=== PATIENT | female | born 1950 | race Caucasian/White ===

== ENCOUNTER 2023-01-18 12:01 | Outpatient (OUT) | payer MEDICARE, SELFPAY ==
[2023-01-18 12:23] LABS: Basophils Percent Auto 0.4 % (0.2-2.0); Eosinophils Absolute Auto 0.1 10^3/uL (0.0-0.7); Eosinophils Percent Auto 1.1 % (0.9-7.0); Hematocrit 40.8 % (36.0-48.0); Hemoglobin 13.7 g/dL (12.0-16.0); Immature Granulocytes Abs Auto 0.06 10^3/uL (0.00-0.03); Immature Granulocytes Pct Auto 0.8 % (0.0-0.5); Lymphocytes Percent Auto 13.5 % (20.5-60.0); Mean Corpuscular HGB Conc 33.6 g/dL (29.9-35.2); Mean Corpuscular Volume 92.3 fL (81.0-99.0); Monocytes Absolute Auto 0.4 10^3/uL (0.3-0.8); Monocytes Percent Auto 5.4 % (1.7-12.0); Neutrophils Absolute Auto 5.6 10^3/uL (1.4-6.5); Neutrophils Percent Auto 78.8 % (43.0-75.0); Platelet Count 226 10^3/uL (150-450); Red Blood Count 4.42 10^6/uL (4.20-5.40); Red Cell Distribution Width 14.5 % (11.0-15.0); White Blood Count 7.1 10^3/uL (4.0-11.0)
[2023-01-18 12:35] LABS: INR 0.97; Prothrombin Time 10.3 sec (9.0-11.6)
[2023-01-18 13:39] LABS: Anion Gap 13.1; BUN Creatinine Ratio 23.8; Calcium 9.9 mg/dL (8.5-10.1); Carbon Dioxide 25.1 mmol/L (21.0-32.0); Chloride 106 mmol/L (98-107); Estimated GFR (African America >60 (>=60); Estimated GFR (Non-African Ame 51 (>=60); Glucose 109 mg/dL (74-106); Potassium 4.2 mmol/L (3.5-5.1); Sodium 140 mmol/L (136-145); Thyroid Stimulating Hormone 2.475 uIU/mL (0.358-3.740)
== END 2023-01-18 12:02 | disposition home or self-care (01) ==
PROVIDERS: PCP Family Medicine; Visit Provider Family Medicine
DX: R23.3 Spontaneous ecchymoses (principal); I10 Essential (primary) hypertension
CPT/HCPCS: 36415; 80048; 84443; 85025; 85610

== ENCOUNTER 2023-05-31 13:39 | Outpatient (OUT) | payer MEDICARE, SELFPAY ==
--- NOTE | 2023-05-31 14:00 | XR_ITS ---
The [address] [address] Patient Name: LINDA BARBOSA MRN: [id number] date: 1950 Sex: F Assigned Patient Location: [facility] Current Patient Location: Accession/Order Number: [id number] Exam Date: 05/31/2023 14:10 Report Date: 06/01/2023 00:45 At the request of: KATELYNN CLARK Procedure: XR lumbar spine 2-3V EXAMINATION: XR lumbar spine 2-3V HISTORY: Low Back Pain M54.50 , chronic; left foot numbness COMPARISON: No relevant comparison available. FINDINGS: BONES: Prominent scoliotic curvature of lumbar spine. Grade 1 retrolisthesis of L2 on 3, L3 on 4, and grade 1 anterior listhesis of L4 on 5, and grade 2 anterior listhesis of L5 on S1. Degenerative endplate changes L1, L2, L3 versus mild compression fractures. Multilevel moderate degenerative facet arthropathy. DISC SPACES: Marked narrowing L1-L2, L2-L3, L3-L4, L5-S1. PARASPINOUS: Negative. No paraspinous abnormality is seen. OTHER: Bilateral hip replacements. XR/XR lumbar spine 2-3V IMPRESSION: 1. Multilevel marked degenerative changes of lumbar spine. Electronically authenticated by: TIM TORREZ Date: 06/01/2023 00:45
== END 2023-05-31 13:40 | disposition home or self-care (01) ==
LOC: LAB 13:43 → RAD 13:51
PROVIDERS: PCP Family Medicine; Visit Provider Family Medicine
DX: G62.9 Polyneuropathy, unspecified (principal); M54.50 Low back pain, unspecified; M51.36 Other intervertebral disc degeneration, lumbar region
CPT/HCPCS: 72100

== ENCOUNTER 2023-06-13 11:12 | Outpatient (OUT) | payer MEDICARE, SELFPAY | END 2023-06-13 11:13 | disposition home or self-care (01) | LOC: LAB 11:13 | PROVIDERS: PCP Family Medicine; Visit Provider Family Medicine | DX: G62.9 Polyneuropathy, unspecified (principal) | CPT/HCPCS: 36415; 82607; 82746 ==

== ENCOUNTER 2023-06-29 13:34 | Outpatient (OUT) | payer MEDICARE, SELFPAY ==
--- NOTE | 2023-06-29 13:38 | MR_ITS ---
[address] [address] Patient Name: LINDA BARBOSA MRN: [id number] date: 1950 Sex: F Assigned Patient Location: MRI Current Patient Location: Accession/Order Number: [id number] Exam Date: 06/29/2023 13:45 Report Date: 07/01/2023 16:44 At the request of: KATELYNN CLARK Procedure: MR lumbar spine wo con EXAM: MR lumbar spine wo con HISTORY: Degenerative Disc Disease M51.36 COMPARISON: None. TECHNIQUE: MRI images obtained with multiple sequences. Noncontrast MRI of the lumbar spine. MRI sequences obtained by standard department protocol. FINDINGS: The conus ends at L1-L2. No abnormal signal to terminal spinal cord. T10-11: No spinal canal stenosis. No neural foraminal stenosis. T11-T12: No spinal canal stenosis or neural foraminal stenosis. T12-L1: Mild disc degeneration. Mild spinal canal narrowing. Bilateral mild neural foraminal narrowing. Mild facet joint arthropathy. L1-L2: Intervertebral disc degeneration. Retrolisthesis of L1 on L2 measuring 0.7 cm. Moderate spinal canal stenosis. Bilateral mild neural foraminal narrowing. Mild facet joint arthropathy. L2-L3: Intervertebral disc degeneration. Mild retrolisthesis of L2 on L3 measuring 0.6 cm. Moderate spinal canal stenosis. Moderate right and mild left neural foraminal narrowing. Mild facet joint arthropathy. L3-L4: Intervertebral disc height is preserved. No spinal canal stenosis. No neural foraminal stenosis. Mild facet joint arthropathy. L4-L5: Intervertebral disc degeneration. Anterolisthesis of L4 on L5 measuring 0.6 cm. Bilateral moderate neural foraminal narrowing. Bilateral advanced facet joint arthropathy. Mild spinal canal narrowing. L5-S1: Osseous fusion of the L5-S1 level. Anterolisthesis of L5 on S1 measuring 0.8 cm. Moderate to severe spinal canal stenosis. Bilateral advanced facet joint arthropathy. Bilateral moderate neural foraminal narrowing. MR/MR lumbar spine wo con IMPRESSION: 1. Moderate to severe spinal canal stenosis at L5-S1. 2. Moderate spinal canal stenosis at L2-L3. 3. Moderate neural foraminal narrowing at bilateral L4-L5 and L5-S1. 4. Advanced facet joint arthropathy at L4-5 and L5-S1. 5. Other degenerative findings as described. Electronically authenticated by: RYLIE CASTILLO Date: 07/01/2023 16:44
== END 2023-06-29 13:35 | disposition home or self-care (01) ==
LOC: MRI 13:34
PROVIDERS: PCP Family Medicine; Visit Provider Family Medicine
DX: M51.36 Other intervertebral disc degeneration, lumbar region (principal); M48.061 Spinal stenosis, lumbar region without neurogenic claudication
CPT/HCPCS: 72148

== ENCOUNTER 2023-08-16 12:48 | Outpatient (OUT) | payer MEDICARE, SELFPAY ==
--- NOTE | 2023-08-16 12:55 | US_ITS ---
The [address] [address] Patient Name: LINDA BARBOSA MRN: [id number] date: 1950 Sex: F Assigned Patient Location: US Current Patient Location: [place] Accession/Order Number: [id number] Exam Date: 08/16/2023 13:00 Report Date: 08/16/2023 15:12 At the request of: KATELYNN CLARK Procedure: US venous doppler LE RT EXAM: US venous doppler LE RT HISTORY: Localized Edema COMPARISON: None. FINDINGS: There is thrombus within the common femoral vein, the profunda femoral vein, the femoral vein extending to the popliteal vein. There are segments within the femoral vein which are occlusive, though the thrombosis is otherwise partially occlusive. Subcutaneous edema is noted in the foreleg. Superficial venous thrombosis is also noted at the junction of the greater saphenous vein with the common femoral vein. US/US venous doppler LE RT IMPRESSION: 1. Deep venous thrombosis extending from the right common femoral vein into the superficial femoral vein to the level of the popliteal vein. There is also thrombosis of the deep profunda femoral vein. 2. Superficial venous thrombosis of the great saphenous vein at its junction with the common femoral vein. Electronically authenticated by: PILAR ADAMS Date: 08/16/2023 15:12
--- OUTSIDE RECORDS SUMMARY | 2023-08-16 13:03 | XMS_ITS | CCD ---
Author Name Unknown Address [address] [place] [address] Organization [facility] Care Team Providers Care Vegetable Grader Name Role Phone Wayne Mccallum Unavailable Jose Najera II Unavailable [phone] MD Vashti Clark Primary Care Provider [phone] MD Jose Najera II Attending Provider Jose Najera II Admitting Unavailabl e Yoakum II, Jose Mandel Attending Unavailabl e Vashti Clark Primary Care Unavailable Yoakum II, Jose Mandel Admitting Unavailabl e Reinaldo II, Jose Mandel Attending Unavailabl e ClarkVashti Primary Care Unavailable Yoakum II, Jose Mandel Admitting Unavailabl e Yoakum II, Jose Mandel Attending Unavailabl e ClarkVashti Primary Care Unavailable Yoakum KRISTY, Jose Mandel Admitting Unavailabl e Reinaldo II, Jose Mandel Attending Unavailabl e Vashti Clark Primary Care Unavailable Reinaldo II, Jose Mandel Admitting Unavailabl e Yoakum II, Jose Mandel Attending Unavailabl e ClarkVashti Primary Care Unavailable AMBER, DR VASHTI Porter Attending Unavailable AMBER, DR VASHTI Porter Primary Care Unavailable AMBER, DR VASHTI Porter Admitting Unavailable SHAN, DR TIM Veronica Consulting Unavailable CLARK, DR VASHTI Porter Consulting Unavailable Vashti Clark Unavailable ANABELLA STEWART Attending Unavailable ANABELLA STEWART Attending Unavailable Allergies Allergy Classification Reported Allergen(s) Allergy Type Date of Onset Reaction(s) Facility (6 sources) patient allergy list reviewed by nurse or physicia Propensity to adverse reactions 5 Comment:Done [facility] Other (6 sources) Allergies Reconciled Propensity to adverse reactions Unknown [facility] Other Medications Current Medications Medication Drug Class(es) Dates Sig (Normalized) Sig (Original) acetaminophen 500 mg oral tablet (5 sources) Start: 10-31-2021 take 500 mg by mouth four times daily Acetaminophen Active 500 MG PO Four times daily 120 October 30, 2021 11:00pm Start: 10-25-2021 End: 10-31-2021 take 1000 mg by mouth every eight hours Acetaminophen Discontinued 1000 MG PO Q8H October 24, 2021 11:00pm October 31, 2021 1:03pm Start: 10-06-2021 take 2 tablets by mo uth every eight hours for pain Acetaminophen 500 MG 2 tablets for pain Orally every 8 hrs for 30 days MED TO BED UPON DISCHARGE DOS:10/24/2021 Sep, Active amoxicillin 500 mg oral capsule (7 sources) Penicillin-class Antibacterial take 1 capsule by mouth every eight hours Amoxicillin 500 MG 1 capsule Orally Three times a day Active amoxicillin 875 mg / clavulanate 125 mg oral tablet (5 sources) Penicillin-class Antibacterial take 1 tablet by mouth every twelve hours Amoxicillin-Pot Clavulanate 875-125 MG 1 tablet Orally every 12 hrs for 7 days Active ascorbic acid 500 mg oral tablet (2 sources) Vitamin C Start: 10-26-19 End: 11-01-19 take 1 tablet by mouth twice daily at mealtime Ascorbic Acid (Vitamin C) (Vitamin C) 500 mg Tablet Active 500 MG PO Twice daily with meals 60 October 30, 2021 11:00pm aspirin 81 mg delayed release oral tablet (5 sources) Platelet Aggregation Inhibitor, Nonsteroidal Anti-inflammatory Drug Start: 10-26-19 End: 11-01-19 take 81 mg by mouth twice daily Aspirin Active 81 MG PO Twice daily 40 October 30, 2021 11:00pm Start: 10-06-2021 take 1 tablet by therese twice daily Aspirin 81 MG 1 tablet Orally BID for 35 days MED TO BED UPON DISCHARGE DOS:10/24/2021 Sep, Active Calcium Carbonate-Vitamin D3 (Oyster Shell Calcium-Vit D3) 500 mg-5 mcg (200 unit) Tablet (2 sources) Start: 10-31-2021 take 1 tablet by mouth twice daily Calcium Carbonate-Vitamin D3 (Oyster Shell Calcium-Vit D3) 500 mg-5 mcg (200 unit) Tablet Active 1 TAB PO Twice daily 60 October 30, 2021 11:00pm Start: 10-25-2021 End: 10-31-2021 take 1 tablet by mouth twice daily Calcium Carbonate-Vitamin D3 (Oyster Shell Calcium-Vit D3) 500 mg-5 mcg (200 unit) Tablet Discontinued 1 TAB PO Twice daily October 24, 2021 11:00pm October 31, 2021 1:03pm Diclofenac (20 sources) Nonsteroidal Anti-inflammatory Drug Start: 02-08-2023 Voltaren 1 % appl y 1-2 grams to affected area Externally 4x's a day for 30 days Jan, Active Start: 02-08-2023 Voltaren 1 % a pply 1-2 grams to affected area Externally 4x's a day for 30 days Jan, Active Start: 11-27-2017 End: 10-25-2021 take 75 mg by mouth twice daily Diclofenac Sodium Discontinued 75 MG PO Twice daily October 09, 2021 11:00pm October 25, 2021 1:10pm docusate sodium 50 mg / sennosides, mcc 8.6 mg oral tablet (3 sources) Start: 10-06-2021 take 2 tablets by mouth every twenty-four hours Senokot S 8.6-50 MG 2 tablets Orally Once a day for 30 day(s) MED TO BED UPON DISCHARGE DOS:10/24/2021 Sep, Active famotidine 20 mg oral tablet (2 sources) Histamine-2 Receptor Antagonist Start: 10-10-2021 End: 10-31-2021 take 20 mg by mouth once daily Famotidine Active 20 MG PO Daily 30 October 30, 2021 11:00pm hyoscyamine sulfate 0.125 mg disintegrating oral tablet (2 sources) Start: 10-31-2021 take 1 tablet by mouth four times daily Hyoscyamine Sulfate (Anaspaz) 0.125 mg Tablet,Disintegrat ing Active 0.125 MG PO Four times daily 120 October 30, 2021 11:00pm Start: 10-10-2021 End: 10-31-2021 take 0.125 mg by mouth four times daily Hyoscyamine Sulfate Discontinued 0.125 MG PO Four times daily October 09, 2021 11:00pm October 31, 2021 1:03pm melatonin 5 mg oral tablet (1 source) Start: 10-31-2021 take 5 mg by mouth once daily at bedtime Melatonin Active 5 MG PO Daily at bedtime October 30, 2021 11:00pm metoprolol tartrate 100 mg oral tablet (20 sources) beta-Adrenergic Alex Start: 02-26-2023 take 1 tablet by mouth every twelve hours Metoprolol Tartrate 100 MG 1 tablet with food Orally Twice a day for 30 days Feb, Active Start: 10-31-2021 take 100 mg by mouth twice daily Metoprolol Tartrate Active 100 MG PO Twice daily 60 October 30, 2021 11:00pm Start: 10-10-2021 End: 10-31-2021 take 100 mg by mouth once daily in the morning Metoprolol Tartrate Discontinued 100 MG PO Every morning October 09, 2021 11:00pm October 31, 2021 1:03pm take 1 tablet by therese th every twenty-four hours Metoprolol Succinate ER 100 MG 1 tablet Orally Once a day for 90 days Active ondansetron 8 mg oral tablet (3 sources) Serotonin-3 Receptor Antagonist Start: 10-06-2021 take 1 tablet by mouth three times daily as needed for nausea Ondansetron HCl 8 MG 1 tablet as needed for nausea Orally TID for 10 days MED TO BED UPON DISCHARGE DOS:10/24/2021 Sep, Active oxyCODONE hydrochloride 5 mg oral tablet (4 sources) Opioid Agonist Start: 10-31-2021 take 5 mg by mouth four times daily Oxycodone Active 5 MG PO Four times daily 20 October 31, 2021 Start: 10-25-2021 End: 10-31-2021 take 5 mg by mouth every four hours Oxycodone Discontinued 5 MG PO Every 4 hours October 25, 2021 October 31, 2021 1:03pm Start: 10-06-2021 take 1 tablet by therese th every four hours as needed for pain oxyCODONE HCl 5 MG 1 tablet as needed for pain Orally every 4 hrs for 10 days MED TO BED UPON DISCHARGE DOS:10/24/2021 Sep, Active raNITIdine 150 mg oral tablet (20 sources) Histamine-2 Receptor Antagonist take 1 tablet by mouth once daily at bedtime Zantac 150 MG 1 tablet at bedtime Orally Once a day prn Active verapamil hydrochloride 180 mg extended release oral tablet (20 sources) Calcium Channel Alex Start: End: take 180 mg by mouth once daily in the morning Verapamil Active 180 MG PO Every morning 30 October 30, 2021 11:00pm Completed/Discontinued Medications Medication Drug Class(es) Dates Sig (Normalized) Sig (Original) cefadroxil 500 mg oral capsule (4 sources) Cephalosporin Antibacterial Start: 10-25-2021 End: 10-31-2021 take 500 mg by mouth twice daily Cefadroxil Discontinued 500 MG PO Twice daily October 24, 2021 11:00pm October 31, 2021 1:03pm Start: 10-06-2021 take 1 capsule by mo ut every twelve hours Cefadroxil 500 MG 1 tablet Orally every 12 hrs for 7 days MED TO BED UPON DISCHARGE DOS:10/24/2021 Sep, Active celecoxib 200 mg oral capsule (5 sources) Nonsteroidal Anti-inflammatory Drug Start: 10-06-2021 End: 10-31-2021 take 200 mg by mouth twice daily Celecoxib Discontinued 200 MG PO Twice daily October 24, 2021 11:00pm October 31, 2021 1:03pm hyaluronate (20 sources) Start: 03-19-2018 Supartz Mar, Start: 03-05-2018 Supartz Feb Start: 02-26-2018 Supartz Feb Start: 02-19-2018 Supartz Feb polyethylene glycol 3350 57367 mg powder for oral solution (4 sources) Osmotic Laxative Start: 10-06-2021 End: 10-31-2021 Polyethylene Glycol 3350 (Miralax) 17 gram Powder In Packet Discontinued 17 GM PO Daily October 24, 2021 11:00pm October 31, 2021 1:03pm Theraputic Injection (20 sources) Start: 03-12-2018 Theraputic Injection Feb, traMADol hydrochloride 50 mg oral tablet (18 sources) Opioid Agonist Start: 10-25-2021 End: 10-31-2021 take 50 mg by mouth every four hours Tramadol Discontinued 50 MG PO Q4H October 24, 2021 11:00pm October 31, 2021 1:03pm Start: 10-06-2021 take 1 tablet by therese th every six hours as needed for pain traMADol HCl 50 MG 1 tablet as needed for pain Orally every 6 hrs for 10 days MED TO BED UPON DISCHARGE DOS:10/24/2021 Sep, Active Start: 07-28-2021 End: 10-24-2021 take 50 mg by mouth twice daily Tramadol Discontinued 50 MG PO Twice daily October 09, 2021 11:00pm October 24, 2021 8:50am triamcinolone acetonide 40 mg/ml injectable suspension (20 sources) Corticosteroid Start: 06-23-2022 Kenalog-40 Feb, 120 mg Start: 03-06-2022 Kenalog-40 Feb, 40 mg Start: 05-24-2020 Kenalog -40 mg May, 40 mg Start: 08-11-2019 Kenalog -40 mg Jul, 40 mg Start: 11-04-2018 Kenalog -40 mg Oct, 40 mg Start: 11-27-2017 Kenalog -40 mg November, 40 mg Problems Active Problems Problem Classification Problem Date Documented Da te Episodic/Chronic Abdominal pain (6 sources) Generalized abdominal pain; Translations: [Generalized abdominal pain] Episodic Administrative/social admission (1 source) Other reduced mobility; Translations: [Impaired mobility and activities of daily living] 10-26-2021 Episodic Coagulation and hemorrhagic disorders (2 sources) Spontaneous ecchymoses Episodic Essential hypertension (20 sources) Hypertensive disorder; Translations: [Essential (primary) hypertension] Onset: 11-11-2014 10-24-2021 Chronic Immunizations and screening for infectious disease (6 sources) Vaccination given; Translations: [Encounter for immunization] Episodic Osteoarthritis (20 sources) Primary gonarthrosis, bilateral; Translations: [Bilateral primary osteoarthritis of knee] Onset: 05-12-2021 Resolved: 03-06-2022 Chronic Other aftercare (20 sources) Patient encounter status; Translations: [Aftercare following joint replacement surgery] Chronic Other aftercare (3 sources) Aftercare following joint replacement surgery Onset: 11-16-2021 Resolved: 01-18-2022 Chronic Other circulatory disease (6 sources) Elevated blood-pressure reading without diagnosis of hypertension; Translations: [Elevated blood-pressure reading, without diagnosis of hypertension] Episodic Other connective tissue disease (20 sources) History of total knee arthroplasty; Translations: [Presence of right artificial knee joint] 10-24-2021 Chronic Other connective tissue disease (6 sources) Presence of right artificial knee joint Onset: 11-16-2021 Resolved: 01-18-2022 Chronic Other connective tissue disease (5 sources) Pain in left foot; Translations: [PAIN IN LEFT FOOT] Onset: 12-12-2022 Episodic Other connective tissue disease (19 sources) Adhesive capsulitis of shoulder; Translations: [Adhesive capsulitis of unspecified shoulder] Episodic Other connective tissue disease (1 source) Adhesive capsulitis of unspecified shoulder; Translations: [Frozen shoulder] Episodic Other gastrointestinal disorders (1 source) Irritable bowel syndrome; Translations: [Irritable bowel syndrome without diarrhea] 10-26-2021 Chronic Other injuries and conditions due to external causes (6 sources) History of fall; Translations: [History of falling] Episodic Other nervous system disorders (20 sources) Chronic pain; Translations: [Other chronic pain] Chronic Other nervous system disorders (4 sources) Other chronic pain; Translations: [Other chronic pain G89.29] Onset: 05-12-2021 Resolved: 03-06-2022 Chronic Other nervous system disorders (5 sources) Polyneuropathy; Translations: [Polyneuropathy, unspecified] Chronic Other nervous system disorders (1 source) Polyneuropathy, unspecified Chronic Other nervous system disorders (1 source) Postoperative pain ; Translations: [Other acute postprocedural pain] 10-26-2021 Episodic Other nutritional; endocrine; and metabolic disorders (12 sources) Obese class I; Translations: [Body mass index (BMI) 31.0-31.9, adult] Chronic Other nutritional; endocrine; and metabolic disorders (6 sources) Body mass index 30+ - obesity; Translations: [Body mass index 36.0-36.9, adult] Onset: 08-31-2017 Chronic Other nutritional; endocrine; and metabolic disorders (6 sources) Obese class II; Translations: [Body mass index 37.0-37.9, adult] Onset: 08-31-2017 Chronic Residual codes; unclassified (1 source) Patient encounter status; Translations: [Encounter for prophylactic measures, unspecified] 10-26-2021 Episodic Skin and subcutaneous tissue infections (1 source) Cellulitis of left toe Episodic Spondylosis; intervertebral disc disorders; other back problems (10 sources) Lumbar spondylosis with myelopathy; Translations: [Other spondylosis with myelopathy, lumbar region] Onset: 11-11-2014 Chronic Spondylosis; intervertebral disc disorders; other back problems (19 sources) Low back pain; Translations: [Lumbar pain] Episodic Unclassified (1 source) Presence of right artificial knee joint; Translations: [Presence of right artificial knee joint] Onset: 11-02-2022 Unclassified (1 source) Pain in left knee; Translations: [Pain in left knee] Onset: 06-23-2022 Unclassified (1 source) Z47.1 - Aftercare following joint replacement surgery; Translations: [Z47.1 - Aftercare following joint replacement surgery] Onset: 01-18-2022 Unclassified (1 source) M17.11 - Unilateral primary osteoarthritis, right knee; Translations: [M17.11 - Unilateral primary osteoarthritis, right knee] Onset: 12-07-2021 Unclassified (1 source) Z96.651 - Presence of right artificial knee joint; Translations: [Z96.651 - Presence of right artificial knee joint] Onset: 12-07-2021 Past or Other Problems Problem Classification Problem Date Documented Da te Episodic/Chronic Other ear and sense organ disorders (6 sources) Impacted cerumen; Translations: [Impacted cerumen] Onset: 01-25-2016 Episodic Other gastrointestinal disorders (6 sources) Diarrhea; Translations: [Diarrhea] Onset: 12-03-2017 Episodic Other non-traumatic joint disorders (4 sources) Pain in right knee; Translations: [Right knee pain M25.561] Onset: 05-12-2021 Resolved: 03-06-2022 Episodic Other non-traumatic joint disorders (4 sources) Pain in left knee; Translations: [Left knee pain M25.562] Onset: 05-12-2021 Resolved: 03-06-2022 Episodic Other non-traumatic joint disorders (6 sources) Arthralgia of the lower leg; Translations: [Pain in right knee] Onset: 11-12-2017 Episodic Other upper respiratory infections (6 sources) Acute maxillary sinusitis; Translations: [Acute recurrent maxillary sinusitis] Onset: 08-31-2017 Episodic Unclassified (1 source) Lumbar pain; Translations: [Lumbar pain] Unclassified (2 sources) Lumbar pain M54.50 Results Test Name Value Interpretation Reference Range Facil ity XR knee RT 2Von 11-02-2022 XR knee RT 2V [facility] [address] [place] [address] XRay Report Signed Patient: Linda Fink MR#: [id number] [birth year] : 1950 Acct:[id number] Age/Sex: 72 / F ADM Date: 11/02/22 [place] [facility] Attending Dr: Jose Najera II, MD Copies to: Jose Najera MD Ordering Provider: Jose Najera MD Date of Service: 11/02/22 XR/XR knee RT 2V: History of total right knee replacement RIGHT KNEE - 2 views CLINICAL HISTORY: Follow-up right TKA COMPARISON: Right knee 01/18/2022 FINDINGS: No evidence of hardware complication or acute bony process. XR/XR knee RT 2V IMPRESSION: NO EVIDENCE OF HARDWARE COMPLICATION. Impression dictated by: Audie Mondragon Jr., D.OEdgard11/02/2022 3:18 PM Dictation Location: [facility] Transcribed By: [facility] 11/02/22 1518 Dictated By: Audie Mondragon Jr, DO 11/02/22 1517 Signed By: 11/02/22 1518 [facility] XR knee RT 2V [facility] [employer] Other XR knee RT 2V [facility] [employer] Other XR knee RT 2V [address] [facility] [employer] Other [place]R knee [place] [address] [address] [facility] [employer] Other XR knee RT 2V XRay Report [facility] [employer] Other XR knee RT 2V Signed [facility] [employer] Other XR knee RT 2V Patient: Krystle Fink MR#: [id number] [facility] [employer] Other XR knee RT 2V [address] [place] [employer] Other XR knee RT 2V : 1950 Acct:[id number] [facility] Other XR knee RT 2V Age/Sex: 72 / F ADM Date: 11/02/22 [facility] Other XR knee RT 2V Loc: [facility] Room: Type : REG CLI [facility] Other XR knee RT 2V Attending Dr: Jose Najera II, MD [facility] Other XR knee RT 2V Copies to: Jose Najera MD [facility] Other XR knee RT 2V Ordering Provider: Jose Najera MD [facility] Other XR knee RT 2V Date of Service: 11/02/22 [facility] Other XR knee RT 2V XR/XR knee RT 2V: History of total right knee replacement [facility] Other XR knee RT 2V RIGHT KNEE - 2 views [employer] Other XR knee RT 2V CLINICAL HISTORY: Follow-up right TKA [facility] Other XR knee RT 2V COMPARISON: Right kn ee 01/18/2022 [facility] Other XR knee RT 2V FINDINGS: [facility] Other XR knee RT 2V No evidence of hardware complication or acute bony process. [facility] Other XR knee RT 2V XR/XR knee RT 2V [facility] Other XR knee RT 2V IMPRESSION: [employer] Other XR knee RT 2V NO EVIDENCE OF HARDWARE COMPLICATION. [facility] Other XR knee RT 2V Impression dictated by: Audie Mondragon Jr.Reilly11/02/2022 3:18 PM [facility] Other XR knee RT 2V Dictation Location: [facility] [employer] Other XR knee RT 2V Transcribed By: PWS 11/02/22 [facility] Other XR knee RT 2V Dictated By: Audie Mondragon Jr, DO 11/02/22 [facility] Other XR knee RT 2V Signed By: [facility] Other XR knee RT 2V 11/02/22 [facility] [employer] [facility] [employer] Other XR knee LT 4V*on 06-23-2022 XR knee LT 4V* [facility] [place] [address] XRay Report Signed Patient: Linda Fink MR#: [id number] [birth year] : 1950 Acct:[id number] Age/Sex: 72 / F ADM Date: 06/23/22 [place] [facility] [place]: Type: [facility] Attending Dr: Jose Najera II, MD Copies to: Jose Najera MD Ordering Provider: Jose Najera MD Date of Service: 06/23/22 XR/XR knee LT 4V*: PAIN 4 views LEFT knee plain film COMPARISON:01/24/21 HISTORY:LEFT knee pain for 3 months. Extensive vbdu-lf-sdby contact of the lateral compartment. Advanced patellofemoral degeneration with joint space narrowing, mild subluxation and marginal spurring. Unremarkable medial compartm ent. Degenerative subluxation and angulation present.Small joint effusion. XR/XR knee LT 4V* IMPRESSION:Extensive degenerative change. Impression dictated by: Yon Finn M.D.06/23/2022 12:08 PM Dictation Location: [facility] Transcribed By: [facility] 06/23/22 1208 Dictated By: Yon Finn DO 06/23/22 1206 Signed By: 06/23/22 1208 [facility] XR femur RT 2V*on 01-18-2022 XR femur RT 2V* [facility] Main [address] [address] XRay Report Signed Patient: Linda Fink MR#: [id number] [birth year] : 1950 Acct:[id number] Age/Sex: 71 / F ADM Date: 01/18/22 Loc: [facility] Room: Type: REG CLI Attending Dr: Jose Najera II, MD Copies to: Jose Najera MD Ordering Provider: Jose Najera MD Date of Service: 01/18/22 XR/XR tibia fibula RT 2V*: Aftercare following joint replacement surgery ([id number]) XR/XR femur RT 2V*: Aftercare following joint replacement surgery 2 views RIGHTtibia and fibula HISTORY: Status post RIGHT total knee arthroplasty COMPARISON: None RIGHT hip arthroplasty present. A knee arthroplasty identified. Bony structures intact. No worrisome bony lesion. No acute bony findings. Adequate bony alignment. No soft tissue abnormality. The extremity length from the central portion of the femoral head arthroplasty to the midportion of the ankle is 99 cm. XR/XR tibia fibula RT 2V* IMPRESSION: Postoperative changes. Plain film RIGHT femur Postsurgical changes redemonstrated. No worrisome bony finding identified. Adequate bony alignment. IMPRESSION: Postsurgical change. Impression dictated by: Yon Finn M.D.01/18/2022 2:44 PM Dictation Location: [place] [address] Transcribed By: [facility] 01/18/22 1444 Dictated By: Yon Finn DO 01/18/22 1440 Signed By: 01/18/22 1444 [facility] XR knee RT 2Von 01-18-2022 XR knee RT 2V [facility] Main [address] [address] XRay Report Signed Patient: Linda Fink MR#: [id number] [birth year] : 1950 Acct:[id number] Age/Sex: 71 / F ADM Date: 01/18/22 [place] [facility] [place]: Type: REG CLI Attending Dr: Jose Najera II, MD Copies to: Jose Najera MD Ordering Provider: Jose Najera MD Date of Service: 01/18/22 XR/XR knee RT 2V: Aftercare following joint replacement surgery RIGHT KNEE - 2 views CLINICAL HISTORY: Follow-up total knee arthroplasty. COMPARISON: Right knee 12/07/2021 FINDINGS: No hardware complication. No acute bony process. XR/XR knee RT 2V IMPRESSION: NO HARDWARE COMPLICATION. Impression dictated by: Audie Mondragon Jr., D.O.01/18/2022 2:38 PM Dictation Location: [facility] Transcribed By: DALILA 01/18/22 1438 Dictated By: Audie Mondragon Jr, DO 01/18/22 1437 Signed By: 01/18/22 1438 [facility] XR knee RT 3V - NOT FOR ER U Edgardo 12-07-2021 XR knee RT 3V - NOT FOR ER USE [facility] [place] [address] XRay Report Signed Patient: Linda Fink MR#: [id number] [birth year] : 1950 Acct:[id number] Age/Sex: 71 / F ADM Date: 12/07/21 Loc[place] [facility] Room: Type: [facility] Attending Dr: Jose Najear II, MD Ordering Provider: Jose Najera MD Date of Service: 12/07/21 XR/XR knee RT 3V - NOT FOR ER USE: History of total right knee replacement Copies to: Jose Najera MD RIGHT KNEE - 3 views CLINICAL HISTORY: Follow-up right TKA COMPARISON: Right knee 10/24/2021 FINDINGS: Right knee prosthesis is in place without radiographic complication. No acute bony process. XR/XR knee RT 3V - NOT FOR ER USE IMPRESSION: NO EVIDENCE OF HARDWARE COMPLICATION. Impression dictated by: Audie Mondragon Jr., D.O.12/07/2021 2:09 PM Dictation Location: [facility] Transcribed By: DALILA 12/07/21 1409 Dictated By: Audie Mondragon Jr, DO 12/07/21 1409 Signed By: 12/07/21 1409 [facility] Vital Signs Date Time Vital Sign Value Performing Clinician Facility 05-29-2023 11:30-0500 Body height 161.29 cm Vashti Clark Other [facility] Other 05-29-2023 11:30-0500 Body mass index (BMI) [Ratio] 37.41 kg/m2 Vashti Clark Other [facility] Other 05-29-2023 11:30-0500 Body weight 97.34 kg Vashti Clark Other [facility] Other 05-29-2023 11:30-0500 Diastolic blood pressure 85 mm[Hg] Vashti Clark Other [facility] Other 05-29-2023 11:30-0500 Respiratory rate 16 /min Vashti Clark Other [facility] Other 05-29-2023 11:30-0500 Systolic blood pressure 174 mm[Hg] Vashti Clark Other [facility] Other 03-15-2023 08:45-0400 Body height 161.29 cm Jose Yoakum II Other [facility] Other 03-15-2023 08:45-0400 Body mass index (BMI) [Ratio] 38.01 kg/m2 Jose Yoakum II Other [facility] Other 03-15-2023 08:45-0400 Body weight 98.88 kg Jose Yoakum II Other [facility] Other 01-18-2023 11:15-0400 Body height 161.29 cm Vashti Clark Other [facility] Other 01-18-2023 11:15-0400 Body mass index (BMI) [Ratio] 38.01 kg/m2 Vashti Clark Other [facility] Other 01-18-2023 11:15-0400 Body weight 98.88 kg Vashti Clark Other [facility] Other 01-18-2023 11:15-0400 Diastolic blood pressure 81 mm[Hg] Vashti Clark Other [facility] Other 01-18-2023 11:15-0400 Systolic blood pressure 167 mm[Hg] Vashti Clark Other [facility] Other 12-12-2022 13:45-0400 Body height 161.29 cm Vashti Clark Other [facility] Other 12-12-2022 13:45-0400 Body mass index (BMI) [Ratio] 37.48 kg/m2 Vashti Clark Other [facility] Other 12-12-2022 13:45-0400 Body weight 97.52 kg Vashti Clark Other [facility] Other 12-12-2022 13:45-0400 Diastolic blood pressure 59 mm[Hg] Vashti Clark Other [facility] Other 12-12-2022 13:45-0400 Systolic blood pressure 147 mm[Hg] Vashti Clark Other [facility] Other 11-02-2022 15:45-0400 Body height 167.64 cm Jose Najera II Other [facility] Other 12-07-2021 11:45-0400 Body height 167.64 cm Jose Reinaldo II Other [facility] Other 12-07-2021 11:45-0400 Body mass index (BMI) [Ratio] 34.7 kg/m2 Jose Yoakum II Other [facility] Other 12-07-2021 11:45-0400 Body weight 97.52 kg Jose Yoakum II Other [facility] Other 11-16-2021 11:45-0400 Body height 167.64 cm Jose Reinaldo II Other [facility] Other 11-16-2021 11:45-0400 Body mass index (BMI) [Ratio] 34.7 kg/m2 Jose Yoakum II Other [facility] Other 11-16-2021 11:45-0400 Body weight 97.52 kg Jose Yoakum II Other [facility] Other 10-06-2021 16:00-0400 Body height 167.64 cm Jose Yoakum II Other [facility] Other 10-06-2021 16:00-0400 Body mass index (BMI) [Ratio] 34.7 kg/m2 Jose Reinaldo II Other [facility] Other 10-06-2021 16:00-0400 Body weight 97.52 kg Jose Reinaldo II Other [facility] Other 09-13-2021 16:15-0500 Body height 167.64 cm Wayne Mccallum Other [facility] Other 09-13-2021 16:15-0500 Body mass index (BMI) [Ratio] 34.7 kg/m2 Wayne Mccallum Other [facility] Other 09-13-2021 16:15-0500 Body weight 97.52 kg Wayne Mccallum Other [facility] Other Encounters Encounter Date Encounter Type Care Provider Facility Start: 08-13-2023 End: 08-13-2023 ambulatory Jose Najera II Other [facility] Other Start: 08-13-2023 Telephone encounter Jose Najera II [facility] Start: 07-03-2023 End: 07-03-2023 ambulatory Vashti Clark Other [facility] Other Start: 07-03-2023 Telephone encounter Vashti Clark [facility] Start: 06-18-2023 End: 06-18-2023 ambulatory ANABELLA D DOLCE Not Available Start: 06-11-2023 End: 06-11-2023 ambulatory Vashti Clark Other [facility] Other Start: 06-11-2023 Telephone encounter Vashti Clark [facility] Start: 06-01-2023 End: 06-01-2023 ambulatory ANABELLA D DOLCE Not Available Start: 05-29-2023 End: 05-29-2023 ambulatory Vashti Clark Other [facility] Other Start: 05-29-2023 Office outpatient vi sit 15 minutes Vashti Clark [facility] Start: 05-29-2023 Telephone encounter Vashti Clark [facility] Start: 05-14-2023 End: 05-14-2023 ambulatory Jose Najera II Other [facility] Other Start: 05-14-2023 Telephone encounter Jose Najera II [facility] Start: 04-02-2023 End: 04-02-2023 ambulatory Vashti Clark Other [facility] Other Start: 04-02-2023 Telephone encounter Vashti Clark [facility] Start: 03-15-2023 End: 03-15-2023 ambulatory Jose Yoakum II Other [facility] Other Start: 03-15-2023 Office outpatient vi sit 25 minutes Jose Reinaldo II [facility] Start: 02-26-2023 End: 02-26-2023 ambulatory Vashti Clark Other [facility] Other Start: 02-26-2023 Telephone encounter Vashti Clark [facility] Start: 02-08-2023 End: 02-08-2023 ambulatory Jose Yoakum II Other [facility] Other Start: 02-08-2023 Office outpatient vi sit 25 minutes Jose Reinaldo II [facility] Start: 01-19-2023 End: 01-19-2023 ambulatory Vashti Clark Other [facility] Other Start: 01-19-2023 Telephone encounter Vashti Clark [facility] Start: 01-18-2023 End: 01-18-2023 ambulatory Vashti Clark Other [facility] Other Start: 01-18-2023 Office outpatient vi sit 15 minutes Vashti Clark [facility] Start: 01-17-2023 End: 01-17-2023 ambulatory Jose Reinaldo II Other [facility] Other Start: 01-17-2023 Telephone encounter Jose Yoakum II [facility] Start: 12-13-2022 End: 12-13-2022 ambulatory Vashti Clark Other [facility] Other Start: 12-13-2022 Telephone encounter Jose Yoakum II [facility] Start: 12-12-2022 End: 12-13-[address] VASHTI CLARK Facility: Start: 12-12-2022 Office outpatient vi sit 15 minutes Vashti Clark [facility] Start: 11-02-2022 End: 11-02-2022 ambulatory Jose Peñale II [facility] Other Start: 11-02-2022 Office outpatient vi sit 25 minutes Jose De Andaisle II [facility] Start: 10-10-2022 End: 10-10-2022 ambulatory Jose Yoakum II Other [facility] Other Start: 10-10-2022 Telephone encounter Jose Yoakum II [facility] Start: 06-23-2022 End: 06-23-2022 ambulatory Jose Peñale II Facility:[facility] Start: 06-23-2022 End: 06-23-2022 ambulatory MD Vashti Clark Work Phone: [facility] Work Phone: Start: 06-23-2022 End: 06-23-2022 Patient encounter procedure MD Vashti Clark Work Phone: [facility] Start: 04-13-2022 End: 04-13-2022 ambulatory Jose Peñale II Other [facility] Other Start: 04-13-2022 Telephone encounter Jose Reinaldo II [facility] Start: 03-06-2022 End: 03-06-2022 ambulatory Wayne Mccallum Other [facility] Other Start: 03-06-2022 Office outpatient vi sit 15 minutes Wayne Mccallum [facility] Start: 01-18-2022 (Post-Op) Post-Op Jose Yoakum II [facility] Start: 01-18-2022 End: 01-18-2022 ambulatory Jose Tequila Peñale II [facility] [employer] [facility] Other Start: 12-07-2021 (Post-Op) Post-Op Jose Peñale II [facility] Start: 12-07-2021 End: 12-07-2021 ambulatory Jose Najera II [facility] Other Start: 11-21-2021 Pre-procedure evaluation check oJse Pñeale II Other [facility] Other Start: 11-16-2021 End: 11-16-2021 ambulatory Jose Peñale II Other [facility] Other Start: 11-16-2021 Office outpatient vi sit 15 minutes Jose Peñale II [facility] Start: 10-14-2021 (Prolonged) Prolonge d Services Jose Peñale II [facility] Start: 10-14-2021 End: 10-14-2021 ambulatory Jose Peñale II Other [facility] Other Start: 10-06-2021 End: 10-06-2021 ambulatory Jose Peñale II Other [facility] Other Start: 10-06-2021 Office outpatient vi sit 25 minutes Jose Peñale II [facility] Start: 09-13-2021 End: 09-13-2021 ambulatory Jose Peñale II Other [facility] Other Start: 09-13-2021 Office outpatient vi sit 25 minutes Wayne Mccallum [facility] Start: 09-13-2021 Telephone encounter Jose Peñale II [facility] Start: 08-09-2021 End: 08-09-2021 ambulatory Wayne Mccallum Other [facility] Other Start: 08-09-2021 Telephone encounter Wayne Mccallum [facility] Start: 07-28-2021 End: 07-28-2021 ambulatory Wayne Mccallum Other [facility] Other Start: 07-28-2021 Office outpatient vi sit 15 minutes Wayne Mccallum [facility] Start: 06-27-2021 Adult health examination Jose Najera II Other [facility] Other Start: 05-12-2021 Office outpatient vi sit 15 minutes Wayne Mccallum [facility] Procedures Date Procedure Procedure Detail Performing Clinician Start: 06-23-2022 Radiologic examinati on of knee MD Vashti Clark Work Phone: Start: 12-27-2017 Screening for malign ant neoplasm of colon Jose Najera II Other Start: 11-25-2015 General examination of patient Jose Najera II Other Start: 11-25-2015 Screening mammography R anthony Reinaldo [facility] Other Screening for malign ant neoplasm of breast Jose Najera II Other Immunizations Immunization Date Immunization Notes Care Provider Fa [facility] 05-29-2023 influenza, high dose seasonal, preservative-free Vashti Clark Other [facility] Other 04-11-2021 COVID-19 mRNA Comirnaty (Pfizer) MD Vashti Clark Work Phone: [facility] 09-07-2020 COVID-19 mRNA Comirnatwinter (Pfizer) MD Vashti Clark Work Phone: [facility] 08-17-2020 COVID-19 mRNA Comirnatwinter (Pfizer) MD Vashti Clark Work Phone: [facility] 05-24-2020 Kenalog -40 mg Wayne Mccallum Other [facility] Other 03-31-2020 influenza virus vaccine, split virus (incl. purified surface antigen) Jose Najera II Other [facility] Other 08-11-2019 Kenalog -40 mg Wayne Payneer Other [facility] Other 11-04-2018 Kenalog -40 mg Wayne Felter Other [facility] Other 03-19-2018 Supartz Wayne Mccallum Other [facility] Other 03-12-2018 Theraputic Injection Wayne Mccallum Other [facility] Other 03-05-2018 Supartz Wayne Mccallum Other [facility] Other 02-26-2018 Daya Mccallum Other [facility] Other 02-19-2018 Daya Mccallum Other [facility] Other 11-27-2017 Kenalog -40 mg Wayne Mccallum Other [facility] Other 05-31-2016 influenza virus vaccine, split virus (incl. purified surface antigen) Jose Najera II Other [facility] Other 05-31-2016 pneumococcal polysaccharide vaccine, 23 valent Jose Najera II Other [facility] Other Payers Date Payer Category Payer Self-pay [id number] 1961 Medicare [id number] 2.1 [id number] 1961 Unknown [id number] 2.1 [id number] 1950 Unknown [id number] 2.16.84 [id number] 1950 Unknown [id number] 1950 Unknown [id number] Unknown Karen BC/JM [id number] Unknown [id number] 2.16.8 [id number] Unknown [id number] 2.16.8 [id number] Unknown [id number] 2.16.8 [id number] Unknown [id number] 2.16.8 [id number] Unknown [id number] 2.16.8 [id number] Social History Date Type Detail Facility Unknown if ever smoked [facility] Other Sex Assigned At Sex Assigned At Bir th [facility] Other Start: 10-26-2021 Tobacco smoking status NHIS Never smoked tobacco (finding) [facility] Start: 1950 Sex Assigned At Female F [facility] Medical Equipment Procedure Code Equipment Code Equipment Origin al Text Equipment Identifier Dates Arthroplasty, knee, total, minimally invasive Orthopaedic cement, non-medicated [id number] FDA Start: 10-24-2021 Arthroplasty, knee, total, minimally invasive Uncoated knee femur prosthesis, metallic [id number] FDA Start: 10-24-2021 Arthroplasty, knee, total, minimally invasive Tibial insert ()[id number] FDA Start: 10-24-2021 Arthroplasty, knee, total, minimally invasive Polyethylene patella prosthesis ()[id number] FDA Start: 10-24-2021 Arthroplasty, knee, total, minimally invasive Knee stem ()[id number] FDA Start: 10-24-2021 Arthroplasty, knee, total, minimally invasive Uncoated knee tibia prosthesis, metallic [id number] [facility] Start: 10-24-2021 Clinical Notes 05-12-2021 to 07-03-2023 Note Date & Type Note Facility 07-03-2023 Evaluation note Encounter Date Diagnosis Assessment Notes Jun, Lumbar pain (ICD-10 - M54.50) [facility] Other 11-27-2023 Evaluation note* Encounter Date Diagnosis Assessment Notes Treatment Notes Treatment Clinical Notes May, DDD (degenerative disc disease), lumbar (ICD-10 - M51.36) [facility] Other 11-14-2023 Evaluation note* Encounter Date Diagnosis Assessment Notes Treatment Notes Treatment Clinical Notes May, Peripheral polyneuropathy (ICD-10 - G62.9) Requests labs to r/o metabolic causes. 14 May, 2023 Lumbar pain (ICD-10 - M54.50) Chronic lumbar pain. Agrees to start w xray. May, Paronychia, toe, lef t (ICD-10 - L03.032) Pt requests antibiotic at end of visit. Keep foot clean and dry. [facility] Other 08-31-2023 Evaluation note* Encounter Date Diagnosis Assessment Notes Treatment Notes Treatment Clinical Notes Feb, History of total right knee replacement (ICD-10 - Z96.651) Feb, Primary osteoarthritis of left knee (ICD-10 - M17.12) Feb, Other 1. We had a marisa g discussion with the patient today concerning their left knee osteoarthritis. The radiographs do show osteoarthritis of the knee. At this time the patient would like to avoid surgical intervention. We did discuss the risk and benefits of surgical versus nonoperative management. The patient would like to proceed with nonoperative management. We discussed that our options include injections, physical therapy, and the consistent use of anti-inflammatories. All 3 of these options, including their risks and benefits, were discussed at length with the patient. 2. Tylenol: Discussed taking Tylenol (acetaminophen). Recommended adjusting their dosing to 1000mg by mouth up to 3 times a day. 3. NSAIDs: Recommended continuing with her diclofenac and Voltaren gel 4. Physical therapy: Discussed formal physical therapy and home regimen. Patient preferred no PT at this time. 5. Injections: Discussed injections as a treatment option. After consent was obtained, the left knee was injected with 3cc Kenalog and 7cc bupivicaine using sterile technique. Patient tolerated the injection well. 6. Follow up 3 months. Patient would like to get a left knee replacement and sometime in September. However if the pain worsens she may want to try to get it done sooner because she has a big wedding planned the end of August 2023. [facility] Other 07-27-2023 Evaluation note* Encounter Date Diagnosis Assessment Notes Treatment Notes Treatment Clinical Notes Jan, History of total right knee replacement (ICD-10 - Z96.651) Jan, Primary osteoarthritis of both knees (ICD-10 - M17.0) Jan, Other We did discuss treatment options for her left knee and her generalized pain. At this point time if she is not going to take any systemic anti-inflammatory medications then I would recommend more topical anti-inflammatori es like Voltaren gel. I prescribed her this today and recommended her to give this a try. If she still having significant pain or the knee pain flares up again she can call back and we can consider other options as well. She did inquire about medical marijuana and I recommended that she talk with her primary care doctor to determine if there is someone who does prescribe it. At this point time it is not something that I prescribed. [facility] Other 07-06-2023 Evaluation note* Encounter Date Diagnosis Assessment Notes Treatment Notes Treatment Clinical Notes Jan, Easy bruisability (ICD-10 - R23.3) Pt will get labs today. Discussed possible link w the frequent NSAIDs Jan, Essential (primary) hypertension (ICD-10 - I10) Due for labs. Possible elevated glucose - nonfasting, had steroid pills and injections due to foot issues. She is seeing podiatry for plantar fasciitis. [facility] Other 07-06-2023 Evaluation note* Encounter Date Diagnosis Assessment Notes Treatment Notes Treatment Clinical Notes Jan, Easy bruisability (ICD-10 - R23.3) Pt will get labs today. Discussed possible link w the frequent NSAIDs Jan, Essential (primary) hypertension (ICD-10 - I10) Blood pressure remains well controlled at this time. Denies cardiac symptoms. Shows no signs or symptoms or poor control. Patient to continue with above medication and we will continue to monitor. Advised to pay attention to body and symptoms. Any developing patterns. Stay well hydrated. [facility] Other 05-31-2023 NotePROCEDURE: XR FOOT LT MIN 3 VIEWS HISTORY: Pain in left foot ; acute left foot numbness COMPARISON: None. FINDINGS: BONES:Moderate degenerative changes of the first tarsal-metatarsal joint. Mild degenerative enthesopathic spurring of the calcaneus. No fracture, dislocation, bone lesion. SOFT TISSUES:No visible soft tissue swelling. EFFUSION:None visible. OTHER: Negative. IMPRESSION: 1. No appreciable acute bone abnormality. 2. Mild/moderate degenerative changes. Electronically authenticated by: TIM TORREZ Date: 2022-12-13 08:39[facility]05-30-2023 Evaluation note* Encounter Date Diagnosis Assessment Notes Treatment Notes Treatment Clinical Notes November, Left foot pain (ICD-10 - M79.672) Discussed primary concern of stress fracture. Pt agrees to xray. Reviewed ortho notes. She is to followup there prn. [facility] Other 2023 Evaluation note* Encounter Date Diagnosis Assessment Notes Treatment Notes Treatment Clinical Notes Oct, History of total right knee replacement (ICD-10 - Z96.651) Oct, Primary osteoarthritis of both knees (ICD-10 - M17.0) Oct, Other [facility]KA at [facility] on 10/24/2021 Happy with surgical result Follow up yearly with standing AP and lateral xrays of the right knee In regards to the left knee, patient's had a great result with steroid injection previously and I would recommend doing another one today. Patient agreed. After consent was obtained, the left knee was injected with 3cc Kenalog and 7cc bupivicaine using sterile technique. Patient tolerated the injection well. She can call in the future on a as needed basis for the left knee. [facility] Other 09-29-2022 Evaluation note* Encounter Date Diagnosis Assessment Notes Treatment Notes Treatment Clinical Notes Mar, Primary osteoarthritis of both knees (ICD-10 - M17.0) [facility] Other 08-22-2022 Evaluation note* Encounter Date Diagnosis Assessment Notes Treatment Notes Treatment Clinical Notes Feb, Primary osteoarthritis of both knees (ICD-10 - M17.0) We discussed treatment options for the patient's persistent left knee pain. She shows notable pain consistent with the knee joint. She has failed multiple previous conservative treatment options. Given location of pain and exam findings, patient is a candidate for a repeat left knee injection which we will proceed with today in office. Risks and benefits of procedure explained to patient; patient verbalizes understanding. Patient tolerated well. Feb, Right knee pain (ICD-10 - M25.561) Feb, Left knee pain (ICD-10 - M25.562) Feb, Other chronic pain (ICD-10 - G89.29) Feb, Other Above note writ ten by Richar Kruger LPN, Sleeping Car Service Attendant. Edited and approved by Dr. Wayne Mccallum MD. [facility] Other 07-06-2022 Evaluation note* Encounter Date Diagnosis Assessment Notes Treatment Notes Treatment Clinical Notes Jan, Primary osteoarthritis of both knees (ICD-10 - M17.0) Jan, Aftercare following joint replacement surgery (ICD-10 - Z47.1) Jan, History of total right knee replacement (ICD-10 - Z96.651) Jan, Other [facility]KA at [facility] on 10/24/2021 Doing well Discussed post-op dental prophylaxis. Shared decision made to continue prophylactic antibiotics indefinitely. Follow-up at 1 year post-op for repeat examination and 2 view x-rays of the right knee. Patient instructed to call with any questions or concerns. [facility] Other 05-25-2022 Evaluation note* Encounter Date Diagnosis Assessment Notes Treatment Notes Treatment Clinical Notes November, Primary osteoarthritis of both knees (ICD-10 - M17.0) November, Aftercare following joint replacement surgery (ICD-10 - Z47.1) November, History of total right knee replacement (ICD-10 - Z96.651) November, Other [facility] at [facility] on 10/24/2021 Doing well Patient may continue activities as tolerated. Continue PT as recommended. Continue taking omeb-zoi-ofbeuzs anti-inflammatori es as needed for assistance with swelling and pain associated with the operative extremity. Follow-up in 6 weeks for repeat examination and long standing x-rays. [facility] Other 05-04-2022 Evaluation note* Encounter Date Diagnosis Assessment Notes Treatment Notes Treatment Clinical Notes November, Primary osteoarthritis of both knees (ICD-10 - M17.0) November, Aftercare following joint replacement surgery (ICD-10 - Z47.1) November, History of total right knee replacement (ICD-10 - Z96.651) November, Other Overall patient is continue to progress quite well. At this point recommended continuing weightbearing as tolerated increasing her activities as tolerated. She will continue to work with outpatient therapy. She will continue her aspirin for DVT prophylaxis. She is already off of her narcotic pain medications. She is using a cane occasionally. Overall I think her wound looks good and we will continue to heal. I will plan to see her back in 3 weeks for 3 views of the right knee. [facility] Other 04-01-2022 Evaluation note* Encounter Date Diagnosis Assessment Notes Treatment Notes Treatment Clinical Notes Oct, Other Prolonged Services 1. H and P date: 10/06/2021 2. Diagnosis: Right knee primary osteoarthritis 3. Counseling: Counseling education was provided her history and physical 4. Coordination of care: The patient was discussed at today's total joints meeting with anesthesia, OR staff, and implant reps in an effort to coordinate the patient's care during the perioperative period. The anesthesiologist was involved in discussions regarding the patient's pain management such as regional blocks, anesthesia plans the day of surgery such as general versus spinal, as well as a final review of lab work to ensure the patient could proceed with surgery safely. The sugar plantation manager was vital for surgery timing and scheduling purposes. The implant rep was also available for necessary discussions regarding preoperative templates that were created on preoperative x-rays to ensure the appropriate implants and sizes of implants would be available the day of surgery. The patient's discharge plan was also discussed and the final decision was confirmed. 5. Medication Changes: Due to her slightly elevated creatinine at her PST visit, we will hold Celebrex and Toradol until a repeat creatinine in the morning of surgery can be reviewed. 6. Lab Tests: The patient's screening tests including albumin levels, vitamin D levels, hemoglobin, hemoglobin A1c, cotinine serum level, and MRSA nasal cultures were all reviewed to ensure appropriate perioperative care can be performed. This included selection of perioperative antibiotics, surgical dressing, and any contact precautions that may need to be enacted. The patient's presurgical testing lab work was also reviewed. This included a CBC, BMP, UA, fructosamine, and a blood type and screen. This lab work was discussed with anesthesia during today's total joints meeting to ensure the patient could proceed with surgery safely. 7. Review of reports/records: Patient's surgical records were reviewed in regards to her right and left total hips. These demonstrated multiple blood transfusions after each surgery. 2 units of packed red blood cell have been placed on hold. The surgical clearance information provided by the patient's PCP, Dr Clark, on 09/08 and if deemed necessary, other specialists, was reviewed. Any recommendations made by these care providers were taken into consideration for the patient's perioperative and postoperative treatment plans. Prolonged services time spent: 37 minutes [facility] Other 04-01-2022 History general Narrative - Reported* Type Description Date Medical History hypertension Surgical History bilateral SANDRO Surgical History abdominal surgery Surgical History RT TKR 10/2021 Hospitalization History see above [facility] Other 04-01-2022 History general Narrative - Reported* Type Description Date Medical History hypertension Surgical History bilateral SANDRO Surgical History abdominal surgery Surgical History RT TKR 10/2021 Surgical History COLONOSCOPY Hospitalization History see above [facility] Other 04-01-2022 History general Narrative - Reported* Type Description Date Medical History hypertension Medical History Frozen shoulder Medical History Lumbar pain Surgical History bilateral SANDRO Surgical History abdominal surgery Surgical History RT TKR 10/2021 Surgical History COLONOSCOPY Hospitalization History see above [facility] Other 03-24-2022 Evaluation note* Encounter Date Diagnosis Assessment Notes Treatment Notes Treatment Clinical Notes Sep, Primary osteoarthritis of both knees (ICD-10 - M17.0) Sep, Other 1. Right TKA Home Medications - DVT prophylaxis: Aspirin - NSAID: Celebrex - Disposition: Inpatient with possible inpatient rehab stay-patient's been unable to get anyone to stay with her on a consistent basis postoperatively however, she does have several family and friends that will come check on her during the postoperative period throughout the day. From a social situation standpoint, I think that she will ultimately do best with inpatient rehab stay. Joints Meeting Checklist - Pharmacy: [facility] med to bed - Approach/Technique: ZULLY - Implants: Persona primary with stem and PS femur. PRK and RHK systems available. - Anesthesia: General - Blocks: Adductor, iPACK - Preop Antibiotics: Ancef - TXA: yes-systemic - Positioning/OR Bed: supine on regular bed - Intraop X-ray: no - Boogie: no - Tourniquet: yes - Antibiotic powder: yes-2 grams of vanc - Antibiotic cement: No - Dressing: Zipline The patient has tried and failed all conservative treatment options to include: activity modification, physical therapy, oral anti-inflammatories, and intra-articular steroid injections. We will move forward with the definitive treatment option and schedule the patient for the above mentioned procedure. The risks involved with surgery and postoperative complications were discussed in relation to the patient's modifiable risk factors including but not limited to the following: BMI 34.7 All questions were answered after discussing these increased risks. The patient voiced understanding of these increased risks and still wishes to proceed with surgery. The risks involved with surgery and postoperative complications were discussed in relation to the patient's non-modifiable risk factors including but not limited to the following: Hypertension All questions were answered after discussing these increased risks. The patient voiced understanding of these increased risks and still wishes to proceed with surgery. The risks and benefits of the surgery were reviewed in depth with the patient, and all questions were answered. Informed consent was obtained. The risks and potential complications of the surgery include, but are not limited to: avascular necrosis, nonunion, nerve injury, blood vessel injury, excessive bleeding, blood transfusion, infection, persistent pain, loss of fixation, failure of the implant, deep vein thrombosis, pulmonary embolus, loss of limb, fracture, leg length discrepancy, and . Patient voiced understanding of these risks and has elected to proceed with the above surgery. [facility] Other 03-01-2022 Evaluation note* Encounter Date Diagnosis Assessment Notes Treatment Notes Treatment Clinical Notes Sep, Primary osteoarthritis of both knees (ICD-10 - M17.0) Patient complains of bilateral knee pain, right greater than left. Given her increasing pain symptoms as well failed previous conservative measures, she is encouraged to continue to follow up with Orthopedics in regard to her surgery. She continues to benefit from Tramadol 50 mg twice daily, refill provided today. Risks and side effects of this medication was discussed in detail with the patient who voiced understanding. Oaars was processed and reviewed with no discrepancies. Overall, patient is in agreement with our treatment plan. Sep, Right knee pain (ICD-10 - M25.561) Sep, Left knee pain (ICD-10 - M25.562) Sep, Other chronic pain (ICD-10 - G89.29) Sep, Other Above note writ ten by Richar Kruger LPN, Sleeping Car Service Attendant. Edited and approved by Dr. Wayne Mccallum MD. [facility] Other 03-01-2022 Evaluation note* Encounter Date Diagnosis Assessment Notes Treatment Notes Treatment Clinical Notes Sep, Primary osteoarthritis of both knees (ICD-10 - M17.0) [facility] Other 01-25-2022 Evaluation note* Encounter Date Diagnosis Assessment Notes Treatment Notes Treatment Clinical Notes Jul, Primary osteoarthritis of both knees (ICD-10 - M17.0) [facility] Other 01-13-2022 Evaluation note* Encounter Date Diagnosis Assessment Notes Treatment Notes Treatment Clinical Notes Jul, Primary osteoarthritis of both knees (ICD-10 - M17.0) Patient complains of bilateral knee pain, right greater than left. Given her increasing pain symptoms as well failed previous conservative measures, I would like her to be formally evaluated by Orthopedics for possible surgical evaluation. She shows notable pain consistent with the left knee upon exam which is supported by previous imaging. Based on these results, as well as location of pain and exam findings, patient is a candidate for a left knee steroid injection which we will proceed with today in office. Risks and benefits of procedure explained to patient; patient verbalizes understanding. Patient tolerated well. Jul, Right knee pain (ICD-10 - M25.561) Jul, Left knee pain (ICD-10 - M25.562) Jul, Other chronic pain (ICD-10 - G89.29) Given her severity of pain and plan to wait at least some time for possible surgery, we will plan on trialing Tramadol 50mg up two times daily as needed. Risks and side effects of this medication was discussed in detail with the patient who voiced understanding. Oaars was processed and reviewed with no discrepancies. Patient signed an opioid contract with us today and provided a saliva sample for toxasure screening, will await confirmatory results. Jul, Other Above note writ ten by Richar Kruger LPN, Sleeping Car Service Attendant. Edited and approved by Dr. Wayne Mccallum MD. [facility] Other 10-28-2021 Evaluation note* Encounter Date Diagnosis Assessment Notes Treatment Notes Treatment Clinical Notes Apr, Primary osteoarthritis of both knees (ICD-10 - M17.0) Patient complains of right knee pain. Patient has failed several conservative treatment options. Based on previous positive results and returning pain symptoms, patient is a candidate for a repeat right knee cortisone injections which we will proceed with in the office today. Risks and benefits of procedure explained to patient; patient verbalizes understanding. Apr, Right knee pain (ICD-10 - M25.561) Apr, Left knee pain (ICD-10 - M25.562) Apr, Other chronic pain (ICD-10 - G89.29) Apr, Other Above note writ ten by Nissa Murillo CMA, Sleeping Car Service Attendant. Edited and approved by Dr. Wayne Mccallum MD. [facility] Other Evaluation noteNo assessment information available [facility] Work Phone: Evaluation noteNo InformationNortSub[facility] [employer] Other History general Narrative - Reported* Type Description Date Medical History hypertension Surgical History bilateral SANDRO Surgical History abdominal surgery [facility] [employer] Other Family History Relationship Condition Age at Onset Recorded Date/T lucas father Heart problem Unknown Congestive heart failure Unknown Not Specified Myocardial infarction Unknown sister Non-Hodgkin's lymphoma Unknown Advance Directives Advance Directive Response Recorded Date/ Time Advance Directives No November 29, 8 12:37pm Summary Purpose Reason for Referral Reason *Waiting for appt chronic lumbar - recent MRI Diagnosis 1 Lumbar pain (M54.50) Referral Organization [facility] Referring Provider First Name Vashti Referring Provider Last Name Amber Referring Provider Specialty Family [facility] Referred Organization [facility] Referred Provider Jose Clark Referred Address [address] [place] [phone] Referred Provider Specialty Neurological Surgery Referral Priority Routine General Notes Shira Gan 12:19:28 PM >received today, referral faxed P2P Additional Source Comments REASON FOR VISIT (unrecogniz ed section and content) RECHECKRECHECKRXMEDICATION R EFILLNo InformationNo InformationH & P RIGHT TOTAL KNEE [id number] WK WOUND CHECKRecheck Right Knee6 WK RECHECKLT KNEE PAINrx requestmed refill1 YEAR, LT KNEE PAINLeft FootNo Informationfoot xrayNo Informationeasily bruisinglabsOP SP DISCUSS MEDSeasily bruisingREFILLOP SP LT KNEE PAIN WANTS INJECTIONRefillNo Informationrefilltingling/numbness in footxraylumbar MRIMed Refill Care Teams (unrecognized sec tion and content) Team Status: Inactive Member Role Status Dates Vashti Clark MD Primary Care Provider Active Jose Najera II, MD Attending Provider Active Team Status: Active Member Role Status Dates Vashti Clark MD Primary Care Provider Active Goals (unrecognized section and content) Goals may be documented in a n alternate section INFORMATION SOURCE (unrecogn ized section and content) DATE CREATED AUTHOR 11/05/2022 [facility] DATE CREATED AUTHOR AUTHOR'S ORGANIZ ATION 12/22/2022 [facility] DATE CREATED AUTHOR AUTHOR'S ORGANIZ ATION 06/20/2023 [facility] FOR RECORDS PERTAINING TO PATIENTS WHO ARE OR HAVE BEEN ENROLLED IN A CHEMICAL DEPENDENCY/SUBSTANCEABUSE PROGRAM, SOME INFORMATION MAY BE OMITTED. This clinical summary was aggregated from multiple sources. Caution should be exercised in using it in the provision of clinical care. This summary normalizes information from multiple sources, and as a consequence, information in this document may materially change the coding, format and clinical context of patient data. In addition, data may be omitted in some cases. CLINICAL DECISIONS SHOULD BE BASED ON THE PRIMARY CLINICAL RECORDS. [facility] [employer] [facility]. provides no warranty or guarantee of the accuracy or completeness of information in this document.
== END 2023-08-16 12:49 | disposition home or self-care (01) ==
LOC: US 12:49
PROVIDERS: PCP Family Medicine; Visit Provider Family Medicine
DX: R60.0 Localized edema (principal); I82.411 Acute embolism and thrombosis of right femoral vein; I82.811 Embolism and thrombosis of superficial veins of right lower extremity
CPT/HCPCS: 93971

== ENCOUNTER 2023-09-24 14:10 | Outpatient (OUT) | payer MEDICARE, SELFPAY ==
--- NOTE | 2023-09-24 15:11 | P.CN_ITS ---
Consult Note: HPI Data of Consult Patient: new to practice Consult date: 09/24/23 Requesting Physician: Marc Nowak MD Primary Care Provider: Vashti Engle MD Consult Narrative Reason for consult: low back pain Narrative: 73yof who presents for evaluation. longstanding low back pain that is worsened with standing and ambulation. imaging shows severe facet arthropathy from l4-s1. also severe stenosis at l5-s1, more moderate at other lumbar levels. has engaged in >6 weeks of provider directed home exercise program, without benefit. uses diclofenac 75mg bid prn. denies adverse med side effects. cc:: CC: Marc Nowak MD Review of Systems ROS Status of ROS 10 or more systems reviewed and unremark able except as noted in history and below Exam Narrative Exam Narrative: Psych-alert and oriented x 3. Attentive and appropriate, constitutionally no rmal, displays normal mood and affect per situation.? There are no obvious deficits in memory, reasoning, or intellect.? Skin-no obvious rashes, bruising, erythema noted to the patient's area of pain. Extremities- extremities are warm with minimal edema and palpable pulses. Lumbar-no significant tenderness to palpation noted in the lumbar spine and paraspinal musculature.? Pain is elicited with extension, and lateral rotation of the lumbar spine. Range of motion is slightly diminished with these motions due to pain. Facet loading maneuvers are positive bilaterally and do appear to be concordant with the patient's normal complaints of pain.? Coordination remains intact.? Gait remains non-antalgic. Assessment and Plan Assessment and Plan (1) Lumbar spondylosis: Plan 73yof who presents for evaluation. failed conservative measures, as noted. imaging reviewed, as noted. given symptoms and imaging, prudent to attempt bilateral l4-5, l5-s1 medial branch block under fluoroscopic guidance with intention of proceeding to radiofrequency ablation. she is in agreement. medications reviewed. will have her trial gabapentin 300mg tid. follow up after procedure.
== END 2023-09-24 14:11 | disposition home or self-care (01) ==
PROVIDERS: PCP Family Medicine; Visit Provider Anesthesiology
DX: M47.816 Spondylosis without myelopathy or radiculopathy, lumbar region (principal)
CPT/HCPCS: G0463

== ENCOUNTER 2023-10-01 10:04 | Day surgery (SDC) | payer MEDICARE, SELFPAY ==
--- OUTSIDE RECORDS SUMMARY | 2023-10-01 10:15 | XMS_ITS | CCD ---
Author Name Unknown Address [address] [place] [address] Organization [facility] Care Team Providers Care Valet Attendant Name Role Phone Wayne Mccallum Unavailable Jose Najera II Unavailable MD Vashti Clark Primary Care Provider [phone] MD Jose Najera II Attending Provider AMBER, DR VASHTI Porter Attending Unavailable AMBER, DR VASHTI Porter Primary Care Unavailable AMBER, DR VASHTI Porter Admitting Unavailable SHAN, DR TIM Veronica Consulting Unavailable AMBER, DR VASHTI Porter Consulting Unavailable Vashti Clark Unavailable ANABELLA STEWART Attending Unavailable ANABELLA STEWART Attending Unavailable Ny Jin Unavailable Willy Yancey Admitting UnavailWilly Etienne Attending UnavailVashti Ricks Primary Care Unavailable Jose Najera II Admitting UnavailJose Avendano II Attending UnavailVashti Ricks Primary Care Unavailable She MUJICA, Marc Tavares Attending Unavailable Allergies Allergy Classification Reported Allergen(s) Allergy Type Date of Onset Reaction(s) Facility (6 sources) patient allergy list reviewed by nurse or physicia Propensity to adverse reactions 5 Comment:Done [facility] Other (6 sources) Allergies Reconciled Propensity to adverse reactions Unknown [facility] Other Medications Current Medications Medication Drug Class(es) Dates Sig (Normalized) Sig (Original) acetaminophen 500 mg oral tablet (7 sources) Start: 10-31-2021 take 500 mg by [...] mg / clavulanate 125 mg oral tablet (10 sources) Penicillin-class Antibacterial take 1 tablet by mouth every twelve hours Amoxicillin-Pot Clavulanate 875-125 MG 1 tablet Orally every 12 hrs for 7 days Active apixaban 5 mg oral tablet (5 sources) Factor Xa Inhibitor Start: 08-30-19 take 1 tablet by mouth twice daily Apixaban (Eliquis) 5 mg tablet Active 5 MG PO Twice daily 60 August 30, 2023 11:14am Start: 08-30-2023 End: 08-30-2023 take 1 tablet by mouth twice daily Apixaban (Eliquis) 5 mg tablet Discontinued 5 MG PO Twice daily August 30, 2023 12:00am August 30, 2023 11:15am take 1 tablet by therese th every twelve hours Eliquis 5 MG 1 tablet Orally Twice a day Active ascorbic acid 500 mg oral tablet (4 sources) Vitamin C Start: 10-25-2021 End: 10-31-2021 take 1 tablet by mouth twice daily at mealtime Ascorbic Acid (Vitamin C) (Vitamin C) 500 mg Tablet Active 500 MG PO Twice daily with meals 60 October 30, 2021 11:00pm aspirin 81 mg delayed release oral tablet (7 sources) Platelet Aggregation Inhibitor, Nonsteroidal Anti-inflammatory Drug Start: 10-25-2021 End: 10-31-2021 take 81 mg by mouth twice daily Aspirin Active 81 MG PO Twice daily 40 October 30, 2021 11:00pm Start: 10-06-2021 take 1 tablet by therese th twice daily Aspirin 81 MG 1 tablet Orally BID for 35 days MED TO BED UPON DISCHARGE DOS:10/24/2021 Sep, Active Calcium Carbonate-Vitamin D3 (Oyster Shell Calcium-Vit D3) 500 mg-5 mcg (200 unit) Tablet (4 sources) Start: 10-31-2021 take 1 tablet by mouth twice daily Calcium Carbonate-Vitamin D3 (Oyster Shell Calcium-Vit D3) 500 mg-5 mcg (200 unit) Tablet Active 1 TAB PO Twice daily 30 October 30, 2021 11:00pm Start: 10-25-2021 End: 10-31-2021 take 1 tablet by mouth twice daily Calcium Carbonate-Vitamin D3 (Oyster Shell Calcium-Vit D3) 500 mg-5 mcg (200 unit) Tablet Discontinued 1 TAB PO Twice daily October 24, 2021 11:00pm October 31, 2021 1:03pm diclofenac sodium 75 mg delayed release oral tablet (20 sources) Nonsteroidal Anti-inflammatory Drug Start: 08-29-2023 take 1 tablet by mouth twice daily as needed Diclofenac Sodium Active 75 MG PO Twice daily August 29, 2023 12:00am FreeTextSi tablet as needed Orally Twice a day; Note: Source Status: Taking; Refills: 2; Qty: 180 Tablet; Provider: Amber Porter Start: 02-08-2023 Voltaren 1 % a pply [...] 1:10pm docusate sodium 50 mg / sennosides, chcf 8.6 mg oral tablet (3 sources) Start: 10-06-2021 take 2 tablets by mouth every twenty-four hours Senokot S 8.6-50 MG 2 tablets Orally Once a day for 30 day(s) MED TO BED UPON DISCHARGE DOS:10/24/2021 Sep, Active famotidine 20 mg oral tablet (4 sources) Histamine-2 Receptor Antagonist Start: 10-10-2021 End: 10-31-2021 take 20 mg by mouth once daily Famotidine Active 20 MG PO Daily October 30, 2021 11:00pm hyoscyamine sulfate 0.125 mg disintegrating oral tablet (4 sources) Start: 10-31-2021 take 1 tablet by mouth four times daily Hyoscyamine Sulfate (Anaspaz) 0.125 mg Tablet,Disintegrat ing Active 0.125 MG PO Four times daily October 30, 2021 11:00pm Start: 10-10-2021 End: 10-31-2021 take 0.125 mg by mouth four times daily Hyoscyamine Sulfate Discontinued 0.125 MG PO Four times daily October 09, 2021 11:00pm October 31, 2021 1:03pm melatonin 5 mg oral tablet (2 sources) Start: 10-31-2021 take 5 mg by mouth once daily at bedtime Melatonin Active 5 MG PO Daily at bedtime October 30, 2021 11:00pm 24 hr metoprolol succinate 100 mg extended release oral tablet (20 sources) beta-Adrenergic Alex Start: 08-29-2023 take 1 tablet by mouth once daily Metoprolol Succinate Active 100 MG PO Daily August 29, 2023 12:00am FreeTextSi tablet Orally Once a day; Note: Source Status: Taking; Refills: 3; Qty: 90 Tablet; Provider: Amber Porter Start: 10-31-2021 take 1 tablet by therese th every twelve hours Metoprolol Tartrate 100 MG 1 tablet with food Orally Twice a day for 30 days Feb, Active Start: 10-10-2021 End: 10-31-2021 take 100 mg [...] Active oxyCODONE hydrochloride 5 mg oral tablet (6 sources) Opioid Agonist Start: 10-31-2021 take 5 mg by mouth four times daily Oxycodone Active 5 MG PO Four times daily 20 5 October 31, 2021 Start: 10-25-2021 End: 10-31-2021 [...] oral tablet (20 sources) Histamine-2 Receptor Antagonist Start: 08-29-2023 take 150 mg by mouth once daily at bedtime Ranitidine Hcl Active 150 MG PO Daily at bedtime August 29, 2023 12:00am take 1 tablet by therese th once daily at bedtime Zantac 150 MG 1 tablet at bedtime Orally Once a day prn Active verapamil hydrochloride 180 mg extended release oral tablet (20 sources) Calcium Channel Alex Start: 08-29-2023 take 1 tablet by mouth once daily Verapamil Active 180 MG PO Daily August 29, 2023 12:00am FreeTextSig: Take 1 tablet by mouth once daily; Note: Source Status: Taking; Refills: 1; Qty: 90 Tablet; Provider: Amber Porter Start: 10-10-2021 End: 10-31-2021 take 180 mg by mouth once daily in the morning Verapamil Active 180 MG PO Every morning October 30, 2021 11:00pm Completed/Discontinued Medications Medication Drug Class(es) Dates Sig (Normalized) Sig (Original) cefadroxil 500 mg oral capsule (5 sources) Cephalosporin Antibacterial Start: 10-25-2021 End: 10-31-2021 take 500 mg by mouth twice daily Cefadroxil Discontinued 500 MG PO Twice daily October 24, 2021 11:00pm October 31, 2021 1:03pm Start: 10-06-2021 take 1 capsule by mo [facility] every twelve hours Cefadroxil 500 MG 1 tablet Orally every 12 hrs for 7 days MED TO BED UPON DISCHARGE DOS:10/24/2021 Sep, Active celecoxib 200 mg oral capsule (7 sources) Nonsteroidal Anti-inflammatory Drug Start: 10-06-2021 End: 10-31-2021 take 200 mg by mouth twice daily Celecoxib Discontinued 200 MG PO Twice daily October 24, 2021 11:00pm October 31, 2021 1:03pm hyaluronate (20 sources) Start: 03-19-2018 Supartz Mar, Start: 03-05-2018 Supartz Feb Start: 02-26-2018 Supartz Feb Start: 02-19-2018 Supartz Feb polyethylene glycol 3350 73065 mg powder for oral solution (5 sources) Osmotic Laxative Start: 10-06-2021 End: 10-31-2021 Polyethylene Glycol 3350 (Miralax) 17 gram Powder In Packet Discontinued 17 GM PO Daily October 24, 2021 11:00pm October 31, 2021 1:03pm Theraputic Injection (20 sources) Start: 03-12-2018 Theraputic Injection Feb, traMADol hydrochloride 50 mg oral tablet (20 sources) Opioid Agonist Start: 10-25-2021 End: 10-31-2021 [...] Translations: [Generalized abdominal pain] Episodic Administrative/social admission (2 sources) Other reduced mobility; Translations: [Impaired mobility and [...] knee] Onset: 05-12-2021 Resolved: 03-06-2022 Chronic Other acquired deformities (3 sources) Lumbar spondylolisthesis; Translations: [Spondylolisthesis, lumbar region] Episodic Other acquired deformities (1 source) Spondylolisthesis, lumbar region Episodic Other aftercare (20 sources) Patient encounter status; [...] Onset: 12-12-2022 Episodic Other connective tissue disease (20 sources) Adhesive capsulitis of shoulder; Translations: [Adhesive capsulitis of unspecified shoulder] Episodic Other connective tissue disease (1 source) Adhesive capsulitis of unspecified shoulder; Translations: [Frozen shoulder] Episodic Other diseases of veins and lymphatics (3 sources) Lymphedema of bilateral lower limbs; Translations: [Lymphedema, not elsewhere classified] Chronic Other gastrointestinal disorders (2 sources) Irritable bowel syndrome; Translations: [Irritable bowel syndrome [...] Resolved: 03-06-2022 Chronic Other nervous system disorders (10 sources) Polyneuropathy; Translations: [Polyneuropathy, unspecified] Chronic Other nervous system disorders (2 sources) Polyneuropathy, unspecified Chronic Other nervous system disorders (2 sources) Postoperative pain ; Translations: [Other acute postprocedural [...] mass index 37.0-37.9, adult] Onset: 08-31-2017 Chronic Peripheral and visceral atherosclerosis (5 sources) Peripheral vascular disease; Translations: [Peripheral vascular disease, unspecified] Onset: 09-13-2023 Chronic Phlebitis; thrombophlebitis and thromboembolism (2 sources) Deep venous thrombosis of lower extremity; Translations: [Acute embolism and thrombosis of right femoral vein] 08-30-2023 Episodic Residual codes; unclassified (2 sources) Patient encounter status; Translations: [Encounter for prophylactic measures, unspecified] 10-26-2021 Episodic Residual codes; unclassified (3 sources) Edema of lower extremity; Translations: [Localized edema] Episodic Residual codes; unclassified (2 sources) Localized edema Episodic Skin and subcutaneous tissue infections (1 source) Cellulitis of left toe Episodic Spondylosis; intervertebral disc disorders; other back problems (15 sources) Lumbar spondylosis with myelopathy; Translations: [Other spondylosis with myelopathy, lumbar region] Onset: 11-11-2014 Chronic Spondylosis; intervertebral disc disorders; other back problems (20 sources) Low back pain; Translations: [Lumbar pain] Episodic Unclassified (1 source) Presence of right artificial knee joint; Translations: [Presence of right artificial knee joint] Onset: 11-02-2022 Past or Other Problems Problem Classification Problem [...] Name Value Interpretation Reference Range Facil ity US ankle/arm indiceson US ankle/arm indices [facility] [place] [address] Ultrasound Report Signed Patient: Kami Fink MR#: [id number] [birth year] : 1950 Acct:[id number] Age/Sex: 73 / F ADM Date: 09/13/23 Loc: [facility] Room: Type: [facility] Attending Dr: Willy Yancey MD Ordering Provider: Willy Yancey MD Date of Service: 09/13/23 US/US ankle/arm indices: I73.9 - Peripheral vascular disease, unspecified Copies to: Willy Yancey MD LOWER EXTREMITY SEGMENTAL ARTERIAL DOPSCAN (PVR) INDICATION: Swelling and numbness to the left foot. PROCEDURE: Right arm blood pressure is 151 , left is 180 . Pressures of the right leg are CNO at the ankle using the posterior tibial artery and CNO at the ankle using the dorsalis pedis artery with ankle-brachial index of -NC- -NC- . Pressures of the left leg are CNO at the ankle using the posterior tibial artery and CNO at the ankle using the dorsalis pedis artery with ankle-brachial index of -NC- -NC- . Wave forms by plethysmography are biphasic, bilaterally. US/US ankle/arm indices IMPRESSION: MODERATE PERIPHERAL ARTERIAL DISEASE OF THE bilateral LOWER EXTREMITY AT REST. This patient has evidence of extensive calcified disease, bilaterally. Therefore the ELVIN is not reliable. Impression dictated by: Willy Yancey MD09/13/2023 2:37 PM Dictation Location: [place] [address] Tech: Marquita Carlos Transcribed By: DALILA 09/13/23 1437 Dictated By: Willy Yancey MD 09/13/23 1435 Signed By: 09/13/23 1437 Normal [facility] XR knee RT 2Von 11-02-2022 XR knee RT 2V [facility] [place] [address] [place] [address] XRay Report Signed Patient: Kami Fink MR#: [id number] [birth year] : 1950 Acct:[id number] Age/Sex: 72 / F ADM Date: 11/02/22 Loc: [facility] Room: Type: [facility] Attending Dr: Jose Najera II, MD Copies [...] Mondragon Jr., D.OEdgard11/02/2022 3:18 PM Dictation Location: [id number] Transcribed By: PWS 11/02/22 1518 Dictated By: Audie Mondragon Jr, DO 11/02/22 151 Signed By: 11/02/22 151 Normal [facility] XR knee RT 2V [facility] [employer] Other XR knee RT 2V [facility] [place] [facility] [employer] Other XR knee RT 2V [address] [place] [address] [employer] Other [place]R [place] [address] [facility] [employer] Other XR knee RT 2V XRay Report [facility] PivotDesk Other XR knee RT 2V Signed stylemarks Other XR knee RT 2V Patient: Krystle Fink MR#: [id number] [facility] [employer] Other XR knee RT 2V 31 [facility]marks Other XR knee RT 2V : 1950 Acct:[id number] stylemarks Other XR knee RT 2V Age/Sex: 72 / F ADM Date: 11/02/22 [facility] Other XR knee RT 2V Loc: [facility] Room: Type : [facility] stylemarks Other XR knee RT 2V Attending Dr: Jose Najera II, MD [facility] Other XR knee RT 2V Copies to: Jose Najera MD [facility] Other XR knee RT 2V Ordering Provider: Jose Najera MD [facility] Other XR knee RT 2V Date of Service: 11/02/22 [facility] Other XR knee RT 2V XR/XR knee RT 2V: History of total right knee replacement [facility] Other XR knee RT 2V RIGHT KNEE - 2 views N [place] Other XR knee RT 2V CLINICAL HISTORY: Follow-up right TKA [facility]marks Other XR knee RT 2V COMPARISON: Right knee 01/18/2022 [facility]marks Other XR knee RT 2V FINDINGS: stylemarks Other XR knee RT 2V No evidence of hardware complication or acute bony process. [facility]marks Other XR knee RT 2V XR/XR knee RT 2V [facility]marks Other XR knee RT 2V IMPRESSION: [place] Other XR knee RT 2V NO EVIDENCE OF HARDWARE COMPLICATION. stylemarks Other XR knee RT 2V Impression dictated by: Audie Mondragon Jr., D.O.11/02/2022 3:18 PM [facility] Other XR knee RT 2V Dictation Location: [place] [address] stylemarks Other XR knee RT 2V Transcribed By: PWS 11/02/22 [facility] stylemarks Other XR knee RT 2V Dictated By: Audie Mondragon Jr DO 11/02/22 [facility] stylemarks Other XR knee RT 2V Signed By: stylemarks Other XR knee RT 2V 11/02/22 [facility] [employer] Other Vital Signs Date Time Vital Sign Value Performing Clinician Facility 08-30-2023 10:41-0500 Body height 161.29 cm [facility] 08-30-2023 10:41-0500 Body mass index (BMI) [Ratio] 37.8 kg/m2 [facility] 08-30-2023 10:41-0500 Body weight 98.42 kg [facility] 08-30-2023 10:41-0500 Diastolic blood pressure 81 mm[Hg] [facility] 08-30-2023 10:41-0500 Heart rate 87 /min [facility] 08-30-2023 10:41-0500 Systolic blood pressure 155 mm[Hg] [facility] 08-23-2023 09:20-0500 Body height 161.29 cm [facility] Other [facility] Other 08-23-2023 09:20-0500 Body mass index (BMI) [Ratio] 37.48 kg/m2 [facility] Other [facility] Other 08-23-2023 09:20-0500 Body weight 97.52 kg [facility] Other [facility] Other 08-16-2023 10:00-0500 Body height 161.29 cm Vashti Clark Other [facility] 08-16-2023 10:00-0500 Body mass index (BMI) [Ratio] 37.83 kg/m2 Vashti Clark Other [facility] Other 08-16-2023 10:00-0500 Body weight 98.43 kg Vashti Clark Other [facility] Other 08-16-2023 10:00-0500 Body weight 98.42 kg [facility] 08-16-2023 10:00-0500 Diastolic blood pressure 81 mm[Hg] Vashti Clark Other [facility] 08-16-2023 10:00-0500 Systolic blood pressure 147 mm[Hg] Vashti Clark Other [facility] 05-29-2023 11:30-0500 Body height 161.29 cm Vashti Clark Other [facility] Other 05-29-2023 11:30-0500 Body mass index (BMI) [Ratio] 37.41 kg/m2 Vashti Clark Other [facility] Other 05-29-2023 11:30-0500 Body weight 97.34 kg Vashti Clark Other [facility] Other 05-29-2023 11:30-0500 Diastolic blood pressure 85 mm[Hg] Vashti Clark Other [facility] Other 05-29-2023 11:30-0500 Respiratory rate 16 /min Vashti Clark Other [facility] Other 05-29-2023 11:30-0500 Systolic blood pressure 174 mm[Hg] Vashti Clark Other [facility] Other 03-15-2023 08:45-0400 Body height 161.29 cm Jose Dillon II Other [facility] Other 03-15-2023 08:45-0400 Body mass index (BMI) [Ratio] 38.01 kg/m2 Jose Dillon II Other [facility] Other 03-15-2023 08:45-0400 Body weight 98.88 kg Jose Reinaldo II Other [facility] Other 01-18-2023 11:15-0400 Body height 161.29 cm Vashti Clark Other [facility] Other 01-18-2023 11:15-0400 Body mass index (BMI) [Ratio] 38.01 kg/m2 Vashti Clark Other [facility] Other 01-18-2023 11:15-0400 Body weight 98.88 kg Vashti Clark Other [facility] Other 01-18-2023 11:15-0400 Diastolic blood pressure 81 mm[Hg] Vashti Clark Other [facility] Other 01-18-2023 11:15-0400 Systolic blood pressure 167 mm[Hg] Vashti Clark Other [facility] Other 12-12-2022 13:45-0400 Body height 161.29 cm Vashti Clark Other [facility] Other 12-12-2022 13:45-0400 Body mass index (BMI) [Ratio] 37.48 kg/m2 Vashti Clark Other [facility] Other 12-12-2022 13:45-0400 Body weight 97.52 kg Vashti Clark Other [facility] Other 12-12-2022 13:45-0400 Diastolic blood pressure 59 mm[Hg] Vashti Clark Other [facility] Other 12-12-2022 13:45-0400 Systolic blood pressure 147 mm[Hg] Vashti Clark Other [facility] Other 11-02-2022 15:45-0400 Body height 167.64 cm Jose Dillon II Other [facility] Other 12-07-2021 11:45-0400 Body height 167.64 cm Jose Reinaldo II Other [facility] Other 12-07-2021 11:45-0400 Body mass index (BMI) [Ratio] 34.7 kg/m2 Jose Dillon II Other [facility] Other 12-07-2021 11:45-0400 Body weight 97.52 kg Jose Dillon II Other [facility] Other 11-16-2021 11:45-0400 Body height 167.64 cm Jose Reinaldo II Other [facility] Other 11-16-2021 11:45-0400 Body mass index (BMI) [Ratio] 34.7 kg/m2 Jose Reinaldo II Other [facility] Other 11-16-2021 11:45-0400 Body weight 97.52 kg Jose Reinaldo II Other [facility] Other 10-06-2021 16:00-0400 Body height 167.64 cm Jose Dillon II Other [facility] Other 10-06-2021 16:00-0400 Body mass index (BMI) [Ratio] 34.7 kg/m2 Jose Reinaldo II Other [facility] Other 10-06-2021 16:00-0400 Body weight 97.52 kg Jose Reinaldo II Other [facility] Other 09-13-2021 16:15-0500 Body height 167.64 cm Wayne Mccallum Other [facility] Other 09-13-2021 16:15-0500 Body mass index (BMI) [Ratio] 34.7 kg/m2 Wayne Felter Other [facility] Other 09-13-2021 16:15-0500 Body weight 97.52 kg Wayne Felter Other [facility] Other Encounters Encounter Date Encounter Type Care Provider Facility Start: 09-24-2023 End: 09-25-2023 ambulatory Marc Nowak MD Facility:[facility] Start: 09-13-2023 End: 09-13-2023 ambulatory Willysiva Yancey Facility:[facility] Start: 08-30-2023 End: 08-30-2023 ambulatory [facility] Work Phone: Start: 08-30-2023 End: 08-30-2023 Patient encounter procedure [facility] Work Phone: Start: 08-27-2023 End: 08-27-2023 ambulatory Ny Jin Other [facility] Other Start: 08-27-2023 Telephone encounter Ny Jin [facility] Start: 08-23-2023 End: 08-23-2023 ambulatory Ny Jin Other [facility] Other Start: 08-23-2023 Office outpatient ne w 45 minutes Ny Jin [facility] Start: 08-16-2023 End: 08-16-2023 ambulatory Vashti Clark Other [facility] Other Start: 08-16-2023 Office outpatient vi sit 15 minutes Vashti Clark [facility] Start: 08-16-2023 Telephone encounter Vashti Clark [facility] Start: 08-16-2023 End: 08-16-2023 Patient encounter procedure [facility]- Start: 08-13-2023 End: 08-13-2023 ambulatory Jose Najera II Other [facility] Other Start: 08-13-2023 Telephone encounter oJse Najera II [facility] Start: 07-03-2023 End: 07-03-2023 ambulatory Vashti Clark Other [facility] Other Start: 07-03-2023 Telephone encounter Vashti Amber [facility] Start: 06-27-2023 Patient encounter procedure [facility]- Start: 06-18-2023 End: 06-18-2023 ambulatory ANABELLA Khan DOLCE Not Available Start: 06-11-2023 End: 06-11-2023 ambulatory Vashti Clark Other [facility] Other Start: 06-11-2023 Telephone encounter Vashti Clark [facility] Start: 06-01-2023 End: 06-01-2023 ambulatory ANABELLA Khan DOLCE Not Available Start: 05-29-2023 End: 05-29-2023 ambulatory Vashti Amber Other [facility] Other Start: 05-29-2023 Office outpatient vi sit 15 minutes Vashti Amber [facility] Start: 05-29-2023 Telephone encounter Vashti Amber [facility] Start: 05-14-2023 End: 05-14-2023 ambulatory Jose Najera II Other [facility] Other Start: 05-14-2023 Telephone encounter Jose Najera II [facility] Start: 04-02-2023 End: 04-02-2023 ambulatory Vashti Clark Other [facility] Other Start: 04-02-2023 Telephone encounter Vashti Clark [facility] Start: 03-15-2023 End: 03-15-2023 ambulatory Jose Najera II Other [facility] Other Start: 03-15-2023 Office outpatient vi sit 25 minutes Jose Dillon II [facility] Start: 02-26-2023 End: 02-26-2023 ambulatory Vashti Clark Other [facility] Other Start: 02-26-2023 Telephone encounter Vashti Amber [facility] Start: 02-08-2023 End: 02-08-2023 ambulatory Jose Reinaldo II Other [facility] Other Start: 02-08-2023 Office outpatient vi sit 25 minutes Jose Dillon II [facility] Start: 01-19-2023 End: 01-19-2023 ambulatory Vashti Clark Other [facility] Other Start: 01-19-2023 Telephone encounter Vashti Clark [facility] Start: 01-18-2023 End: 01-18-2023 ambulatory Vashti Clark Other [facility] Other Start: 01-18-2023 Office outpatient vi sit 15 minutes Vashti Clark [facility] Start: 01-17-2023 End: 01-17-2023 ambulatory Jose Najera II Other [facility] Other Start: 01-17-2023 Telephone encounter Jose Dillon II [facility] Start: 12-13-2022 End: 12-13-2022 ambulatory Vashti Clark Other [facility] Other Start: 12-13-2022 Telephone encounter Jose Dillon II [facility] Start: 12-12-2022 End: 12-13-[address] VASHTI CLARK Facility: Start: 12-12-2022 Office outpatient vi sit 15 minutes Vashti Clark [facility] Start: 11-02-2022 End: 11-02-2022 ambulatory Jose M Dillon II [facility] Other Start: 11-02-2022 Office outpatient vi sit 25 minutes Jose Reinaldo II [facility] Start: 10-10-2022 End: 10-10-2022 ambulatory Jose Reinaldo II Other [facility] Other Start: 10-10-2022 Telephone encounter Jose Reinaldo II [facility] Start: 06-23-2022 End: 06-23-2022 ambulatory MD Vashti Clark Work Phone: [facility] Work Phone: Start: 06-23-2022 End: 06-23-2022 Patient encounter procedure MD Vashti Clark Work Phone: [facility] Start: 04-13-2022 End: 04-13-2022 ambulatory Jose Dillon II Other [facility] Other Start: 04-13-2022 Telephone encounter Jose Dillon II [facility] Start: 03-06-2022 End: 03-06-2022 ambulatory Wayne Mccallum Other [facility] Other Start: 03-06-2022 Office outpatient vi sit 15 minutes Wayne Mccallum [facility] [place] [facility] Start: 01-18-2022 (Post-Op) Post-Op Jose Reinaldo II [facility] Start: 01-18-2022 End: 01-18-2022 ambulatory Jose Dillon II Other [facility] Other Start: 12-07-2021 (Post-Op) Post-Op Jose Reinaldo II [facility] Start: 12-07-2021 End: 12-07-2021 ambulatory Jose Reinaldo II Other [facility] Other Start: 11-21-2021 Pre-procedure evaluation check Jose Dillon II Other [facility] Other Start: 11-16-2021 End: 11-16-2021 ambulatory Jose Dillon II Other stylemarks Other Start: 11-16-2021 Office outpatient vi sit 15 minutes Jose Dillon II [facility] Start: 10-14-2021 (Prolonged) Prolonge d Services Jose Dillon II [facility] Start: 10-14-2021 End: 10-14-2021 ambulatory Jose Najera II Other [facility] Other Start: 10-06-2021 End: 10-06-2021 ambulatory Jose Najera II Other [facility] Other Start: 10-06-2021 Office outpatient vi sit 25 minutes Jose Najera II [facility] Start: 09-13-2021 End: 09-13-2021 ambulatory Jose Najera II Other [facility] Other Start: 09-13-2021 Office outpatient vi sit 25 minutes Wayne Mccallum [facility] Start: 09-13-2021 Telephone encounter Jose Najera II [facility] Start: 08-09-2021 End: 08-09-2021 ambulatory Wayne Mccallum Other [facility] Other Start: 08-09-2021 Telephone encounter Wayne Mccallum [facility] Start: 07-28-2021 End: 07-28-2021 ambulatory Wayne Mccallum Other [facility] Other Start: 07-28-2021 Office outpatient vi sit 15 minutes Wayne Felter [facility] Start: 06-27-2021 Adult health examination Jose Najera II Other [facility] Other Start: 05-12-2021 Office outpatient vi sit 15 minutes Wayne Payneer [facility] Procedures Date Procedure Procedure Detail Performing Clinician Start: 06-23-2022 Radiologic examinati on of knee MD Vashti Clark Work Phone: Start: 12-27-2017 Screening for malign ant neoplasm of colon Jose Najera II Other Start: 11-25-2015 General examination of patient Jose Najera II Other Start: 11-25-2015 Screening mammography R anthonykim De Andaismarlon WAGNER Other Screening for malign ant neoplasm of breast Jose De Andaclaire WAGNER Other Immunizations Immunization Date Immunization Notes Care Provider Vincenzo sandoval 05-29-2023 influenza virus vaccine, unspecified formulation [facility] 05-29-2023 influenza, high dose seasonal, preservative-free Vashti Clark Other [facility] Other 04-11-2021 COVID-19 mRNA, Comirnaty (Pfizer) MD Vashti Clark Work Phone: [facility] 09-07-2020 COVID-19 mRNA, Comirnatwinter (Pfizer) MD Vashti Clark Work Phone: [facility] 08-17-2020 COVID-19 mRNA, Comirnaty (Pfizer) MD Vashti Clark Work Phone: [facility] 05-24-2020 Kenalog -40 mg Wayne Mccallum Other [facility] Other 03-31-2020 influenza virus vaccine, split virus (incl. purified surface antigen) Jose Peñamarlon WAGNER Other [facility] Other 03-31-2020 influenza virus vaccine, unspecified formulation [facility] 08-11-2019 Kenalog -40 mg Wayne Mccallum Other [facility] Other 11-04-2018 Kenalog -40 mg Wayne Mccallum Other [facility] Other 03-19-2018 Daya Mccallum Other [facility] Other 03-12-2018 Theraputic Injection Wayne Mccallum Other [facility] Other 03-05-2018 Daya Mccallum Other [facility] Other 02-26-2018 Daya Mccallum Other [facility] Other 02-19-2018 Daya Mccallum Other [facility] Other 11-27-2017 Kenalog -40 mg Wayne Mccallum Other [facility] Other 05-31-2016 influenza virus vaccine, split virus (incl. purified surface antigen) Jose Dillon II Other [facility] Other 05-31-2016 influenza virus vaccine, unspecified formulation [facility] 05-31-2016 pneumococcal polysaccharide vaccine, 23 valent Jose Dillon II Other [facility] Payers Date Payer Category Payer Medicare 2023 Unknown 2022 Self-pay [id number] 1961 Medicare [id number] 2.1 [id number] 1961 Unknown [id number] 2.1 [id number] 1948 Unknown [id number] 2.16.84 [id number] 1950 Unknown [id number] 1948 Unknown [id number] 1948 Unknown [id number] 2.16. [id number] Unknown Karen YOO/BS [id number] Unknown [id number] 2.16.8 [id number] Unknown [id number] 2.16.8 [id number] Social History Date Type Detail Facility Unknown if ever smoked [facility] Other Sex Assigned At Sex Assigned At Bir th [facility] Other Start: 10-26-2021 Tobacco smoking status NHIS Never smoked tobacco (finding) [facility] Start: 1950 Sex Assigned At Female F [facility] Medical Equipment Procedure Code Equipment Code Equipment Origin al Text Equipment Identifier Dates Arthroplasty, knee, total, minimally invasive Orthopaedic cement, non-medicated [id number] FDA Start: 10-24-2021 Arthroplasty, knee, total, minimally invasive Uncoated knee femur prosthesis, metallic ()[id number] FDA Start: 10-24-2021 Arthroplasty, knee, total, minimally invasive Tibial insert ()[id number] FDA Start: 10-24-2021 Arthroplasty, knee, total, minimally invasive Polyethylene patella prosthesis [id number] FDA Start: 10-24-2021 Arthroplasty, knee, total, minimally invasive Knee stem ()[id number] FDA Start: 10-24-2021 Arthroplasty, knee, total, minimally invasive Uncoated knee tibia prosthesis, metallic [id number] FDA Start: 10-24-2021 Clinical Notes 05-12-2021 to 08-23-2023 Note Date & Type Note Facility 08-23-2023 Evaluation note Encounter Date Diagnosis Assessment Notes Aug, Spondylolisthesi s, 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 Patient complains of no claudicatory or radicular symptoms. She does have low back pain and sacroiliac pain when standing more than 5 minutes. She has a recent DVT in her right calf that is being treated with Eliquis. Her major concern today is the numbness in her left foot, reviewing her EMG showing severe polyneuropathy. There are no surgical indications for this patient at this time. I do recommend the patient see vascular for further workup, I will send a referral. Patient also could benefit from pain management for her back pain and sacroiliac, I will send referral to Dr. Mccallum. She should continue follow-up with her primary care. I will see her in 6 months for follow-up. Aug, Peripheral vascular insufficiency (ICD-10 - I73.9) Aug, Peripheral polyneuropathy (ICD-10 - G62.9) Aug, Lumbar stenosis without neurogenic claudication (ICD-10 - M48.061) Aug, Lower extremity edema (ICD-10 - R60.0) [facility] Other 02-01-2024 Evaluation note* Encounter Date Diagnosis Assessment Notes Treatment Notes Treatment Clinical Notes Aug, Leg edema, right (ICD-10 - R60.0) Check US today, discussed other possibilities but r/o DVT first. [facility] Other 12-19-2023 Evaluation note* Encounter Date Diagnosis Assessment Notes Treatment Notes Treatment Clinical Notes Jun, Lumbar pain (ICD-10 - M54.50) [facility] Other 11-27-2023 Evaluation note* Encounter Date Diagnosis Assessment Notes Treatment Notes Treatment Clinical Notes May, DDD (degenerative disc disease), lumbar (ICD-10 - M51.36) [facility] Other 11-14-2023 Evaluation note* Encounter Date Diagnosis Assessment Notes Treatment Notes Treatment Clinical Notes May, Peripheral polyneuropathy (ICD-10 - G62.9) Requests labs to r/o metabolic causes. May, Lumbar pain (ICD-10 - M54.50) Chronic lumbar pain. Agrees to start w xray. May, Paronychia, toe, lef t (ICD-10 - L03.032) Pt requests antibiotic at end of visit. Keep foot clean and dry. [facility] Other 08-31-2023 Evaluation note* Encounter Date Diagnosis [...] wedding planned the end of August 2023. [facility] Other 07-27-2023 Evaluation note* Encounter Date Diagnosis [...] it is not something that I prescribed. [facility] Other 07-06-2023 Evaluation note* Encounter Date Diagnosis Assessment Notes Treatment Notes Treatment Clinical Notes Jan, Easy bruisability (ICD-10 - R23.3) Pt will get labs today. Discussed possible link w the frequent NSAIDs Jan, Essential (primary) hypertension (ICD-10 - I10) Due for labs. Possible elevated glucose - nonfasting, had steroid pills and injections due to foot issues. She is seeing podiatry for plantar fasciitis. [facility] Other 07-06-2023 Evaluation note* Encounter Date Diagnosis [...] symptoms. Any developing patterns. Stay well hydrated. [facility] Other 05-31-2023 NotePROCEDURE: XR FOOT LT MIN [...] Electronically authenticated by: TIM TORREZ Date: 2022-12-13 08:39[facility]05-30-2023 Evaluation note* Encounter Date Diagnosis Assessment Notes Treatment Notes Treatment Clinical Notes November, Left foot pain (ICD-10 - M79.672) Discussed primary concern of stress fracture. Pt agrees to xray. Reviewed ortho notes. She is to followup there prn. [facility] Other 2023 Evaluation note* Encounter Date Diagnosis Assessment Notes Treatment Notes Treatment Clinical Notes Oct, History of total right knee replacement (ICD-10 - Z96.651) Oct, Primary osteoarthritis of both knees (ICD-10 - M17.0) Oct, Other [facility] TKA at [facility] on 10/24/2021 Happy with surgical result Follow [...] as needed basis for the left knee. [facility] Other 09-29-2022 Evaluation note* Encounter Date Diagnosis Assessment Notes Treatment Notes Treatment Clinical Notes Mar, Primary osteoarthritis of both knees (ICD-10 - M17.0) [facility] Other 08-22-2022 Evaluation note* Encounter Date Diagnosis [...] note writ ten by Richar Kruger LPN, Cardiovascular Sonographer. Edited and approved by Dr. Wayne Mccallum MD. [facility] Other 07-06-2022 Evaluation note* Encounter Date Diagnosis Assessment Notes Treatment Notes Treatment Clinical Notes Jan, Primary osteoarthritis of both knees (ICD-10 - M17.0) Jan, Aftercare following joint replacement surgery (ICD-10 - Z47.1) Jan, History of total right knee replacement (ICD-10 - Z96.651) Jan, Other [facility] TKA at [facility] on 10/24/2021 Doing well Discussed post-op dental prophylaxis. Shared decision made to continue prophylactic antibiotics indefinitely. Follow-up at 1 year post-op for repeat examination and 2 view x-rays of the right knee. Patient instructed to call with any questions or concerns. [facility] Other 05-25-2022 Evaluation note* Encounter Date Diagnosis Assessment Notes Treatment Notes Treatment Clinical Notes November, Primary osteoarthritis of both knees (ICD-10 - M17.0) November, Aftercare following joint replacement surgery (ICD-10 - Z47.1) November, History of total right knee replacement (ICD-10 - Z96.651) November, Other [facility] TKA at [facility] on 10/24/2021 Doing well Patient may continue activities as tolerated. Continue PT as recommended. Continue taking nopg-tes-ksaroca anti-inflammatori es as needed for assistance with swelling and pain associated with the operative extremity. Follow-up in 6 weeks for repeat examination and long standing x-rays. [facility] Other 05-04-2022 Evaluation note* Encounter Date Diagnosis [...] for 3 views of the right knee. [facility] Other 04-01-2022 Evaluation note* Encounter Date Diagnosis [...] patient could proceed with surgery safely. The sous chef kitchen manager was vital for surgery timing and [...] plans. Prolonged services time spent: 37 minutes [facility] Other 04-01-2022 History general Narrative - Reported* Type Description Date Medical History hypertension Surgical History bilateral SANDRO Surgical History abdominal surgery Surgical History RT TKR 10/2021 Hospitalization History see above [facility] Other 04-01-2022 History general Narrative - Reported* Type Description Date Medical History hypertension Surgical History bilateral SANDRO Surgical History abdominal surgery Surgical History RT TKR 10/2021 Surgical History COLONOSCOPY Hospitalization History see above [facility] Other 04-01-2022 History general Narrative - Reported* Type Description Date Medical History hypertension Medical History Frozen shoulder Medical History Lumbar pain Surgical History bilateral SANDRO Surgical History abdominal surgery Surgical History RT TKR 10/2021 Surgical History COLONOSCOPY Hospitalization History see above [facility] Other 03-24-2022 Evaluation note* Encounter Date Diagnosis [...] rehab stay. Joints Meeting Checklist - [facility] - Approach/Technique: ZULLY - [...] elected to proceed with the above surgery. [facility] Other 03-01-2022 Evaluation note* Encounter Date Diagnosis [...] note writ ten by Richar Kruger LPN, Cardiovascular Sonographer. Edited and approved by Dr. Wayne Mccallum MD. [facility] Other 03-01-2022 Evaluation note* Encounter Date Diagnosis Assessment Notes Treatment Notes Treatment Clinical Notes Sep, Primary osteoarthritis of both knees (ICD-10 - M17.0) [facility] Other 01-25-2022 Evaluation note* Encounter Date Diagnosis Assessment Notes Treatment Notes Treatment Clinical Notes Jul, Primary osteoarthritis of both knees (ICD-10 - M17.0) [facility] Other 01-13-2022 Evaluation note* Encounter Date Diagnosis [...] note writ ten by Richar Kruger LPN, Cardiovascular Sonographer. Edited and approved by Dr. Wayne Mccallum MD. [facility] Other 10-28-2021 Evaluation note* Encounter Date Diagnosis [...] note writ ten by Nissa Murillo CMA, Cardiovascular Sonographer. Edited and approved by Dr. Wayne Mccallum MD. [facility] [employer] Other Evaluation noteNo assessment information available [facility] Work Phone: Evaluation noteNo InformationNort Standard[employer]ine Other Evaluation note* Diagnosis Onset Date Resolution Status Right femoral vein DVT acute [facility] Work Phone: History general Narrative - Reported* Type Description Date Medical History hypertension Surgical History bilateral SANDRO Surgical History abdominal surgery stylemarks Other Family History No Family History Records Found Relationship Condition Age at Onset Recorded Date/T lucas father Heart problem Unknown Congestive heart failure Unknown Not Specified Myocardial infarction Unknown sister Non-Hodgkin's lymphoma Unknown Relationship Condition Age at Onset Recorded Date/T lucas father Heart problem Unknown Congestive heart failure Unknown Not Specified Myocardial infarction Unknown sister Non-Hodgkin's lymphoma Unknown father Unknown Hypertension Unknown family member Unknown Not Specified Unknown natural son Heart disease Unknown Advance Directives No Advanced Directives Records Found Advance Directive Response Recorded Date/ Time Advance Directives No November 29 8 12:37pm Summary Purpose Reason for Referral Reason evaluate and t reat Diagnosis 1 Lumbar pain (M54.50) Referral Organization [facility] Ne urosurgery Referring Provider First Name Ny Referring Provider Last Name Annabel Referring Provider Specialty Nurse Pract itioner Referred Organization [facility] Referred Provider Wayne Mccallum Referred Address [address] [place],[address] Referred Provider Specialty Pain Medicin e Referral Priority Routine General Notes Eryn Reynoso 02:02:11 PM >received today, patient previously seen by Dr Mccallum (last visit Feb 2022) and is still considered established. sending p2p at this time for scheduling. Reason evaluate and t reat for peripheral vascular disease Diagnosis 1 Peripheral vascular disease (I73.9) Referral Organization [facility]gery Referring Provider First Name Ny Referring Provider Last Name Annabel Referring Provider Specialty Nurse Pract itioner Referred Organization [facility] Vascular Surge ry Referred Provider Willy Yancey Referred Address [address],[facility] [address],[place],[address] Referred Provider Specialty Vascular Samantha piotr Referral Priority Routine General Notes Eryn Reynoso 02:08:33 PM >received today, p2p sent for scheduling Reason *Waiting for appt chronic lumbar - recent MRI Diagnosis 1 Lumbar pain (M54.50) Referral Organization [facility] Referring Provider First Name Vashti Referring Provider Last Name Amber Referring Provider Specialty Family Medi cine Referred Organization [facility] Referred Provider Jose Clark Referred Address [address],[facility] [address] ,[place], [place],[address] Referred Provider Specialty Neurological Surgery Referral Priority Routine General Notes Shira Gan 12:19:28 PM >received today, referral faxed P2P Chief Complaint and Reason for Visit Chief Complaint Legs Swelling 2 WEEK CHECK UP Reason for Visit Right femoral vein D VT Additional Source Comments REASON FOR VISIT (unrecogniz ed section and content) RECHECKRECHECKRXMEDICATION R EFILLNo InformationNo InformationH & P RIGHT TOTAL KNEE [id number] WK WOUND CHECKRecheck Right Knee6 WK RECHECKLT KNEE PAINrx requestmed refill1 YEAR, LT KNEE PAINLeft FootNo Informationfoot xrayNo Informationeasily bruisinglabsOP SP DISCUSS MEDSeasily bruisingREFILLOP SP LT KNEE PAIN WANTS INJECTIONRefillNo Informationrefilltingling/numbness in footxraylumbar MRIlabsVenous US Resultslegs swellingMed Refillchronic lumbarNeurosurgery office note Care Teams (unrecognized sec tion and content) Team Status: Inactive Member Role Status Dates Vashti Clark MD Primary Care Provider Active Jose Najera II, MD Attending Provider Active Team Status: Active Member Role Status Dates Vashti Clark MD Primary Care Provider Active Team Status: Active Member Role Status Dates Provider Conversion Attending Provider Active St art: June 27, 2023 Team Status: Inactive Member Role Status Dates Vashti Clark MD Attending Provider Active St art: August 16, 2023 End: August 16, 2023 Team Status: Inactive Member Role Status Dates Vashti Clark MD Primary Care Provide r, Attending Provider Active Start: August 30, 2023 End: August 30, 2023 Goals (unrecognized section and content) Goals may be documented in a n alternate section INFORMATION SOURCE (unrecogn ized section and content) DATE CREATED AUTHOR 12/22/2022 [facility] DATE CREATED AUTHOR AUTHOR'S ORGANIZ ATION 06/20/2023 [facility] DATE CREATED AUTHOR AUTHOR'S ORGANIZ ATION 09/16/2023 [facility] DATE CREATED AUTHOR AUTHOR'S ORGANIZ ATION 09/26/[address] [facility] FOR RECORDS PERTAINING TO PATIENTS WHO ARE [...] BE BASED ON THE PRIMARY CLINICAL RECORDS. [employer] provides no warranty or guarantee of the accuracy or completeness of information in this document.
[2023-10-01 10:49] VITALS: BP 140/74; PULSE 90; RESP 16; TEMP 36.3; O2SAT 98
[2023-10-01 11:07] VITALS: BP 162/72; PULSE 82; RESP 18; O2SAT 93
[2023-10-01 11:10] VITALS: BP 154/67; PULSE 80; RESP 18; O2SAT 95
[2023-10-01] MEDS: BUPIVACAINE HCL 0.25% PF 25 MG/10 ML VIAL 8 ML INJ (11:11)
[2023-10-01] MEDS: LIDOCAINE HCL 2% PF 100 MG/5 ML VIAL 1.5 ML INJ (11:12)
--- NOTE | 2023-10-01 11:19 | W.PM.PROCNOT ---
Date of procedure: 10/01/23 Pre-op diagnosis: Lumbar spondylosis Post-op diagnosis: same as pre-op Procedure: Procedure: Bilateral L4-5, L5-S1 medial branch block Medications: Bupivacaine 0.25% 6cc The patient was seen and examined in the preoperative holding area.? An informed consent was obtained and placed on the chart.? The patient was brought to the medical procedure unit and placed in the prone position.? A timeout was completed verifying correct patient, procedure site, positioning, plan, and special equipment.? Using aseptic technique, the needle was placed at left L4. Under direct fluoroscopic visualization a Quincke-tipped spinal needle was advanced to the junction of the superior articulating process with the transverse process at the designated medial branch segment.? Preceded by negative aspiration, the above-mentioned injectate was placed in 1 mL aliquots.? The procedure was repeated at left L5, S1.? The needle was removed and insertion site was covered. The same procedure, at the same levels, was completed on the right side. The patient was taken to the postprocedural recovery area and monitored for an appropriate length of time before found suitable for discharge in the company of a responsible adult. Anesthesia: Local Surgeon: Marc Nowak Pathology: none sent Condition: stable Disposition: no change
== END 2023-10-01 11:17 | disposition home or self-care (01) ==
LOC: SURGOUT 10:06
PROVIDERS: PCP Family Medicine; Visit Provider Anesthesiology
DX: M47.816 Spondylosis without myelopathy or radiculopathy, lumbar region (principal)
CPT/HCPCS: 64493; 64494

== ENCOUNTER 2023-10-10 14:15 | Outpatient (OUT) | payer MEDICARE, SELFPAY ==
--- NOTE | 2023-10-10 14:37 | P.CN_ITS ---
Consult Note: HPI Data of Consult Patient: known to practice within the last 3 years Consult date: 09/24/23 Requesting Physician: Amena Gutiérrez NP Primary Care Provider: Vashti Engle MD Consult Narrative Reason for consult: low back pain Narrative: 73yof who presents for evaluation. longstanding low back pain that is worsened with standing and ambulation. imaging shows severe facet arthropathy from l4-s1. also severe stenosis at l5-s1, more moderate at other lumbar levels. has engaged in >6 weeks of provider directed home exercise program, without benefit. uses diclofenac 75mg bid prn. denies adverse med side effects. Pain 4/10 increasing to 8/10 with walking lifting bending activity, pain improved with lying sitting and sleeping. Pt stopped gabapentin as it caused her to be clumsy and foggy. recently underwent bilateral L4-5 L5-S1 facet medial branch block #1 with >90% improvement in low back pain and functional ability for 2 hours. cc:: CC: Amena Gutiérrez NP Review of Systems ROS Status of ROS 10 or more systems reviewed and unremark able except as noted in history and below Musculoskeletal Reports: back pain PFSH PFSH Medical History (Updated 10/01/23 @ 10:47 by Jeri Macias) Low back pain ?M54.50 - Low back pain, unspecified (ICD-10) Osteoarthritis ?M19.90 - Unspecified osteoarthritis, unspecified site (ICD-10) PAD (peripheral artery disease) ?I73.9 - Peripheral vascular disease, unspecified (ICD-10) Hiatal hernia ?K44.9 - Diaphragmatic hernia without obstruction or gangrene (ICD-10) Heartburn ?R12 - Heartburn (ICD-10) Hypertension ?I10 - Essential (primary) hypertension (ICD-10) Surgical History H/O exploratory laparotomy ?Z98.890 - Other specified postprocedural states (ICD-10) History of knee replacement ?Z96.659 - Presence of unspecified artificial knee joint (ICD-10) History of hip replacement ?Z96.649 - Presence of unspecified artificial hip joint (ICD-10) Meds Home Medications and Allergies Home Medications ?Medication ?Instructions ?Recorded ?Confirmed ?Type apixaban 5 mg tablet (Eliquis) mg 09/24/23 History atorvastatin 40 mg tablet mg 09/24/23 History diclofenac sodium 75 mg mg PO 09/24/23 History tablet,delayed release gabapentin 300 mg capsule 300 mg PO TID 09/24/23 10/01/23 History metoprolol succinate 100 mg mg PO 09/24/23 History tablet,extended release 24 hr verapamil 180 mg tablet,extended mg PO 09/24/23 History release Allergies Allergy/AdvReac Type Severity Reaction Status Date / Time No Known Drug Allergies Allergy Verified 10/01/23 10:44 Exam Narrative Exam Narrative: Psych-alert and oriented x 3. Attentive and appropriate, constitutionally normal, displays normal mood and affect per situation.? There are no obvious deficits in memory, reasoning, or intellect.? Skin-no obvious rashes, bruising, erythema noted to the patient's area of pain. Extremities- extremities are warm with minimal edema and palpable pulses. Lumbar-no significant tenderness to palpation noted in the lumbar spine and paraspinal musculature.? Pain is elicited with extension, and lateral rotation of the lumbar spine. Range of motion is slightly diminished with these motions due to pain. Facet loading maneuvers are positive bilaterally and do appear to be concordant with the patient's normal complaints of pain.? Coordination remains intact.? Gait remains non-antalgic. Constitutional Documenting provider has reviewed patient's vital signs: yes Common normals: no apparent distress, oriented x3, healthy appearing, alert and well nourished General appearance: cooperative [facility] Common normals: normocephalic, hearing grossly normal bilaterally and moist oral mucous membranes Head and scalp: normocephalic Eye Common normals: PERRL Pupil: PERRL Neck & C-Spine Common normals: full ROM General: normal visual inspection Chest Common normals: inspection of chest normal Respiratory Common normals: normal respiratory effort, no retractions and no use of accessory muscles Neuro Common normals: oriented x3, CN's II-XII intact bilaterally, moves all extremiti es, no focal motor deficits, no sensory deficits noted and deep tendon reflexes 2+ bilaterally Sensorium/orientation: alert Motor exam: strength 5/5 throughout and no movement abnormalities noted Psych Common normals: mental status grossly normal, thought process normal, cooperative, affect normal, speech normal and activity/motor behavior normal Speech: normal speech Thought process: normal thought process Results Additional Findings Additional findings: If on a controlled substance or opioids, I have checked an [place] report on this patient and there are no aberrancies noted in the prescribing history.??If on a controlled substance or opioid a drug screen was completed and reviewed within the last year, and if there has not been a drug screen completed we ordered one today to monitor higher risk, state monitored pain medication use. As part of providing excellent, safe, comprehensive care, the following was completed at our patient's visit: 1. A medication reconciliation and review to ensure accurate knowledge of current/active medications, including asking our patients to inform us about any [id number] medications or herbal remedies/nutritional supplements/alternative remedies. 2. A review to specifically ensure our patients have had annual screening for screening for depression, screening for tobacco use, and screening for unhealthy alcohol use. For concerning screenings had a discussion with the patient, provided patient education, and recommended follow-up with primary care provider when appropriate. If patient noted with a risk of falling, they received education on strength, gait, and balance training to prevent future risk of falling. Assessment and Plan Assessment and Plan (1) Lumbar spondylosis: Assessment and Plan: The patient has had over 3 months of moderate to severe low back pain with functional impairment and inadequate response to conservative care including NSAIDS (unless there are contraindication such as concurrent blood thinners), multiple oral or topical pain medications, and home exercise program/physical therapy.? Patient has completed >6 weeks of guided home exercise program and/or formal physical therapy program without relief of their symptoms.? I have reviewed the imaging of the lumbar spine and no red flags were identified.? The imaging reveals radiographic findings consistent with lumbar spondylosis? The Oswestry Disability Index was completed, and the patient scored a 33%.? The patient noted the following:?? pain prevents patient from standing more than 30 minutes, walking distances, impairs sleep, personal life social life, causes moderate to severe pain We discussed the risks and benefits of the procedure with the patient, and we are NOT planning on using sedation as outlined in the guidelines from Medicare unless there is a documented reason that sedation would be strongly recommended.?? The procedure will be completed with fluoroscopic guidance.? (2) Low back pain: Plan bilateral L4-5 L5-S1 facet medial branch block #2 working towards RFA patient not interested in trialing gabapentin at a lower dose f/u after injection
== END 2023-10-10 14:16 | disposition home or self-care (01) ==
LOC: PM 14:15
PROVIDERS: PCP Family Medicine; Visit Provider Nurse Practitioner
DX: M47.816 Spondylosis without myelopathy or radiculopathy, lumbar region (principal); M54.50 Low back pain, unspecified
CPT/HCPCS: G0463

== ENCOUNTER 2023-10-29 10:14 | Day surgery (SDC) | payer MEDICARE, SELFPAY ==
--- OUTSIDE RECORDS SUMMARY | 2023-10-29 10:34 | XMS_ITS | CCD ---
Author Organization [facility] Care Team Providers Care Manager [place] Name Role Phone Wayne Mccallum Unavailable Jose Najera II Unavailable MD Vashti Clark Primary Care Provider MD Jose Najera II Attending Provider AMBER, [...] II Attending UnavailVashti Ricks Primary Care Unavailable MD Vashti Clark Primary Care Provider MD Willy Yancey Attending Provider She MUJICA, Marc Tavares Attending Unavailable Marc Nowak MD Attending Unavailable Allergies Allergy Classification Reported Allergen(s) Allergy Type Date of Onset Reaction(s) Facility (6 sources) patient allergy list reviewed by nurse or physicia Propensity to adverse reactions 5 Comment:Done H2020 Other (6 sources) Allergies Reconciled Propensity to adverse reactions Unknown H2020 Other Medications Current Medications Medication Drug Class(es) Dates Sig (Normalized) Sig (Original) acetaminophen 500 mg oral tablet (11 sources) Start: 10-31-2021 take 500 mg by mouth four times daily Acetaminophen Active 500 MG PO Four times daily 120 October 31, 2021 12:00am Start: 10-25-2021 End: 10-31-2021 take 1000 mg by mouth every eight hours Acetaminophen Discontinued 1000 MG PO Q8H October 25, 2021 12:00am October 31, 2021 2:03pm Start: 10-06-2021 take 2 tablets by mo uth every eight hours for pain Acetaminophen 500 MG 2 tablets for pain Orally every 8 hrs for 30 days MED TO BED UPON DISCHARGE DOS:10/24/2021 24 Sep, 2021 Active amoxicillin 500 mg oral capsule (7 [...] days Active apixaban 5 mg oral tablet (9 sources) Factor Xa Inhibitor Start: 08-30-19 End: 08-30-19 take 1 tablet by mouth twice daily Apixaban (Eliquis) 5 mg tablet Active 5 MG PO Twice daily 60 August 30, 2023 12:14pm take 1 tablet by mouth every twe lve hours Eliquis 5 MG 1 tablet Orally Twice a day Active atorvastatin 40 mg oral tablet (2 sources) HMG-CoA Reductase Inhibitor Start: 09-16-2023 take 40 mg by mouth once daily Atorvastatin Active 40 MG PO Daily September 16, 2023 1:00am cephalexin 500 mg oral capsule (1 source) Cephalosporin Antibacterial Start: 10-15-2023 take 500 mg by mouth three times daily Cephalexin Active 500 MG PO Three times daily 02 02October 15, 2023 12:00am diclofenac sodium 75 mg delayed release oral tablet (20 sources) Nonsteroidal Anti-inflammatory Drug Start: 08-29-2023 take 1 tablet by mouth twice daily as needed Diclofenac Sodium Active 75 MG PO Twice daily August 29, 2023 1:00am [employer] tablet as needed Orally Twice a [...] Discontinued 75 MG PO Twice daily October 10, 2021 12:00am October 25, 2021 2:10pm docusate sodium 50 mg / sennosides, fci 8.6 mg oral tablet (3 sources) Start: 10-06-2021 take 2 tablets by mouth every twenty-four hours Senokot S 8.6-50 MG 2 tablets Orally Once a day for 30 day(s) MED TO BED UPON DISCHARGE DOS:10/24/2021 24 Sep, 2021 Active famotidine 20 mg oral tablet (8 sources) Histamine-2 Receptor Antagonist Start: 10-10-2021 End: 10-31-2021 take 20 mg by mouth once daily Famotidine Active 20 MG PO Daily 30 October 31, 2021 12:00am hyoscyamine sulfate 0.125 mg disintegrating oral tablet (8 sources) Start: 10-31-2021 take 1 tablet by mouth four times daily Hyoscyamine Sulfate (Anaspaz) 0.125 mg Tablet,Disintegrat ing Active 0.125 MG PO Four times daily October 31, 2021 12:00am Start: 10-10-2021 End: 10-31-2021 take 0.125 mg by mouth four times daily Hyoscyamine Sulfate Discontinued 0.125 MG PO Four times daily October 10, 2021 12:00am October 31, 2021 2:03pm 24 hr metoprolol succinate 100 mg extended release oral tablet (20 sources) beta-Adrenergic Alex Start: 08-29-2023 take 1 tablet by mouth once daily Metoprolol Succinate Active 100 MG PO Daily August 29, 2023 1:00am [employer] tablet Orally Once a day; Note: Source Status: Taking; Refills: 3; Qty: 90 Tablet; Provider: Amber Porter Start: 10-31-2021 End: 10-15-2023 take 1 tablet by mouth twice daily at mealtime Metoprolol Tartrate Discontinued 100 MG PO Twice daily August 29, 2023 1:00am October 15, 2023 11:29am [employer] tablet with food Orally Twice a day; Note: Source Status: Taking; Refills: 2; Provider: Amber Porter Start: 10-10-2021 End: 10-31-2021 take 100 mg by mouth once daily in the morning Metoprolol Tartrate Discontinued 100 MG PO Every morning October 10, 2021 12:00am October 31, 2021 2:03pm take 1 tablet by therese th every [...] days MED TO BED UPON DISCHARGE DOS:10/24/2021 24 Sep, 2021 Active verapamil hydrochloride 180 mg extended release oral tablet (20 sources) Calcium Channel Alex Start: 09-27-2023 take 1 tablet by mouth once daily Verapamil Active 0 .ROUTE .COMPLEX 90 September 27, 2023 12:02pm Take 1 tablet by mouth once daily for 90 days Start: 10-10-2021 End: 10-15-2023 take 1 tablet by mouth once daily Verapamil Discontinued 180 MG PO Daily August 29, 2023 1:00am October 15, 2023 11:30am FreeTextSig: Take 1 tablet by mouth once daily; Note: Source Status: Taking; Refills: 1; Qty: 90 Tablet; Provider: Amber Porter Completed/Discontinued Medications Medication Drug Class(es) Dates Sig (Normalized) Sig (Original) ascorbic acid 500 mg oral tablet (8 sources) Vitamin C Start: 10-25-2021 End: 10-15-2023 take 1 tablet by mouth twice daily at mealtime Ascorbic Acid (Vitamin C) (Vitamin C) 500 mg Tablet Discontinued 500 MG PO Twice daily with meals 60 30 October 31, 2021 12:00am October 15, 2023 11:28am aspirin 81 mg delayed release oral tablet (11 sources) Platelet Aggregation Inhibitor, Nonsteroidal Anti-inflammatory Drug Start: 10-25-2021 End: 10-15-2023 take 81 mg by mouth twice daily Aspirin Discontinued 81 MG PO Twice daily 40 October 31, 2021 12:00am October 15, 2023 11:28am Start: 10-06-2021 take 1 tablet by therese th twice daily Aspirin 81 MG 1 tablet Orally BID for 35 days MED TO BED UPON DISCHARGE DOS:10/24/2021 24 Sep, 2021 Active Calcium Carbonate-Vitamin D3 (Oyster Shell Calcium-Vit D3) 500 mg-5 mcg (200 unit) Tablet (8 sources) Start: 10-31-2021 End: 10-15-2023 take 1 tablet by mouth twice daily Calcium Carbonate-Vitamin D3 (Oyster Shell Calcium-Vit D3) 500 mg-5 mcg (200 unit) Tablet Discontinued 1 TAB PO Twice daily 60 October 31, 2021 12:00am October 15, 2023 11:28am Start: 10-31-2021 take 1 tablet by therese th twice daily Calcium Carbonate-Vitamin D3 (Oyster Shell Calcium-Vit D3) 500 mg-5 mcg (200 unit) Tablet Active 1 TAB PO Twice daily 60 October 31, 2021 12:00am Start: 10-31-2021 take 1 tablet by therese th twice daily Calcium Carbonate-Vitamin D3 (Oyster Shell Calcium-Vit D3) 500 mg-5 mcg (200 unit) Tablet Active 1 TAB PO Twice daily 60 October 30, 2021 11:00pm Start: 10-25-2021 End: 10-31-2021 take 1 tablet by mouth twice daily Calcium Carbonate-Vitamin D3 (Oyster Shell Calcium-Vit D3) 500 mg-5 mcg (200 unit) Tablet Discontinued 1 TAB PO Twice daily October 25, 2021 12:00am October 31, 2021 2:03pm Start: 10-25-2021 End: 10-31-2021 take 1 tablet by mouth twice daily Calcium Carbonate-Vitamin D3 (Oyster Shell Calcium-Vit D3) 500 mg-5 mcg (200 unit) Tablet Discontinued 1 TAB PO Twice daily October 24, 2021 11:00pm October 31, 2021 1:03pm cefadroxil 500 mg oral capsule (7 sources) Cephalosporin Antibacterial Start: 10-25-2021 End: 10-31-2021 take 500 mg by mouth twice daily Cefadroxil Discontinued 500 MG PO Twice daily October 25, 2021 12:00am October 31, 2021 2:03pm Start: 10-06-2021 take 1 capsule by mo [facility] every twelve hours Cefadroxil 500 MG 1 tablet Orally every 12 hrs for 7 days MED TO BED UPON DISCHARGE DOS:10/24/2021 Sep, Active celecoxib 200 mg oral capsule (11 sources) Nonsteroidal Anti-inflammatory Drug Start: 10-06-2021 End: 10-31-2021 take 200 mg by mouth twice daily Celecoxib Discontinued 200 MG PO Twice daily October 25, 2021 12:00am October 31, 2021 2:03pm hyaluronate (20 sources) Start: 03-19-2018 Supartz Mar, Start: 03-05-2018 Supartz Feb Start: 02-26-2018 Supartz Feb Start: 02-19-2018 Supartz Feb melatonin 5 mg oral tablet (4 sources) Start: 10-31-2021 End: 10-15-2023 take 5 mg by mouth once daily at bedtime Melatonin Discontinued 5 MG PO Daily at bedtime 30 October 31, 2021 12:00am October 15, 2023 11:29am oxyCODONE hydrochloride 5 mg oral tablet (10 sources) Opioid Agonist Start: 10-31-2021 End: 10-15-2023 take 5 mg by mouth four times daily Oxycodone Discontinued 5 MG PO Four times daily 20 5 October 31, 2021 October 15, 2023 11:29am Start: 10-25-2021 End: 10-31-2021 take 5 mg by mouth every four hours Oxycodone Discontinued 5 MG PO Every 4 hours October 25, 2021 October 31, 2021 2:03pm Start: 10-06-2021 take 1 tablet by [facility] every four hours as needed for pain oxyCODONE HCl 5 MG 1 tablet as needed for pain Orally every 4 hrs for 10 days MED TO BED UPON DISCHARGE DOS:10/24/2021 Sep, Active polyethylene glycol 3350 11576 mg powder for oral solution (7 sources) Osmotic Laxative Start: 10-06-2021 End: 10-31-2021 Polyethylene Glycol 3350 (Miralax) 17 gram Powder In Packet Discontinued 17 GM PO Daily October 25, 2021 12:00am October 31, 2021 2:03pm raNITIdine 150 mg oral tablet (20 sources) Histamine-2 Receptor Antagonist Start: 08-29-2023 End: 10-15-2023 take 150 mg by mouth once daily at bedtime Ranitidine Hcl Discontinued 150 MG PO Daily at bedtime August 29, 2023 1:00am October 15, 2023 11:30am take 1 tablet by therese th once daily at bedtime Zantac 150 MG 1 tablet at bedtime Orally Once a day prn Active Theraputic Injection (20 sources) Start: 03-12-2018 Theraputic Injection Feb, traMADol hydrochloride 50 mg oral tablet (20 sources) Opioid Agonist Start: 10-25-2021 End: 10-31-2021 take 50 mg by mouth every four hours Tramadol Discontinued 50 MG PO Q4H October 25, 2021 12:00am October 31, 2021 2:03pm Start: 10-06-2021 take 1 tablet by therese th every six hours as needed for pain traMADol HCl 50 MG 1 tablet as needed for pain Orally every 6 hrs for 10 days MED TO BED UPON DISCHARGE DOS:10/24/2021 Sep, Active Start: 07-28-2021 End: 10-24-2021 take 50 mg by mouth twice daily Tramadol Discontinued 50 MG PO Twice daily October 10, 2021 12:00am October 24, 2021 9:50am triamcinolone acetonide 40 mg/ml injectable suspension (20 [...] Translations: [Generalized abdominal pain] Episodic Administrative/social admission (4 sources) Other reduced mobility; Translations: [Impaired mobility [...] not elsewhere classified] Chronic Other gastrointestinal disorders (4 sources) Irritable bowel syndrome; Translations: [Irritable bowel [...] Polyneuropathy, unspecified Chronic Other nervous system disorders (4 sources) Postoperative pain ; Translations: [Other acute [...] Onset: 08-31-2017 Chronic Peripheral and visceral atherosclerosis (10 sources) Peripheral vascular disease; Translations: [Peripheral vascular disease, unspecified] Onset: 09-13-2023 Chronic Phlebitis; thrombophlebitis and thromboembolism (6 sources) Deep venous thrombosis of lower extremity; Translations: [Acute embolism and thrombosis of right femoral vein] 08-30-2023 Episodic Residual codes; unclassified (4 sources) Patient encounter status; Translations: [Encounter for [...] of right artificial knee joint] Onset: 11-02-2022 Varicose veins of lower extremity (2 sources) 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; Translations: [Venous stasis ulcer of left lower extremity] 10-15-2023 Episodic Past or Other Problems Problem Classification Problem [...] ity US ankle/arm indiceson US ankle/arm indices [facility] [place] [address] Ultrasound Report Signed Patient: Kami Fink MR#: [id number] [birth year] : 1950 Acct:[id number] Age/Sex: 73 / F ADM Date: 09/13/23 Loc: [facility] Room: Type: [facility] Attending Dr: Willy Yancey MD Ordering Provider: [...] Willy Yancey MD09/13/2023 2:37 PM Dictation Location: [place] [address] Tech: Marquita Carlos Transcribed By: DALILA 09/13/23 1437 Dictated By: Willy Yancey MD 09/13/23 1435 Signed By: 09/13/23 1437 Normal [facility] XR knee RT 2Von 11-02-2022 XR knee RT 2V [facility] Main [place] [address] [place] [address] XRay Report Signed Patient: Kami Fink MR#: [id number] [birth year] : 1950 Acct:[id number] Age/Sex: 72 / F ADM Date: 11/02/22 Loc: [facility] Room: Type: [facility] Attending Dr: Jose Najera II, MD Copies [...] Mondragon Jr., D.OEdgard11/02/2022 3:18 PM Dictation Location: [place] [address] Transcribed By: DALILA 11/02/22 1518 Dictated By: Audie Mondragon Jr, DO 11/02/22 1517 Signed By: 11/02/22 1518 Normal [facility] XR knee RT 2V [facility] Other XR knee RT 2V [facility] Main [facility] Other XR knee RT 2V [address] [facility] Other XR knee [place] 2[place] [address] [facility] Other XR knee RT 2V XRay Report [facility] [employer] Other XR knee RT 2V Signed H2020 Other XR knee RT 2V Patient: Krystle Fink MR#: [id number] [place] [facility] Other XR knee RT 2V 31 H2020 Other XR knee RT 2V : 1950 Acct:[id number] H2020 Other XR knee RT 2V Age/Sex: 72 / F ADM Date: 11/02/22 H2020 Other XR knee RT 2V Loc: [facility] Room: Type : [facility] H2020 Other XR knee RT 2V Attending Dr: Jose Najera II, MD H2020 Other XR knee RT 2V Copies to: Jose Najera MD H2020 Other XR knee RT 2V Ordering Provider: Jose Najera MD H2020 Other XR knee RT 2V Date of Service: 11/02/22 H2020 Other XR knee RT 2V XR/XR knee RT 2V: History of total right knee replacement H2020 Other XR knee RT 2V RIGHT KNEE - 2 views N [facility] Other XR knee RT 2V CLINICAL HISTORY: Follow-up right TKA H2020 Other XR knee RT 2V COMPARISON: Right knee 01/18/2022 H2020 Other XR knee RT 2V FINDINGS: H2020 Other XR knee RT 2V No evidence of hardware complication or acute bony process. H2020 Other XR knee RT 2V XR/XR knee RT 2V H2020 Other XR knee RT 2V IMPRESSION: [employer] Other XR knee RT 2V NO EVIDENCE OF HARDWARE COMPLICATION. H2020 Other XR knee RT 2V Impression dictated by: Audie Mondragon Jr., D.OEdgard11/02/2022 3:18 PM H2020 Other XR knee RT 2V Dictation Location: [place] [address] H2020 Other XR knee RT 2V Transcribed By: PWS 11/02/22 [facility] H2020 Other XR knee RT 2V Dictated By: Audie Mondragon Jr DO 11/02/22 [facility] H2020 Other XR knee RT 2V Signed By: H2020 Other XR knee RT 2V 11/02/22 [facility] [employer] Other Vital Signs Date Time Vital Sign Value Performing Clinician Facility 10-15-2023 11:18-0400 Body height 161.29 cm MD Vashti Clark Work Phone: [facility] 10-15-2023 11:18-0400 Body mass index (BMI) [Ratio] 36.6 kg/m2 MD Vashti Clark Work Phone: [facility] 10-15-2023 11:18-0400 Body weight 95.36 kg MD Vashti Clark Work Phone: [facility] 10-15-2023 11:18-0400 Diastolic blood pressure 81 mm[Hg] MD Vashti Clark Work Phone: [facility] 10-15-2023 11:18-0400 Heart rate 77 /min MD Vashti Clark Work Phone: [facility] 10-15-2023 11:18-0400 Systolic blood pressure 142 mm[Hg] MD Vashti Clark Work Phone: [facility] 09-13-2023 11:54-0500 Body height 161.29 cm MD Vashti Clark Work Phone: [facility] 09-13-2023 11:54-0500 Body mass index (BMI) [Ratio] 37.8 kg/m2 MD Vashti Clark Work Phone: [facility] 09-13-2023 11:54-0500 Body temperature 97.6 [degF] MD Vashti Clark Work Phone: [facility] 09-13-2023 11:54-0500 Body weight 98.42 kg MD Vashti Clark Work Phone: [facility] 09-13-2023 11:54-0500 Diastolic blood pressure 82 mm[Hg] MD Vashti Clark Work Phone: [facility] 09-13-2023 11:54-0500 Heart rate 89 /min MD Vashti Clark Work Phone: [facility] 09-13-2023 11:54-0500 Respiratory rate 16 /min MD Vashti Clark Work Phone: [facility] 09-13-2023 11:54-0500 SaO2% (BldA) [Mass fraction] 99 % MD Vashti Clark Work Phone: [facility] 09-13-2023 11:54-0500 Systolic blood pressure 124 mm[Hg] MD Vashti Clark Work Phone: [facility] 08-30-2023 10:41-0500 Body height 161.29 cm [facility] 08-30-2023 10:41-0500 Body mass index (BMI) [Ratio] 37.8 kg/m2 [facility] 08-30-2023 10:41-0500 Body weight 98.42 kg [facility] 08-30-2023 10:41-0500 Diastolic blood pressure 81 mm[Hg] [facility] 08-30-2023 10:41-0500 Heart rate 87 /min [facility] 08-30-2023 10:41-0500 Systolic blood pressure 155 mm[Hg] [facility] 08-23-2023 09:20-0500 Body height 161.29 cm [employer] Other [employer] [facility] Other 08-23-2023 09:20-0500 Body mass index (BMI) [Ratio] 37.48 kg/m2 [employer] Other [employer] [facility] Other 08-23-2023 09:20-0500 Body weight 97.52 kg [employer] Other H2020 Other 08-16-2023 10:00-0500 Body height 161.29 cm Vashti Clark Other [facility] 08-16-2023 10:00-0500 Body mass index (BMI) [Ratio] 37.83 kg/m2 Vashti Clark Other H2020 Other 08-16-2023 10:00-0500 Body weight 98.43 kg Vashti Clark Other H2020 Other 08-16-2023 10:00-0500 Body weight 98.42 kg [facility] 08-16-2023 10:00-0500 Diastolic blood pressure 81 mm[Hg] Vashti Clark Other [facility] 08-16-2023 10:00-0500 Systolic blood pressure 147 mm[Hg] Vashti Clark Other [facility] 05-29-2023 11:30-0500 Body height 161.29 cm Vashti Clark Other H2020 Other 05-29-2023 11:30-0500 Body mass index (BMI) [Ratio] 37.41 kg/m2 Vashti Clark Other H2020 Other 05-29-2023 11:30-0500 Body weight 97.34 kg Vashti Clark Other H2020 Other 05-29-2023 11:30-0500 Diastolic blood pressure 85 mm[Hg] Vashti Clark Other H2020 Other 05-29-2023 11:30-0500 Respiratory rate 16 /min Vashti Clark Other H2020 Other 05-29-2023 11:30-0500 Systolic blood pressure 174 mm[Hg] Vashti Clark Other H2020 Other 03-15-2023 08:45-0400 Body height 161.29 cm Jose Crisp II Other H2020 Other 03-15-2023 08:45-0400 Body mass index (BMI) [Ratio] 38.01 kg/m2 Jose Crisp II Other H2020 Other 03-15-2023 08:45-0400 Body weight 98.88 kg Jose Crisp II Other H2020 Other 01-18-2023 11:15-0400 Body height 161.29 cm Vashti Clark Other H2020 Other 01-18-2023 11:15-0400 Body mass index (BMI) [Ratio] 38.01 kg/m2 Vashti Clark Other H2020 Other 01-18-2023 11:15-0400 Body weight 98.88 kg Vashti Clark Other H2020 Other 01-18-2023 11:15-0400 Diastolic blood pressure 81 mm[Hg] Vashti Clark Other H2020 Other 01-18-2023 11:15-0400 Systolic blood pressure 167 mm[Hg] Vashti Clark Other H2020 Other 12-12-2022 13:45-0400 Body height 161.29 cm Vashti Clark Other H2020 Other 12-12-2022 13:45-0400 Body mass index (BMI) [Ratio] 37.48 kg/m2 Vashti Clark Other H2020 Other 12-12-2022 13:45-0400 Body weight 97.52 kg Vashti Clark Other H2020 Other 12-12-2022 13:45-0400 Diastolic blood pressure 59 mm[Hg] Vashti Clark Other H2020 Other 12-12-2022 13:45-0400 Systolic blood pressure 147 mm[Hg] Vashti Clark Other H2020 Other 11-02-2022 15:45-0400 Body height 167.64 cm Jose Peñale II Other H2020 Other 12-07-2021 11:45-0400 Body height 167.64 cm Jose Reinaldo II Other H2020 Other 12-07-2021 11:45-0400 Body mass index (BMI) [Ratio] 34.7 kg/m2 Jose Crisp II Other H2020 Other 12-07-2021 11:45-0400 Body weight 97.52 kg Jose Crisp II Other H2020 Other 11-16-2021 11:45-0400 Body height 167.64 cm Jose Crisp II Other H2020 Other 11-16-2021 11:45-0400 Body mass index (BMI) [Ratio] 34.7 kg/m2 Jose Reinaldo II Other H2020 Other 11-16-2021 11:45-0400 Body weight 97.52 kg Jose Crisp II Other H2020 Other 10-06-2021 16:00-0400 Body height 167.64 cm Jose Crisp II Other H2020 Other 10-06-2021 16:00-0400 Body mass index (BMI) [Ratio] 34.7 kg/m2 Jose Crisp II Other H2020 Other 10-06-2021 16:00-0400 Body weight 97.52 kg Jose Crisp II Other H2020 Other 09-13-2021 16:15-0500 Body height 167.64 cm Wayne Mccallum Other H2020 Other 09-13-2021 16:15-0500 Body mass index (BMI) [Ratio] 34.7 kg/m2 Wayne Mccallum Other [facility] Other 09-13-2021 16:15-0500 Body weight 97.52 kg Wayne Mccallum Other [facility] Other Encounters Encounter Date Encounter Type Care Provider Facility Start: 10-15-2023 End: 10-15-2023 ambulatory MD Vashti Clark Work Phone: [facility] Work Phone: Start: 10-15-2023 End: 10-15-2023 Patient encounter procedure MD Vashti Clark Work Phone: [facility] Work Phone: Start: 10-04-2023 End: 10-04-2023 ambulatory MD Vashti Clark Work Phone: [facility] Work Phone: Start: 10-04-2023 End: 10-04-2023 Patient encounter procedure MD Vashti Clark Work Phone: [facility] Work Phone: Start: 10-01-2023 End: 10-02-2023 ambulatory Marc Nowak MD Facility: [facility] Start: 09-24-2023 End: 09-25-2023 ambulatory Marc Nowak MD Facility: [facility] Start: 09-13-2023 End: 09-13-2023 ambulatory Willy Yancey Facility:[facility] Start: 09-13-2023 End: 09-13-2023 Patient encounter procedure MD Vashti Clark Work Phone: [facility] Start: 09-13-2023 End: 09-13-2023 Patient encounter procedure MD Vashti Clark Work Phone: [facility] Vascular Surgery Work Phone: Start: 08-30-2023 End: 08-30-2023 ambulatory [facility] Work Phone: Start: 08-30-2023 End: 08-30-2023 Patient encounter procedure [facility] Work Phone: Start: 08-27-2023 End: 08-27-2023 ambulatory Ny Jin Other H2020 Other Start: 08-27-2023 Telephone encounter Ny Jin [facility] [employer] Start: 08-23-2023 End: 08-23-2023 ambulatory Ny Jin Other H2020 Other Start: 08-23-2023 Office outpatient ne w 45 minutes Ny Jin [facility] Start: 08-16-2023 End: 08-16-2023 ambulatory Vashti Clark Other H2020 Other Start: 08-16-2023 Office outpatient vi sit 15 minutes Vashti Clark [facility] Start: 08-16-2023 Telephone encounter Vashti Clark [facility] Start: 08-16-2023 End: 08-16-2023 Patient encounter procedure [facility]- Start: 08-13-2023 End: 08-13-2023 ambulatory Jose Najera II Other H2020 Other Start: 08-13-2023 Telephone encounter Jose Najera II [facility] Start: 07-03-2023 End: 07-03-2023 ambulatory Vashti Clark Other H2020 Other Start: 07-03-2023 Telephone encounter Vashti Clark [facility] Start: 06-27-2023 Patient encounter procedure [facility]- Start: 06-18-2023 End: 06-18-2023 ambulatory ANABELLA STEWART Not Available Start: 06-11-2023 End: 06-11-2023 ambulatory Vashti Clark Other H2020 Other Start: 06-11-2023 Telephone encounter Vashti Clark [facility] Start: 06-01-2023 End: 06-01-2023 ambulatory ANABELLA STEWART Not Available Start: 05-29-2023 End: 05-29-2023 ambulatory Vashti Clark Other H2020 Other Start: 05-29-2023 Office outpatient vi sit 15 minutes Vashti Clark [facility] Start: 05-29-2023 Telephone encounter Vashti Clark [facility] Start: 05-14-2023 End: 05-14-2023 ambulatory Jose Crisp II Other H2020 Other Start: 05-14-2023 Telephone encounter Jose Crisp II [facility] Start: 04-02-2023 End: 04-02-2023 ambulatory Vashti Clark Other H2020 Other Start: 04-02-2023 Telephone encounter [facility] [facility] Start: 03-15-2023 End: 03-15-2023 ambulatory Jose Crisp II Other H2020 Other Start: 03-15-2023 Office outpatient vi sit 25 minutes Jose Crisp II [facility] Start: 02-26-2023 End: 02-26-2023 ambulatory Vashti Clark Other H2020 Other Start: 02-26-2023 Telephone encounter Vashti Clark [facility] Start: 02-08-2023 End: 02-08-2023 ambulatory Jose Reinaldo II Other H2020 Other Start: 02-08-2023 Office outpatient vi sit 25 minutes Jose Crisp II [facility] Start: 01-19-2023 End: 01-19-2023 ambulatory Vashti Clark Other H2020 Other Start: 01-19-2023 Telephone encounter Vashti Clark [facility] Start: 01-18-2023 End: 01-18-2023 ambulatory Vashti Clark Other H2020 Other Start: 01-18-2023 Office outpatient vi sit 15 minutes Vashti Clark [facility] Start: 01-17-2023 End: 01-17-2023 ambulatory Joes Reinaldo II Other H2020 Other Start: 01-17-2023 Telephone encounter Jose Reinaldo II [facility] Start: 12-13-2022 End: 12-13-2022 ambulatory Vashti Clark Other H2020 Other Start: 12-13-2022 Telephone encounter Jose Crisp II [facility] Start: 12-12-2022 End: 12-13-[address] VASHTI CLARK Facility: Start: 12-12-2022 Office outpatient vi sit 15 minutes Vashti Clark [facility] Start: 11-02-2022 End: 11-02-2022 ambulatory Jose M Crisp II H2020 Other Start: 11-02-2022 Office outpatient vi sit 25 minutes Jose Crisp II [facility] Start: 10-10-2022 End: 10-10-2022 ambulatory Jose Crisp II Other H2020 Other Start: 10-10-2022 Telephone encounter Jose Crisp II [facility] Start: 06-23-2022 End: 06-23-2022 ambulatory MD Vashti Clark Work Phone: [facility] Work Phone: Start: 06-23-2022 End: 06-23-2022 Patient encounter procedure MD Vashti Clark Work Phone: [facility] Start: 04-13-2022 End: 04-13-2022 ambulatory Jsoe Crisp II Other H2020 Other Start: 04-13-2022 Telephone encounter Jose Reinaldo II [facility] Start: 03-06-2022 End: 03-06-2022 ambulatory Wayne Paynemateo Other H2020 Other Start: 03-06-2022 Office outpatient vi sit 15 minutes Wayne Kerrymateo [facility] [place] Start: 01-18-2022 (Post-Op) Post-Op Jose Crisp II [facility] Start: 01-18-2022 End: 01-18-2022 ambulatory Jose Reinaldo II Other H2020 Other Start: 12-07-2021 (Post-Op) Post-Op Jose Crisp II [facility] Start: 12-07-2021 End: 12-07-2021 ambulatory Jose Crisp II Other H2020 Other Start: 11-21-2021 Pre-procedure evaluation check Jose Crisp II Other H2020 Other Start: 11-16-2021 End: 11-16-2021 ambulatory Jose Reinaldo II Other H2020 Other Start: 11-16-2021 Office outpatient vi sit 15 minutes Jose Crisp II [facility] Start: 10-14-2021 (Prolonged) Prolonge d Services Jose Crisp II [facility] Start: 10-14-2021 End: 10-14-2021 ambulatory Jose Crisp II Other H2020 Other Start: 10-06-2021 End: 10-06-2021 ambulatory Jose Crisp II Other H2020 Other Start: 10-06-2021 Office outpatient vi sit 25 minutes Jose Najera II [facility] Start: 09-13-2021 End: 09-13-2021 ambulatory Jose Najera II Other H2020 Other Start: 09-13-2021 Office outpatient vi sit 25 minutes Wayne Mccallum [facility] [place] Start: 09-13-2021 Telephone encounter Jose Najera II [facility] Start: 08-09-2021 End: 08-09-2021 ambulatory Wayne Paynemateo Other H2020 Other Start: 08-09-2021 Telephone encounter Wayne Mccallum [facility] Start: 07-28-2021 End: 07-28-2021 ambulatory Wayne Mccallum Other H2020 Other Start: 07-28-2021 Office outpatient vi sit 15 minutes Wayne Mccallum [facility] [place] Start: 06-27-2021 Adult health examination Jose Najera II Other H2020 Other Start: 05-12-2021 Office outpatient vi sit 15 minutes Wayne Mccallum [facility] [place] Procedures Date Procedure Procedure Detail Performing Clinician Start: 09-13-2023 Ankle brachial press ure index MD Vashti Clark Work Phone: Start: 06-23-2022 Radiologic examinati on of knee MD Vashti Clark Work Phone: Start: 12-27-2017 Screening for malign ant neoplasm of colon Jose Najera II Other Start: 11-25-2015 General examination of patient Jose Najera II Other Start: 11-25-2015 Screening mammography R anthonykim Najera II Other Screening for malign ant neoplasm of breast Jose Najera II Other Plan of Treatment Date Care Activity Detail Author Start: 10-15-2023 Patient referral [facility] Work Phone: Patient referral [facility] Work Phone: Immunizations Immunization Date Immunization Notes Care Provider Vincenzo sandoval 05-29-2023 influenza virus vaccine, unspecified formulation [facility] 05-29-2023 influenza, high dose seasonal, preservative-free Vashti Clark Other [facility] Other 04-11-2021 COVID-19 mRNA, Comirnaty (Pfizer) MD Vashti Clark Work Phone: [facility] 09-07-2020 COVID-19 mRNA, Comirnaty (Pfizer) MD Vashti Clark Work Phone: [facility] 08-17-2020 COVID-19 mRNA Comirnaty (Pfizer) MD Vashti Clark Work Phone: [facility] 05-24-2020 Kenalog -40 mg Wayne Mccallum Other [facility] Other 03-31-2020 influenza virus vaccine, split virus (incl. purified surface antigen) Jose Najera II Other H2020 Other 03-31-2020 influenza virus vaccine, unspecified formulation [facility] 08-11-2019 Kenalog -40 mg Wayne Mccallum Other H2020 Other 11-04-2018 Kenalog -40 mg Wayne Mccallum Other H2020 Other 03-19-2018 Supartz Wayne Mccallum Other H2020 Other 03-12-2018 Theraputic Injection Wayne Mccallum Other H2020 Other 03-05-2018 Supartz Wayne Mccallum Other H2020 Other 02-26-2018 Daya Mccallum Other H2020 Other 02-19-2018 Daya Mccallum Other H2020 Other 11-27-2017 Kenalog -40 mg Wayne Mccallum Other H2020 Other 05-31-2016 influenza virus vaccine, split virus (incl. purified surface antigen) Jose Reinaldo II Other H2020 Other 05-31-2016 influenza virus vaccine, unspecified formulation [facility] 05-31-2016 pneumococcal polysaccharide vaccine, 23 valent Jose Crisp II Other [facility] Payers Date Payer Category Payer Medicare 2023 Unknown 2022 Self-pay [id number] 1961 Medicare [id number] 2.1 [id number] 1961 Unknown [id number] 2.1 [id number] 1948 Unknown [id number] 2.16.84 [id number] 1948 Unknown [id number] 1948 Unknown [id number] 1948 Unknown [id number] 2.16. [id number] 1950 Unknown [id number] 2.16. [id number] Unknown Karen BC/BS [id number] Unknown [id number] 2.16.8 [id number] Unknown [id number] 2.16.8 [id number] Social History Date Type Detail Facility Unknown if ever smoked H2020 Other Sex Assigned At Sex Assigned At Bir th H2020 Other Start: 10-26-2021 End: 10-26-2021 Tobacco smoking status NCIS Never smoked tobacco (finding) [facility] Start: 1950 Sex Assigned At Female F [facility] Procedure Code Equipment Code Equipment Origin al Text Equipment Identifier Dates Arthroplasty, knee, total, minimally invasive Orthopaedic cement, non-medicated [id number] FDA Start: 10-24-2021 Arthroplasty, knee, total, minimally invasive Uncoated knee femur prosthesis, metallic [id number] FDA Start: 10-24-2021 Arthroplasty, knee, total, minimally invasive Tibial insert [id number] FDA Start: 10-24-2021 Arthroplasty, knee, total, minimally invasive Polyethylene patella prosthesis ()[id number] FDA Start: 10-24-2021 Arthroplasty, knee, total, minimally invasive Knee stem ()[id number] FDA Start: 10-24-2021 Arthroplasty, knee, total, minimally invasive Uncoated knee tibia prosthesis, metallic ()[id number] FDA Start: 10-24-2021 Clinical Notes 05-12-2021 to [...] Aug, Lower extremity edema (ICD-10 - R60.0) H2020 Other 02-01-2024 Evaluation note* Encounter Date Diagnosis Assessment Notes Treatment Notes Treatment Clinical Notes Aug, Leg edema, right (ICD-10 - R60.0) Check US today, discussed other possibilities but r/o DVT first. H2020 Other 12-19-2023 Evaluation note* Encounter Date Diagnosis Assessment Notes Treatment Notes Treatment Clinical Notes Jun, Lumbar pain (ICD-10 - M54.50) H2020 Other 11-27-2023 Evaluation note* Encounter Date Diagnosis Assessment Notes Treatment Notes Treatment Clinical Notes May, DDD (degenerative disc disease), lumbar (ICD-10 - M51.36) H2020 Other 11-14-2023 Evaluation note* Encounter Date Diagnosis Assessment Notes Treatment Notes Treatment Clinical Notes May, Peripheral polyneuropathy (ICD-10 - G62.9) Requests labs to r/o metabolic causes. May, Lumbar pain (ICD-10 - M54.50) Chronic lumbar pain. Agrees to start w xray. May, Paronychia, toe, lef t (ICD-10 - L03.032) Pt requests antibiotic at end of visit. Keep foot clean and dry. H2020 Other 08-31-2023 Evaluation note* Encounter Date Diagnosis [...] wedding planned the end of August 2023. H2020 Other 07-27-2023 Evaluation note* Encounter Date Diagnosis [...] it is not something that I prescribed. H2020 Other 07-06-2023 Evaluation note* Encounter Date Diagnosis Assessment Notes Treatment Notes Treatment Clinical Notes Jan, Easy bruisability (ICD-10 - R23.3) Pt will get labs today. Discussed possible link w the frequent NSAIDs Jan, Essential (primary) hypertension (ICD-10 - I10) Due for labs. Possible elevated glucose - nonfasting, had steroid pills and injections due to foot issues. She is seeing podiatry for plantar fasciitis. H2020 Other 07-06-2023 Evaluation note* Encounter Date Diagnosis [...] symptoms. Any developing patterns. Stay well hydrated. H2020 Other 05-31-2023 NotePROCEDURE: XR FOOT LT MIN [...] Electronically authenticated by: TIM TORREZ Date: 2022-12-13 08:39[facility]05-30-2023 Evaluation note* Encounter Date Diagnosis Assessment Notes Treatment Notes Treatment Clinical Notes November, Left foot pain (ICD-10 - M79.672) Discussed primary concern of stress fracture. Pt agrees to xray. Reviewed ortho notes. She is to followup there prn. H2020 Other 2023 Evaluation note* Encounter Date Diagnosis Assessment Notes Treatment Notes Treatment Clinical Notes Oct, History of total right knee replacement (ICD-10 - Z96.651) Oct, Primary osteoarthritis of both knees (ICD-10 - M17.0) Oct, Other [facility] at [facility] on 10/24/2021 Happy with surgical result [...] as needed basis for the left knee. H2020 Other 09-29-2022 Evaluation note* Encounter Date Diagnosis Assessment Notes Treatment Notes Treatment Clinical Notes Mar, Primary osteoarthritis of both knees (ICD-10 - M17.0) H2020 Other 08-22-2022 Evaluation note* Encounter Date Diagnosis [...] note writ ten by Richar Kruger LPN, [employer]. Edited and approved by Dr. Wayne Mccallum MD. H2020 Other 07-06-2022 Evaluation note* Encounter Date Diagnosis Assessment Notes Treatment Notes Treatment Clinical Notes Jan, Primary osteoarthritis of both knees (ICD-10 - M17.0) Jan, Aftercare following joint replacement surgery (ICD-10 - Z47.1) Jan, History of total right knee replacement (ICD-10 - Z96.651) Jan, Other [facility] at [facility] on 10/24/2021 Doing well Discussed post-op dental prophylaxis. Shared decision made to continue prophylactic antibiotics indefinitely. Follow-up at 1 year post-op for repeat examination and 2 view x-rays of the right knee. Patient instructed to call with any questions or concerns. H2020 Other 05-25-2022 Evaluation note* Encounter Date Diagnosis Assessment Notes Treatment Notes Treatment Clinical Notes November, Primary osteoarthritis of both knees (ICD-10 - M17.0) November, Aftercare following joint replacement surgery (ICD-10 - Z47.1) November, History of total right knee replacement (ICD-10 - Z96.651) November, Other [facility] at [facility] on 10/24/2021 Doing well Patient may continue activities as tolerated. Continue PT as recommended. Continue taking [id number] anti-inflammatori es as needed for assistance with swelling and pain associated with the operative extremity. Follow-up in 6 weeks for repeat examination and long standing x-rays. H2020 Other 05-04-2022 Evaluation note* Encounter Date Diagnosis [...] for 3 views of the right knee. H2020 Other 04-01-2022 Evaluation note* Encounter Date Diagnosis [...] patient could proceed with surgery safely. The loss control manager was vital for surgery timing and [...] plans. Prolonged services time spent: 37 minutes H2020 Other 04-01-2022 History general Narrative - Reported* Type Description Date Medical History hypertension Surgical History bilateral SANDRO Surgical History abdominal surgery Surgical History RT TKR 10/2021 Hospitalization History see above H2020 Other 04-01-2022 History general Narrative - Reported* Type Description Date Medical History hypertension Surgical History bilateral SANDRO Surgical History abdominal surgery Surgical History RT TKR 10/2021 Surgical History COLONOSCOPY Hospitalization History see above H2020 Other 04-01-2022 History general Narrative - Reported* Type Description Date Medical History hypertension Medical History Frozen shoulder Medical History Lumbar pain Surgical History bilateral SANDRO Surgical History abdominal surgery Surgical History RT TKR 10/2021 Surgical History COLONOSCOPY Hospitalization History see above H2020 Other 03-24-2022 Evaluation note* Encounter Date Diagnosis [...] rehab stay. Joints Meeting Checklist - Pharmacy: [facility] to bed - Approach/Technique: ZULLY - Implants: [...] elected to proceed with the above surgery. H2020 Other 03-01-2022 Evaluation note* Encounter Date Diagnosis [...] note writ ten by Richar Kruger LPN, [employer]. Edited and approved by Dr. Wayne Mccallum MD. [facility] Other 03-01-2022 Evaluation note* Encounter Date Diagnosis Assessment Notes Treatment Notes Treatment Clinical Notes Sep, Primary osteoarthritis of both knees (ICD-10 - M17.0) H2020 Other 01-25-2022 Evaluation note* Encounter Date Diagnosis Assessment Notes Treatment Notes Treatment Clinical Notes Jul, Primary osteoarthritis of both knees (ICD-10 - M17.0) H2020 Other 01-13-2022 Evaluation note* Encounter Date Diagnosis [...] note writ ten by Richar Kruger LPN, Fruit Tr[employer]. Edited and approved by Dr. Wayne Mccallum MD. [place] [facility] Other 10-28-2021 Evaluation note* Encounter Date Diagnosis [...] note writ ten by Nissa Murillo CMA, Fruit [employer]. Edited and approved by Dr. Wayne Mccallum MD. [facility] Other Evaluation noteNo assessment information available [facility] Work Phone: Evaluation noteNo [facility]Nort[facility] Other Evaluation note* Diagnosis Onset Date Resolution Status Right femoral vein DVT acute [facility] Work Phone: Evaluation note* Diagnosis Onset Date Resolution Status Essential (primary) hypertension acute Knee arthropathy acute Right femoral vein DVT acute PAD (peripheral artery disease) acute Primary osteoarthritis of left knee acute [facility] Work Phone: Evaluation note* Diagnosis Onset Date Resolution Status Essential (primary) hypertension acute Knee arthropathy acute Right femoral vein DVT acute PAD (peripheral artery disease) acute Primary osteoarthritis of left knee acute PAD (peripheral artery disease) acute Venous ulcer of left leg acu te [facility] Work Phone: History general Narrative - Reported* Type Description Date Medical History hypertension Surgical History bilateral SANDRO Surgical History abdominal surgery [facility] Other Hospital Discharge instructionsAmbulatory Orders* Referral to Wound Care Time Frame: 10/15/23, Location: None Selected [facility] Work Phone: Family History Relationship Condition Age at Onset [...] natural son Heart disease Unknown Advance Directives Advance Directive Response Recorded Date/ Time Advance Directives No November 29 12:37pm Advance Directive Response Recorded Date/ Time Advance Directives No November 29 1:37pm Summary Purpose Reason for Referral Reason evaluate and t reat Diagnosis 1 Lumbar pain (M54.50) [facility] Referring Provider First Name Ny Referring Provider Last Name Annabel Referring Provider Specialty Nurse Pract itioner Referred Organization [facility] Pain Managemen t [facility] [place] Referred Provider Wayne Mccallum Referred Address [address] [facility] Referred Provider Specialty Pain Medicin e Referral Priority Routine General Notes Eryn Reynoso 02:02:11 PM >received today, patient previously seen by Dr Mccallum (last visit Feb 2022) and is still considered established. sending p2p at this time for scheduling. Reason evaluate and t reat for peripheral vascular disease Diagnosis 1 Peripheral vascular disease (I73.9) Referral Organization [facility] Referring Provider First Name Ny Referring Provider Last Name Annabel Referring Provider Specialty Nurse Ana Lilia italinr Referred Organization [facility] Vascular Surge ry Referred Provider Willy Yancey Referred Address [address],[facility] [address],[place], [place],[address] Referred Provider Specialty Vascular Samantha piotr Referral Priority Routine General Notes Eryn Reynoso 02:08:33 PM >received today, p2p sent for scheduling Reason *Waiting for appt chronic lumbar - recent MRI Diagnosis 1 Lumbar pain (M54.50) Referral Organization [facility] Referring Provider First Name Vashti Referring Provider Last Name Amber Referring Provider Specialty Family Medi cine Referred Organization [facility] Spine Center Referred Provider Jose Clark Referred Address [address] ,[place], [place],[address] Referred Provider Specialty Neurological Surgery Referral Priority Routine General Notes Shira Gan 12:19:28 PM >received today, referral faxed P2P Chief Complaint and Reason for Visit Chief Complaint Legs Swelling 2 WEEK CHECK UP Reason for Visit Right femoral vein D VT Chief Complaint Legs Swelling 2 WEEK CHECK UP Referred by Ny Jin for PVD i73.9 OP SP LT KNEE PAIN REQUESTING INJECTION Reason for Visit Essential (primary) hypertension Knee arthropathy Right femoral vein DVT PAD (peripheral artery disease) Primary osteoarthritis of left knee Chief Complaint Legs Swelling 2 WEEK CHECK UP Referred by Ny Jin for PVD i73.9 OP SP LT KNEE PAIN REQUESTING INJECTION Wound on leg Reason for Visit Essential (primary) hypertension Knee arthropathy Right femoral vein DVT PAD (peripheral artery disease) Primary osteoarthritis of left knee PAD (peripheral artery disease) Venous ulcer of left leg Additional Source Comments REASON FOR VISIT (unrecogniz ed section and content) RECHECKRECHECKRXMEDICATION R EFILLNo InformationNo InformationH & P RIGHT TOTAL KNEE [id number] WK WOUND CHECKRecheck Right Knee6 WK RECHECKLT KNEE PAINrx requestmed refill1 YEAR, LT KNEE PAINLeft FootNo Informationfoot xrayNo Informationeasily bruisinglabsOP SP DISCUSS MEDSeasily bruisingREFILLOP SP LT KNEE PAIN WANTS INJECTIONRefillNo Informationrefilltingling/numbness in footxraylumbar MRIlabsVenous US Resultslegs swellingMed Refillchronic lumbarNeurosurgery office note Care Teams (unrecognized sec tion and content) Team Status: Active Member Role Status Dates Vashti Clark MD Primary Care Provider Active Team Status: Inactive Member Role Status Dates Vashti Clark MD Attending Provider Active St art: August 16, 2023 End: August 16, 2023 Team Status: Inactive Member Role Status Dates Vashti Clark MD Primary Care Provide r, Attending Provider Active Start: August 30, 2023 End: August 30, 2023 Team Status: Inactive Member Role Status Dates Vashti Clark MD Primary Care Provider Active Start: September 13, 2023 End: September 13, 2023 Willy Yancey MD Attending Provider Active Start: September 13, 2023 End: September 13, 2023 Ny Jin , IP/MOSAIC TECHNICIAN-C Referring Provider Active Start: September 13, 2023 End: September 13, 2023 Team Status: Inactive Member Role Status Dates Vashti Clark MD Primary Care Provider Active Start: September 13, 2023 End: September 13, 2023 Willy Yancey MD Attending Provider Active Start: September 13, 2023 End: September 13, 2023 Team Status: Inactive Member Role Status Dates Vashti Clark MD Primary Care Provider Active Start: October 04, 2023 End: October 04, 2023 Jose Najera II, MD Active Sta rt: October 04, 2023 End: October 04, 2023 GIOVANY CastroC Attending Provider Active Start: October 04, 2023 End: October 04, 2023 Team Status: Inactive Member Role Status Dates Vashti Clark MD Primary Care Provider Active Jose Najera II, MD Attending Provider Active Team Status: Active Member Role Status Dates Provider Conversion Attending Provider Active St art: June 27, 2023 Team Status: Inactive Member Role Status Dates Vashti Clark MD Primary Care Provide r, Attending Provider Active Start: October 15, 2023 End: October 15, 2023 Goals (unrecognized section and content) Goals may be documented in a n alternate section INFORMATION SOURCE (unrecogn ized section and content) DATE CREATED AUTHOR [facility]/22/2022 [facility] DATE CREATED AUTHOR AUTHOR'S ORGANIZ ATION 06/20/2023 [facility] EPIC DATE CREATED AUTHOR AUTHOR'S ORGANIZ ATION 09/16/2023 [facility] DATE CREATED AUTHOR AUTHOR'S ORGANIZ ATION 10/06/2023 [facility] FOR RECORDS PERTAINING TO PATIENTS WHO [...] BE BASED ON THE PRIMARY CLINICAL RECORDS. [facility] [employer] provides no warranty or guarantee of the accuracy or completeness of information in this document.
[2023-10-29 11:14] VITALS: BP 161/84; PULSE 77; TEMP 37.4; O2SAT 98
[2023-10-29] MEDS: BUPIVACAINE HCL 0.25% PF 25 MG/10 ML VIAL INJ (11:41)
[2023-10-29] MEDS: LIDOCAINE HCL 2% PF 100 MG/5 ML VIAL INJ (11:41)
--- NOTE | 2023-10-29 11:41 | P.ON_ITS ---
Date of procedure: 10/29/23 Pre-op diagnosis: Lumbar spondylosis without myelopathy Post-op diagnosis: same as pre-op Procedure: Procedure: Bilateral L4-5, L5-S1 medial branch block Medications: Bupivacaine 0.25% 6cc The patient was seen and examined in the preoperative holding area.? An informed consent was obtained and placed on the chart.? The patient was brought to the medical procedure unit and placed in the prone position.? A timeout was completed verifying correct patient, procedure site, positioning, plan, and special equipment.? Using aseptic technique, the needle was placed at left L4. Under direct fluoroscopic visualization a Quincke-tipped spinal needle was ad vanced to the junction of the superior articulating process with the transverse process at the designated medial branch segment.? Preceded by negative aspiration, the above-mentioned injectate was placed in 1 mL aliquots.? The procedure was repeated at left L5, S1.? The needle was removed and insertion site was covered. The same procedure, at the same levels, was completed on the right side. The patient was taken to the postprocedural recovery area and monitored for an appropriate length of time before found suitable for discharge in the company of a responsible adult. Anesthesia: Local Surgeon: Marc Nowak Pathology: none sent Condition: stable Disposition: no change
[2023-10-29 11:42] VITALS: PULSE 68; PULSE 69; O2SAT 95; O2SAT 96
== END 2023-10-29 11:48 | disposition home or self-care (01) ==
PROVIDERS: PCP Family Medicine; Visit Provider Anesthesiology
DX: M47.816 Spondylosis without myelopathy or radiculopathy, lumbar region (principal); I87.312 Chronic venous hypertension (idiopathic) with ulcer of left lower extremity; L97.822 Non-pressure chronic ulcer of other part of left lower leg with fat layer exposed
CPT/HCPCS: 11043; 64493; 64494; A6213; G0463

== ENCOUNTER 2023-10-29 15:26 | Outpatient (OUT) | payer MEDICARE, SELFPAY | END 2023-10-29 15:27 | disposition home or self-care (01) | LOC: WC 15:26 | PROVIDERS: PCP Family Medicine; Visit Provider Physician Assistant | DX: I87.312 Chronic venous hypertension (idiopathic) with ulcer of left lower extremity (principal); L97.822 Non-pressure chronic ulcer of other part of left lower leg with fat layer exposed | CPT/HCPCS: 11043; A6213; G0463 ==

== ENCOUNTER 2023-11-08 12:39 | Outpatient (OUT) | payer MEDICARE, SELFPAY ==
--- NOTE | 2023-11-08 12:46 | PM.CN ---
Consult Note: HPI Data of Consult Patient: known to practice within the last 3 years Consult date: 09/24/23 Requesting Physician: Amena Gutiérrez NP Primary Care Provider: Vashti Engle MD Consult Narrative Reason for consult: low back pain Narrative: 73yof who presents for evaluation. longstanding low back pain that is worsened with standing and ambulation. imaging shows severe facet arthropathy from l4-s1. also severe stenosis at l5-s1, more moderate at other lumbar levels. has engaged in >6 weeks of provider directed home exercise program, without benefit. uses diclofenac 75mg bid prn. denies adverse med side effects. Pain 4/10 increasing to 8/10 with walking lifting bending activity, pain improved with lying sitting and sleeping. Pt stopped gabapentin as it caused her to be clumsy and foggy. recently underwent bilateral L4-5 L5-S1 facet medial branch block #2 with >90% improvement in low back pain and functional ability for 2 hours. cc:: CC: Amena Gutiérrez NP Review of Systems ROS Status of ROS 10 or more systems reviewed and unremarkable except as noted in history and below Musculoskeletal Reports: back pain PFSH PFSH Medical History (Updated 10/01/23 @ 10:47 by Jeri Macias) Low back pain ?M54.50 - Low back pain, unspecified (ICD-10) Osteoarthritis ?M19.90 - Unspecified osteoarthritis, unspecified site (ICD-10) PAD (peripheral artery disease) ?I73.9 - Peripheral vascular disease, unspecified (ICD-10) Hiatal hernia ?K44.9 - Diaphragmatic hernia without obstruction or gangrene (ICD-10) Heartburn ?R12 - Heartburn (ICD-10) Hypertension ?I10 - Essential (primary) hypertension (ICD-10) Surgical History H/O exploratory laparotomy ?Z98.890 - Other specified postprocedural states (ICD-10) History of knee replacement ?Z96.659 - Presence of unspecified artificial knee joint (ICD-10) History of hip replacement ?Z96.649 - Presence of unspecified artificial hip joint (ICD-10) Meds Home Medications and Allergies Home Medications ?Medication ?Instructions ?Recorded ?Confirmed ?Type apixaban 5 mg tablet (Eliquis) mg 09/24/23 History atorvastatin 40 mg tablet mg 09/24/23 History diclofenac sodium 75 mg mg PO 09/24/23 History tablet,delayed release metoprolol succinate 100 mg mg PO 09/24/23 History tablet,extended release 24 hr verapamil 180 mg tablet,extended mg PO 09/24/23 History release Allergies Allergy/AdvReac Type Severity Reaction Status Date / Time No Known Drug Allergies Allergy Verified 10/29/23 11:13 Exam Narrative Exam Narrative: Psych-alert and oriented x 3. Attentive and appropriate, constitutionally normal, displays normal mood and affect per situation.? There are no obvious deficits in memory, reasoning, or intellect.? Skin-no obvious rashes, bruising, erythema noted to the patient's area of pain. Extremities- extremities are warm with minimal edema and palpable pulses. Lumbar-no significant tenderness to palpation noted in the lumbar spine and paraspinal musculature.? Pain is elicited with extension, and lateral rotation of the lumbar spine. Range of motion is slightly diminished with these motions due to pain. Facet loading maneuvers are positive bilaterally and do appear to be concordant with the patient's normal complaints of pain.? Coordination remains intact.? Gait remains non-antalgic. Constitutional Documenting provider has reviewed patient's vital signs: yes Common normals: no apparent distress, oriented x3, healthy appearing, alert and well nourished General appearance: cooperative [facility] Common normals: normocephalic, hearing grossly normal bilaterally and moist oral mucous membranes Head and scalp: normocephalic Eye Common normals: PERRL Pupil: PERRL Neck & C-Spine Common normals: full ROM General: normal visual inspection Chest Common normals: inspection of chest normal Respiratory Common normals: normal respiratory effort, no retractions and no use of accessory muscles Neuro Common normals: oriented x3, CN's II-XII intact bilaterally, moves all extremities, no focal motor deficits, no sensory deficits noted and deep tendon reflexes 2+ bilaterally Sensorium/orientation: alert Motor exam: strength 5/5 throughout and no movement abnormalities noted Psych Common normals: mental status grossly normal, thought process normal, cooperative, affect normal, speech normal and activity/motor behavior normal Speech: normal speech Thought process: normal thought process Results Additional Findings Additional findings: If on a controlled substance or opioids, I have checked an [place] report on this patient and there are no aberrancies noted in the prescribing history.??If on a controlled substance or opioid a drug screen was completed and reviewed within the last year, and if there has not been a drug screen completed we ordered one today to monitor higher risk, state monitored pain medication use. As part of providing excellent, safe, comprehensive care, the following was completed at our patient's visit: 1. A medication reconciliation and review to ensure accurate knowledge of current/active medications, including asking our patients to inform us about any [id number] medications or herbal remedies/nutritional supplements/alternative remedies. 2. A review to specifically ensure our patients have had annual screening for screening for depression, screening for tobacco use, and screening for unhealthy alcohol use. For concerning screenings had a discussion with the patient, provided patient education, and recommended follow-up with primary care provider when appropriate. If patient noted with a risk of falling, they received education on strength, gait, and balance training to prevent future risk of falling. Assessment and Plan Assessment and Plan (1) Lumbar spondylosis: Assessment and Plan: The patient has had over 3 months of moderate to severe low back pain with functional impairment and inadequate response to conservative care including NSAIDS (unless there are contraindication such as concurrent blood thinners), multiple oral or topical pain medications, and home exercise program/physical therapy.? Patient has completed >6 weeks of guided home exercise program and/or formal physical therapy program without relief of their symptoms.? I have reviewed the imaging of the lumbar spine and no red flags were identified.? The imaging reveals radiographic findings consistent with lumbar spondylosis? The Oswestry Disability Index was completed, and the patient scored a 38%.? The patient noted the following:?? pain prevents patient from standing more than 30 minutes, walking distances, impairs sleep, personal life social life, causes moderate to severe pain We discussed the risks and benefits of the procedure with the patient, and we are NOT planning on using sedation as outlined in the guidelines from Medicare unless there is a documented reason that sedation would be strongly recommended.?? The procedure will be completed with fluoroscopic guidance.? (2) Low back pain: Plan bilateral L4-5 L5-S1 facet medial branch RFA with 10mg PO valium prior to procedure f/u 1 month after RFA
== END 2023-11-08 12:40 | disposition home or self-care (01) ==
LOC: PM 12:39
PROVIDERS: PCP Family Medicine; Visit Provider Nurse Practitioner
DX: M47.816 Spondylosis without myelopathy or radiculopathy, lumbar region (principal); M54.50 Low back pain, unspecified
CPT/HCPCS: G0463

== ENCOUNTER 2023-11-19 08:32 | Day surgery (SDC) | payer MEDICARE, SELFPAY ==
[2023-11-19 08:48] VITALS: BP 160/85; PULSE 84; TEMP 36.8; O2SAT 100
--- OUTSIDE RECORDS SUMMARY | 2023-11-19 08:55 | XMS_ITS | CCD ---
Author Organization [facility] Care Team Providers Care Binding Folder Machine Name Role Phone Wayne Mccallum Unavailable Jose Najera II Unavailable MD Vashti Clark Primary Care Provider MD Jose Najera II Attending Provider [phone] DR VASHTI CLARK Attending Unavailable AMBER, DR VASHTI Porter Primary [...] Provider She MUJICA, Marc Tavares Attending Unavailable She MUJICA, Marc Tavares Attending Unavailable She MUJICA, Marc Tavares Attending Unavailable Allergies Allergy Classification Reported Allergen(s) Allergy Type Date of Onset Reaction(s) Facility (6 sources) patient allergy list reviewed by nurse or physicia Propensity to adverse reactions 5 Comment:Done [facility] Other (6 sources) Allergies Reconciled Propensity to adverse reactions Unknown [facility] Other Medications Current Medications Medication Drug Class(es) [...] 2:10pm docusate sodium 50 mg / sennosides, senior care 8.6 mg oral tablet (3 sources) Start: 10-06-2021 take 2 tablets by mouth every twenty-four hours Senokot S 8.6-50 MG 2 tablets Orally Once a day for 30 day(s) MED TO BED UPON DISCHARGE DOS:10/24/2021 Sep, Active famotidine 20 mg oral tablet (8 [...] PO Twice daily with meals 60 October 31, 2021 12:00am October 15, [...] Start: 10-06-2021 take 1 capsule by mo [facility] every twelve hours Cefadroxil 500 MG 1 [...] 5 MG PO Daily at bedtime 30 30 October 31, 2021 12:00am October 15, [...] 2:03pm Start: 10-06-2021 take 1 tablet by [facility] every four hours as needed for pain oxyCODONE HCl 5 MG 1 tablet as needed for pain Orally every 4 hrs for 10 days MED TO BED UPON DISCHARGE DOS:10/24/2021 Sep, Active polyethylene glycol 3350 89610 mg powder for oral solution (7 sources) [...] Start: 10-06-2021 take 1 tablet by therese every six hours as needed for pain [...] ity US ankle/arm indiceson US ankle/arm indices [facility] [place] [address] Ultrasound Report Signed Patient: Kami Fink MR#: [id number] [birth year] : 1950 Acct:[id number] Age/Sex: 73 / F ADM Date: 09/13/23 Loc: [facility] Room: Type: [facility] Attending Dr: Willy Yancey MD Ordering Provider: [...] Willy Yancey MD09/13/2023 2:37 PM Dictation Location: [place] [address] Tech: Marquita Carlos Transcribed By: DALILA 09/13/23 1437 Dictated By: Willy Yancey MD 09/13/23 1435 Signed By: 09/13/[address] [facility] XR knee RT 2Von 11-02-2022 XR knee RT 2V [facility] Main [place] [address] [place] [address] XRay Report Signed Patient: Kami Fink MR#: [id number] [birth year] : 1950 Acct:[id number] Age/Sex: 72 / F ADM Date: 11/02/22 Loc: [facility] Room: Type: [facility] Attending Dr: Jose Najera II, MD Copies to: Jose Najera MD Ordering Provider: oJse Najera MD Date of Service: 11/02/22 XR/XR knee RT 2V: History of total right knee replacement RIGHT KNEE - 2 views CLINICAL HISTORY: Follow-up right TKA COMPARISON: Right knee 01/18/2022 FINDINGS: No evidence of hardware complication or acute bony process. XR/XR knee RT 2V IMPRESSION: NO EVIDENCE OF HARDWARE COMPLICATION. Impression dictated by: Audie Mondragon Jr., DDragan11/02/2022 3:18 PM Dictation Location: [place] [address] Transcribed By: DALILA 11/02/22 1518 Dictated By: Audie Mondragon Jr, DO 11/02/22 1517 Signed By: 11/02/[address] [facility] XR knee RT 2V [facility] [employer] Other XR knee RT 2V [facility] Main [facility] [employer] Other XR knee RT 2V [address] [facility] [employer] Other XR knee [place] 2[place] [address] [facility] [employer] Other XR knee RT 2V [facility] knee RT 2V Signed [facility] Other XR knee RT 2V Patient: Krystle Fink MR#: [id number] [employer] Other XR knee RT 2V 31 [facility] Other XR knee RT 2V : 1950 Acct:[id number] [facility] Other XR knee RT 2V Age/Sex: 72 / F ADM Date: 11/02/22 [facility] Other XR knee RT 2V Loc: [facility] Room: Type : [facility] Other XR knee RT 2V Attending Dr: Jose Najera II, MD [facility] Other XR knee RT 2V Copies to: Jose Najera MD [facility] Other XR knee RT 2V Ordering Provider: Jose Najera MD [facility] Other XR knee RT 2V Date of Service: 11/02/22 [facility] Other XR knee RT 2V XR/XR knee RT 2V: History of total right knee replacement [facility] Other XR knee RT 2V RIGHT KNEE - 2 views N [employer] Other XR knee RT 2V CLINICAL HISTORY: Follow-up right TKA [employer] Other XR knee RT 2V COMPARISON: Right knee 01/18/2022 [facility] Other XR knee RT 2V FINDINGS: [facility] Other XR knee RT 2V No evidence of hardware complication or acute bony process. [facility] Other XR knee RT 2V XR/XR knee RT 2V [facility] Other XR knee RT 2V IMPRESSION: [employer] Other XR knee RT 2V NO EVIDENCE OF HARDWARE COMPLICATION. [facility] Other XR knee RT 2V Impression dictated by: Audie Mondragon Jr., D.OEdgard11/02/2022 3:18 PM [facility] Other XR knee RT 2V Dictation Location: [facility] Other XR knee RT 2V Transcribed By: PWS 11/02/22 [facility] [employer] Other XR knee RT 2V Dictated By: Audie Mondragon Jr DO 11/02/22 [facility] [employer] Other XR knee RT 2V Signed By: [facility] Other XR knee RT 2V 11/02/22 [facility] [employer] Other Vital Signs Date Time Vital Sign Value Performing Clinician Facility 10-15-2023 11:18-0400 Body height 161.29 cm MD Vashti Clark Work Phone: [facility] 10-15-2023 11:18-0400 Body mass index (BMI) [Ratio] 36.6 kg/m2 MD Vashti Clark Work Phone: [facility] 10-15-2023 11:18-0400 Body weight 95.36 kg MD Vashti Clark Work Phone: [facility] 10-15-2023 11:18-0400 Diastolic blood pressure 81 mm[Hg] MD Vashti Clark Work Phone: [facility] 10-15-2023 11:18-0400 Heart rate 77 /min MD Vashti Clark Work Phone: [facility] 10-15-2023 11:18-0400 Systolic blood pressure 142 mm[Hg] MD Vashti Clark Work Phone: [facility] 09-13-2023 11:54-0500 Body height 161.29 cm MD Vashti Clark Work Phone: [facility] 09-13-2023 11:54-0500 Body mass index (BMI) [Ratio] 37.8 kg/m2 MD Vashti Clark Work Phone: [facility] 09-13-2023 11:54-0500 Body temperature 97.6 [degF] MD Vashti Clark Work Phone: [facility] 09-13-2023 11:54-0500 Body weight 98.42 kg MD Vashti Clark Work Phone: [facility] 09-13-2023 11:54-0500 Diastolic blood pressure 82 mm[Hg] MD Vashti Clark Work Phone: [facility] 09-13-2023 11:54-0500 Heart rate 89 /min MD Vashti Clark Work Phone: [facility] 09-13-2023 11:54-0500 Respiratory rate 16 /min MD Vashti Clark Work Phone: [facility] 09-13-2023 11:54-0500 SaO2% (BldA) [Mass fraction] 99 % MD Vashti Clark Work Phone: [facility] 09-13-2023 11:54-0500 Systolic blood pressure 124 mm[Hg] MD Vashti Clark Work Phone: [facility] 08-30-2023 10:41-0500 Body height 161.29 cm [facility] 08-30-2023 10:41-0500 Body mass index (BMI) [Ratio] 37.8 kg/m2 [facility] 08-30-2023 10:41-0500 Body weight 98.42 kg [facility] 08-30-2023 10:41-0500 Diastolic blood pressure 81 mm[Hg] [facility] 08-30-2023 10:41-0500 Heart rate 87 /min [facility] 08-30-2023 10:41-0500 Systolic blood pressure 155 mm[Hg] [facility] 08-23-2023 09:20-0500 Body height 161.29 cm Ny Jin Other [employer] [facility] [employer] Other 08-23-2023 09:20-0500 Body mass index (BMI) [Ratio] 37.48 kg/m2 Ny Jin Other [facility] Other 08-23-2023 09:20-0500 Body weight 97.52 kg Ny Annabel Other [facility] Other 08-16-2023 10:00-0500 Body height 161.29 cm Vashti Clark Other [facility] 08-16-2023 10:00-0500 Body mass index (BMI) [Ratio] 37.83 kg/m2 Vashti Clark Other [facility] Other 08-16-2023 10:00-0500 Body weight 98.43 kg Vashti Clark Other [facility] Other 08-16-2023 10:00-0500 Body weight 98.42 kg [facility] 08-16-2023 10:00-0500 Diastolic blood pressure 81 mm[Hg] Vashti Clark Other [facility] 08-16-2023 10:00-0500 Systolic blood pressure 147 mm[Hg] Vashti Clark Other [facility] 05-29-2023 11:30-0500 Body height 161.29 cm Vashti Clark Other [facility] Other 05-29-2023 11:30-0500 Body mass index (BMI) [Ratio] 37.41 kg/m2 Vashti Clark Other [facility] Other 05-29-2023 11:30-0500 Body weight 97.34 kg Vashti Clark Other [facility] Other 05-29-2023 11:30-0500 Diastolic blood pressure 85 mm[Hg] Vashti Clark Other [facility] Other 05-29-2023 11:30-0500 Respiratory rate 16 /min Vashti Clark Other [facility] Other 05-29-2023 11:30-0500 Systolic blood pressure 174 mm[Hg] Vashti Clark Other [facility] Other 03-15-2023 08:45-0400 Body height 161.29 cm Jose Alexander II Other [employer] Other 03-15-2023 08:45-0400 Body mass index (BMI) [Ratio] 38.01 kg/m2 Jose Alexander II Other [facility] Other 03-15-2023 08:45-0400 Body weight 98.88 kg Jose Alexander II Other [facility] Other 01-18-2023 11:15-0400 Body height 161.29 cm Vashti Clark Other [facility] Other 01-18-2023 11:15-0400 Body mass index (BMI) [Ratio] 38.01 kg/m2 Vashti Clark Other [facility] Other 01-18-2023 11:15-0400 Body weight 98.88 kg Vashti Clark Other [facility] Other 01-18-2023 11:15-0400 Diastolic blood pressure 81 mm[Hg] Vashti Clark Other [facility] Other 01-18-2023 11:15-0400 Systolic blood pressure 167 mm[Hg] Vashti Clark Other [facility] Other 12-12-2022 13:45-0400 Body height 161.29 cm Vashti Clark Other [facility] Other 12-12-2022 13:45-0400 Body mass index (BMI) [Ratio] 37.48 kg/m2 Vashti Clark Other [facility] Other 12-12-2022 13:45-0400 Body weight 97.52 kg Vashti Clark Other [facility] Other 12-12-2022 13:45-0400 Diastolic blood pressure 59 mm[Hg] Vashti Clark Other [facility] Other 12-12-2022 13:45-0400 Systolic blood pressure 147 mm[Hg] Vashti Clark Other [facility] Other 11-02-2022 15:45-0400 Body height 167.64 cm Jose Najera II Other [facility] Other 12-07-2021 11:45-0400 Body height 167.64 cm Jose Alexander II Other [facility] Other 12-07-2021 11:45-0400 Body mass index (BMI) [Ratio] 34.7 kg/m2 Jose Alexander II Other [facility] Other 12-07-2021 11:45-0400 Body weight 97.52 kg Jose Alexander II Other [facility] Other 11-16-2021 11:45-0400 Body height 167.64 cm Jose Alexander II Other [facility] Other 11-16-2021 11:45-0400 Body mass index (BMI) [Ratio] 34.7 kg/m2 Jose Alexander II Other [facility] Other 11-16-2021 11:45-0400 Body weight 97.52 kg Jose Alexander II Other [employer] Other 10-06-2021 16:00-0400 Body height 167.64 cm Jose Alexander II Other [facility] Other 10-06-2021 16:00-0400 Body mass index (BMI) [Ratio] 34.7 kg/m2 Jose Alexander II Other [facility] Other 10-06-2021 16:00-0400 Body weight 97.52 kg Jose Reinaldo II Other [facility] Other 09-13-2021 16:15-0500 Body height 167.64 cm Wayne Mccallum Other [facility] Other 09-13-2021 16:15-0500 Body mass index (BMI) [Ratio] 34.7 kg/m2 Wayne Mccallum Other [facility] [employer] Other 09-13-2021 16:15-0500 Body weight 97.52 kg Wayne Mccallum Other [facility] [employer] Other Encounters Encounter Date Encounter Type Care Provider Facility Start: 10-29-2023 End: 10-30-2023 ambulatory Marc Nowak MD Facility: [place] Start: 10-15-2023 End: 10-15-2023 ambulatory MD Vashti Clark Work Phone: [facility] Work Phone: Start: 10-15-2023 End: 10-15-2023 Patient encounter procedure MD Vashti Clark Work Phone: [facility] Work Phone: Start: 10-04-2023 End: 10-04-2023 ambulatory MD Vashti Clark Work Phone: [facility] Work Phone: Start: 10-04-2023 End: 10-04-2023 Patient encounter procedure MD Vashti Clark Work Phone: [facility] Work Phone: Start: 10-01-2023 End: 10-02-2023 ambulatory Marc Nowak MD Facility:[facility] Start: 09-24-2023 End: 09-25-2023 ambulatory Marc Nowak MD Facility:[facility] Start: 09-13-2023 End: 09-13-2023 ambulatory Willy Yancey Facility:[facility] Start: 09-13-2023 End: 09-13-2023 Patient encounter procedure MD Vashti Clark Work Phone: [facility] Start: 09-13-2023 End: 09-13-2023 Patient encounter procedure MD Vashti Clark Work Phone: [facility] V[facility] Surgery Work Phone: Start: 08-30-2023 End: 08-30-2023 ambulatory [facility] Work Phone: Start: 08-30-2023 End: 08-30-2023 Patient encounter procedure [facility] Work Phone: Start: 08-27-2023 End: 08-27-2023 ambulatory Ny Jin Other [facility] Other Start: 08-27-2023 Telephone encounter Ny Jin [facility] [employer] Start: 08-23-2023 End: 08-23-2023 ambulatory Ny Jin Other [facility] Other Start: 08-23-2023 Office outpatient ne w 45 minutes Ny Jin [facility] [place] [facility] Start: 08-16-2023 End: 08-16-2023 ambulatory Vashti Clark Other [facility] Other Start: 08-16-2023 Office outpatient vi sit 15 minutes Vashti Clark [facility] Start: 08-16-2023 Telephone encounter Vashti Clark [facility] Start: 08-16-2023 End: 08-16-2023 Patient encounter procedure [facility]- Start: 08-13-2023 End: 08-13-2023 ambulatory Jose Reinaldo II Other [facility] Other Start: 08-13-2023 Telephone encounter Jose Najera II [facility] Start: 07-03-2023 End: 07-03-2023 ambulatory Vashti Clark Other [facility] Other Start: 07-03-2023 Telephone encounter Vashti Clark [facility] Start: 06-27-2023 Patient encounter procedure [facility]- Start: 06-18-2023 End: 06-18-2023 ambulatory ANABELLA FRANKCE Not Available Start: 06-11-2023 End: 06-11-2023 ambulatory Vashti Clark Other [facility] Other Start: 06-11-2023 Telephone encounter Vashti Clark [facility] Start: 06-01-2023 End: 06-01-2023 ambulatory ANABELLA STEWART Not Available Start: 05-29-2023 End: 05-29-2023 ambulatory Vashti Clark Other [facility] Other Start: 05-29-2023 Office outpatient vi sit 15 minutes Vashti Clark [facility] Start: 05-29-2023 Telephone encounter Vashti Clark [facility] Start: 05-14-2023 End: 05-14-2023 ambulatory Jose Reinaldo II Other [facility] Other Start: 05-14-2023 Telephone encounter Jose Alexander II [facility] Start: 04-02-2023 End: 04-02-2023 ambulatory Vashti Clark Other [facility] Other Start: 04-02-2023 Telephone encounter Vashti Clark [facility] Start: 03-15-2023 End: 03-15-2023 ambulatory Jose Alexander II Other [facility] Other Start: 03-15-2023 Office outpatient vi sit 25 minutes Jose Reinaldo II [facility] Start: 02-26-2023 End: 02-26-2023 ambulatory Vashti Clark Other [facility] Other Start: 02-26-2023 Telephone encounter Vashti Clark [facility] Start: 02-08-2023 End: 02-08-2023 ambulatory Jose Alexander II Other [facility] Other Start: 02-08-2023 Office outpatient vi sit 25 minutes Jose Alexander II [facility] Start: 01-19-2023 End: 01-19-2023 ambulatory Vashti Clark Other [facility] Other Start: 01-19-2023 Telephone encounter Vashti Clark [facility] Start: 01-18-2023 End: 01-18-2023 ambulatory Vashti Clark Other [facility] Other Start: 01-18-2023 Office outpatient vi sit 15 minutes Vashti Clark [facility] Start: 01-17-2023 End: 01-17-2023 ambulatory Jose Najera II Other [facility] Other Start: 01-17-2023 Telephone encounter Jose Reinaldo II [facility] Start: 12-13-2022 End: 12-13-2022 ambulatory Vashti Clark Other [facility] Other Start: 12-13-2022 Telephone encounter Jose Peñale II [facility] Start: 12-12-2022 End: 12-13-[address] VASHTI CLARK Facility: Start: 12-12-2022 Office outpatient vi sit 15 minutes Vashti Clark [facility] Start: 11-02-2022 End: 11-02-2022 ambulatory Jose Peñale II [facility] Other Start: 11-02-2022 Office outpatient vi sit 25 minutes Jose Alexander II [facility] Start: 10-10-2022 End: 10-10-2022 ambulatory Jose De Andaisle II Other [facility] Other Start: 10-10-2022 Telephone encounter Jose Alexander II [facility] Start: 06-23-2022 End: 06-23-2022 ambulatory MD Vashti Clark Work Phone: [facility] Work Phone: Start: 06-23-2022 End: 06-23-2022 Patient encounter procedure MD Vashti Clark Work Phone: [facility] Start: 04-13-2022 End: 04-13-2022 ambulatory Jose Alexander II Other [facility] Other Start: 04-13-2022 Telephone encounter Jose Reinaldo II [facility] Start: 03-06-2022 End: 03-06-2022 ambulatory Wayne Mccallum Other [facility] Other Start: 03-06-2022 Office outpatient vi sit 15 minutes Wayne Mccallum [facility] Start: 01-18-2022 (Post-Op) Post-Op Jose Reinaldo II [facility] Start: 01-18-2022 End: 01-18-2022 ambulatory Jose Alexander II Other [facility] Other Start: 12-07-2021 (Post-Op) Post-Op Jose Reinaldo II [facility] Start: 12-07-2021 End: 12-07-2021 ambulatory Jose Alexander II Other [facility] Other Start: 11-21-2021 Pre-procedure evaluation check Jose Alexander II Other [facility] Other Start: 11-16-2021 End: 11-16-2021 ambulatory Jose Alexander II Other [facility] Other Start: 11-16-2021 Office outpatient vi sit 15 minutes Jose Alexander II [facility] Start: 10-14-2021 (Prolonged) Prolonge d Services Jose Alexander II [facility] Start: 10-14-2021 End: 10-14-2021 ambulatory Jose Alexander II Other [facility] Other Start: 10-06-2021 End: 10-06-2021 ambulatory Jose Najera II Other [facility] Other Start: 10-06-2021 Office outpatient vi sit 25 minutes Jose Najera II [facility] Start: 09-13-2021 End: 09-13-2021 ambulatory Jose Najera II Other [facility] Other Start: 09-13-2021 Office outpatient vi sit 25 minutes Wayne Mccallum [facility] Start: 09-13-2021 Telephone encounter Jose Najera II [facility] Start: 08-09-2021 End: 08-09-2021 ambulatory Wayne Mccallum Other [facility] Other Start: 08-09-2021 Telephone encounter Wayne Mccallum [facility] Start: 07-28-2021 End: 07-28-2021 ambulatory Wayne Mccallum Other [facility] Other Start: 07-28-2021 Office outpatient vi sit 15 minutes Wayne Mccallum [facility] Start: 06-27-2021 Adult health examination Jose Najera II Other [facility] Other Start: 05-12-2021 Office outpatient vi sit 15 minutes Wayne Mccallum [facility] Procedures Date Procedure Procedure Detail Performing Clinician [...] for malign ant neoplasm of breast Jose Reinaldo WAGNER Other Plan of Treatment Date Care Activity Detail Author Start: 10-15-2023 Patient referral [facility] Work Phone: Patient referral [facility] Work Phone: Immunizations Immunization Date Immunization Notes Care Provider Vincenzo sandoval 05-29-2023 influenza virus vaccine, unspecified formulation [facility] 05-29-2023 influenza, high dose seasonal, preservative-free Vashti Clark Other [facility] [employer] Other 04-11-2021 COVID-19 mRNA Comirnatwinter (Pfizer) MD Vashti Clark Work Phone: [facility] 09-07-2020 COVID-19 mRNA Comirnatwinter (Pfizer) MD Vashti Clark Work Phone: [facility] 08-17-2020 COVID-19 mRNA, Comirnaty (Pfizer) MD Vashti Clark Work Phone: [facility] 05-24-2020 Kenalog -40 mg Wayne Mccallum Other [facility] [employer] Other 03-31-2020 influenza virus vaccine, split virus (incl. purified surface antigen) Jose Najera II Other [facility] [employer] Other 03-31-2020 influenza virus vaccine, unspecified formulation [facility] 08-11-2019 Kenalog -40 mg Wayne Mccallum Other [employer] Other 11-04-2018 Kenalog -40 mg Wayne Mccallum Other [facility] Other 03-19-2018 Supartz Wayne Mccallum Other [employer] Other 03-12-2018 Theraputic Injection Wayne Mccallum Other [facility] Other 03-05-2018 Daya Mccallum Other [facility] Other 02-26-2018 Daya Mccallum Other [employer] Other 02-19-2018 Daya Mccallum Other [facility] Other 11-27-2017 Kenalog -40 mg Wayne Mccallum Other [facility] Other 05-31-2016 influenza virus vaccine, split virus (incl. purified surface antigen) Jose Reinaldo II Other [employer] Other 05-31-2016 influenza virus vaccine, unspecified formulation [facility] 05-31-2016 pneumococcal polysaccharide vaccine, 23 valent Jose Alexander II Other [facility] Payers Date Payer Category Payer Medicare 2023 Unknown 2022 Self-pay [id number] 1961 Medicare [id number] 2.1 [id number] 1961 Unknown [id number] 2.1 [id number] 1950 Unknown [id number] 2.16.84 [id number] 1950 Unknown [id number] 2.16.840 .[id number] 1950 Unknown [id number] 2.16.840 .[id number] 1950 Unknown [id number] 2.16. [id number] 1950 Unknown [id number] 2.16. [id number] 1950 Unknown [id number] 2.16. [id number] Unknown Karen BC/JM [id number] Unknown [id number] 2.16.8 [id number] Unknown [id number] 2.16.8 [id number] Social History Date Type Detail Facility Unknown if ever smoked [employer] Other Sex Assigned At Sex Assigned At Bir th [facility] Other Start: 10-26-2021 End: 10-26-2021 Tobacco smoking status NHIS Never smoked tobacco (finding) [facility] Start: 1950 Sex Assigned At Female F [facility] Medical Equipment Procedure Code Equipment Code Equipment Origin al Text Equipment Identifier Dates Arthroplasty, knee, total, minimally invasive Orthopaedic cement, non-medicated [id number] FDA Start: 10-24-2021 Arthroplasty, knee, total, minimally invasive Uncoated knee femur prosthesis, metallic [id number] FDA Start: 10-24-2021 Arthroplasty, knee, total, minimally invasive Tibial insert ()[id number] FDA Start: 10-24-2021 Arthroplasty, knee, total, minimally invasive Polyethylene patella prosthesis ()[id number] FDA Start: 10-24-2021 Arthroplasty, knee, total, minimally invasive Knee stem ()[id number] FDA Start: 10-24-2021 Arthroplasty, knee, total, minimally invasive Uncoated knee tibia prosthesis, metallic ()[id number] FDA Start: 10-24-2021 Clinical Notes 05-12-2021 to [...] Aug, Lower extremity edema (ICD-10 - R60.0) [facility] Other 02-01-2024 Evaluation note* Encounter Date Diagnosis Assessment Notes Treatment Notes Treatment Clinical Notes Aug, Leg edema, right (ICD-10 - R60.0) Check US today, discussed other possibilities but r/o DVT first. [facility] Other 12-19-2023 Evaluation note* Encounter Date Diagnosis Assessment Notes Treatment Notes Treatment Clinical Notes Jun, Lumbar pain (ICD-10 - M54.50) [facility] Other 11-27-2023 Evaluation note* Encounter Date Diagnosis Assessment Notes Treatment Notes Treatment Clinical Notes May, DDD (degenerative disc disease), lumbar (ICD-10 - M51.36) [facility] Other 11-14-2023 Evaluation note* Encounter Date Diagnosis Assessment Notes Treatment Notes Treatment Clinical Notes May, Peripheral polyneuropathy (ICD-10 - G62.9) Requests labs to r/o metabolic causes. May, Lumbar pain (ICD-10 - M54.50) Chronic lumbar pain. Agrees to start w xray. May, Paronychia, toe, lef t (ICD-10 - L03.032) Pt requests antibiotic at end of visit. Keep foot clean and dry. [facility] Other 08-31-2023 Evaluation note* Encounter Date Diagnosis [...] wedding planned the end of August 2023. [facility] Other 07-27-2023 Evaluation note* Encounter Date Diagnosis [...] it is not something that I prescribed. [facility] Other 07-06-2023 Evaluation note* Encounter Date Diagnosis Assessment Notes Treatment Notes Treatment Clinical Notes Jan, Easy bruisability (ICD-10 - R23.3) Pt will get labs today. Discussed possible link w the frequent NSAIDs Jan, Essential (primary) hypertension (ICD-10 - I10) Due for labs. Possible elevated glucose - nonfasting, had steroid pills and injections due to foot issues. She is seeing podiatry for plantar fasciitis. [facility] Other 07-06-2023 Evaluation note* Encounter Date Diagnosis [...] symptoms. Any developing patterns. Stay well hydrated. [facility] Other 05-31-2023 NotePROCEDURE: XR FOOT LT MIN [...] Electronically authenticated by: TIM TORREZ Date: 2022-12-13 08:39[facility]05-30-2023 Evaluation note* Encounter Date Diagnosis Assessment Notes Treatment Notes Treatment Clinical Notes November, Left foot pain (ICD-10 - M79.672) Discussed primary concern of stress fracture. Pt agrees to xray. Reviewed ortho notes. She is to followup there prn. [facility] Other 2023 Evaluation note* Encounter Date Diagnosis Assessment Notes Treatment Notes Treatment Clinical Notes Oct, History of total right knee replacement (ICD-10 - Z96.651) Oct, Primary osteoarthritis of both knees (ICD-10 - M17.0) Oct, Other [facility] at [facility] on 10/24/2021 Happy with surgical result [...] as needed basis for the left knee. [facility] Other 09-29-2022 Evaluation note* Encounter Date Diagnosis Assessment Notes Treatment Notes Treatment Clinical Notes Mar, Primary osteoarthritis of both knees (ICD-10 - M17.0) [facility] Other 08-22-2022 Evaluation note* Encounter Date Diagnosis [...] note writ ten by Richar Kruger LPN, Salvage Machine Operator. Edited and approved by Dr. Wayne Mccallum MD. [facility] Other 07-06-2022 Evaluation note* Encounter Date Diagnosis Assessment Notes Treatment Notes Treatment Clinical Notes Jan, Primary osteoarthritis of both knees (ICD-10 - M17.0) Jan, Aftercare following joint replacement surgery (ICD-10 - Z47.1) Jan, History of total right knee replacement (ICD-10 - Z96.651) Jan, Other [facility] at [facility] on 10/24/2021 Doing well Discussed post-op dental prophylaxis. Shared decision made to continue prophylactic antibiotics indefinitely. Follow-up at 1 year post-op for repeat examination and 2 view x-rays of the right knee. Patient instructed to call with any questions or concerns. [facility] Other 05-25-2022 Evaluation note* Encounter Date Diagnosis Assessment Notes Treatment Notes Treatment Clinical Notes November, Primary osteoarthritis of both knees (ICD-10 - M17.0) November, Aftercare following joint replacement surgery (ICD-10 - Z47.1) November, History of total right knee replacement (ICD-10 - Z96.651) November, Other [facility] at [facility] on 10/24/2021 Doing well Patient may continue activities as tolerated. Continue PT as recommended. Continue taking kttz-bbn-hgmwgse anti-inflammatori es as needed for assistance with swelling and pain associated with the operative extremity. Follow-up in 6 weeks for repeat examination and long standing x-rays. [facility] Other 05-04-2022 Evaluation note* Encounter Date Diagnosis [...] for 3 views of the right knee. [facility] Other 04-01-2022 Evaluation note* Encounter Date Diagnosis [...] patient could proceed with surgery safely. The fire investigation manager was vital for surgery timing and [...] plans. Prolonged services time spent: 37 minutes [facility] Other 04-01-2022 History general Narrative - Reported* Type Description Date Medical History hypertension Surgical History bilateral SANDRO Surgical History abdominal surgery Surgical History RT TKR 10/2021 Hospitalization History see above [facility] Other 04-01-2022 History general Narrative - Reported* Type Description Date Medical History hypertension Surgical History bilateral SANDRO Surgical History abdominal surgery Surgical History RT TKR 10/2021 Surgical History COLONOSCOPY Hospitalization History see above [facility] Other 04-01-2022 History general Narrative - Reported* Type Description Date Medical History hypertension Medical History Frozen shoulder Medical History Lumbar pain Surgical History bilateral SANDRO Surgical History abdominal surgery Surgical History RT TKR 10/2021 Surgical History COLONOSCOPY Hospitalization History see above [facility] Other 03-24-2022 Evaluation note* Encounter Date Diagnosis [...] rehab stay. Joints Meeting Checklist - Pharmacy: [facility] med to bed - Approach/Technique: ZULLY - [...] elected to proceed with the above surgery. [facility] Other 03-01-2022 Evaluation note* Encounter Date Diagnosis [...] note writ ten by Richar Kruger LPN, Salvage Machine Operator. Edited and approved by Dr. Wayne Mccallum MD. [facility] Other 03-01-2022 Evaluation note* Encounter Date Diagnosis Assessment Notes Treatment Notes Treatment Clinical Notes Sep, Primary osteoarthritis of both knees (ICD-10 - M17.0) [facility] Other 01-25-2022 Evaluation note* Encounter Date Diagnosis Assessment Notes Treatment Notes Treatment Clinical Notes Jul, Primary osteoarthritis of both knees (ICD-10 - M17.0) [facility] Other 01-13-2022 Evaluation note* Encounter Date Diagnosis [...] note writ ten by Richar Kruger LPN, Salvage Machine Operator. Edited and approved by Dr. Wayne Mccallum MD. [facility] [employer] Other 10-28-2021 Evaluation note* Encounter Date Diagnosis [...] note writ ten by Nissa Murillo CMA, Salvage Machine Operator. Edited and approved by Dr. Wayne Mccallum MD. [facility] [employer] Other Evaluation noteNo assessment information available [facility] Work Phone: Evaluation noteNo InformationNortShrin[facility] [employer] Other Evaluation note* Diagnosis Onset Date Resolution Status Right femoral vein DVT acute [facility] Work Phone: Evaluation note* Diagnosis Onset Date Resolution Status Essential (primary) hypertension acute Knee arthropathy acute Right femoral vein DVT acute PAD (peripheral artery disease) acute Primary osteoarthritis of left knee acute [facility] Work Phone: Evaluation note* Diagnosis Onset Date Resolution Status Essential (primary) hypertension acute Knee arthropathy acute Right femoral vein DVT acute PAD (peripheral artery disease) acute Primary osteoarthritis of left knee acute PAD (peripheral artery disease) acute Venous ulcer of left leg acu te [facility] Work Phone: History general Narrative - Reported* Type Description Date Medical History hypertension Surgical History bilateral SANDRO Surgical History abdominal surgery [facility] [employer] Other Hospital Discharge instructionsAmbulatory Orders* Referral to Wound Care Time Frame: 10/15/23, Location: None Selected [facility] Work Phone: Family History No Family History Records Found [...] Diagnosis 1 Lumbar pain (M54.50) Referral Organization [facility] Referring Provider First Name Ny Referring Provider Last Name Annabel Referring Provider Specialty Nurse Ana Lilia stevens Referred Organization [facility] Pain Managemen t Bone Eyak Referred Provider Wayne Mccallum Referred Address [address] [place] [employer] [place],[address] Referred Provider Specialty Pain Medicin e Referral Priority Routine General Notes Eryn Reynoso 02:02:11 PM >received today, patient previously seen by Dr Mccallum (last visit Feb 2022) and is still considered established. sending p2p at this time for scheduling. Reason evaluate and t reat for peripheral vascular disease Diagnosis 1 Peripheral vascular disease (I73.9) Referral Organization [facility] Referring Provider First Name Ny Referring Provider Last Name Annabel Referring Provider Specialty Nurse Practesha stevens Referred Organization [facility] Vascular Surge ry Referred Provider Willy Yancey Referred Address [address] [place] [address],[place],[phone] Referred Provider Specialty Vascular Samantha piotr Referral Priority Routine General Notes Eryn Reynoso 02:08:33 PM >received today, p2p sent for scheduling Reason *Waiting for appt chronic lumbar - recent MRI Diagnosis 1 Lumbar pain (M54.50) Referral Organization [facility] Referring Provider First Name Vashti Referring Provider Last Name Amber Referring Provider Specialty Family Medi cine Referred Organization [facility] Spine Center Referred Provider Jose Clark Referred Address [address],[address] Referred Provider Specialty Neurological Surgery Referral Priority [...] InformationNo InformationH & P RIGHT TOTAL KNEE [id number] WK WOUND CHECKRecheck Right Knee6 WK RECHECKLT [...] 2023 End: September 13, 2023 Ny Jin NP-C Referring Provider Active Start: September 13, 2023 [...] October 04, 2023 End: October 04, 2023 NORA Castro Attending Provider Active Start: October 04, 2023 [...] and content) DATE CREATED AUTHOR 12/22/2022 [facility] DATE CREATED AUTHOR AUTHOR'S ORGANIZ ATION 06/20/2023 [facility] DATE CREATED AUTHOR AUTHOR'S ORGANIZ ATION 09/16/2023 [facility] DATE CREATED AUTHOR AUTHOR'S ORGANIZ ATION 11/07/2023 [facility] FOR RECORDS PERTAINING TO PATIENTS WHO ARE [...] BE BASED ON THE PRIMARY CLINICAL RECORDS. [facility]. provides no warranty or guarantee of the accuracy or completeness of information in this document.
[2023-11-19 09:16] VITALS: BP 136/73; PULSE 74; O2SAT 95
[2023-11-19 09:23] VITALS: BP 164/71; PULSE 66; O2SAT 92
[2023-11-19] MEDS: LIDOCAINE HCL 2% 400 MG/20 ML MDV 12 ML INJ (09:27)
[2023-11-19] MEDS: BUPIVACAINE HCL 0.25% PF 25 MG/10 ML VIAL 4 ML INJ (09:27)
[2023-11-19] MEDS: TRIAMCINOLONE ACETONIDE 40 MG/ML VIAL 80 MG INJ (09:28)
--- NOTE | 2023-11-19 09:37 | P.ON_ITS ---
Date of procedure: 11/19/23 Pre-op diagnosis: Lumbar spondylosis Post-op diagnosis: same as pre-op Procedure: Procedure: Bilateral L4-5, L5-S1 radiofrequency ablation Medications: Bupivacaine 0.25% 6cc, lidocaine 2% 5cc, kenalog 80mg The patient was seen and examined in the preoperative holding area.? The site was marked.? Written informed consent was obtained and placed on the chart.? The patient was brought to the medical procedure unit and placed in the prone position.? A timeout was completed verifying correct patient, procedure, positioning, and special requirements.? The skin overlying the target points, the designated medial branch, were prepped and draped in the usual sterile fashion.? The target point was achieved with a 20-gauge 15 cm with a 10 mm curved active tip radiofrequency cannula under direct fluoroscopic visualization.? The needle was inserted at level L4 on the right side. Needle tip position was confirmed with lateral fluoroscopic position.? Motor stimulation was carried out at 2 Hz up to 5 volts with the absence of extremity activity.? This was repeated at level L5, S1 on right side.?? Sensory stimulation was carried out.? Concordant pain was realized at the above- mentioned sites.? Then radiofrequency lesioning was carried out times 90 seconds at 80 degrees times 2 lesions at each level.? The radiofrequency probe was removed prior to cannula removal.? The above-mentioned injectate was placed in 1 mL increments.? The needle was removed. The same procedure, with the same steps, was then completed on the left side at the same levels. Insertion sites were covered.? The patient was taken to the postoperative recovery area and monitored for an appropriate length of time before being found suitable for discharge in the company of a responsible adult. Anesthesia: Local Surgeon: Marc Nowak Pathology: none sent Condition: stable Disposition: no change
== END 2023-11-19 09:37 | disposition home or self-care (01) ==
PROVIDERS: PCP Family Medicine; Visit Provider Anesthesiology
DX: M47.816 Spondylosis without myelopathy or radiculopathy, lumbar region (principal)
CPT/HCPCS: 64635; 64636

== ENCOUNTER 2023-11-27 15:57 | Outpatient (OUT) | payer MEDICARE, SELFPAY | END 2023-11-27 15:58 | disposition home or self-care (01) | LOC: WC 15:58 | PROVIDERS: PCP Family Medicine; Visit Provider Podiatrist Foot & Ankle Surgery | DX: I87.312 Chronic venous hypertension (idiopathic) with ulcer of left lower extremity (principal); L97.822 Non-pressure chronic ulcer of other part of left lower leg with fat layer exposed | CPT/HCPCS: 11042 ==

== ENCOUNTER 2023-12-26 10:50 | Outpatient (OUT) | payer MEDICARE, SELFPAY ==
--- NOTE | 2023-12-26 11:12 | P.CN_ITS ---
Consult Note: HPI Data of Consult Patient: known to practice within the last 3 years Consult date: 09/24/23 Requesting Physician: Amena Gutiérrez NP Primary Care Provider: Vashti Engle MD Consult Narrative Reason for consult: low back pain Narrative: 73yof who presents for evaluation. longstanding low back pain that is worsened with standing and ambulation. imaging shows severe facet arthropathy from l4-s1. also severe stenosis at l5-s1, more moderate at other lumbar levels. has engaged in >6 weeks of provider directed home exercise program, without benefit. has failed to benefit from acetaminophen. uses diclofenac 75mg bid prn. denies adverse med side effects. Pain 1/10 increasing to 3/10 with walking lifting bending activity, pain improved with lying sitting and sleeping. Pt stopped gabapentin as it caused her to be clumsy and foggy. recently underwent bilateral L4-5 L5-S1 thermal RFA with 80% improvement in pain ongoing. Patient would like to discuss left knee pain as she has OA requiring surgical intervention but is not a surgical candidate at this time. Dr Najera recommended genicular nerve blocks working towards thermal RFA for chronic left knee pain. Patient has recently had a fall with injury to left knee. Left knee pain 8/10 currently, increasing to 10/10 with weight bearing. Recent fall to left knee. patient now utilizing WC, continues to utilize walker. cc:: CC: Amena Gutiérrez NP Review of Systems ROS Status of ROS 10 or more systems reviewed and unremark able except as noted in history and below Musculoskeletal Reports: joint pain PFSH PFSH Medical History (Updated 12/26/23 @ 11:23 by Amena Gutiérrez NP) Low back pain ?M54.50 - Low back pain, unspecified (ICD-10) Osteoarthritis ?M19.90 - Unspecified osteoarthritis, unspecified site (ICD-10) PAD (peripheral artery disease) ?I73.9 - Peripheral vascular disease, unspecified (ICD-10) Hiatal hernia ?K44.9 - Diaphragmatic hernia without obstruction or gangrene (ICD-10) Heartburn ?R12 - Heartburn (ICD-10) Hypertension ?I10 - Essential (primary) hypertension (ICD-10) Surgical History H/O exploratory laparotomy ?Z98.890 - Other specified postprocedural states (ICD-10) History of knee replacement ?Z96.659 - Presence of unspecified artificial knee joint (ICD-10) History of hip replacement ?Z96.649 - Presence of unspecified artificial hip joint (ICD-10) Meds Home Medications and Allergies Home Medications ?Medication ?Instructions ?Recorded ?Confirmed ?Type apixaban 5 mg tablet (Eliquis) mg 09/24/23 History atorvastatin 40 mg tablet mg 09/24/23 History diclofenac sodium 75 mg mg PO 09/24/23 History tablet,delayed release metoprolol succinate 100 mg mg PO 09/24/23 History tablet,extended release 24 hr verapamil 180 mg tablet,extended mg PO 09/24/23 History release Allergies Allergy/AdvReac Type Severity Reaction Status Date / Time No Known Drug Allergies Allergy Verified 11/19/23 08:54 Exam Constitutional Documenting provider has reviewed patient's vital signs: yes Common normals: no apparent distress, oriented x3, healthy appearing, alert and well nourished General appearance: cooperative HENMT Common normals: normocephalic, hearing grossly normal bilaterally and moist oral mucous membranes Head and scalp: normocephalic Eye Common normals: PERRL Pupil: PERRL Neck & C-Spine Common normals: full ROM General: normal visual inspection Chest Common normals: inspection of chest normal Respiratory Common normals: normal respiratory effort, no retractions and no use of accessory muscles Back & Pelvis Lumbar spine/lower back: normal to inspection, lumbar ROM normal and straight leg raise negative bilaterally Extremity Left lower extremity: knee joint Other: left knee enlarged diameter, crepitus on exam, moderate edema, bruising noted to left lateral knee from fall. pain with medial and lateral stress testing, no instability noted. Neuro Common normals: oriented x3, CN's II-XII intact bilaterally, moves all extremities, no focal motor deficits, no sensory deficits noted and deep tendon reflexes 2+ bilaterally Sensorium/orientation: alert Gait (neuro): assistive device used other (wc) Motor exam: strength 5/5 throughout and no movement abnormalities noted Psych Common normals: mental status grossly normal, thought process normal, cooperative, affect normal, speech normal and activity/motor behavior normal Speech: normal speech Thought process: normal thought process Results Additional Findings Additional findings: If on a controlled substance or opioids, I have checked an [place]AR[place] report on this patient and there are no aberrancies noted in the prescribing history.??If on a controlled substance or opioid a drug screen was completed and reviewed within the last year, and if there has not been a drug screen completed we ordered one today to monitor higher risk, state monitored pain medication use. As part of providing excellent, safe, comprehensive care, the following was completed at our patient's visit: 1. A medication reconciliation and review to ensure accurate knowledge of current/active medications, including asking our patients to inform us about any wndw-wxy-nurmhau medications or herbal remedies/nutritional supplements/alternative remedies. 2. A review to specifically ensure our patients have had annual screening for screening for depression, screening for tobacco use, and screening for unhealthy alcohol use. For concerning screenings had a discussion with the patient, provided patient education, and recommended follow-up with primary care provider when appropriate. If patient noted with a risk of falling, they received education on strength, gait, and balance training to prevent future risk of falling. Assessment and Plan Assessment and Plan (1) Osteoarthritis of left knee: (2) Lumbar spondylosis: Plan update left knee xray for chronic left knee pain left knee genicular nerve block under fluoroscopy working towards RFA would not advise NSAIDs as patient is on eliquis, she is prescribed diclofenac 75mg BID. Start tramadol 50mg daily as needed, 7 day supply, for moderate to severe pain to improve functional ability. hx of marijuana use, not utilizing, discussed patient not to consume alcohol or utilize marijuana while on tramadol or opioid medications. Tramadol to be utilized sparingly working towards non- opioid interventions, however with recent fall and moderate to severe constant pain I have reviewed the risks vs benefits with patient f/u after genicular nerve block
== END 2023-12-26 10:51 | disposition home or self-care (01) ==
PROVIDERS: PCP Family Medicine; Visit Provider Nurse Practitioner
DX: M47.816 Spondylosis without myelopathy or radiculopathy, lumbar region (principal); M17.12 Unilateral primary osteoarthritis, left knee
CPT/HCPCS: G0463

== ENCOUNTER 2023-12-26 11:46 | Outpatient (OUT) | payer MEDICARE, SELFPAY ==
--- NOTE | 2023-12-26 11:52 | XR_ITS ---
The [place] [id number] Patient Name: LINDA BARBOSA MRN: [id number] date: 1950 Sex: F Assigned Patient Location: [facility] Current Patient Location: [facility] Accession/Order Number: [id number] Exam Date: 12/26/2023 12:05 Report Date: 12/26/2023 12:18 At the request of: ELHAM ESCUDERO Procedure: XR knee LT 4V PROCEDURE: XR knee LT 4V COMPARISON: None. HISTORY: Osteoarthritis Left Knee FINDINGS: BONES:Acute complex intra-articular fracture of the lateral tibial plateau extending into the proximal diaphysis.r distraction of the fracture fragments up to 4 mm an oblique image #5. Underlying osteoarthritis with slgw-vy-irtv articulation and marginal osteophyte formation of the anterior compartment SOFT TISSUES:Negative. No visible soft tissue swelling. EFFUSION:None visible. OTHER: Negative. XR/XR knee LT 4V IMPRESSION: Complex intra-articular fracture involving the lateral proximal tibia Electronically authenticated by: NIKHIL ANTHONY Date: 12/26/2023 12:18
== END 2023-12-26 11:47 | disposition home or self-care (01) ==
LOC: RAD 11:48
PROVIDERS: PCP Family Medicine; Visit Provider Nurse Practitioner
DX: M17.12 Unilateral primary osteoarthritis, left knee (principal); S82.192A Other fracture of upper end of left tibia, initial encounter for closed fracture
CPT/HCPCS: 73564

== ENCOUNTER 2023-12-26 12:45 | Inpatient (IN) | payer MEDICARE, SELFPAY ==
[2023-12-26 12:58] VITALS: BP 160/98; PULSE 86; TEMP 36.9; O2SAT 100; BMI 34.5
--- NOTE | 2023-12-26 14:01 | CT_ITS ---
The [address] [address] Patient Name: LINDA BARBOSA MRN: [id number] date: 1950 Sex: F Assigned Patient Location: ER Current Patient Location: Accession/Order Number: [id number] Exam Date: 12/26/2023 14:23 Report Date: 12/26/2023 14:48 At the request of: XANDER ROTHMAN Procedure: CT knee LT wo con CT knee LT wo con: 12/26/2023 2:23 PM EDT HISTORY: Left knee pain after a fall 2 days ago. Intraarticular fracture of the lateral tibial plateau on radiographs. Please evaluate. COMPARISON: Radiographs left knee 12/26/2023. TECHNIQUE: Multiple contiguous axial CT images of the left knee were obtained without contrast. Sagittal and coronal reformatted images were made. Dose reduction techniques were achieved by using automated exposure control and/or adjustment of mA and/or kV according to patient size and/or use of iterative reconstruction technique. FINDINGS: There are atherosclerotic vascular calcifications. The bones are osteoporotic. There are severe degenerative changes of the lateral and patellofemoral compartments with a jspm-hi-djag appearance. There is a valgus deformity of the knee again seen. There are at least moderate degenerative changes involving the lateral aspect of the medial femorotibial compartment. As seen on the recent radiographs there is a severely comminuted intra-articular fracture of the lateral tibial plateau extending into the lateral aspect of the proximal tibial metadiaphysis. The major fracture fragment of the lateral tibial plateau is displaced laterally 5 mm. There is depression of the articular surface of the posterocentral aspect of the lateral tibial plateau of 7 mm. This fracture extends into the proximal tibiofibular joint. No other fracture or dislocation is seen. There is no significant joint effusion. There is no significant Huang's cyst. There is a large complex fluid collection extending from the posterolateral aspect of the femorotibial joint region along the posterior aspect of the proximal tibial metadiaphysis. This measures 3.9 x 4.9 x 9.4 cm in AP, transverse and craniocaudal dimension respectively. This contains multiple loose bodies and debris. This is compatible with a large synovial cyst tracking along the popliteus muscle and tendon from the adjacent joint. There is soft tissue along the anterolateral aspect of the knee. There is severe fatty atrophy of the proximal medial head of the gastrocnemius muscle. CT/CT knee LT wo con IMPRESSION: 1. There is a similar appearance of a severely comminuted intra-articular fracture of the lateral tibial plateau with depression of the articular surface of 7 mm. 2. Tricompartmental osteoarthritis which appears severe in the lateral and patellofemoral compartments. 3. Atherosclerotic vascular disease. Electronically authenticated by: CHRIS GRIMES Date: 12/26/2023 14:48
--- NOTE | 2023-12-26 14:04 | ED_ITS ---
HPI HPI - General Adult General Chief complaint: Extremity Injury, Lower Stated complaint: LOWER LEFT EXTREMITY PAIN/INJURY Time Seen by Provider: 12/26/23 12:54 Source: patient Mode of arrival: Wheelchair Limitations: no limitations History of Present Illness HPI narrative: Patient is a 73-year-old female with a history of hypertension, high cholesterol, DVT who presents to the emergency department for left knee pain and abnormal x-rays that were ordered as an outpatient. Patient states that she has been having significant knee pain for several days and did have a fall 2 days ago at home. She states she called her orthopedist at [facility] and was very disappointed when he told her that she should just take Tylenol and her pain is likely due to the fact that she needs a knee replacement. She is anticoagulated with Eliquis for the history of DVT. No medications taken prior to arrival. She is unable to ambulate and has been sitting at home for the last 2 days until she could get a pain management appointment. Pain management ordered outpatient x-rays. X-rays show complex intra-articular lateral proximal tibial fracture. Patient reports most of her pain in the proximal tibia anteriorly. She has no calf pain, no distal lower extremity swelling, no numbness or tingling. Related Data Home Medications ?Medication ?Instructions ?Recorded ?Confirmed apixaban 5 mg tablet (Eliquis) mg 09/24/23 atorvastatin 40 mg tablet mg 09/24/23 diclofenac sodium 75 mg mg PO 09/24/23 tablet,delayed release metoprolol succinate 100 mg mg PO 09/24/23 tablet,extended release 24 hr verapamil 180 mg tablet,extended mg PO 09/24/23 release Previous Rx's ?Medication ?Instructions ?Recorded tramadol 50 mg tablet 50 mg PO DAILY PRN pain #30 tabs 12/26/23 tramadol 50 mg tablet 50 mg PO DAILY PRN pain #7 tabs 12/26/23 Allergies Allergy/AdvReac Type Severity Reaction Status Date / Time No Known Drug Allergies Allergy Verified 11/19/23 08:54 Opioid HPI Opioid Management Most Recent Opioid Data: Last Pain Scale 7 12/26/23 14:33 Last MAR Pain Assessment 12/26/23 14:33 Review of Systems ROS Constitutional Denies: fever or chills Ears, nose, mouth, and throat Denies: throat pain Cardiovascular Denies: chest pain Respiratory Denies: shortness of breath Gastrointestinal Denies: nausea or vomiting Musculoskeletal Denies: back pain Integumentary/Breast Denies: rash Neurological Denies: headache Hematologic/Lymphatic Reports: easy bruising and easy bleeding PFSH PFS Medical History (Updated 12/26/23 @ 17:51 by DAKOTAH Bush) Low back pain ?M54.50 - Low back pain, unspecified (ICD-10) Osteoarthritis ?M19.90 - Unspecified osteoarthritis, unspecified site (ICD-10) PAD (peripheral artery disease) ?I73.9 - Peripheral vascular disease, unspecified (ICD-10) Hiatal hernia ?K44.9 - Diaphragmatic hernia without obstruction or gangrene (ICD-10) Heartburn ?R12 - Heartburn (ICD-10) Hypertension ?I10 - Essential (primary) hypertension (ICD-10) Surgical History H/O exploratory laparotomy ?Z98.890 - Other specified postprocedural states (ICD-10) History of knee replacement ?Z96.659 - Presence of unspecified artificial knee joint (ICD-10) History of hip replacement ?Z96.649 - Presence of unspecified artificial hip joint (ICD-10) Exam Narrative Exam Narrative: Gen.: Awake, alert, in no distress Head: Normocephalic, atraumatic ENT: Moist mucous membranes Respiratory: No respiratory distress Gastrointestinal: Abdomen is soft, nondistended and nontender to palpation Extremities: Moves extremities equally, Left knee is diffusely tender anteriorly, left calf is soft and nontender. Ecchymosis noted to the anterior lateral aspect of the knee. Limited flexion and extension due to pain. 2+ DP pulse bilaterally Psych: Normal mood and affect Neuro: No focal neuro deficit Skin: Warm, dry, intact Constitutional Vital Signs, click to edit/add: Last Vital Signs Temp 98.5 F 12/26/23 12:58 Pulse 86 12/26/23 12:58 Resp 20 12/26/23 12:58 BP 160/98 H 12/26/23 12:58 Pulse Ox 100 12/26/23 12:58 O2 Del Method Room Air 12/26/23 12:58 Course Vital Signs Vital signs: Vital Signs Temperature 98.5 F 12/26/23 12:58 Pulse Rate 86 12/26/23 12:58 Respiratory Rate 20 12/26/23 12:58 Blood Pressure 160/98 H 12/26/23 12:58 Pulse Oximetry 100 12/26/23 12:58 Oxygen Delivery Method Room Air 12/26/23 12:58 Temperature 98.5 F 12/26/23 12:58 Pulse Rate 86 12/26/23 12:58 Respiratory Rate 20 12/26/23 12:58 Blood Pressure 160/98 H 12/26/23 12:58 Pulse Oximetry 100 12/26/23 12:58 Oxygen Delivery Method Room Air 12/26/23 12:58 Medical Decision Making MDM Narrative Medical decision making narrative: Patient is treated with fentanyl, Zofran, IV fluids with basic lab studies orde red. I discussed the case with Dr. Stinson, he recommended a CT of the knee to determine if the case may be surgical. CT was obtained and Dr. Stinson reviewed the images. He states this fracture is nonsurgical and the patient can be admitted for pain control/PT and OT evaluation. He will see her tomorrow as a consult. Patient is stable at time of admission. Admitted to the hospitalist for pain control and PT/OT eval. She was placed in a long knee immobilizer and is neurovascularly intact at time of admission Medical Records Medical records reviewed: Yes I reviewed the patient's medical records Lab Data Lab results reviewed: Yes I reviewed the patient's lab results Labs: Lab Results 12/26/23 Range/Units 14:07 WBC 11.3 H (4.0-11.0) 10^3/uL RBC 4.31 (4.20-5.40) 10^6/uL Hgb 13.1 (12.0-16.0) g/dL Hct 40.3 (36.0-48.0) % MCV 93.5 (81.0-99.0) fL MCH 30.4 (26.7-34.0) pg MCHC 32.5 (29.9-35.2) g/dL RDW 15.9 H (11.0-15.0) % Plt Count 237 (150-450) 10^3/uL MPV 10.3 (9.5-13.5) fL Neut % (Auto) 85.2 H (43.0-75.0) % Lymph % (Auto) 9.1 L (20.5-60.0) % [place] % (Auto) 4.1 (1.7-12.0) % Eos % (Auto) 0.2 L (0.9-7.0) % Baso % (Auto) 0.3 (0.2-2.0) % Neut # (Auto) 9.6 H (1.4-6.5) 10^3/uL Lymph # (Auto) 1.0 L (1.2-3.8) 10^3/uL [place] # (Auto) 0.5 (0.3-0.8) 10^3/uL Eos # (Auto) 0.0 (0.0-0.7) 10^3/uL Baso # (Auto) 0.0 (0.0-0.1) 10^3/uL Abs Immat Gran (auto) 0.12 H (0.00-0.03) 10^3/uL Imm/Tot Granulo (auto) 1.1 H (0.0-0.5) % PT 11.3 (9.0-11.6) sec INR 1.07 Sodium 140 (136-145) mmol/L Potassium 4.0 (3.5-5.1) mmol/L Chloride 105 (98-107) mmol/L Carbon Dioxide 24.4 (21.0-32.0) mmol/L Anion Gap 14.6 BUN 42.0 H (7.0-18.0) mg/dL Creatinine 1.79 H (0.55-1.02) mg/dL Est GFR ( Amer) 33 L (>=60) Est GFR (Non-Af Amer) 28 L (>=60) BUN/Creatinine Ratio 23.5 Glucose 123 H (74-106) mg/dL Calcium 9.2 (8.5-10.1) mg/dL Total Bilirubin 0.8 (0.2-1.0) mg/dL AST 21 (15-37) U/L ALT 26 (14-59) U/L Alkaline Phosphatase 107 (46-116) U/L Total Protein 6.2 L (6.4-8.2) g/dL Albumin 3.0 L (3.4-5.0) g/dL Globulin 3.2 g/dL Albumin/Globulin Ratio 0.[address] knee: Attestation: I have reviewed the pertinent imaging results. Radiologist's impression: ITS Impressions Knee CT 12/26/23 14:01 IMPRESSION: 1. There is a similar appearance of a severely comminuted intra-articular fracture of the lateral tibial plateau with depression of the articular surface of 7 mm. 2. Tricompartmental osteoarthritis which appears severe in the lateral and patellofemoral compartments. 3. Atherosclerotic vascular disease. Electronically authenticated by: CHRIS GRIMES Date: 12/26/2023 14:48 Discharge Plan Discharge Chief Complaint: Extremity Injury, Lower Clinical Impression: Closed fracture of left tibial plateau Time of Disposition Decision: 17:50
--- NOTE | 2023-12-26 14:16 | PC.NURSE ---
patient reports left knee pain ongoing for a while, I've needed a knee replacment, but left leg gave out and patient fell and has had increased pain. patient reports difficult ambulation since.
[2023-12-26 14:20] LABS: Basophils Percent Auto 0.3 % (0.2-2.0); Eosinophils Percent Auto 0.2 % (0.9-7.0); Hematocrit 40.3 % (36.0-48.0); Hemoglobin 13.1 g/dL (12.0-16.0); Immature Granulocytes Abs Auto 0.12 10^3/uL (0.00-0.03); Immature Granulocytes Pct Auto 1.1 % (0.0-0.5); Lymphocytes Percent Auto 9.1 % (20.5-60.0); Mean Corpuscular HGB Conc 32.5 g/dL (29.9-35.2); Mean Corpuscular Hemoglobin 30.4 pg (26.7-34.0); Mean Corpuscular Volume 93.5 fL (81.0-99.0); Mean Platelet Volume 10.3 fL (9.5-13.5); Monocytes Absolute Auto 0.5 10^3/uL (0.3-0.8); Monocytes Percent Auto 4.1 % (1.7-12.0); Neutrophils Absolute Auto 9.6 10^3/uL (1.4-6.5); Neutrophils Percent Auto 85.2 % (43.0-75.0); Platelet Count 237 10^3/uL (150-450); Red Blood Count 4.31 10^6/uL (4.20-5.40); Red Cell Distribution Width 15.9 % (11.0-15.0); White Blood Count 11.3 10^3/uL (4.0-11.0)
[2023-12-26] MEDS: ONDANSETRON PF 4 MG/2 ML VIAL IV (14:33)
[2023-12-26] MEDS: FENTANYL CITRATE/PF 100 MCG/2 ML VIAL 50 MCG IV (14:33)
[2023-12-26 14:36] LABS: INR 1.07; Prothrombin Time 11.3 sec (9.0-11.6)
[2023-12-26 14:41] LABS: Alanine Aminotransferase 26 U/L (14-59); Albumin Globulin Ratio 0.9; Alkaline Phosphatase 107 U/L (46-116); Anion Gap 14.6; Aspartate Amino Transferase 21 U/L (15-37); BUN Creatinine Ratio 23.5; Bilirubin Total 0.8 mg/dL (0.2-1.0); Calcium 9.2 mg/dL (8.5-10.1); Carbon Dioxide 24.4 mmol/L (21.0-32.0); Chloride 105 mmol/L (98-107); Estimated GFR (African America 33 (>=60); Estimated GFR (Non-African Ame 28 (>=60); Globulin 3.2 g/dL; Glucose 123 mg/dL (74-106); Sodium 140 mmol/L (136-145); Total Protein 6.2 g/dL (6.4-8.2)
[2023-12-26 19:12] VITALS: BP 115/78; PULSE 108; O2SAT 99
[2023-12-26 19:59] VITALS: BP 134/61; PULSE 103; TEMP 37.1; O2SAT 94; BMI 34.6
--- OUTSIDE RECORDS SUMMARY | 2023-12-26 20:01 | XMS_ITS | CCD ---
Author Organization [facility] Care Team Providers Care Casket Liner Name Role Phone Wayne Mccallum Unavailable Jose Najera II Unavailable [phone] MD Vashti Clark Primary Care Provider MD Jose Najera II Attending Provider [phone] AMBER, DR VASHTI Porter Attending Unavailable AMBER, [...] Unavailable MD Vashti Clark Primary Care Provider [phone] MD Willy Yancey Attending Provider [phone] She MUJICA, Marc Tavares Attending Unavailable She MUJICA, Kamilahrius Vernst Attending Unavailable She MUJICA, Andrius Vernst Attending Unavailable She MUJICA, Marc Tavares Attending Unavailable Allergies Allergy Classification Reported Allergen(s) Allergy Type Date of Onset Reaction(s) Facility (6 sources) patient allergy list reviewed by nurse or physicia Propensity to adverse reactions 5 Comment:Done [employer] Other (6 sources) Allergies Reconciled Propensity to adverse reactions Unknown [employer] Other Medications Current Medications Medication Drug Class(es) Dates Sig (Normalized) Sig (Original) acetaminophen 500 mg oral tablet (13 sources) Start: 10-31-2021 take 500 mg by mouth four times daily Acetaminophen Active 500 MG PO Four times daily 120 30 October 31, 2021 12:00am Start: 10-25-2021 End: [...] days Active apixaban 5 mg oral tablet (11 sources) Factor Xa Inhibitor Start: 08-30-19 End: 08-30-19 take 1 tablet by mouth twice daily Apixaban (Eliquis) 5 mg tablet Active 5 MG PO Twice daily 60 August 30, 2023 12:14pm take 1 tablet by mouth every twe lve hours Eliquis 5 MG 1 tablet Orally Twice a day Active atorvastatin 40 mg oral tablet (3 sources) HMG-CoA Reductase Inhibitor Start: 09-16-2023 take 40 mg by mouth once daily Atorvastatin Active 40 MG PO Daily September 16, 2023 1:00am cephalexin 500 mg oral capsule (2 sources) Cephalosporin Antibacterial Start: 10-15-2023 take 500 mg by mouth three times daily Cephalexin Active 500 MG PO Three times daily 02 02October 15, 2023 12:00am docusate sodium 50 mg / sennosides, half-way 8.6 mg oral tablet (3 sources) Start: 10-06-2021 take 2 tablets by mouth every twenty-four hours Senokot S 8.6-50 MG 2 tablets Orally Once a day for 30 day(s) MED TO BED UPON DISCHARGE DOS:10/24/2021 Sep, Active famotidine 20 mg oral tablet (10 sources) Histamine-2 Receptor Antagonist Start: 10-10-2021 End: 10-31-2021 take 20 mg by mouth once daily Famotidine Active 20 MG PO Daily 30 October 31, 2021 12:00am hyoscyamine sulfate 0.125 mg disintegrating oral tablet (10 sources) Start: 10-31-2021 take 1 tablet by mouth four times daily Hyoscyamine Sulfate (Anaspaz) 0.125 mg Tablet,Disintegra ting Active 0.125 MG PO Four times daily [...] TO BED UPON DISCHARGE DOS:10/24/2021 Sep, Active verapamil hydrochloride 180 mg extended release [...] (Original) ascorbic acid 500 mg oral tablet (10 sources) Vitamin C Start: 10-25-2021 End: 10-15-2023 take 1 tablet by mouth twice daily at mealtime Ascorbic Acid (Vitamin C) (Vitamin C) 500 mg Tablet Discontinued 500 MG PO Twice daily with meals 60 October 31, 2021 12:00am October 15, 2023 11:28am aspirin 81 mg delayed release oral tablet (13 sources) Platelet Aggregation Inhibitor, Nonsteroidal Anti-inflammatory Drug [...] D3) 500 mg-5 mcg (200 unit) Tablet (10 sources) Start: 10-31-2021 End: 10-15-2023 take 1 tablet by mouth twice daily Calcium Carbonate-Vitamin D3 (Oyster Shell Calcium-Vit D3) 500 mg-5 mcg (200 unit) Tablet Discontinued 1 TAB PO Twice daily 60 October 31, 2021 12:00am October 15, 2023 11:28am Start: 10-31-2021 take 1 tablet by therese twice daily Calcium Carbonate-Vitamin D3 (Oyster Shell Calcium-Vit D3) 500 mg-5 mcg (200 unit) Tablet Active 1 TAB PO Twice daily 60 October 31, 2021 12:00am Start: 10-31-2021 take 1 tablet by therese twice daily Calcium Carbonate-Vitamin D3 (Oyster Shell [...] 2021 1:03pm cefadroxil 500 mg oral capsule (8 sources) Cephalosporin Antibacterial Start: 10-25-2021 End: 10-31-2021 take 500 mg by mouth twice daily Cefadroxil Discontinued 500 MG PO Twice daily October 25, 2021 12:00am October 31, 2021 2:03pm Start: 10-06-2021 take 1 capsule by mo [facility] every twelve hours Cefadroxil 500 MG 1 tablet Orally every 12 hrs for 7 days MED TO BED UPON DISCHARGE DOS:10/24/2021 24 Sep, 2021 Active celecoxib 200 mg oral capsule (13 sources) Nonsteroidal Anti-inflammatory Drug Start: 10-06-2021 End: 12-13-2023 take 200 mg by mouth twice daily Celecoxib Discontinued 200 MG PO Twice daily October 25, 2021 12:00am October 31, 2021 2:03pm diclofenac sodium 75 mg delayed release oral tablet (20 sources) Nonsteroidal Anti-inflammatory Drug Start: 08-29-2023 End: 12-13-2023 take 75 mg by mouth twice daily Diclofenac Sodium Discontinued 75 MG PO Twice daily December 13, 2023 12:00am December 13, 2023 2:58pm Start: 02-08-2023 Voltaren 1 % a pply [...] 10, 2021 12:00am October 25, 2021 2:10pm hyaluronate (20 sources) Start: 03-19-2018 Supartz Mar Start: 03-05-2018 Supartz Feb Start: 02-26-2018 Supartz Feb Start: 02-19-2018 Supartz Feb melatonin 5 mg oral tablet (5 sources) Start: 10-31-2021 End: 10-15-2023 take 5 mg by mouth once daily at bedtime Melatonin Discontinued 5 MG PO Daily at bedtime October 31, 2021 12:00am October 15, 2023 11:29am oxyCODONE hydrochloride 5 mg oral tablet (12 sources) Opioid Agonist Start: 10-31-2021 End: 10-15-2023 take 5 mg by mouth four times daily Oxycodone Discontinued 5 MG PO Four times daily 02 12October 31, 2021 October 15, 2023 11:29am Start: [...] DISCHARGE DOS:10/24/2021 Sep, Active polyethylene glycol 3350 40323 mg powder for oral solution (8 sources) Osmotic Laxative Start: 10-06-2021 End: 04-18-2022 Polyethylene Glycol 3350 (Miralax) 17 gram Powder [...] Translations: [Generalized abdominal pain] Episodic Administrative/social admission (5 sources) Other reduced mobility; Translations: [Impaired mobility [...] not elsewhere classified] Chronic Other gastrointestinal disorders (5 sources) Irritable bowel syndrome; Translations: [Irritable bowel [...] Polyneuropathy, unspecified Chronic Other nervous system disorders (5 sources) Postoperative pain ; Translations: [Other acute [...] Onset: 08-31-2017 Chronic Peripheral and visceral atherosclerosis (12 sources) Peripheral vascular disease; Translations: [Peripheral vascular disease, unspecified] Onset: 09-13-2023 Chronic Phlebitis; thrombophlebitis and thromboembolism (7 sources) Deep venous thrombosis of lower extremity; Translations: [Acute embolism and thrombosis of right femoral vein] 08-30-2023 Episodic Residual codes; unclassified (5 sources) Patient encounter status; Translations: [Encounter for [...] Onset: 11-02-2022 Varicose veins of lower extremity (4 sources) Varicose veins of left lower extremity [...] ity US ankle/arm indiceson US ankle/arm indices [facility] [place] [address] Ultrasound Report Signed Patient: Kami Fink MR#: [id number] [birth year] : 1950 Acct:[id number] Age/Sex: 73 / F ADM Date: 09/13/23 Loc: [facility] Room: Type: [facility] Attending Dr: Willy Yancey MD Ordering Provider: [...] Willy Yancey MD09/13/2023 2:37 PM Dictation Location: [place] [address] Tech: Marquita Mooreley Transcribed By: DALILA 09/13/23 1437 Dictated By: Willy Yancey MD 09/13/23 1435 Signed By: 09/13/23 1437 Normal [facility] XR knee RT 2Von 11-02-2022 XR knee RT 2V [facility] [place] [address] [place] [address] XRay Report Signed Patient: Kami Fink MR#: [id number] [birth year] : 1950 Acct:[id number] Age/Sex: 72 / F ADM Date: 11/02/22 Loc: [facility] Room: Type: [facility] Attending Dr: Jose Najera II, MD Copies [...] Mondragon Jr., D.OEdgard11/02/2022 3:18 PM Dictation Location: [place] [address] Transcribed By: DALILA 11/02/22 1518 Dictated By: Audie Mondragon Jr DO 11/02/22 1517 Signed By: 11/02/22 1518 Normal [facility] XR knee RT 2V [facility] [employer] Other XR knee RT 2V [facility] Main [facility] [employer] Other XR knee RT 2V 1[address] [facility] [employer] Other [place]R [place] 2[place] [address] [facility] [employer] Other XR knee RT 2V [facility] Other [facility] knee RT 2V Signed [employer] Other XR knee RT 2V Patient: Krystle Fink MR#: [id number] [place] [employer] Other XR knee RT 2V 31 [employer] Other XR knee RT 2V : 1950 Acct:[id number] [employer] Other XR knee RT 2V Age/Sex: 72 / F ADM Date: 11/02/22 [employer] Other XR knee RT 2V Loc: [facility] Room: Type : [facility] [employer] Other XR knee RT 2V Attending Dr: Jose Najera II, MD [employer] Other XR knee RT 2V Copies to: Jose Najera MD [employer] Other XR knee RT 2V Ordering Provider: Jose Najera MD [employer] Other XR knee RT 2V Date of Service: 11/02/22 [employer] Other XR knee RT 2V XR/XR knee RT 2V: History of total right knee replacement [employer] Other XR knee RT 2V RIGHT KNEE - 2 views N [employer] Other XR knee RT 2V CLINICAL HISTORY: Follow-up right TKA [employer] Other XR knee RT 2V COMPARISON: Right knee 01/18/2022 [employer] Other XR knee RT 2V FINDINGS: [employer] Other XR knee RT 2V No evidence of hardware complication or acute bony process. [employer] Other XR knee RT 2V XR/XR knee RT 2V [employer] Other XR knee RT 2V IMPRESSION: [email or web address] Other XR knee RT 2V NO EVIDENCE OF HARDWARE COMPLICATION. [employer] Other XR knee RT 2V Impression dictated by: Audie Mondragon Jr., D.OEdgard11/02/2022 3:18 PM [employer] Other XR knee RT 2V Dictation Location: [facility] [employer] Other XR knee RT 2V Transcribed By: PWS 11/02/22 [facility] [employer] Other XR knee RT 2V Dictated By: Audie Mondragon Jr DO 11/02/22 [facility] [employer] Other XR knee RT 2V Signed By: [employer] Other XR knee RT 2V 11/02/22 [facility] [employer] Other Vital Signs Date Time Vital Sign Value Performing Clinician Facility 12-13-2023 14:51-0400 Body height 161.29 cm [facility] 12-13-2023 14:51-0400 Body mass index (BMI) [Ratio] 35.4 kg/m2 [facility] 12-13-2023 14:51-0400 Body weight 92.07 kg [facility] 10-15-2023 11:18-0400 Body height 161.29 cm MD Vashti Clark Work Phone: [facility] 10-15-2023 11:18-0400 Body mass index (BMI) [Ratio] 36.6 kg/m2 MD Vashti Clark Work Phone: [facility] 10-15-2023 11:18-0400 Body weight 95.36 kg MD Vashti Clark Work Phone: [facility] 10-15-2023 11:18-0400 Diastolic blood pressure 81 mm[Hg] MD Vashti Clark Work Phone: [facility] 10-15-2023 11:18-0400 Heart rate 77 /min MD Vashti Clark Work Phone: [facility] 10-15-2023 11:18-0400 Systolic blood pressure 142 mm[Hg] MD Vashti Clark Work Phone: [facility] 09-13-2023 11:54-0500 Body height 161.29 cm MD Vashti Clark Work Phone: [facility] 09-13-2023 11:54-0500 Body mass index (BMI) [Ratio] 37.8 kg/m2 MD Vashti Clark Work Phone: [facility] 09-13-2023 11:54-0500 Body temperature 97.6 [degF] MD Vashti Clark Work Phone: [facility] 09-13-2023 11:54-0500 Body weight 98.42 kg MD Vashti Clark Work Phone: [facility] 09-13-2023 11:54-0500 Diastolic blood pressure 82 mm[Hg] MD Vashti Clark Work Phone: [facility] 09-13-2023 11:54-0500 Heart rate 89 /min MD Vashti Clark Work Phone: [facility] 09-13-2023 11:54-0500 Respiratory rate 16 /min MD Vashti Clark Work Phone: [facility] 09-13-2023 11:54-0500 SaO2% (BldA) [Mass fraction] 99 % MD Vashti Clark Work Phone: [facility] 09-13-2023 11:54-0500 Systolic blood pressure 124 mm[Hg] MD Vashti Clark Work Phone: [facility] 08-30-2023 10:41-0500 Body height 161.29 cm [facility] 08-30-2023 10:41-0500 Body mass index (BMI) [Ratio] 37.8 kg/m2 [facility] 08-30-2023 10:41-0500 Body weight 98.42 kg [facility] 08-30-2023 10:41-0500 Diastolic blood pressure 81 mm[Hg] [facility] 08-30-2023 10:41-0500 Heart rate 87 /min [facility] 08-30-2023 10:41-0500 Systolic blood pressure 155 mm[Hg] [facility] 08-23-2023 09:20-0500 Body height 161.29 cm Ny Jin Other [facility] [employer] Other 08-23-2023 09:20-0500 Body mass index (BMI) [Ratio] 37.48 kg/m2 Ny Jin Other [facility] [employer] Other 08-23-2023 09:20-0500 Body weight 97.52 kg Ny Jin Other [facility] [employer] Other 08-16-2023 10:00-0500 Body height 161.29 cm Vashti Clark Other [facility] 08-16-2023 10:00-0500 Body mass index (BMI) [Ratio] 37.83 kg/m2 Vashti Clark Other [employer] Other 08-16-2023 10:00-0500 Body weight 98.43 kg Vashti Clark Other [employer] Other 08-16-2023 10:00-0500 Body weight 98.42 kg [facility] 08-16-2023 10:00-0500 Diastolic blood pressure 81 mm[Hg] Vashti Clark Other [facility] 08-16-2023 10:00-0500 Systolic blood pressure 147 mm[Hg] Vashti Clark Other [facility] 05-29-2023 11:30-0500 Body height 161.29 cm Vashti Clark Other [facility] [employer] Other 05-29-2023 11:30-0500 Body mass index (BMI) [Ratio] 37.41 kg/m2 Vashti Clark Other [facility] [employer] Other 05-29-2023 11:30-0500 Body weight 97.34 kg Vashti Clark Other [employer] Other 05-29-2023 11:30-0500 Diastolic blood pressure 85 mm[Hg] Vashti Clark Other [employer] Other 05-29-2023 11:30-0500 Respiratory rate 16 /min Vashti Clark Other [employer] Other 05-29-2023 11:30-0500 Systolic blood pressure 174 mm[Hg] Vashti Clark Other [employer] Other 03-15-2023 08:45-0400 Body height 161.29 cm Jose Najera II Other [employer] Other 03-15-2023 08:45-0400 Body mass index (BMI) [Ratio] 38.01 kg/m2 Jose Najera II Other [employer] Other 03-15-2023 08:45-0400 Body weight 98.88 kg Jose Najera II Other [employer] Other 01-18-2023 11:15-0400 Body height 161.29 cm Vashti Clark Other [employer] Other 01-18-2023 11:15-0400 Body mass index (BMI) [Ratio] 38.01 kg/m2 Vashti Clark Other [employer] Other 01-18-2023 11:15-0400 Body weight 98.88 kg Vashti Clark Other [employer] Other 01-18-2023 11:15-0400 Diastolic blood pressure 81 mm[Hg] Vashti Clark Other [employer] Other 01-18-2023 11:15-0400 Systolic blood pressure 167 mm[Hg] Vashti Clark Other [employer] Other 12-12-2022 13:45-0400 Body height 161.29 cm Vashti Clark Other [employer] Other 12-12-2022 13:45-0400 Body mass index (BMI) [Ratio] 37.48 kg/m2 Vashti Clark Other [employer] Other 12-12-2022 13:45-0400 Body weight 97.52 kg Vashti Clark Other [employer] Other 12-12-2022 13:45-0400 Diastolic blood pressure 59 mm[Hg] Vashti Clark Other [employer] Other 12-12-2022 13:45-0400 Systolic blood pressure 147 mm[Hg] Vashti Clark Other [employer] Other 11-02-2022 15:45-0400 Body height 167.64 cm Jose Smock II Other [employer] Other 12-07-2021 11:45-0400 Body height 167.64 cm Jose Smock II Other [employer] Other 12-07-2021 11:45-0400 Body mass index (BMI) [Ratio] 34.7 kg/m2 Jose Smock II Other [employer] Other 12-07-2021 11:45-0400 Body weight 97.52 kg Jose Smock II Other [employer] Other 11-16-2021 11:45-0400 Body height 167.64 cm Jose Smock II Other [employer] Other 11-16-2021 11:45-0400 Body mass index (BMI) [Ratio] 34.7 kg/m2 Jose Smock II Other [employer] Other 11-16-2021 11:45-0400 Body weight 97.52 kg Jose Reinaldo II Other [employer] Other 10-06-2021 16:00-0400 Body height 167.64 cm Jose Reinaldo II Other [employer] Other 10-06-2021 16:00-0400 Body mass index (BMI) [Ratio] 34.7 kg/m2 Jose Smock II Other [employer] Other 10-06-2021 16:00-0400 Body weight 97.52 kg Jose Smock II Other [employer] Other 09-13-2021 16:15-0500 Body height 167.64 cm Wayne Mccallum Other [employer] Other 09-13-2021 16:15-0500 Body mass index (BMI) [Ratio] 34.7 kg/m2 Wayne Mccallum Other [employer] Other 09-13-2021 16:15-0500 Body weight 97.52 kg Wayne Mccallum Other [employer] Other Encounters Encounter Date Encounter Type Care Provider Facility Start: 12-13-2023 End: 12-13-2023 ambulatory [facility] Work Phone: Start: 12-13-2023 End: 12-13-2023 Patient encounter procedure [facility] Work Phone: Start: 11-19-2023 End: 11-20-2023 ambulatory Marc Nowak MD Facility[facility] Start: 10-29-2023 End: 10-30-2023 ambulatory Marc Nowak MD [facility]: [facility] Start: 10-15-2023 End: 10-15-2023 ambulatory MD Vashti Clark Work Phone: [facility] Work Phone: Start: 10-15-2023 End: 10-15-2023 Patient encounter procedure MD Vashti Clark Work Phone: [facility] Work Phone: Start: 10-04-2023 End: 10-04-2023 ambulatory MD Vashti Clark Work Phone: [facility] Work Phone: Start: 10-04-2023 End: 10-04-2023 Patient encounter procedure MD Vashti Clark Work Phone: [facility] Work Phone: Start: 10-01-2023 End: 10-02-2023 ambulatory Marc Nowak MD Facility:[facility] [place] Start: 09-24-2023 End: 09-25-2023 ambulatory Marc Nowak MD Facility:[facility] Start: 09-13-2023 End: 09-13-2023 ambulatory Willy Yancey Facility:[facility] Start: 09-13-2023 End: 09-13-2023 Patient encounter procedure MD Vashti Clark Work Phone: [facility] Start: 09-13-2023 End: 09-13-2023 Patient encounter procedure MD Vashit Clark Work Phone: [facility] Work Phone: Start: 08-30-2023 End: 08-30-2023 ambulatory [facility] Work Phone: Start: 08-30-2023 End: 08-30-2023 Patient encounter procedure [facility] Work Phone: Start: 08-27-2023 End: 08-27-2023 ambulatory Ny Jin Other [employer] Other Start: 08-27-2023 Telephone encounter Ny GOMES [facility] Start: 08-23-2023 End: 08-23-2023 ambulatory Ny Jin Other [employer] Other Start: 08-23-2023 Office outpatient ne w 45 minutes Ny GOMES [facility] Start: 08-16-2023 End: 08-16-2023 ambulatory Vashti Clark Other [employer] Other Start: 08-16-2023 Office outpatient vi sit 15 minutes Vashti GOMES [facility] Start: 08-16-2023 Telephone encounter Vashti Clark [facility] Start: 08-16-2023 End: 08-16-2023 Patient encounter procedure [facility]- Start: 08-13-2023 End: 08-13-2023 ambulatory Jose Smock II Other [employer] Other Start: 08-13-2023 Telephone encounter Jose Reinaldo II [facility] Start: 07-03-2023 End: 07-03-2023 ambulatory Vashti Clark Other [employer] Other Start: 07-03-2023 Telephone encounter Vashti Clark [facility] Start: 06-27-2023 Patient encounter procedure [facility]- Start: 06-18-2023 End: 06-18-2023 ambulatory ANABELLA D DOLCE Not Available Start: 06-11-2023 End: 06-11-2023 ambulatory Vashti Amber Other [employer] Other Start: 06-11-2023 Telephone encounter Vashti Amber [facility] Start: 06-01-2023 End: 06-01-2023 ambulatory ANABELLA D DOLCE Not Available Start: 05-29-2023 End: 05-29-2023 ambulatory Vashti Clark Other [employer] Other Start: 05-29-2023 Office outpatient vi sit 15 minutes Vashti Amber [facility] Start: 05-29-2023 Telephone encounter Vashti Clark [facility] Start: 05-14-2023 End: 05-14-2023 ambulatory Jose De Andaisle II Other [employer] Other Start: 05-14-2023 Telephone encounter Jose Reinaldo II [facility] Start: 04-02-2023 End: 04-02-2023 ambulatory Vashti Clark Other [employer] Other Start: 04-02-2023 Telephone encounter Vashti Clark [facility] Start: 03-15-2023 End: 03-15-2023 ambulatory Jose Reinaldo II Other [employer] Other Start: 03-15-2023 Office outpatient vi sit 25 minutes Jose Smock II [facility] Start: 02-26-2023 End: 02-26-2023 ambulatory Vashti Clark Other [employer] Other Start: 02-26-2023 Telephone encounter Vashti Clark [facility] Start: 02-08-2023 End: 02-08-2023 ambulatory Jose De Andaisle II Other [employer] Other Start: 02-08-2023 Office outpatient vi sit 25 minutes Jose Smock II [facility] Start: 01-19-2023 End: 01-19-2023 ambulatory Vashti Clark Other [employer] Other Start: 01-19-2023 Telephone encounter Vashti Clark [facility] Start: 01-18-2023 End: 01-18-2023 ambulatory Vashti Clark Other [employer] Other Start: 01-18-2023 Office outpatient vi sit 15 minutes Vashti Clark [facility] Start: 01-17-2023 End: 01-17-2023 ambulatory Jose Reinaldo II Other [employer] Other Start: 01-17-2023 Telephone encounter Jose De Andaisle II [facility] Start: 12-13-2022 End: 12-13-2022 ambulatory Vashti Clark Other [employer] Other Start: 12-13-2022 Telephone encounter Jose Smock II [facility] Start: 12-12-2022 End: 12-13-[address] VASHTI CLARK Facility: Start: 12-12-2022 Office outpatient vi sit 15 minutes Vashti Clark [facility] Start: 11-02-2022 End: 11-02-2022 ambulatory Jose M Smock II [employer] Other Start: 11-02-2022 Office outpatient vi sit 25 minutes Jose Reinaldo II [facility] Start: 10-10-2022 End: 10-10-2022 ambulatory Jose Smock II Other [employer] Other Start: 10-10-2022 Telephone encounter Jose Smock II [facility] Start: 06-23-2022 End: 06-23-2022 ambulatory MD Vashti Clark Work Phone: [facility] Work Phone: Start: 06-23-2022 End: 06-23-2022 Patient encounter procedure MD Vashti Clark Work Phone: [facility] Start: 04-13-2022 End: 04-13-2022 ambulatory Jose Smock II Other [employer] Other Start: 04-13-2022 Telephone encounter Jose Smock II [facility] Start: 03-06-2022 End: 03-06-2022 ambulatory Wayne Mccallum Other [employer] Other Start: 03-06-2022 Office outpatient vi sit 15 minutes Wayne Mccallum [facility] [place] Start: 01-18-2022 (Post-Op) Post-Op Jose Reinaldo II [facility] Start: 01-18-2022 End: 01-18-2022 ambulatory Jose Smock II Other [employer] Other Start: 12-07-2021 (Post-Op) Post-Op Jose Smock II [facility] Start: 12-07-2021 End: 12-07-2021 ambulatory Jose Smock II Other [employer] Other Start: 11-21-2021 Pre-procedure evaluation check Jose Smock II Other [employer] Other Start: 11-16-2021 End: 11-16-2021 ambulatory Jose Smock II Other [employer] Other Start: 11-16-2021 Office outpatient vi sit 15 minutes Jose Reinaldo II [facility] Start: 10-14-2021 (Prolonged) Prolonge d Services Jose Reinaldo II [facility] Start: 10-14-2021 End: 10-14-2021 ambulatory Jose Reinaldo II Other [employer] Other Start: 10-06-2021 End: 10-06-2021 ambulatory Jose Smock II Other [employer] Other Start: 10-06-2021 Office outpatient vi sit 25 minutes Jose Reinaldo II [facility] Start: 09-13-2021 End: 09-13-2021 ambulatory Jose Reinaldo II Other [employer] Other Start: 09-13-2021 Office outpatient vi sit 25 minutes Wayne Mccallum [facility] Start: 09-13-2021 Telephone encounter Jose De Andaisle II [facility] Start: 08-09-2021 End: 08-09-2021 ambulatory Wayne Mccallum Other [employer] Other Start: 08-09-2021 Telephone encounter Wayne Mccallum [facility] Start: 07-28-2021 End: 07-28-2021 ambulatory Wayne Mccallum Other [employer] Other Start: 07-28-2021 Office outpatient vi sit 15 minutes Wayne Mccallum [facility] Start: 06-27-2021 Adult health examination Jose Reinaldo II Other [facility] [employer] Other Start: 05-12-2021 Office outpatient vi sit 15 minutes Wayne Mccallum [facility] [place] Procedures Date Procedure Procedure Detail Performing Clinician [...] Activity Detail Author Start: 10-15-2023 Patient referral [facility] Work Phone: Patient referral [facility] Work Phone: Immunizations Immunization Date Immunization Notes Care Provider Vincenzo zamora 05-29-2023 influenza virus vaccine, unspecified formulation [facility] 05-29-2023 influenza, high dose seasonal, preservative-free Vashti Clark Other [facility] [employer] [employer] Other 04-11-2021 COVID-19 mRNA Comirnaty (Pfizer) MD Vashti Clark Work Phone: [facility] 09-07-2020 COVID-19 mRNA Comirnaty (Pfizer) MD Vashti Clark Work Phone: [facility] 08-17-2020 COVID-19 mRNA Comirnatwinter (Pfizer) MD Vashti Clark Work Phone: [facility] 05-24-2020 Kenalog -40 mg Wayne Mccallum Other [facility] [employer] Other 03-31-2020 influenza virus vaccine, split virus (incl. purified surface antigen) Jose Najera II Other [employer] Other 03-31-2020 influenza virus vaccine, unspecified formulation [facility] 08-11-2019 Kenalog -40 mg Wayne Felter Other [employer] Other 11-04-2018 Kenalog -40 mg Wayne Felter Other [employer] Other 03-19-2018 Supartz Wayne Felter Other [employer] Other 03-12-2018 Theraputic Injection Wayne Felter Other [employer] Other 03-05-2018 Supartz Wayne Felter Other [employer] Other 02-26-2018 Supartz Wayne Felter Other [employer] Other 02-19-2018 Supartz Wayne Felter Other [employer] Other 11-27-2017 Kenalog -40 mg Wayne Felter Other [employer] Other 05-31-2016 influenza virus vaccine, split virus (incl. purified surface antigen) Jose Najera II Other [employer] Other 05-31-2016 influenza virus vaccine, unspecified formulation [facility] 05-31-2016 pneumococcal polysaccharide vaccine, 23 valent Jose Najera II Other [facility] Payers Date Payer Category Payer Medicare 2023 Unknown 2022 Self-pay [id number] 1961 Medicare [id number] 2.1 [id number] 1961 Unknown [id number] 2.1 [id number] 1948 Unknown [id number] 2.16.84 [id number] 1948 Unknown [id number] 2.16.840 .[id number] 1948 Unknown [id number] 2.16.840 .[id number] 1948 Unknown [id number] 2.16. [id number] 1948 Unknown [id number] 2.16. [id number] 1948 Unknown [id number] 2.16. [id number] 1948 Unknown [id number] 2.16. [id number] Unknown Karen BC/JM [id number] Unknown [id number] 2.16.8 [id number] Unknown [id number] 2.16.8 [id number] Social History Date Type Detail Facility Unknown if ever smoked [employer] Other Sex Assigned At Sex Assigned At Bir th [employer] Other Start: 10-26-2021 End: 10-26-2021 Tobacco smoking status UTIS Never smoked tobacco (finding) [facility] Start: 1950 Sex Assigned At Female F [facility] Medical Equipment Procedure Code Equipment Code Equipment Origin al Text Equipment Identifier Dates Arthroplasty, knee, total, minimally invasive Orthopaedic cement, non-medicated [id number] FDA Start: 10-24-2021 Arthroplasty, knee, total, minimally invasive Uncoated knee femur prosthesis, metallic [id number] FDA Start: 10-24-2021 Arthroplasty, knee, total, minimally invasive Tibial insert ()[id number] FDA Start: 10-24-2021 Arthroplasty, knee, total, minimally invasive Polyethylene patella prosthesis ()[id number] FDA Start: 10-24-2021 Arthroplasty, knee, total, minimally invasive Knee stem ()[id number] FDA Start: 10-24-2021 Arthroplasty, knee, total, minimally invasive Uncoated knee tibia prosthesis, metallic ()[id number] FDA Start: 10-24-2021 Clinical Notes 05-12-2021 to [...] Aug, Lower extremity edema (ICD-10 - R60.0) [employer] Other 02-01-2024 Evaluation note* Encounter Date Diagnosis Assessment Notes Treatment Notes Treatment Clinical Notes Aug, Leg edema, right (ICD-10 - R60.0) Check US today, discussed other possibilities but r/o DVT first. [employer] Other 12-19-2023 Evaluation note* Encounter Date Diagnosis Assessment Notes Treatment Notes Treatment Clinical Notes Jun, Lumbar pain (ICD-10 - M54.50) [employer] Other 11-27-2023 Evaluation note* Encounter Date Diagnosis Assessment Notes Treatment Notes Treatment Clinical Notes May, DDD (degenerative disc disease), lumbar (ICD-10 - M51.36) [employer] Other 11-14-2023 Evaluation note* Encounter Date Diagnosis Assessment Notes Treatment Notes Treatment Clinical Notes May, Peripheral polyneuropathy (ICD-10 - G62.9) Requests labs to r/o metabolic causes. May, Lumbar pain (ICD-10 - M54.50) Chronic lumbar pain. Agrees to start w xray. May, Paronychia, toe, lef t (ICD-10 - L03.032) Pt requests antibiotic at end of visit. Keep foot clean and dry. [employer] Other 08-31-2023 Evaluation note* Encounter Date Diagnosis [...] wedding planned the end of August 2023. [employer] Other 07-27-2023 Evaluation note* Encounter Date Diagnosis [...] it is not something that I prescribed. [employer] Other 07-06-2023 Evaluation note* Encounter Date Diagnosis Assessment Notes Treatment Notes Treatment Clinical Notes Jan, Easy bruisability (ICD-10 - R23.3) Pt will get labs today. Discussed possible link w the frequent NSAIDs Jan, Essential (primary) hypertension (ICD-10 - I10) Due for labs. Possible elevated glucose - nonfasting, had steroid pills and injections due to foot issues. She is seeing podiatry for plantar fasciitis. [employer] Other 07-06-2023 Evaluation note* Encounter Date Diagnosis [...] symptoms. Any developing patterns. Stay well hydrated. [employer] Other 05-31-2023 NotePROCEDURE: XR FOOT LT MIN [...] Electronically authenticated by: TIM TORREZ Date: 2022-12-13 08:39[facility]05-30-2023 Evaluation note* Encounter Date Diagnosis Assessment Notes Treatment Notes Treatment Clinical Notes November, Left foot pain (ICD-10 - M79.672) Discussed primary concern of stress fracture. Pt agrees to xray. Reviewed ortho notes. She is to followup there prn. [employer] Other 2023 Evaluation note* Encounter Date Diagnosis Assessment Notes Treatment Notes Treatment Clinical Notes Oct, History of total right knee replacement (ICD-10 - Z96.651) Oct, Primary osteoarthritis of both knees (ICD-10 - M17.0) Oct, Other [facility] at [facility] on 10/24/2021 Happy with surgical result [...] as needed basis for the left knee. [employer] Other 09-29-2022 Evaluation note* Encounter Date Diagnosis Assessment Notes Treatment Notes Treatment Clinical Notes Mar, Primary osteoarthritis of both knees (ICD-10 - M17.0) [employer] Other 08-22-2022 Evaluation note* Encounter Date Diagnosis [...] note writ ten by Richar Kruger LPN, Director Auto. Edited and approved by Dr. Wayne Mccallum MD. [employer] Other 07-06-2022 Evaluation note* Encounter Date Diagnosis Assessment Notes Treatment Notes Treatment Clinical Notes Jan, Primary osteoarthritis of both knees (ICD-10 - M17.0) Jan, Aftercare following joint replacement surgery (ICD-10 - Z47.1) Jan, History of total right knee replacement (ICD-10 - Z96.651) Jan, Other [facility]KA at [facility] on 10/24/2021 Doing well Discussed post-op dental prophylaxis. Shared decision made to continue prophylactic antibiotics indefinitely. Follow-up at 1 year post-op for repeat examination and 2 view x-rays of the right knee. Patient instructed to call with any questions or concerns. [employer] Other 05-25-2022 Evaluation note* Encounter Date Diagnosis Assessment Notes Treatment Notes Treatment Clinical Notes November, Primary osteoarthritis of both knees (ICD-10 - M17.0) November, Aftercare following joint replacement surgery (ICD-10 - Z47.1) November, History of total right knee replacement (ICD-10 - Z96.651) November, Other [facility]KA at [facility] on 10/24/2021 Doing well Patient may continue activities as tolerated. Continue PT as recommended. Continue taking [id number] anti-inflammatori es as needed for assistance with swelling and pain associated with the operative extremity. Follow-up in 6 weeks for repeat examination and long standing x-rays. [employer] Other 05-04-2022 Evaluation note* Encounter Date Diagnosis [...] for 3 views of the right knee. [employer] Other 04-01-2022 Evaluation note* Encounter Date Diagnosis [...] patient could proceed with surgery safely. The internet cafe manager was vital for surgery timing and [...] plans. Prolonged services time spent: 37 minutes [employer] Other 04-01-2022 History general Narrative - Reported* Type Description Date Medical History hypertension Surgical History bilateral SANDRO Surgical History abdominal surgery Surgical History RT TKR 10/2021 Hospitalization History see above [employer] Other 04-01-2022 History general Narrative - Reported* Type Description Date Medical History hypertension Surgical History bilateral SANDRO Surgical History abdominal surgery Surgical History RT TKR 10/2021 Surgical History COLONOSCOPY Hospitalization History see above [employer] Other 04-01-2022 History general Narrative - Reported* Type Description Date Medical History hypertension Medical History Frozen shoulder Medical History Lumbar pain Surgical History bilateral SANDRO Surgical History abdominal surgery Surgical History RT TKR 10/2021 Surgical History COLONOSCOPY Hospitalization History see above [employer] Other 03-24-2022 Evaluation note* Encounter Date Diagnosis [...] rehab stay. Joints Meeting Checklist - Pharmacy: [facility] med to bed - Approach/Technique: ZULLY - [...] elected to proceed with the above surgery. [employer] Other 03-01-2022 Evaluation note* Encounter Date Diagnosis [...] note writ ten by Richar Kruger LPN, Director Auto. Edited and approved by Dr. Wayne Mccallum MD. [employer] Other 03-01-2022 Evaluation note* Encounter Date Diagnosis Assessment Notes Treatment Notes Treatment Clinical Notes Sep, Primary osteoarthritis of both knees (ICD-10 - M17.0) [employer] Other 01-25-2022 Evaluation note* Encounter Date Diagnosis Assessment Notes Treatment Notes Treatment Clinical Notes Jul, Primary osteoarthritis of both knees (ICD-10 - M17.0) [employer] Other 01-13-2022 Evaluation note* Encounter Date Diagnosis [...] note writ ten by Richar Kruger LPN, Director Auto. Edited and approved by Dr. Wayne Mccallum MD. [employer] Other 10-28-2021 Evaluation note* Encounter Date Diagnosis [...] note writ ten by Nissa Murillo CMA, Director Auto. Edited and approved by Dr. Wayne Mccallum MD. [employer]Setter [facility] [employer] Other Evaluation noteNo assessment information available [facility] Work Phone: Evaluation noteNo InformationNortCura[facility] [employer] Other Evaluation note* Diagnosis Onset Date Resolution Status Right femoral vein DVT acute [facility] Work Phone: Evaluation note* Diagnosis Onset Date Resolution Status Essential (primary) hypertension acute Knee arthropathy acute Right femoral vein DVT acute PAD (peripheral artery disease) acute Primary osteoarthritis of left knee acute [facility] Work Phone: Evaluation note* Diagnosis Onset Date Resolution Status Essential (primary) hypertension acute Knee arthropathy acute Right femoral vein DVT acute PAD (peripheral artery disease) acute Primary osteoarthritis of left knee acute PAD (peripheral artery disease) acute Venous ulcer of left leg acu te [facility] Work Phone: Evaluation note* Diagnosis Onset Date Resolution Status Primary osteoarthritis of left knee acute PAD (peripheral artery disease) acute Venous ulcer of left leg acu te Primary osteoarthritis of left knee acute [facility] Work Phone: History general Narrative - Reported* Type Description Date Medical History hypertension Surgical History bilateral SANDRO Surgical History abdominal surgery [facility] [employer] Other Hospital Discharge instructionsAmbulatory Orders* Referral to Wound Care Time Frame: 10/15/23, Location: None Selected [facility] Work Phone: Family History Relationship Condition Age [...] Diagnosis 1 Lumbar pain (M54.50) Referral Organization [facility] Referring Provider First Name Ny Referring Provider Last Name Annabel Referring Provider Specialty Nurse Pract itioner Referred Organization [facility] Pain Managemen t [facility] [place] Referred Provider Wayne Mccallum Referred Address [address] [place],[address] Referred Provider Specialty Pain Medicin e Referral Priority Routine General Notes Eryn Reynoso 02:02:11 PM >received today, patient previously seen by Dr Mccallum (last visit Feb 2022) and is still considered established. sending p2p at this time for scheduling. Reason evaluate and t reat for peripheral vascular disease Diagnosis 1 Peripheral vascular disease (I73.9) Referral Organization [facility] Referring Provider First Name Ny Referring Provider Last Name Annabel Referring Provider Specialty Nurse Practesha itneil Referred Organization [facility] Vascular Surge ry Referred Provider Willy Yancey Referred Address [address],[place],[address] Referred Provider Specialty Vascular Samantha piotr Referral Priority Routine General Notes Eryn Reynoso 02:08:33 PM >received today, p2p sent for scheduling Reason *Waiting for appt chronic lumbar - recent MRI Diagnosis 1 Lumbar pain (M54.50) Referral Organization [facility] linsharmaine Referring Provider First Name Vashti Referring Provider Last Name Amber Referring Provider Specialty Family Medi cine Referred Organization [facility] Spine Center Referred Provider Jose Clark Referred Address [address] ,[place],[address] Referred Provider Specialty Neurological Surgery Referral Priority [...] artery disease) Venous ulcer of left leg Chief Complaint OP SP LT KNEE PAIN R EQUESTING INJECTION Wound on leg OP SP LT KNEE PAIN Reason for Visit Primary osteoarthrit is of left knee PAD (peripheral artery disease) Venous ulcer of left leg Primary osteoarthritis of left knee Additional Source Comments REASON FOR VISIT (unrecogniz ed section and content) RECHECKRECHECKRXMEDICATION R EFILLNo InformationNo InformationH & P RIGHT TOTAL KNEE [id number] WK WOUND CHECKRecheck Right Knee6 WK RECHECKLT KNEE PAINrx requestmed refill1 YEAR, LT KNEE PAINLeft FootNo Informationfoot xrayNo Informationeasily bruisinglabsOP SP DISCUSS MEDSeasily bruisingREFILLOP SP LT KNEE PAIN WANTS INJECTIONRefillNo Informationrefilltingling/numbness in footxraylumbar MRIlabsVenous US Resultslegs swellingMed Refillchronic lumbarNeurosurgery office note Care Teams (unrecognized sec tion and content) Team Status: Active Member Role Status Tawanna Clark MD Primary Care Provider Active Team Status: Inactive Member Role Status Dates Vashti Clark MD Attending Provider Active St art: August 16, 2023 End: August 16, 2023 Team Status: Inactive Member Role Status Tawanna Clark MD Primary Care Provide r, Attending Provider Active Start: August 30, 2023 End: August 30, 2023 Team Status: Inactive Member Role Status Tawanna Clark MD Primary Care Provider Active Start: September 13, 2023 End: September 13, 2023 Willy Yancey MD Attending Provider Active Start: September 13, 2023 End: September 13, 2023 NORA Izaguirre Referring Provider Active Start: September 13, 2023 End: September 13, 2023 Team Status: Inactive Member Role Status Tawanna Clark MD Primary Care Provider Active Start: September 13, 2023 End: September 13, 2023 Willy Yancey MD Attending Provider Active Start: September 13, 2023 End: September 13, 2023 Team Status: Inactive Member Role Status Tawanna Clark MD Primary Care Provider Active Start: [...] October 15, 2023 End: October 15, 2023 Team Status: Inactive Member Role Status Dates Vashti Clark MD Primary Care Provider Active Start: December 13, 2023 End: December 13, 2023 Jose Najera II, MD Attending Provider Active Start: December 13, 2023 End: December 13, 2023 Goals (unrecognized section and content) Goals may be documented in a n alternate section INFORMATION SOURCE (unrecogn ized section and content) DATE CREATED AUTHOR 12/22/2022 [facility] DATE CREATED AUTHOR AUTHOR'S ORGANIZ ATION 06/20/2023 [facility] DATE CREATED AUTHOR AUTHOR'S ORGANIZ ATION 09/16/2023 [facility] DATE CREATED AUTHOR AUTHOR'S ORGANIZ ATION 11/25/2023 [facility] FOR RECORDS PERTAINING TO PATIENTS WHO ARE [...] BE BASED ON THE PRIMARY CLINICAL RECORDS. [email or web address] provides no warranty or guarantee of the accuracy or completeness of information in this document.
[2023-12-26] MEDS: TRAMADOL HCL 50 MG TABLET PO (20:28)
[2023-12-26] MEDS: ATORVASTATIN CALCIUM 40 MG TABLET PO (22:33)
[2023-12-26] MEDS: APIXABAN 5 MG TABLET PO (22:33)
[2023-12-27] VITALS (7 sets, daily range): BP systolic 105–144; BP diastolic 60–85; PULSE 68–96; TEMP 36.3–36.7; O2SAT 93–94
[2023-12-27] MEDS: TRAMADOL HCL 50 MG TABLET PO ×2 (03:22→14:40)
[2023-12-27 05:27] LABS: Hematocrit 34.7 % (36.0-48.0); Hemoglobin 11.3 g/dL (12.0-16.0); Mean Corpuscular HGB Conc 32.6 g/dL (29.9-35.2); Mean Corpuscular Hemoglobin 30.5 pg (26.7-34.0); Mean Corpuscular Volume 93.5 fL (81.0-99.0); Mean Platelet Volume 10.9 fL (9.5-13.5); Platelet Count 183 10^3/uL (150-450); Red Blood Count 3.71 10^6/uL (4.20-5.40); Red Cell Distribution Width 15.9 % (11.0-15.0); White Blood Count 7.6 10^3/uL (4.0-11.0)
[2023-12-27 05:35] LABS: BUN Creatinine Ratio 32.1; Calcium 8.7 mg/dL (8.5-10.1); Carbon Dioxide 22.5 mmol/L (21.0-32.0); Chloride 109 mmol/L (98-107); Estimated GFR (African America 57 (>=60); Estimated GFR (Non-African Ame 47 (>=60); Glucose 94 mg/dL (74-106); Potassium 3.5 mmol/L (3.5-5.1); Sodium 139 mmol/L (136-145)
--- NOTE | 2023-12-27 08:04 | P.ORCN_ITS ---
History of Present Illness HPI Consult date: 12/27/23 Chief complaint: LOWER LEFT EXTREMITY PAIN/INJURY IT Tibial Plateau Narrative: 73-year-old female presented to the [place] ED yesterday with a main complaint of left knee pain after a fall on 12/24/2023. She [facility] and was told her pain was likely from her severe OA. Yesterday she presented to her pain management office as she has not been able to put weight on her left leg since the fall. An x-ray was ordered outpatient which showed a tibial plateau fracture and she was referred to the ED for further evaluation and management. She does live alone and has 3 steps to get into her house. Orthopedics was consulted for her left tibial plateau fracture and she was admitted for pain control and disposition. The patient states that she has been wanting to get a total knee done on her left side but has had blood flow issues that have prevented her from getting this. She states that she is seeing a Vascular physician soon to address some of these issues. She is on Eliquis for history of DVT. The patient complains of severe left knee pain and swelling. [facility] Medical History (Updated 12/27/23 @ 08:05 by Torie Soto NP) Lumbar spondylosis ?M47.816 - Spondylosis without myelopathy or radiculopathy, lumbar region (I CD-10) Osteoarthritis of left knee ?M17.12 - Unilateral primary osteoarthritis, left knee (ICD-10) DVT (deep venous thrombosis) ?I82.409 - Acute embolism and thrombosis of unspecified deep veins of unspecified lower extremity (ICD-10) Low back pain ?M54.50 - Low back pain, unspecified (ICD-10) Osteoarthritis ?M19.90 - Unspecified osteoarthritis, unspecified site (ICD-10) PAD (peripheral artery disease) ?I73.9 - Peripheral vascular disease, unspecified (ICD-10) Hiatal hernia ?K44.9 - Diaphragmatic hernia without obstruction or gangrene (ICD-10) Heartburn ?R12 - Heartburn (ICD-10) Hypertension ?I10 - Essential (primary) hypertension (ICD-10) Surgical History H/O exploratory laparotomy ?Z98.890 - Other specified postprocedural states (ICD-10) History of knee replacement ?Z96.659 - Presence of unspecified artificial knee joint (ICD-10) History of hip replacement ?Z96.649 - Presence of unspecified artificial hip joint (ICD-10) Family History (Updated 12/26/23 @ 20:21 by Ashwini Goldsmith RN) Father Family history of CHF (congestive heart failure) Mother Family history of myocardial infarction Sister Family history of cancer Family history of hypertension Family history of stroke Social History (Updated 12/26/23 @ 20:24 by Ashwini Goldsmith RN) Within the past year, how often did you have a drink containing alcohol: monthly or less Within the past year, how many standard drinks containing alcohol did you have on a typical day: 1 or 2 Within the past year, how often did you have six or more drinks on one occasion: never Total score: 0 Score interpretation: A score less than 3 is consistent with normal alcohol consumption. 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 Highest level of school completed/degree received: Associate degree: occupational, technical, vocational program Are you now , , , , never or living with a partner: In a typical week, how many times do you talk on the telephone with family, friends, or neighbors: 3 or more times per week How often do you get together with friends or relatives: once per week How often do you attend baptist or christianity services: never Little interest or pleasure in doing things: not at all Feeling down, depressed, or hopeless: not at all Feel stressed/tense/nervous/anxious/difficulty sleeping: not at all Do you think of yourself as: straight/heterosexual Gender Identity: female Meds Home Medications and Allergies Home Medications ?Medication ?Instructions ?Recorded ?Confirmed ?Type apixaban 5 mg tablet (Eliquis) 5 mg PO BID 09/24/23 12/26/23 History atorvastatin 40 mg tablet 40 mg PO DAILY 09/24/23 12/26/23 History diclofenac sodium 75 mg 75 mg PO Q12H PRN pain 09/24/23 12/26/23 History tablet,delayed release metoprolol succinate 100 mg 100 mg PO DAILY 09/24/23 12/26/23 History tablet,extended release 24 hr verapamil 180 mg tablet,extended 180 mg PO DAILY 09/24/23 12/26/23 History release tramadol 50 mg tablet 50 mg PO DAILY PRN pain #7 tabs 12/26/23 12/26/23 Rx Allergies Allergy/AdvReac Type Severity Reaction Status Date / Time No Known Drug Allergies Allergy Verified 11/19/23 08:54 Exam Constitutional Vital Signs, click to edit/add: Last Vital Signs Temp 97.4 F L 12/27/23 07:53 Pulse 96 H 12/27/23 07:53 Resp 18 12/27/23 07:53 BP 132/79 12/27/23 07:53 Pulse Ox 94 L 12/27/23 07:53 O2 Del Method Room Air 12/27/23 07:53 Extremity Other: On exam patient is lying in the bed and in no distress, age-appropriate, alert and oriented x 3. On inspection her left knee has a joint effusion with swelling extending down to her left foot. There is ecchymosis to the lateral joint line and a mild amount to the medial joint line. Left knee is laying in full extension, limited flexion secondary to pain. She is distally neurovascularly intact with 5/5 DF/PF. She has baseline peripheral neuropathy to the bottom of her foot but is sensory intact to light touch on the dorsal aspect of the left foot. 2+ DP pulse palpated. Results Labs Labs: Abnormal lab results 12/26/23 12/27/23 Range/Units 14:07 04:12 WBC 11.3 H (4.0-11.0) 10^3/uL RBC 3.71 L (4.20-5.40) 10^6/uL Hgb 11.3 L (12.0-16.0) g/dL Hct 34.7 L (36.0-48.0) % RDW 15.9 H 15.9 H (11.0-15.0) % Neut % (Auto) 85.2 H (43.0-75.0) % Lymph % (Auto) 9.1 L (20.5-60.0) % Eos % (Auto) 0.2 L (0.9-7.0) % Neut # (Auto) 9.6 H (1.4-6.5) 10^3/uL Lymph # (Auto) 1.0 L (1.2-3.8) 10^3/uL Abs Immat Gran (auto) 0.12 H (0.00-0.03) 10^3/uL Imm/Tot Granulo (auto) 1.1 H (0.0-0.5) % Chloride 109 H (98-107) mmol/L BUN 42.0 H 36.0 H (7.0-18.0) mg/dL Creatinine 1.79 H 1.12 H (0.55-1.02) mg/dL Est GFR ( Amer) 33 L 57 L (>=60) Est GFR (Non-Af Amer) 28 L 47 L (>=60) Glucose 123 H (74-106) mg/dL Total Protein 6.2 L (6.4-8.2) g/dL Albumin 3.0 L (3.4-5.0) g/dL H & H 12/26/23 12/27/23 Range/Units 14:07 04:12 Hgb 13.1 11.3 L (12.0-16.0) g/dL Hct 40.3 34.7 L (36.0-48.0) % Coagulation 12/26/23 Range/Units 14:07 INR 1.07 All other labs normal. Assessment and Plan Assessment and Plan (1) Closed fracture of left tibial plateau: Plan Left leg lateral tibial plateau fracture - X-ray reviewed taken in ED: Complex intra-articular fracture involving the lateral proximal tibia. - CT left knee without contrast reviewed and again demonstrates the severely comminuted intra-articular fracture of the lateral tibial plateau with depression of the articular surface of 7 mm. - Recommend nonoperative treatment of her fracture - Knee immobilizer - Nonweightbearing LLE - PT/OT evaluations, may need SNF as patient lives alone and will need to be non weightbearing for at least 8 weeks. - She can follow-up with Dr. Stinson in our [facility] office on 01/06, patient will need to call to set up an appointment time. Case and plan discussed with my attending Dr. Stinson.
[2023-12-27] MEDS: METOPROLOL SUCCINATE 100 MG TAB.ER.24H PO (08:38)
[2023-12-27] MEDS: APIXABAN 5 MG TABLET PO ×2 (08:38→21:22)
[2023-12-27] MEDS: ACETAMINOPHEN 325 MG TABLET 650 MG PO ×2 (08:38→14:40)
[2023-12-27] MEDS: POLYETHYLENE GLYCOL 3350 17 GM POWDER PACKET PO (08:38)
[2023-12-27] MEDS: VERAPAMIL HCL 180 MG ER TABLET PO (08:38)
--- NOTE | 2023-12-27 10:45 | US_ITS ---
The [address] [address] Patient Name: LINDA BARBOSA MRN: [id number] date: 1950 Sex: F Assigned Patient Location: [place] Current Patient Location: [place] Accession/Order Number: [id number] Exam Date: 12/27/2023 11:14 Report Date: 12/27/2023 11:48 At the request of: MICAELA HURTADO Procedure: US extremity nonvascular LT EXAMINATION: US extremity nonvascular LT HISTORY: ??Hematoma vs cyst COMPARISON: CT exam 12/26/2023 FINDINGS: Identified in the left popliteal space is a 9.8 x 8.9 x 4.0 cm heterogeneous fluid collection. No internal color flow is demonstrated. US/US extremity nonvascular LT IMPRESSION: Complex fluid collection medial popliteal fossa. I favor a popliteal cyst over a hematoma Electronically authenticated by: NIKHIL ANTHONY Date: 12/27/2023 11:48
--- NOTE | 2023-12-27 11:39 | CM.NOTE ---
Rounds made with Dr. Georges. Dr. Georges reviews plan of care with Aleks. Awaiting Ortho consult. No discharge today.
--- NOTE | 2023-12-27 12:05 | SWNOTE1 ---
SW spoke to case management and pt would like to go to rehab and she would like the [facility]. SW did also speak to AUTO BUMPER STRAIGHTENER and pt will be made IP today, but unsure if she will meet criteria for 3 day IP stay. Ortho will come see pt. SW to speak with pt about medicare guidelines for SNF.
--- NOTE | 2023-12-27 12:37 | SWNOTE1 ---
Referral sent to [facility]. Referral included face sheet, ED note, H&P, provider notes, case management report, wound consult, nursing notes, diagnostic imaging, med list, and PT/OT notes. Pt did not want to review list from medicare.gov, she already knew she wanted the [facility].
--- NOTE | 2023-12-27 13:07 | P.HP_ITS ---
<Statement entered by Samuel Georges MD - 12/27/23 21:32> Patient seen and examined, agree with assessment and plan below. Presented tibial plateau fracture after fall. Seen by ortho and recommend NWB. Start PT/OT. Use ultram PRN for pain. Resume home medication. Likely will need SNF upon discharge. Diagnosis: 1. Left tibeal plateau fracture 2. JENIFER 3. Dehydration 4. DVT 5. HTN HPI H&P: HPI History of Present Illness Chief complaint: LOWER LEFT EXTREMITY PAIN/INJURY IT Tibial Plateau Narrative: 12/27/23 1015 This is a 73-year-old female patient with a past medical history as outlined below including lumbar spondylosis, osteoarthritis of the left knee, DVT, PAD, GERD, and hypertension; who presented to the ED yesterday afternoon complaining of persistent left knee pain after a fall on Sunday. The patient reports a mechanical trip and fall, and denies any prodromal symptoms contributing to her fall including no dizziness, shortness of breath, chest pain or any other acute complaint. She did not strike her head and did not experience loss of consciousness. She had to have assistance by family members to stand up again and found that her pain in the left knee was so severe she was unable to ambulate. She essentially sat in a chair for 2 days but did ambulate back and forth to the bathroom with extreme difficulty. An outpatient x-ray was ordered by her pain management provider and she was sent directly to the ED from the radiology department as a comminuted fracture of the tibial plateau was noted. Workup in the ED showed mild leukocytosis (11.3 likely reactive), JENIFER (BUN 42, CR 1.79, GFR 28?baseline CKD 2), and other labs were unremarkable. Dr. Stinson, orthopedic surgeon, was contacted by the ED provider and he requested a CT of the knee be performed. This was done in the ED and confirmed a severely comminuted intra-articular fracture of the lateral tibial plateau with depression of the articular surface of 7 mm. Chronic, severe osteoarthritis was also noted. In addition, a large complex fluid collection extending from the posterior lateral aspect of the femoral-tibial joint region along the posterior aspect of the proximal tibial metadiaphysis was also noted and suspected to be a cyst. Dr. Stinson indicated this was a nonsurgical fracture but as the patient's pain was severe and she was nonambulatory, he requested that she be admitted to the hospital for pain control and he would see the patient in consult. That she was admitted initially in observation to the hospitalist service yesterday evening. At the time of my exam the patient is resting comfortably in a bedside chair. She was able to transfer from the bed to the chair with the assistance of PT, a walker, and she noted extreme difficulty just with stand pivot. She has already been seen in consult by the orthopedic OPERATOR [employer]IST COMMUNICATIONS who recommends the patient be nonweightbearing to that extremity for 8 weeks and an immobilizer is to remain in place. As the patient also exhibits JENIFER and dehydration, we have changed her admission to an inpatient status as she will require IV fluids and close monitoring of her labs until this resolves and we expect greater than a 2 midnight stay. We will also order a US of her LLE to further evaluate the fluid collection adjacent to her fracture as she is on a blood thinner and we want to rule out a hematoma. She will likely need placement at a local SNF for rehab therapy pending clinical course. Opioid HPI Opioid Management Most Recent Opioid Data: Last Pain Scale 4 12/27/23 10:00 Last Pain Assessment 12/27/23 10:00 Last MAR Pain Assessment 12/27/23 09:38 Last ORT Total Score 1 12/26/23 20:11 Last ORT Risk Category Low Risk 12/26/23 20:11 Review of Systems ROS Status of ROS 10 or more systems reviewed and unremark able except as noted in history and below [facility] Medical History (Updated 12/27/23 @ 13:38 by Torie Soto NP) Hyperlipidemia ?E78.5 - Hyperlipidemia, unspecified (ICD-10) Lumbar spondylosis ?M47.816 - Spondylosis without myelopathy or radiculopathy, lumbar region (ICD-10) Osteoarthritis of left knee ?M17.12 - Unilateral primary osteoarthritis, left knee (ICD-10) DVT (deep venous thrombosis) ?I82.409 - Acute embolism and thrombosis of unspecified deep veins of unspecified lower extremity (ICD-10) Low back pain ?M54.50 - Low back pain, unspecified (ICD-10) Osteoarthritis ?M19.90 - Unspecified osteoarthritis, unspecified site (ICD-10) PAD (peripheral artery disease) ?I73.9 - Peripheral vascular disease, unspecified (ICD-10) Hiatal hernia ?K44.9 - Diaphragmatic hernia without obstruction or gangrene (ICD-10) Heartburn ?R12 - Heartburn (ICD-10) Hypertension ?I10 - Essential (primary) hypertension (ICD-10) Surgical History H/O exploratory laparotomy ?Z98.890 - Other specified postprocedural states (ICD-10) History of knee replacement ?Z96.659 - Presence of unspecified artificial knee joint (ICD-10) History of hip replacement ?Z96.649 - Presence of unspecified artificial hip joint (ICD-10) Family History (Updated 12/26/23 @ 20:21 by Ashwini Goldsmith RN) Father Family history of CHF (congestive heart failure) Mother Family history of myocardial infarction Sister Family history of cancer Family history of hypertension Family history of stroke Social History (Updated 12/26/23 @ 20:24 by Ashwini Goldsmith RN) Within the past year, how often did you have a drink containing alcohol: monthly or less Within the past year, how many standard drinks containing alcohol did you have on a typical day: 1 or 2 Within the past year, how often did you have six or more drinks on one occasion: never Total score: 0 Score interpretation: A score less than 3 is consistent with normal alcohol co nsumption. 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 Known occupational exposures/hazards: Yes Known occupational exposures/hazards details: april Highest level of school completed/degree received: Associate degree: occupati onal, technical, vocational program Are you now , , , , never or living with a partner: In a typical week, how many times do you talk on the telephone with family, friends, or neighbors: 3 or more times per week How often do you get together with friends or relatives: once per week How often do you attend uatsdin or bahai services: never Little interest or pleasure in doing things: not at all Feeling down, depressed, or hopeless: not at all Feel stressed/tense/nervous/anxious/difficulty sleeping: not at all Do you think of yourself as: straight/heterosexual Gender Identity: female Meds Home Medications and Allergies Home Medications ?Medication ?Instructions ?Recorded ?Confirmed ?Type apixaban 5 mg tablet (Eliquis) 5 mg PO BID 09/24/23 12/26/23 History atorvastatin 40 mg tablet 40 mg PO DAILY 09/24/23 12/26/23 History diclofenac sodium 75 mg 75 mg PO Q12H PRN pain 09/24/23 12/26/23 History tablet,delayed release metoprolol succinate 100 mg 100 mg PO DAILY 09/24/23 12/26/23 History tablet,extended release 24 hr verapamil 180 mg tablet,extended 180 mg PO DAILY 09/24/23 12/26/23 History release tramadol 50 mg tablet 50 mg PO DAILY PRN pain #7 tabs 12/26/23 12/26/23 Rx Allergies Allergy/AdvReac Type Severity Reaction Status Date / Time No Known Drug Allergies Allergy Verified 11/19/23 08:54 Exam Constitutional Vital Signs, click to edit/add: Last Vital Signs Temp 97.4 F L 12/27/23 07:53 Pulse 96 H 12/27/23 07:53 Resp 18 12/27/23 07:53 BP 132/79 12/27/23 07:53 Pulse Ox 94 L 12/27/23 07:53 O2 Del Method Room Air 12/27/23 07:53 Common normals: no apparent distress, oriented x3, alert and well nourished General appearance: cooperative Orientation/consciousness: Yes awake HENSD Common normals: normocephalic, head/scalp atraumatic, hearing grossly normal bilaterally, external nose normal and moist oral mucous membranes Eye Common normals: PERRL, EOMs intact bilaterally, conjunctivae normal and no scleral icterus Neck & C-Spine Common normals: full ROM, supple and no JVD Chest Common normals: inspection of chest normal Chest: symmetrical chest wall rise Respiratory Common normals: normal respiratory effort, no retractions, no use of accessory muscles and clear to auscultation bilaterally Effort & inspection: able to speak in complete sentences Cardio Common normals: no JVD, regular rate, regular rhythm, S1 normal heart sound, S2 normal heart sound, no gallops, no clicks, no murmurs, no rub and peripheral pulses 2+ throughout GI Common normals: Normal to inspection, nondistended, normoactive bowel sounds present, soft to palpation, non-tender, no hepatosplenomegaly, no masses and no bruits Bladder/kidney exam: bladder normal to palpation Back & Pelvis Common normals: thoracic and lumbar spine normal to inspection Extremity Common normals: normal capillary refill General: normal exam except as noted and edema (Trace bilat insteps/ankles); no clubbing and no cyanosis Left lower extremity: knee joint (Brace in place, swollen knee & upper calf, no visible bruising around brace) Neuro [place] Coma Scale: GCS not evaluated Common normals: CN's II-XII intact bilaterally, moves all extremities, no focal motor deficits and no sensory deficits noted Speech: speech normal Motor exam: strength 5/5 throughout Psych Common normals: mental status grossly normal, thought process normal, affect normal and activity/motor behavior normal Results Labs Labs: Short CBC 12/26/23 12/27/23 Range/Units 14:07 04:12 WBC 11.3 H 7.6 (4.0-11.0) 10^3/uL Hgb 13.1 11.3 L (12.0-16.0) g/dL Hct 40.3 34.7 L (36.0-48.0) % Plt Count 237 183 (150-450) 10^3/uL BMP 12/26/23 12/27/23 14:07 04:12 Sodium 140 139 Potassium 4.0 3.5 Chloride 105 109 H Carbon Dioxide 24.4 22.5 BUN 42.0 H 36.0 H Creatinine 1.79 H 1.12 H Glucose 123 H 94 Calcium 9.2 8.7 Liver Function 12/26/23 Range/Units 14:07 Total Bilirubin 0.8 (0.2-1.0) mg/dL AST 21 (15-37) U/L ALT 26 (14-59) U/L Alkaline Phosphatase 107 (46-116) U/L Albumin 3.0 L (3.4-5.0) g/dL Pulse Oximetry Attestation: I have reviewed the pertinent pulse oximetry results. Imaging CT LLE: Attestation: I have reviewed the pertinent imaging results. Radiologist's impression: IMPRESSION: 1. There is a similar appearance of a severely comminuted intra-articular fracture of the lateral tibial plateau with depression of the articular surface of 7 mm. 2. Tricompartmental osteoarthritis which appears severe in the lateral and patellofemoral compartments. 3. Atherosclerotic vascular disease. Assessment and Plan Assessment and Plan (1) Closed fracture of left tibial plateau: Assessment and Plan: Acute * Adm inpatient (initially admitted in observation) * We expect greater than a 2 midnight stay for specialty orthopedic care, PT/OT services, IVF, frequent lab monitoring * C/S Orthopedic Surgeon - we appreciate Dr Stinson's assistance with this pt's care * Non-surgical fracture * Maintain knee immobilizer * NWB x 8 weeks * Tramadol for pain * Follow up outpatient after discharge * PT/OT eval and treat - pt unable to ambulate independently at this time (2) Dehydration: Assessment and Plan: Acute * Suspect d/t poor PO fluid intake x 2 days when pt was unable to walk d/t severe pain * Pre-renal azotemia on ED labs * LR IVF @ 125/hr * Push oral fluids * CMP daily (3) JENIFER (acute kidney injury): Assessment and Plan: Acute * Suspect d/t dehydration * Oliguria - Scant urine output overnight * Baseline renal fx: CKD 2 * IVF as above * Hold renal toxic meds (i.e. verapamil, diclofenac) * CMP daily (4) DVT (deep venous thrombosis): Assessment and Plan: Chronic * Continue home Eliquis (5) Hyperlipidemia: Assessment and Plan: Chronic * Continue home statin (6) Osteoarthritis: Assessment and Plan: Chronic * Hold home diclofenic d/t JENIFER * Tramadol for pain (7) Hypertension: Assessment and Plan: Chronic * Continue home Toprol * Hold home verapamil d/t JENIFER * PRN Hydralazine IVP for uncontrolled HTN
[2023-12-27] MEDS: LACTATED RINGER'S SOLUTION 1,000 ML 125 ML IV ×2 (14:39→21:22)
--- NOTE | 2023-12-27 15:21 | CM.NOTE ---
Important Message from Medicare reviewed and discussed with patient. Pt. verbalized understanding and signed the form. Original given to patient and copy placed in patient?s chart.
--- NOTE | 2023-12-27 15:45 | SWNOTE1 ---
[facility] has accepted pt whenever she is ready for discharge.
[2023-12-27] MEDS: ATORVASTATIN CALCIUM 40 MG TABLET PO (21:22)
[2023-12-28] MEDS: ACETAMINOPHEN 325 MG TABLET 650 MG PO ×3 (03:16→23:14)
[2023-12-28] MEDS: TRAMADOL HCL 50 MG TABLET PO ×2 (03:17→23:14)
[2023-12-28 05:54] VITALS: BP 119/71; PULSE 97; TEMP 36.5; O2SAT 95
[2023-12-28 08:25] VITALS: BP 179/73; PULSE 101; TEMP 36.5; O2SAT 96
--- NOTE | 2023-12-28 08:43 | CM.NOTE ---
Rounds made with Dr. Georges. All questions answered by Dr. Georges. Still with complaints of pain with any movement. No discharge today.
[2023-12-28] MEDS: METOPROLOL SUCCINATE 100 MG TAB.ER.24H PO (08:47)
[2023-12-28] MEDS: POLYETHYLENE GLYCOL 3350 17 GM POWDER PACKET PO (08:47)
[2023-12-28] MEDS: APIXABAN 5 MG TABLET PO ×2 (08:47→21:19)
--- NOTE | 2023-12-28 09:50 | PM.PN ---
Progress Note: Subjective Subjective Interval history: Patient feels well today. No pain at rest and increased pain with movement. Had a very difficult time moving and remaining NWB on left leg. very unsteady and required a lot of assistance. Afebrile. Normal appetite and no emesis or diarrhea. No chest pain or palpitations. No SOB or cough. Exam Constitutional Vital Signs, click to edit/add: Last Vital Signs Temp 97.7 F 12/28/23 08:25 Pulse 101 H 12/28/23 08:25 Resp 18 12/28/23 08:25 BP 179/73 H 12/28/23 08:25 Pulse Ox 96 12/28/23 08:25 O2 Del Method Room Air 12/28/23 08:25 Documenting provider has reviewed patient's vital signs: yes Common normals: no apparent distress, oriented x3 and alert HENMT Common normals: normocephalic Eye Common normals: PERRL and EOMs intact bilaterally Respiratory Common normals: normal respiratory effort and clear to auscultation bilaterally Cardio Common normals: regular rate, regular rhythm, no gallops, no murmurs and no rub GI Common normals: Normal to inspection, nondistended, normoactive bowel sounds present and non-tender Extremity Common normals: no pedal edema Progress Note: A&P Assessment and Plan (1) Closed fracture of left tibial plateau: (2) Dehydration: (3) JENIFER (acute kidney injury): (4) DVT (deep venous thrombosis): (5) Hypertension: Plan Patient stable this am. Pain tolerable with medication. Having a very difficult time moving and remaining NWB. Continue PT/OT and likely will need SNF. BP controlled and monitor vitals.
[2023-12-28 10:45] VITALS: BP 149/81; PULSE 95; O2SAT 98
--- NOTE | 2023-12-28 10:51 | PT.DAILY ---
Physical Therapy Daily Note PT Daily Note/Assess Start: 12/28/23 10:39 Freq: Status: Active Protocol: Document 12/28/23 10:39 TYREL (Rec: 12/28/23 10:51 TYREL [id number]) Physical Therapy Daily Note/Assessment Time In/Time Out Time In 09:30 Time Out 09:50 Pain In Pain N/A Pain Out Pain N/A Subjective Subjective Pt sitting in BS chair upon arrival with L LE propped up. Agrees to PT. No pain at rest. Therapeutic Exercise Time Therapeutic Exercise Minutes (minutes) 3 Therapeutic Exercise Units 0 Therapeutic Exercise Treatment Therapeutic Exercise Treatment Seated AP, L LE quad sets, glute sets, R LAQ and marches 10x ea. Therapeutic Activity Time Therapeutic Activity Minutes (minutes) 7 Therapeutic Activity Units 1 Therapeutic Activity Treatment Chair Transfer Ability Minimum Assist Therapeutic Activity Comments Sit>stand Avery. Pivot to BS commode with Avery. Needs assistance to get underwear down. Pt uses commode. Sit> stand Avery and static stands At RW as needs assistance with pericare. Stand pivot back to BS chair with CGA this attempt. Pt remains in BS chair upon completion. Total Physical Therapy Time Total Therapy Minutes 10 Total Physical Therapy Units 1 Summary Daily Note Summary Increased pain with transfer /10 with transfers.
[2023-12-28 14:00] VITALS: BP 155/84; PULSE 95; TEMP 36.6; O2SAT 96
--- NOTE | 2023-12-28 14:00 | SWNOTE1 ---
Updates sent to [facility]. NGUYEN completed. SW took packet to med/surge floor for likely discharge over the weekend.
[2023-12-28 20:00] VITALS: BP 147/93; PULSE 90; TEMP 36.5; O2SAT 98
[2023-12-28] MEDS: ATORVASTATIN CALCIUM 40 MG TABLET PO (21:19)
[2023-12-29] VITALS: BP 146/80; PULSE 108; TEMP 36.6; O2SAT 96
[2023-12-29 04:00] VITALS: PULSE 95
[2023-12-29 04:05] VITALS: BP 133/70; PULSE 95; TEMP 36.4; O2SAT 92
--- NOTE | 2023-12-29 07:45 | PM.PN ---
Progress Note: Subjective Subjective Interval history: Patient is doing well today, pain controlled. She would like her verapamil added back as she takes at home. She would like to go to the [facility] for rehab given NWB status. Overall no other complaints or issues. Knee is in immobilizer Exam Narrative Exam Narrative: General: Patient is alert, and oriented to person, place and time with normal affect, proper hygiene Skin: no visible rashes, or ulcers Head: atraumatic, acephalic Eyes: PERRLA, no nystagmus present, conjunctiva clear, no scleral icterus Ears: normal gross auditory acuity Heart: Normal rate and rhythm, no murmurs/rubs/gallops Lungs: no audible wheezes, crackles and normal breath sounds all lung wise Neuro: CN II-X grossly intact Constitutional Vital Signs, click to edit/add: Last Vital Signs Temp 97.5 F L 12/29/23 04:05 Pulse 95 H 12/29/23 04:05 Resp 18 12/29/23 04:05 BP 133/70 12/29/23 04:05 Pulse Ox 92 L 12/29/23 04:05 O2 Del Method Room Air 12/29/23 04:05 Progress Note: A&P Assessment and Plan (1) Closed fracture of left tibial plateau: Assessment and Plan: Patient is NWB per ORtho for 6 weeks, in immobilizer, patient to rehab facility tomorrow, continue with pain control (2) Dehydration: Assessment and Plan: Cr 0.93, will stop IVF (3) JENIFER (acute kidney injury): Assessment and Plan: resolved (4) DVT (deep venous thrombosis): Assessment and Plan: continue eliquis (5) Hypertension: Assessment and Plan: continue metoprolol, Verapamil. Plan Patient is a full code continue eliquis patient is inpatient status and [facility], continue to work with PT/OT
[2023-12-29 08:01] LABS: Basophils Percent Auto 0.4 % (0.2-2.0); Eosinophils Absolute Auto 0.1 10^3/uL (0.0-0.7); Eosinophils Percent Auto 1.3 % (0.9-7.0); Hematocrit 35.7 % (36.0-48.0); Hemoglobin 11.7 g/dL (12.0-16.0); Immature Granulocytes Pct Auto 1.8 % (0.0-0.5); Lymphocytes Absolute Auto 1.1 10^3/uL (1.2-3.8); Lymphocytes Percent Auto 19.3 % (20.5-60.0); Mean Corpuscular HGB Conc 32.8 g/dL (29.9-35.2); Mean Corpuscular Hemoglobin 30.9 pg (26.7-34.0); Mean Corpuscular Volume 94.2 fL (81.0-99.0); Mean Platelet Volume 10.1 fL (9.5-13.5); Monocytes Absolute Auto 0.3 10^3/uL (0.3-0.8); Monocytes Percent Auto 6.1 % (1.7-12.0); Neutrophils Absolute Auto 3.9 10^3/uL (1.4-6.5); Neutrophils Percent Auto 71.1 % (43.0-75.0); Platelet Count 175 10^3/uL (150-450); Red Blood Count 3.79 10^6/uL (4.20-5.40); Red Cell Distribution Width 16.1 % (11.0-15.0); White Blood Count 5.5 10^3/uL (4.0-11.0)
[2023-12-29 08:13] LABS: Alanine Aminotransferase 24 U/L (14-59); Albumin Globulin Ratio 0.7; Albumin Level 2.2 g/dL (3.4-5.0); Alkaline Phosphatase 101 U/L (46-116); Anion Gap 11.4; Aspartate Amino Transferase 19 U/L (15-37); BUN Creatinine Ratio 22.6; Bilirubin Total 0.5 mg/dL (0.2-1.0); Calcium 8.5 mg/dL (8.5-10.1); Carbon Dioxide 26.9 mmol/L (21.0-32.0); Chloride 108 mmol/L (98-107); Estimated GFR (African America >60 (>=60); Estimated GFR (Non-African Ame 59 (>=60); Glucose 96 mg/dL (74-106); Potassium 4.3 mmol/L (3.5-5.1); Sodium 142 mmol/L (136-145); Total Protein 5.2 g/dL (6.4-8.2)
[2023-12-29 08:28] VITALS: BP 159/93; PULSE 103; TEMP 36.5; O2SAT 94
[2023-12-29] MEDS: APIXABAN 5 MG TABLET PO ×2 (08:29→20:50)
[2023-12-29] MEDS: ACETAMINOPHEN 325 MG TABLET 650 MG PO ×2 (08:29→16:40)
[2023-12-29] MEDS: METOPROLOL SUCCINATE 100 MG TAB.ER.24H PO (08:29)
[2023-12-29] MEDS: TRAMADOL HCL 50 MG TABLET PO ×2 (08:29→16:40)
--- NOTE | 2023-12-29 09:21 | REH.PTDLY ---
Physical Therapy Daily Note PT Daily Note/Assess Start: 12/28/23 10:39 Freq: Status: Active Protocol: [facility]29[facility]23 09:[id number] Physical Therapy Daily Note/Assessment Time In 08:58 Time Out 09:15 Subjective Pt received pain meds about 30 mins ago, pain has improved. Currently a 5/10. Therapeutic Exercise Minutes (minutes) 3 Therapeutic Exercise Units 0 Therapeutic Exercise Treatment Instructed in seated AP, LAQ on R LE and marching with R LE for strength. Therapeutic Activity Minutes (minutes) 8 Therapeutic Activity Units 1 Bed Mobility Ability Minimum Assist Chair Transfer Ability Contact Guard Assist Therapeutic Activity Comments Pt requires Min A with L LE with supine to sit transfers. Pt sat bedside and with bed slightly raised performed sit to stand transfer CGA NWB on L LE. Pt performs stand pivot transfer with RW from bed to chair maintaining NWB on L. Once in chair with L LE elevated adjusted immobilizer as this has slide down some on pt's leg during transfer. Total Therapy Minutes 11 Total Physical Therapy Units 1 Daily Note Summary Pt only able to perform stand pivot transfers at this time as she is not strong enough to hop on 1 leg to maintain NWB. Pt will need to go to SNF for rehab to become stronger prior to returning home.
[2023-12-29 16:36] VITALS: BP 140/91; PULSE 94; TEMP 36.6; O2SAT 96
[2023-12-29 20:41] VITALS: BP 143/63; PULSE 18; TEMP 36.4; O2SAT 95
[2023-12-29] MEDS: ATORVASTATIN CALCIUM 40 MG TABLET PO (21:50)
[2023-12-30] MEDS: TRAMADOL HCL 50 MG TABLET PO ×2 (02:36→10:53)
[2023-12-30 04:34] VITALS: BP 165/73; PULSE 110; TEMP 36.4; O2SAT 94
[2023-12-30 04:58] LABS: Basophils Percent Auto 0.5 % (0.2-2.0); Eosinophils Absolute Auto 0.1 10^3/uL (0.0-0.7); Eosinophils Percent Auto 1.2 % (0.9-7.0); Hematocrit 36.4 % (36.0-48.0); Hemoglobin 11.6 g/dL (12.0-16.0); Immature Granulocytes Abs Auto 0.09 10^3/uL (0.00-0.03); Immature Granulocytes Pct Auto 1.4 % (0.0-0.5); Lymphocytes Absolute Auto 1.3 10^3/uL (1.2-3.8); Lymphocytes Percent Auto 19.7 % (20.5-60.0); Mean Corpuscular HGB Conc 31.9 g/dL (29.9-35.2); Mean Corpuscular Hemoglobin 30.1 pg (26.7-34.0); Mean Corpuscular Volume 94.3 fL (81.0-99.0); Mean Platelet Volume 10.8 fL (9.5-13.5); Monocytes Absolute Auto 0.5 10^3/uL (0.3-0.8); Neutrophils Absolute Auto 4.6 10^3/uL (1.4-6.5); Neutrophils Percent Auto 70.2 % (43.0-75.0); Platelet Count 188 10^3/uL (150-450); Red Blood Count 3.86 10^6/uL (4.20-5.40); Red Cell Distribution Width 16.3 % (11.0-15.0); White Blood Count 6.6 10^3/uL (4.0-11.0)
[2023-12-30 05:20] LABS: Alanine Aminotransferase 22 U/L (14-59); Albumin Globulin Ratio 0.8; Albumin Level 2.3 g/dL (3.4-5.0); Alkaline Phosphatase 110 U/L (46-116); Anion Gap 10.7; Aspartate Amino Transferase 13 U/L (15-37); BUN Creatinine Ratio 24.4; Bilirubin Total 0.5 mg/dL (0.2-1.0); Calcium 8.8 mg/dL (8.5-10.1); Carbon Dioxide 25.4 mmol/L (21.0-32.0); Chloride 108 mmol/L (98-107); Estimated GFR (African America >60 (>=60); Estimated GFR (Non-African Ame >60 (>=60); Globulin 2.9 g/dL; Glucose 97 mg/dL (74-106); Potassium 4.1 mmol/L (3.5-5.1); Sodium 140 mmol/L (136-145); Total Protein 5.2 g/dL (6.4-8.2)
--- NOTE | 2023-12-30 07:32 | PM.DS1 ---
DS: Providers Provider Date of admission: 12/27/23 15:48 Primary care physician: Vashti Engle MD Admitting clinician: Samuel Georges Consults: 12/27/23 07:00 Consult to Orthopedics Routine Consulting Provider: Jesus Stinson Reason for consultation: left tibial plateau fx s/p fall Has provider been notified: Yes 12/27/23 13:00 Occupational Therapy Eval and Treat Routine Reason for consultation: left tibial plateau fx s/p fall Has provider been notified: No Physical Therapy Eval and Treat Routine Reason for consultation: left tibial plateau fx s/p fall Has provider been notified: No Discharging clinician: Ny Lomeli DS: Diagnosis Discharge Diagnosis (1) Closed fracture of left tibial plateau: (2) Dehydration: (3) JENIFER (acute kidney injury): (4) DVT (deep venous thrombosis): (5) Hypertension: DS: Summary Hospital Course Hospital Course: patient admitted on 12/27/23 She is a 73-year-old female patient with a past medical history of lumbar spondylosis, osteoarthritis of the left knee, DVT, PAD, GERD, and hypertension; who presented to the ED complaining of persistent left knee pain after a fall on Sunday. The patient reports a mechanical trip and fall, and denies any prodromal symptoms contributing to her fall including no dizziness, shortness of breath, chest pain or any other acute complaint. She did not strike her head and did not experience loss of consciousness. She had to have assistance by family members to stand up again and found that her pain in the left knee was so severe she was unable to ambulate. She essentially sat in a chair for 2 days but did ambulate back and forth to the bathroom with extreme difficulty. An outpatient x-ray was ordered by her pain management provider and she was sent directly to the ED from the radiology department as a comminuted fracture of the tibial plateau was noted. Workup in the ED showed mild leukocytosis (11.3 likely reactive), JENIFER (BUN 42, CR 1.79, GFR 28?baseline CKD 2), and other labs were unremarkable. Dr. Stinson, orthopedic surgeon, was contacted by the ED provider and he requested a CT of the knee be performed. This was done in the ED and confirmed a severely comminuted intra-articular fracture of the lateral tibial plateau with depression of the articular surface of 7 mm. Chronic, severe osteoarthritis was also noted. In addition, a large complex fluid collection extending from the posterior lateral aspect of the femoral-tibial joint region along the posterior aspect of the proximal tibial metadiaphysis was also noted and suspected to be a cyst. Dr. Stinson indicated this was a nonsurgical fracture but as the patient's pain was severe and she was nonambulatory, he requested that she be admitted to the hospital for pain control and he would see the patient in consult. She was able to transfer from the bed to the chair with the assistance of PT, a walker, and she noted extreme difficulty just with stand pivot. She has already been seen in consult by the orthopedic [employer] who recommends the patient be nonweightbearing to that extremity for 8 weeks and an immobilizer is to remain in place. Patient remained NWB on the left with knee immobilizer per recs, she worked closely with PT. She will benefit from Acute Skilled rehab and will discharged to the [facility] for this today. Vitals and labs have remained stable. She will need close orthopedic follow up with Dr. Stinson in [place] office on 01/06, patient will need to call to set up an appointment time. Status at Discharge Cognitive/behavioral status at discharge: Knee immobilizer - Nonweightbearing LLE - SNF as patient lives alone and will need to be non weightbearing for at least 8 weeks. Functional status at discharge: uses cane/walker Overall status at discharge: patient is progressing back to baseline Time Spent with Patient Time attestation: Total time spent providing and/or coordinating discharge services: Time spent: greater than 30 minutes Exam Narrative Exam Narrative: General: Patient is alert, and oriented to person, place and time with normal affect, proper hygiene Skin: no visible rashes, or ulcers Head: atraumatic, acephalic Eyes: PERRLA, no nystagmus present, conjunctiva clear, no scleral icterus Ears: normal gross auditory acuity Heart: Normal rate and rhythm, no murmurs/rubs/gallops Lungs: no audible wheezes, crackles and normal breath sounds all lung wise Neuro: CN II-X grossly intact MS: left knee immobilizer in place Constitutional Vital Signs, click to edit/add: Last Vital Signs Temp 97.6 F 12/30/23 04:34 Pulse 110 H 12/30/23 04:34 Resp 18 12/30/23 04:34 BP 165/73 H 12/30/23 04:34 Pulse Ox 94 L 12/30/23 04:34 O2 Del Method Room Air 12/30/23 04:34 DS: Data Data Completed and Pending Labs on day of discharge: Labs from last 24 hours 12/30/23 12/29/23 04:02 07:53 WBC 6.6 5.5 RBC 3.86 L 3.79 L Hgb 11.6 L 11.7 L Hct 36.4 35.7 L MCV 94.3 94.2 MCH 30.1 30.9 MCHC 31.9 32.8 RDW 16.3 H 16.1 H Plt Count 188 175 MPV 10.8 10.1 Neut % (Auto) 70.2 71.1 Lymph % (Auto) 19.7 L 19.3 L Anderson % (Auto) 7.0 6.1 Eos % (Auto) 1.2 1.3 Baso % (Auto) 0.5 0.4 Neut # (Auto) 4.6 3.9 Lymph # (Auto) 1.3 1.1 L Anderson # (Auto) 0.5 0.3 Eos # (Auto) 0.1 0.1 Baso # (Auto) 0.0 0.0 Abs Immat Gran (auto) 0.09 H 0.10 H Imm/Tot Granulo (auto) 1.4 H 1.8 H Sodium 140 142 Potassium 4.1 4.3 Chloride 108 H 108 H Carbon Dioxide 25.4 26.9 Anion Gap 10.7 11.4 BUN 21.0 H 21.0 H Creatinine 0.86 0.93 Est GFR ( Amer) >60 >60 Est GFR (Non-Af Amer) >60 59 L BUN/Creatinine Ratio 24.4 22.6 Glucose 97 96 Calcium 8.8 8.5 Total Bilirubin 0.5 0.5 AST 13 L 19 ALT 22 24 Alkaline Phosphatase 110 101 Total Protein 5.2 L 5.2 L Albumin 2.3 L 2.2 L Globulin 2.9 3.0 Albumin/Globulin Ratio 0.8 0.7 Discharge Plan Discharge Disposition: Xfer SNF Condition: Good Discharge Medications: New tramadol 50 mg Tablet 50 mg PO Q6H PRN (Reason: Pain Scale 7-10) 2 Days Qty: 8 0RF Continued atorvastatin 40 mg tablet 40 mg PO DAILY metoprolol succinate 100 mg tablet extended release 24 hr 100 mg PO DAILY verapamil 180 mg tablet extended release 180 mg PO DAILY diclofenac sodium 75 mg tablet,delayed release (DR/EC) 75 mg PO Q12H PRN (Reason: pain) Eliquis 5 mg tablet 5 mg PO BID Print Language: Barbadian Activity Restrictions/Additional Instructions: NWB of the LLE for 8 weeks, wear knee immobilizer Forms: Portal Instructions Follow Up Appointments: Patient to call [facility] for follow up appointment for 01/07/[address] Stinson in the [place] office. Discharge location: [facility]
[2023-12-30] MEDS: APIXABAN 5 MG TABLET PO (09:23)
[2023-12-30] MEDS: ACETAMINOPHEN 325 MG TABLET 650 MG PO (09:23)
[2023-12-30] MEDS: METOPROLOL SUCCINATE 100 MG TAB.ER.24H PO (09:23)
[2023-12-30] MEDS: VERAPAMIL HCL 180 MG ER TABLET PO (09:23)
[2023-12-30 09:27] VITALS: BP 163/125; PULSE 110; TEMP 37.1; O2SAT 95
[2023-12-30 10:55] VITALS: BP 138/91
[2023-12-30 11:56] VITALS: PULSE 84
== END 2023-12-30 12:06 | DRG 563 ==
LOC: ER 18:34 → MS 19:55
PROVIDERS: Physician Assistant; Registered Nurse; Admitting Provider Family Medicine; Emergency Provider Emergency Medicine; PCP Family Medicine; Visit Provider Family Medicine
DX: S82.192A Other fracture of upper end of left tibia, initial encounter for closed fracture (principal); N17.9 Acute kidney failure, unspecified; E86.0 Dehydration; I10 Essential (primary) hypertension; M17.12 Unilateral primary osteoarthritis, left knee; E78.5 Hyperlipidemia, unspecified; K21.9 Gastro-esophageal reflux disease without esophagitis; I73.9 Peripheral vascular disease, unspecified; Z86.718 Personal history of other venous thrombosis and embolism; M47.816 Spondylosis without myelopathy or radiculopathy, lumbar region; Z96.649 Presence of unspecified artificial hip joint; Z96.659 Presence of unspecified artificial knee joint; W19.XXXA Unspecified fall, initial encounter; Z79.01 Long term (current) use of anticoagulants; Z79.899 Other long term (current) drug therapy; W01.0XXA Fall on same level from slipping, tripping and stumbling without subsequent striking against object, initial encounter
CPT/HCPCS: 36415; 73564; 73700; 76882; 80048; 80053; 85025; 85027; 85610; 96361; 96374; 96375; 97110; 97161; 97165; 97530; 97535; 99285; G0378; G0463; J2405; J3010

== ENCOUNTER 2024-01-07 07:57 | Outpatient (OUT) | payer MEDICARE, SELFPAY ==
--- NOTE | 2024-01-07 | XR_ITS ---
The [address] [address] Patient Name: LINDA BARBOSA MRN: [id number] date: 1950 Sex: F Assigned Patient Location: Current Patient Location: Accession/Order Number: [id number] Exam Date: 01/07/2024 10:20 Report Date: 01/07/2024 10:49 At the request of: TIM MAYORGA Procedure: XR knee LT 2V PROCEDURE: XR knee LT 2V COMPARISON: 12/26/2023 HISTORY: LEFT KNEE PAIN FINDINGS: BONES:Stable acute complex intra-articular fracture involving the lateral tibial plateau with distraction and angulation of multiple fracture fragments. Degenerative changes with joint space narrowing most significant in the anterior compartment SOFT TISSUES:Negative. No visible soft tissue swelling. EFFUSION:Small suprapatellar joint effusion OTHER: Negative. XR/XR knee LT 2V IMPRESSION: Stable complex lateral tibial plateau fracture Electronically authenticated by: NIKHIL ANTHONY Date: 01/07/2024 10:49
== END 2024-01-07 07:58 | disposition home or self-care (01) ==
LOC: EC 07:58
PROVIDERS: PCP Family Medicine; Visit Provider Orthopaedic Surgery
DX: M25.562 Pain in left knee (principal)
CPT/HCPCS: 73560

== ENCOUNTER 2024-01-07 09:30 | Outpatient (OUT) | payer MEDICARE, SELFPAY ==
--- OUTSIDE RECORDS SUMMARY | 2024-01-07 15:51 | XMS_ITS | CCD ---
Author Organization [facility] CliniSyms Care Team Providers Care Primer Charging Tool Setter Name Role Phone Wayne Mccallum Unavailable Jose Najera II Unavailable MD Vashti Clark Primary Care Provider [phone] MD Jose Najera II Attending Provider DR VASHTI CLARK Attending Unavailable AMBER, DR VASHTI Porter Primary Care Unavailable AMBER, DR VASHTI Porter Admitting Unavailable ZIEBER, DR TIM Veronica Consulting Unavailable AMBER, DR [...] MUJICA, Marc Tavares Attending Unavailable She MUJICA, Christopherus Anusha Attending Unavailable She MUJICA, Kamilahrius Anusha Attending Unavailable She MUJICA, Marc Tavares Attending Unavailable Allergies Allergy Classification Reported Allergen(s) Allergy Type Date of Onset Reaction(s) Facility (6 sources) patient allergy list reviewed by nurse or physicia Propensity to adverse reactions 5 Comment:Done [facility] Other (6 sources) Allergies Reconciled Propensity to adverse reactions Unknown [facility] Other Medications Current Medications Medication Drug Class(es) [...] tablet Active 5 MG PO Twice daily August 30, 2023 12:14pm take 1 tablet [...] Active 1 TAB PO Twice daily 60 30 October 31, 2021 12:00am Start: 10-31-2021 take [...] Start: 10-06-2021 take 1 capsule by mo [facility] every twelve hours Cefadroxil 500 MG 1 [...] DISCHARGE DOS:10/24/2021 Sep, Active polyethylene glycol 3350 79620 mg powder for oral solution (8 sources) Osmotic Laxative Start: 10-06-2021 End: 10-31-2021 [...] ity US ankle/arm indiceson US ankle/arm indices [facility] [place] [address] Ultrasound Report Signed Patient: Kami Fink MR#: [id number] [birth year] : 1950 Acct:[id number] Age/Sex: 73 / F ADM Date: 09/13/23 Loc: [facility] Room: Type: [facility] Attending Dr: Willy Yancey MD Ordering Provider: [...] Willy Yancey MD09/13/2023 2:37 PM Dictation Location: [place] [address] Tech: Marquita Carlos Transcribed By: DALILA 09/13/23 1437 Dictated By: Willy Yancey MD 09/13/23 1435 Signed By: 09/13/23 1437 Normal [facility] XR knee RT 2Von 11-02-2022 XR knee RT 2V [facility] Main [place] [address] [place] [address] XRay Report Signed Patient: Kami Fink MR#: [id number] [birth year] : 1950 Acct:[id number] Age/Sex: 72 / F ADM Date: 11/02/22 Loc: [facility] Room: Type: [facility] Attending Dr: Jose Najera II, [...] Mondragon Jr., D.OEdgard11/02/2022 3:18 PM Dictation Location: [place] [address] Transcribed By: DALILA 11/02/22 1518 Dictated By: Audie Mondragon Jr, DO 11/02/22 1517 Signed By: 11/02/22 1518 Normal [facility] XR knee RT 2V [facility] Other XR knee RT 2V [facility] [place] [facility] Other XR knee RT 2V 1111 [facility] Other XR knee [place] 2[place] [address] [facility] Other XR knee RT 2V XRay Report [facility] [employer] Other XR knee RT 2V Signed [facility] Other XR knee RT 2V Patient: Krystle Fink MR#: [id number] [facility] Other XR knee RT 2V 31 [facility] Other XR knee RT 2V : 1950 Acct:[id number] [facility] Other XR knee RT 2V Age/Sex: 72 / F ADM Date: 11/02/22 [facility] Other XR knee RT 2V Loc: [place] Room: Type : [facility] Other XR knee RT 2V Attending Dr: Jose Najera II, MD [facility] Other XR knee RT 2V Copies to: Jose Najera MD [facility] Other XR knee RT 2V Ordering Provider: Jose Najera MD [facility] Other XR knee RT 2V Date of Service: 11/02/22 [facility] Other XR knee RT 2V XR/XR knee RT 2V: History of total right knee replacement [facility] Other XR knee RT 2V RIGHT KNEE - 2 views N [facility] Other XR knee RT 2V CLINICAL HISTORY: Follow-up right TKA [facility] Other XR knee RT 2V COMPARISON: Right knee 01/18/2022 [facility] Other XR knee RT 2V FINDINGS: [facility] Other XR knee RT 2V No evidence of hardware complication or acute bony process. [facility] Other XR knee RT 2V XR/XR knee RT 2V [facility] Other XR knee RT 2V IMPRESSION: [employer] Other XR knee RT 2V NO EVIDENCE OF HARDWARE COMPLICATION. [facility] Other XR knee RT 2V Impression dictated by: Audie Mondragon Jr., D.OEdgard11/02/2022 3:18 PM [facility] Other XR knee RT 2V Dictation Location: [place] [address] [facility] Other XR knee RT 2V Transcribed By: PWS 11/02/22 [facility] Other XR knee RT 2V Dictated By: Audie Mondragon Jr, DO 11/02/22 [facility] Other XR knee RT 2V Signed By: [facility] Other XR knee RT 2V 11/02/22 [facility] [employer] Other Vital Signs Date Time Vital Sign Value Performing Clinician Facility 12-13-2023 14:51-0400 Body height 161.[address] [facility] 12-13-2023 14:51-0400 Body mass index (BMI) [Ratio] 35.4 kg/m2 [facility] 12-13-2023 14:51-0400 Body weight 92.[address] [facility] 10-15-2023 11:18-0400 Body height 161.29 cm MD Vashti Clark Work Phone: [facility] 10-15-2023 11:18-0400 Body mass index (BMI) [Ratio] 36.6 kg/m2 MD Vashti Clark Work Phone: [facility] 10-15-2023 11:18-0400 Body weight 95.36 kg MD Vashti Clark Work Phone: [facility] 10-15-2023 11:18-0400 Diastolic blood pressure 81 mm[Hg] MD Vashti Clark Work Phone: [facility] 10-15-2023 11:18-0400 Heart rate 77 /min MD Vashti Clark Work Phone: [facility] 10-15-2023 11:18-0400 Systolic blood pressure 142 mm[Hg] MD Vashti Clark Work Phone: [facility] 09-13-2023 11:54-0500 Body height 161.29 cm MD Vashti Clark Work Phone: [facility] 09-13-2023 11:54-0500 Body mass index (BMI) [Ratio] 37.8 kg/m2 MD Vashti Clark Work Phone: [facility] 09-13-2023 11:54-0500 Body temperature 97.6 [degF] MD Vashti Clark Work Phone: [facility] 09-13-2023 11:54-0500 Body weight 98.42 kg MD Vashti Clark Work Phone: [facility] 09-13-2023 11:54-0500 Diastolic blood pressure 82 mm[Hg] MD Vashti Clark Work Phone: [facility] 09-13-2023 11:54-0500 Heart rate 89 /min MD Vashti Clark Work Phone: [facility] 09-13-2023 11:54-0500 Respiratory rate 16 /min MD Vashti Clark Work Phone: [facility] 09-13-2023 11:54-0500 SaO2% (BldA) [Mass fraction] 99 % MD Vashti Clark Work Phone: [facility] 09-13-2023 11:54-0500 Systolic blood pressure 124 mm[Hg] MD Vashti Clark Work Phone: [facility] 08-30-2023 10:41-0500 Body height 161.[address] [facility] 08-30-2023 10:41-0500 Body mass index (BMI) [Ratio] 37.8 kg/m2 [facility] 08-30-2023 10:41-0500 Body weight 98.[address] [facility] 08-30-2023 10:41-0500 Diastolic blood pressure 81 mm[Hg] [facility] 08-30-2023 10:41-0500 Heart rate 87 /min [facility] 08-30-2023 10:41-0500 Systolic blood pressure 155 mm[Hg] [facility] 08-23-2023 09:20-0500 Body height 161.29 cm Ny Jin Other [facility] Other 08-23-2023 09:20-0500 Body mass index (BMI) [Ratio] 37.48 kg/m2 Ny Jin Other [facility] Other 08-23-2023 09:20-0500 Body weight 97.52 kg Ny Jin Other [facility] Other 08-16-2023 10:00-0500 Body height 161.29 cm Vashti Clark Other [facility] 08-16-2023 10:00-0500 Body mass index (BMI) [Ratio] 37.83 kg/m2 Vashti Clark Other [facility] Other 08-16-2023 10:00-0500 Body weight 98.43 kg Vashti Clark Other [facility] Other 08-16-2023 10:00-05[address] Body weight 98[address] [facility] 08-16-2023 10:00-0500 Diastolic blood pressure 81 mm[Hg] Vashti Clark Other [facility] 08-16-2023 10:00-0500 Systolic blood pressure 147 mm[Hg] Vashti Clark Other [facility] 05-29-2023 11:30-0500 Body height 161.29 cm Vashti Clark Other [facility] Other 05-29-2023 11:30-0500 Body mass index (BMI) [Ratio] 37.41 kg/m2 Vashti Clark Other [facility] Other 05-29-2023 11:30-0500 Body weight 97.34 kg Vashti Clark Other [facility] Other 05-29-2023 11:30-0500 Diastolic blood pressure 85 mm[Hg] Vashti Clark Other [facility] Other 05-29-2023 11:30-0500 Respiratory rate 16 /min Vashti Clark Other [facility] Other 05-29-2023 11:30-0500 Systolic blood pressure 174 mm[Hg] Vashti Clark Other [facility] Other 03-15-2023 08:45-0400 Body height 161.29 cm Ojse Reinaldo II Other [facility] Other 03-15-2023 08:45-0400 Body mass index (BMI) [Ratio] 38.01 kg/m2 Jose Beaver II Other [facility] Other 03-15-2023 08:45-0400 Body weight 98.88 kg Jose Beaver II Other [facility] Other 01-18-2023 11:15-0400 Body height 161.29 cm Vashti Clark Other [facility] Other 01-18-2023 11:15-0400 Body mass index (BMI) [Ratio] 38.01 kg/m2 Vashti Clark Other [facility] Other 01-18-2023 11:15-0400 Body weight 98.88 kg Vashti Clark Other [facility] Other 01-18-2023 11:15-0400 Diastolic blood pressure 81 mm[Hg] Vashti Clark Other [facility] Other 01-18-2023 11:15-0400 Systolic blood pressure 167 mm[Hg] Vashti Clark Other [facility] Other 12-12-2022 13:45-0400 Body height 161.29 cm Vashti Clark Other [facility] Other 12-12-2022 13:45-0400 Body mass index (BMI) [Ratio] 37.48 kg/m2 Vashti Clark Other [facility] Other 12-12-2022 13:45-0400 Body weight 97.52 kg Vashti Clark Other [facility] Other 12-12-2022 13:45-0400 Diastolic blood pressure 59 mm[Hg] Vashti Clark Other [facility] Other 12-12-2022 13:45-0400 Systolic blood pressure 147 mm[Hg] Vashti Clark Other [facility] Other 11-02-2022 15:45-0400 Body height 167.64 cm Jose Reinaldo II Other [facility] Other 12-07-2021 11:45-0400 Body height 167.64 cm Jose Beaver II Other [facility] Other 12-07-2021 11:45-0400 Body mass index (BMI) [Ratio] 34.7 kg/m2 Jose Reinaldo II Other [facility] Other 12-07-2021 11:45-0400 Body weight 97.52 kg Jose Reinaldo II Other [facility] Other 11-16-2021 11:45-0400 Body height 167.64 cm Jose Reinaldo II Other [facility] Other 11-16-2021 11:45-0400 Body mass index (BMI) [Ratio] 34.7 kg/m2 Jose Beaver II Other [facility] Other 11-16-2021 11:45-0400 Body weight 97.52 kg Jose Reinaldo II Other [facility] Other 10-06-2021 16:00-0400 Body height 167.64 cm Jose Beaver II Other [facility] Other 10-06-2021 16:00-0400 Body mass index (BMI) [Ratio] 34.7 kg/m2 Jose Reinaldo II Other [facility] Other 10-06-2021 16:00-0400 Body weight 97.52 kg Jose Beaver II Other [facility] Other 09-13-2021 16:15-0500 Body height 167.64 cm Wayne Mccallum Other [facility] Other 09-13-2021 16:15-0500 Body mass index (BMI) [Ratio] 34.7 kg/m2 Wayne Mccallum Other [facility] Other 09-13-2021 16:15-0500 Body weight 97.52 kg Wayne Mccallum Other [facility] Other Encounters Encounter Date Encounter Type Care Provider Facility Start: 12-13-2023 End: 12-13-2023 ambulatory [facility] Work Phone: Start: 12-13-2023 End: 12-13-2023 Patient encounter procedure [facility] Physician [facility] Work Phone: Start: 11-19-2023 End: 11-20-2023 ambulatory Marc Nowak MD Facility:[facility] Start: 10-29-2023 End: 10-30-2023 ambulatory Marc Nowak MD Facility:[facility] Start: 10-15-2023 End: 10-15-2023 ambulatory MD Vashti Clark Work Phone: [facility] Work Phone: Start: 10-15-2023 End: 10-15-2023 Patient encounter procedure MD Vashti Clark Work Phone: [facility] Physician [facility] Medical [facility] Work Phone: Start: 10-04-2023 End: 10-04-2023 ambulatory MD Vashti Clark Work Phone: [facility] Work Phone: Start: 10-04-2023 End: 10-04-2023 Patient encounter procedure MD Vashti Clark Work Phone: [facility] Physician [facility] Work Phone: Start: 10-01-2023 End: 10-02-2023 ambulatory Marc Nowak MD Facility:[facility] Start: 09-24-2023 End: 09-25-2023 ambulatory Marc Nowak MD Facility:[facility] Start: 09-13-2023 End: 09-13-2023 ambulatory Willy Yancey Facility:[facility] Start: 09-13-2023 End: 09-13-2023 Patient encounter procedure MD Vashti Clark Work Phone: [facility]Ultrasound [facility] Start: 09-13-2023 End: 09-13-2023 Patient encounter procedure MD Vashti Clark Work Phone: [facility] Vascular Surgery Work Phone: Start: 08-30-2023 End: 08-30-2023 ambulatory [facility] Work Phone: Start: 08-30-2023 End: 08-30-2023 Patient encounter procedure [facility] Physician [facility] Work Phone: Start: 08-27-2023 End: 08-27-2023 ambulatory Ny Jin Other [facility] Other Start: 08-27-2023 Telephone encounter Ny Jin [facility] Start: 08-23-2023 End: 08-23-2023 ambulatory Ny Jin Other [facility] Other Start: 08-23-2023 Office outpatient ne w 45 minutes Ny Jin [facility] Start: 08-16-2023 End: 08-16-2023 ambulatory Vashti Clark Other [facility] Other Start: 08-16-2023 Office outpatient vi sit 15 minutes Vashti Clark [facility] Start: 08-16-2023 Telephone encounter Vashti Clark [facility] Start: 08-16-2023 End: 08-16-2023 Patient encounter procedure [facility]- Start: 08-13-2023 End: 08-13-2023 ambulatory Jose Beaver II Other [facility] Other Start: 08-13-2023 Telephone encounter Jose Beaver II [facility] Start: 07-03-2023 End: 07-03-2023 ambulatory Vashti Clark Other [facility] Other Start: 07-03-2023 Telephone encounter Vashti Amber [facility] Start: 06-27-2023 Patient encounter procedure [facility]- Start: 06-18-2023 End: 06-18-2023 ambulatory ANABELLA D DOLCE Not Available Start: 06-11-2023 End: 06-11-2023 ambulatory Vashti Clark Other [facility] Other Start: 06-11-2023 Telephone encounter Vashti Amber [facility] Start: 06-01-2023 End: 06-01-2023 ambulatory ANABELLA D DOLCE Not Available Start: 05-29-2023 End: 05-29-2023 ambulatory Vashti Amber Other [facility] Other Start: 05-29-2023 Office outpatient vi sit 15 minutes Vashti Clark [facility] Start: 05-29-2023 Telephone encounter Vashti Amber [facility] Start: 05-14-2023 End: 05-14-2023 ambulatory Jose Reinaldo II Other [facility] Other Start: 05-14-2023 Telephone encounter Jose Reinaldo II [facility] Start: 04-02-2023 End: 04-02-2023 ambulatory Vashti Amber Other [facility] Other Start: 04-02-2023 Telephone encounter Vashti Amber [facility] Start: 03-15-2023 End: 03-15-2023 ambulatory Jose Beaver II Other [facility] Other Start: 03-15-2023 Office outpatient vi sit 25 minutes Jose Beaver II [facility] Start: 02-26-2023 End: 02-26-2023 ambulatory Vashti Clark Other [facility] Other Start: 02-26-2023 Telephone encounter Vashti Clark [facility] Start: 02-08-2023 End: 02-08-2023 ambulatory Jose De Andaisle II Other [facility] Other Start: 02-08-2023 Office outpatient vi sit 25 minutes Jose Beaver II [facility] Start: 01-19-2023 End: 01-19-2023 ambulatory Vashti Clark Other [facility] Other Start: 01-19-2023 Telephone encounter Vashti Clark [facility] Start: 01-18-2023 End: 01-18-2023 ambulatory Vashti Clark Other [facility] Other Start: 01-18-2023 Office outpatient vi sit 15 minutes Vashti Clark [facility] Start: 01-17-2023 End: 01-17-2023 ambulatory Jose Reinaldo II Other [facility] Other Start: 01-17-2023 Telephone encounter Jose Peñale II [facility] Start: 12-13-2022 End: 12-13-2022 ambulatory Vashti Clark Other [facility] Other Start: 12-13-2022 Telephone encounter Jose De Andaisle II [facility] Start: 12-12-2022 End: 12-13-[address] VASHTI CLARK Facility: Start: 12-12-2022 Office outpatient vi sit 15 minutes Vashti Clark [facility] Start: 11-02-2022 End: 11-02-2022 ambulatory Jose Tequila Peñale II [facility] Other Start: 11-02-2022 Office outpatient vi sit 25 minutes Jose Beaver II [facility] Start: 10-10-2022 End: 10-10-2022 ambulatory Jose Reinaldo II Other [facility] Other Start: 10-10-2022 Telephone encounter Jose Beaver II [facility] Start: 06-23-2022 End: 06-23-2022 ambulatory MD Vashti Clark Work Phone: [facility] Work Phone: Start: 06-23-2022 End: 06-23-2022 Patient encounter procedure MD Vashti Clark Work Phone: [facility] Start: 04-13-2022 End: 04-13-2022 ambulatory Jose Reinaldo II Other [facility] Other Start: 04-13-2022 Telephone encounter Jose Reinaldo II [facility] Start: 03-06-2022 End: 03-06-2022 ambulatory Wayne Mccallum Other [facility] Other Start: 03-06-2022 Office outpatient vi sit 15 minutes Wayne Mccallum [facility] Start: 01-18-2022 (Post-Op) Post-Op Jose Reinaldo II [facility] Start: 01-18-2022 End: 01-18-2022 ambulatory Jose Reinaldo II Other [facility] Other Start: 12-07-2021 (Post-Op) Post-Op Jose Beaver II [facility] Start: 12-07-2021 End: 12-07-2021 ambulatory Jose Reinaldo II Other [facility] Other Start: 11-21-2021 Pre-procedure evaluation check Jose Reinaldo II Other [facility] Other Start: 11-16-2021 End: 11-16-2021 ambulatory Jose Beaver II Other [facility] Other Start: 11-16-2021 Office outpatient vi sit 15 minutes Jose Beaver II [facility] Start: 10-14-2021 (Prolonged) Prolonge d Services Jose Beaver II [facility] Start: 10-14-2021 End: 10-14-2021 ambulatory Jose Reinaldo II Other [facility] Other Start: 10-06-2021 End: 10-06-2021 ambulatory Jose Beaver II Other [facility] Other Start: 10-06-2021 Office outpatient vi sit 25 minutes Jose De Andaisle II [facility] Start: 09-13-2021 End: 09-13-2021 ambulatory Jose Beaver II Other [facility] Other Start: 09-13-2021 Office outpatient vi sit 25 minutes Wayne Mccallum [facility] Start: 09-13-2021 Telephone encounter Jose De Andaisle II [facility] Start: 08-09-2021 End: 08-09-2021 ambulatory Wayne Mccallum Other [facility] Other Start: 08-09-2021 Telephone encounter Wayne Mccallum [facility] Start: 07-28-2021 End: 07-28-2021 ambulatory Wayne Mccallum Other [facility] Other Start: 07-28-2021 Office outpatient vi sit 15 minutes Wayne Mccallum [facility] Start: 06-27-2021 Adult health examination Jose De Andaisle II Other [facility] Other Start: 05-12-2021 Office outpatient vi sit 15 minutes Wayne Mccallum [facility] Procedures Date Procedure Procedure Detail Performing Clinician [...] Activity Detail Author Start: 10-15-2023 Patient referral [facility] Work Phone: Patient referral [facility] Work Phone: Immunizations Immunization Date Immunization Notes Care Provider Fa [facility] 05-29-2023 influenza virus vaccine, unspecified formulation [facility] 05-29-2023 influenza, high dose seasonal, preservative-free Vashti Clark Other [facility] Other 04-11-2021 COVID-19 mRNA Comirnaty (Pfizer) MD Vashti Clark Work Phone: [facility] 09-07-2020 COVID-19 mRNA Comirnaty (Pfizer) MD Vashti Clark Work Phone: [facility] 08-17-2020 COVID-19 mRNA Comirnatwinter (Pfizer) MD Vashti Clark Work Phone: [facility] 05-24-2020 Kenalog -40 mg Wayne Mccallum Other [facility] Other 03-31-2020 influenza virus vaccine, split virus (incl. purified surface antigen) Jose Najera II Other [facility] Other 03-31-2020 influenza virus vaccine, unspecified formulation [facility] 08-11-2019 Kenalog -40 mg Wayne Felter Other [facility] Other 11-04-2018 Kenalog -40 mg Wayne Felter Other [facility] Other 03-19-2018 Supartz Wayne Felter Other [facility] Other 03-12-2018 Theraputic Injection Wayne Payneer Other [facility] Other 03-05-2018 Supartz Wayne Felter Other [facility] Other 02-26-2018 Supartz Wayne Felter Other [facility] Other 02-19-2018 Supartz Wayne Felter Other [facility] Other 11-27-2017 Kenalog -40 mg Wayne Felter Other [facility] Other 05-31-2016 influenza virus vaccine, split virus (incl. purified surface antigen) Jose Peñale II Other [facility] Other 05-31-2016 influenza virus vaccine, unspecified formulation [facility] 05-31-2016 pneumococcal polysaccharide vaccine, 23 valent Jose Beaver II Other [facility] Payers Date Payer Category Payer Medicare 2023 Unknown 2022 Self-pay [id number] 1961 Medicare [id number] 2.1 [id number] 1961 Unknown [id number] 2.1 [id number] 1950 Unknown [id number] 2.16.84 [id number] 1950 Unknown [id number] 2.16.840 .[id number] 1950 Unknown [id number] 2.16.840 .[id number] 1950 Unknown [id number] 2.16. [id number] 1950 Unknown [id number] 2.16. [id number] 1950 Unknown [id number] 2.16. [id number] 1950 Unknown [id number] 2.16. [id number] Unknown Karen BC/BS [id number] Unknown [id number] 2.16.8 [id number] Unknown [id number] 2.16.8 [id number] Social History Date Type Detail Facility Unknown if ever smoked [facility] Other Sex Assigned At Sex Assigned At Bir th [facility] Other Start: 10-26-2021 End: 10-26-2021 Tobacco smoking status NHIS Never smoked tobacco (finding) [facility] Start: 1950 Sex Assigned At Female F [facility] Medical Equipment Procedure Code Equipment Code Equipment Origin al Text Equipment Identifier Dates Arthroplasty, knee, total, minimally invasive Orthopaedic cement, non-medicated ([id number] FDA Start: 10-24-2021 Arthroplasty, knee, total, minimally invasive Uncoated knee femur prosthesis, metallic ()[id number] FDA Start: 10-24-2021 Arthroplasty, knee, total, minimally invasive Tibial insert ()[id number] FDA Start: 10-24-2021 Arthroplasty, knee, total, minimally invasive Polyethylene patella prosthesis ()[id number] FDA Start: 10-24-2021 Arthroplasty, knee, total, minimally invasive Knee stem ()[id number] FDA Start: 10-24-2021 Arthroplasty, knee, total, minimally invasive Uncoated knee tibia prosthesis, metallic ()[id number] FDA Start: 10-24-2021 Clinical Notes 05-12-2021 to [...] Aug, Lower extremity edema (ICD-10 - R60.0) [facility] Other 02-01-2024 Evaluation note* Encounter Date Diagnosis Assessment Notes Treatment Notes Treatment Clinical Notes Aug, Leg edema, right (ICD-10 - R60.0) Check US today, discussed other possibilities but r/o DVT first. [facility] Other 12-19-2023 Evaluation note* Encounter Date Diagnosis Assessment Notes Treatment Notes Treatment Clinical Notes Jun, Lumbar pain (ICD-10 - M54.50) [facility] Other 11-27-2023 Evaluation note* Encounter Date Diagnosis Assessment Notes Treatment Notes Treatment Clinical Notes May, DDD (degenerative disc disease), lumbar (ICD-10 - M51.36) [facility] Other 11-14-2023 Evaluation note* Encounter Date Diagnosis Assessment Notes Treatment Notes Treatment Clinical Notes May, Peripheral polyneuropathy (ICD-10 - G62.9) Requests labs to r/o metabolic causes. May, Lumbar pain (ICD-10 - M54.50) Chronic lumbar pain. Agrees to start w xray. May, Paronychia, toe, lef t (ICD-10 - L03.032) Pt requests antibiotic at end of visit. Keep foot clean and dry. [facility] Other 08-31-2023 Evaluation note* Encounter Date Diagnosis [...] wedding planned the end of August 2023. [facility] Other 07-27-2023 Evaluation note* Encounter Date Diagnosis [...] it is not something that I prescribed. [facility] Other 07-06-2023 Evaluation note* Encounter Date Diagnosis Assessment Notes Treatment Notes Treatment Clinical Notes Jan, Easy bruisability (ICD-10 - R23.3) Pt will get labs today. Discussed possible link w the frequent NSAIDs Jan, Essential (primary) hypertension (ICD-10 - I10) Due for labs. Possible elevated glucose - nonfasting, had steroid pills and injections due to foot issues. She is seeing podiatry for plantar fasciitis. [facility] Other 07-06-2023 Evaluation note* Encounter Date Diagnosis [...] symptoms. Any developing patterns. Stay well hydrated. [facility] Other 05-31-2023 NotePROCEDURE: XR FOOT LT MIN [...] Electronically authenticated by: TIM TORREZ Date: 2022-12-13 08:39[facility] Evaluation note* Encounter Date Diagnosis Assessment Notes Treatment Notes Treatment Clinical Notes November, Left foot pain (ICD-10 - M79.672) Discussed primary concern of stress fracture. Pt agrees to xray. Reviewed ortho notes. She is to followup there prn. [facility] Other 2023 Evaluation note* Encounter Date Diagnosis Assessment Notes Treatment Notes Treatment Clinical Notes Oct, History of total right knee replacement (ICD-10 - Z96.651) Oct, Primary osteoarthritis of both knees (ICD-10 - M17.0) Oct, Other [facility] at [facility] on 10/24/2021 Happy with surgical result [...] as needed basis for the left knee. [facility] Other 09-29-2022 Evaluation note* Encounter Date Diagnosis Assessment Notes Treatment Notes Treatment Clinical Notes Mar, Primary osteoarthritis of both knees (ICD-10 - M17.0) [facility] Other 08-22-2022 Evaluation note* Encounter Date Diagnosis [...] note writ ten by Richar Kruger LPN, [place]. Edited and approved by Dr. Wayne Mccallum MD. [facility] Other 07-06-2022 Evaluation note* Encounter Date Diagnosis Assessment Notes Treatment Notes Treatment Clinical Notes Jan, Primary osteoarthritis of both knees (ICD-10 - M17.0) Jan, Aftercare following joint replacement surgery (ICD-10 - Z47.1) Jan, History of total right knee replacement (ICD-10 - Z96.651) Jan, Other [facility] at [facility] on 10/24/2021 Doing well Discussed post-op dental prophylaxis. Shared decision made to continue prophylactic antibiotics indefinitely. Follow-up at 1 year post-op for repeat examination and 2 view x-rays of the right knee. Patient instructed to call with any questions or concerns. [facility] Other 05-25-2022 Evaluation note* Encounter Date Diagnosis Assessment Notes Treatment Notes Treatment Clinical Notes November, Primary osteoarthritis of both knees (ICD-10 - M17.0) November, Aftercare following joint replacement surgery (ICD-10 - Z47.1) November, History of total right knee replacement (ICD-10 - Z96.651) November, Other [facility] at [facility] on 10/24/2021 Doing well Patient may continue activities as tolerated. Continue PT as recommended. Continue taking oppx-pjx-vibaglb anti-inflammatori es as needed for assistance with swelling and pain associated with the operative extremity. Follow-up in 6 weeks for repeat examination and long standing x-rays. [facility] Other 05-04-2022 Evaluation note* Encounter Date Diagnosis [...] for 3 views of the right knee. [facility] Other 04-01-2022 Evaluation note* Encounter Date Diagnosis [...] patient could proceed with surgery safely. The night warehouse manager was vital for surgery timing and [...] plans. Prolonged services time spent: 37 minutes [facility] Other 04-01-2022 History general Narrative - Reported* Type Description Date Medical History hypertension Surgical History bilateral SANDRO Surgical History abdominal surgery Surgical History RT TKR 10/2021 Hospitalization History see above [facility] Other 04-01-2022 History general Narrative - Reported* Type Description Date Medical History hypertension Surgical History bilateral SANDRO Surgical History abdominal surgery Surgical History RT TKR 10/2021 Surgical History COLONOSCOPY Hospitalization History see above [facility] Other 04-01-2022 History general Narrative - Reported* Type Description Date Medical History hypertension Medical History Frozen shoulder Medical History Lumbar pain Surgical History bilateral SANDRO Surgical History abdominal surgery Surgical History RT TKR 10/2021 Surgical History COLONOSCOPY Hospitalization History see above [facility] Other 03-24-2022 Evaluation note* Encounter Date Diagnosis [...] Joints Meeting Checklist - Pharmacy: [facility] med to bed - Approach/Technique: ZULLY [...] elected to proceed with the above surgery. [facility] Other 03-01-2022 Evaluation note* Encounter Date Diagnosis [...] note writ ten by Richar Kruger LPN, [place]. Edited and approved by Dr. Wayne Mccallum MD. [facility] Other 03-01-2022 Evaluation note* Encounter Date Diagnosis Assessment Notes Treatment Notes Treatment Clinical Notes Sep, Primary osteoarthritis of both knees (ICD-10 - M17.0) [facility] Other 01-25-2022 Evaluation note* Encounter Date Diagnosis Assessment Notes Treatment Notes Treatment Clinical Notes Jul, Primary osteoarthritis of both knees (ICD-10 - M17.0) [facility] Other 01-13-2022 Evaluation note* Encounter Date Diagnosis [...] note writ ten by Richar Kruger LPN, [place]. Edited and approved by Dr. Wayne Mccallum MD. [facility] Other 10-28-2021 Evaluation note* Encounter Date Diagnosis [...] note writ ten by Nissa Murillo CMA, [place]. Edited and approved by Dr. Wayne Mccallum MD. [facility] Other Evaluation noteNo assessment information available [facility] Work Phone: Evaluation noteNo InformationNortJefferson Health [facility] Other Evaluation note* Diagnosis Onset Date Resolution Status Right femoral vein DVT acute [facility] Work Phone: Evaluation note* Diagnosis Onset Date Resolution Status Essential (primary) hypertension acute Knee arthropathy acute Right femoral vein DVT acute PAD (peripheral artery disease) acute Primary osteoarthritis of left knee acute [facility] Work Phone: Evaluation note* Diagnosis Onset Date Resolution Status Essential (primary) hypertension acute Knee arthropathy acute Right femoral vein DVT acute PAD (peripheral artery disease) acute Primary osteoarthritis of left knee acute PAD (peripheral artery disease) acute Venous ulcer of left leg acu te [facility] Work Phone: Evaluation note* Diagnosis Onset Date Resolution Status Primary osteoarthritis of left knee acute PAD (peripheral artery disease) acute Venous ulcer of left leg acu te Primary osteoarthritis of left knee acute [facility] Work Phone: History general Narrative - Reported* Type Description Date Medical History hypertension Surgical History bilateral SANDRO Surgical History abdominal surgery [facility] Other Hospital Discharge instructionsAmbulatory Orders* Referral to Wound Care Time Frame: 10/15/23, Location: None Selected [facility] Work Phone: Family History Relationship [...] Diagnosis 1 Lumbar pain (M54.50) Referral Organization [facility] Referring Provider First Name Ny Referring Provider Last Name Jin Referring Provider Specialty Nurse Pract itioner Referred Organization [facility] Pain Managemen t [facility] [place] Referred Provider Wayne Mccallum Referred Address [address] [place],[address] Referred Provider Specialty Pain Medicin e Referral Priority Routine General Notes Eryn Reynoso 02:02:11 PM >received today, patient previously seen by Dr Mccallum (last visit Feb 2022) and is still considered established. sending p2p at this time for scheduling. Reason evaluate and t reat for peripheral vascular disease Diagnosis 1 Peripheral vascular disease (I73.9) Referral Organization [facility] Referring Provider First Name Ny Referring Provider Last Name Annabel Referring Provider Specialty Nurse Pract itioner Referred Organization [facility] Vascular Surge ry Referred Provider Willy Yancey Referred Address [address],[place], [place],[address] Referred Provider Specialty Vascular Samantha piotr Referral Priority Routine General Notes Eryn Reynoso 02:08:33 PM >received today, p2p sent for scheduling Reason *Waiting for appt chronic lumbar - recent MRI Diagnosis 1 Lumbar pain (M54.50) Referral Organization [facility] Referring Provider First Name Vashti Referring Provider Last Name Amber Referring Provider Specialty Family Medi cine Referred Organization [facility] Spine Center Referred Provider Jose Clark Referred Address [address] ,[place], [place],[address] Referred Provider Specialty Neurological Surgery Referral Priority [...] InformationNo InformationH & P RIGHT TOTAL KNEE [id number] WK WOUND CHECKRecheck Right Knee6 WK RECHECKLT [...] and content) DATE CREATED AUTHOR 12/22/2022 [facility] DATE CREATED AUTHOR AUTHOR'S ORGANIZ ATION 06/20/2023 [facility] DATE CREATED AUTHOR AUTHOR'S ORGANIZ ATION 09/16/2023 [facility] DATE CREATED AUTHOR AUTHOR'S ORGANIZ ATION 11/25/2023 [facility] FOR RECORDS PERTAINING TO PATIENTS WHO [...] BE BASED ON THE PRIMARY CLINICAL RECORDS. [employer] provides no warranty or guarantee of the accuracy or completeness of information in this document.
== END 2024-01-07 09:31 | disposition home or self-care (01) ==
LOC: WC 15:32
PROVIDERS: PCP Family Medicine; Visit Provider Physician Assistant
DX: I87.312 Chronic venous hypertension (idiopathic) with ulcer of left lower extremity (principal); L97.822 Non-pressure chronic ulcer of other part of left lower leg with fat layer exposed; M25.562 Pain in left knee
CPT/HCPCS: 15271; 73560; Q4196

== ENCOUNTER 2024-01-10 07:54 | Outpatient (OUT) | payer MEDICARE, SELFPAY ==
--- OUTSIDE RECORDS SUMMARY | 2024-01-10 08:01 | XMS_ITS ---
Patient Summarization (C-CDA 2.1 CCD) Created on: January 10, 2024 AleksKami : 1950 Sex: Female Author Organization Sample organization Care Team Providers Care Hardware Installation Coordinator Name Role Phone Wayne Mccallum Unavailable Jose Najera II Unavailable [phone] MD Vashti Clark Primary Care Provider [phone] MD Jose Najera II Attending Provider DR VASHTI CLARK Attending Unavailable AMBER, DR VASHTI Porter Primary Care Unavailable AMBER, DR VASHTI Porter Admitting Unavailable ZIEBER, DR TIM Veronica Consulting Unavailable AMBER, DR VASHTI Porter Consulting Unavailable Vashti Clark Unavailable ANABELLA STEAWRT Attending Unavailable ANABELLA STEWART Attending Unavailable Ny Jin Unavailable Willy Yancey Admitting UnavailWilly Etienne Attending UnavailVashti Ricks Primary Care Unavailable Jose Najera II Admitting UnavailJose Avendano II Attending UnavailVashti Ricks Primary Care Unavailable MD Vashti Clark Primary Care Provider MD Willy Yancey Attending Provider She MUJICA, Marc Tavares Attending Unavailable She MUJICA, Andrius Anusha Attending Unavailable She MUJICA, Andrius Vernst Attending Unavailable She MUJICA, Marc Tavares Attending Unavailable Allergies Allergy Classification Reported Allergen(s) Allergy Type Date of Onset Reaction(s) Facility (6 sources) patient allergy list reviewed by nurse or physicia Propensity to adverse reactions 5 Comment:Done [facility] Other (6 sources) Allergies Reconciled Propensity to adverse reactions Unknown [facility] Other Encounters Encounter Date Encounter Type Care Provider Facility Start: 12-13-2023 End: 12-13-2023 ambulatory [facility] Work Phone: Start: 12-13-2023 End: 12-13-2023 Patient encounter procedure [facility] Work Phone: Start: 11-19-2023 End: 11-20-2023 ambulatory Marc Nowak MD Facility:[facility] Start: 10-29-2023 End: 10-30-2023 ambulatory Marc Nowak MD Facility:[facility] [place] Start: 10-15-2023 End: 10-15-2023 ambulatory MD Vashti Clark Work Phone: [facility] Work Phone: Start: 10-15-2023 End: 10-15-2023 Patient encounter procedure MD Vashti Clark Work Phone: [facility] Work Phone: Start: 10-04-2023 End: 10-04-2023 ambulatory MD Vashti Clark Work Phone: [facility] Work Phone: Start: 10-04-2023 End: 10-04-2023 Patient encounter procedure MD Vashti Clark Work Phone: [facility] Work Phone: Start: 10-01-2023 End: 10-02-2023 ambulatory Marc Nowak MD Facility:[facility] [place] Start: 09-24-2023 End: 09-25-2023 ambulatory Marc Nowak MD Facility:[facility] Start: 09-13-2023 End: 09-13-2023 ambulatory Willy Yancey Facility:[facility] Start: 09-13-2023 End: 09-13-2023 Patient encounter procedure MD Vashti Clark Work Phone: [facility] Start: 09-13-2023 End: 09-13-2023 Patient encounter procedure MD Vashti Clark Work Phone: [facility] Vascular Surgery Work Phone: Start: 08-30-2023 End: 08-30-2023 ambulatory [facility] Work Phone: Start: 08-30-2023 End: 08-30-2023 Patient encounter procedure [facility] Work Phone: Start: 08-27-2023 End: 08-27-2023 ambulatory Ny Jin Other [facility] Other Start: 08-27-2023 Telephone encounter Ny Jin [facility] [employer] Start: 08-23-2023 End: 08-23-2023 ambulatory Ny Jin Other [facility] Other Start: 08-23-2023 Office outpatient ne w 45 minutes Ny Jin [facility] Start: 08-16-2023 End: 08-16-2023 ambulatory Vashti Clark Other [facility] Other Start: 08-16-2023 Office outpatient vi sit 15 minutes Vashti Clark [facility] Start: 08-16-2023 Telephone encounter Vashti Clark [facility] Start: 08-16-2023 End: 08-16-2023 Patient encounter procedure [facility]- Start: 08-13-2023 End: 08-13-2023 ambulatory Jose Najera II Other [facility] Other Start: 08-13-2023 Telephone encounter Jose Najera II [facility] Start: 07-03-2023 End: 07-03-2023 ambulatory Vashti Clark Other [facility] Other Start: 07-03-2023 Telephone encounter Vashti Clark [facility] Start: 06-27-2023 Patient encounter procedure [facility]- Start: 06-18-2023 End: 06-18-2023 ambulatory ANABELLA STEWART Not Available Start: 06-11-2023 End: 06-11-2023 ambulatory Vashti Clark Other [facility] Other Start: 06-11-2023 Telephone encounter Vashti Clark [facility] Start: 06-01-2023 End: 06-01-2023 ambulatory ANABELLA STEWART Not Available Start: 05-29-2023 End: 05-29-2023 ambulatory Vashti Clark Other [facility] Other Start: 05-29-2023 Office outpatient vi sit 15 minutes Vashti Clark [facility] Start: 05-29-2023 Telephone encounter Vashti Clark [facility] Start: 05-14-2023 End: 05-14-2023 ambulatory Jose Roaring [place] II Other [facility] Other Start: 05-14-2023 Telephone encounter Jose Reinaldo II [facility] Start: 04-02-2023 End: 04-02-2023 ambulatory Vashti Clark Other [facility] Other Start: 04-02-2023 Telephone encounter Vashti Clark [facility] Start: 03-15-2023 End: 03-15-2023 ambulatory Jose Roaring [place] II Other [facility] Other Start: 03-15-2023 Office outpatient vi sit 25 minutes Jose Roaring [place] II [facility] Start: 02-26-2023 End: 02-26-2023 ambulatory Vashti Clark Other [facility] Other Start: 02-26-2023 Telephone encounter Vashti Clark [facility] Start: 02-08-2023 End: 02-08-2023 ambulatory Jose Roaring [place] II Other [facility] Other Start: 02-08-2023 Office outpatient vi sit 25 minutes Jose Reinaldo II [facility] Start: 01-19-2023 End: 01-19-2023 ambulatory Vashti Clark Other [facility] Other Start: 01-19-2023 Telephone encounter Vashti Clark [facility] Start: 01-18-2023 End: 01-18-2023 ambulatory Vashti Clark Other [facility] Other Start: 01-18-2023 Office outpatient vi sit 15 minutes Vashti Clark [facility] Start: 01-17-2023 End: 01-17-2023 ambulatory Jose Najera II Other [facility] Other Start: 01-17-2023 Telephone encounter Jose Najera II [facility] Start: 12-13-2022 End: 12-13-2022 ambulatory Vashti Clark Other [facility] Other Start: 12-13-2022 Telephone encounter Jose Najera II [facility] Start: 12-12-2022 End: 12-13-[address] VASHTI CLARK Facility: Start: 12-12-2022 Office outpatient vi sit 15 minutes Vashti Clark [facility] Start: 11-02-2022 End: 11-02-2022 ambulatory Jose Najera II [facility] Other Start: 11-02-2022 Office outpatient vi sit 25 minutes Jose Roaring [place] II [facility] Start: 10-10-2022 End: 10-10-2022 ambulatory Jose Peñale KRISTY Other [facility] Other Start: 10-10-2022 Telephone encounter Jose Peañle II [facility] Start: 06-23-2022 End: 06-23-2022 ambulatory MD Vashti Clark Work Phone: [facility] Work Phone: Start: 06-23-2022 End: 06-23-2022 Patient encounter procedure MD Vashti Clark Work Phone: [facility] [place] [facility] Start: 04-13-2022 End: 04-13-2022 ambulatory Jose Roaring [place] II Other [facility] Other Start: 04-13-2022 Telephone encounter Jose Roaring [place] II [facility] Start: 03-06-2022 End: 03-06-2022 ambulatory Wayne Mccallum Other [facility] Other Start: 03-06-2022 Office outpatient vi sit 15 minutes Wayne Mccallum [facility] [place] Start: 01-18-2022 (Post-Op) Post-Op Jose Roaring [place] II [facility] Start: 01-18-2022 End: 01-18-2022 ambulatory Jose Roaring [place] II Other [facility] Other Start: 12-07-2021 (Post-Op) Post-Op Jose Reinaldo II [facility] Start: 12-07-2021 End: 12-07-2021 ambulatory Jose Roaring [place] II Other [facility] Other Start: 11-21-2021 Pre-procedure evaluation check Jose Reinaldo II Other [facility] Other Start: 11-16-2021 End: 11-16-2021 ambulatory Jose Reinaldo II Other [facility] Other Start: 11-16-2021 Office outpatient vi sit 15 minutes Jose [place] II [facility] Start: 10-14-2021 (Prolonged) Prolonge d Services Jose Roaring [place] II [facility] Start: 10-14-2021 End: 10-14-2021 ambulatory Jose Roaring [place] II Other [facility] Other Start: 10-06-2021 End: 10-06-2021 ambulatory Jose Najera II Other [facility] Other Start: 10-06-2021 Office outpatient vi sit 25 minutes Jose Najera II [facility] Start: 09-13-2021 End: 09-13-2021 ambulatory Jose Najera II Other [facility] Other Start: 09-13-2021 Office outpatient vi sit 25 minutes Wayne Payneer [facility] [place] Start: 09-13-2021 Telephone encounter Jose Najera II [facility] Start: 08-09-2021 End: 08-09-2021 ambulatory Wayne Mccallum Other [facility] Other Start: 08-09-2021 Telephone encounter Wayne Mccallum [facility] Start: 07-28-2021 End: 07-28-2021 ambulatory Wayne Mccallum Other [facility] Other Start: 07-28-2021 Office outpatient vi sit 15 minutes Wayne Felter [facility] [place] Start: 06-27-2021 Adult health examination Jose Najera II Other [facility] Other Start: 05-12-2021 Office outpatient vi sit 15 minutes Wayne Felter [facility] [place] Medical Equipment Procedure Code Equipment Code Equipment Origin al Text Equipment Identifier Dates Arthroplasty, knee, total, minimally invasive Orthopaedic cement, non-medicated [id number] [facility] Start: 10-24-2021 Arthroplasty, knee, total, minimally invasive Uncoated knee femur prosthesis, metallic ()[id number] FDA Start: 10-24-2021 Arthroplasty, knee, total, minimally invasive Tibial insert ()[id number] FDA Start: 10-24-2021 Arthroplasty, knee, total, minimally invasive Polyethylene patella prosthesis ()[id number] FDA Start: 10-24-2021 Arthroplasty, knee, total, minimally invasive Knee stem ()[id number] FDA Start: 10-24-2021 Arthroplasty, knee, total, minimally invasive Uncoated knee tibia prosthesis, metallic ()[id number] FDA Start: 10-24-2021 Immunizations Immunization Date Immunization Notes Care Provider Vincenzo zamora 05-29-2023 influenza virus vaccine, unspecified formulation [facility] 05-29-2023 influenza, high dose seasonal, preservative-free Vashti Clark Other [facility] [employer] Other 04-11-2021 COVID-19 mRNA, Comirnaty (Pfizer) MD Vashti Clark Work Phone: [facility] 09-07-2020 COVID-19 mRNA Comirnatwinter (Pfizer) MD Vashti Clark Work Phone: [facility] 08-17-2020 COVID-19 mRNA Comirnaty (Pfizer) MD Vashti Clark Work Phone: [facility] 05-24-2020 Kenalog -40 mg Wayne Felter Other [facility] Other 03-31-2020 influenza virus vaccine, split virus (incl. purified surface antigen) Jose Najera II Other [facility] Other 03-31-2020 influenza virus vaccine, unspecified formulation [facility] 08-11-2019 Kenalog -40 mg Wayne Felter Other [facility] Other 11-04-2018 Kenalog -40 mg Wayne Felter Other [facility] Other 03-19-2018 Daya Mccallum Other [facility] Other 03-12-2018 Theraputic Injection Wayne Kerrymateo Other [facility] Other 03-05-2018 Daya Mccallum Other [facility] Other 02-26-2018 Daya Mccallum Other [facility] Other 02-19-2018 Daya Mccallum Other [facility] Other 11-27-2017 Kenalog -40 mg Wayne Mccallum Other [facility] Other 05-31-2016 influenza virus vaccine, split virus (incl. purified surface antigen) Jose Roaring Spring II Other [place] [employer] Other 05-31-2016 influenza virus vaccine, unspecified formulation [facility] 05-31-2016 pneumococcal polysaccharide vaccine, 23 valent Jose Roaring Spring II Other [facility] Medications Current Medications Medication Drug Class(es) Dates [...] 12:00am docusate sodium 50 mg / sennosides, senior living 8.6 mg oral tablet (3 sources) Start: [...] Famotidine Active 20 MG PO Daily October 31, 2021 12:00am hyoscyamine sulfate 0.125 [...] Taking; Refills: 1; Qty: 90 Tablet; Provider: Ambre Porter Completed/Discontinued Medications Medication Drug Class(es) Dates [...] 2:03pm Start: 10-06-2021 take 1 capsule by [facility] every twelve hours Cefadroxil 500 MG 1 tablet Orally every 12 hrs for 7 days MED TO BED UPON DISCHARGE DOS:10/24/2021 Sep, Active celecoxib 200 mg oral capsule (13 [...] DISCHARGE DOS:10/24/2021 Sep, Active polyethylene glycol 3350 32182 mg powder for oral solution (8 sources) [...] 11-27-2017 Kenalog -40 mg November, 40 mg Payers Date Payer Category Payer Medicare 2023 Unknown 2022 Self-pay [id number] 1961 Medicare [id number] 2.1 [id number] 1961 Unknown [id number] 2.1 [id number] 1950 Unknown [id number] 2.16.84 [id number] 1950 Unknown [id number] 2.16.840 .[id number] 1950 Unknown [id number] 2.16.840 .[id number] 1950 Unknown [id number] 2.16. [id number] 1950 Unknown [id number] 2.16. [id number] 1950 Unknown [id number] 2.16. [id number] 1950 Unknown [id number] 2.16. [id number] Unknown Karen YOO/JM [id number] Unknown [id number] 2.16.8 [id number] Unknown [id number] 2.16.8 [id number] Plan of Treatment Date Care Activity Detail Author Start: 10-15-2023 Patient referral [facility] Work Phone: Patient referral [facility] Work Phone: Problems Active Problems Problem Classification Problem Date [...] pain] Unclassified (2 sources) Lumbar pain M54.50 Procedures Date Procedure Procedure Detail Performing Clinician [...] neoplasm of breast Jose Najera II Other Results Test Name Value Interpretation Reference Range Facil ity US ankle/arm indiceson US ankle/arm indices [facility] Main [place] [address] [place] [address] Ultrasound Report Signed Patient: Kami Fink MR#: [id number] 31 : 1950 Acct:[id number] Age/Sex: 73 / F ADM Date: 09/13/23 Loc: [facility] Room: Type: [facility] Attending Dr: Willy Yancey MD Ordering Provider: [...] Willy Yancey MD09/13/2023 2:37 PM Dictation Location: [place] [address] Tech: Marquita Mooreley Transcribed By: [facility] 09/13/23 143 Dictated By: Willy Yancey MD 09/13/23 143 Signed By: 09/13/23 143 [facility] XR knee RT 2Von 11-02-2022 XR knee RT 2V [facility] [place] [address] XRay Report Signed Patient: Kami Fink MR#: [id number] [birth year] : 1950 Acct:[id number] Age/Sex: 72 / F ADM Date: 11/02/22 Loc[place] [facility] Room: Type: [facility] Attending Dr: Jose Najera II, MD Copies [...] Mondragon Jr., D.OEdgard11/02/2022 3:18 PM Dictation Location: [facility]14 Transcribed By: [facility] 11/02/221517 Dictated By: Audie Mondragon Jr, DO 11/02/221516 Signed By: 11/02/221517 [facility] XR knee RT 2V [facility] [employer] Other XR knee RT 2V [facility] Main [facility] [employer] Other XR knee RT 2V [address] [place] [address] [employer] Other [place] [address] [facility] Other XR knee RT 2V XRay Report [facility] [employer] Other XR knee RT 2V Signed [facility] Other XR knee RT 2V Patient: Krystle Fink MR#: [id number] [place] [employer] Other XR knee RT 2V 31 [facility] Other XR knee RT 2V : 1950 Acct:[id number] [place] [employer] Other XR knee RT 2V Age/Sex: 72 / F ADM Date: 11/02/22 [facility] Other XR knee RT 2V Loc: [facility] Room: Type : [facility] [employer] Other XR knee RT 2V Attending Dr: Jose Najera II, MD [facility] Other XR knee RT 2V Copies to: Jose Najera MD [facility] Other XR knee RT 2V Ordering Provider: Jose aNjera MD [facility] Other XR knee RT 2V Date of Service: 11/02/22 [facility] Other XR knee RT 2V XR/XR knee RT 2V: History of total right knee replacement [facility] Other XR knee RT 2V RIGHT KNEE - 2 views N [employer] Other XR knee RT 2V CLINICAL HISTORY: Follow-up right TKA [facility] Other XR knee RT 2V COMPARISON: Right knee 01/18/2022 [facility] Other XR knee RT 2V FINDINGS: [facility] Other XR knee RT 2V No evidence of hardware complication or acute bony process. [facility] Other XR knee RT 2V XR/XR knee RT 2V [facility] Other XR knee RT 2V IMPRESSION: [employer] Other XR knee RT 2V NO EVIDENCE OF HARDWARE COMPLICATION. [facility] Other XR knee RT 2V Impression dictated by: Audie Mondragon Jr., D.OEdgard11/02/2022 3:18 PM [facility] Other XR knee RT 2V Dictation Location: [place] [address] [employer] Other XR knee RT 2V Transcribed By: PWS 11/02/22 [facility] [employer] Other XR knee RT 2V Dictated By: Audie Mondragon Jr, DO 11/02/22 [facility] [employer] Other XR knee RT 2V Signed By: [facility] Other XR knee RT 2V 11/02/22 [facility] [employer] Other Social History Date Type Detail Facility Start: 10-26-2021 End: 10-26-2021 Tobacco smoking status NHIS Never smoked tobacco (finding) [facility] Start: 1950 Sex Assigned At Female F [facility] Unknown if ever smoked [facility] Other Sex Assigned At Sex Assigned At Bir th [facility] Other Vital Signs Date Time Vital Sign Value Performing Clinician Facility 12-13-2023 14:51-0400 Body height 161.29 cm [facility] 12-13-2023 14:51-0400 Body mass index (BMI) [Ratio] 35.4 kg/m2 [facility] 12-13-2023 14:51-0400 Body weight 92.07 kg [facility] 10-15-2023 11:18-0400 Body height 161.29 cm MD Vashti Clark Work Phone: [facility] 10-15-2023 11:18-0400 Body mass index (BMI) [Ratio] 36.6 kg/m2 MD Vashti Clark Work Phone: [facility] 10-15-2023 11:18-0400 Body weight 95.36 kg MD Vashti Clark Work Phone: [facility] 10-15-2023 11:18-0400 Diastolic blood pressure 81 mm[Hg] MD Vashti Clark Work Phone: [facility] 10-15-2023 11:18-0400 Heart rate 77 /min MD Vashti Clark Work Phone: [facility] 10-15-2023 11:18-0400 Systolic blood pressure 142 mm[Hg] MD Vashti Clark Work Phone: [facility] 09-13-2023 11:54-0500 Body height 161.29 cm MD Vashti Clark Work Phone: [facility] 09-13-2023 11:54-0500 Body mass index (BMI) [Ratio] 37.8 kg/m2 MD Vashti Clark Work Phone: [facility] 09-13-2023 11:54-0500 Body temperature 97.6 [degF] MD Vashti Clark Work Phone: [facility] 09-13-2023 11:54-0500 Body weight 98.42 kg MD Vashti Clark Work Phone: [facility] 09-13-2023 11:54-0500 Diastolic blood pressure 82 mm[Hg] MD Vashti Clark Work Phone: [facility] 09-13-2023 11:54-0500 Heart rate 89 /min MD Vashti Clark Work Phone: [facility] 09-13-2023 11:54-0500 Respiratory rate 16 /min MD Vashti Clark Work Phone: [facility] 09-13-2023 11:54-0500 SaO2% (BldA) [Mass fraction] 99 % MD Vashti Clark Work Phone: [facility] 09-13-2023 11:54-0500 Systolic blood pressure 124 mm[Hg] MD Vashti Clark Work Phone: [facility] 08-30-2023 10:41-0500 Body height 161.29 cm [facility] 08-30-2023 10:41-0500 Body mass index (BMI) [Ratio] 37.8 kg/m2 [facility] 08-30-2023 10:41-0500 Body weight 98.42 kg [facility] 08-30-2023 10:41-0500 Diastolic blood pressure 81 mm[Hg] [facility] 08-30-2023 10:41-0500 Heart rate 87 /min [facility] 08-30-2023 10:41-0500 Systolic blood pressure 155 mm[Hg] [facility] 08-23-2023 09:20-0500 Body height 161.29 cm Ny Jin Other [facility] [employer] Other 08-23-2023 09:20-0500 Body mass index (BMI) [Ratio] 37.48 kg/m2 Ny Jin Other [facility] [employer] Other 08-23-2023 09:20-0500 Body weight 97.52 kg Ny Jin Other [employer] Other 08-16-2023 10:00-0500 Body height 161.29 cm Vashti Clark Other [facility] 08-16-2023 10:00-0500 Body mass index (BMI) [Ratio] 37.83 kg/m2 Vashti Clark Other [facility] [employer] Other 08-16-2023 10:00-0500 Body weight 98.43 kg Vashti Clark Other [facility] [employer] Other 08-16-2023 10:00-0500 Body weight 98.42 kg [facility] 08-16-2023 10:00-0500 Diastolic blood pressure 81 mm[Hg] Vashti Clark Other [facility] 08-16-2023 10:00-0500 Systolic blood pressure 147 mm[Hg] Vashti Clark Other [facility] 05-29-2023 11:30-0500 Body height 161.29 cm Vashti Clark Other [facility] [employer] Other 05-29-2023 11:30-0500 Body mass index (BMI) [Ratio] 37.41 kg/m2 Vashti Clark Other [facility] [employer] Other 05-29-2023 11:30-0500 Body weight 97.34 kg Vashti Clark Other [facility] Other 05-29-2023 11:30-0500 Diastolic blood pressure 85 mm[Hg] Vashti Clark Other [facility] Other 05-29-2023 11:30-0500 Respiratory rate 16 /min Vashti Clark Other [facility] Other 05-29-2023 11:30-0500 Systolic blood pressure 174 mm[Hg] Vashti Clark Other [employer] Other 03-15-2023 08:45-0400 Body height 161.29 cm Jose Najera II Other [employer] Other 03-15-2023 08:45-0400 Body mass index (BMI) [Ratio] 38.01 kg/m2 Jose Peñale II Other [employer] Other 03-15-2023 08:45-0400 Body weight 98.88 kg Jose Peñale II Other [employer] Other 01-18-2023 11:15-0400 Body height 161.29 cm Vashti Clark Other [employer] Other 01-18-2023 11:15-0400 Body mass index (BMI) [Ratio] 38.01 kg/m2 Vashti Clark Other [employer] Other 01-18-2023 11:15-0400 Body weight 98.88 kg Vashti Clark Other [employer] Other 01-18-2023 11:15-0400 Diastolic blood pressure 81 mm[Hg] Vashti Clark Other [employer] Other 01-18-2023 11:15-0400 Systolic blood pressure 167 mm[Hg] Vashti Clark Other [employer] Other 12-12-2022 13:45-0400 Body height 161.29 cm Vashti Clark Other [employer] Other 12-12-2022 13:45-0400 Body mass index (BMI) [Ratio] 37.48 kg/m2 Vashti Clark Other [employer] Other 12-12-2022 13:45-0400 Body weight 97.52 kg Vashti Clark Other [employer] Other 12-12-2022 13:45-0400 Diastolic blood pressure 59 mm[Hg] Vashti Amber Other [employer] Other 12-12-2022 13:45-0400 Systolic blood pressure 147 mm[Hg] Vashti Amber Other [employer] Other 11-02-2022 15:45-0400 Body height 167.64 cm Jose Roaring [place] II Other [employer] Other 12-07-2021 11:45-0400 Body height 167.64 cm Jose [place]aring [place] II Other [employer] Other 12-07-2021 11:45-0400 Body mass index (BMI) [Ratio] 34.7 kg/m2 Jose Roaring [place] II Other [employer] Other 12-07-2021 11:45-0400 Body weight 97.52 kg Jose Reinaldo II Other [employer] Other 11-16-2021 11:45-0400 Body height 167.64 cm Jose Reinaldo II Other [employer] Other 11-16-2021 11:45-0400 Body mass index (BMI) [Ratio] 34.7 kg/m2 Jose Reinaldo II Other [employer] Other 11-16-2021 11:45-0400 Body weight 97.52 kg Jose Roaring [place] II Other [employer] Other 10-06-2021 16:00-0400 Body height 167.64 cm Jose Roaring [place] II Other [employer] Other 10-06-2021 16:00-0400 Body mass index (BMI) [Ratio] 34.7 kg/m2 Jose Roaring [place] II Other [employer] Other 10-06-2021 16:00-0400 Body weight 97.52 kg Jose Najera II Other [employer] Other 09-13-2021 16:15-0500 Body height 167.64 cm Wayne Kerrymateo Other [employer] Other 09-13-2021 16:15-0500 Body mass index (BMI) [Ratio] 34.7 kg/m2 Wayne Kerrymateo Other [employer] Other 09-13-2021 16:15-0500 Body weight 97.52 kg Wayne Mccallum Other [employer] Other Clinical Notes 05-12-2021 to 08-23-2023 Note Date [...] Aug, Lower extremity edema (ICD-10 - R60.0) [employer] Other 02-01-2024 Evaluation note* Encounter Date Diagnosis Assessment Notes Treatment Notes Treatment Clinical Notes Aug, Leg edema, right (ICD-10 - R60.0) Check US today, discussed other possibilities but r/o DVT first. [facility] Other 12-19-2023 Evaluation note* Encounter Date Diagnosis Assessment Notes Treatment Notes Treatment Clinical Notes Jun, Lumbar pain (ICD-10 - M54.50) [facility] Other 11-27-2023 Evaluation note* Encounter Date Diagnosis Assessment Notes Treatment Notes Treatment Clinical Notes May, DDD (degenerative disc disease), lumbar (ICD-10 - M51.36) [facility] Other 11-14-2023 Evaluation note* Encounter Date Diagnosis Assessment Notes Treatment Notes Treatment Clinical Notes May, Peripheral polyneuropathy (ICD-10 - G62.9) Requests labs to r/o metabolic causes. May, Lumbar pain (ICD-10 - M54.50) Chronic lumbar pain. Agrees to start w xray. May, Paronychia, toe, lef t (ICD-10 - L03.032) Pt requests antibiotic at end of visit. Keep foot clean and dry. [facility] Other 08-31-2023 Evaluation note* Encounter Date Diagnosis [...] wedding planned the end of August 2023. [facility] Other 07-27-2023 Evaluation note* Encounter Date Diagnosis [...] it is not something that I prescribed. [facility] Other 07-06-2023 Evaluation note* Encounter Date Diagnosis Assessment Notes Treatment Notes Treatment Clinical Notes Jan, Easy bruisability (ICD-10 - R23.3) Pt will get labs today. Discussed possible link w the frequent NSAIDs Jan, Essential (primary) hypertension (ICD-10 - I10) Due for labs. Possible elevated glucose - nonfasting, had steroid pills and injections due to foot issues. She is seeing podiatry for plantar fasciitis. [facility] Other 07-06-2023 Evaluation note* Encounter Date Diagnosis [...] symptoms. Any developing patterns. Stay well hydrated. [facility] Other 05-31-2023 NotePROCEDURE: XR FOOT LT MIN [...] authenticated by: TIM TORREZ Date: 2022-12-13 08:39[facility]05-30-2023 Evaluation note* Encounter Date Diagnosis Assessment Notes Treatment Notes Treatment Clinical Notes November, Left foot pain (ICD-10 - M79.672) Discussed primary concern of stress fracture. Pt agrees to xray. Reviewed ortho notes. She is to followup there prn. [facility] Other 2023 Evaluation note* Encounter Date Diagnosis Assessment Notes Treatment Notes Treatment Clinical Notes Oct, History of total right knee replacement (ICD-10 - Z96.651) Oct, Primary osteoarthritis of both knees (ICD-10 - M17.0) Oct, Other [facility] at [facility] on 10/24/2021 Happy with surgical result [...] as needed basis for the left knee. [facility] Other 09-29-2022 Evaluation note* Encounter Date Diagnosis Assessment Notes Treatment Notes Treatment Clinical Notes Mar, Primary osteoarthritis of both knees (ICD-10 - M17.0) [facility] Other 08-22-2022 Evaluation note* Encounter Date Diagnosis [...] note writ ten by Richar Kruger LPN, Work Measurement Engineer. Edited and approved by Dr. Wayne Mccallum MD. [facility] Other 07-06-2022 Evaluation note* Encounter Date Diagnosis Assessment Notes Treatment Notes Treatment Clinical Notes Jan, Primary osteoarthritis of both knees (ICD-10 - M17.0) Jan, Aftercare following joint replacement surgery (ICD-10 - Z47.1) Jan, History of total right knee replacement (ICD-10 - Z96.651) Jan, Other [facility] at [facility] on 10/24/2021 Doing well Discussed post-op dental prophylaxis. Shared decision made to continue prophylactic antibiotics indefinitely. Follow-up at 1 year post-op for repeat examination and 2 view x-rays of the right knee. Patient instructed to call with any questions or concerns. [facility] Other 05-25-2022 Evaluation note* Encounter Date Diagnosis Assessment Notes Treatment Notes Treatment Clinical Notes November, Primary osteoarthritis of both knees (ICD-10 - M17.0) November, Aftercare following joint replacement surgery (ICD-10 - Z47.1) November, History of total right knee replacement (ICD-10 - Z96.651) November, Other [facility] at [facility] on 10/24/2021 Doing well Patient may continue activities as tolerated. Continue PT as recommended. Continue taking [id number] anti-inflammatori es as needed for assistance with swelling and pain associated with the operative extremity. Follow-up in 6 weeks for repeat examination and long standing x-rays. [facility] Other 05-04-2022 Evaluation note* Encounter Date Diagnosis [...] for 3 views of the right knee. [facility] Other 04-01-2022 Evaluation note* Encounter Date Diagnosis [...] patient could proceed with surgery safely. The product line manager was vital for surgery timing and [...] plans. Prolonged services time spent: 37 minutes [facility] Other 04-01-2022 History general Narrative - Reported* Type Description Date Medical History hypertension Surgical History bilateral SANDRO Surgical History abdominal surgery Surgical History RT TKR 10/2021 Hospitalization History see above [facility] Other 04-01-2022 History general Narrative - Reported* Type Description Date Medical History hypertension Surgical History bilateral SANDRO Surgical History abdominal surgery Surgical History RT TKR 10/2021 Surgical History COLONOSCOPY Hospitalization History see above [facility] Other 04-01-2022 History general Narrative - Reported* Type Description Date Medical History hypertension Medical History Frozen shoulder Medical History Lumbar pain Surgical History bilateral SANDRO Surgical History abdominal surgery Surgical History RT TKR 10/2021 Surgical History COLONOSCOPY Hospitalization History see above [facility] Other 03-24-2022 Evaluation note* Encounter Date Diagnosis [...] rehab stay. Joints Meeting Checklist - Pharmacy: [facility] to bed - Approach/Technique: ZULLY - Implants: [...] elected to proceed with the above surgery. [facility] Other 03-01-2022 Evaluation note* Encounter Date Diagnosis [...] note writ ten by Richar Kruger LPN, Work Measurement Engineer. Edited and approved by Dr. Wayne Mccallum MD. [facility] Other 03-01-2022 Evaluation note* Encounter Date Diagnosis Assessment Notes Treatment Notes Treatment Clinical Notes Sep, Primary osteoarthritis of both knees (ICD-10 - M17.0) [facility] Other 01-25-2022 Evaluation note* Encounter Date Diagnosis Assessment Notes Treatment Notes Treatment Clinical Notes Jul, Primary osteoarthritis of both knees (ICD-10 - M17.0) [facility] Other 01-13-2022 Evaluation note* Encounter Date Diagnosis [...] note writ ten by Richar Kruger LPN, Work Measurement Engineer. Edited and approved by Dr. Wayne Mccallum MD. [facility] Other 10-28-2021 Evaluation note* Encounter Date Diagnosis [...] note writ ten by Nissa Murillo CMA, Work Measurement Engineer. Edited and approved by Dr. Wayne Mccallum MD. [facility] Other Evaluation noteNo assessment information available [facility] Work Phone: Evaluation noteNo InformationNort SHAPE Other Evaluation note* Diagnosis Onset Date Resolution Status Right femoral vein DVT acute [facility] Work Phone: Evaluation note* Diagnosis Onset Date Resolution Status Essential (primary) hypertension acute Knee arthropathy acute Right femoral vein DVT acute PAD (peripheral artery disease) acute Primary osteoarthritis of left knee acute [facility] Work Phone: Evaluation note* Diagnosis Onset Date Resolution Status Essential (primary) hypertension acute Knee arthropathy acute Right femoral vein DVT acute PAD (peripheral artery disease) acute Primary osteoarthritis of left knee acute PAD (peripheral artery disease) acute Venous ulcer of left leg acu te [facility] Work Phone: Evaluation note* Diagnosis Onset Date Resolution Status Primary osteoarthritis of left knee acute PAD (peripheral artery disease) acute Venous ulcer of left leg acu te Primary osteoarthritis of left knee acute [facility] Work Phone: History general Narrative - Reported* Type Description Date Medical History hypertension Surgical History bilateral SANDRO Surgical History abdominal surgery [facility] Other Hospital Discharge instructionsAmbulatory Orders* Referral to Wound Care Time Frame: 10/15/23, Location: None Selected [facility] Work Phone: Family History Relationship Condition Age [...] Advance Directives No November 29 8 12:37pm Advance Directive Response Recorded Date/ Time Advance Directives No November 29 8 1:37pm Summary Purpose Reason for Referral Reason evaluate and t reat Diagnosis 1 Lumbar pain (M54.50) Referral Organization [facility] urosurgery Referring Provider First Name Ny Referring Provider Last Name Annabel Referring Provider Specialty Nurse Pract itioner Referred Organization [facility] Pain Managemen t Bone [place] Referred Provider Wayne Mccallum Referred Address [address] [place],[address] Referred Provider Specialty Pain Medicin e Referral Priority Routine General Notes Eryn Reynoso 02:02:11 PM >received today, patient previously seen by Dr Mccallum (last visit Feb 2022) and is still considered established. sending p2p at this time for scheduling. Reason evaluate and t reat for peripheral vascular disease Diagnosis 1 Peripheral vascular disease (I73.9) Referral Organization [facility] urosurger Referring Provider First Name Ny Referring Provider Last Name Annabel Referring Provider Specialty Nurse Pract itioner Referred Organization [facility] Vascular Surge ry Referred Provider Willy Yancey Referred Address [address],[place], [place],[address] Referred Provider Specialty Vascular Samantha piotr Referral Priority Routine General Notes Eryn Reynoso 02:08:33 PM >received today, p2p sent for scheduling Reason *Waiting for appt chronic lumbar - recent MRI Diagnosis 1 Lumbar pain (M54.50) Referral Organization [facility] Brando díaz Referring Provider First Name Vashti Referring Provider Last Name Amber Referring Provider Specialty Family Medi cine Referred Organization [facility] Spine Center Referred Provider Jose Clark Referred Address [address] ,[place], [place],[address] Referred Provider Specialty Neurological Surgery Referral Priority [...] InformationNo InformationH & P RIGHT TOTAL KNEE [id number] WK WOUND CHECKRecheck Right Knee6 WK RECHECKLT [...] and content) DATE CREATED AUTHOR 12/22/2022 [facility] DATE CREATED AUTHOR AUTHOR'S ORGANIZ ATION 06/20/2023 [facility] EPIC DATE CREATED AUTHOR AUTHOR'S ORGANIZ ATION 09/16/2023 [facility] DATE CREATED AUTHOR AUTHOR'S ORGANIZ ATION 11/25/2023 [facility] FOR RECORDS PERTAINING TO PATIENTS WHO [...] BE BASED ON THE PRIMARY CLINICAL RECORDS. [employer] provides no warranty or guarantee of the accuracy or completeness of information in this document.
--- NOTE | 2024-01-10 08:04 | VEIN_ITS ---
Patient Name: LINDA BARBOSA MR#: [id number] : 1950 Exam Date: 01/10/2024 Ordering Doctor: Greer Su M.D. RADIOLOGY REPORT PROCEDURE: VC EXT VENOUS REFLUX NAVJOT LMTD COMPARISON: None. INDICATIONS: I83.029 TECHNIQUE: Duplex imaging of the lower extremity to assess the deep and superficial venous system for the presence of deep or superficial venous incompetence and to document the location and severity of disease. The study includes evaluation of the great saphenous vein (GSV), anterior accessory saphenous vein (AASV) and small saphenous vein (SSV). Patient scanned in reverse Trendelenburg and standing. FINDINGS: RIGHT LOWER EXTREMITY: Saphenofemoral Junction Reflux: Yes 9.4mm 2.2 sec GSV: Diam (mm) Reflux/ Time (sec) Proximal Thigh 5.5 Yes 0.8 Mid Thigh 4.1 Yes 0.7 Distal Thigh 4.0 No Prox Calf 3.1 No Mid Calf 2.7 No Saphenopopliteal Junction Reflux: 3.9mm No SSV: Proximal Calf 2.2 Yes 0.6 Mid Calf 2.0 No AASV: Proximal Thigh 4.1 Yes 0.9 Mid Thigh 3.1 Yes 0.7 Distal Thigh Thrombi: No acute or chronic thrombus visualized Compressibility: Normal Flow: Normal Preforator: No perforators visualized, difficult to image calf due to fluid filled edema. Tech Note: Incompetent GSV. Patent varicose vein prox/med calf 3.8mm with 0.5s reflux. Patent varicose vein dist/med thigh off of GSV 3.9mm with 0.8s reflux. LEFT LOWER EXTREMITY: Saphenofemoral Junction Reflux: Yes 7.3 mm 1.0 sec GSV: Diam (mm) Reflux/Time (sec) Proximal Thigh 6.4 Yes 0.4 Mid Thigh 4.6 Yes 0.7 Distal Thigh 4.9 Yes 1.0 Prox Calf 5.1 Yes 0.8 Mid Calf 4.9 Yes 0.9 Saphenopopliteal Junction Relux: 3.0 mm Yes 0.6 SSV: Proximal Calf 2.5 Yes 0.6 Mid Calf 2.6 No AASV: Proximal Thigh 6.1 Yes 1.9 Mid Thigh Distal Thigh Thrombi: No acute or chronic thrombus visualized Compressibility: Normal Flow: Normal Patrol Deputy Sheriff: Dist/med calf in area of wound 6.2mm with 1.4s reflux. Tech Note: Incompetent GSV and sterile supply technician. Patent varicose vein prox/med calf off of GSV 3.9mm with 0.9s reflux. Patent varicose vein mid/med thigh off of GSV 5.3mm with 1.8s reflux. CONCLUSION: 1. Mild bilateral great saphenous vein venous insufficiency with saphenofemoral junction reflux 2. Minimal bilateral small saphenous vein venous insufficiency without dilatation 3. Mild bilateral anterior accessory saphenous vein venous insufficiency 4. Incompetent perforating vein in the left leg in the region of the patient's wound 5. Bilateral incompetent varicose veins measuring up to 5.3 mm Dictated by: Delroy Booth MD on 01/10/2024 at 15:05 Approved by: Delroy Booth MD on 01/10/2024 at 15:08
--- NOTE | 2024-01-10 08:04 | VEIN_ITS ---
The [place] [address] Patient Name: LINDA BARBOSA MRN: [id number] date: 1950 Sex: F Assigned Patient Location: Current Patient Location: Accession/Order Number: [id number] Exam Date: 01/10/2024 08:04 Report Date: 01/10/2024 10:57 At the request of: DANIEL ZARATE Procedure: VC SEGMENTAL PRESSURES EXAM: VC SEGMENTAL PRESSURES HISTORY: I73.9 , left leg ulcer COMPARISON: None. FINDINGS: Segmental pressures presented as follows (right, left) in mmHg. Brachial: 155, 163 Upper thigh: 187, 178 Lower thigh: 203, 167 Calf: 230, 170 DPA: 204, 161 PROOF TECHNICIAN HELPER: 207, 214 1st Toe: 106, 121 ELVIN: 1.27, 1.31 TBI: 0.65, 0.74 The ABIs are borderline elevated suggesting arterial sclerosis The TBI's are mildly low suggesting low risk of ischemia PVR waveforms: Right leg: Thigh: Moderate to severe peripheral arterial disease Above knee: Mild to moderate peripheral arterial disease Below knee: Mild to moderate peripheral arterial disease Right ankle: Moderate to severe peripheral arterial disease Left leg: Thigh: Moderate to severe peripheral arterial disease Above knee: Mild to moderate peripheral arterial disease Below knee: Mild to moderate peripheral arterial disease Right ankle: Moderate to severe peripheral arterial disease VEIN/VC SEGMENTAL PRESSURES IMPRESSION: ABIs suggests arterial sclerosis PVR waveform suggests mild to severe bilateral peripheral arterial disease Electronically authenticated by: NIKHIL ANTHONY Date: 01/10/2024 10:57
== END 2024-01-10 07:55 | disposition home or self-care (01) ==
LOC: VC 07:54
PROVIDERS: PCP Family Medicine; Visit Provider Student in an Organized Health Care Education/Training Program
DX: R94.39 Abnormal result of other cardiovascular function study (principal); I82.409 Acute embolism and thrombosis of unspecified deep veins of unspecified lower extremity; I73.9 Peripheral vascular disease, unspecified; I87.312 Chronic venous hypertension (idiopathic) with ulcer of left lower extremity
CPT/HCPCS: 93923; 93970

== ENCOUNTER 2024-01-21 10:24 | Outpatient (OUT) | payer MEDICARE, SELFPAY ==
--- NOTE | 2024-01-21 | XR_ITS ---
The [address] [address] Patient Name: LINDA BARBOSA MRN: [id number] date: 1950 Sex: F Assigned Patient Location: Current Patient Location: Accession/Order Number: [id number] Exam Date: 01/21/2024 10:25 Report Date: 01/21/2024 15:50 At the request of: TIM MAYORGA Procedure: XR knee LT 2V PROCEDURE: XR knee LT 2V COMPARISON: 01/07/2024 HISTORY: LEFT KNEE PAIN FINDINGS: BONES:Complex intra-articular depressed and displaced fracture of the lateral tibial plateau with genu varus. Moderate degenerative changes most significant in the anterior compartment SOFT TISSUES:Negative. No visible soft tissue swelling. EFFUSION:Small joint effusion OTHER: Negative. XR/XR knee LT 2V IMPRESSION: Complex depressed lateral tibial plateau fracture with minimal sclerotic healing Electronically authenticated by: NIKHIL ANTHONY Date: 01/21/2024 15:50
== END 2024-01-21 10:25 | disposition home or self-care (01) ==
LOC: EC 10:24
PROVIDERS: PCP Family Medicine; Visit Provider Orthopaedic Surgery
DX: S82.142A Displaced bicondylar fracture of left tibia, initial encounter for closed fracture (principal)
CPT/HCPCS: 73560

== ENCOUNTER 2024-01-21 16:03 | Outpatient (OUT) | payer MEDICARE, SELFPAY | END 2024-01-21 16:04 | disposition home or self-care (01) | LOC: WC 16:04 | PROVIDERS: PCP Family Medicine; Visit Provider Podiatrist Foot & Ankle Surgery | DX: S82.142A Displaced bicondylar fracture of left tibia, initial encounter for closed fracture (principal); I87.312 Chronic venous hypertension (idiopathic) with ulcer of left lower extremity; L97.822 Non-pressure chronic ulcer of other part of left lower leg with fat layer exposed | CPT/HCPCS: 15271; 73560; Q4196 ==

== ENCOUNTER 2024-01-31 15:42 | Outpatient (OUT) | payer MEDICARE, SELFPAY | END 2024-01-31 15:43 | disposition home or self-care (01) | LOC: WC 15:43 | PROVIDERS: PCP Family Medicine; Visit Provider Physician Assistant | DX: I87.312 Chronic venous hypertension (idiopathic) with ulcer of left lower extremity (principal); L97.822 Non-pressure chronic ulcer of other part of left lower leg with fat layer exposed | CPT/HCPCS: 15271; Q4196 ==

== ENCOUNTER 2024-02-11 14:40 | Outpatient (OUT) | payer MEDICARE, SELFPAY | END 2024-02-11 14:41 | disposition home or self-care (01) | LOC: WC 14:40 | PROVIDERS: PCP Family Medicine; Visit Provider Physician Assistant | DX: I87.312 Chronic venous hypertension (idiopathic) with ulcer of left lower extremity (principal); L97.822 Non-pressure chronic ulcer of other part of left lower leg with fat layer exposed | CPT/HCPCS: 15271; Q4196 ==

== ENCOUNTER 2024-02-18 09:12 | Outpatient (OUT) | payer MEDICARE, SELFPAY ==
--- NOTE | 2024-02-18 | XR_ITS ---
The [address] [address] Patient Name: LINDA BARBOSA MRN: [id number] date: 1950 Sex: F Assigned Patient Location: Current Patient Location: Accession/Order Number: [id number] Exam Date: 02/18/2024 09:15 Report Date: 02/20/2024 04:43 At the request of: TIM MAYORGA Procedure: XR knee LT 2V PROCEDURE: XR knee LT 2V HISTORY: LEFT KNEE PAIN ; lateral tibial plateau fracture COMPARISON: XR knee left 01/21/2024 FINDINGS: BONES:Prior fracture of lateral tibial plateau with depression of the large lateral fragment 6 mm. Small separate fragment displaced laterally. Intact femoral condyles and fibula. Degenerative osteophytes along the articular margins of patella. SOFT TISSUES:No visible soft tissue swelling. EFFUSION:Moderate joint effusion. OTHER: Negative. XR/XR knee LT 2V IMPRESSION: 1. Stable comminuted fracture of lateral tibial plateau with significant depression of the articular surface. Electronically authenticated by: TIM TORREZ Date: 02/20/2024 04:43
--- OUTSIDE RECORDS SUMMARY | 2024-02-18 09:30 | XMS_ITS | CCD ---
Author Organization [facility] CliniSyga Care Team Providers Care Housesmith Name Role Phone Wayne Mccallum Unavailable Jose Najera II Unavailable MD Vashti Clark Primary Care Provider MD Jose Najera II Attending Provider DR [...] Attending UnavailVashti Ricks Primary Care Unavailable MD aVshti Clark Primary Care Provider MD Willy Yancey Attending Provider She MUJICA, Marc Tavares Attending Unavailable She MUJICA, Christopherus Anusha Attending Unavailable She MUJICA, Kamilahrius Anusha Attending Unavailable She MUJICA, Marc Tavares Attending Unavailable Allergies Allergy Classification Reported Allergen(s) Allergy Type Date of Onset Reaction(s) Facility (6 sources) patient allergy list reviewed by nurse or physicia Propensity to adverse reactions 5 Comment:Done [employer] Other (6 sources) Allergies Reconciled Propensity to adverse reactions Unknown [employer] Other Medications Current Medications Medication Drug Class(es) [...] 12:00am docusate sodium 50 mg / sennosides, fpc 8.6 mg oral tablet (3 sources) Start: [...] Start: 10-06-2021 take 1 capsule by mo [facility] every twelve hours Cefadroxil 500 MG [...] DISCHARGE DOS:10/24/2021 Sep, Active polyethylene glycol 3350 94754 mg powder for oral solution (8 sources) [...] ankle/arm indiceson US ankle/arm indices [facility] [place] [address] Ultrasound Report Signed Patient: Kami Fink MR#: [id number] [birth year] : 1950 Acct:[id number] Age/Sex: 73 / F ADM Date: 09/13/23 Loc: [facility] Room: Type: [facility] Attending Dr: Willy Yancey MD Ordering [...] Willy Yancey MD09/13/2023 2:37 PM Dictation Location: [place] [address] Tech: Marquita Carlos Transcribed By: DALILA 09/13/23 1437 Dictated By: Willy Yancey MD 09/13/23 1435 Signed By: 09/13/23 1437 Normal [facility] XR knee RT 2Von 11-02-2022 XR knee RT 2V [facility] Main [place] [address] [place] [address] XRay Report Signed Patient: Kami Fink MR#: [id number] [birth year] : 1950 Acct:[id number] Age/Sex: 72 / F ADM Date: 11/02/22 [facility] [facility] Room: Type: [facility] Attending Dr: Jose Najera II, MD [...] Mondragon Jr., D.OEdgard11/02/2022 3:18 PM Dictation Location: [place] [address] Transcribed By: DALILA 11/02/22 1518 Dictated By: Audie Mondragon Jr, DO 11/02/22 1517 Signed By: 11/02/22 1518 Normal [facility] XR knee RT 2V [facility] Other XR knee RT 2V [facility] Main [facility] Other XR knee RT 2V 1111 [facility] Other XR [place] 2[place] [address] [facility] Other XR knee RT 2V XRay Report [facility] [employer] Other XR knee RT 2V Signed [employer] Other XR knee RT 2V Patient: Krystle Fink MR#: [id number] [place] [facility] Other XR knee RT 2V 31 [employer] Other XR knee RT 2V : 1950 Acct:[id number] [employer] Other XR knee RT 2V Age/Sex: 72 / F ADM Date: 11/02/22 [employer] Other XR knee RT 2V Loc: [place] Room: Type : [facility] [employer] Other XR knee RT 2V Attending Dr: Jose Najera II, MD [employer] Other XR knee RT 2V Copies to: Jose Najera MD [employer] Other XR knee RT 2V Ordering Provider: Jose Najera MD [employer] Other XR knee RT 2V Date of Service: 11/02/22 [employer] Other XR knee RT 2V XR/XR knee RT 2V: History of total right knee replacement [employer] Other XR knee RT 2V RIGHT KNEE - 2 views N [facility] Other XR knee RT 2V CLINICAL HISTORY: Follow-up right TKA [employer] Other XR knee RT 2V COMPARISON: Right knee 01/18/2022 [employer] Other XR knee RT 2V FINDINGS: [employer] Other XR knee RT 2V No evidence of hardware complication or acute bony process. [employer] Other XR knee RT 2V XR/XR knee RT 2V [employer] Other XR knee RT 2V IMPRESSION: [employer] Other XR knee RT 2V NO EVIDENCE OF HARDWARE COMPLICATION. [employer] Other XR knee RT 2V Impression dictated by: Audie Mondrgaon Jr., D.OEdgard11/02/2022 3:18 PM [employer] Other XR knee RT 2V Dictation Location: [place] [address] [employer] Other XR knee RT 2V Transcribed By: PWS 11/02/22 [facility] [employer] Other XR knee RT 2V Dictated By: Audie Mondragon Jr, DO 11/02/22 [facility] [employer] Other XR knee RT 2V Signed By: [employer] Other XR knee RT 2V 11/02/22 [facility] [employer] Other Vital Signs Date Time Vital Sign Value Performing Clinician Facility 12-13-2023 14:51-0400 Body height 161.29 cm [facility] 12-13-2023 14:51-0400 Body mass index (BMI) [Ratio] 35.4 kg/m2 [facility] 12-13-2023 14:51-0400 Body weight 92.07 kg [facility] 10-15-2023 11:18-0400 Body height 161.29 cm MD Vashti Clark Work Phone: [facility] 10-15-2023 11:18-0400 Body mass index (BMI) [Ratio] 36.6 kg/m2 MD Vashti Clark Work Phone: [facility] 10-15-2023 11:18-0400 Body weight 95.36 kg MD Vashti Clark Work Phone: [facility] 10-15-2023 11:18-0400 Diastolic blood pressure 81 mm[Hg] MD Vashti Clark Work Phone: [facility] 10-15-2023 11:18-0400 Heart rate 77 /min MD Vashti Clark Work Phone: [facility] 10-15-2023 11:18-0400 Systolic blood pressure 142 mm[Hg] MD Vashti Clark Work Phone: [facility] 09-13-2023 11:54-0500 Body height 161.29 cm MD Vashti Clark Work Phone: [facility] 09-13-2023 11:54-0500 Body mass index (BMI) [Ratio] 37.8 kg/m2 MD Vashti Clark Work Phone: [facility] 09-13-2023 11:54-0500 Body temperature 97.6 [degF] MD Vashti Clark Work Phone: [facility] 09-13-2023 11:54-0500 Body weight 98.42 kg MD Vashti Clark Work Phone: [facility] 09-13-2023 11:54-0500 Diastolic blood pressure 82 mm[Hg] MD Vashti Clark Work Phone: [facility] 09-13-2023 11:54-0500 Heart rate 89 /min MD Vashti Clark Work Phone: [facility] 09-13-2023 11:54-0500 Respiratory rate 16 /min MD Vashti Clark Work Phone: [facility] 09-13-2023 11:54-0500 SaO2% (BldA) [Mass fraction] 99 % MD Vashti Clark Work Phone: [facility] 09-13-2023 11:54-0500 Systolic blood pressure 124 mm[Hg] MD Vashti Clark Work Phone: [facility] 08-30-2023 10:41-0500 Body height 161.29 cm [facility] 08-30-2023 10:41-0500 Body mass index (BMI) [Ratio] 37.8 kg/m2 [facility] 08-30-2023 10:41-0500 Body weight 98.42 kg [facility] 08-30-2023 10:41-0500 Diastolic blood pressure 81 mm[Hg] [facility] 08-30-2023 10:41-0500 Heart rate 87 /min [facility] 08-30-2023 10:41-0500 Systolic blood pressure 155 mm[Hg] [facility] 08-23-2023 09:20-0500 Body height 161.29 cm Ny Jin Other [facility] [employer] Other 08-23-2023 09:20-0500 Body mass index (BMI) [Ratio] 37.48 kg/m2 Ny Jin Other [facility] [employer] Other 08-23-2023 09:20-0500 Body weight 97.52 kg Ny Jin Other [employer] [facility] [employer] Other 08-16-2023 10:00-0500 Body height 161.29 cm Vashti Clark Other [facility] 08-16-2023 10:00-0500 Body mass index (BMI) [Ratio] 37.83 kg/m2 Vashti Clark Other [employer] [facility] [employer] Other 08-16-2023 10:00-0500 Body weight 98.43 kg Vashti Clark Other [facility] [employer] Other 08-16-2023 10:00-0500 Body weight 98.42 kg [facility] 08-16-2023 10:00-0500 Diastolic blood pressure 81 mm[Hg] Vashti Clark Other [facility] 08-16-2023 10:00-0500 Systolic blood pressure 147 mm[Hg] Vashti Clark Other [facility] 05-29-2023 11:30-0500 Body height 161.29 cm Vashti Clark Other [facility] [employer] Other 05-29-2023 11:30-0500 Body mass index (BMI) [Ratio] 37.41 kg/m2 Vashti Clark Other [employer] [facility] [employer] Other 05-29-2023 11:30-0500 Body weight 97.34 kg Vashti Clark Other [employer] Other 05-29-2023 11:30-0500 Diastolic blood pressure 85 mm[Hg] Vashti Clark Other [employer] Other 05-29-2023 11:30-0500 Respiratory rate 16 /min Vashti Clark Other [employer] Other 05-29-2023 11:30-0500 Systolic blood pressure 174 mm[Hg] Vashti Clark Other [employer] Other 03-15-2023 08:45-0400 Body height 161.29 cm Jose Rutherford II Other [employer] Other 03-15-2023 08:45-0400 Body mass index (BMI) [Ratio] 38.01 kg/m2 Jose Rutherford II Other [employer] Other 03-15-2023 08:45-0400 Body weight 98.88 kg Jose Rutherford II Other [employer] Other 01-18-2023 11:15-0400 Body height 161.29 cm Vashti Clark Other [employer] Other 01-18-2023 11:15-0400 Body mass index (BMI) [Ratio] 38.01 kg/m2 Vashti Clark Other [employer] Other 01-18-2023 11:15-0400 Body weight 98.88 kg Vashti Clark Other [employer] Other 01-18-2023 11:15-0400 Diastolic blood pressure 81 mm[Hg] Vashti Clark Other [employer] Other 01-18-2023 11:15-0400 Systolic blood pressure 167 mm[Hg] Vashti Clark Other [employer] Other 12-12-2022 13:45-0400 Body height 161.29 cm Vashti Clark Other [employer] Other 12-12-2022 13:45-0400 Body mass index (BMI) [Ratio] 37.48 kg/m2 Vashti Clark Other [employer] Other 12-12-2022 13:45-0400 Body weight 97.52 kg Vashti Clark Other [employer] Other 12-12-2022 13:45-0400 Diastolic blood pressure 59 mm[Hg] Vashti Clark Other [employer] Other 12-12-2022 13:45-0400 Systolic blood pressure 147 mm[Hg] Vashti Clark Other [employer] Other 11-02-2022 15:45-0400 Body height 167.64 cm Jose Reinaldo II Other [employer] Other 12-07-2021 11:45-0400 Body height 167.64 cm Jose Rutherford II Other [employer] Other 12-07-2021 11:45-0400 Body mass index (BMI) [Ratio] 34.7 kg/m2 Jose Rutherford II Other [employer] Other 12-07-2021 11:45-0400 Body weight 97.52 kg Jose Rutherford II Other [employer] Other 11-16-2021 11:45-0400 Body height 167.64 cm Jose Rutherford II Other [employer] Other 11-16-2021 11:45-0400 Body mass index (BMI) [Ratio] 34.7 kg/m2 Jose Rutherford II Other [employer] Other 11-16-2021 11:45-0400 Body weight 97.52 kg Jose Rutherford II Other [employer] Other 10-06-2021 16:00-0400 Body height 167.64 cm Jose Rutherford II Other [employer] Other 10-06-2021 16:00-0400 Body mass index (BMI) [Ratio] 34.7 kg/m2 Jose Rutherford II Other [employer] Other 10-06-2021 16:00-0400 Body weight 97.52 kg Jose Rutherford II Other [employer] Other 09-13-2021 16:15-0500 Body height 167.64 cm Wayne Mccallum Other [employer] Other 09-13-2021 16:15-0500 Body mass index (BMI) [Ratio] 34.7 kg/m2 Wayne Mccallum Other [employer] Other 09-13-2021 16:15-0500 Body weight 97.52 kg Wayne Mccallum Other [employer] Other Encounters Encounter Date Encounter Type Care Provider Facility Start: 12-13-2023 End: 12-13-2023 ambulatory [facility] Work Phone: Start: 12-13-2023 End: 12-13-2023 Patient encounter procedure [facility] Work Phone: Start: 11-19-2023 End: 11-20-2023 ambulatory Marc Nowak MD Facility:[facility] Start: 10-29-2023 End: 10-30-2023 ambulatory Marc Nowak MD Facility:[facility] Start: 10-15-2023 End: 10-15-2023 ambulatory MD Vashti Clark Work Phone: [facility] Work Phone: Start: 10-15-2023 End: 10-15-2023 Patient encounter procedure MD Vashti Clark Work Phone: [facility] Work Phone: Start: 10-04-2023 End: 10-04-2023 ambulatory MD Vashit Clark Work Phone: [facility] Work Phone: Start: 10-04-2023 End: 10-04-2023 Patient encounter procedure MD Vashti Clark Work Phone: [facility] Work Phone: Start: 10-01-2023 End: 10-02-2023 ambulatory Marc Nowak MD Facility:[facility] Start: 09-24-2023 End: 09-25-2023 ambulatory Marc Nowak MD Facility:[facility] Start: 09-13-2023 End: 09-13-2023 ambulatory Willy Yancey Facility:[facility] Start: 09-13-2023 End: 09-13-2023 Patient encounter procedure MD Vashti Clark Work Phone: [facility] Start: 09-13-2023 End: 09-13-2023 Patient encounter procedure MD Vashti Clark Work Phone: [facility] Surgery Work Phone: Start: 08-30-2023 End: 08-30-2023 ambulatory [facility] Work Phone: Start: 08-30-2023 End: 08-30-2023 Patient encounter procedure [facility] Work Phone: Start: 08-27-2023 End: 08-27-2023 ambulatory Ny Jin Other [employer] Other Start: 08-27-2023 Telephone encounter Ny Jin [facility] Start: 08-23-2023 End: 08-23-2023 ambulatory Ny Jin Other [employer] Other Start: 08-23-2023 Office outpatient ne w 45 minutes Ny Jin [facility] Start: 08-16-2023 End: 08-16-2023 ambulatory Vashti Clark Other [employer] Other Start: 08-16-2023 Office outpatient vi sit 15 minutes Vashti Clark [facility] Start: 08-16-2023 Telephone encounter Vashti Clark [facility] Start: 08-16-2023 End: 08-16-2023 Patient encounter procedure [facility]- Start: 08-13-2023 End: 08-13-2023 ambulatory Jsoe Rutherford II Other [employer] Other Start: 08-13-2023 Telephone encounter Jose Rutherford II [facility] Start: 07-03-2023 End: 07-03-2023 ambulatory Vashti Clark Other [employer] Other Start: 07-03-2023 Telephone encounter Vashti Amber [facility] Start: 06-27-2023 Patient encounter procedure [facility]- Start: 06-18-2023 End: 06-18-2023 ambulatory ANABELLA D DOLCE Not Available Start: 06-11-2023 End: 06-11-2023 ambulatory Vashti Clark Other [employer] Other Start: 06-11-2023 Telephone encounter Vashti Amber [facility] Start: 06-01-2023 End: 06-01-2023 ambulatory ANABELLA D DOLCE Not Available Start: 05-29-2023 End: 05-29-2023 ambulatory Vashti Amber Other [employer] Other Start: 05-29-2023 Office outpatient vi sit 15 minutes Vashti Clark [facility] Start: 05-29-2023 Telephone encounter Vashti Amber [facility] Start: 05-14-2023 End: 05-14-2023 ambulatory Jose Rutherford II Other [employer] Other Start: 05-14-2023 Telephone encounter Jose Rutherford II [facility] Start: 04-02-2023 End: 04-02-2023 ambulatory Vahsti Amber Other [employer] Other Start: 04-02-2023 Telephone encounter Vashti Amber [facility] Start: 03-15-2023 End: 03-15-2023 ambulatory Jose Reinaldo II Other [employer] Other Start: 03-15-2023 Office outpatient vi sit 25 minutes Jose Rutherford II [facility] Start: 02-26-2023 End: 02-26-2023 ambulatory Vashti Clark Other [employer] Other Start: 02-26-2023 Telephone encounter Vashti Clark [facility] Start: 02-08-2023 End: 02-08-2023 ambulatory Jose De Andaisle II Other [employer] Other Start: 02-08-2023 Office outpatient vi sit 25 minutes Jose Rutherford II [facility] Start: 01-19-2023 End: 01-19-2023 ambulatory Vashti Clark Other [employer] Other Start: 01-19-2023 Telephone encounter Vashti Clark [facility] Start: 01-18-2023 End: 01-18-2023 ambulatory Vashti Clark Other [employer] Other Start: 01-18-2023 Office outpatient vi sit 15 minutes Vashti Clark [facility] Start: 01-17-2023 End: 01-17-2023 ambulatory Jose Rutherford II Other [employer] Other Start: 01-17-2023 Telephone encounter Jose Peñale II [facility] Start: 12-13-2022 End: 12-13-2022 ambulatory Vashti Clark Other [employer] Other Start: 12-13-2022 Telephone encounter Jose De Andaisle II [facility] Start: 12-12-2022 End: 12-13-[address] VASHTI CLARK Facility: Start: 12-12-2022 Office outpatient vi sit 15 minutes Vashti Clark [facility] Start: 11-02-2022 End: 11-02-2022 ambulatory Jose Tequila Peñale II [employer] Other Start: 11-02-2022 Office outpatient vi sit 25 minutes Jose Rutherford II [facility] Start: 10-10-2022 End: 10-10-2022 ambulatory Jose Rutherford II Other [employer] Other Start: 10-10-2022 Telephone encounter Jose Reinaldo II [facility] Start: 06-23-2022 End: 06-23-2022 ambulatory MD Vashti Clark Work Phone: [facility] Work Phone: Start: 06-23-2022 End: 06-23-2022 Patient encounter procedure MD Vashti Clark Work Phone: [facility] Start: 04-13-2022 End: 04-13-2022 ambulatory Jose Rutherford II Other [employer] Other Start: 04-13-2022 Telephone encounter Jose Reinaldo II [facility] Start: 03-06-2022 End: 03-06-2022 ambulatory Wayne Mccallum Other [employer] Other Start: 03-06-2022 Office outpatient vi sit 15 minutes Wayne Mccallum [facility] [place] Start: 01-18-2022 (Post-Op) Post-Op Jose Rutherford II [facility] Start: 01-18-2022 End: 01-18-2022 ambulatory Jose Rutherford II Other [employer] Other Start: 12-07-2021 (Post-Op) Post-Op Jose Rutherford II [facility] Start: 12-07-2021 End: 12-07-2021 ambulatory Jose Reinaldo II Other [employer] Other Start: 11-21-2021 Pre-procedure evaluation check Jose Rutherford II Other [employer] Other Start: 11-16-2021 End: 11-16-2021 ambulatory Jose Reinaldo II Other [employer] Other Start: 11-16-2021 Office outpatient vi sit 15 minutes Jose Rutherford II [facility] Start: 10-14-2021 (Prolonged) Prolonge d Services Jose Rutherford II [facility] Start: 10-14-2021 End: 10-14-2021 ambulatory Jose Rutherford II Other [employer] Other Start: 10-06-2021 End: 10-06-2021 ambulatory Jose Rutherford II Other [employer] Other Start: 10-06-2021 Office outpatient vi sit 25 minutes Jose De Andaisle II [facility] Start: 09-13-2021 End: 09-13-2021 ambulatory Jose Rutherford II Other [employer] Other Start: 09-13-2021 Office outpatient vi sit 25 minutes Wayne Mccallum [facility] [place] Start: 09-13-2021 Telephone encounter Jose De Andaisle II [facility] Start: 08-09-2021 End: 08-09-2021 ambulatory Wayne Mccallum Other [employer] Other Start: 08-09-2021 Telephone encounter Wayne Mccallum [facility] Start: 07-28-2021 End: 07-28-2021 ambulatory Wayne Mccallum Other [employer] Other Start: 07-28-2021 Office outpatient vi sit 15 minutes Wayne Mccallum [facility] [place] Start: 06-27-2021 Adult health examination Jose De Andaisle II Other [employer] Other Start: 05-12-2021 Office outpatient vi sit 15 minutes Wayne Mccallum [facility] [place] Procedures Date Procedure Procedure Detail Performing Clinician [...] Activity Detail Author Start: 10-15-2023 Patient referral [facility] Work Phone: Patient referral [facility] Work Phone: Immunizations Immunization Date Immunization Notes Care Provider Fa avera [facility] 05-29-2023 influenza virus vaccine, unspecified formulation [facility] 05-29-2023 influenza, high dose seasonal, preservative-free Vashti Clark Other [employer] Other 04-11-2021 COVID-19 mRNA Comirnaty (Pfizer) MD Vashti Clark Work Phone: [facility] 09-07-2020 COVID-19 mRNA Comirnaty (Pfizer) MD Vashti Clark Work Phone: [facility] 08-17-2020 COVID-19 mRNA Comirnatwinter (Pfizer) MD Vashti Clark Work Phone: [facility] 05-24-2020 Kenalog -40 mg Wayne Mccallum Other [employer] Other 03-31-2020 influenza virus vaccine, split virus (incl. purified surface antigen) Jose Najera II Other [place] [facility] Other 03-31-2020 influenza virus vaccine, unspecified formulation [facility] 08-11-2019 Kenalog -40 mg Wayne Felter Other [employer] Other 11-04-2018 Kenalog -40 mg Wayne Felter Other [employer] Other 03-19-2018 Supartz Wayne Felter Other [employer] Other 03-12-2018 Theraputic Injection Wayne Payneer Other [employer] Other 03-05-2018 Supartz Wayne Felter Other [employer] Other 02-26-2018 Supartz Wayne Felter Other [employer] Other 02-19-2018 Supartz Wayne Felter Other [employer] Other 11-27-2017 Kenalog -40 mg Wayne Felter Other [employer] Other 05-31-2016 influenza virus vaccine, split virus (incl. purified surface antigen) Jose Peñale II Other [place] [employer] Other 05-31-2016 influenza virus vaccine, unspecified formulation [facility] 05-31-2016 pneumococcal polysaccharide vaccine, 23 valent Jose Rutherford II Other [facility] Payers Date Payer Category Payer Medicare 2023 Unknown 2022 Self-pay [id number] 1961 Medicare [id number] 2.1 [id number] 1961 Unknown [id number] 2.1 [id number] 1950 Unknown [id number] 2.16.84 [id number] 1950 Unknown [id number] [id number] .[id number] 1950 Unknown [id number] 2.16.840 .[id number] 1950 Unknown [id number] 2.16. [id number] 1950 Unknown [id number] 2.16. [id number] 1950 Unknown [id number] 2.16. [id number] 1950 Unknown [id number] 2.16. [id number] Unknown Karen BC/BS [id number] Unknown [id number] 2.16.8 [id number] Unknown [id number] 2.16.8 [id number] Social History Date Type Detail Facility Unknown if ever smoked [employer] Other Sex Assigned At Sex Assigned At Bir th [employer] Other Start: 10-26-2021 End: 10-26-2021 Tobacco smoking status NHIS Never smoked tobacco (finding) [facility] Start: 1950 Sex Assigned At Female F [facility] Medical Equipment Procedure Code Equipment Code Equipment Origin al Text Equipment Identifier Dates Arthroplasty, knee, total, minimally invasive Orthopaedic cement, non-medicated [id number] FDA Start: 10-24-2021 Arthroplasty, knee, total, minimally invasive Uncoated knee femur prosthesis, metallic [id number] FDA Start: 10-24-2021 Arthroplasty, knee, total, minimally invasive Tibial insert [id number] FDA Start: 10-24-2021 Arthroplasty, knee, total, minimally invasive Polyethylene patella prosthesis ()[id number] FDA Start: 10-24-2021 Arthroplasty, knee, total, minimally invasive Knee stem ()[id number] FDA Start: 10-24-2021 Arthroplasty, knee, total, minimally invasive Uncoated knee tibia prosthesis, metallic ()[id number] FDA Start: 10-24-2021 Clinical Notes 05-12-2021 to [...] Aug, Lower extremity edema (ICD-10 - R60.0) [employer] Other 02-01-2024 Evaluation note* Encounter Date Diagnosis Assessment Notes Treatment Notes Treatment Clinical Notes Aug, Leg edema, right (ICD-10 - R60.0) Check US today, discussed other possibilities but r/o DVT first. [employer] Other 12-19-2023 Evaluation note* Encounter Date Diagnosis Assessment Notes Treatment Notes Treatment Clinical Notes Jun, Lumbar pain (ICD-10 - M54.50) [employer] Other 11-27-2023 Evaluation note* Encounter Date Diagnosis Assessment Notes Treatment Notes Treatment Clinical Notes May, DDD (degenerative disc disease), lumbar (ICD-10 - M51.36) [employer] Other 11-14-2023 Evaluation note* Encounter Date Diagnosis Assessment Notes Treatment Notes Treatment Clinical Notes May, Peripheral polyneuropathy (ICD-10 - G62.9) Requests labs to r/o metabolic causes. May, Lumbar pain (ICD-10 - M54.50) Chronic lumbar pain. Agrees to start w xray. May, Paronychia, toe, lef t (ICD-10 - L03.032) Pt requests antibiotic at end of visit. Keep foot clean and dry. [employer] Other 08-31-2023 Evaluation note* Encounter Date Diagnosis [...] wedding planned the end of August 2023. [employer] Other 07-27-2023 Evaluation note* Encounter Date Diagnosis [...] it is not something that I prescribed. [employer] Other 07-06-2023 Evaluation note* Encounter Date Diagnosis Assessment Notes Treatment Notes Treatment Clinical Notes Jan, Easy bruisability (ICD-10 - R23.3) Pt will get labs today. Discussed possible link w the frequent NSAIDs Jan, Essential (primary) hypertension (ICD-10 - I10) Due for labs. Possible elevated glucose - nonfasting, had steroid pills and injections due to foot issues. She is seeing podiatry for plantar fasciitis. [employer] Other 07-06-2023 Evaluation note* Encounter Date Diagnosis [...] symptoms. Any developing patterns. Stay well hydrated. [employer] Other 05-31-2023 NotePROCEDURE: XR FOOT LT MIN [...] Electronically authenticated by: TIM TORREZ Date: 2022-12-13 08:39[facility]05-30-2023 Evaluation note* Encounter Date Diagnosis Assessment Notes Treatment Notes Treatment Clinical Notes November, Left foot pain (ICD-10 - M79.672) Discussed primary concern of stress fracture. Pt agrees to xray. Reviewed ortho notes. She is to followup there prn. [employer] Other 2023 Evaluation note* Encounter Date Diagnosis Assessment Notes Treatment Notes Treatment Clinical Notes Oct, History of total right knee replacement (ICD-10 - Z96.651) Oct, Primary osteoarthritis of both knees (ICD-10 - M17.0) Oct, Other [facility] at [facility] on 10/24/2021 Happy with surgical result Follow [...] as needed basis for the left knee. [employer] Other 09-29-2022 Evaluation note* Encounter Date Diagnosis Assessment Notes Treatment Notes Treatment Clinical Notes Mar, Primary osteoarthritis of both knees (ICD-10 - M17.0) [employer] Other 08-22-2022 Evaluation note* Encounter Date Diagnosis [...] note writ ten by Richar Kruger LPN, Network Development Coordinator. Edited and approved by Dr. Wayne Mccallum MD. [employer] Other 07-06-2022 Evaluation note* Encounter Date Diagnosis Assessment Notes Treatment Notes Treatment Clinical Notes Jan, Primary osteoarthritis of both knees (ICD-10 - M17.0) Jan, Aftercare following joint replacement surgery (ICD-10 - Z47.1) Jan, History of total right knee replacement (ICD-10 - Z96.651) Jan, Other [facility] at [facility] on 10/24/2021 Doing well Discussed post-op dental prophylaxis. Shared decision made to continue prophylactic antibiotics indefinitely. Follow-up at 1 year post-op for repeat examination and 2 view x-rays of the right knee. Patient instructed to call with any questions or concerns. [employer] Other 05-25-2022 Evaluation note* Encounter Date Diagnosis Assessment Notes Treatment Notes Treatment Clinical Notes November, Primary osteoarthritis of both knees (ICD-10 - M17.0) November, Aftercare following joint replacement surgery (ICD-10 - Z47.1) November, History of total right knee replacement (ICD-10 - Z96.651) November, Other [facility] at [facility] on 10/24/2021 Doing well Patient may continue activities as tolerated. Continue PT as recommended. Continue taking [id number] anti-inflammatori es as needed for assistance with swelling and pain associated with the operative extremity. Follow-up in 6 weeks for repeat examination and long standing x-rays. [employer] Other 05-04-2022 Evaluation note* Encounter Date Diagnosis [...] for 3 views of the right knee. [employer] Other 04-01-2022 Evaluation note* Encounter Date Diagnosis [...] patient could proceed with surgery safely. The brand sales manager was vital for surgery timing and [...] plans. Prolonged services time spent: 37 minutes [employer] Other 04-01-2022 History general Narrative - Reported* Type Description Date Medical History hypertension Surgical History bilateral SANDRO Surgical History abdominal surgery Surgical History RT TKR 10/2021 Hospitalization History see above [employer] Other 04-01-2022 History general Narrative - Reported* Type Description Date Medical History hypertension Surgical History bilateral SANDRO Surgical History abdominal surgery Surgical History RT TKR 10/2021 Surgical History COLONOSCOPY Hospitalization History see above [employer] Other 04-01-2022 History general Narrative - Reported* Type Description Date Medical History hypertension Medical History Frozen shoulder Medical History Lumbar pain Surgical History bilateral SANDRO Surgical History abdominal surgery Surgical History RT TKR 10/2021 Surgical History COLONOSCOPY Hospitalization History see above [employer] Other 03-24-2022 Evaluation note* Encounter Date Diagnosis [...] rehab stay. Joints Meeting Checklist - Pharmacy: [facility] med to bed - Approach/Technique: [...] elected to proceed with the above surgery. [employer] Other 03-01-2022 Evaluation note* Encounter Date Diagnosis [...] note writ ten by Richar Kruger LPN, Network Development Coordinator. Edited and approved by Dr. Wayne Mccallum MD. [employer] Other 03-01-2022 Evaluation note* Encounter Date Diagnosis Assessment Notes Treatment Notes Treatment Clinical Notes Sep, Primary osteoarthritis of both knees (ICD-10 - M17.0) [employer] Other 01-25-2022 Evaluation note* Encounter Date Diagnosis Assessment Notes Treatment Notes Treatment Clinical Notes Jul, Primary osteoarthritis of both knees (ICD-10 - M17.0) [employer] Other 01-13-2022 Evaluation note* Encounter Date Diagnosis [...] note writ ten by Richar Kruger LPN, Network Development Coordinator. Edited and approved by Dr. Wayne Mccallum MD. [employer] Other 10-28-2021 Evaluation note* Encounter Date Diagnosis [...] note writ ten by Nissa Murillo CMA, Network Development Coordinator. Edited and approved by Dr. Wayne Mccallum MD. [employer] Other Evaluation noteNo assessment information available [facility] Work Phone: Evaluation noteNo InformationNortOSS Health [employer] Other Evaluation note* Diagnosis Onset Date Resolution Status Right femoral vein DVT acute [facility] Work Phone: Evaluation note* Diagnosis Onset Date Resolution Status Essential (primary) hypertension acute Knee arthropathy acute Right femoral vein DVT acute PAD (peripheral artery disease) acute Primary osteoarthritis of left knee acute [facility] Work Phone: Evaluation note* Diagnosis Onset Date Resolution Status Essential (primary) hypertension acute Knee arthropathy acute Right femoral vein DVT acute PAD (peripheral artery disease) acute Primary osteoarthritis of left knee acute PAD (peripheral artery disease) acute Venous ulcer of left leg acu te [facility] Work Phone: Evaluation note* Diagnosis Onset Date Resolution Status Primary osteoarthritis of left knee acute PAD (peripheral artery disease) acute Venous ulcer of left leg acu te Primary osteoarthritis of left knee acute [facility] Work Phone: History general Narrative - Reported* Type Description Date Medical History hypertension Surgical History bilateral SANDRO Surgical History abdominal surgery [facility] [employer] Other Hospital Discharge instructionsAmbulatory Orders* Referral to Wound Care Time Frame: 10/15/23, Location: None Selected [facility] Work Phone: Family History Relationship Condition [...] Diagnosis 1 Lumbar pain (M54.50) Referral Organization [facility] Referring Provider First Name Ny Referring Provider Last Name Jin Referring Provider Specialty Nurse Pract itioner Referred Organization [facility] [place] Referred Provider Wayne Mccallum Referred Address [address] [place],[address] Referred Provider Specialty Pain Medicin e Referral Priority Routine General Notes Eryn Reynoso 02:02:11 PM >received today, patient previously seen by Dr Mccallum (last visit Feb 2022) and is still considered established. sending p2p at this time for scheduling. Reason evaluate and t reat for peripheral vascular disease Diagnosis 1 Peripheral vascular disease (I73.9) Referral Organization [facility] Referring Provider First Name Ny Referring Provider Last Name Annabel Referring Provider Specialty Nurse Pract itioner Referred Organization [facility] Vascular Surge ry Referred Provider Willy Yancey Referred Address [address],[place], [place],[address] Referred Provider Specialty Vascular Samantha piotr Referral Priority Routine General Notes Eryn Reynoso 02:08:33 PM >received today, p2p sent for scheduling Reason *Waiting for appt chronic lumbar - recent MRI Diagnosis 1 Lumbar pain (M54.50) Referral Organization [facility] Referring Provider First Name Vashti Referring Provider Last Name Amber Referring Provider Specialty Family Medi cine Referred Organization [facility] Referred Provider Jose Clark Referred Address [address] ,[place], [place],[address] Referred Provider Specialty Neurological Surgery Referral Priority [...] InformationNo InformationH & P RIGHT TOTAL KNEE [id number] WK WOUND CHECKRecheck Right Knee6 WK RECHECKLT [...] 04, 2023 End: October 04, 2023 Jose aNjera II, MD Active Sta rt: October 04, [...] and content) DATE CREATED AUTHOR 12/22/2022 [facility] p[facility] DATE CREATED AUTHOR AUTHOR'S ORGANIZ ATION 06/20/2023 [facility] DATE CREATED AUTHOR AUTHOR'S ORGANIZ ATION 09/16/2023 [facility] DATE CREATED AUTHOR AUTHOR'S ORGANIZ ATION 11/25/2023 [facility] FOR RECORDS PERTAINING TO PATIENTS WHO ARE [...] BE BASED ON THE PRIMARY CLINICAL RECORDS. [employer] provides no warranty or guarantee of the accuracy or completeness of information in this document.
== END 2024-02-18 09:13 | disposition home or self-care (01) ==
LOC: EC 09:12
PROVIDERS: PCP Family Medicine; Visit Provider Orthopaedic Surgery
DX: S82.142D Displaced bicondylar fracture of left tibia, subsequent encounter for closed fracture with routine healing (principal)
CPT/HCPCS: 73560

== ENCOUNTER 2024-03-24 09:48 | Outpatient (OUT) | payer MEDICARE, SELFPAY ==
--- NOTE | 2024-03-24 | XR_ITS ---
[place] [id number] Patient Name: LINDA BARBOSA MRN: [id number] date: 1950 Sex: F Assigned Patient Location: Current Patient Location: Accession/Order Number: [id number] Exam Date: 03/24/2024 09:50 Report Date: 03/25/2024 18:14 At the request of: TIM MAYORGA Procedure: XR knee LT 2V EXAM: XR knee LT 2V HISTORY: LEFT KNEE PAIN COMPARISON: 02/18/2024 FINDINGS/IMPRESSION: 1. Healing comminuted fracture of the lateral tibial plateau. There is unchanged depression of the lateral tibial plateau measuring approximately 6 mm. 2. Moderate degeneration at the patellofemoral compartment. 3. No knee joint effusion. Electronically authenticated by: RYLIE CASTILLO Date: 03/25/2024 18:14
--- OUTSIDE RECORDS SUMMARY | 2024-03-24 09:56 | XMS_ITS | CCD ---
Author Organization [facility] [employer]ini[employer] Care Team Providers Care Fixed Route Bus Operator Name Role Phone Wayne Mccallum Unavailable Jose Najera II Unavailable MD Vashti Clark Primary Care Provider MD Jose Najera II Attending Provider [phone] DR VASHTI CLARK Attending Unavailable AMBER, DR [...] physicia Propensity to adverse reactions 5 Comment:Done [employer] Other (6 sources) Allergies Reconciled Propensity to adverse reactions Unknown [employer] Other Medications Current Medications Medication Drug Class(es) [...] 12:00am docusate sodium 50 mg / sennosides, prison 8.6 mg oral tablet (3 sources) Start: [...] Start: 10-06-2021 take 1 capsule by mo [facility] every twelve hours Cefadroxil 500 MG [...] DISCHARGE DOS:10/24/2021 Sep, Active polyethylene glycol 3350 81929 mg powder for oral solution (8 sources) [...] ity US ankle/arm indiceson US ankle/arm indices [place] [address] Ultrasound Report Signed Patient: Kami Fink MR#: [id number] [birth year] : 1950 Acct:[id number] Age/Sex: 73 / F ADM Date: 09/13/23 Loc: [facility] Room: Type: [facility] Attending Dr: Willy Yancey MD Ordering Provider: [...] Willy Yancey MD09/13/2023 2:37 PM Dictation Location: [place] [address] Tech: Marquita Carlos Transcribed By: DALILA 09/13/23 1437 Dictated By: Willy Yancey MD 09/13/23 1435 Signed By: 09/13/23 1437 Normal [facility] XR knee RT 2Von 11-02-2022 XR knee RT 2V [facility] Main [place] [address] [place] [address] XRay Report Signed Patient: Kami Fink MR#: [id number] [birth year] : 1950 Acct:[id number] Age/Sex: 72 / F ADM Date: 11/02/22 Loc: [facility] Room: Type: [facility] Attending Dr: Jose Najera II, MD Copies [...] Mondragon Jr., D.OEdgard11/02/2022 3:18 PM Dictation Location: [place] [address] Transcribed By: DALILA 11/02/22 1518 Dictated By: Audie Mondragon Jr, DO 11/02/22 1517 Signed By: 11/02/22 1518 Normal [facility] XR knee RT 2V [facility] [employer] Other XR knee RT 2V [facility] [place] [facility] [employer] Other XR knee RT 2V 1111 [facility] [employer] Other XR [place] 2[place] [address] [facility] [employer] Other XR knee RT 2V XRay Report [facility] [employer] Other XR knee RT 2V Signed [employer] Other XR knee RT 2V Patient: Krystle Fink MR#: [id number] [employer] Other XR knee RT 2V 31 [employer] Other XR knee RT 2V : 1950 Acct:[id number] [employer] Other XR knee RT 2V Age/Sex: 72 / F ADM Date: 11/02/22 [employer] Other XR knee RT 2V Loc: [place] Room: Type : [facility] [employer] Other XR knee RT 2V Attending Dr: Jose Najera II, MD [employer] Other XR knee RT 2V Copies to: Jose Najera MD [employer] Other XR knee RT 2V Ordering Provider: Jose Najera MD [employer] Other XR knee RT 2V Date of Service: 11/02/22 [employer] Other XR knee RT 2V XR/XR knee RT 2V: History of total right knee replacement [employer] Other XR knee RT 2V RIGHT KNEE - 2 views N [facility] [employer] Other XR knee RT 2V CLINICAL HISTORY: Follow-up right TKA [employer] Other XR knee RT 2V COMPARISON: Right knee 01/18/2022 [employer] Other XR knee RT 2V FINDINGS: [employer] Other XR knee RT 2V No evidence of hardware complication or acute bony process. [employer] Other XR knee RT 2V XR/XR knee RT 2V [employer] Other XR knee RT 2V IMPRESSION: [employer] Other XR knee RT 2V NO EVIDENCE OF HARDWARE COMPLICATION. [employer] Other XR knee RT 2V Impression dictated by: Audie Mondragon Jr., D.OEdgard11/02/2022 3:18 PM [employer] Other XR knee RT 2V Dictation Location: [place] [address] [employer] Other XR knee RT 2V Transcribed By: PWS 11/02/22 [facility] [employer] Other XR knee RT 2V Dictated By: Audie Mondragon Jr, DO 11/02/22 [facility] [employer] Other XR knee RT 2V Signed By: [employer] Other XR knee RT 2V 11/02/22 [facility] [email or web address] Other Vital Signs Date Time Vital Sign Value Performing Clinician Facility 12-13-2023 14:51-0400 Body height 161.29 cm [facility] 12-13-2023 14:51-0400 Body mass index (BMI) [Ratio] 35.4 kg/m2 [facility] 12-13-2023 14:51-0400 Body weight 92.07 kg [facility] 10-15-2023 11:18-0400 Body height 161.29 cm MD Vashti Clark Work Phone: [facility] 10-15-2023 11:18-0400 Body mass index (BMI) [Ratio] 36.6 kg/m2 MD Vashti Clark Work Phone: [facility] 10-15-2023 11:18-0400 Body weight 95.36 kg MD Vashti Clark Work Phone: [facility] 10-15-2023 11:18-0400 Diastolic blood pressure 81 mm[Hg] MD Vashti Clark Work Phone: [facility] 10-15-2023 11:18-0400 Heart rate 77 /min MD Vashti Clark Work Phone: [facility] 10-15-2023 11:18-0400 Systolic blood pressure 142 mm[Hg] MD Vashti Clark Work Phone: [facility] 09-13-2023 11:54-0500 Body height 161.29 cm MD Vashti Clark Work Phone: [facility] 09-13-2023 11:54-0500 Body mass index (BMI) [Ratio] 37.8 kg/m2 MD Vashti Clark Work Phone: [facility] 09-13-2023 11:54-0500 Body temperature 97.6 [degF] MD Vashti Clark Work Phone: [facility] 09-13-2023 11:54-0500 Body weight 98.42 kg MD Vashti Clark Work Phone: [facility] 09-13-2023 11:54-0500 Diastolic blood pressure 82 mm[Hg] MD Vashti Clark Work Phone: [facility] 09-13-2023 11:54-0500 Heart rate 89 /min MD Vashti Clark Work Phone: [facility] 09-13-2023 11:54-0500 Respiratory rate 16 /min MD Vashti Clark Work Phone: [facility] 09-13-2023 11:54-0500 SaO2% (BldA) [Mass fraction] 99 % MD Vashti Clark Work Phone: [facility] 09-13-2023 11:54-0500 Systolic blood pressure 124 mm[Hg] MD Vashti Clark Work Phone: [facility] 08-30-2023 10:41-0500 Body height 161.29 cm [facility] 08-30-2023 10:41-0500 Body mass index (BMI) [Ratio] 37.8 kg/m2 [facility] 08-30-2023 10:41-0500 Body weight 98.42 kg [facility] 08-30-2023 10:41-0500 Diastolic blood pressure 81 mm[Hg] [facility] 08-30-2023 10:41-0500 Heart rate 87 /min [facility] 08-30-2023 10:41-0500 Systolic blood pressure 155 mm[Hg] [facility] 08-23-2023 09:20-0500 Body height 161.29 cm Ny Jin Other [facility] [employer] Other 08-23-2023 09:20-0500 Body mass index (BMI) [Ratio] 37.48 kg/m2 Ny Jin Other [facility] [employer] Other 08-23-2023 09:20-0500 Body weight 97.52 kg Ny Jin Other [employer] [facility] Other 08-16-2023 10:00-0500 Body height 161.29 cm Vashti Clark Other [facility] 08-16-2023 10:00-0500 Body mass index (BMI) [Ratio] 37.83 kg/m2 Vashti Clark Other [employer] [facility] Other 08-16-2023 10:00-0500 Body weight 98.43 kg Vashti Clark Other [facility] [employer] Other 08-16-2023 10:00-0500 Body weight 98.42 kg [facility] 08-16-2023 10:00-0500 Diastolic blood pressure 81 mm[Hg] Vashti Clark Other [facility] 08-16-2023 10:00-0500 Systolic blood pressure 147 mm[Hg] Vashti Clark Other [facility] 05-29-2023 11:30-0500 Body height 161.29 cm Vashti Clark Other [facility] [employer] Other 05-29-2023 11:30-0500 Body mass index (BMI) [Ratio] 37.41 kg/m2 Vashti Clark Other [employer] [facility] Other 05-29-2023 11:30-0500 Body weight 97.34 kg Vashti Clark Other [employer] Other 05-29-2023 11:30-0500 Diastolic blood pressure 85 mm[Hg] Vashti Clark Other [employer] Other 05-29-2023 11:30-0500 Respiratory rate 16 /min Vashti Clark Other [employer] Other 05-29-2023 11:30-0500 Systolic blood pressure 174 mm[Hg] Vashti Clark Other [employer] Other 03-15-2023 08:45-0400 Body height 161.29 cm Jose Anoka II Other [employer] Other 03-15-2023 08:45-0400 Body mass index (BMI) [Ratio] 38.01 kg/m2 Jose Anoka II Other [employer] Other 03-15-2023 08:45-0400 Body weight 98.88 kg Jose Anoka II Other [employer] Other 01-18-2023 11:15-0400 Body height 161.29 cm Vashti Clark Other [employer] Other 01-18-2023 11:15-0400 Body mass index (BMI) [Ratio] 38.01 kg/m2 Vashti Clark Other [employer] Other 01-18-2023 11:15-0400 Body weight 98.88 kg Vashti Clark Other [employer] Other 01-18-2023 11:15-0400 Diastolic blood pressure 81 mm[Hg] Vashti Clark Other [employer] Other 01-18-2023 11:15-0400 Systolic blood pressure 167 mm[Hg] Vashti Clark Other [employer] Other 12-12-2022 13:45-0400 Body height 161.29 cm Vashti Clark Other [employer] Other 12-12-2022 13:45-0400 Body mass index (BMI) [Ratio] 37.48 kg/m2 Vashti Clark Other [employer] Other 12-12-2022 13:45-0400 Body weight 97.52 kg Vashti Clark Other [employer] Other 12-12-2022 13:45-0400 Diastolic blood pressure 59 mm[Hg] Vashti Clark Other [employer] Other 12-12-2022 13:45-0400 Systolic blood pressure 147 mm[Hg] Vashti Clark Other [employer] Other 11-02-2022 15:45-0400 Body height 167.64 cm Jose Anoka II Other [employer] Other 12-07-2021 11:45-0400 Body height 167.64 cm Jose Reinaldo II Other [employer] Other 12-07-2021 11:45-0400 Body mass index (BMI) [Ratio] 34.7 kg/m2 Jose Anoka II Other [employer] Other 12-07-2021 11:45-0400 Body weight 97.52 kg Jose Anoka II Other [employer] Other 11-16-2021 11:45-0400 Body height 167.64 cm Jose Anoka II Other [employer] Other 11-16-2021 11:45-0400 Body mass index (BMI) [Ratio] 34.7 kg/m2 Jose Anoka II Other [employer] Other 11-16-2021 11:45-0400 Body weight 97.52 kg Jose Reinaldo II Other [employer] Other 10-06-2021 16:00-0400 Body height 167.64 cm Jose Anoka II Other [employer] Other 10-06-2021 16:00-0400 Body mass index (BMI) [Ratio] 34.7 kg/m2 Jose Reinaldo II Other [employer] Other 10-06-2021 16:00-0400 Body weight 97.52 kg Jose Reinaldo II Other [employer] Other 09-13-2021 16:15-0500 Body height 167.64 cm Wayne Mccallum Other [employer] Other 09-13-2021 16:15-0500 Body mass index (BMI) [Ratio] 34.7 kg/m2 Wayne Mccallum Other [employer] Other 09-13-2021 16:15-0500 Body weight 97.52 kg Wayne Mccallum Other [employer] Other Encounters Encounter Date Encounter Type Care Provider Facility Start: 12-13-2023 End: 12-13-2023 ambulatory [facility] Work Phone: Start: 12-13-2023 End: 12-13-2023 Patient encounter procedure [facility] Work Phone: Start: 11-19-2023 End: 11-20-2023 ambulatory Marc Nowak MD Facility:[facility] Start: 10-29-2023 End: 10-30-2023 ambulatory Marc Nowak MD Facility:[facility] Start: 10-15-2023 End: 10-15-2023 ambulatory MD Vashti Clark Work Phone: [facility] Work Phone: Start: 10-15-2023 End: 10-15-2023 Patient encounter procedure MD Vashti Clark Work Phone: [facility] Work Phone: Start: 10-04-2023 End: 10-04-2023 ambulatory MD Vashti Clark Work Phone: [facility] Work Phone: Start: 10-04-2023 End: 10-04-2023 Patient encounter procedure MD Vashti Clark Work Phone: [facility] Work Phone: Start: 10-01-2023 End: 10-02-2023 ambulatory Marc Nowak MD Facility:[facility] Start: 09-24-2023 End: 09-25-2023 ambulatory Marc Nowak MD Facility:[facility] Start: 09-13-2023 End: 09-13-2023 ambulatory Willy Yancey Facility:[facility] Start: 09-13-2023 End: 09-13-2023 Patient encounter procedure MD Vashti Clark Work Phone: [facility] Start: 09-13-2023 End: 09-13-2023 Patient encounter procedure MD Vashti Clark Work Phone: [facility] Vascular Surgery Work Phone: Start: 08-30-2023 End: 08-30-2023 ambulatory [facility] Work Phone: Start: 08-30-2023 End: 08-30-2023 Patient encounter procedure [facility] Work Phone: Start: 08-27-2023 End: 08-27-2023 ambulatory Ny Jin Other [employer] Other Start: 08-27-2023 Telephone encounter Ny Jin [employer] Start: 08-23-2023 End: 08-23-2023 ambulatory Ny Jin Other [employer] Other Start: 08-23-2023 Office outpatient ne w 45 minutes Ny Jin [facility] Start: 08-16-2023 End: 08-16-2023 ambulatory Vashti Clark Other [employer] Other Start: 08-16-2023 Office outpatient vi sit 15 minutes Vashti Clark [facility] Start: 08-16-2023 Telephone encounter Vashti Clark [facility] Start: 08-16-2023 End: 08-16-2023 Patient encounter procedure [facility]- Start: 08-13-2023 End: 08-13-2023 ambulatory Jose Anoka II Other [employer] Other Start: 08-13-2023 Telephone encounter Jose Anoka II [facility] Start: 07-03-2023 End: 07-03-2023 ambulatory Vashti Clark Other [employer] Other Start: 07-03-2023 Telephone encounter Vashti Amber [facility] Start: 06-27-2023 Patient encounter procedure [facility]- Start: 06-18-2023 End: 06-18-2023 ambulatory ANABELLA D DOLCE Not Available Start: 06-11-2023 End: 06-11-2023 ambulatory Vashti Clark Other [employer] Other Start: 06-11-2023 Telephone encounter Vashti Amber [facility] Start: 06-01-2023 End: 06-01-2023 ambulatory ANABELLA D DOLCE Not Available Start: 05-29-2023 End: 05-29-2023 ambulatory Vashti Amber Other [employer] Other Start: 05-29-2023 Office outpatient vi sit 15 minutes Vashti Clark [facility] Start: 05-29-2023 Telephone encounter Vashti Amber [facility] Start: 05-14-2023 End: 05-14-2023 ambulatory Jose Anoka II Other [employer] Other Start: 05-14-2023 Telephone encounter Jose Anoka II [facility] Start: 04-02-2023 End: 04-02-2023 ambulatory Vashti Amber Other [employer] Other Start: 04-02-2023 Telephone encounter Vashti Amber [facility] Start: 03-15-2023 End: 03-15-2023 ambulatory Jose Anoka II Other [employer] Other Start: 03-15-2023 Office outpatient vi sit 25 minutes Jose Anoka II [facility] Start: 02-26-2023 End: 02-26-2023 ambulatory Vashti Clark Other [employer] Other Start: 02-26-2023 Telephone encounter Vashti Clark [facility] Start: 02-08-2023 End: 02-08-2023 ambulatory Jose De Andaisle II Other [employer] Other Start: 02-08-2023 Office outpatient vi sit 25 minutes Jose Reinaldo II [facility] Start: 01-19-2023 End: 01-19-2023 ambulatory Vashti Clark Other [employer] Other Start: 01-19-2023 Telephone encounter Vashti Clark [facility] Start: 01-18-2023 End: 01-18-2023 ambulatory Vashti Clark Other [employer] Other Start: 01-18-2023 Office outpatient vi sit 15 minutes Vashti Clark [facility] Start: 01-17-2023 End: 01-17-2023 ambulatory Jose Anoka II Other [employer] Other Start: 01-17-2023 Telephone encounter Jose Peñale II [facility] Start: 12-13-2022 End: 12-13-2022 ambulatory Vashti Clark Other [employer] Other Start: 12-13-2022 Telephone encounter Jose De Andaisle II [facility] Start: 12-12-2022 End: 12-13-[address] VASHTI CLARK Facility: Start: 12-12-2022 Office outpatient vi sit 15 minutes Vashti Clark [facility] Start: 11-02-2022 End: 11-02-2022 ambulatory Jose Tequila Peñale II [employer] Other Start: 11-02-2022 Office outpatient vi sit 25 minutes Jose Anoka II [facility] Start: 10-10-2022 End: 10-10-2022 ambulatory Jose Anoka II Other [employer] Other Start: 10-10-2022 Telephone encounter Jose Reinaldo II [facility] Start: 06-23-2022 End: 06-23-2022 ambulatory MD Vashti Clark Work Phone: [facility] Work Phone: Start: 06-23-2022 End: 06-23-2022 Patient encounter procedure MD Vashti Clark Work Phone: [facility] Start: 04-13-2022 End: 04-13-2022 ambulatory Jose Anoka II Other [employer] Other Start: 04-13-2022 Telephone encounter Jose Anoka II [facility] Start: 03-06-2022 End: 03-06-2022 ambulatory Wayne Mccallum Other [employer] Other Start: 03-06-2022 Office outpatient vi sit 15 minutes Wayne Mccallum [facility] [place] Start: 01-18-2022 (Post-Op) Post-Op Jose Anoka II [facility] Start: 01-18-2022 End: 01-18-2022 ambulatory Jose Reinaldo II Other [employer] Other Start: 12-07-2021 (Post-Op) Post-Op Jose Anoka II [facility] Start: 12-07-2021 End: 12-07-2021 ambulatory Jose Reinaldo II Other [employer] Other Start: 11-21-2021 Pre-procedure evaluation check Jose Anoka II Other [employer] Other Start: 11-16-2021 End: 11-16-2021 ambulatory Jose Reinaldo II Other [employer] Other Start: 11-16-2021 Office outpatient vi sit 15 minutes Jose Anoka II [facility] Start: 10-14-2021 (Prolonged) Prolonge d Services Jose Reinaldo II [facility] Start: 10-14-2021 End: 10-14-2021 ambulatory Jose Anoka II Other [employer] Other Start: 10-06-2021 End: 10-06-2021 ambulatory Jose Reinaldo II Other [employer] Other Start: 10-06-2021 Office outpatient vi sit 25 minutes Jose De Andaisle II [facility] Start: 09-13-2021 End: 09-13-2021 ambulatory Jose Anoka II Other [employer] Other Start: 09-13-2021 Office outpatient vi sit 25 minutes Wayne Mccallum [facility] [place] Start: 09-13-2021 Telephone encounter Jose De Andaisle II [facility] Start: 08-09-2021 End: 08-09-2021 ambulatory Wayne Mccallum Other [employer] Other Start: 08-09-2021 Telephone encounter Wayne Mccallum [facility] Start: 07-28-2021 End: 07-28-2021 ambulatory Wayne Mccallum Other [employer] Other Start: 07-28-2021 Office outpatient vi sit 15 minutes Wayne Mccallum [facility] Start: 06-27-2021 Adult health examination Jose De Andaisle II Other [employer] Other Start: 05-12-2021 Office outpatient vi sit 15 minutes Wayne Mccallum [facility] Procedures Date Procedure Procedure Detail Performing Clinician [...] Activity Detail Author Start: 10-15-2023 Patient referral [facility] Work Phone: Patient referral [facility] Work Phone: Immunizations Immunization Date Immunization Notes Care Provider [facility] 05-29-2023 influenza virus vaccine, unspecified formulation [facility] 05-29-2023 influenza, high dose seasonal, preservative-free Vashti Clark Other [employer] Other 04-11-2021 COVID-19 mRNA Comirnaty (Pfizer) MD Vashti Clark Work Phone: [facility] 09-07-2020 COVID-19 mRNA Comirnaty (Pfizer) MD Vashti Clark Work Phone: [facility] 08-17-2020 COVID-19 mRNA Comirnatwinter (Pfizer) MD Vashti Clark Work Phone: [facility] 05-24-2020 Kenalog -40 mg Wayne Mccallum Other [employer] Other 03-31-2020 influenza virus vaccine, split virus (incl. purified surface antigen) Jose Najera II Other [employer] Other 03-31-2020 influenza virus vaccine, unspecified formulation [facility] 08-11-2019 Kenalog -40 mg Wayne Felter Other [employer] Other 11-04-2018 Kenalog -40 mg Wayne Felter Other [employer] Other 03-19-2018 Supartz Wayne Felter Other [employer] Other 03-12-2018 Theraputic Injection Wayne Payneer Other [employer] Other 03-05-2018 Supartz Wayne Felter Other [employer] Other 02-26-2018 Supartz Wayne Felter Other [employer] Other 02-19-2018 Supartz Wayne Felter Other [employer] Other 11-27-2017 Kenalog -40 mg Wayne Felter Other [employer] Other 05-31-2016 influenza virus vaccine, split virus (incl. purified surface antigen) Jose Peñale II Other [employer] Other 05-31-2016 influenza virus vaccine, unspecified formulation [facility] 05-31-2016 pneumococcal polysaccharide vaccine, 23 valent Jose Anoka II Other [facility] Payers Date Payer Category Payer Medicare 2023 Unknown 2022 Self-pay [id number] 1961 Medicare [id number] 2.1 [id number] 1961 Unknown [id number] 2.1 [id number] 1950 Unknown [id number] 2.16.84 [id number] 1950 Unknown [id number] 2.16.840 .[id number] 1950 Unknown [id number] 2.16.840 .[id number] 1950 Unknown [id number] 2.16. [id number] 1950 Unknown [id number] 2.16. [id number] 1950 Unknown [id number] 2.16. [id number] 1950 Unknown [id number] 2.16. [id number] Unknown Karen BC/BS [id number] Unknown [id number] 2.16.8 [id number] Unknown [id number] 2.16.8 [id number] Social History Date Type Detail Facility Unknown if ever smoked [employer] Other Sex Assigned At Sex Assigned At Bir th [employer] Other Start: 10-26-2021 End: 10-26-2021 Tobacco smoking status NHIS Never smoked tobacco (finding) [facility] Start: 1950 Sex Assigned At Female F [facility] Medical Equipment Procedure Code Equipment Code Equipment Origin al Text Equipment Identifier Dates Arthroplasty, knee, total, minimally invasive Orthopaedic cement, non-medicated [id number] FDA Start: 10-24-2021 Arthroplasty, knee, total, minimally invasive Uncoated knee femur prosthesis, metallic [id number] FDA Start: 10-24-2021 Arthroplasty, knee, total, minimally invasive Tibial insert [id number] FDA Start: 10-24-2021 Arthroplasty, knee, total, minimally invasive Polyethylene patella prosthesis ()[id number] FDA Start: 10-24-2021 Arthroplasty, knee, total, minimally invasive Knee stem ()[id number] FDA Start: 10-24-2021 Arthroplasty, knee, total, minimally invasive Uncoated knee tibia prosthesis, metallic ()[id number] FDA Start: 10-24-2021 Clinical Notes 05-12-2021 to [...] Aug, Lower extremity edema (ICD-10 - R60.0) [employer] Other 02-01-2024 Evaluation note* Encounter Date Diagnosis Assessment Notes Treatment Notes Treatment Clinical Notes Aug, Leg edema, right (ICD-10 - R60.0) Check US today, discussed other possibilities but r/o DVT first. [employer] Other 12-19-2023 Evaluation note* Encounter Date Diagnosis Assessment Notes Treatment Notes Treatment Clinical Notes Jun, Lumbar pain (ICD-10 - M54.50) [employer] Other 11-27-2023 Evaluation note* Encounter Date Diagnosis Assessment Notes Treatment Notes Treatment Clinical Notes May, DDD (degenerative disc disease), lumbar (ICD-10 - M51.36) [employer] Other 11-14-2023 Evaluation note* Encounter Date Diagnosis Assessment Notes Treatment Notes Treatment Clinical Notes May, Peripheral polyneuropathy (ICD-10 - G62.9) Requests labs to r/o metabolic causes. May, Lumbar pain (ICD-10 - M54.50) Chronic lumbar pain. Agrees to start w xray. May, Paronychia, toe, lef t (ICD-10 - L03.032) Pt requests antibiotic at end of visit. Keep foot clean and dry. [employer] Other 08-31-2023 Evaluation note* Encounter Date Diagnosis [...] wedding planned the end of August 2023. [employer] Other 07-27-2023 Evaluation note* Encounter Date Diagnosis [...] it is not something that I prescribed. [employer] Other 07-06-2023 Evaluation note* Encounter Date Diagnosis Assessment Notes Treatment Notes Treatment Clinical Notes Jan, Easy bruisability (ICD-10 - R23.3) Pt will get labs today. Discussed possible link w the frequent NSAIDs Jan, Essential (primary) hypertension (ICD-10 - I10) Due for labs. Possible elevated glucose - nonfasting, had steroid pills and injections due to foot issues. She is seeing podiatry for plantar fasciitis. [employer] Other 07-06-2023 Evaluation note* Encounter Date Diagnosis [...] symptoms. Any developing patterns. Stay well hydrated. [employer] Other 05-31-2023 NotePROCEDURE: XR FOOT LT MIN [...] Electronically authenticated by: TIM TORREZ Date: 2022-12-13 08:39[facility]05-30-2023 Evaluation note* Encounter Date Diagnosis Assessment Notes Treatment Notes Treatment Clinical Notes November, Left foot pain (ICD-10 - M79.672) Discussed primary concern of stress fracture. Pt agrees to xray. Reviewed ortho notes. She is to followup there prn. [employer] Other 2023 Evaluation note* Encounter Date Diagnosis Assessment Notes Treatment Notes Treatment Clinical Notes Oct, History of total right knee replacement (ICD-10 - Z96.651) Oct, Primary osteoarthritis of both knees (ICD-10 - M17.0) Oct, Other [facility]KA at [facility] on 10/24/2021 Happy with surgical result [...] as needed basis for the left knee. [employer] Other 09-29-2022 Evaluation note* Encounter Date Diagnosis Assessment Notes Treatment Notes Treatment Clinical Notes Mar, Primary osteoarthritis of both knees (ICD-10 - M17.0) [employer] Other 08-22-2022 Evaluation note* Encounter Date Diagnosis [...] note writ ten by Richar Kruger LPN, Waiter/Waitress Bar. Edited and approved by Dr. Wayne Mccallum MD. [employer] Other 07-06-2022 Evaluation note* Encounter Date Diagnosis Assessment Notes Treatment Notes Treatment Clinical Notes Jan, Primary osteoarthritis of both knees (ICD-10 - M17.0) Jan, Aftercare following joint replacement surgery (ICD-10 - Z47.1) Jan, History of total right knee replacement (ICD-10 - Z96.651) Jan, Other [facility] at [facility] on 10/24/2021 Doing well Discussed post-op dental prophylaxis. Shared decision made to continue prophylactic antibiotics indefinitely. Follow-up at 1 year post-op for repeat examination and 2 view x-rays of the right knee. Patient instructed to call with any questions or concerns. [employer] Other 05-25-2022 Evaluation note* Encounter Date Diagnosis Assessment Notes Treatment Notes Treatment Clinical Notes November, Primary osteoarthritis of both knees (ICD-10 - M17.0) November, Aftercare following joint replacement surgery (ICD-10 - Z47.1) November, History of total right knee replacement (ICD-10 - Z96.651) November, Other [facility] at [facility] on 10/24/2021 Doing well Patient may continue activities as tolerated. Continue PT as recommended. Continue taking [id number] anti-inflammatori es as needed for assistance with swelling and pain associated with the operative extremity. Follow-up in 6 weeks for repeat examination and long standing x-rays. [employer] Other 05-04-2022 Evaluation note* Encounter Date Diagnosis [...] for 3 views of the right knee. [employer] Other 04-01-2022 Evaluation note* Encounter Date Diagnosis [...] patient could proceed with surgery safely. The account manager trainee was vital for surgery timing and scheduling [...] plans. Prolonged services time spent: 37 minutes [employer] Other 04-01-2022 History general Narrative - Reported* Type Description Date Medical History hypertension Surgical History bilateral SANDRO Surgical History abdominal surgery Surgical History RT TKR 10/2021 Hospitalization History see above [employer] Other 04-01-2022 History general Narrative - Reported* Type Description Date Medical History hypertension Surgical History bilateral SANDRO Surgical History abdominal surgery Surgical History RT TKR 10/2021 Surgical History COLONOSCOPY Hospitalization History see above [employer] Other 04-01-2022 History general Narrative - Reported* Type Description Date Medical History hypertension Medical History Frozen shoulder Medical History Lumbar pain Surgical History bilateral SANDRO Surgical History abdominal surgery Surgical History RT TKR 10/2021 Surgical History COLONOSCOPY Hospitalization History see above [employer] Other 03-24-2022 Evaluation note* Encounter Date Diagnosis [...] rehab stay. Joints Meeting Checklist - Pharmacy: [facility] med to bed - Approach/Technique: ZULLY - [...] elected to proceed with the above surgery. [employer] Other 03-01-2022 Evaluation note* Encounter Date Diagnosis [...] note writ ten by Richar Kruger LPN, Waiter/Waitress [employer]. Edited and approved by Dr. Wayne Mccallum MD. [employer] Other 03-01-2022 Evaluation note* Encounter Date Diagnosis Assessment Notes Treatment Notes Treatment Clinical Notes Sep, Primary osteoarthritis of both knees (ICD-10 - M17.0) [employer] Other 01-25-2022 Evaluation note* Encounter Date Diagnosis Assessment Notes Treatment Notes Treatment Clinical Notes Jul, Primary osteoarthritis of both knees (ICD-10 - M17.0) [employer] Other 01-13-2022 Evaluation note* Encounter Date Diagnosis [...] note writ ten by Richar Kruger LPN, Waiter/Waitress Bar. Edited and approved by Dr. Wayne Mccallum MD. [employer] Other 10-28-2021 Evaluation note* Encounter Date Diagnosis [...] note writ ten by Nissa Murillo CMA, Waiter/Waitress Bar. Edited and approved by Dr. Wayne Mccallum MD. [employer] Other Evaluation noteNo assessment information available [facility] Work Phone: Evaluation noteNo InformationNortCon[facility] Other Evaluation note* Diagnosis Onset Date Resolution Status Right femoral vein DVT acute [facility] Work Phone: Evaluation note* Diagnosis Onset Date Resolution Status Essential (primary) hypertension acute Knee arthropathy acute Right femoral vein DVT acute PAD (peripheral artery disease) acute Primary osteoarthritis of left knee acute [facility] Work Phone: Evaluation note* Diagnosis Onset Date Resolution Status Essential (primary) hypertension acute Knee arthropathy acute Right femoral vein DVT acute PAD (peripheral artery disease) acute Primary osteoarthritis of left knee acute PAD (peripheral artery disease) acute Venous ulcer of left leg acu te [facility] Work Phone: Evaluation note* Diagnosis Onset Date Resolution Status Primary osteoarthritis of left knee acute PAD (peripheral artery disease) acute Venous ulcer of left leg acu te Primary osteoarthritis of left knee acute [facility] Work Phone: History general Narrative - Reported* Type Description Date Medical History hypertension Surgical History bilateral SANDRO Surgical History abdominal surgery [facility]ELI Other Hospital Discharge instructionsAmbulatory Orders* Referral to Wound Care Time Frame: 10/15/23, Location: None Selected [facility] Work Phone: Family History Relationship Condition [...] Lumbar pain (M54.50) Referral Organization [facility] Referring Provider First Name Ny Referring Provider Last Name Jin Referring Provider Specialty Nurse Pract itioner Referred Organization [facility] Pain Managemen t Bone [place] Referred Provider Wayne Mccallum Referred Address [address] [place],[address] Referred Provider Specialty Pain Medicin e Referral Priority Routine General Notes Eryn Reynoso 02:02:11 PM >received today, patient previously seen by Dr Mccallum (last visit Feb 2022) and is still considered established. sending p2p at this time for scheduling. Reason evaluate and t reat for peripheral vascular disease Diagnosis 1 Peripheral vascular disease (I73.9) Referral Organization [facility] Referring Provider First Name Ny Referring Provider Last Name Annabel Referring Provider Specialty Nurse Pract itioner Referred Organization [facility] Vascular Surge ry Referred Provider Willy Yancey Referred Address [address],[place], [place],[address] Referred Provider Specialty Vascular Samantha piotr Referral Priority Routine General Notes Eryn Reynoso 02:08:33 PM >received today, p2p sent for scheduling Reason *Waiting for appt chronic lumbar - recent MRI Diagnosis 1 Lumbar pain (M54.50) Referral Organization [facility] Referring Provider First Name Vashti Referring Provider Last Name Amber Referring Provider Specialty Family Medi cine Referred Organization [facility] Referred Provider Jose Clark Referred Address [address] ,[place], [place],[address] Referred Provider Specialty Neurological Surgery Referral Priority [...] InformationNo InformationH & P RIGHT TOTAL KNEE [id number] WK WOUND CHECKRecheck Right Knee6 WK RECHECKLT [...] and content) DATE CREATED AUTHOR 12/22/2022 [facility] DATE CREATED AUTHOR AUTHOR'S ORGANIZ ATION 06/20/2023 [facility] DATE CREATED AUTHOR AUTHOR'S ORGANIZ ATION 09/16/2023 [facility] DATE CREATED AUTHOR AUTHOR'S ORGANIZ ATION 11/25/2023 [facility] FOR RECORDS PERTAINING TO PATIENTS [...] BE BASED ON THE PRIMARY CLINICAL RECORDS. [employer] provides no warranty or guarantee of the accuracy or completeness of information in this document.
== END 2024-03-24 09:49 | disposition home or self-care (01) ==
LOC: EC 09:48
PROVIDERS: Visit Provider Orthopaedic Surgery
DX: S82.142D Displaced bicondylar fracture of left tibia, subsequent encounter for closed fracture with routine healing (principal)
CPT/HCPCS: 73560

== ENCOUNTER 2024-04-21 10:03 | Outpatient (OUT) | payer MEDICARE, SELFPAY ==
--- NOTE | 2024-04-21 | XR_ITS ---
[facility] [place] [id number] Patient Name: LINDA BARBOSA MRN: [id number] date: 1950 Sex: F Assigned Patient Location: Current Patient Location: Accession/Order Number: [id number] Exam Date: 04/21/2024 10:07 Report Date: 04/21/2024 15:58 At the request of: TIM MAYORGA Procedure: XR knee LT 2V PROCEDURE: XR knee LT 2V COMPARISON: 03/24/2024 HISTORY: LEFT KNEE PAIN FINDINGS: BONES:Genu varus deformity with stable healing complex intra-articular lateral tibial plateau fracture. There appears to be [id number] articulation of the lateral compartment. SOFT TISSUES:Negative. No visible soft tissue swelling. EFFUSION:Small joint effusion OTHER: Vascular calcifications XR/XR knee LT 2V IMPRESSION: Stable depressed healing intra-articular lateral tibial plateau fracture Electronically authenticated by: NIKHIL ANTHONY Date: 04/21/2024 15:58
--- OUTSIDE RECORDS SUMMARY | 2024-04-21 10:23 | XMS_ITS | CCD ---
Author Organization [facility] Care Team Providers Care Apprentice/Lineman Name Role Phone Wayne Mccallum Unavailable Jose Najera II Unavailable MD Vashti Clark Primary Care Provider [phone] MD Jose Najera II Attending Provider DR [...] physicia Propensity to adverse reactions 5 Comment:Done [facility] Other (6 sources) Allergies Reconciled Propensity to adverse reactions Unknown [facility] Other Medications Current Medications Medication Drug Class(es) [...] 12:00am docusate sodium 50 mg / sennosides, fdc 8.6 mg oral tablet (3 sources) Start: [...] Start: 10-06-2021 take 1 capsule by mo [facility] every twelve hours Cefadroxil 500 MG [...] DISCHARGE DOS:10/24/2021 Sep, Active polyethylene glycol 3350 79221 mg powder for oral solution (8 sources) [...] ity US ankle/arm indiceson US ankle/arm indices [facility] [address] Ultrasound Report Signed Patient: Kami Fink MR#: [id number] [birth year] : 1950 Acct:[id number] Age/Sex: 73 / F ADM Date: 09/13/23 Loc: [facility] Room: Type: [facility] Attending Dr: Willy Yancey MD Ordering [...] Willy Yancey MD09/13/2023 2:37 PM Dictation Location: [place] [address] Tech: Marquita Carlos Transcribed By: DALILA 09/13/23 1437 Dictated By: Willy Yancey MD 09/13/23 1435 Signed By: 09/13/23 1437 Normal [facility] XR knee RT 2Von 11-02-2022 XR knee RT 2V [facility] Main [place] [address] [place] [address] XRay Report Signed Patient: Kami Fink MR#: [id number] [birth year] : 1950 Acct:[id number] Age/Sex: 72 / F ADM Date: 11/02/22 Loc: [facility] Room: Type: [facility] Attending Dr: Jose Najera II, MD [...] Mondragon Jr., D.OEdgard11/02/2022 3:18 PM Dictation Location: [place] [address] Transcribed By: DALILA 11/02/22 1518 Dictated By: Audie Mondragon Jr, DO 11/02/22 1517 Signed By: 11/02/22 1518 Normal [facility] XR knee RT 2V [facility] [place] Other XR knee RT 2V [facility] Main [facility] [place] Other XR knee RT 2V [address] [facility] [place] Other XR knee RT 2[place] [address] [facility] [place] Other XR knee RT 2V XRay Report [facility] Other XR knee RT 2V Signed [facility] Other XR knee RT 2V Patient: Krystle Fink MR#: [id number] [place] Other XR knee RT 2V 31 [facility] Other XR knee RT 2V : 1950 Acct:[id number] [facility] Other XR knee RT 2V Age/Sex: 72 / F ADM Date: 11/02/22 [facility] Other XR knee RT 2V Loc: [facility] Room: Type : [facility] Other XR knee RT 2V Attending Dr: Jose Najera II, MD [facility] Other XR knee RT 2V Copies to: Jose Najera MD [facility] Other XR knee RT 2V Ordering Provider: Jose Najera MD [facility] Other XR knee RT 2V Date of Service: 11/02/22 [facility] Other XR knee RT 2V XR/XR knee RT 2V: History of total right knee replacement [facility] Other XR knee RT 2V RIGHT KNEE - 2 views N [facility] [place] Other XR knee RT 2V CLINICAL HISTORY: Follow-up right TKA [facility] Other XR knee RT 2V COMPARISON: Right knee 01/18/2022 [facility] Other XR knee RT 2V FINDINGS: [facility] Other XR knee RT 2V No evidence of hardware complication or acute bony process. [facility] Other XR knee RT 2V XR/XR knee RT 2V [facility] Other XR knee RT 2V IMPRESSION: [facility] Other XR knee RT 2V NO EVIDENCE OF HARDWARE COMPLICATION. [facility] Other XR knee RT 2V Impression dictated by: Audie Mondragon Jr., D.OEdgard11/02/2022 3:18 PM [facility] Other XR knee RT 2V Dictation Location: [place] [address] [facility] Other XR knee RT 2V Transcribed By: PWS 11/02/22 [facility] Other XR knee RT 2V Dictated By: Audie Mondragon Jr, DO 11/02/22 [facility] Other XR knee RT 2V Signed By: [facility] Other XR knee RT 2V 11/02/22 [facility] [place] Other Vital Signs Date Time Vital Sign Value Performing Clinician Facility 12-13-2023 14:51-0400 Body height 161.29 cm [facility] 12-13-2023 14:51-0400 Body mass index (BMI) [Ratio] 35.4 kg/m2 [facility] 12-13-2023 14:51-0400 Body weight 92.07 kg [facility] 10-15-2023 11:18-0400 Body height 161.29 cm MD Vashti Clark Work Phone: [facility] 10-15-2023 11:18-0400 Body mass index (BMI) [Ratio] 36.6 kg/m2 MD Vashti Clark Work Phone: [facility] 10-15-2023 11:18-0400 Body weight 95.36 kg MD Vashti Clark Work Phone: [facility] 10-15-2023 11:18-0400 Diastolic blood pressure 81 mm[Hg] MD Vashti Clark Work Phone: [facility] 10-15-2023 11:18-0400 Heart rate 77 /min MD Vashti Clark Work Phone: [facility] 10-15-2023 11:18-0400 Systolic blood pressure 142 mm[Hg] MD Vashti Clark Work Phone: [facility] 09-13-2023 11:54-0500 Body height 161.29 cm MD Vashti Clark Work Phone: [facility] 09-13-2023 11:54-0500 Body mass index (BMI) [Ratio] 37.8 kg/m2 MD Vashti Clark Work Phone: [facility] 09-13-2023 11:54-0500 Body temperature 97.6 [degF] MD Vashti Clark Work Phone: [facility] 09-13-2023 11:54-0500 Body weight 98.42 kg MD Vashti Clark Work Phone: [facility] 09-13-2023 11:54-0500 Diastolic blood pressure 82 mm[Hg] MD Vashti Clark Work Phone: [facility] 09-13-2023 11:54-0500 Heart rate 89 /min MD Vashti Clark Work Phone: [facility] 09-13-2023 11:54-0500 Respiratory rate 16 /min MD Vashti Clark Work Phone: [facility] 09-13-2023 11:54-0500 SaO2% (BldA) [Mass fraction] 99 % MD Vashti Clark Work Phone: [facility] 09-13-2023 11:54-0500 Systolic blood pressure 124 mm[Hg] MD Vashti Clark Work Phone: [facility] 08-30-2023 10:41-0500 Body height 161.29 cm [facility] 08-30-2023 10:41-0500 Body mass index (BMI) [Ratio] 37.8 kg/m2 [facility] 08-30-2023 10:41-0500 Body weight 98.42 kg [facility] 08-30-2023 10:41-0500 Diastolic blood pressure 81 mm[Hg] [facility] 08-30-2023 10:41-0500 Heart rate 87 /min [facility] 08-30-2023 10:41-0500 Systolic blood pressure 155 mm[Hg] [facility] 08-23-2023 09:20-0500 Body height 161.29 cm Ny Jin Other [facility] [employer] Other 08-23-2023 09:20-0500 Body mass index (BMI) [Ratio] 37.48 kg/m2 Ny Jin Other [facility] [employer] Other 08-23-2023 09:20-0500 Body weight 97.52 kg Ny Jin Other [facility] [employer] Other 08-16-2023 10:00-0500 Body height 161.29 cm Vashti Clark Other [facility] 08-16-2023 10:00-0500 Body mass index (BMI) [Ratio] 37.83 kg/m2 Vashti Clark Other [facility] [employer] Other 08-16-2023 10:00-0500 Body weight 98.43 kg Vashti Clark Other [facility] [employer] Other 08-16-2023 10:00-0500 Body weight 98.42 kg [facility] 08-16-2023 10:00-0500 Diastolic blood pressure 81 mm[Hg] Vashti Clark Other [facility] 08-16-2023 10:00-0500 Systolic blood pressure 147 mm[Hg] Vashti Clark Other [facility] 05-29-2023 11:30-0500 Body height 161.29 cm Vashti Clark Other [facility] [employer] Other 05-29-2023 11:30-0500 Body mass index (BMI) [Ratio] 37.41 kg/m2 Vashti Clark Other [facility] [employer] Other 05-29-2023 11:30-0500 Body weight 97.34 kg Vashti Clark Other [facility] Other 05-29-2023 11:30-0500 Diastolic blood pressure 85 mm[Hg] Vashti Clark Other [facility] Other 05-29-2023 11:30-0500 Respiratory rate 16 /min Vashti Clark Other [facility] Other 05-29-2023 11:30-0500 Systolic blood pressure 174 mm[Hg] Vashti Clark Other [facility] Other 03-15-2023 08:45-0400 Body height 161.29 cm Jose Coconino II Other [facility] Other 03-15-2023 08:45-0400 Body mass index (BMI) [Ratio] 38.01 kg/m2 Jose Coconino II Other [facility] Other 03-15-2023 08:45-0400 Body weight 98.88 kg Jose Reinaldo II Other [facility] Other 01-18-2023 11:15-0400 Body height 161.29 cm Vashti Clark Other [facility] Other 01-18-2023 11:15-0400 Body mass index (BMI) [Ratio] 38.01 kg/m2 Vashti Clark Other [facility] Other 01-18-2023 11:15-0400 Body weight 98.88 kg Vashti Clark Other [facility] Other 01-18-2023 11:15-0400 Diastolic blood pressure 81 mm[Hg] Vashti Clark Other [facility] Other 01-18-2023 11:15-0400 Systolic blood pressure 167 mm[Hg] Vashti Clark Other [facility] Other 12-12-2022 13:45-0400 Body height 161.29 cm Vashti Clark Other [facility] Other 12-12-2022 13:45-0400 Body mass index (BMI) [Ratio] 37.48 kg/m2 Vashti Clark Other [facility] Other 12-12-2022 13:45-0400 Body weight 97.52 kg Vashti Clark Other [facility] Other 12-12-2022 13:45-0400 Diastolic blood pressure 59 mm[Hg] Vashti Clark Other [facility] Other 12-12-2022 13:45-0400 Systolic blood pressure 147 mm[Hg] Vashti Clark Other [facility] Other 11-02-2022 15:45-0400 Body height 167.64 cm Jose Reinaldo II Other [facility] Other 12-07-2021 11:45-0400 Body height 167.64 cm Jose Coconino II Other [facility] Other 12-07-2021 11:45-0400 Body mass index (BMI) [Ratio] 34.7 kg/m2 Jose Coconino II Other [facility] Other 12-07-2021 11:45-0400 Body weight 97.52 kg Jose Reinaldo II Other [facility] Other 11-16-2021 11:45-0400 Body height 167.64 cm Jose Reinaldo II Other [facility] Other 11-16-2021 11:45-0400 Body mass index (BMI) [Ratio] 34.7 kg/m2 Jose Coconino II Other [facility] Other 11-16-2021 11:45-0400 Body weight 97.52 kg Jose Reinaldo II Other [facility] Other 10-06-2021 16:00-0400 Body height 167.64 cm Jose Coconino II Other [facility] Other 10-06-2021 16:00-0400 Body mass index (BMI) [Ratio] 34.7 kg/m2 Jose Coconino II Other [facility] Other 10-06-2021 16:00-0400 Body weight 97.52 kg Jose Reinaldo II Other [facility] Other 09-13-2021 16:15-0500 Body height 167.64 cm Wayne Mccallum Other [facility] Other 09-13-2021 16:15-0500 Body mass index (BMI) [Ratio] 34.7 kg/m2 Wayne Mccallum Other [facility] Other 09-13-2021 16:15-0500 Body weight 97.52 kg Wayne Mccallum Other [facility] Other Encounters Encounter Date Encounter Type Care Provider Facility Start: 12-13-2023 End: 12-13-2023 ambulatory [facility] Work Phone: Start: 12-13-2023 End: 12-13-2023 Patient encounter procedure [facility] Work Phone: Start: 11-19-2023 End: 11-20-2023 ambulatory Marc Nowak MD Facility:[facility] Start: 10-29-2023 End: 10-30-2023 ambulatory Marc Nowak MD Facility:[facility] Start: 10-15-2023 End: 10-15-2023 ambulatory MD Vashti Clark Work Phone: [facility] Work Phone: Start: 10-15-2023 End: 10-15-2023 Patient encounter procedure MD Vashti Clark Work Phone: [facility] Work Phone: Start: 10-04-2023 End: 10-04-2023 ambulatory MD Vashti Clark Work Phone: [facility] Work Phone: Start: 10-04-2023 End: 10-04-2023 Patient encounter procedure MD Vashti Clark Work Phone: [facility] Work Phone: Start: 10-01-2023 End: 10-02-2023 ambulatory Marc Nowak MD Facility:[facility] Start: 09-24-2023 End: 09-25-2023 ambulatory Marc Nowak MD Facility:[facility] Start: 09-13-2023 End: 09-13-2023 ambulatory Willy Yancey Facility:[facility] Start: 09-13-2023 End: 09-13-2023 Patient encounter procedure MD Vashti Clark Work Phone: [facility] Start: 09-13-2023 End: 09-13-2023 Patient encounter procedure MD Vashti Clark Work Phone: [facility] V[facility] Surgery Work Phone: Start: 08-30-2023 End: 08-30-2023 ambulatory [facility] Work Phone: Start: 08-30-2023 End: 08-30-2023 Patient encounter procedure [facility] Work Phone: Start: 08-27-2023 End: 08-27-2023 ambulatory Ny Jin Other [facility] Other Start: 08-27-2023 Telephone encounter Ny Jin [facility] Start: 08-23-2023 End: 08-23-2023 ambulatory Ny Jin Other [facility] Other Start: 08-23-2023 Office outpatient ne w 45 minutes Ny Jin [facility] Start: 08-16-2023 End: 08-16-2023 ambulatory Vashti Clark Other [facility] Other Start: 08-16-2023 Office outpatient vi sit [address] [facility] Start: 08-16-2023 Telephone encounter Vashti Clark [facility] Start: 08-16-2023 End: 08-16-2023 Patient encounter procedure [facility]- Start: 08-13-2023 End: 08-13-2023 ambulatory Jose Coconino II Other [facility] Other Start: 08-13-2023 Telephone encounter Jose Coconino II [facility] Start: 07-03-2023 End: 07-03-2023 ambulatory Vashti Clark Other [facility] Other Start: 07-03-2023 Telephone encounter Vashti Amber [facility] Start: 06-27-2023 Patient encounter procedure [facility]- Start: 06-18-2023 End: 06-18-2023 ambulatory ANABELLA D DOLCE Not Available Start: 06-11-2023 End: 06-11-2023 ambulatory Vashti Clark Other [facility] Other Start: 06-11-2023 Telephone [address] Vashti Amber [facility] Start: 06-01-2023 End: 06-01-2023 ambulatory ANABELLA D DOLCE Not Available Start: 05-29-2023 End: 05-29-2023 ambulatory Vashti Amber Other [facility] Other Start: 05-29-2023 Office outpatient vi sit [address] [facility] Start: 05-29-2023 Telephone encounter Vashti Amber [facility] Start: 05-14-2023 End: 05-14-2023 ambulatory Jose Reinaldo II Other [facility] Other Start: 05-14-2023 Telephone encounter Jose Coconino II [facility] Start: 04-02-2023 End: 04-02-2023 ambulatory Vashti Amber Other [facility] Other Start: 04-02-[address]23 [address] Vashti Amber [facility] Start: 03-15-2023 End: 03-15-2023 ambulatory Jose Reinaldo II Other [facility] Other Start: 03-15-2023 Office outpatient vi sit 25 minutes Jose Reinaldo II [facility] Start: 02-26-2023 End: 02-26-2023 ambulatory Vashti Clark Other [facility] Other Start: 02-26-2023 Telephone encounter Vashti Clark [facility] Start: 02-08-2023 End: 02-08-2023 ambulatory Jose De Andaisle II Other [facility] Other Start: 02-08-2023 Office outpatient vi sit 25 minutes Jose Coconino II [facility] Start: 01-19-2023 End: 01-19-2023 ambulatory Vashti Clark Other [facility] Other Start: 01-19-2023 Telephone [address] Vashti Clark [facility] Start: 01-18-2023 End: 01-18-2023 ambulatory Vashti Clark Other [facility] Other Start: 01-18-2023 Office outpatient vi sit [address] [facility] Start: 01-17-2023 End: 01-17-2023 ambulatory Jose Coconino II Other [facility] Other Start: 01-17-2023 Telephone encounter Jose Peñale II [facility] Start: 12-13-2022 End: 12-13-2022 ambulatory Vashti Clark Other [facility] Other Start: 12-13-2022 Telephone encounter Jose De Andaisle II [facility] Start: 12-12-2022 End: 12-13-[address] VASHTI CLARK Facility: Start: 12-12-2022 Office outpatient vi sit [address] [facility] Start: 11-02-2022 End: 11-02-2022 ambulatory Jose Tequila Peñale II [facility] Other Start: 11-02-2022 Office outpatient vi sit 25 minutes Jose Coconino II [facility] Start: 10-10-2022 End: 10-10-2022 ambulatory Jose Coconino II Other [facility] Other Start: 10-10-2022 Telephone encounter Jose Coconino II [facility] Start: 06-23-2022 End: 06-23-2022 ambulatory MD Vashti Clark Work Phone: [facility] Work Phone: Start: 06-23-2022 End: 06-23-2022 Patient encounter procedure MD Vashti Clark Work Phone: [facility] Start: 04-13-2022 End: 04-13-2022 ambulatory Jose Reinaldo II Other [facility] Other Start: 04-13-2022 Telephone encounter Jose Reinaldo II [facility] Start: 03-06-2022 End: 03-06-2022 ambulatory Wayne Mccallum Other [facility] Other Start: 03-06-2022 Office outpatient vi sit 15 minutes Wayne Mccallum [facility] [place] Start: 01-18-2022 (Post-Op) Post-Op Jose Reinaldo II [facility] Start: 01-18-2022 End: 01-18-2022 ambulatory Jose Coconino II Other [facility] Other Start: 12-07-2021 (Post-Op) Post-Op Jose Reinaldo II [facility] Start: 12-07-2021 End: 12-07-2021 ambulatory Jose Reinaldo II Other [facility] Other Start: 11-21-2021 Pre-procedure evaluation check Jose Reinaldo II Other [facility] Other Start: 11-16-2021 End: 11-16-2021 ambulatory Jose Reinaldo II Other [facility] Other Start: 11-16-2021 Office outpatient vi sit 15 minutes Jose Coconino II [facility] Start: 10-14-2021 (Prolonged) Prolonge d Services Jose Reinaldo II [facility] Start: 10-14-2021 End: 10-14-2021 ambulatory Jose Coconino II Other [facility] Other Start: 10-06-2021 End: 10-06-2021 ambulatory Jose Coconino II Other [facility] Other Start: 10-06-2021 Office outpatient vi sit 25 minutes Jose De Andaisle II [facility] Start: 09-13-2021 End: 09-13-2021 ambulatory Jose Coconino II Other [facility] Other Start: 09-13-2021 Office outpatient vi sit 25 minutes Wayne Mccallum [facility] [place] Start: 09-13-2021 Telephone encounter Jose De Andaisle II [facility] Start: 08-09-2021 End: 08-09-2021 ambulatory Wayne Mccallum Other [facility] Other Start: 08-09-2021 Telephone encounter Wayne Mccallum [facility] Start: 07-28-2021 End: 07-28-2021 ambulatory Wayne Mccallum Other [facility] Other Start: 07-28-2021 Office outpatient vi sit 15 minutes Wayne Mccallum [facility] [place] Start: 06-27-2021 Adult health examination Jose De Andaisle II Other [facility] Other Start: 05-12-2021 Office outpatient vi sit 15 minutes Wayne Mccallum [facility] [place] Procedures Date Procedure Procedure Detail Performing Clinician [...] [facility] Work Phone: Patient referral [facility] Work Phone: Immunizations Immunization Date Immunization Notes Care Provider [facility] 05-29-2023 influenza virus vaccine, unspecified formulation [facility] 05-29-2023 influenza, high dose seasonal, preservative-free Vashti Clark Other [facility] Other 04-11-2021 COVID-19 mRNA Comirnaty (Pfizer) MD Vashti Clark Work Phone: [facility] 09-07-2020 COVID-19 mRNA Comirnaty (Pfizer) MD Vashti Clark Work Phone: [facility] 08-17-2020 COVID-19 mRNA Comirnatwinter (Pfizer) MD Vashti Clark Work Phone: [facility] 05-24-2020 Kenalog -40 mg Wayne Mccallum Other [facility] Other 03-31-2020 influenza virus vaccine, split virus (incl. purified surface antigen) Jose Najera II Other [place] Other 03-31-2020 influenza virus vaccine, unspecified formulation [facility] 08-11-2019 Kenalog -40 mg Wayne Felter Other [facility] Other 11-04-2018 Kenalog -40 mg Wayne Felter Other [facility] Other 03-19-2018 Supartz Wayne Felter Other [facility] Other 03-12-2018 Theraputic Injection Wayne Payneer Other [facility] Other 03-05-2018 Supartz Wayne Felter Other [facility] Other 02-26-2018 Supartz Wayne Felter Other [facility] Other 02-19-2018 Supartz Wayne Felter Other [facility] Other 11-27-2017 Kenalog -40 mg Wayne Felter Other [facility] Other 05-31-2016 influenza virus vaccine, split virus (incl. purified surface antigen) Jose Peñale II Other [place] Other 05-31-2016 influenza virus vaccine, unspecified formulation [facility] 05-31-2016 pneumococcal polysaccharide vaccine, 23 valent Jose Reinaldo II Other [facility] Payers Date Payer Category Payer Medicare 2023 Unknown 2022 Self-pay [id number] 1961 Medicare [id number] 2.1 [id number] 1961 Unknown [id number] 2.1 [id number] 1950 Unknown [id number] 2.16.84 [id number] 1950 Unknown [id number] 2.16.840 .[id number] 1950 Unknown [id number] 2.16.840 .[id number] 1950 Unknown [id number] 2.16. [id number] 1950 Unknown [id number] 2.16. [id number] 1950 Unknown [id number] 2.16. [id number] 1950 Unknown [id number] 2.16. [id number] Unknown Karen BC/BS [id number] Unknown [id number] 2.16.8 [id number] Unknown [id number] 2.16.8 [id number] Social History Date Type Detail Facility Unknown if ever smoked [facility] Other Sex Assigned At Sex Assigned At Bir th [facility] Other Start: 10-26-2021 End: 10-26-2021 Tobacco smoking status NHIS Never smoked tobacco (finding) [facility] Start: 1950 Sex Assigned At Female F [facility] Medical Equipment Procedure Code Equipment Code Equipment Origin al Text Equipment Identifier Dates Arthroplasty, knee, total, minimally invasive Orthopaedic cement, non-medicated [id number] FDA Start: 10-24-2021 Arthroplasty, knee, total, minimally invasive Uncoated knee femur prosthesis, metallic [id number] FDA Start: 10-24-2021 Arthroplasty, knee, total, minimally invasive Tibial insert [id number] FDA Start: 10-24-2021 Arthroplasty, knee, total, minimally invasive Polyethylene patella prosthesis ()[id number] FDA Start: 10-24-2021 Arthroplasty, knee, total, minimally invasive Knee stem ()[id number] FDA Start: 10-24-2021 Arthroplasty, knee, total, minimally invasive Uncoated knee tibia prosthesis, metallic ()[id number] FDA Start: 10-24-2021 Clinical Notes 05-12-2021 to [...] Aug, Lower extremity edema (ICD-10 - R60.0) [facility] Other 02-01-2024 Evaluation note* Encounter Date Diagnosis Assessment Notes Treatment Notes Treatment Clinical Notes Aug, Leg edema, right (ICD-10 - R60.0) Check US today, discussed other possibilities but r/o DVT first. [facility] Other 12-19-2023 Evaluation note* Encounter Date Diagnosis Assessment Notes Treatment Notes Treatment Clinical Notes Jun, Lumbar pain (ICD-10 - M54.50) [facility] Other 11-27-2023 Evaluation note* Encounter Date Diagnosis Assessment Notes Treatment Notes Treatment Clinical Notes May, DDD (degenerative disc disease), lumbar (ICD-10 - M51.36) [facility] Other 11-14-2023 Evaluation note* Encounter Date Diagnosis Assessment Notes Treatment Notes Treatment Clinical Notes May, Peripheral polyneuropathy (ICD-10 - G62.9) Requests labs to r/o metabolic causes. May, Lumbar pain (ICD-10 - M54.50) Chronic lumbar pain. Agrees to start w xray. May, Paronychia, toe, lef t (ICD-10 - L03.032) Pt requests antibiotic at end of visit. Keep foot clean and dry. [facility] Other 08-31-2023 Evaluation note* Encounter Date Diagnosis [...] wedding planned the end of August 2023. [facility] Other 07-27-2023 Evaluation note* Encounter Date Diagnosis [...] it is not something that I prescribed. [facility] Other 07-06-2023 Evaluation note* Encounter Date Diagnosis Assessment Notes Treatment Notes Treatment Clinical Notes Jan, Easy bruisability (ICD-10 - R23.3) Pt will get labs today. Discussed possible link w the frequent NSAIDs Jan, Essential (primary) hypertension (ICD-10 - I10) Due for labs. Possible elevated glucose - nonfasting, had steroid pills and injections due to foot issues. She is seeing podiatry for plantar fasciitis. [facility] Other 07-06-2023 Evaluation note* Encounter Date Diagnosis [...] symptoms. Any developing patterns. Stay well hydrated. [facility] Other 05-31-2023 NotePROCEDURE: XR FOOT LT MIN [...] Electronically authenticated by: TIM TORREZ Date: 2022-12-13 08:39[facility]05-30-2023 Evaluation note* Encounter Date Diagnosis Assessment Notes Treatment Notes Treatment Clinical Notes November, Left foot pain (ICD-10 - M79.672) Discussed primary concern of stress fracture. Pt agrees to xray. Reviewed ortho notes. She is to followup there prn. [facility] Other 2023 Evaluation note* Encounter Date Diagnosis Assessment Notes Treatment Notes Treatment Clinical Notes Oct, History of total right knee replacement (ICD-10 - Z96.651) Oct, Primary osteoarthritis of both knees (ICD-10 - M17.0) Oct, Other [facility] on 10/24/2021 Happy with surgical result [...] as needed basis for the left knee. [facility] Other 09-29-2022 Evaluation note* Encounter Date Diagnosis Assessment Notes Treatment Notes Treatment Clinical Notes Mar, Primary osteoarthritis of both knees (ICD-10 - M17.0) [facility] Other 08-22-2022 Evaluation note* Encounter Date Diagnosis [...] note writ ten by Richar Kruger LPN, Can Striper. Edited and approved by Dr. Wayne Mccallum MD. [facility] Other 07-06-2022 Evaluation note* Encounter Date Diagnosis Assessment Notes Treatment Notes Treatment Clinical Notes Jan, Primary osteoarthritis of both knees (ICD-10 - M17.0) Jan, Aftercare following joint replacement surgery (ICD-10 - Z47.1) Jan, History of total right knee replacement (ICD-10 - Z96.651) Jan, Other [facility] at [facility] on 10/24/2021 Doing well Discussed post-op dental prophylaxis. Shared decision made to continue prophylactic antibiotics indefinitely. Follow-up at 1 year post-op for repeat examination and 2 view x-rays of the right knee. Patient instructed to call with any questions or concerns. [facility] Other 05-25-2022 Evaluation note* Encounter Date Diagnosis Assessment Notes Treatment Notes Treatment Clinical Notes November, Primary osteoarthritis of both knees (ICD-10 - M17.0) November, Aftercare following joint replacement surgery (ICD-10 - Z47.1) November, History of total right knee replacement (ICD-10 - Z96.651) November, Other [facility] at [facility] on 10/24/2021 Doing well Patient may continue activities as tolerated. Continue PT as recommended. Continue taking fcvd-[id number]-[id number] anti-inflammatori es as needed for assistance with swelling and pain associated with the operative extremity. Follow-up in 6 weeks for repeat examination and long standing x-rays. [facility] Other 05-04-2022 Evaluation note* Encounter Date Diagnosis [...] for 3 views of the right knee. [facility] Other 04-01-2022 Evaluation note* Encounter Date Diagnosis [...] patient could proceed with surgery safely. The inside channel account manager was vital for surgery timing and [...] plans. Prolonged services time spent: 37 minutes [facility] Other 04-01-2022 History general Narrative - Reported* Type Description Date Medical History hypertension Surgical History bilateral SANDRO Surgical History abdominal surgery Surgical History RT TKR 10/2021 Hospitalization History see above [facility] Other 04-01-2022 History general Narrative - Reported* Type Description Date Medical History hypertension Surgical History bilateral SANDRO Surgical History abdominal surgery Surgical History RT TKR 10/2021 Surgical History COLONOSCOPY Hospitalization History see above [facility] Other 04-01-2022 History general Narrative - Reported* Type Description Date Medical History hypertension Medical History Frozen shoulder Medical History Lumbar pain Surgical History bilateral SANDRO Surgical History abdominal surgery Surgical History RT TKR 10/2021 Surgical History COLONOSCOPY Hospitalization History see above [facility] Other 03-24-2022 Evaluation note* Encounter Date Diagnosis [...] Joints Meeting Checklist - Pharmacy: [facility] med to bed - Approach/Technique: ZULLY - [...] elected to proceed with the above surgery. [facility] Other 03-01-2022 Evaluation note* Encounter Date Diagnosis [...] note writ ten by Richar Kruger LPN, Can Striper. Edited and approved by Dr. Wayne Mccallum MD. [facility] Other 03-01-2022 Evaluation note* Encounter Date Diagnosis Assessment Notes Treatment Notes Treatment Clinical Notes Sep, Primary osteoarthritis of both knees (ICD-10 - M17.0) [facility] Other 01-25-2022 Evaluation note* Encounter Date Diagnosis Assessment Notes Treatment Notes Treatment Clinical Notes Jul, Primary osteoarthritis of both knees (ICD-10 - M17.0) [facility] Other 01-13-2022 Evaluation note* Encounter Date Diagnosis [...] note writ ten by Richar Kruger LPN, Can Striper. Edited and approved by Dr. Wayne Mccallum MD. [facility] Other 10-28-2021 Evaluation note* Encounter Date Diagnosis [...] note writ ten by Nissa Murillo CMA, Can Striper. Edited and approved by Dr. Wayne Mccallum MD. [facility] Other Evaluation noteNo assessment information available [facility] Work Phone: Evaluation noteNo InformationNortPaladin Healthcare [employer] Other Evaluation note* Diagnosis Onset Date Resolution Status Right femoral vein DVT acute [facility] Work Phone: Evaluation note* Diagnosis Onset Date Resolution Status Essential (primary) hypertension acute Knee arthropathy acute Right femoral vein DVT acute PAD (peripheral artery disease) acute Primary osteoarthritis of left knee acute [facility] Work Phone: Evaluation note* Diagnosis Onset Date Resolution Status Essential (primary) hypertension acute Knee arthropathy acute Right femoral vein DVT acute PAD (peripheral artery disease) acute Primary osteoarthritis of left knee acute PAD (peripheral artery disease) acute Venous ulcer of left leg acu te [facility] Work Phone: Evaluation note* Diagnosis Onset Date Resolution Status Primary osteoarthritis of left knee acute PAD (peripheral artery disease) acute Venous ulcer of left leg acu te Primary osteoarthritis of left knee acute [facility] Work Phone: History general Narrative - Reported* Type Description Date Medical History hypertension Surgical History bilateral SANDRO Surgical History abdominal surgery [facility] [employer] Other Hospital Discharge instructionsAmbulatory Orders* Referral to Wound Care Time Frame: 10/15/23, Location: None Selected [facility] Work Phone: Family History Relationship Condition Age [...] Lumbar pain (M54.50) Referral Organization [facility] Referring Provider First Name Ny Referring Provider Last Name Jin Referring Provider Specialty Nurse Pract itioner Referred Organization [facility] Pain Managemen t Bone [place] Referred Provider Wayne Mccallum Referred Address [address] [place],[address] Referred Provider Specialty Pain Medicin e Referral Priority Routine General Notes Eryn Reynoso 02:02:11 PM >received today, patient previously seen by Dr Mccallum (last visit Feb 2022) and is still considered established. sending p2p at this time for scheduling. Reason evaluate and t reat for peripheral vascular disease Diagnosis 1 Peripheral vascular disease (I73.9) Referral Organization [facility] Referring Provider First Name Ny Referring Provider Last Name Annabel Referring Provider Specialty Nurse Pract itioner Referred Organization [facility] Vascular Surge ry Referred Provider Willy Yancey Referred Address [address],[place], [place],[address] Referred Provider Specialty Vascular Samantha piotr Referral Priority Routine General Notes Eryn Reynoso 02:08:33 PM >received today, p2p sent for scheduling Reason *Waiting for appt chronic lumbar - recent MRI Diagnosis 1 Lumbar pain (M54.50) Referral Organization [facility] Referring Provider First Name Vashti Referring Provider Last Name Amber Referring Provider Specialty Family Medi cine Referred Organization [facility] Referred Provider Jose Clark Referred Address [address] ,[place], [place],[address] Referred Provider Specialty Neurological Surgery Referral Priority [...] InformationNo InformationH & P RIGHT TOTAL KNEE [id number] WK WOUND CHECKRecheck Right Knee6 WK RECHECKLT [...] and content) DATE CREATED AUTHOR 12/22/2022 [facility] DATE CREATED AUTHOR AUTHOR'S ORGANIZ ATION 06/20/2023 [facility] DATE CREATED AUTHOR AUTHOR'S ORGANIZ ATION 09/16/2023 [facility] DATE CREATED AUTHOR AUTHOR'S ORGANIZ ATION 11/25/[address] [facility] FOR RECORDS PERTAINING TO PATIENTS WHO [...] BE BASED ON THE PRIMARY CLINICAL RECORDS. [employer] provides no warranty or guarantee of the accuracy or completeness of information in this document.
== END 2024-04-21 10:04 | disposition home or self-care (01) ==
LOC: EC 10:03
PROVIDERS: Visit Provider Orthopaedic Surgery
DX: S82.142D Displaced bicondylar fracture of left tibia, subsequent encounter for closed fracture with routine healing (principal)
CPT/HCPCS: 73560

== ENCOUNTER 2024-04-25 12:58 | Outpatient (OUT) | payer MEDICARE, SELFPAY ==
--- NOTE | 2024-04-25 13:04 | CT_ITS ---
The [address] [address] Patient Name: LINDA BARBOSA MRN: [id number] date: 1950 Sex: F Assigned Patient Location: CT Current Patient Location: Accession/Order Number: [id number] Exam Date: 04/25/2024 13:05 Report Date: 04/27/2024 07:40 At the request of: TIM MAYORGA Procedure: CT knee LT wo con EXAMINATION: CT knee LT wo con HISTORY: Closed Fracture Of Left Tibial Plateau COMPARISON: CT knee left 12/26/2023 TECHNIQUE: Multi-planar CT images were created without and/or with IV contrast according to examination type. Dose reduction techniques were achieved by using automated exposure control and/or adjustment of mA and/or kV according to patient size and/or use of iterative reconstruction technique. FINDINGS: BONES: Marked narrowing of the lateral joint space with dfrb-jy-[id number] articulation and subchondral sclerosis. Stable mildly displaced fracture involving the lateral rim/margin of the tibia. Developing callus formation along the margins. SOFT TISSUES: Dense fluid collection containing calcifications posterior to the proximal tibia, 6.7 cm cephalad-caudad by 2.9 x 1.7 cm; suspect old intramuscular hematoma. EFFUSION: Moderate joint effusion. OTHER: Negative. CT/CT knee LT wo con IMPRESSION: 1. Stable alignment of the mildly displaced fracture involving lateral margin of the tibial plateau. Callus formation along the margins compatible with ongoing bone healing. 2. Marked degenerative joint disease involving the lateral compartment. 3. Moderate to large joint effusion; greater than seen on the 12/26/2023 study. 4. Intramuscular hematoma within the gastrocnemius muscle; significantly smaller than previously seen. Electronically authenticated by: TIM TORREZ Date: 04/27/2024 07:40
--- OUTSIDE RECORDS SUMMARY | 2024-04-25 13:12 | XMS_ITS | CCD ---
Author Organization [facility] Care Team Providers Care Salvage Worker Name Role Phone Wayne Mccallum Unavailable Jose [...] Care Provider MD Willy Yancey Attending Provider [phone] She MUJICA, Marc Tavares Attending Unavailable She MUJICA, Christopherus Anusha Attending Unavailable She MUJICA, Kamilahrius Anusha Attending Unavailable She MUJICA, Marc Tavares Attending Unavailable Allergies Allergy Classification Reported Allergen(s) Allergy Type Date of Onset Reaction(s) Facility (6 sources) patient allergy list reviewed by nurse or physicia Propensity to adverse reactions 5 Comment:Done [employer] [facility] Other (6 sources) Allergies Reconciled Propensity to adverse reactions Unknown [facility] Other Medications Current Medications Medication Drug Class(es) [...] 12:00am docusate sodium 50 mg / sennosides, care home 8.6 mg oral tablet (3 sources) Start: [...] 10-06-2021 take 1 capsule by mo [facility] every twelve hours Cefadroxil [...] DISCHARGE DOS:10/24/2021 Sep, Active polyethylene glycol 3350 01281 mg powder for oral solution (8 sources) [...] ity US ankle/arm indiceson US ankle/arm indices [facility] [place] [address] Ultrasound Report Signed Patient: Kami Fink MR#: [id number] [birth year] : 1950 Acct:[id number] Age/Sex: 73 / F ADM Date: 09/13/23 Loc: [facility] Room: Type: [facility] Attending Dr: Willy Yancey MD Ordering Provider: [...] Willy Yancey MD09/13/2023 2:37 PM Dictation Location: [place] [address] Tech: Marquita Carlos Transcribed By: DALILA 09/13/23 1437 Dictated By: Willy Yancey MD 09/13/23 1435 Signed By: 09/13/23 1437 Normal [facility] XR knee RT 2Von 11-02-2022 XR knee RT 2V [facility] Main [place] [address] [place] [address] XRay Report Signed Patient: Kami Fink MR#: [id number] [birth year] : 1950 Acct:[id number] Age/Sex: 72 / F ADM Date: 11/02/22 Loc: [facility] Room: Type: [facility] Attending Dr: Jose Najera II, MD Copies [...] Mondragon Jr., D.OEdgard11/02/2022 3:18 PM Dictation Location: [place] [address] Transcribed By: DALILA 11/02/22 1518 Dictated By: Audie Mondragon Jr, DO 11/02/22 1517 Signed By: 11/02/22 1518 Normal [facility] XR knee RT 2V [facility] Other XR knee RT 2V [facility] Main [facility] Other XR knee RT 2V [address] [facility] Other [place]R [place] 2[place] [address] [facility] Other XR knee RT 2V XRay Report [facility] [employer] Other XR knee RT 2V Signed [employer] Other XR knee RT 2V Patient: Krystle Fink MR#: [id number] [facility] Other XR knee RT 2V 31 [employer] Other XR knee RT 2V : 1950 Acct:[id number] [employer] Other XR knee RT 2V Age/Sex: 72 / F ADM Date: 11/02/22 [employer] [facility] Other XR knee RT 2V Loc: [facility] Room: Type : [facility] [employer] Other XR knee RT 2V Attending Dr: Jose Najera II, MD [employer] [facility] Other XR knee RT 2V Copies to: Jose Najera MD [employer] [facility] Other XR knee RT 2V Ordering Provider: Jose Najera MD [employer] [facility] Other XR knee RT 2V Date of Service: 11/02/22 [employer] [facility] Other XR knee RT 2V XR/XR knee RT 2V: History of total right knee replacement [employer] Other XR knee RT 2V RIGHT KNEE - 2 views N [facility] Other XR knee RT 2V CLINICAL HISTORY: Follow-up right TKA [employer] Other XR knee RT 2V COMPARISON: Right knee 01/18/2022 [employer] Other XR knee RT 2V FINDINGS: [employer] Other XR knee RT 2V No evidence of hardware complication or acute bony process. [employer] Other XR knee RT 2V XR/XR knee RT 2V [employer] Other XR knee RT 2V IMPRESSION: [email or web address] Other XR knee RT 2V NO EVIDENCE OF HARDWARE COMPLICATION. [employer] Other XR knee RT 2V Impression dictated by: Audie Mondragon Jr., D.OEdgard11/02/2022 3:18 PM [employer] [facility] Other XR knee RT 2V Dictation Location: [place] [address] [facility] Other XR knee RT 2V Transcribed By: PWS 11/02/22 [facility] [employer] Other XR knee RT 2V Dictated By: Audie Mondragon Jr, DO 11/02/22 [facility] [employer] Other XR knee RT 2V Signed By: [employer] Other XR knee RT 2V 11/02/22 [facility] [employer] Other Vital Signs Date Time Vital Sign Value Performing Clinician Facility 12-13-2023 14:51-0400 Body height 161.29 cm [facility] 12-13-2023 14:51-0400 Body mass index (BMI) [Ratio] 35.4 kg/m2 [facility] 12-13-2023 14:51-0400 Body weight 92.07 kg [facility] 10-15-2023 11:18-0400 Body height 161.29 cm MD Vashti Clark Work Phone: [facility] 10-15-2023 11:18-0400 Body mass index (BMI) [Ratio] 36.6 kg/m2 MD Vashti Clark Work Phone: [facility] 10-15-2023 11:18-0400 Body weight 95.36 kg MD Vashti Clark Work Phone: [facility] 10-15-2023 11:18-0400 Diastolic blood pressure 81 mm[Hg] MD Vsahti Clark Work Phone: [facility] 10-15-2023 11:18-0400 Heart rate 77 /min MD Vashti Clark Work Phone: [facility] 10-15-2023 11:18-0400 Systolic blood pressure 142 mm[Hg] MD Vashti Clark Work Phone: [facility] 09-13-2023 11:54-0500 Body height 161.29 cm MD Vashti Clark Work Phone: [facility] 09-13-2023 11:54-0500 Body mass index (BMI) [Ratio] 37.8 kg/m2 MD Vashti Clark Work Phone: [facility] 09-13-2023 11:54-0500 Body temperature 97.6 [degF] MD Vashti Clark Work Phone: [facility] 09-13-2023 11:54-0500 Body weight 98.42 kg MD Vashti Clark Work Phone: [facility] 09-13-2023 11:54-0500 Diastolic blood pressure 82 mm[Hg] MD Vashti Clark Work Phone: [facility] 09-13-2023 11:54-0500 Heart rate 89 /min MD Vashti Clark Work Phone: [facility] 09-13-2023 11:54-0500 Respiratory rate 16 /min MD Vashti Clark Work Phone: [facility] 09-13-2023 11:54-0500 SaO2% (BldA) [Mass fraction] 99 % MD Vashti Clark Work Phone: [facility] 09-13-2023 11:54-0500 Systolic blood pressure 124 mm[Hg] MD Vashti Clark Work Phone: [facility] 08-30-2023 10:41-0500 Body height 161.29 cm [facility] 08-30-2023 10:41-0500 Body mass index (BMI) [Ratio] 37.8 kg/m2 [facility] 08-30-2023 10:41-0500 Body weight 98.42 kg [facility] 08-30-2023 10:41-0500 Diastolic blood pressure 81 mm[Hg] [facility] 08-30-2023 10:41-0500 Heart rate 87 /min [facility] 08-30-2023 10:41-0500 Systolic blood pressure 155 mm[Hg] [facility] 08-23-2023 09:20-0500 Body height 161.29 cm Ny Jin Other [facility] [employer] Other 08-23-2023 09:20-0500 Body mass index (BMI) [Ratio] 37.48 kg/m2 Ny Jin Other [facility] [employer] Other 08-23-2023 09:20-0500 Body weight 97.52 kg Ny Jin Other [facility] [employer] Other 08-16-2023 10:00-0500 Body height 161.29 cm Vashti Clark Other [facility] 08-16-2023 10:00-0500 Body mass index (BMI) [Ratio] 37.83 kg/m2 Vashti Clark Other [facility] [employer] Other 08-16-2023 10:00-0500 Body weight 98.43 kg Vashti Clark Other [facility] [employer] Other 08-16-2023 10:00-0500 Body weight 98.42 kg [facility] 08-16-2023 10:00-0500 Diastolic blood pressure 81 mm[Hg] Vashti Clark Other [facility] 08-16-2023 10:00-0500 Systolic blood pressure 147 mm[Hg] Vashti Clark Other [facility] 05-29-2023 11:30-0500 Body height 161.29 cm Vashti Clark Other [facility] [employer] Other 05-29-2023 11:30-0500 Body mass index (BMI) [Ratio] 37.41 kg/m2 Vashti Clark Other [facility] [employer] Other 05-29-2023 11:30-0500 Body weight 97.34 kg Vashti Clark Other [employer] Other 05-29-2023 11:30-0500 Diastolic blood pressure 85 mm[Hg] Vashti Clark Other [employer] Other 05-29-2023 11:30-0500 Respiratory rate 16 /min Vashti Clark Other [employer] Other 05-29-2023 11:30-0500 Systolic blood pressure 174 mm[Hg] Vashti Clark Other [employer] Other 03-15-2023 08:45-0400 Body height 161.29 cm Jose Reinaldo II Other [employer] Other 03-15-2023 08:45-0400 Body mass index (BMI) [Ratio] 38.01 kg/m2 Jose Reinaldo II Other [employer] Other 03-15-2023 08:45-0400 Body weight 98.88 kg Jose Reinaldo II Other [employer] Other 01-18-2023 11:15-0400 Body height 161.29 cm Vashti Clark Other [employer] Other 01-18-2023 11:15-0400 Body mass index (BMI) [Ratio] 38.01 kg/m2 Vashti Clark Other [employer] Other 01-18-2023 11:15-0400 Body weight 98.88 kg Vashti Clark Other [employer] Other 01-18-2023 11:15-0400 Diastolic blood pressure 81 mm[Hg] Vashti Clark Other [employer] Other 01-18-2023 11:15-0400 Systolic blood pressure 167 mm[Hg] Vashti Clark Other [employer] Other 12-12-2022 13:45-0400 Body height 161.29 cm Vashti Clark Other [employer] Other 12-12-2022 13:45-0400 Body mass index (BMI) [Ratio] 37.48 kg/m2 Vashti Clark Other [employer] Other 12-12-2022 13:45-0400 Body weight 97.52 kg Vashti Clark Other [employer] Other 12-12-2022 13:45-0400 Diastolic blood pressure 59 mm[Hg] Vashti Clark Other [employer] Other 12-12-2022 13:45-0400 Systolic blood pressure 147 mm[Hg] Vashti Clark Other [employer] Other 11-02-2022 15:45-0400 Body height 167.64 cm Jose Cherry II Other [employer] Other 12-07-2021 11:45-0400 Body height 167.64 cm Jose Cherry II Other [employer] Other 12-07-2021 11:45-0400 Body mass index (BMI) [Ratio] 34.7 kg/m2 Jose Reinaldo II Other [employer] Other 12-07-2021 11:45-0400 Body weight 97.52 kg Jose Reinaldo II Other [employer] Other 11-16-2021 11:45-0400 Body height 167.64 cm Jose Cherry II Other [employer] Other 11-16-2021 11:45-0400 Body mass index (BMI) [Ratio] 34.7 kg/m2 Jose Cherry II Other [employer] Other 11-16-2021 11:45-0400 Body weight 97.52 kg Jose Reinaldo II Other [employer] Other 10-06-2021 16:00-0400 Body height 167.64 cm Jose Reinaldo II Other [employer] Other 10-06-2021 16:00-0400 Body mass index (BMI) [Ratio] 34.7 kg/m2 Jose Reinaldo II Other [employer] Other 10-06-2021 16:00-0400 Body weight 97.52 kg Jose Reinaldo II Other [employer] Other 09-13-2021 16:15-0500 Body height 167.64 cm Wayne Mccallum Other [employer] Other 09-13-2021 16:15-0500 Body mass index (BMI) [Ratio] 34.7 kg/m2 Wayne Mccallum Other [employer] Other 09-13-2021 16:15-0500 Body weight 97.52 kg Wayne Mccallum Other [employer] Other Encounters Encounter Date Encounter Type Care Provider Facility Start: 12-13-2023 End: 12-13-2023 ambulatory [facility] Work Phone: Start: 12-13-2023 End: 12-13-2023 Patient encounter procedure [facility] Work Phone: Start: 11-19-2023 End: 11-20-2023 ambulatory Marc Nowak MD Facility:[facility] Start: 10-29-2023 End: 10-30-2023 ambulatory Marc Nowak MD Facility:[facility] Start: 10-15-2023 End: 10-15-2023 ambulatory MD Vashti Clark Work Phone: [facility] Work Phone: Start: 10-15-2023 End: 10-15-2023 Patient encounter procedure MD Vashti Clark Work Phone: [facility] Work Phone: Start: 10-04-2023 End: 10-04-2023 ambulatory MD Vashti Clark Work Phone: [facility] Work Phone: Start: 10-04-2023 End: 10-04-2023 Patient encounter procedure MD Vashti Clark Work Phone: [facility] Work Phone: Start: 10-01-2023 End: 10-02-2023 ambulatory Marc Nowak MD Facility:[facility] Start: 09-24-2023 End: 09-25-2023 ambulatory Marc Nowak MD Facility:[facility] Start: 09-13-2023 End: 09-13-2023 ambulatory Willy Yancey Facility:[facility] Start: 09-13-2023 End: 09-13-2023 Patient encounter procedure MD Vashti Clark Work Phone: [facility] Start: 09-13-2023 End: 09-13-2023 Patient encounter procedure MD Vashti Clark Work Phone: [facility] Surgery Work Phone: Start: 08-30-2023 End: 08-30-2023 ambulatory [facility] Work Phone: Start: 08-30-2023 End: 08-30-2023 Patient encounter procedure [facility] Work Phone: Start: 08-27-2023 End: 08-27-2023 ambulatory Ny Jin Other [employer] Other Start: 08-27-2023 Telephone encounter Ny Jin [facility] [employer] [facility] Start: 08-23-2023 End: 08-23-2023 ambulatory Ny Jin Other [employer] Other Start: 08-23-2023 Office outpatient ne w 45 minutes Ny Jin [facility] Start: 08-16-2023 End: 08-16-2023 ambulatory Vashti Clark Other [employer] Other Start: 08-16-2023 Office outpatient vi sit 15 minutes Vashti Clark [facility] Start: 08-16-2023 Telephone encounter Vashti Clark [facility] Start: 08-16-2023 End: 08-16-2023 Patient encounter procedure [facility] Start: 08-13-2023 End: 08-13-2023 ambulatory Jose Cherry II Other [employer] Other Start: 08-13-2023 Telephone encounter Jose Cherry II [facility] Start: 07-03-2023 End: 07-03-2023 ambulatory Vashti Clark Other [employer] Other Start: 07-03-2023 Telephone encounter Vashti Amber [facility] Start: 06-27-2023 Patient encounter procedure [facility]- Start: 06-18-2023 End: 06-18-2023 ambulatory ANABELLA D DOLCE Not Available Start: 06-11-2023 End: 06-11-2023 ambulatory Vashti Clark Other [employer] Other Start: 06-11-2023 Telephone encounter Vashti Amber [facility] Start: 06-01-2023 End: 06-01-2023 ambulatory ANABELLA D DOLCE Not Available Start: 05-29-2023 End: 05-29-2023 ambulatory Vashti Amber Other [employer] Other Start: 05-29-2023 Office outpatient vi sit 15 minutes Vashti Clark [facility] Start: 05-29-2023 Telephone encounter Vashti Amber [facility] Start: 05-14-2023 End: 05-14-2023 ambulatory Jose Reinaldo II Other [employer] Other Start: 05-14-2023 Telephone encounter Jose Renialdo II [facility] Start: 04-02-2023 End: 04-02-2023 ambulatory Vashti Amber Other [employer] Other Start: 04-02-2023 Telephone encounter Vashti Amber [facility] Start: 03-15-2023 End: 03-15-2023 ambulatory Jose Reinaldo II Other [employer] Other Start: 03-15-2023 Office outpatient vi sit 25 minutes Jose Cherry II [facility] Start: 02-26-2023 End: 02-26-2023 ambulatory Vashti Clark Other [employer] Other Start: 02-26-2023 Telephone encounter Vashti Clark [facility] Start: 02-08-2023 End: 02-08-2023 ambulatory Jose De Andaisle II Other [employer] Other Start: 02-08-2023 Office outpatient vi sit 25 minutes Jose Cherry II [facility] Start: 01-19-2023 End: 01-19-2023 ambulatory Vashti Clark Other [employer] Other Start: 01-19-2023 Telephone encounter Vashti Clark [facility] Start: 01-18-2023 End: 01-18-2023 ambulatory Vashti Clark Other [employer] Other Start: 01-18-2023 Office outpatient vi sit 15 minutes Vashti Clark [facility] Start: 01-17-2023 End: 01-17-2023 ambulatory Jose Cherry II Other [employer] Other Start: 01-17-2023 Telephone encounter Jose Peñale II [facility] Start: 12-13-2022 End: 12-13-2022 ambulatory Vashti Clark Other [employer] [facility] Other Start: 12-13-2022 Telephone encounter Jose De Andaisle II [facility] Start: 12-12-2022 End: 12-13-[address] VASHTI CLARK Facility: Start: 12-12-2022 Office outpatient vi sit 15 minutes Vashti Clark [facility] Start: 11-02-2022 End: 11-02-2022 ambulatory Jose Tequila Peñale II [employer] Other Start: 11-02-2022 Office outpatient vi sit 25 minutes Jose Cherry II [facility] Start: 10-10-2022 End: 10-10-2022 ambulatory Jose Cherry II Other [employer] Other Start: 10-10-2022 Telephone encounter Jose Cherry II [facility] Start: 06-23-2022 End: 06-23-2022 ambulatory MD Vashti Clark Work Phone: [facility] Work Phone: Start: 06-23-2022 End: 06-23-2022 Patient encounter procedure MD Vashti Clark Work Phone: [facility] Start: 04-13-2022 End: 04-13-2022 ambulatory Jose Cherry II Other [employer] Other Start: 04-13-2022 Telephone encounter Jose Cherry II [facility] Start: 03-06-2022 End: 03-06-2022 ambulatory Wayne Mccallum Other [employer] [facility] Other Start: 03-06-2022 Office outpatient vi sit 15 minutes Wayne Mccallum [facility] Start: 01-18-2022 (Post-Op) Post-Op Jose Cherry II [facility] Start: 01-18-2022 End: 01-18-2022 ambulatory Jose Cherry II Other [facility] [employer] Other Start: 12-07-2021 (Post-Op) Post-Op Jose Reinaldo II [facility] Start: 12-07-2021 End: 12-07-2021 ambulatory Jose Reinaldo II Other [employer] Other Start: 11-21-2021 Pre-procedure evaluation check Jose Cherry II Other [employer] Other Start: 11-16-2021 End: 11-16-2021 ambulatory Jose Cherry II Other [employer] [facility] Other Start: 11-16-2021 Office outpatient vi sit 15 minutes Jose Cherry II [facility] Start: 10-14-2021 (Prolonged) Prolonge d Services Jose Reinaldo II [facility] Start: 10-14-2021 End: 10-14-2021 ambulatory Jose Cherry II Other [facility] Other Start: 10-06-2021 End: 10-06-2021 ambulatory Jose Reinaldo II Other [employer] [facility] Other Start: 10-06-2021 Office outpatient vi sit 25 minutes Jose De Andaisle II [facility] Start: 09-13-2021 End: 09-13-2021 ambulatory Jose Cherry II Other [employer] [facility] Other Start: 09-13-2021 Office outpatient vi sit 25 minutes Wayne Mccallum [facility] Start: 09-13-2021 Telephone encounter Jose De Andaisle II [facility] Start: 08-09-2021 End: 08-09-2021 ambulatory Wayne Mccallum Other [facility] Other Start: 08-09-2021 Telephone encounter Wayne Mccallum [facility] Start: 07-28-2021 End: 07-28-2021 ambulatory Wayne Mccallum Other [employer] Other Start: 07-28-2021 Office outpatient vi sit 15 minutes Wayne Mccallum [facility] Start: 06-27-2021 Adult health examination Jose De Andaisle II Other [employer] Other Start: 05-12-2021 Office outpatient vi sit 15 minutes Wayne Mccallum [facility] [place] [facility] [place] Procedures Date Procedure Procedure Detail Performing [...] Activity Detail Author Start: 10-15-2023 Patient referral [facility] Work Phone: Patient referral [facility] Work Phone: Immunizations Immunization Date Immunization Notes Care Provider Fa [facility] 05-29-2023 influenza virus vaccine, unspecified formulation [facility] 05-29-2023 influenza, high dose seasonal, preservative-free Vashti Clark Other [employer] Other 04-11-2021 COVID-19 mRNA Comirnaty (Pfizer) MD Vashti Clark Work Phone: [facility] 09-07-2020 COVID-19 mRNA Comirnaty (Pfizer) MD Vashti Clark Work Phone: [facility] 08-17-2020 COVID-19 mRNA Comirnatwinter (Pfizer) MD Vashti Clark Work Phone: [facility] 05-24-2020 Kenalog -40 mg Wayne Mccallum Other [employer] [facility] Other 03-31-2020 influenza virus vaccine, split virus (incl. purified surface antigen) Jose Najera II Other [facility] Other 03-31-2020 influenza virus vaccine, unspecified formulation [facility] 08-11-2019 Kenalog -40 mg Wayne Felter Other [employer] [facility] Other 11-04-2018 Kenalog -40 mg Wayne Felter Other [employer] [facility] Other 03-19-2018 Supartz Wayne Felter Other [employer] [facility] Other 03-12-2018 Theraputic Injection Wayne Payneer Other [employer] [facility] Other 03-05-2018 Supartz Wayne Felter Other [employer] [facility] Other 02-26-2018 Supartz Wayne Felter Other [facility] Other 02-19-2018 Supartz Wayne Felter Other [facility] Other 11-27-2017 Kenalog -40 mg Wayne Felter Other [employer] [facility] Other 05-31-2016 influenza virus vaccine, split virus (incl. purified surface antigen) Jose Peñale II Other [facility] Other 05-31-2016 influenza virus vaccine, unspecified formulation [facility] 05-31-2016 pneumococcal polysaccharide vaccine, 23 valent Jose Cherry II Other [facility] Payers Date Payer Category Payer Medicare 2023 Unknown 2022 Self-pay [id number] 1961 Medicare [id number] 2.1 [id number] 1961 Unknown [id number] 2.1 [id number] 1950 Unknown [id number] 2.16.84 [id number] 1950 Unknown [id number] 2.16.840 .[id number] 1950 Unknown [id number] 2.16.840 .[id number] 1950 Unknown [id number] 2.16. [id number] 1950 Unknown [id number] 2.16. [id number] 1950 Unknown [id number] 2.16. [id number] 1950 Unknown [id number] 2.16. [id number] Unknown Karen BC/BS [id number] Unknown [id number] 2.16.8 [id number] Unknown [id number] 2.16.8 [id number] Social History Date Type Detail Facility Unknown if ever smoked [employer] Other Sex Assigned At Sex Assigned At Bir th [employer] [facility] Other Start: 10-26-2021 End: 10-26-2021 Tobacco smoking status NHIS Never smoked tobacco (finding) [facility] Start: 1950 Sex Assigned At Female F [facility] Medical Equipment Procedure Code Equipment Code Equipment Origin al Text Equipment Identifier Dates Arthroplasty, knee, total, minimally invasive Orthopaedic cement, non-medicated [id number] FDA Start: 10-24-2021 Arthroplasty, knee, total, minimally invasive Uncoated knee femur prosthesis, metallic ()[id number] FDA Start: 10-24-2021 Arthroplasty, knee, total, minimally invasive Tibial insert ()[id number] FDA Start: 10-24-2021 Arthroplasty, knee, total, minimally invasive Polyethylene patella prosthesis ()[id number] FDA Start: 10-24-2021 Arthroplasty, knee, total, minimally invasive Knee stem ()[id number] FDA Start: 10-24-2021 Arthroplasty, knee, total, minimally invasive Uncoated knee tibia prosthesis, metallic ()[id number] FDA Start: 10-24-2021 Clinical Notes 05-12-2021 to [...] Aug, Lower extremity edema (ICD-10 - R60.0) [facility] Other 02-01-2024 Evaluation note* Encounter Date Diagnosis Assessment Notes Treatment Notes Treatment Clinical Notes Aug, Leg edema, right (ICD-10 - R60.0) Check US today, discussed other possibilities but r/o DVT first. [employer] Other 12-19-2023 Evaluation note* Encounter Date Diagnosis Assessment Notes Treatment Notes Treatment Clinical Notes Jun, Lumbar pain (ICD-10 - M54.50) [employer] [facility] Other 11-27-2023 Evaluation note* Encounter Date Diagnosis Assessment Notes Treatment Notes Treatment Clinical Notes May, DDD (degenerative disc disease), lumbar (ICD-10 - M51.36) [employer] [facility] Other 11-14-2023 Evaluation note* Encounter Date Diagnosis Assessment Notes Treatment Notes Treatment Clinical Notes May, Peripheral polyneuropathy (ICD-10 - G62.9) Requests labs to r/o metabolic causes. May, Lumbar pain (ICD-10 - M54.50) Chronic lumbar pain. Agrees to start w xray. May, Paronychia, toe, lef t (ICD-10 - L03.032) Pt requests antibiotic at end of visit. Keep foot clean and dry. [employer] [facility] Other 08-31-2023 Evaluation note* Encounter Date Diagnosis [...] wedding planned the end of August 2023. [employer] [facility] Other 07-27-2023 Evaluation note* Encounter Date Diagnosis [...] it is not something that I prescribed. [employer] [facility] Other 07-06-2023 Evaluation note* Encounter Date Diagnosis Assessment Notes Treatment Notes Treatment Clinical Notes Jan, Easy bruisability (ICD-10 - R23.3) Pt will get labs today. Discussed possible link w the frequent NSAIDs Jan, Essential (primary) hypertension (ICD-10 - I10) Due for labs. Possible elevated glucose - nonfasting, had steroid pills and injections due to foot issues. She is seeing podiatry for plantar fasciitis. [facility] Other 07-06-2023 Evaluation note* Encounter Date Diagnosis [...] symptoms. Any developing patterns. Stay well hydrated. [employer] [facility] Other 05-31-2023 NotePROCEDURE: XR FOOT LT MIN [...] Electronically authenticated by: TIM TORREZ Date: 2022-12-13 08:39[facility]05-30-2023 Evaluation note* Encounter Date Diagnosis Assessment Notes Treatment Notes Treatment Clinical Notes November, Left foot pain (ICD-10 - M79.672) Discussed primary concern of stress fracture. Pt agrees to xray. Reviewed ortho notes. She is to followup there prn. [employer] [facility] Other 2023 Evaluation note* Encounter Date Diagnosis Assessment Notes Treatment Notes Treatment Clinical Notes Oct, History of total right knee replacement (ICD-10 - Z96.651) Oct, Primary osteoarthritis of both knees (ICD-10 - M17.0) Oct, Other [facility] at [facility] on 10/24/2021 Happy with surgical result Follow [...] as needed basis for the left knee. [employer] [facility] Other 09-29-2022 Evaluation note* Encounter Date Diagnosis Assessment Notes Treatment Notes Treatment Clinical Notes Mar, Primary osteoarthritis of both knees (ICD-10 - M17.0) [facility] Other 08-22-2022 Evaluation note* Encounter Date Diagnosis [...] note writ ten by Richar Kruger LPN, [employer]. Edited and approved by Dr. Wayne Mccallum MD. [facility] Other 07-06-2022 Evaluation note* Encounter Date Diagnosis Assessment Notes Treatment Notes Treatment Clinical Notes Jan, Primary osteoarthritis of both knees (ICD-10 - M17.0) Jan, Aftercare following joint replacement surgery (ICD-10 - Z47.1) Jan, History of total right knee replacement (ICD-10 - Z96.651) Jan, Other [facility] TKA at [facility] on 10/24/2021 Doing well Discussed post-op dental prophylaxis. Shared decision made to continue prophylactic antibiotics indefinitely. Follow-up at 1 year post-op for repeat examination and 2 view x-rays of the right knee. Patient instructed to call with any questions or concerns. [facility] Other 05-25-2022 Evaluation note* Encounter Date Diagnosis Assessment Notes Treatment Notes Treatment Clinical Notes November, Primary osteoarthritis of both knees (ICD-10 - M17.0) November, Aftercare following joint replacement surgery (ICD-10 - Z47.1) November, History of total right knee replacement (ICD-10 - Z96.651) November, Other [facility]KA at [facility] on 10/24/2021 Doing well Patient may continue activities as tolerated. Continue PT as recommended. Continue taking [id number] anti-inflammatori es as needed for assistance with swelling and pain associated with the operative extremity. Follow-up in 6 weeks for repeat examination and long standing x-rays. [facility] Other 05-04-2022 Evaluation note* Encounter Date Diagnosis [...] for 3 views of the right knee. [facility] Other 04-01-2022 Evaluation note* Encounter Date Diagnosis [...] patient could proceed with surgery safely. The [employer] was vital for surgery timing and scheduling [...] plans. Prolonged services time spent: 37 minutes [facility] Other 04-01-2022 History general Narrative - Reported* Type Description Date Medical History hypertension Surgical History bilateral SANDRO Surgical History abdominal surgery Surgical History RT TKR 10/2021 Hospitalization History see above [facility] Other 04-01-2022 History general Narrative - Reported* Type Description Date Medical History hypertension Surgical History bilateral SANDRO Surgical History abdominal surgery Surgical History RT TKR 10/2021 Surgical History COLONOSCOPY Hospitalization History see above [facility] Other 04-01-2022 History general Narrative - Reported* Type Description Date Medical History hypertension Medical History Frozen shoulder Medical History Lumbar pain Surgical History bilateral SANDRO Surgical History abdominal surgery Surgical History RT TKR 10/2021 Surgical History COLONOSCOPY Hospitalization History see above [facility] Other 03-24-2022 Evaluation note* Encounter Date Diagnosis [...] rehab stay. Joints Meeting Checklist - Pharmacy: [facility] to bed - Approach/Technique: ZULLY - [...] elected to proceed with the above surgery. [facility] Other 03-01-2022 Evaluation note* Encounter Date Diagnosis [...] note writ ten by Richar Kruger LPN, [employer]. Edited and approved by Dr. Wayne Mccallum MD. [facility] Other 03-01-2022 Evaluation note* Encounter Date Diagnosis Assessment Notes Treatment Notes Treatment Clinical Notes Sep, Primary osteoarthritis of both knees (ICD-10 - M17.0) [facility] Other 01-25-2022 Evaluation note* Encounter Date Diagnosis Assessment Notes Treatment Notes Treatment Clinical Notes Jul, Primary osteoarthritis of both knees (ICD-10 - M17.0) [facility] Other 01-13-2022 Evaluation note* Encounter Date Diagnosis [...] Other Above note writ ten by Richar Krguer LPN, [employer]. Edited and approved by Dr. Wayne Mccallum MD. [facility] Other 10-28-2021 Evaluation note* Encounter Date Diagnosis [...] note writ ten by Nissa Murillo CMA, [employer]. Edited and approved by Dr. Wayne Mccallum MD. [employer] [facility] Other Evaluation noteNo assessment information available [facility] Work Phone: Evaluation noteNo InformationNortDoyl[facility] [employer] Other Evaluation note* Diagnosis Onset Date Resolution Status Right femoral vein DVT acute [facility] Work Phone: Evaluation note* Diagnosis Onset Date Resolution Status Essential (primary) hypertension acute Knee arthropathy acute Right femoral vein DVT acute PAD (peripheral artery disease) acute Primary osteoarthritis of left knee acute [facility] Work Phone: Evaluation note* Diagnosis Onset Date Resolution Status Essential (primary) hypertension acute Knee arthropathy acute Right femoral vein DVT acute PAD (peripheral artery disease) acute Primary osteoarthritis of left knee acute PAD (peripheral artery disease) acute Venous ulcer of left leg acu te [facility] Work Phone: Evaluation note* Diagnosis Onset Date Resolution Status Primary osteoarthritis of left knee acute PAD (peripheral artery disease) acute Venous ulcer of left leg acu te Primary osteoarthritis of left knee acute [facility] Work Phone: History general Narrative - Reported* Type Description Date Medical History hypertension Surgical History bilateral SANDRO Surgical History abdominal surgery [facility] [employer] Other Hospital Discharge instructionsAmbulatory Orders* Referral to Wound Care Time Frame: 10/15/23, Location: None Selected [facility] Work Phone: Family History Relationship Condition [...] Diagnosis 1 Lumbar pain (M54.50) Referral Organization [facility] Referring Provider First Name Ny Referring Provider Last Name Jin Referring Provider Specialty Nurse Pract itioner Referred Organization [facility] t [facility] [place] Referred Provider Wayne Mccallum Referred Address [address] [place],[address] Referred Provider Specialty Pain Medicin e Referral Priority Routine General Notes Eryn Reynoso 02:02:11 PM >received today, patient previously seen by Dr Mccallum (last visit Feb 2022) and is still considered established. sending p2p at this time for scheduling. Reason evaluate and t reat for peripheral vascular disease Diagnosis 1 Peripheral vascular disease (I73.9) Referral Organization [facility] Referring Provider First Name Ny Referring Provider Last Name Annabel Referring Provider Specialty Nurse Pract itioner Referred Organization [facility] Vascular Surge ry Referred Provider Willy Yancey Referred Address [address],[place], [place],[address] Referred Provider Specialty Vascular Samantha piotr Referral Priority Routine General Notes Eryn Reynoso 02:08:33 PM >received today, p2p sent for scheduling Reason *Waiting for appt chronic lumbar - recent MRI Diagnosis 1 Lumbar pain (M54.50) Referral Organization [facility] Referring Provider First Name Vashti Referring Provider Last Name Amber Referring Provider Specialty Family Medi cine Referred Organization [facility] Referred Provider Jose Clark Referred Address [address] ,[place], [place],[address] Referred Provider Specialty Neurological Surgery Referral Priority [...] InformationNo InformationH & P RIGHT TOTAL KNEE [id number] WK WOUND CHECKRecheck Right Knee6 WK RECHECKLT [...] and content) DATE CREATED AUTHOR 12/22/2022 [facility] DATE CREATED AUTHOR AUTHOR'S ORGANIZ ATION 06/20/2023 [facility] DATE CREATED AUTHOR AUTHOR'S ORGANIZ ATION 09/16/2023 [facility] DATE CREATED AUTHOR AUTHOR'S ORGANIZ ATION 11/25/2023 [facility] FOR RECORDS PERTAINING TO PATIENTS WHO [...] BE BASED ON THE PRIMARY CLINICAL RECORDS. [employer] provides no warranty or guarantee of the accuracy or completeness of information in this document.
== END 2024-04-25 12:59 | disposition home or self-care (01) ==
LOC: CT 12:58
PROVIDERS: Visit Provider Orthopaedic Surgery
DX: S82.142D Displaced bicondylar fracture of left tibia, subsequent encounter for closed fracture with routine healing (principal)
CPT/HCPCS: 73700

== ENCOUNTER 2024-11-05 16:16 | Outpatient (OUT) | payer MEDICARE, SELFPAY ==
--- NOTE | 2024-11-05 | XR_ITS ---
The [address] [address] Patient Name: LINDA BARBOSA MRN: [id number] date: 1950 Sex: F Assigned Patient Location: LAB Current Patient Location: LAB Accession/Order Number: [id number] Exam Date: 11/06/2024 13:01 Report Date: 11/06/2024 13:01 At the request of: LUIS ALBERTO MITCHELL Procedure: XR chest 2V Chest 2 views CLINICAL HISTORY: encounter for periprocudusral cardiovascular exam Z01.810 COMPARISON: None FINDINGS: Heart normal size. Lungs are clear. No free air. XR/XR chest 2V IMPRESSION: NO ACUTE CARDIOPULMONARY ABNORMALITY. Impression dictated by: Bianca Jefferson Jr.OEdgard11/06/2024 1:01 PM Dictation Location: [place] [address] Electronically authenticated by: [id number] Y Date: 11/06/2024 13:01
[2024-11-05 16:40] LABS: Basophils Percent Auto 0.4 % (0.2-2.0); Eosinophils Absolute Auto 0.1 10^3/uL (0.0-0.7); Hematocrit 40.2 % (36.0-48.0); Hemoglobin 13.6 g/dL (12.0-16.0); Immature Granulocytes Abs Auto 0.02 10^3/uL (0.00-0.03); Immature Granulocytes Pct Auto 0.3 % (0.0-0.5); Lymphocytes Absolute Auto 1.6 10^3/uL (1.2-3.8); Lymphocytes Percent Auto 23.2 % (20.5-60.0); Mean Corpuscular HGB Conc 33.8 g/dL (29.9-35.2); Mean Corpuscular Hemoglobin 30.8 pg (26.7-34.0); Mean Corpuscular Volume 91.2 fL (81.0-99.0); Mean Platelet Volume 10.9 fL (9.5-13.5); Monocytes Absolute Auto 0.4 10^3/uL (0.3-0.8); Monocytes Percent Auto 5.9 % (1.7-12.0); Neutrophils Absolute Auto 4.9 10^3/uL (1.4-6.5); Neutrophils Percent Auto 69.2 % (43.0-75.0); Platelet Count 188 10^3/uL (150-450); Red Blood Count 4.41 10^6/uL (4.20-5.40); Red Cell Distribution Width 14.6 % (11.0-15.0); White Blood Count 7.1 10^3/uL (4.0-11.0)
[2024-11-05 16:56] LABS: INR 1.08; Partial Thromboplastin Time 29.2 sec (22.3-36.2); Prothrombin Time 11.4 sec (9.0-11.6)
[2024-11-05 17:01] LABS: Alanine Aminotransferase 33 U/L (14-59); Albumin Globulin Ratio 1.2; Albumin Level 3.5 g/dL (3.4-5.0); Alkaline Phosphatase 85 U/L (46-116); Aspartate Amino Transferase 22 U/L (15-37); BUN Creatinine Ratio 24.3; Bilirubin Total 0.6 mg/dL (0.2-1.0); Calcium 9.7 mg/dL (8.5-10.1); Carbon Dioxide 25.1 mmol/L (21.0-32.0); Chloride 106 mmol/L (98-107); Estimated GFR (African America 44 (>=60 mL/min/1.73m^2); Estimated GFR (Non-African Ame 37 (>=60 mL/min/1.73m^2); Globulin 2.9 g/dL; Glucose 106 mg/dL (74-106); Potassium 4.1 mmol/L (3.5-5.1); Sodium 141 mmol/L (136-145); Total Protein 6.4 g/dL (6.4-8.2)
== END 2024-11-05 16:17 | disposition home or self-care (01) ==
LOC: LAB 16:18
PROVIDERS: Visit Provider Orthopaedic Surgery
DX: Z01.810 Encounter for preprocedural cardiovascular examination (principal); Z01.818 Encounter for other preprocedural examination; Z22.322 Carrier or suspected carrier of Methicillin resistant Staphylococcus aureus
CPT/HCPCS: 36415; 71046; 80053; 85025; 85610; 85730; 87081

== ENCOUNTER 2024-11-06 16:32 | Outpatient (REF) | payer MEDICARE, SELFPAY ==
[2024-11-06 17:22] LABS: Bilirubin Urine NEGATIVE (NEGATIVE); Blood Urine TRACE-I (NEGATIVE); Clarity Urine CLEAR (CLEAR); Color Urine LT. YELLOW (YELLOW); Glucose Urine UA NEGATIVE (NEGATIVE); Ketones Urine NEGATIVE (NEGATIVE); Leukocyte Esterase Urine NEGATIVE (NEGATIVE); Nitrite Urine NEGATIVE (NEGATIVE); Protein Urine NEGATIVE (NEG/TRACE); Urobilinogen Urine 0.2 EU/dL (0.2-1.0)
[2024-11-06 17:26] LABS: Urine Microscopic Indicated YES
[2024-11-06 18:10] LABS: Bacteria Urine MODERATE #/HPF (NONE SEEN); Crystals Seen? None Seen #/HPF (None Seen); Mucus Urine NONE SEEN (NONE SEEN); RBC Urine 0-2 #/HPF (0-2); Squamous Epithelial Cell Urine FEW #/LPF (NONE/RARE)
[2024-11-06 18:11] LABS: Cast Seen? NONE SEEN #/LPF (NONE SEEN); Urine Culture Indicated YES-FRMC
== END 2024-11-06 16:33 | disposition home or self-care (01) ==
LOC: LAB 16:32
PROVIDERS: Visit Provider Orthopaedic Surgery
DX: Z01.810 Encounter for preprocedural cardiovascular examination (principal); Z01.812 Encounter for preprocedural laboratory examination; Z01.818 Encounter for other preprocedural examination; R82.998 Other abnormal findings in urine
CPT/HCPCS: 81001; 87086

== ENCOUNTER 2024-12-23 15:48 | Outpatient (RCR) | payer MEDICARE, SELFPAY | END 2025-02-21 07:10 | disposition home or self-care (01) | LOC: PT 15:48 | PROVIDERS: Visit Provider Orthopaedic Surgery | DX: M17.12 Unilateral primary osteoarthritis, left knee (principal); M25.562 Pain in left knee | CPT/HCPCS: 97110; 97112; 97161 ==

== ENCOUNTER 2025-03-18 11:21 | Outpatient (OUT) | payer MEDICARE, SELFPAY ==
--- NOTE | 2025-03-18 11:24 | MM_ITS ---
Patient Name: LINDA BARBOSA MR#: [id number] : 1950 Exam Date: 03/18/2025 Ordering Doctor: DR KATELYNN CLARK M.D. RADIOLOGY REPORT PROCEDURE: MM TOMOSYNTHESIS SCREENING BI COMPARISON: MG MAMM SCREEN NAVJOT W CAD, 04/04/2018. MG MAMM NAVJOT SCRN W CAD DIG, 01/12/2016. MAMMO NAVJOT SCREEN, 06/04/2007. MAMMO NAVJOT SCREEN, 03/26/2006. INDICATIONS: Screening Calculator Name NCI Breast Cancer Risk Assessment Tool 5 Year Breast Cancer Risk 1.40% Lifetime Breast Cancer Risk 2.90% Personal Breast Cancer No Personal Ovarian Cancer No Treatments None Family Cancers Sister with non hodgekins lymphoma cancer at age 30. LOCATION: [facility] BREAST COMPOSITION: The breasts are almost entirely fatty. FINDINGS: DIAGNOSTIC CATEGORY 2--BENIGN FINDING. NO CHANGE FROM COMPARISON. RIGHT BREAST: No significant suspicious finding. No significant suspicious finding. Benign-appearing calcifications present. Lymph nodes are along the chest wall. LEFT BREAST: No significant suspicious finding. Benign-appearing calcifications present. Lymph nodes are along the chest wall. RECOMMENDATIONS: ROUTINE MAMMOGRAM AND CLINICAL EVALUATION IN 12 MONTHS. Dictated by: Noam Frias MD on 03/18/2025 at 15:09 Approved by: Noam Frias MD on 03/18/2025 at 15:11
--- OUTSIDE RECORDS SUMMARY | 2025-03-18 15:28 | XMS_ITS | CCD ---
Author Organization [facility] CliniSyri Care Team Providers Care Passenger Service Representative Name Role Phone Wayne Mccallum Unavailable Jose Najera II Unavailable MD Katelynn Clark Primary Care Provider MD Jose Najera II Attending Provider DR KATELYNN CLARK Attending Unavailable AMBER, DR KATELYNN Porter Primary Care Unavailable DR KATELYNN CLARK Admitting Unavailable SHAN, DR TIM Veronica Consulting Unavailable AMBER, DR KATELYNN Porter Consulting Unavailable Katelynn Clark Unavailable ANABELLA STEWART Attending Unavailable ANABELLA STEWART Attending Unavailable Ny Jin Unavailable MD Katelynn Clark Primary Care Provider MD Willy Yancey Attending Provider Katelynn Clark MD Primary Care Provider NON STAFF Attending Provider Unavailable Unavailable Primary Care Provider UnavailVICKEY Kellogg Referring Unavailable VICKEY MATA Attending Unavailable Tod Zacarias MD Attending Unavailable Roberto Riojas Consulting Unavailable Katelynn Clark MD Primary Care Unava ilable Linnea MELENDEZ, Bella L Admitting Unavailable Karina Leiva Consulting Unavailable Matti Hernandez MD Consulting Unavai rogelio Yarbrough PA-C, Bella L Consulting Unavailable Luis Alberto Perez MD Attending Unavailable Katelynn Clark MD Primary Care Unava ilable NON STAFF Attending Unavailable NON STAFF Admitting Unavailable LUIS ALBERTO PEREZ Referring Unavailable LUIS ALBERTO PEREZ Referring Unavailable VICKEY MATA Attending Unavailable VICKEY MATA Attending Unavailable Katelynn Clark MD Primary Care Provider Katelynn Clark MD Attending Provider Allergies Allergy Classification Reported Allergen(s) Allergy Type Date of Onset Reaction(s) Facility (6 sources) patient allergy list reviewed by nurse or physicia Propensity to adverse reactions 5 Comment:Done HOLLR Other (6 sources) Allergies Reconciled Propensity to adverse reactions Unknown HOLLR Other Medications Current Medications Medication Drug Class(es) Dates Sig (Normalized) Sig (Original) acetaminophen 500 mg oral tablet (20 sources) Start: 10-31-2021 take 1 tablet by mouth four times daily as needed for pain Acetaminophen 500 mg Tablet Active 500 MG PO Four times daily as needed for Pain 120 30 October 31, 2021 12:00am Complies with drug therapy Start: 10-25-2021 End: 10-31-2021 take 1000 mg by mouth every eight hours Acetaminophen Discontinued 1000 MG PO Q8H October 25, 2021 12:00am October 31, 2021 2:03pm Start: 10-06-2021 End: 10-31-2021 take 2 tablets by mouth every eight hours Acetaminophen 500 mg Tablet Discontinued 1000 MG PO Q8H October 25, 2021 12:00am October 31, 2021 2:03pm take 1 capsule by [facility] every six hours as needed acetaminophen 500 mg capsule Take 1 capsule (500 mg total) by mouth every 6 (six) hours as needed. Active amoxicillin 500 mg oral capsule (7 [...] days Active apixaban 5 mg oral tablet (20 sources) Factor Xa Inhibitor Start: 01-20-20 take 1 tablet by mouth twice daily Apixaban (Eliquis) 5 mg tablet Active 0 .ROUTE .COMPLEX 60 January 19, 2025 4:32pm Take 1 tablet by mouth twice daily Complies with drug therapy Start: 08-30-2023 End: 01-19-2025 take 1 tablet by mouth twice daily Apixaban (Eliquis) 5 mg tablet Discontinued 5 MG PO Twice daily 56 November 03, 2024 3:00pm January 19, 2025 4:32pm diclofenac potassium 50 mg oral tablet (20 sources) Nonsteroidal Anti-inflammatory Drug Start: 03-09-2025 take 1 tablet by mouth twice daily Diclofenac Potassium 50 mg tablet Active 50 MG PO Twice daily 180 March 09, 2025 12:00am Complies with drug therapy Start: 10-31-2024 End: 11-03-2024 apply 2 g topically four times daily Diclofenac Sodium 1 % gel Discontinued 2 GM TOPICAL Four times daily October 31, 2024 12:00am November 03, 2024 1:28pm apply to single elbow, wrist or hand; for hand includes palm/fingers/back of hand Start: 10-31-2024 End: 11-03-2024 apply 2 g topically four times daily Diclofenac Sodium 1 % gel Discontinued 2 GM TOPICAL Four times daily October 31, 2024 12:00am November 03, 2024 1:28pm apply to single elbow, wrist or hand; for hand includes palm/fingers/back of hand Start: 08-29-2023 take 1 tablet by therese once daily as needed diclofenac (VOLTAREN) 75 mg EC tablet Take 1 tablet (75 mg total) by mouth daily as needed. 08/29/2023 Active Start: 08-29-2023 End: 06-07-2024 take 1 tablet by mouth twice daily Diclofenac Sodium 75 mg tablet,delayed release (DR/EC) Discontinued 75 MG PO Twice daily December 13, 2023 12:00am December 13, 2023 2:58pm Start: 02-08-2023 Voltaren 1 % a pply 1-2 grams to affected area Externally 4x's a day for 30 days Jan, Active Start: 02-08-2023 Voltaren 1 % a pply 1-2 grams to affected area Externally 4x's a day for 30 days Jan, Active Start: 11-27-2017 End: 10-25-2021 take 1 tablet by mouth twice daily Diclofenac Sodium 75 mg tablet,delayed release (DR/EC) Discontinued 75 MG PO Twice daily October 10, 2021 12:00am October 25, 2021 2:10pm docusate sodium 50 mg / sennosides, [facility] 8.6 mg oral tablet (3 sources) Start: 10-06-2021 take 2 tablets by mouth every twenty-four hours Senokot S 8.6-50 MG 2 tablets Orally Once a day for 30 day(s) MED TO BED UPON DISCHARGE DOS:10/24/2021 Sep, Active loperamide hydrochloride 2 mg oral tablet (2 sources) Opioid Agonist take 1 tablet by mouth four times daily as needed for diarrhea loperamide (IMODIUM A-D) 2 mg tablet Take 1 tablet (2 mg total) by mouth 4 (four) times a day as needed for diarrhea. Active ondansetron 8 mg oral tablet (3 sources) Serotonin-3 Receptor Antagonist Start: 10-06-2021 take 1 tablet by mouth three times daily as needed for nausea Ondansetron HCl 8 MG 1 tablet as needed for nausea Orally TID for 10 days MED TO BED UPON DISCHARGE DOS:10/24/2021 Sep, Active traMADol hydrochloride 50 mg oral tablet (20 sources) Opioid Agonist Start: 12-26-2023 take 1 tablet by mouth every six hours as needed traMADoL (ULTRAM) 50 mg tablet Take 1 tablet (50 mg total) by mouth every 6 (six) hours as needed. 12/26/2023 Active Start: 10-25-2021 End: 10-31-2021 take 1 tablet by mouth every four hours as needed for pain Tramadol 50 mg Tablet Discontinued 50 MG PO Q4H as needed for Pain Scale 1 - 5 October 25, 2021 12:00am October 31, 2021 2:03pm Start: 10-06-2021 take 1 tablet by therese th every six hours as needed for pain traMADol HCl 50 MG 1 tablet as needed for pain Orally every 6 hrs for 10 days MED TO BED UPON DISCHARGE DOS:10/24/2021 Sep, Active Start: 07-28-2021 End: 10-24-2021 take 1 tablet by mouth twice daily as needed for pain Tramadol 50 mg tablet Discontinued 50 MG PO Twice daily as needed for Pain October 10, 2021 12:00am October 24, 2021 9:50am Completed/Discontinued Medications Medication Drug Class(es) Dates Sig (Normalized) Sig (Original) ascorbic acid 500 mg oral tablet (18 sources) Vitamin C Start: 10-25-2021 End: 10-15-2023 take 1 tablet by mouth twice daily at mealtime Ascorbic Acid (Vitamin C) (Vitamin C) 500 mg Tablet Discontinued 500 MG PO Twice daily with meals 60 October 31, 2021 12:00am October 15, 2023 11:28am aspirin 81 mg delayed release oral tablet (20 sources) Platelet Aggregation Inhibitor, Nonsteroidal Anti-inflammatory Drug Start: 10-25-2021 End: 10-15-2023 take 1 tablet by mouth twice daily Aspirin 81 mg Tablet,Delayed Release (Dr/Ec) Discontinued 81 MG PO Twice daily 40 October 31, 2021 12:00am October 15, 2023 11:28am Start: 10-06-2021 take 1 tablet by therese th twice daily Aspirin 81 MG 1 tablet Orally BID for 35 days MED TO BED UPON DISCHARGE DOS:10/24/2021 24 Sep, 2021 Active atorvastatin 40 mg oral tablet (15 sources) HMG-CoA Reductase Inhibitor Start: 09-16-2023 End: 03-09-2025 take 1 tablet by mouth once daily Atorvastatin 40 mg tablet Discontinued 40 MG PO Daily July 13, 2024 1:00am March 09, 2025 1:36pm calcium carbonate 1250 mg / cholecalciferol 200 unt oral tablet (2 sources) Vitamin D Start: 10-25-2021 End: 10-15-2023 take 1 tablet by mouth twice daily Calcium Carbonate-Vitamin D3 (Oyster Shell Calcium-Vit D3) 500 mg-5 mcg (200 unit) Tablet Discontinued 1 TAB PO Twice daily 60 October 31, 2021 12:00am October 15, 2023 11:28am Calcium Carbonate-Vitamin D3 (Oyster Shell Calcium-Vit D3) 500 mg-5 mcg (200 unit) Tablet (16 sources) Start: 10-31-2021 End: 10-15-2023 take 1 tablet by mouth twice daily Calcium Carbonate-Vitamin D3 (Oyster Shell Calcium-Vit D3) 500 mg-5 mcg (200 unit) Tablet Discontinued 1 TAB PO Twice daily 60 October 30, 2021 11:00pm October 15, 2023 10:28am Start: 10-31-2021 End: 10-15-2023 take 1 tablet [...] 2021 1:03pm cefadroxil 500 mg oral capsule (12 sources) Cephalosporin Antibacterial Start: 10-25-2021 End: 10-31-2021 take 1 capsule by mouth twice daily Cefadroxil 500 mg Capsule Discontinued 500 MG PO Twice daily October 25, 2021 12:00am October 31, 2021 2:03pm Start: 10-06-2021 take 1 capsule by mo [facility] every twelve hours Cefadroxil 500 MG 1 tablet Orally every 12 hrs for 7 days MED TO BED UPON DISCHARGE DOS:10/24/2021 24 Sep, 2021 Active celecoxib 200 mg oral capsule (20 sources) Nonsteroidal Anti-inflammatory Drug Start: 10-06-2021 End: 12-13-2023 take 1 capsule by mouth twice daily Celecoxib 200 mg Capsule Discontinued 200 MG PO Twice daily October 25, 2021 12:00am October 31, 2021 2:03pm cephalexin 500 mg oral capsule (6 sources) Cephalosporin Antibacterial Start: 10-15-2023 End: 05-30-2024 take 1 capsule by mouth three times daily Cephalexin 500 mg capsule Discontinued 500 MG PO Three times daily 02 02October 15, 2023 12:00am May 30, 2024 12:01pm ciprofloxacin 3 mg/ml ophthalmic solution (1 source) Quinolone Antimicrobial Start: 12-30-2024 End: 03-09-2025 Ciprofloxacin Hcl 0.3 % drops Discontinued 0 OPHTHALMIC .COMPLEX December 30, 2024 12:00am March 09, 2025 1:36pm put 1-2 drps in affected eye(s) every 2hr up to 8 times/day x2days; then 4 times/day x5days Eye-Both doxycycline hyclate 100 mg oral capsule (1 source) Tetracycline-class Drug Start: 07-13-2024 End: 03-09-2025 take 1 capsule by mouth twice daily Doxycycline Hyclate 100 mg capsule Discontinued 100 MG PO Twice daily 26 01July 13, 2024 1:00am March 09, 2025 1:56pm famotidine 20 mg oral tablet (20 sources) Histamine-2 Receptor Antagonist Start: 10-10-2021 End: 05-30-2024 take 1 tablet by mouth once daily Famotidine 20 mg Tablet Discontinued 20 MG PO Daily October 31, 2021 12:00am April 14, 2024 8:19am furosemide 40 mg oral tablet (20 sources) Loop Diuretic Start: 04-14-2024 End: 03-09-2025 take 1 tablet by mouth once daily Furosemide (Lasix) 40 mg tablet Discontinued 40 MG PO Daily July 01, 2024 1:06pm March 09, 2025 1:39pm take 1 tablet by mouth twice luis alberto ly furosemide (LASIX) 40 mg tablet Take 1 tablet (40 mg total) by mouth 2 (two) times a day. Active hyaluronate (20 sources) Start: 03-19-2018 Hilariaartz Mar Start: 03-05-2018 Hilariaartz Feb Start: 02-26-2018 Hilariaartz Feb Start: 02-19-2018 Supartz Feb hyoscyamine sulfate 0.125 mg disintegrating oral tablet (18 sources) Start: 10-31-2021 End: 11-03-2024 take 1 tablet by mouth four times daily as needed Hyoscyamine Sulfate (Anaspaz) 0.125 mg Tablet,Disintegrating Discontinued 0.125 MG PO Four times daily as needed for IBS 120 October 31, 2021 12:00am November 03, 2024 1:28pm Start: 10-10-2021 End: 10-31-2021 take 1 tablet by mouth four times daily as needed Hyoscyamine Sulfate 0.125 mg Tablet, Sublingual Discontinued 0.125 MG PO Four times daily as needed for IBS October 10, 2021 12:00am October 31, 2021 2:03pm melatonin 5 mg oral tablet (9 sources) Start: 10-31-2021 End: 10-15-2023 take 1 tablet by mouth once daily at bedtime as needed Melatonin 5 mg Tablet Discontinued 5 MG PO Daily at bedtime as needed for Insomnia October 31, 2021 12:00am October 15, 2023 11:29am 24 hr metoprolol succinate 100 mg extended release oral tablet (20 sources) beta-Adrenergic Alex Start: 08-29-2023 take 1 tablet by mouth every twenty-four hours in the morning metoprolol succinate XL (TOPROL XL) 100 mg 24 hr tablet Take 1 tablet (100 mg total) by mouth in the morning. 08/29/2023 Active Start: 08-29-2023 End: 03-09-2025 take 1 tablet by mouth once daily Metoprolol Succinate 100 mg tablet extended release 24 hr Discontinued 100 MG PO Daily July 13, 2024 1:00am March 09, 2025 1:36pm Start: 10-31-2021 End: 10-15-2023 take 1 tablet by mouth twice daily at mealtime Metoprolol Tartrate 100 mg tablet Discontinued 100 MG PO Twice daily August 29, 2023 1:00am October 15, 2023 11:29am FreeTextSi tablet with food Orally Twice a day; Note: Source Status: Taking; Refills: 2; Provider: Amber Porter Start: 10-10-2021 End: 10-31-2021 take 1 tablet by mouth once daily in the morning Metoprolol Tartrate 100 mg tablet Discontinued 100 MG PO Every morning October 10, 2021 12:00am October 31, 2021 2:03pm take 1 tablet by therese th every twenty-four hours Metoprolol Succinate ER 100 MG 1 tablet Orally Once a day for 90 days Active oxyCODONE hydrochloride 5 mg oral capsule (20 sources) Opioid Agonist Start: 12-01-2024 End: 12-30-2024 take 1 capsule by mouth every eight hours as needed for pain Oxycodone 5 mg capsule Discontinued 5 MG PO Every 8 hours as needed for pain 20 7 December 12, 2024 December 30, 2024 2:16pm Start: 10-31-2021 End: 10-15-2023 take 1 tablet by mouth four times daily as needed for pain Oxycodone 5 mg Tablet Discontinued 5 MG PO Four times daily as needed for Pain (Scale Score 7-10) 20 October 31, 2021 October 15, 2023 11:29am Start: 10-25-2021 End: 10-31-2021 take 1 tablet by mouth every four hours as needed for pain Oxycodone 5 mg Tablet Discontinued 5 MG PO Every 4 hours as needed for Pain Scale 6 - 10 October 25, 2021 October 31, 2021 2:03pm Start: 10-06-2021 take 1 tablet by therese th every four hours as needed for pain oxyCODONE HCl 5 MG 1 tablet as needed for pain Orally every 4 hrs for 10 days MED TO BED UPON DISCHARGE DOS:10/24/2021 24 Sep, 2021 Active polyethylene glycol 3350 39511 mg powder for oral solution (12 sources) Osmotic Laxative Start: 10-06-2021 End: 10-31-2021 Polyethylene Glycol 3350 (Miralax) 17 gram Powder In Packet Discontinued 17 GM PO Daily as needed for Constipation October 25, 2021 12:00am October 31, 2021 2:03pm microencapsulated potassium chloride 20 meq extended release oral tablet (19 sources) Start: 04-14-2024 End: 11-03-2024 Potassium Chloride (Klor-Con M20) 20 mEq tablet,ER particles/crystals Discontinued 20 MEQ PO Daily July 01, 2024 4:41pm November 03, 2024 1:08pm potassium chlori de (K-TAB,KLOR-CON) 10 MEQ CR tablet Take 1 tablet (10 mEq total) by mouth in the morning. Active raNITIdine 150 mg oral tablet (20 sources) Histamine-2 Receptor Antagonist Start: 08-29-2023 End: 10-15-2023 take 1 tablet by mouth once daily at bedtime Ranitidine Hcl 150 mg tablet Discontinued 150 MG PO Daily at bedtime August 29, 2023 1:00am October 15, 2023 11:30am take 1 tablet by therese th once daily at bedtime Zantac 150 MG 1 tablet at bedtime Orally Once a day prn Active Theraputic Injection (20 sources) Start: 03-12-2018 Theraputic Inj ection Feb, triamcinolone acetonide 40 mg/ml injectable suspension (20 sources) Corticosteroid Start: 06-23-2022 Kenalog-40 Feb, 120 mg Start: 03-06-2022 Kenalog-40 Feb, 40 mg Start: 05-24-2020 Kenalog -40 mg May, 40 mg Start: 08-11-2019 Kenalog -40 mg Jul, 40 mg Start: 11-04-2018 Kenalog -40 mg Oct, 40 mg Start: 11-27-2017 Kenalog -40 mg November, 40 mg 24 hr verapamil hydrochloride 180 mg extended release oral capsule (20 sources) Calcium Channel Alex Start: 07-13-2024 End: 03-09-2025 take 1 capsule by mouth once daily Verapamil 180 mg capsule,ext rel. pellets 24 hr Discontinued 180 MG PO Daily July 13, 2024 1:00am March 09, 2025 1:36pm Start: 09-27-2023 End: 02-02-2025 take 1 tablet by mouth once daily Verapamil 180 mg tablet extended release Active 0 .ROUTE .COMPLEX 90 February 02, 2025 11:37am Take 1 tablet by mouth once daily for 90 days Complies with drug therapy Start: 10-10-2021 End: 10-15-2023 take 1 tablet by mouth once daily Verapamil 180 mg tablet extended release Discontinued 180 MG PO Daily August 29, 2023 1:00am October 15, 2023 11:30am FreeTextSig: Take 1 tablet by mouth once daily; Note: Source Status: Taking; Refills: 1; Qty: 90 Tablet; Provider: Amber Porter Problems Active Problems Problem Classification Problem Date Documented Da te Episodic/Chronic Abdominal pain (6 sources) Generalized abdominal pain; Translations: [Generalized abdominal pain] Episodic Administrative/social admission (9 sources) Other reduced mobility; Translations: [Impaired mobility and activities of daily living] 10-26-2021 Episodic Comment on above: Problem List clean-u p per request of Phys. EHR Cmte Cardiac dysrhythmias (10 sources) Paroxysmal atrial fibrillation; Translations: [Paroxysmal atrial fibrillation] Onset: 11-14-2024 11-18-2024 Chronic Coagulation and hemorrhagic disorders (2 sources) Spontaneous ecchymoses Episodic Disorders of lipid metabolism (4 sources) Hyperlipidemia; Translations: [Hyperlipidemia, unspecified] Onset: 02-19-2025 Chronic Essential hypertension (20 sources) Hypertensive disorder; Translations: [Essential (primary) hypertension] Onset: 11-11-2014 10-24-2021 Chronic Comment on above: Problem List clean-u p per request of Phys. EHR Cmte Gangrene (5 sources) Critical lower limb ischemia ; Translations: [Atherosclerosis of [place] arteries of extremities with gangrene, left leg] Onset: 01-03-2024 01-03-2024 Chronic Immunizations and screening for infectious disease (6 sources) Vaccination given; Translations: [Encounter for immunization] Episodic Inflammation; infection of eye (except that caused by tuberculosis or sexually transmitteddisease) (2 sources) Conjunctivitis of left eye; Translations: [Unspecified conjunctivitis] 01-01-2025 Episodic Osteoarthritis (20 sources) Primary gonarthrosis, bilateral; Translations: [Bilateral primary osteoarthritis of knee] Onset: 05-12-2021 Resolved: 03-06-2022 Chronic Comment on above: Problem List clean-u p per request of Phys. EHR Cmte Other acquired deformities (3 sources) Lumbar spondylolisthesis; [...] of right artificial knee joint] 10-24-2021 Chronic Comment on above: Problem List clean-u p per request of Phys. EHR Cmte Other connective tissue disease (6 sources) Presence of right artificial knee joint Onset: 11-16-2021 Resolved: 01-18-2022 Chronic Other connective tissue disease (1 source) Presence of left artificial knee joint; Translations: [Presence of left artificial knee joint] Onset: 12-04-2024 Chronic Other connective tissue disease (5 sources) [...] not elsewhere classified] Chronic Other gastrointestinal disorders (9 sources) Irritable bowel syndrome; Translations: [Irritable bowel syndrome without diarrhea] 10-26-2021 Chronic Comment on above: Problem List clean-u p per request of Phys. EHR Cmte Other injuries and conditions due to external causes (6 sources) History of fall; Translations: [History of falling] Episodic Other lower respiratory disease (1 source) Acute lower respiratory tract infection; Translations: [Unspecified acute lower respiratory infection] 01-01-2025 Episodic Other nervous system disorders (20 sources) Chronic pain; Translations: [Other chronic pain] Chronic Other nervous system disorders (4 sources) Other chronic pain; Translations: [Other chronic pain G89.29] Onset: 05-12-2021 Resolved: 03-06-2022 Chronic Other nervous system disorders (10 sources) Polyneuropathy; Translations: [Polyneuropathy, unspecified] Chronic Other nervous system disorders (2 sources) Polyneuropathy, unspecified Chronic Other nervous system disorders (9 sources) Postoperative pain ; Translations: [Other acute postprocedural pain] 10-26-2021 Episodic Comment on above: Problem List clean-u p per request of Phys. EHR Cmte Other nutritional; endocrine; and metabolic disorders (12 sources) Obese class I; Translations: [Body mass index (BMI) 31.0-31.9, adult] Chronic Other nutritional; endocrine; and metabolic disorders (6 sources) Body mass index 30+ - obesity; Translations: [Body mass index 36.0-36.9, adult] Onset: 08-31-2017 Chronic Other nutritional; endocrine; and metabolic disorders (6 sources) Obese class II; Translations: [Body mass index 37.0-37.9, adult] Onset: 08-31-2017 Chronic Other nutritional; endocrine; and metabolic disorders (2 sources) Obesity; Translations: [Class 1 obesity with body mass index (BMI) of 34.0 to 34.9 in adult] 03-09-2025 Chronic Peripheral and visceral atherosclerosis (15 sources) Peripheral vascular disease; Translations: [Peripheral vascular disease, unspecified] Chronic Phlebitis; thrombophlebitis and thromboembolism (12 sources) Deep venous thrombosis of lower extremity; Translations: [Acute embolism and thrombosis of right femoral vein] 08-30-2023 Episodic Residual codes; unclassified (11 sources) Patient encounter status; Translations: [Encounter for prophylactic measures, unspecified] 10-26-2021 Episodic Comment on above: Problem List clean-u p per request of Phys. EHR Cmte Residual codes; unclassified (5 sources) Edema of lower extremity; Translations: [Localized edema] 11-18-2024 Episodic Residual codes; unclassified (1 source) Preoperative state 11-18-2024 Episodic Skin and subcutaneous tissue infections (1 source) Cellulitis of left toe Episodic Spondylosis; intervertebral disc disorders; other back problems (15 sources) Lumbar spondylosis with myelopathy; Translations: [Other spondylosis with myelopathy, lumbar region] Onset: 11-11-2014 Chronic Spondylosis; intervertebral disc disorders; other back problems (20 sources) Low back pain; Translations: [Lumbar pain] Episodic Unclassified (2 sources) 2 month follow up Onset: 02-19-2025 Varicose veins of lower extremity (14 sources) 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; Translations: [Venous stasis ulcer of left lower extremity] Onset: 01-03-2024 10-15-2023 Episodic Past or Other Problems Problem [...] [Acute recurrent maxillary sinusitis] Onset: 08-31-2017 Episodic Residual codes; unclassified (5 sources) Localized edema; Translations: [Localized edema] Onset: 11-14-2024 Episodic Residual codes; unclassified (1 source) Finding of systemic arterial pressure; Translations: [Other general symptoms and signs] 01-03-2024 Episodic Unclassified (1 source) Lumbar pain; Translations: [Lumbar pain] Unclassified (2 sources) Lumbar pain M54.50 Results Test Name Value Interpretation Reference Range Facility Office Visiton 02-19-2025 Follow-up visit [id number] Kami Fink 1950 F Date Provider Department Center 02/19/2025 VICKEY POLLARD [facility] Family History Problem Relation Age of Onset Heart attack Mother Heart failure Father Coronary artery disease Sister Family Status - Relation Status Age at Mother Father Sister Level of Service:01398 [place] OFFICE/OUTPATIENT ESTABLISHED MOD MDM 30 MIN Reason for Visit and Comments: 2 month follow up [Other] Atrial Fibrillation [80] Hypertension [844325] Hyperlipidemia [182] Recent Echo [Other] Holter monitor [Other] MULLIGAN with being out in the heat [Other] [facility] 36on 12-12-2024 36 Vickey Mata MD Physician Signed 11/28/2024 Copy I reviewed with the patient 3 days Holter monitor and it shows A-fib all the time and her ventricular rate is mostly controlled, continue current management. Please inform the patient LVM to inform patient of Dr. Mata's findings and recommendation. [facility] XR KNEE LEFT (3 VIEWS)on XR KNEE LEFT (3 VIEWS) RADRPT EXAMINATION: XR KNEE LEFT (3 VIEWS), 12/04/2024 1:46 PM EDT INDICATION: Left total knee arthroplasty follow-up.. COMPARISON: 11/21/2024. FINDINGS: Left total knee arthroplastic hardware with extended tibial and femoral stems appears intact. No evidence for fracture. Alignment of the knee is anatomic. Resolved post surgical soft tissue findings. Report electronically signed by: Dr. Jada Lopez IMPRESSION: 1. Satisfactory and expected findings left total knee arthroplasty. Status post left knee replacement Interpreted by: Jada Lopez MD Signed by: Jada Lopez MD 12/05/24 Final result Normal [facility] Comment on above: Order Comment: Post op left 3V AP, LAT, [place] 36on 11-28-2024 36 I reviewed with the patient 3 days Holter monitor and it shows A-fib all the time and her ventricular rate is mostly controlled, continue current management. Please inform the patient Normal [facility] .eGFRon 11-26-2024 GFR/1.73 sq M.predicted MDRD (S/P/Bld) [Vol rate/Area] mL/min/{1.73_m2} Normal >=60 [facility] Comment on above: Result Comment: [facility] Laboratories have implemented the eGFR calculation approach that does not have a coefficient for race and that conforms to the NKF-ASN Task Force Recommendations. Stages of Chronic Kidney Disease GFR Stage 1 Normal to mild loss of kidney function ? 90 Stage 2 Mild loss of kidney function 60 - 89 Stage 3a Mild to moderate loss of kidney function 45 - 59 Stage 3b Moderate to severe loss of kidney function 30 - 45 Stage 4 Severe loss of kidney function 15 - 29 Stage 5 Kidney failure < 15 GFR calculated using the CKD-Epi Creatinine Equation (2020): eGFR = 142 X min(SCr/?, 1)? X max(SCr /?, 1)-1.200 X 0.9938Age X 1.012 [if female] Abbreviations/Units: eGFR (estimated glomerular filtration rate) = mL/min/1.73 m2 SCr (standardized serum creatinine) = mg/dL ? = 0.7 (females) or 0.9 (males) ? = -0.241 (females) or -0.302 (males) min = indicates the minimum of SCr/? or 1 max = indicates the maximum of SCr/? or 1 Age = years Performed By: #### E GFR ####[address] [address] Basic Metabolic Profileon Anion gap [Moles/Vol] 6 mmol/L Normal 4-12 [facility] Comment on above: Performed By: #### H GBHCT #### [address] [address] BUN Crea Ratio 16.9 ratio Normal 15.0-25.0 [facility] Comment on above: Performed By: #### H GBHCT #### [address] [address] Calcium [Mass/Vol] 8.5 mg/dL Low 8.6-10.3 [facility] Comment on above: Performed By: #### H GBHCT #### [address] [address] Chloride [Moles/Vol] 104 mmol/L Normal 98-107 [facility] Comment on above: Performed By: #### H GBHCT #### [address] [address] CO2 [Moles/Vol] 27 mmol/L Normal 21-31 [facility] Comment on above: Performed By: #### H GBHCT #### [address] [address] Creatinine [Mass/Vol] 0.89 mg/dL Normal 0.60-1.20 [facility] Comment on above: Performed By: #### H GBHCT #### [address] [address] Glucose [Mass/Vol] 108 mg/dL High 70-99 [facility] Comment on above: Performed By: #### H GBHCT #### [address] [address] Potassium [Moles/Vol] 4.1 mmol/L Normal 3.4-4.8 [facility] Comment on above: Performed By: #### H GBHCT #### [facility] [address] [place] [address] Sodium [Moles/Vol] 137 mmol/L Normal 136-145 [facility] Comment on above: Performed By: #### H GBHCT #### [facility] [address] [place] [address] Urea nitrogen [Mass/Vol] 15 mg/dL Normal 7-25 [facility] Comment on above: Performed By: #### H GBHCT #### [facility] [address] [place] [address] Cardiology Progress Noteon 0 11-26-2024 Cardiology Progress Note Subjective 74F with history of PAD and hypertension admitted 11/21/24 after undergoing left total knee arthroplasty by Dr. Luis Alberto Perez. AF diagnosed incidentally on preop ECG 11/05. Had tachycardia 11/25 am, but rate controlled after daily meds given. Interval History: - No significant events overnight - Remains in AF with controlled heart rates - Denies chest pain, dyspnea, palpitations, or lightheadedness Cardiac Testing Echocardiography 11/18/24: EF 50-55%, mild LVH, indeterminate diastolic function, mild LAE, mild MR, mild [place] ([facility]) Objective Vitals & Measurements T: 36.5 ?C (Oral) HR: 100 (Monitored) RR: 19 BP: 154/67 SpO2: 99% HT: 163 cm WT: 91.0 kg BMI: 35 Lab Results Test Name Test Result Date/Time Hgb 10.2 g/dL (Low) 11/26/2024 04:39 EDT Sodium Lvl 137 mmol/L 11/26/2024 04:39 EDT Potassium Lvl 4.1 mmol/L 11/26/2024 04:39 EDT BUN 15 mg/dL 11/26/2024 04:39 EDT Creatinine Lvl 0.89 mg/dL 11/26/2024 04:39 EDT Physical Exam Constitutional: No acute distress Neck: No JVD Respiratory: Respirations even and non-labored, clear to auscultation bilaterally Cardiovascular: Irregularly irregular rhythm with normal S1 and S2 and no murmurs, no pedal edema Extremities: No cyanosis Medications Inpatient acetaminophen, 650 mg, Oral, QID acetaminophen, 650 mg, Oral, q4hr, PRN atorvastatin, 40 mg, Oral, HS (at bedtime) Benadryl, 25 mg, Oral, q4hr, PRN bisacodyl, 10 mg= 1 supp, Rectal, Daily, PRN Colace, 100 mg, Oral, BID Eliquis, 5 mg, Oral, BID famotidine, 20 mg, Oral, Daily, PRN labetalol, 5 mg= 1 mL, IV Push, q4hr, PRN magnesium hydroxide 8% oral suspension, 30 mL, Oral, Daily, PRN metoprolol succinate 100 mg oral tablet, extended release, 100 mg, Oral, Daily metoprolol tartrate, 5 mg= 5 mL, IV Push, q4hr, PRN MiraLax, 17 g= 1 EA, Oral, Daily Normal Saline Flush 0.9% injectable solution, 10 mL, IV Push, As Indicated, PRN oxyCODONE, 5 mg, Oral, q4hr, PRN oxyCODONE, 10 mg, Oral, q4hr, PRN pregabalin, 75 mg, Oral, q12hr, PRN verapamil 12 hour extended release, 180 mg, Oral, Daily Zofran, 4 mg= 2 mL, IV Push, q6hr, PRN Assessment/Plan 1. 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 Hypertension - Continue verapamil SR 180 mg daily - Continue metoprolol succinate 100 mg daily Discharge at your discretion. Will sign off. Please call with questions. Medical Decision Making Number of Problems Addressed: Moderate (2 stable chronic problems) Data Reviewed/Analyzed: Low (reviewed results of 2 unique lab tests) Risk of Complications, Morbidity, or Mortality: Moderate (prescription drug management) Electronically signed by Roberto Riojas DO 11/26/24 06:44 EDT Normal [facility] Hgb & Hcton 11-26-2024 Hematocrit (Bld) [Volume fraction] 30.6 % Low 36.0-46.0 [facility] Comment on above: Performed By: #### H GBHCT #### [address] [address] Hemoglobin (Bld) [Mass/Vol] 10.2 g/dL Low 12.0-16.0 [facility] Comment on above: Performed By: #### H GBHCT #### [address] [address] Inpatient Clinical Summaryon 11-26-2024 Inpatient Clinical Summary [address] [address] [phone] [address] [phone] Clinical Summary Person Information Name: Kami Fink Age: 74 Years : 1950 Sex: Female PCP: Katelynn Clark MD Marital Status: Phone: PCP: Race: White Ethnicity: Not or Language: Sinhala Visit Id: Visit Reason: Surgery Speciality: Acuity: Enc Type: Inpatient Med Service: Orthopedics Arrival: 11/21/2024 13:18:45 Discharge: Dispo Type: Address: [address] [place] [id number] Preferred Communication Mode: Verbal Preferred Language: Sinhala Discharge Diagnosis: Atrial fibrillation, persistent; Current use of anticoagulant therapy; Hypertension; Status post total left knee replacement Discharged To: Rehabilitation Unit Mode of Discharge Transportation: Home Treatments: Devices/Equipment: Professional Skilled Services: Special Services and Community Resources: Discharge Orders: Tube Feeding and Supplements Home Health Consult and Ambulatory Referrals Treatment and Wound Care Coughing/Deep Breathing 11/21/24 18:04:00 EDT, Stop date 11/21/24 18:04:00 EDT, Nursing to encourage Q1 hour while awake Incentive Spirometry Nursing to Encourage 11/21/24 18:04:00 EDT, Daily Incision Care 11/21/24 18:04:00 EDT, Constant Order Saline Lock Convert From IV 11/21/24 18:04:00 EDT, Stop date 11/21/24 18:04:00 EDT, When PO >500ml in 8 hours Skin Care: Skin Integrity: Intact Skin Abnormalities: Scars Lines/Devices/BM Information: Urinary Catheter Type: Indwelling/Continuou s Urinary Catheter Size: Urinary Catheter Activity Date: Discontinued Pre-insertion Indwelling Catheter Education: Ostomy Type: GI Tube Type: GI Tube Size: GI Tube Activity Date: Date of Last Bowel Movement: 11/25/2024 Functional Status: Sensory Deficits: None, Uncorrected visual impairment Valuables/Belongings : Glasses, Clothes, Electronics History of Falls Within 6 Months: Yes High Fall Risk Interventions: All low and moderate risk fall interventions, Red high fall risk indicated outside patient room, Yellow gown and red nonskid socks, Bed/chair alarm activated, Best/Direct visual access used, Remain with patient during toileting, Patient transported wit... Activities of Daily Living: ADLs: Minimal assistance Bathing ADL: Requires assistance (1) Dressing ADL: Requires assistance (1) Personal Care Provided: Assisted with gown, Bed bath, Brief changed, Chux pad changed, Linens changed, Oral care, Alexandra care Bed Mobility Assistance: Independent Ambulation Assistance: One person assistance Musculoskeletal Abnormality: Gait: Stiff Assistive Devices: Gait belt, Walker Special Orthopedic Devices: Current Level of Assistance for Self Care/Mobility: Cognitive Status: Orientation Assessment: Oriented x 4 Level of Consciousness: Alert Characteristics of Speech: Clear Aspiration Risk: None Affect/Behavior: Appropriate Smoking Status Never (less than 100 in lifetime) Laboratory or Other Results This Visit (last charted value for your 11/21/2024 visit) Hematology 11/26/2024 4:39 AM Hct: 30.6 % -- Normal range between ( 36.0 and 46.0 ) Hgb: 10.2 g/dL -- Normal range between ( 12.0 and 16.0 ) Chemistry 11/26/2024 4:39 AM Creatinine Lvl: 0.89 mg/dL -- Normal range between ( 0.60 and 1.20 ) BUN: 15 mg/dL -- Normal range between ( 7 and 25 ) Glucose Lvl: 108 mg/dL -- Normal range between ( 70 and 99 ) Potassium Lvl: 4.1 mmol/L -- Normal range between ( 3.4 and 4.8 ) Sodium Lvl: 137 mmol/L -- Normal range between ( 136 and 145 ) Calcium Lvl: 8.5 mg/dL -- Normal range between ( 8.6 and 10.3 ) Chloride: 104 mmol/L -- Normal range between ( 98 and 107 ) CO2: 27 mmol/L -- Normal range between ( 21 and 31 ) Anion Gap: 6 mmol/L -- Normal range between ( 4 and 12 ) Estimated GFR: >60 mL/min/1.73m? BUN Crea Ratio: 16.9 ratio -- Normal range between ( 15.0 and 25.0 ) Diagnostic Radiology 11/21/2024 6:29 PM XR Knee 1 or 2 Views Left: XR Knee 1 or 2 Views Left Measurements: Height: 163 cm Dosing Weight: 91.0 kg Measured Weight: 91.0 kg Blood Pressure: 136 mmHg/ 70 mmHg BMI: 35 kg/m2 Respiratory: Respirations: Unlabored, Quiet Respiratory Symptoms: None CPAP/BiPAP: Machine Status: Expiratory Pressure: Inspiratory Pressure: Set Respiratory Rate: Oxygen Flow Rate: 0 L/min Inspiratory Time: Cardiovascular: Heart Rhythm: Irregular Vital Signs: Temp Axillary: Temp Temporal Artery: 36.3 degC Temp Oral: 36.5 degC Temp Rectal: Apical Heart Rate: Peripheral Pulse Rate: 127 bpm Heart Rate: 68 bpm Respiratory Rate: 20 br/min Diet: Diet: regular Feeding Tolerance: Appetite: Good Procedures REMOVE TONSILS AND ADENOIDS HIP REPLACEMENT, BILATERAL LUMBAR RADIO FREQUENCY ABLATI (more content not included)... Normal [facility] Orthopedic Progress Noteon 0 11-26-2024 Orthopedic Progress Note Subjective Patient resting comfortably in bed, pain well controlled. Feels she is noticing improvements in pain control and mobility. Denies chest pain, shortness of breath, nausea, lightheadedness, dizziness, calf pain, or numbness/tingling in her toes and feet. Objective Vitals & Measurements T: 36.5 ?C (Oral) HR: 100 (Monitored) RR: 19 BP: 154/67 SpO2: 99% HT: 163 cm HT: 163 cm WT: 96.8 kg BMI: 35 BMI: 35 Additional Vitals No qualifying data available. Lab Results Microbiology - Current Encounter No qualifying data available. Physical Exam General exam: Patient is a well-appearing female resting comfortably no acute distress. Patient is awake alert and orient x 3. Normal mood and affect. Left lower extremity: Dressing clean dry and intact. No erythema or drainage. Mild edema. Tenderness to palpation. Motor intact quad, hamstring, TA, GSC, EHL, FHL. Sensation intact to light touch SPN, DPN, sural, saphenous, deep nerve distribution. 1+ DP pulse. Toes well-perfused. No calf pain. Negative Homans. Medications Inpatient acetaminophen, 650 mg, Oral, QID acetaminophen, 650 mg, Oral, q4hr, PRN atorvastatin, 40 mg, Oral, HS (at bedtime) Benadryl, 25 mg, Oral, q4hr, PRN bisacodyl, 10 mg= 1 supp, Rectal, Daily, PRN Colace, 100 mg, Oral, BID Eliquis, 5 mg, Oral, BID famotidine, 20 mg, Oral, Daily, PRN labetalol, 5 mg= 1 mL, IV Push, q4hr, PRN magnesium hydroxide 8% oral suspension, 30 mL, Oral, Daily, PRN metoprolol succinate 100 mg oral tablet, extended release, 100 mg, Oral, Daily metoprolol tartrate, 5 mg= 5 mL, IV Push, q4hr, PRN MiraLax, 17 g= 1 EA, Oral, Daily Normal Saline Flush 0.9% injectable solution, 10 mL, IV Push, As Indicated, PRN oxyCODONE, 5 mg, Oral, q4hr, PRN oxyCODONE, 10 mg, Oral, q4hr, PRN pregabalin, 75 mg, Oral, q12hr, PRN verapamil 12 hour extended release, 180 mg, Oral, Daily Zofran, 4 mg= 2 mL, IV Push, q6hr, PRN Assessment/Plan Atrial fibrillation, persistent Current use of anticoagulant therapy Hypertension (Complaint of) Status post total left knee replacement Postop day 4 status post left total knee arthroplasty Continue to elevate lower extremity DVT prophylaxis TIN [place], teds A.m. hemoglobin 10.2. Hemodynamically stable. Continue to monitor. P.o. pain control PT/OT Dressing to remain in place until follow-up in 2 weeks. May shower over dressing. Ortho stable for transfer back to [facility] once cleared by medicine Anticipate DC to ECF when arranged and medically stable Outpatient follow-up in 2 weeks Orders: oxyCODONE, 5 mg, Oral, Tab, q4hr, PRN moderate pain [4-6 on pain scale], First Dose: 11/21/24 18:04:00 EDT, Dispense From Location: Formerly named [facility], 11/21/24 18:04:00 EDT oxyCODONE, 10 mg, Oral, Tab, q4hr, PRN severe pain [7-10 on pain scale], First Dose: 11/21/24 18:04:00 EDT, Dispense From Location: Formerly named [facility], 11/21/24 18:04:00 EDT verapamil, 180 mg, Oral, Tab-ER, Daily, First Dose: 11/22/24 9:00:00 EDT, Dispense From Location: [facility], 11/21/24 18:06:00 EDT Electronically signed by Bella Yarbrough PA-C 11/26/24 07:17 EDT Patient care discussed with Bella Yarbrough PA-C. Agree with assessment and plan. Electronically signed by Luis Alberto Preez MD 11/27/24 13:55 EDT [facility] Progress Note-Nurseon 2024 Progress Note-Nurse Report [facility] at 1445. All questions answered. Electronically signed by Dalila Adams 11/26/24 14:50 EDT [facility] .eGFRon 11-25-2024 GFR/1.73 sq M.predicted MDRD (S/P/Bld) [Vol rate/Area] mL/min/{1.73_m2} Normal >=60 [facility] Comment on above: Result Comment: [facility] Laboratories have implemented the eGFR calculation approach that does not have a coefficient for race and that conforms to the NKF-ASN Task Force Recommendations. Stages of Chronic Kidney Disease GFR Stage 3a Mild to moderate loss of kidney function 59 to 45 Stage 3b Moderate to severe loss of kidney function 44 to 33 Stage 4 Severe loss of kidney function 29 to 15 Stage 5 Kidney failure Less than 15 GFR calculated using the CKD-Epi Creatinine Equation (2020): eGFR = 142 X min(SCr/?, 1)? X max(SCr /?, 1)-1.200 X 0.9938Age X 1.012 [if female] Abbreviations/Units: eGFR (estimated glomerular filtration rate) = mL/min/1.73 m2 SCr (standardized serum creatinine) = mg/dL ? = 0.7 (females) or 0.9 (males) ? = -0.241 (females) or -0.302 (males) min = indicates the minimum of SCr/? or 1 max = indicates the maximum of SCr/? or 1 Age = years Performed By: #### H GBHCT #### [facility] [address] [place] [address] Basic Metabolic Profileon BUN Crea Ratio 15.6 ratio Normal 10.0-20.0 [facility] Comment on above: Performed By: #### H GBHCT #### [address] [address] [place] [address] Creatinine [Mass/Vol] 0.96 mg/dL Normal 0.44-1.03 [facility] Comment on above: Performed By: #### H GBHCT #### [address] [address] [place] [address] Urea nitrogen [Mass/Vol] 15 mg/dL Normal 8-26 [facility] Comment on above: Performed By: #### H GBHCT #### [address] [address] Anion gap [Moles/Vol] 5 mmol/L Normal 4-12 [facility] Comment on above: Performed By: #### H GBHCT #### [address] [address] Calcium [Mass/Vol] 8.8 mg/dL Normal 8.6-10.3 [facility] Comment on above: Performed By: #### H GBHCT #### [address] [address] Chloride [Moles/Vol] 105 mmol/L Normal 98-110 [facility] Comment on above: Performed By: #### H GBHCT #### [address] [address] CO2 [Moles/Vol] 26 mmol/L Normal 22-32 [facility] Comment on above: Performed By: #### H GBHCT #### [address] [address] Glucose [Mass/Vol] 109 mg/dL High 70-99 [facility] Comment on above: Performed By: #### H GBHCT #### [address] [address] Potassium [Moles/Vol] 4.1 mmol/L Normal 3.4-4.8 [facility] Comment on above: Performed By: #### H GBHCT #### [address] [address] Sodium [Moles/Vol] 136 mmol/L Normal 133-142 [facility] Comment on above: Performed By: #### H GBHCT #### [address] [address] Hgb & Hcton 11-25-2024 Hematocrit (Bld) [Volume fraction] 32.8 % Low 36.0-46.0 [facility] Comment on above: Performed By: #### H GBHCT #### [address] [address] Hemoglobin (Bld) [Mass/Vol] 10.9 g/dL Low 12.0-16.0 [facility] Comment on above: Performed By: #### H [facility] #### [facility] [address] [place] [address] Orthopedic Progress Noteon 0 11-25-2024 Orthopedic Progress Note Subjective Patient resting comfortably in bed. Pain well-controlled. Was able to ambulate in room and hallways with therapy. Denies chest pain, shortness of breath, nausea, lightheaded pain, or numbness and tingling in her toes and feet. Objective Vitals & Measurements T: 37.4 ?C (Oral) HR: 127 (Peripheral) RR: 16 BP: 164/70 SpO2: 98% HT: 163 cm HT: 163 cm WT: 96.8 kg BMI: 35 BMI: 35 Additional Vitals No qualifying data available. Lab Results Microbiology - Current Encounter No qualifying data available. Physical Exam General exam: Patient is a well-appearing female resting comfortably no acute distress. Patient is awake alert and orient x 3. Normal mood and affect. Left lower extremity: Dressing clean dry and intact. No erythema or drainage. Mild edema. Tenderness to palpation. Motor intact quad, hamstring, TA, GSC, EHL, FHL. Sensation intact to light touch SPN, DPN, sural, saphenous, deep nerve distribution. 1+ DP pulse. Toes well-perfused. No calf pain. Negative Homans. Medications Inpatient acetaminophen, 650 mg, Oral, QID acetaminophen, 650 mg, Oral, q4hr, PRN atorvastatin, 40 mg, Oral, HS (at bedtime) Benadryl, 25 mg, Oral, q4hr, PRN bisacodyl, 10 mg= 1 supp, Rectal, Daily, PRN Colace, 100 mg, Oral, BID Eliquis, 5 mg, Oral, BID famotidine, 20 mg, Oral, Daily, PRN labetalol, 5 mg= 1 mL, IV Push, q4hr, PRN magnesium hydroxide 8% oral suspension, 30 mL, Oral, Daily, PRN metoprolol succinate 100 mg oral tablet, extended release, 100 mg, Oral, Daily MiraLax, 17 g= 1 EA, Oral, Daily Normal Saline Flush 0.9% injectable solution, 10 mL, IV Push, As Indicated, PRN oxyCODONE, 5 mg, Oral, q4hr, PRN oxyCODONE, 10 mg, Oral, q4hr, PRN pregabalin, 75 mg, Oral, q12hr, PRN Sodium Chloride 0.9% intravenous solution 1,000 mL, 1000 mL, IV verapamil 12 hour extended release, 180 mg, Oral, Daily Zofran, 4 mg= 2 mL, IV Push, q6hr, PRN Assessment/Plan Status post total left knee replacement Postop day 3 status post left total knee arthroplasty Continue to elevate lower extremity DVT prophylaxis Gabriela, SCDs, teds A.m. hemoglobin 10.9. Hemodynamically stable. Continue to monitor. P.o. pain control PT/OT Dressing to remain in place until follow-up in 2 weeks. May shower over dressing. Nurse noticed heart rate fluctuations and got EKG which showed new onset afib in RVR, patient being transferred to ccu Anticipate DC to ECF when arranged and medically stable Outpatient follow-up in 2 weeks Ordered: oxyCODONE, 5 mg, Oral, q6hr, PRN, X 5 days, # 20 tabs, 0 Refill(s), 11/29/24 6:32:00 EDT pregabalin, 75 mg, Oral, q12hr, PRN, # 28 caps, 0 Refill(s) Electronically signed by Bella Yarbrough PA-C 11/25/24 07:14 EDT Patient care discussed with Bella Yarbrough PA-C. Agree with assessment and plan. Electronically signed by Luis Alberto Perez MD 11/25/24 20:16 EDT Normal [facility] Progress Note-Nurseon 2024 Progress Note-Nurse This nurse entered the room at 0610 patient resting heart rate 127, blood pressure 164/70, this nurse auscultated heart irregular rate and rhythm. This nurse messaged hospitalist, ordered EKG. EKG came back with Afib with RVR. Transfer to ICU ordered. This nurse gave report to STANDARDS ENGINEER Cosme Maradiaga. Electronically signed by Dakota Reagan 11/25/24 09:20 EDT Normal [facility] .eGFRon 11-24-2024 GFR/1.73 sq M.predicted MDRD (S/P/Bld) [Vol rate/Area] mL/min/{1.73_m2} Normal >=60 [facility] Comment on above: Result Comment: [facility] Laboratories have implemented the eGFR calculation approach that does not have a coefficient for race and that conforms to the NKF-ASN Task Force Recommendations. Stages of Chronic Kidney Disease GFR Stage 3a Mild to moderate loss of kidney function 59 to 45 Stage 3b Moderate to severe loss of kidney function 44 to 33 Stage 4 Severe loss of kidney function 29 to 15 Stage 5 Kidney failure Less than 15 GFR calculated using the CKD-Epi Creatinine Equation (2020): eGFR = 142 X min(SCr/?, 1)? X max(SCr /?, 1)-1.200 X 0.9938Age X 1.012 [if female] Abbreviations/Units: eGFR (estimated glomerular filtration rate) = mL/min/1.73 m2 SCr (standardized serum creatinine) = mg/dL ? = 0.7 (females) or 0.9 (males) ? = -0.241 (females) or -0.302 (males) min = indicates the minimum of SCr/? or 1 max = indicates the maximum of SCr/? or 1 Age = years Performed By: #### E GFR ####[address] [address] Basic Metabolic Profileon Anion gap [Moles/Vol] 8 mmol/L Normal 10-25 [facility] Comment on above: Performed By: #### C [id number] ####[address] [address] BUN Crea Ratio 19.5 ratio Normal 10.0-20.0 [facility] Comment on above: Performed By: #### C [id number] ####[address] [address] Calcium [Mass/Vol] 8.6 mg/dL Normal 8.6-10.3 [facility] Comment on above: Performed By: #### C [id number] ####[address] [address] Chloride [Moles/Vol] 102 mmol/L Normal 98-110 [facility] Comment on above: Performed By: #### C [id number] ####[address] [address] CO2 [Moles/Vol] 25 mmol/L Normal 22-32 [facility] Comment on above: Performed By: #### C [id number] ####[address] [address] Creatinine [Mass/Vol] 0.87 mg/dL Normal 0.44-1.03 [facility] Comment on above: Performed By: #### C [id number] ####[address] [address] Glucose [Mass/Vol] 101 mg/dL High 70-99 [facility] Comment on above: Performed By: #### C [id number] ####[address] [address] Potassium [Moles/Vol] 4.2 mmol/L Normal 3.4-4.8 [facility] Comment on above: Performed By: #### C [id number] ####[address] [address] Sodium [Moles/Vol] 135 mmol/L Normal 133-142 [facility] Comment on above: Performed By: #### C D:[id number] ####[address] [address] Urea nitrogen [Mass/Vol] 17 mg/dL Normal 8-26 [facility] Comment on above: Performed By: #### C [id number] ####[address] [address] Hgb & Hcton 11-24-2024 Hematocrit (Bld) [Volume fraction] 31.9 % Low 36.0-46.0 [facility] Comment on above: Performed By: #### H GBHCT ####[address] [place] [address] Hemoglobin (Bld) [Mass/Vol] 10.7 g/dL Low 12.0-16.0 [facility] Comment on above: Performed By: #### H GBHCT ####[address] [place] [address] Orthopedic Progress Noteon 0 11-24-2024 Orthopedic Progress Note Subjective Patient resting comfortably in bed. Pain well-controlled at rest. Does increase after PT or ambulating to restroom. Patient encouraged to elevate leg with propped up under heel is much as tolerated. Denies chest pain, shortness of breath, nausea, lightheaded pain, or numbness and tingling in her toes and feet. Objective Vitals & Measurements T: 36.6 ?C (Oral) HR: 96 (Peripheral) RR: 16 BP: 149/77 SpO2: 95% HT: 163 cm HT: 163 cm WT: 96.8 kg BMI: 35 BMI: 35 Additional Vitals No qualifying data available. Lab Results Microbiology - Current Encounter No qualifying data available. Diagnostic Results Diagnostic Radiology XR Knee 1 or 2 Views Left 11/21/24 19:32:04 IMPRESSION: Status post left total knee arthroplasty without evidence of an acute complication. Signed By: Pippa MUJICA, Delroy Stephenson Physical Exam General exam: Patient is a well-appearing female resting comfortably no acute distress. Patient is awake alert and orient x 3. Normal mood and affect. Left lower extremity: Dressing clean dry and intact. No erythema or drainage. Mild edema. Tenderness to palpation. Motor intact quad, hamstring, TA, GSC, EHL, FHL. Sensation intact to light touch SPN, DPN, sural, saphenous, deep nerve distribution. 1+ DP pulse. Toes well-perfused. No calf pain. Negative Homans. Medications Inpatient acetaminophen, 650 mg, Oral, QID acetaminophen, 650 mg, Oral, q4hr, PRN atorvastatin, 40 mg, Oral, HS (at bedtime) Benadryl, 25 mg, Oral, q4hr, PRN bisacodyl, 10 mg= 1 supp, Rectal, Daily, PRN Colace, 100 mg, Oral, BID Eliquis, 5 mg, Oral, BID famotidine, 20 mg, Oral, Daily, PRN labetalol, 5 mg= 1 mL, IV Push, q4hr, PRN magnesium hydroxide 8% oral suspension, 30 mL, Oral, Daily, PRN metoprolol succinate 100 mg oral tablet, extended release, 100 mg, Oral, Daily MiraLax, 17 g= 1 EA, Oral, Daily Normal Saline Flush 0.9% injectable solution, 10 mL, IV Push, As Indicated, PRN oxyCODONE, 5 mg, Oral, q4hr, PRN oxyCODONE, 10 mg, Oral, q4hr, PRN pregabalin, 75 mg, Oral, q12hr, PRN Sodium Chloride 0.9% intravenous solution 1,000 mL, 1000 mL, IV verapamil 12 hour extended release, 180 mg, Oral, Daily Zofran, 4 mg= 2 mL, IV Push, q6hr, PRN Assessment/Plan Status post total left knee replacement Postop day 2 status post left total knee arthroplasty Continue to elevate lower extremity DVT prophylaxis Bienvenido Ochoa teds A.m. hemoglobin 11.5. Hemodynamically stable. Continue to monitor. P.o. pain control PT/OT Dressing to remain in place until follow-up in 2 weeks. May shower over dressing. Anticipate DC to ECF when arranged Outpatient follow-up in 2 weeks Electronically signed by Bella Yarbrough PA-C 11/24/24 07:00 EDT Patient care discussed with Bella Yarbrough PA-C. Agree with assessment and plan. Electronically signed by Luis Alberto Perez MD 11/24/24 07:29 EDT Normal [facility] .eGFRon 11-23-2024 GFR/1.73 sq M.predicted MDRD (S/P/Bld) [Vol rate/Area] mL/min/{1.73_m2} Normal >=60 [facility] Comment on above: Result Comment: [facility] Laboratories have implemented the eGFR calculation approach that does not have a coefficient for race and that conforms to the NKF-ASN Task Force Recommendations. Stages of Chronic Kidney Disease GFR Stage 3a Mild to moderate loss of kidney function 59 to 45 Stage 3b Moderate to severe loss of kidney function 44 to 33 Stage 4 Severe loss of kidney function 29 to 15 Stage 5 Kidney failure Less than 15 GFR calculated using the CKD-Epi Creatinine Equation (2020): eGFR = 142 X min(SCr/?, 1)? X max(SCr /?, 1)-1.200 X 0.9938Age X 1.012 [if female] Abbreviations/Units: eGFR (estimated glomerular filtration rate) = mL/min/1.73 m2 SCr (standardized serum creatinine) = mg/dL ? = 0.7 (females) or 0.9 (males) ? = -0.241 (females) or -0.302 (males) min = indicates the minimum of SCr/? or 1 max = indicates the maximum of SCr/? or 1 Age = years Performed By: #### H GBHCT #### [facility] [address] [place] [address] Basic Metabolic Profileon Anion gap [Moles/Vol] 5 mmol/L Normal 4-12 [facility] Comment on above: Order Comment: taina tomlinson 2 times 11/23/2024 05:40:48 EDT ss Performed By: #### C [id number] ####[facility] [place] [address] BUN Crea Ratio 24.1 ratio High 10.0-20.0 [facility] Comment on above: Order Comment: taina tomlinson 2 times 11/23/2024 05:40:48 EDT ss Performed By: #### C [id number] ####[address] [address] Calcium [Mass/Vol] 8.7 mg/dL Normal 8.6-10.3 [facility] Comment on above: Order Comment: taina tomlinson 2 times 11/23/2024 05:40:48 EDT ss Performed By: #### C [id number] ####[address] [address] Chloride [Moles/Vol] 105 mmol/L Normal 98-110 [facility] Comment on above: Order Comment: taina tomlinson 2 times 11/23/2024 05:40:48 EDT ss Performed By: #### C [id number] ####[address] [address] CO2 [Moles/Vol] 25 mmol/L Normal 22-32 [facility] Comment on above: Order Comment: taina tomlinson 2 times 11/23/2024 05:40:48 EDT ss Performed By: #### C [id number] ####[address] [address] Creatinine [Mass/Vol] 0.83 mg/dL Normal 0.44-1.03 [facility] Comment on above: Order Comment: taina tomlinson 2 times 11/23/2024 05:40:48 EDT ss Performed By: #### C [id number] ####[address] [address] Glucose [Mass/Vol] 100 mg/dL High 70-99 [facility] Comment on above: Order Comment: taina tomlinson 2 times 11/23/2024 05:40:48 EDT ss Performed By: #### C [id number] ####[address] [address] Potassium [Moles/Vol] 4.2 mmol/L Normal 3.4-4.8 [facility] Comment on above: Order Comment: taina tomlinson 2 times 11/23/2024 05:40:48 EDT ss Performed By: #### C [id number] ####[address] [address] Sodium [Moles/Vol] 135 mmol/L Normal 133-142 [facility] Comment on above: Order Comment: taina tomlinson 2 times 11/23/2024 05:40:48 EDT ss Performed By: #### C [id number] ####[address] [address] Urea nitrogen [Mass/Vol] 20 mg/dL Normal 8-26 [facility] Comment on above: Order Comment: taina tomlinson 2 times 11/23/2024 05:40:48 EDT ss Performed By: #### C [id number] ####[address] [address] Hgb & Hcton 11-23-2024 Hematocrit (Bld) [Volume fraction] 35.4 % Low 36.0-46.0 [facility] Comment on above: Performed By: #### H GBHCT ####[address] [address] Hemoglobin (Bld) [Mass/Vol] 11.5 g/dL Low 12.0-16.0 [facility] Comment on above: Performed By: #### H GBHCT ####[address] [address] Orthopedic Progress Noteon 0 11-23-2024 Orthopedic Progress Note Subjective Patient resting comfortably in bed. Pain well-controlled. She states she had some increased pain when she attempted to get up with therapy. She was able to ambulate well with therapy. Denies chest pain or shortness of breath. Denies fevers or chills. Urinating after catheter removal. Objective Vitals & Measurements T: 37.1 ?C (Oral) HR: 88 (Peripheral) RR: 14 BP: 162/85 SpO2: 99% HT: 163 cm HT: 163 cm WT: 96.8 kg BMI: 35 BMI: 35 Additional Vitals No qualifying data available. Lab Results Microbiology - Current Encounter No qualifying data available. Diagnostic Results Diagnostic Radiology XR Knee 1 or 2 Views Left 11/21/24 19:32:04 IMPRESSION: Status post left total knee arthroplasty without evidence of an acute complication. Signed By: Pippa MUJICA, Delroy Stephenson Physical Exam General exam: Patient is a well-appearing female resting comfortably no acute distress. Patient is awake alert and orient x 3. Normal mood and affect. Left lower extremity: Dressing clean dry and intact. No erythema or drainage. Mild edema. Tenderness to palpation. Motor intact quad, hamstring, TA, GSC, EHL, FHL. Sensation intact to light touch SPN, DPN, sural, saphenous, deep nerve distribution. 1+ DP pulse. Toes well-perfused. No calf pain. Negative Homans. Medications Inpatient acetaminophen, 650 mg, Oral, QID acetaminophen, 650 mg, Oral, q4hr, PRN atorvastatin, 40 mg, Oral, HS (at bedtime) Benadryl, 25 mg, Oral, q4hr, PRN bisacodyl, 10 mg= 1 supp, Rectal, Daily, PRN Colace, 100 mg, Oral, BID Eliquis, 5 mg, Oral, BID famotidine, 20 mg, Oral, Daily, PRN labetalol, 5 mg= 1 mL, IV Push, q4hr, PRN magnesium hydroxide 8% oral suspension, 30 mL, Oral, Daily, PRN metoprolol succinate 100 mg oral tablet, extended release, 100 mg, Oral, Daily MiraLax, 17 g= 1 EA, Oral, Daily Normal Saline Flush 0.9% injectable solution, 10 mL, IV Push, As Indicated, PRN oxyCODONE, 5 mg, Oral, q4hr, PRN oxyCODONE, 10 mg, Oral, q4hr, PRN pregabalin, 75 mg, Oral, q12hr, PRN Sodium Chloride 0.9% intravenous solution 1,000 mL, 1000 mL, IV verapamil 12 hour extended release, 180 mg, Oral, Daily Zofran, 4 mg= 2 mL, IV Push, q6hr, PRN Assessment/Plan Status post total left knee replacement Postop day 2 status post left total knee arthroplasty Continue to elevate lower extremity DVT prophylaxis Eliquis, SCDs, deondres A.m. hemoglobin 11.5. Hemodynamically stable. Continue to monitor. P.o. pain control PT/OT DC Boogie catheter Dressing to remain in place until follow-up in 2 weeks. May shower over dressing. Anticipate DC to ECF when medically stable Outpatient follow-up in 2 weeks Electronically signed by Luis Alberto Perez MD 11/23/24 13:46 EDT Normal [facility] .eGFRon 11-22-2024 Estimated GFR 55 mL/min/1.73m? Low >=60 [facility] Comment on above: Result Comment: [facility] Laboratories have implemented the eGFR calculation approach that does not have a coefficient for race and that conforms to the NKF-ASN Task Force Recommendations. Stages of Chronic Kidney Disease GFR Stage 3a Mild to moderate loss of kidney function 59 to 45 Stage 3b Moderate to severe loss of kidney function 44 to 33 Stage 4 Severe loss of kidney function 29 to 15 Stage 5 Kidney failure Less than 15 GFR calculated using the CKD-Epi Creatinine Equation (2020): eGFR = 142 X min(SCr/?, 1)? X max(SCr /?, 1)-1.200 X 0.9938Age X 1.012 [if female] Abbreviations/Units: eGFR (estimated glomerular filtration rate) = mL/min/1.73 m2 SCr (standardized serum creatinine) = mg/dL ? = 0.7 (females) or 0.9 (males) ? = -0.241 (females) or -0.302 (males) min = indicates the minimum of SCr/? or 1 max = indicates the maximum of SCr/? or 1 Age = years Performed By: #### H GBHCT #### [address] [address] Basic Metabolic Profileon Anion gap [Moles/Vol] 7 mmol/L Normal 4-12 [facility] Comment on above: Performed By: #### H GBHCT #### [address] [place] [address] BUN Crea Ratio 20.0 ratio Normal 10.0-20.0 [facility] Comment on above: Performed By: #### H GBHCT #### [address] [address] Calcium [Mass/Vol] 8.8 mg/dL Normal 8.6-10.3 [facility] Comment on above: Performed By: #### H GBHCT #### [address] [address] Chloride [Moles/Vol] 106 mmol/L Normal 98-110 [facility] Comment on above: Performed By: #### H GBHCT #### [address] [address] CO2 [Moles/Vol] 24 mmol/L Normal 22-32 [facility] Comment on above: Performed By: #### H GBHCT #### [address] [address] Creatinine [Mass/Vol] 1.05 mg/dL High 0.44-1.03 [facility] Comment on above: Performed By: #### H GBHCT #### [address] [address] Glucose [Mass/Vol] 160 mg/dL High 70-99 [facility] Comment on above: Performed By: #### H GBHCT #### [address] [address] Potassium [Moles/Vol] 4.3 mmol/L Normal 3.4-4.8 [facility] Comment on above: Performed By: #### H GBHCT #### [address] [address] Sodium [Moles/Vol] 137 mmol/L Normal 133-142 [facility] Comment on above: Performed By: #### H GBHCT #### [address] [address] Urea nitrogen [Mass/Vol] 21 mg/dL Normal 8-26 [facility] Comment on above: Performed By: #### H GBHCT #### [facility] [address] [place] [address] Hgb & Hcton 11-22-2024 Hematocrit (Bld) [Volume fraction] 35.5 % Low 36.0-46.0 [facility] Comment on above: Performed By: #### H GBHCT #### [facility] [address] [place] [address] Hemoglobin (Bld) [Mass/Vol] 12.1 g/dL Normal 12.0-16.0 [facility] Comment on above: Performed By: #### H GBHCT #### [address] [place] [address] Orthopedic Progress Noteon 0 11-22-2024 Orthopedic Progress Note Subjective Patient resting comfortably in bed. Pain well-controlled. Denies chest pain or shortness of breath. Denies fevers or chills. Boogie catheter was placed due to urinary urgency and difficulty getting to the bathroom. Denies numbness or tingling in her toes. She was able to work with physical therapy today. Objective Vitals & Measurements T: 36.5 ?C (Oral) HR: 82 (Peripheral) RR: 16 BP: 148/76 SpO2: 100% HT: 163 cm HT: 163 cm WT: 97.7 kg WT: 97.7 kg BMI: 35 BMI: 35 Additional Vitals No qualifying data available. Lab Results Microbiology - Current Encounter No qualifying data available. Diagnostic Results Diagnostic Radiology XR Knee 1 or 2 Views Left 11/21/24 19:32:04 IMPRESSION: Status post left total knee arthroplasty without evidence of an acute complication. Signed By: Pippa MUJICA, Delroy Stephenson Physical Exam General exam: Patient is a well-appearing female resting comfortably no acute distress. Patient is awake alert and orient x 3. Normal mood and affect. Left lower extremity: Dressing clean dry and intact. No erythema or drainage. Mild edema. Tenderness to palpation. Motor intact quad, hamstring, TA, GSC, EHL, FHL. Sensation intact to light touch SPN, DPN, sural, saphenous, deep nerve distribution. 1+ DP pulse. Toes well-perfused. No calf pain. Negative Homans. Medications Inpatient acetaminophen, 650 mg, Oral, QID acetaminophen, 650 mg, Oral, q4hr, PRN atorvastatin, 40 mg, Oral, HS (at bedtime) Benadryl, 25 mg, Oral, q4hr, PRN bisacodyl, 10 mg= 1 supp, Rectal, Daily, PRN ceFAZolin, 2 g= 50 mL, IV Piggyback, q8hr Colace, 100 mg, Oral, BID Eliquis, 5 mg, Oral, BID famotidine, 20 mg, Oral, Daily, PRN magnesium hydroxide 8% oral suspension, 30 mL, Oral, Daily, PRN metoprolol succinate 100 mg oral tablet, extended release, 100 mg, Oral, Daily MiraLax, 17 g= 1 EA, Oral, Daily Normal Saline Flush 0.9% injectable solution, 10 mL, IV Push, As Indicated, PRN oxyCODONE, 5 mg, Oral, q4hr, PRN oxyCODONE, 10 mg, Oral, q4hr, PRN pregabalin, 75 mg, Oral, q12hr, PRN Sodium Chloride 0.9% intravenous solution 1,000 mL, 1000 mL, IV verapamil 12 hour extended release, 180 mg, Oral, Daily Zofran, 4 mg= 2 mL, IV Push, q6hr, PRN Assessment/Plan Status post total left knee replacement Postop day 1 status post left total knee arthroplasty Continue to elevate lower extremity DVT prophylaxis Eliquis, SCDs, teds P.o. pain control PT/OT Boogie catheter in place. Plan to remove Boogie catheter tomorrow morning. IV Ancef while catheter in place Dressing to remain in place until follow-up in 2 weeks. May shower over dressing. Anticipate DC to ECF when medically stable Outpatient follow-up in 2 weeks Orders: Consult to Hospitalist Electronically signed by Luis Alberto Perez MD 11/22/24 16:05 EDT Normal [facility] Consultation Note - Generico n 11-21-2024 Consultation Note - Generic Chief Complaint Left knee pain Assessment/Plan Brief Hospital Course Summary: This is a 74 Years old Female with pertinent history of _GERD history of blood clots, recent A-fib diagnosis started on Eliquis this week, hypertension, PAD along with multiple medical problems brought in from Home with Left knee pain. Patient is admitted for left knee replacement,_. Assessment: GERD History of blood clots, recent diagnosis of atrial fibrillation recently started on Eliquis Hypertension PAD Plan: _> Continue with patient home medications small frequent meals head of bed up no late-night eating avoid triggering foods > Patient has her Eliquis restarted tomorrow, recently this was started she also has a history of blood clot she should continue on this no other changes > Patient has a history of PAD monitor for circulation issues to the lower extremity surgical site. Currently with brisk cap refill Discussion: I discussed with the patient, family, patient's nurse, and care transition about the patient's plan of care. I reviewed other provider notes. Anticipated Discharge Location: To be discussed Medical necessity for ongoing hospitalization: ongoing workup for active diagnosis Code Status: Full Resuscitation History of Present Illness Patient is seen postop left knee with past medical history of GERD history of blood clots, recent A-fib diagnosis started on Eliquis this week, hypertension, PAD that we are asked to see for medical management. As I see the patient she is alert she is awake she is on 2 L of oxygen that I shut off and she is maintaining sats above 96%. She states her pain is controlled has no new numbness and tingling. This is her third joint replacement. She denies any chest pain or tightness Review of Systems Constitutional: No fevers, chills, sweats, mildly drowsy Eye: No recent visual problems ENMT: No ear pain, nasal congestion, sore throat Respiratory: No shortness of breath, cough Cardiovascular: No Chest pain, palpitations, syncope Gastrointestinal: Denies nausea vomiting diarrhea Genitourinary: No hematuria Leobardo/Lymph: Negative for bruising tendency, swollen lymph glands Endocrine: Negative for excessive thirst, excessive hunger Musculoskeletal: Left knee in cooling wrap wrap remains in place postop getting sensation of lower extremity Integumentary: No rash, pruritus, abrasions Neurologic: Alert & oriented X 3 Psychiatric: No anxiety, depression Objective General: Alert and oriented, well nourished, no acute distress. Eye: PERR, normal conjunctiva, no scleral icterus. HENT: Normocephalic, No active drainage noted to external ears, normal hearing, no active nasal drainage, no erythema or oral lesions noted. Neck: Supple, non-tender. Lungs: Clear to auscultation and percussion, non-labored respiration. Heart: Normal rate, regular rhythm. Abdomen: Soft, non-tender, non-distended, normal bowel sounds. Musculoskeletal: Left knee postop wrap, cooling device in place brisk cap refill extremity warm Skin: Skin is warm, dry and pink, no rashes or lesions to exposed areas. Neurologic: Awake, alert, and oriented X3. Psychiatric: Cooperative, appropriate mood and affect. Vitals & Measurements T: 36.3 ?C (Oral) TMIN: 36.3 ?C (Oral) TMAX: 36.9 ?C (Temporal Artery) HR: 82 (Peripheral) RR: 16 BP: 158/78 SpO2: 100% HT: 163 cm HT: 163 cm WT: 93 kg WT: 93 kg (Dosing) BMI: 35 BMI: 35 Additional Vitals No qualifying data available. Problem List/Past Medical History Ongoing GERD (gastroesophageal reflux disease) History of blood clots Hypertension Knee pain, left Nocturia Osteoarthritis of knee PAD (peripheral artery disease) Urinary urgency Historical No qualifying data Degree of Malnutrition: No qualifying data available. Procedure/Surgical History LUMBAR RADIO FREQUENCY ABLATION Colonoscopy REMOVE TONSILS AND ADENOIDS Appendectomy RIGHT KNEE REPLACEMENT HIP REPLACEMENT, BILATERAL Arthroplasty Knee Total Replacement-MIS (Left) (11/21/2024) Medications Inpatient acetaminophen, 650 mg, Oral, QID acetaminophen, 650 mg, Oral, q4hr, PRN atorvastatin, 40 mg, Oral, HS (at bedtime) Benadryl, 25 mg, Oral, q4hr, PRN bisacodyl, 10 mg= 1 supp, Rectal, Daily, PRN ceFAZolin, 2 g= 50 mL, IV Piggyback, q8hr Colace, 100 mg, Oral, BID Eliquis, 5 mg, Oral, BID famotidine, 20 mg, Oral, Daily, PRN magnesium hydroxide 8% oral suspension, 30 mL, Oral, Daily, PRN metoprolol succinate 100 mg oral tablet, extended release, 100 mg, Oral, Daily MiraLax, 17 g= 1 EA, Oral, Daily Normal Saline Flush 0.9% injectable solution, 10 mL, IV Push, As Indicated, PRN oxyCODONE, 5 mg, Oral, q4hr, PRN oxyCODONE, 10 mg, Oral, q4hr, PRN pregabalin, 75 mg, Oral, q12hr, PRN Sodium Chloride 0.9% intravenous solution 1,000 mL, 1000 mL, IV verapamil 12 hour extended release, 180 mg, Oral, Daily Zofran, 4 mg= 2 mL, IV Push, q6hr, PRN Home acetaminophen, 1000 mg, Oral, q6hr, PRN (more content not included)... Normal [facility] XR Knee 1 or 2 Views Lefton 11-21-2024 XR Knee 1 or 2 Views Left EXAM: XR Knee 1 or 2 Views Left HISTORY: s/p left TKA COMPARISON: April 21, 2024. TECHNIQUE: AP and crosstable lateral views of the left knee were obtained. FINDINGS: There are postoperative changes from an arthroplasty procedure with normal alignment. Associated subcutaneous emphysema. IMPRESSION: Status post left total knee arthroplasty without evidence of an acute complication. Final Dictated by: Delroy Das MD Dictated DT/TM: 11/21/2024 7:29 pm Signed by: Delroy Das MD Signed (Electronic Signature): 11/21/2024 7:32 pm Transcribed DT/TM: 11/21/2024 7:31 (If Report Is Signed, Electronically Signed in Other Vendor System) [facility] 36on 11-19-2024 36 Regarding echo result from 11/18/2024: MD Eusebia Coyle MA Patient's echo is overall unremarkable. She can proceed with the surgery from cardiac point of view. She is considered to be at low risk for perioperative cardiac events. In regarding to Eliquis, it can be stopped 24-hour prior to procedure but if it needs to be discontinued for longer duration I recommend to bridge her with Lovenox. I recommend to restart her on anticoagulation as soon as possible post procedure because the patient is in permanent atrial fibrillation. Note printed and faxed to [facility]. Patient notified she's cleared for surgery from cardiac standpoint. Normal [facility] Cardiac echo study Procedure Ordered By: Vero Delgado on 11-18-2024 Aortic Sinus Valsalva 3.1 cm [employer] Work Phone: Aortic Sinus Valsalva Index 1.59 cm/m2 [employer] Phone: AV Cusp Mmode 2 cm L2 Phone: AV Mean Gradient 2 mmHg [employer] Work Phone: AV Mean Velocity 0.7 m/s [employer] Work Phone: AV Peak Gradient 4 mmHg [employer] Work Phone: AV Peak Velocity 1 m/s [employer] Phone: AV Velocity Ratio 0.6 [employer] Phone: AV VTI 18.5 cm [employer] Work Phone: Body surface area Derived from formula 2.02 m2 [employer] Work Phone: E/E' Lateral 9.75 L2 Phone: EF BP 55 % 55 - 100 % [employer] Work Phone: EF Physician 55 % [employer] Work Phone: Est. RA Pressure 3 mmHg [employer] Phone: Fractional Shortening 2D 20 % 28 - 44 % [employer] Work Phone: Interpretation and review of laboratory results Abnormal L2 Phone: IVSd 1.1 cm Abnormal 0.6 - 0.9 cm L2 Phone: LA Area 2C 24.4 cm2 [employer] Work Phone: LA Area 4C 23.9 cm2 [employer] Work Phone: LA [facility] 6.2 cm L2 Phone: LA [facility] 6.4 cm [employer] Work Phone: LA Volume BP 78 mL Abnormal 22 - 52 mL [employer] Work Phone: LA Volume Index BP 40 ml/m2 Abnormal 16 - 34 ml/m2 [employer] Work Phone: LA Volume Index MOD A2C 40 ml/m2 Abnormal 16 - 34 ml/m2 [employer] Work Phone: LA Volume Index MOD A4C 39 ml/m2 Abnormal 16 - 34 ml/m2 [employer] Work Phone: LA Volume MOD A2C 78 mL Abnormal 22 - 52 mL [employer] Phone: LA Volume MOD A4C 77 mL Abnormal 22 - 52 mL [employer] Phone: LV E' Lateral Velocity 12.1 cm/s [employer] Work Phone: LV EDV A2C 56 mL [employer] Work Phone: LV EDV A4C 55 mL [employer] Work Phone: LV EDV Index A2C 29 mL/m2 [employer] Work Phone: LV EDV Index A4C 28 mL/m2 [employer] Work Phone: LV Ejection Fraction A2C 55 % [employer] Work Phone: LV Ejection Fraction A4C 52 % [employer] Work Phone: LV ESV A2C 25 mL [employer] Work Phone: LV ESV A4C 27 mL [employer] Work Phone: LV ESV Index A2C 13 mL/m2 [employer] Work Phone: LV ESV Index A4C 14 mL/m2 [employer] Work Phone: LV Mass 2D 164 g Abnormal 67 - 162 g [employer] Work Phone: LV Mass 2D Index 84.1 g/m2 43 - 95 g/m2 [employer] Work Phone: LV RWT Ratio 0.44 [employer] Phone: LVIDd 4.5 cm 3.9 - 5.3 cm [employer] Work Phone: LVIDd Index 2.31 cm/m2 [employer] Phone: LVIDs 3.6 cm [employer] Phone: LVIDs Index 1.85 cm/m2 [employer] Phone: LVOT Mean Gradient 1 mmHg [employer] Phone: LVOT Peak Gradient 2 mmHg [employer] Phone: LVOT Peak Velocity 0.6 m/s [employer] Phone: LVOT VTI 13.7 cm [employer] Phone: LVOT:AV VTI Index 0.74 [employer] Phone: LVPWd 1 cm Abnormal 0.6 - 0.9 cm [employer] Phone: MV E Velocity 1.18 m/s [employer] Phone: MV E Wave Deceleration Time 197 ms [employer] Phone: PV Max Velocity 0.8 m/s [employer] Phone: PV Peak Gradient 3 mmHg [employer] Phone: RV Basal Dimension 3 cm [employer] Phone: TAPSE 1.7 cm 1.7 cm [employer] Work Phone: [employer] Work Phone: Cardiac echo study Procedure on 11-18-2024 Left Ventricle: Normal left ventricular systolic function with a visually estimated EF of 50 - 55%. Left ventricle size is normal. Mildly increased wall thickness. Unable to assess wall motion. Diastolic function indeterminate in the setting of atrial fibrillation. Right Ventricle: Right ventricle size is normal. Normal systolic function. Mitral Valve: Mild regurgitation. Pulmonic Valve: The pulmonic valve visualization is suboptimal but appears to be functioning normally. Mild regurgitation. No stenosis noted. Left Atrium: Left atrium is mildly dilated. Left atrial volume index is mildly increased (35-41 mL/m2) mL/m2. Image quality is adequate. Left Ventricle Normal left ventricular systolic function with a visually estimated EF of 50 - 55%. Left ventricle size is normal. Mildly increased wall thickness. Unable to assess wall motion. Diastolic function indeterminate in the setting of atrial fibrillation. Right Ventricle Right ventricle size is normal. Normal systolic function. Left Atrium Left atrium is mildly dilated. Left atrial volume index is mildly increased (35-41 mL/m2) mL/m2. Right Atrium Right atrium size is normal. IVC/SVC IVC diameter is normal or and decreases greater than 50% during inspiration; therefore the estimated right atrial pressure is normal (~3 mmHg). IVC size is normal. Mitral Valve Valve structure is normal. Mild regurgitation. No stenosis noted. Tricuspid Valve Valve structure is normal. No regurgitation. No stenosis noted. Aortic Valve Valve structure is normal. No regurgitation. No stenosis. Pulmonic Valve The pulmonic valve visualization is suboptimal but appears to be functioning normally. Mild regurgitation. No stenosis noted. Ascending Aorta Normal sized aortic root. Pericardium No pericardial effusion. Study Details Image quality: adequate. No contrast was given. [facility] CV CPACS Radiology Study observation (narrative) [facility] Office Visiton 11-14-2024 Follow-up visit [id number] Kami Fink 1950 F Date Provider Department Center 11/14/2024 [id number]-[facility]CI[facility] Family History Problem Relation Age of Onset Heart attack Mother Heart failure Father Coronary artery disease Sister Family Status - Relation Status Age at Mother Father Sister Level of Service:59125 [place] OFFICE/OUTPATIENT NEW MODERATE MDM 45 MINUTES Reason for Visit and Comments: Atrial Fibrillation [80] New Patient [632] pre op clearance [Other] - Normal [facility] Urine Cultureon 11-06-2024 Bacteria identified Cx Nom (U) ORDERING PHYSICIAN LUIS ALBERTO PEREZ Urine Culture Results No Growth 2 Days PERFORMED BY: [place] [address] PATHOLOGIST [employer] GREER MCKENZIE M.D. Normal [facility] Comment on above: Performed By: #### C UU #### [facility] [address] XR knee RT 2Von 11-02-2022 XR knee RT 2V [facility] [employer] Other XR knee RT 2V [facility] [employer] Other XR knee RT 2V 1111 [facility] [employer] Other XR knee RT 2V [address] [employer] Other XR knee RT 2V XRay Report [employer] Other XR knee RT 2V Signed [facility] Other XR knee RT 2V Patient: Kami Fink MR#: [id number] [employer] Other XR knee RT 2V 31 [facility] Other XR knee RT 2V : 1950 Acct:[id number] [facility] Other XR knee RT 2V Age/Sex: 72 / F ADM Date: 11/02/22 [facility] Other XR knee RT 2V Loc: [facility] Room: Type: [facility] Other XR knee RT 2V Attending Dr: Jose Najera II, MD [facility] Other XR knee RT 2V Copies to: Jose Najera MD [facility] Other XR knee RT 2V Ordering Provider: Jsoe Najera MD [facility] Other XR knee RT 2V Date of Service: 11/02/22 [facility] Other XR knee RT 2V XR/XR knee RT 2V: History of total right knee replacement [facility] Other XR knee RT 2V RIGHT KNEE - 2 views N [employer] Other XR knee RT 2V CLINICAL HISTORY: Follow-up right TKA [facility] Other XR knee RT 2V COMPARISON: Right knee 01/18/2022 [facility] Other XR knee RT 2V FINDINGS: [facility] Other XR knee RT 2V No evidence of hardware complication or acute bony process. [facility] Other XR knee RT 2V XR/XR knee RT 2V [employer] Other XR knee RT 2V IMPRESSION: [employer] Other XR knee RT 2V NO EVIDENCE OF HARDWARE COMPLICATION. [facility] Other XR knee RT 2V Impression dictated by: Audie Mondragon Jr., D.OEdgard11/02/2022 3:18 PM [facility] Other XR knee RT 2V Dictation Location: [place] [address] [facility] Other XR knee RT 2V Transcribed By: PWS 11/02/22 [facility] Other XR knee RT 2V Dictated By: Audie Mondragon Jr, DO 11/02/22 [facility] Other XR knee RT 2V Signed By: [facility] Other XR knee RT 2V 11/02/22 [facility] [employer] Other Vital Signs Date Time Vital Sign Value Performing Clinician Facility 03-09-2025 13:35-0400 Body height 161.29 cm Katelynn Clark MD Work Phone: [facility] 03-09-2025 13:35-0400 Body mass index (BMI) [Ratio] 34.5 kg/m2 Katelynn Clark MD Work Phone: [facility] 03-09-2025 13:35-0400 Body weight 89.81 kg Katelynn Clark MD Work Phone: [facility] 03-09-2025 13:35-0400 Diastolic blood pressure 79 mm[Hg] Katelynn Clark MD Work Phone: [facility] 03-09-2025 13:35-0400 Heart rate 78 /min Katelynn Clark MD Work Phone: [facility] 03-09-2025 13:35-0400 Respiratory rate 14 /min Katelynn Clark MD Work Phone: [facility] 03-09-2025 13:35-0400 SaO2% (BldA) [Mass fraction] 97 % Katelynn Clark MD Work Phone: [facility] 03-09-2025 13:35-0400 Systolic blood pressure 124 mm[Hg] Katelynn Clark MD Work Phone: [facility] 12-30-2024 13:49-0400 Body height 161.29 cm Katelynn Clark MD Work Phone: [facility] 12-30-2024 13:49-0400 Body mass index (BMI) [Ratio] 34.9 kg/m2 Katelynn Clark MD Work Phone: [facility] 12-30-2024 13:49-0400 Body weight 90.71 kg Katelynn Clark MD Work Phone: [facility] 12-30-2024 13:49-0400 Diastolic blood pressure 69 mm[Hg] Katelynn Clark MD Work Phone: [facility] 12-30-2024 13:49-0400 Heart rate 76 /min Katelynn Clark MD Work Phone: [facility] 12-30-2024 13:49-0400 Systolic blood pressure 117 mm[Hg] Katelynn Clark MD Work Phone: [facility] 11-18-2024 11:01-0400 Body height 162.5 cm Vickey Mata MD Work Phone: [facility] 11-18-2024 11:01-0400 Body mass index (BMI) [Ratio] 34.18 kg/m2 Vickey Mata MD Work Phone: [facility] 11-18-2024 11:01-0400 Body weight 90.27 kg Vickey Mata MD Work Phone: [facility] 11-03-2024 13:02-0400 Body height 161.29 cm [facility] 11-03-2024 13:02-0400 Body mass index (BMI) [Ratio] 34.7 kg/m2 [facility] 11-03-2024 13:02-0400 Body weight 90.26 kg [facility] 11-03-2024 13:02-0400 Diastolic blood pressure 80 mm[Hg] [facility] 11-03-2024 13:02-0400 Heart rate 88 /min [facility] 11-03-2024 13:02-0400 Systolic blood pressure 147 mm[Hg] [facility] 05-30-2024 10:57-0500 Body height 161.29 cm [facility] 05-30-2024 10:57-0500 Body mass index (BMI) [Ratio] 35 kg/m2 [facility] 05-30-2024 10:57-0500 Body weight 91.17 kg [facility] 05-30-2024 10:57-0500 Diastolic blood pressure 76 mm[Hg] [facility] 05-30-2024 10:57-0500 Heart rate 66 /min [facility] 05-30-2024 10:57-0500 Systolic blood pressure 116 mm[Hg] [facility] 02-28-2024 08:47-0400 Body height 162.6 cm Greer Su MD Work Phone: [facility] 02-28-2024 08:47-0400 Body mass index (BMI) [Ratio] 35.19 kg/m2 Greer Su MD Work Phone: [facility] 02-28-2024 08:47-0400 Body weight 92.99 kg Greer Su MD Work Phone: [facility] 02-28-2024 08:47-0400 Diastolic blood pressure 82 mm[Hg] Greer Su MD Work Phone: [facility] 02-28-2024 08:47-0400 Heart rate 94 /min Greer Su MD Work Phone: [facility] 02-28-2024 08:47-0400 SaO2% (BldA) [Mass fraction] 100 % Greer Su MD Work Phone: [facility] 02-28-2024 08:47-0400 Systolic blood pressure 118 mm[Hg] Greer Su MD Work Phone: [facility] 01-24-2024 08:52-0400 Body height 162.6 cm Greer Su MD Work Phone: [facility] 01-24-2024 08:52-0400 Body mass index (BMI) [Ratio] 34.84 kg/m2 Greer Su MD Work Phone: [facility] 01-24-2024 08:52-0400 Body weight 92.08 kg Greer Su MD Work Phone: [facility] 01-24-2024 08:52-0400 Diastolic blood pressure 91 mm[Hg] Greer Su MD Work Phone: [facility] 01-24-2024 08:52-0400 Heart rate 116 /min Greer Su MD Work Phone: [facility] 01-24-2024 08:52-0400 SaO2% (BldA) [Mass fraction] 99 % Greer Su MD Work Phone: [facility] 01-24-2024 08:52-0400 Systolic blood pressure 157 mm[Hg] Greer Su MD Work Phone: [facility] 01-03-2024 10:35-0400 Diastolic blood pressure 87 mm[Hg] Greer Su MD Work Phone: [facility] 01-03-2024 10:35-0400 SaO2% (BldA) [Mass fraction] 98 % Greer Su MD Work Phone: [facility] 01-03-2024 10:35-0400 Systolic blood pressure 145 mm[Hg] Greer Su MD Work Phone: [facility] 01-03-2024 10:33-0400 Body height 162.6 cm Greer Su MD Work Phone: [facility] 01-03-2024 10:33-0400 Body mass index (BMI) [Ratio] 34.84 kg/m2 Greer Su MD Work Phone: [facility] 01-03-2024 10:33-0400 Body weight 92.08 kg Greer Su MD Work Phone: [facility] 01-03-2024 10:33-0400 Heart rate 116 /min Greer Su MD Work Phone: [facility] 12-13-2023 14:51-0400 Body height 161.29 cm [facility] 12-13-2023 14:51-0400 Body mass index (BMI) [Ratio] 35.4 kg/m2 [facility] 12-13-2023 14:51-0400 Body weight 92.07 kg [facility] 10-15-2023 11:18-0400 Body height 161.29 cm MD Katelynn Clark Work Phone: [facility] 10-15-2023 11:18-0400 Body mass index (BMI) [Ratio] 36.6 kg/m2 MD Katelynn Clark Work Phone: [facility] 10-15-2023 11:18-0400 Body weight 95.36 kg MD Katelynn Clark Work Phone: [facility] 10-15-2023 11:18-0400 Diastolic blood pressure 81 mm[Hg] MD Katelynn Clark Work Phone: [facility] 10-15-2023 11:18-0400 Heart rate 77 /min MD Katelynn Clark Work Phone: [facility] 10-15-2023 11:18-0400 Systolic blood pressure 142 mm[Hg] MD Katelynn Clark Work Phone: [facility] 09-13-2023 11:54-0500 Body height 161.29 cm MD Katelynn Clark Work Phone: [facility] 09-13-2023 11:54-0500 Body mass index (BMI) [Ratio] 37.8 kg/m2 MD Kaetlynn Clark Work Phone: [facility] 09-13-2023 11:54-0500 Body temperature 97.6 [degF] MD Katelynn Clark Work Phone: [facility] 09-13-2023 11:54-0500 Body weight 98.42 kg MD Katelynn Clark Work Phone: [facility] 09-13-2023 11:54-0500 Diastolic blood pressure 82 mm[Hg] MD Katelynn Clark Work Phone: [facility] 09-13-2023 11:54-0500 Heart rate 89 /min MD Katelynn Clark Work Phone: [facility] 09-13-2023 11:54-0500 Respiratory rate 16 /min MD Katelynn Clark Work Phone: [facility] 09-13-2023 11:54-0500 SaO2% (BldA) [Mass fraction] 99 % MD Katelynn Clark Work Phone: [facility] 09-13-2023 11:54-0500 Systolic blood pressure 124 mm[Hg] MD Katelynn Clark Work Phone: [facility] 08-30-2023 10:41-0500 Body height 161.29 cm [facility] 08-30-2023 10:41-0500 Body mass index (BMI) [Ratio] 37.8 kg/m2 [facility] 08-30-2023 10:41-0500 Body weight 98.42 kg [facility] 08-30-2023 10:41-0500 Diastolic blood pressure 81 mm[Hg] [facility] 08-30-2023 10:41-0500 Heart rate 87 /min [facility] 08-30-2023 10:41-0500 Systolic blood pressure 155 mm[Hg] [facility] 08-23-2023 09:20-0500 Body height 161.29 cm Ny Jin Other [facility] [employer] Other 08-23-2023 09:20-0500 Body mass index (BMI) [Ratio] 37.48 kg/m2 Ny Jin Other [employer] [facility] [employer] Other 08-23-2023 09:20-0500 Body weight 97.52 kg Ny Jin Other [facility] Other 08-16-2023 10:00-0500 Body height 161.29 cm Katelynn Clark Other [facility] 08-16-2023 10:00-0500 Body mass index (BMI) [Ratio] 37.83 kg/m2 Katelynn Clark Other [facility] Other 08-16-2023 10:00-0500 Body weight 98.43 kg Katelynn Clark Other [employer] Other 08-16-2023 10:00-0500 Body weight 98.42 kg [facility] 08-16-2023 10:00-0500 Diastolic blood pressure 81 mm[Hg] Katelynn Clark Other [facility] 08-16-2023 10:00-0500 Systolic blood pressure 147 mm[Hg] Katelynn Clark Other [facility] 05-29-2023 11:30-0500 Body height 161.29 cm Katelynn Clark Other [facility] [employer] Other 05-29-2023 11:30-0500 Body mass index (BMI) [Ratio] 37.41 kg/m2 Katelynn Clark Other [facility] Other 05-29-2023 11:30-0500 Body weight 97.34 kg Katelynn Clark Other [facility] Other 05-29-2023 11:30-0500 Diastolic blood pressure 85 mm[Hg] Katelynn Clark Other [facility] Other 05-29-2023 11:30-0500 Respiratory rate 16 /min Katelynn Clark Other [facility] Other 05-29-2023 11:30-0500 Systolic blood pressure 174 mm[Hg] Katelynn Clark Other [facility] Other 03-15-2023 08:45-0400 Body height 161.29 cm Jose Webster II Other [facility] Other 03-15-2023 08:45-0400 Body mass index (BMI) [Ratio] 38.01 kg/m2 Jose Webster II Other [facility] Other 03-15-2023 08:45-0400 Body weight 98.88 kg Jose Webster II Other [facility] Other 01-18-2023 11:15-0400 Body height 161.29 cm Katelynn Clark Other [facility] Other 01-18-2023 11:15-0400 Body mass index (BMI) [Ratio] 38.01 kg/m2 Katelynn Clark Other [facility] Other 01-18-2023 11:15-0400 Body weight 98.88 kg Katelynn Clark Other [facility] Other 01-18-2023 11:15-0400 Diastolic blood pressure 81 mm[Hg] Katelynn Clark Other [facility] Other 01-18-2023 11:15-0400 Systolic blood pressure 167 mm[Hg] Katelynn Clark Other [facility] Other 12-12-2022 13:45-0400 Body height 161.29 cm Katelynn Clark Other [facility] Other 12-12-2022 13:45-0400 Body mass index (BMI) [Ratio] 37.48 kg/m2 Katelynn Clark Other [facility] Other 12-12-2022 13:45-0400 Body weight 97.52 kg Katelynn Clark Other [facility] Other 12-12-2022 13:45-0400 Diastolic blood pressure 59 mm[Hg] Katelynn Clark Other [facility] Other 12-12-2022 13:45-0400 Systolic blood pressure 147 mm[Hg] Katelynn Clark Other [facility] Other 11-02-2022 15:45-0400 Body height 167.64 cm Jose Webster II Other [facility] Other 12-07-2021 11:45-0400 Body height 167.64 cm Jose Webster II Other [facility] Other 12-07-2021 11:45-0400 Body mass index (BMI) [Ratio] 34.7 kg/m2 Jose Reinaldo II Other [facility] Other 12-07-2021 11:45-0400 Body weight 97.52 kg Jose Webster II Other [facility] Other 11-16-2021 11:45-0400 Body height 167.64 cm Jose Webster II Other [facility] Other 11-16-2021 11:45-0400 Body mass index (BMI) [Ratio] 34.7 kg/m2 Jose Webster II Other [facility] Other 11-16-2021 11:45-0400 Body weight 97.52 kg Jose Reinaldo II Other [facility] Other 10-06-2021 16:00-0400 Body height 167.64 cm Jose Reinaldo II Other [facility] Other 10-06-2021 16:00-0400 Body mass index (BMI) [Ratio] 34.7 kg/m2 Jose Reinaldo II Other [facility] Other 10-06-2021 16:00-0400 Body weight 97.52 kg Jose Webster II Other [facility] Other 09-13-2021 16:15-0500 Body height 167.64 cm Wayne Mccallum Other [facility] Other 09-13-2021 16:15-0500 Body mass index (BMI) [Ratio] 34.7 kg/m2 Wayne Mccallum Other [facility] Other 09-13-2021 16:15-0500 Body weight 97.52 kg Wayne Mccallum Other [facility] Other Encounters Encounter Date Encounter Type Care Provider Facility Start: 03-09-2025 End: 03-09-2025 ambulatory Katelynn Clark MD Work Phone: [facility] Work Phone: Start: 03-09-2025 End: 03-09-2025 Patient encounter procedure Katelynn Clark MD -[facility] Work Phone: Start: 02-19-2025 End: 02-19-2025 ambulatory [facility] Start: 12-30-2024 End: 12-30-2024 Patient encounter procedure Katelynn Clark MD -[facility] Work Phone: Start: 12-04-2024 ambulatory LUIS ALBERTO [facility] Start: 11-21-2024 End: 11-26-2024 Evaluation and management of inpatient Tod Zacarias MD Facility:[facility] Start: 11-18-2024 End: 11-20-2024 ambulatory [facility] Start: 11-18-2024 Encounter for other preprocedural examination [facility] Start: 11-18-2024 End: 11-20-2024 Preoperative state Vickey Mata MD Work Phone: [facility] Work Phone: Start: 11-18-2024 End: 11-20-2024 Subsequent hospital visit by physician Vickey Mata MD Work Phone: [facility] Comment on above: Pre-operative cleara nce; Leg edema; Paroxysmal atrial fibrillation (HCC) Start: 11-14-2024 End: 11-14-2024 ambulatory [facility] Start: 11-14-2024 End: 11-14-2024 Encounter for other preprocedural examination [facility] Start: 11-13-2024 End: 11-13-2024 ambulatory Luis Alberto Perez MD Facility:[facility] Start: 11-06-2024 End: 11-06-2024 ambulatory NON STAFF [facility] Work Phone: Start: 11-06-2024 End: 11-06-2024 Departed Referred [facility] Start: 11-03-2024 End: 11-03-2024 ambulatory [facility] Work Phone: Start: 11-03-2024 End: 11-03-2024 Patient encounter procedure [facility] Work Phone: Start: 05-30-2024 End: 05-30-2024 ambulatory [facility] Work Phone: Start: 05-30-2024 End: 05-30-2024 Patient encounter procedure [facility] Work Phone: Start: 05-22-2024 Non-patient / Non-visit [facility] Work Phone: Start: 02-28-2024 End: 02-28-2024 Office outpatient visit 10 minutes Greer Su MD Work Phone: [facility] Comment on above: Venous ulcer of left leg (CMS-HCC) (Primary Dx); Critical limb ischemia of left lower extremity with gangrene (CMS-HCC) Start: 01-24-2024 End: 01-24-2024 Office outpatient visit 25 minutes Greer Su MD Work Phone: [facility] Comment on above: Venous ulcer of left leg ([facility]-HCC) (Primary Dx) Start: 01-03-2024 End: 01-03-2024 Office outpatient new 45 minutes Greer Su MD Work Phone: [facility] Comment on above: 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 ([facility]-HCC) (Primary Dx); Abnormal ankle brachial index (ELVIN); Venous ulcer of left leg ([facility]-HCC) Start: 12-13-2023 End: 12-13-2023 ambulatory [facility] Work Phone: Start: 12-13-2023 End: 12-13-2023 Patient encounter procedure [facility] Work Phone: Start: 10-15-2023 End: 10-15-2023 ambulatory MD Katelynn Clark Work Phone: [facility] Work Phone: Start: 10-15-2023 End: 10-15-2023 Patient encounter procedure MD Katelynn Clark Work Phone: [facility] Work Phone: Start: 10-04-2023 End: 10-04-2023 ambulatory MD Katelynn Clark Work Phone: [facility] Work Phone: Start: 10-04-2023 End: 10-04-2023 Patient encounter procedure MD Katelynn Clark Work Phone: [facility] Work Phone: Start: 09-13-2023 End: 09-13-2023 Patient encounter procedure MD Katelynn Clark Work Phone: [facility] Start: 09-13-2023 End: 09-13-2023 Patient encounter procedure MD Katelynn Clark Work Phone: [facility] Work Phone: Start: 08-30-2023 End: 08-30-2023 ambulatory [facility] Work Phone: Start: 08-30-2023 End: 08-30-2023 Patient encounter procedure [facility] Work Phone: Start: 08-27-2023 End: 08-27-2023 ambulatory Ny Annabel Other [facility] Other Start: 08-27-2023 Telephone encounter Ny Jin [employer] Start: 08-23-2023 End: 08-23-2023 ambulatory Ny Jin Other [facility] Other Start: 08-23-2023 Office outpatient ne w 45 minutes Ny Jin [facility] Start: 08-16-2023 End: 08-16-2023 ambulatory Katelynn Clark Other [facility] Other Start: 08-16-2023 Office outpatient vi sit 15 minutes Katelynn Clark [facility] Start: 08-16-2023 Telephone encounter Katelynn Clark [facility] Start: 08-16-2023 End: 08-16-2023 Patient encounter procedure [facility]- Start: 08-13-2023 End: 08-13-2023 ambulatory Jose Najera II Other [facility] Other Start: 08-13-2023 Telephone encounter Jose Najera II [facility] Start: 07-03-2023 End: 07-03-2023 ambulatory Katelynn Clark Other [facility] Other Start: 07-03-2023 Telephone encounter Katelynn Clark [facility] Start: 06-27-2023 Patient encounter procedure [facility]- Start: 06-18-2023 End: 06-18-2023 ambulatory ANABELLA STEAWRT Not Available Start: 06-11-2023 End: 06-11-2023 ambulatory Katelynn Clark Other [facility] Other Start: 06-11-2023 Telephone encounter Katelynn Clark [facility] Start: 06-01-2023 End: 06-01-2023 ambulatory ANABELLA STEWART Not Available Start: 05-29-2023 End: 05-29-2023 ambulatory Katelynn Clark Other [facility] Other Start: 05-29-2023 Office outpatient vi sit 15 minutes Katelynn Clark [facility] Start: 05-29-2023 Telephone encounter Katelynn Clark [facility] Start: 05-14-2023 End: 05-14-2023 ambulatory Jose Webster II Other [facility] Other Start: 05-14-2023 Telephone encounter Jose Webster II [facility] Start: 04-02-2023 End: 04-02-2023 ambulatory Katelynn Clark Other [facility] Other Start: 04-02-2023 Telephone encounter Katelynn Clark [facility] Start: 03-15-2023 End: 03-15-2023 ambulatory Jose Webster II Other [facility] Other Start: 03-15-2023 Office outpatient vi sit 25 minutes Jose Webster II [facility] Start: 02-26-2023 End: 02-26-2023 ambulatory Katelynn Clark Other [facility] Other Start: 02-26-2023 Telephone encounter Katelynn Clark [facility] Start: 02-08-2023 End: 02-08-2023 ambulatory Jose Reinaldo II Other [facility] Other Start: 02-08-2023 Office outpatient vi sit 25 minutes Jose Webster II [facility] Start: 01-19-2023 End: 01-19-2023 ambulatory Katelynn Clark Other [facility] Other Start: 01-19-2023 Telephone encounter Katelynn Clark [facility] Start: 01-18-2023 End: 01-18-2023 ambulatory Katelynn Clark Other [facility] Other Start: 01-18-2023 Office outpatient vi sit 15 minutes Katelynn Clark [facility] Start: 01-17-2023 End: 01-17-2023 ambulatory Jose Webster II Other [facility] Other Start: 01-17-2023 Telephone encounter Jose Webster II [facility] Start: 12-13-2022 End: 12-13-2022 ambulatory Katelynn Clark Other [facility] Other Start: 12-13-2022 Telephone encounter Jose Webster II [facility] Start: 12-12-2022 End: 12-13-[address] KATELYNN CLARK Facility: Start: 12-12-2022 Office outpatient vi sit 15 minutes Katelynn Clark [facility] Start: 11-02-2022 End: 11-02-2022 ambulatory Jose Reinaldo II Other [facility] Other Start: 11-02-2022 Office outpatient vi sit 25 minutes Jose Reinaldo II [facility] Start: 10-10-2022 End: 10-10-2022 ambulatory Jose Webster II Other [facility] Other Start: 10-10-2022 Telephone encounter Jose Webster II [facility] Start: 06-23-2022 End: 06-23-2022 ambulatory MD Katelynn Clark Work Phone: [facility] Work Phone: Start: 06-23-2022 End: 06-23-2022 Patient encounter procedure MD Katelynn Clark Work Phone: [facility] Start: 04-13-2022 End: 04-13-2022 ambulatory Jose Webster II Other [facility] Other Start: 04-13-2022 Telephone encounter Jose Reinaldo II [facility] Start: 03-06-2022 End: 03-06-2022 ambulatory Wayne Mccallum Other [facility] Other Start: 03-06-2022 Office outpatient vi sit 15 minutes Wayne Mccallum [facility] Start: 01-18-2022 (Post-Op) Post-Op Jose Reinaldo II [facility] Start: 01-18-2022 End: 01-18-2022 ambulatory Jose Webster II Other [facility] Other Start: 12-07-2021 (Post-Op) Post-Op Jose Reinaldo II [facility] Start: 12-07-2021 End: 12-07-2021 ambulatory Jose Webster II Other [facility] Other Start: 11-21-2021 Pre-procedure evalua tion check Jose Reinaldo II Other [facility] Other Start: 11-16-2021 End: 11-16-2021 ambulatory Jose Webster II Other [facility] Other Start: 11-16-2021 Office outpatient vi sit 15 minutes Jose Webster II [facility] Start: 10-14-2021 (Prolonged) Prolonge d Services Jose Webster II [facility] Start: 10-14-2021 End: 10-14-2021 ambulatory Jose Reinaldo II Other [facility] Other Start: 10-06-2021 End: 10-06-2021 ambulatory Jose Webster II Other [facility] Other Start: 10-06-2021 Office outpatient vi sit 25 minutes Jose Najera II [facility] Start: 09-13-2021 End: 09-13-2021 ambulatory Jose Najera II Other [facility] Other Start: 09-13-2021 Office outpatient vi sit 25 minutes Wayne Kerrymateo [facility] Start: 09-13-2021 Telephone encounter Jose Najera II [facility] Start: 08-09-2021 End: 08-09-2021 ambulatory Wanye Paynemateo Other [facility] Other Start: 08-09-2021 Telephone encounter Wayne Mccallum [facility] Start: 07-28-2021 End: 07-28-2021 ambulatory Wayne Mccallum Other [facility] Other Start: 07-28-2021 Office outpatient vi sit 15 minutes Wayne Mccallum [facility] Start: 06-27-2021 Adult health examination Renny Najera II Other [facility] Other Start: 05-12-2021 Office outpatient vi sit 15 minutes Wayne Kerrymateo [facility] Procedures Date Procedure Procedure Detail Performing Clinician Start: 11-18-2024 Echo tthrc r-t 2d w/wom-mode compl spec&colr d Vickey Mata MD Work Phone: Start: 09-13-2023 Ankle brachial press ure index MD Katelynn Clark Work Phone: Start: 06-23-2022 Radiologic examinati on of knee MD Katelynn Clark Work Phone: Start: 12-27-2017 Screening for malign ant neoplasm of colon Jose Najera II Other Start: 11-25-2015 General examination of patient Jose Najera II Other Start: 11-25-2015 Screening mammography Jeremías Najera II Other Screening for malign ant neoplasm of breast Jose Najera II Other Plan of Treatment Date Care Activity Detail Author Start: 01-23-2025 Adult BMI Screening Adult BMI Screen ing [facility] Start: 01-23-2025 Tobacco Screening Tobacco Screening [facility] Start: 01-02-2025 Adult BMI Screening Adult BMI Screen ing [facility] Start: 01-02-2025 Tobacco Screening Tobacco Screening [facility] Start: 11-27-2024 COVID-19 Vaccine () COVID-19 Vaccine () [facility] [employer] [facility] Start: 11-18-2024 Annual Wellness Visi t (Medicare) Annual Wellness Visit (Medicare) [facility] Start: 11-06-2024 Urine culture [facility] Start: 11-06-2024 Bacteria identified in Urine by Culture Urine Culture [facility] Start: 03-16-2024 Influenza vaccination Influenza Vacc ine [facility] Start: 02-28-2024 End: 02-28-2024 Patient encounter procedure 02/28/2024 8:30 AM EDT Office Visit [facility] [address] [place] [address] Greer Su MD [address], [address] [address] [facility] Start: 01-24-2024 End: 01-24-2024 Patient encounter procedure 01/24/2024 9:20 AM EDT Office Visit [facility] [address] [place] [address] Greer Su MD [address], [address] [address] [facility] Start: 01-03-2024 End: 01-02-2025 US.doppler Extremity arteries - bilateral for physiologic artery study Vas art doppler lwr bilat mult lev/PVR Vascular Ultrasound Routine Abnormal ankle brachial index (ELVIN) Critical limb ischemia of left lower extremity with gangrene (CMS-HCC) Venous ulcer of left leg (CMS-HCC) Expected: 01/03/2024, Expires: 01/02/2025 [email or web address] Comment on above: Expected: 01/03/2024 , Expires: 01/02/2025 Start: 01-03-2024 End: 01-02-2025 US.doppler Lower extremity vein - bilateral Vas venous duplex insufficiency lwr bi Vascular Ultrasound Routine Abnormal ankle brachial index (ELVIN) Critical limb ischemia of left lower extremity with gangrene (CMS-HCC) Venous ulcer of left leg (CMS-HCC) Expected: 01/03/2024, Expires: 01/02/2025 [employer] Work Phone: Comment on above: Expected: 01/03/2024 , Expires: 01/02/2025 Start: 12-27-2023 COVID-19 Vaccine ( season) COVID-19 Vaccine ( season) [facility] Start: 10-15-2023 Patient referral [facility] Work Phone: Start: 05-18-2018 Pneumococcal 50+ yea rs Vaccine (2 of 2 - PPSV23) Pneumococcal 50+ years Vaccine (2 of 2 - PPSV23) [facility] Start: 2013 Fall Risk Screening Fall Risk Screen ing [employer] Start: 2003 Screening for osteoporosis DEXA (modify frequency per FRAX score) [facility] Start: 1998 Administration of varicella zoster vaccine Zoster (Shingles) Vaccine (1 of 2) [email or web address] Start: 1998 Shingles vaccine (1 of 2) Shingles vaccine (1 of 2) [facility] Start: 1967 DTaP,Tdap and Td Vaccines (1 - Tdap) DTaP,Tdap and Td Vaccines (1 - Tdap) [facility] Start: 1967 DTaP/Tdap/Td vaccine (1 - Tdap) DTaP/Tdap/Td vaccine (1 - Tdap) [facility] [employer] [employer] [facility] Start: 1966 Adult BMI Follow Up Plan Adult BMI Follow Up Plan [employer] Start: 1966 Hepatitis C screening Hepatitis C sc reen [facility] [employer] [employer] [facility] Start: 1960 Depression Screen Depression Screen [facility] Start: 1960 Depression Screening Depression Scre ening [employer] Start: 1948 Medicare Annual Well ness Visit Medicare Annual Wellness Visit [facility] Comprehensive metabo lic 2000 panel - Serum or Plasma [facility] MG Breast - bilatera l Screening [facility] Patient referral [facility] Work Phone: [facility] Immunizations Immunization Date Immunization Notes Care Provider Fa jaime 05-29-2023 influenza virus vaccine, unspecified formulation [facility] 05-29-2023 influenza, high dose seasonal, preservative-free Katelynn Clark Other [facility] [employer] Other 04-11-2021 COVID-19 mRNA, Comirnaty (Pfizer) MD Katelynn Clark Work Phone: [facility] 09-07-2020 COVID-19 mRNA, Comirnaty (Pfizer) MD Katelynn Clark Work Phone: [facility] 08-17-2020 COVID-19 mRNA, Comirnaty (Pfizer) MD Katelynn Clark Work Phone: [facility] 05-24-2020 Kenalog -40 mg Wayne Mccallum Other [employer] [facility] [employer] Other 03-31-2020 influenza virus vaccine, split virus (incl. purified surface antigen) Jose Najera II Other [facility] Other 03-31-2020 influenza virus vaccine, unspecified formulation [facility] 08-11-2019 Kenalog -40 mg Wayne Mccallum Other [facility] Other 11-04-2018 Kenalog -40 mg Wayne Payneer Other [facility] Other 03-19-2018 Supquincy Mccallum Other [facility] Other 03-12-2018 Theraputic Injection Wanye Mccallum Other [facility] Other 03-05-2018 Supquincy Mccallum Other [facility] Other 02-26-2018 Daya Mccallum Other [facility] Other 02-19-2018 Daya Mccallum Other [facility] Other 11-27-2017 Kenalog -40 mg Wayne Mccallum Other [facility] Other 05-31-2016 influenza virus vaccine, split virus (incl. purified surface antigen) Jose Webster II Other [facility] Other 05-31-2016 influenza virus vaccine, unspecified formulation [facility] 05-31-2016 pneumococcal polysaccharide vaccine, 23 valent Jose Reinaldo II Other [facility] Payers Date Payer Category Payer Self-pay [id number] 2023 Medicare [id number] 2023 Unknown 2019 Medicare [id number] 2013 Medicare [id number] 1959 Medicare [id number] 2.1 [id number] 1959 Unknown [id number] 2.1 [id number] 1948 Unknown [id number] 2.16.84 [id number] 1948 Unknown [id number] 2.16.840 .[id number] 1948 Unknown [id number] 2.16.840 .[id number] 1948 Unknown [id number] 2.16.8 [id number] 1948 Unknown [id number] 2.16. [id number] 1948 Unknown [id number] 2.16. [id number] 1948 Unknown [id number] 2.16.8 [id number] 1948 Unknown [id number] 2.16.8 [id number] Unknown Karen BC/JM [id number] Unknown [id number] 2.16.8 [id number] Social History Date Type Detail Facility Unknown if ever smoked [facility] Other Start: 01-03-2024 End: 02-28-2024 Sex Assigned At [facility] [employer] Other Start: 10-26-2021 End: 07-13-2024 Tobacco smoking status NHIS Never smoked tobacco (finding) [facility] Start: 1950 Sex Assigned At Female F [facility] Start: 05-30-2024 End: 11-14-2024 Sex Female (finding) [facility] Start: 01-03-2024 Tobacco use and exposure Smokeless tobacco [facility]-user [facility] Start: 01-03-2024 End: 08-15-2024 Alcoholic beverage intake Current drinker of alcohol (finding) [employer] Start: 01-03-2024 End: 02-28-2024 Alcoholic beverage intake [employer] Within the past 12 months we worried whether our food would run out before we got money to buy more. Never True [employer] Start: 1950 Sex assigned at Not on file P Musement [facility] Tobacco smoking status [facility] Tobacco smoking consumption unknown [facility] Medical Equipment Procedure Code Equipment Code Equipment Origin al Text Equipment Identifier Dates Arthroplasty, knee, total, minimally invasive Orthopaedic cement, non-medicated [id number] FDA Start: 10-24-2021 Arthroplasty, knee, total, minimally invasive Uncoated knee femur prosthesis, metallic [id number] FDA Start: 10-24-2021 Arthroplasty, knee, total, minimally invasive Tibial insert [id number] FDA Start: 10-24-2021 Arthroplasty, knee, total, minimally invasive Polyethylene patella prosthesis [id number] FDA Start: 10-24-2021 Arthroplasty, knee, total, minimally invasive Knee stem [id number] FDA Start: 10-24-2021 Arthroplasty, knee, total, minimally invasive Uncoated knee tibia prosthesis, metallic [id number] FDA Start: 10-24-2021 Clinical Notes 05-12-2021 to 02-19-2025 Note Date & Type Note Facility 02-19-2025 Note [facility] Note Reason for cardiology visit: Follow-up on paroxysmal atrial fibrillation, PAD, hypertension, and hyperlipidemia HPI: 02/19/2025 Patient is here today for follow-up visit. Patient reports that she has been doing well. She is still in physical therapy and she uses a cane after her knee replacement. She reports shortness of breath with exertion only in the heat. She reports that she had some legs edema after the surgery but it is much better now. She denies any chest pain or orthopnea or paroxysmal nocturnal dyspnea or dizziness or palpitations. She has not been checking her blood pressure at home 11/14/2024 Kami Fink is a 74 y.o. female with history of hypertension, hyperlipidemia, DVT on Eliquis, peripheral arterial disease, and left lower extremity venous ulcer which have healed. No prior history of coronary artery disease.. She reports that over the last 12 months she has been using a walker due to her left knee however prior to that she used to walk and swim and she denies any chest pain or shortness of breath with walking. She denies orthopnea or paroxysmal nocturnal dyspnea. She denies any palpitations. She reports occasional lightheadedness when she stands up. She denies syncope or near syncope. She reports legs edema and prior venous ulcer which has healed. She denies snoring or being sleepy or tired during the daytime She never been a smoker. She drinks alcohol occasionally. She denies any illicit drugs Family history her mother due to MN at age 69. Her father had congestive heart failure and pacemaker. ROS: All systems were reviewed and they were negative except for the positive findings noted above in the history Past Medical History She has a past medical history of Abnormal ECG, Atrial fibrillation (CMS/HCC), Deep vein thrombosis (CMS/HCC), and Hypertension. Surgical History She has a past surgical history that includes Total hip arthroplasty (Bilateral) and Removal prosthesis total knee w/ or w/o insertion spacer (Right). Social History She reports that she has never smoked. She has never used smokeless tobacco. She reports current alcohol use. She reports that she does not use drugs. Family History Family History Problem Relation Name Age of Onset Heart attack Mother Heart failure Father Coronary artery disease Sister Allergies Patient has no known allergies. Medications Current Outpatient Medications: acetaminophen 500 mg capsule, Take 500 mg by mouth every 6 (six) hours if needed., Disp: , Rfl: atorvastatin (Lipitor) 40 mg tablet, Take 40 mg by mouth in the morning., Disp: , Rfl: Eliquis 5 mg tablet, Take 5 mg by mouth in the morning and at bedtime., Disp: , Rfl: famotidine (Pepcid) 20 mg tablet, Take by mouth in the morning., Disp: , Rfl: metoprolol tartrate (Lopressor) 100 mg tablet, Take 100 mg by mouth twice a day., Disp: , Rfl: verapamil SR (Calan-SR) 180 mg ER tablet, Take 180 mg by mouth at bedtime., Disp: , Rfl: Last Recorded Vitals Visit Vitals BP (!) 157/93 (BP Location: Right arm, Patient Position: Sitting) Pulse 83 Ht 1.626 m (5' 4 ) Wt 88 kg (194 lb) SpO2 98% BMI 33.30 kg/m??? Smoking Status Never BSA 1.99 m??? Physical Examination: GENERAL: alert and oriented x3, well developed, in no acute distress. HEAD: atraumatic, normocephalic. EYES: BARBI, EOMI. NECK: trachea midline, no JVD present, no carotid bruits present. CARDIAC: S1, S2 present. Irregular irregularity, no murmur, rubs, or gallops. RESPIRATORY: CTAB, no increased effort of breathing, no rales, rhonchi, or wheezing. ABDOMEN: soft, nontender, nondistended. EXTREMITIES: Trace edema with significant skin discoloration consistent with venous stasis bilaterally NEURO: strength/sensation equal and symmetric in bilateral upper and lower extremities. PSYCH: appropriate mood, affect, and judgement. Labs: 11/05/2024 White blood count 7.1, hemoglobin 13.6, hematocrit 40.2, platelets 188 INR 1.06 Sodium 141, potassium 4.1, BUN 34, creatinine 1.4, GFR 37, glucose 106, calcium 9.7 Total bilirubin 0.6, AST 22, ALT 33, alk phos 85, total protein 6.4, albumin 3.5 06/13/2023 HbA1c 5.2% next Triglyceride 115, cholesterol 200, LDL 109, HDL 68 TSH 3.4 Last Images: EKG 11/05/2024 showed atrial fibrillation, ventricular rate 59 bpm, poor R progression in V1-V3 consider old septal infarct. 3-day event monitor 11/18/2024 - 11/21/2024 Echo 11/19/2024 at [facility] in [place] Lower extremities Doppler study 01/10/2024 PVR waveforms: Right leg: Thigh: Moderate to severe peripheral arterial disease Above knee: Mild to moderate peripheral arterial disease Below knee: Mild to moderate peripheral arterial disease Right ankle: Moderate to severe peripheral arterial disease Left leg: Thigh: Moderate to severe peripheral arterial disease Above knee: Mild to moderate peripheral arterial disease Below knee: Mi (more content not included)... [facility] 12-30-2024 Evaluation note Diagnosis Onset Date Resolution Essential (primary) hypertension acute December 30, 2024 1:47pm Left conjunctivitis acute December 30, 2024 1:47pm Paroxysmal atrial fibrillation acute December 30, 2024 1:47pm Status post left knee replacement acute December 30, 2024 1:47pm Class 1 obesity with body mass index (BMI) of 34.0 to 34.9 in adult acute February 1:27pm Essential (primary) hypertension acute March 09 1:27pm Hyperlipidemia, unspecified acute March 09 1:27pm Medicare annual wellness visit, subsequent acute March 09, 025 1:27pm Paroxysmal atrial fibrillation acute March 09 1:27pm Screening mammogram for breast cancer acute March 09 1:27pm [facility] Work Phone: 1(134) 671-684105-15-2025 NoteAdmission Information Patient is a 74-year-old female who presented for evaluation of low pain. Patient sustained a fall last summer injuring her left knee. She had a displaced proximal tibia fracture which was treated nonsurgically. She went on to have a complex deformity and severe arthritis of the left knee. She had persistent pain despite nonsurgical management. Discussion was had with patient regarding left totalknee arthroplasty to assist with pain relief and allow for ambulation. Discussed procedure, risks, benefits, and alternatives including but not limited to bleeding, infection, neurovascular injury, hardware failure, fracture, stiffness, VTE, continued pain, need for additional surgery, and risks of anesthesia. Patient understood the risks and elected to proceed with surgery. Hospital Course Patient was admitted 11/21/2024 for pain control and IV antibiotics s/p left total knee arthroplasty.Postoperatively patient's pain was well-controlled. The patient remained neurovascularly intact. She was on prophylactic antibiotics for 24 hours postoperatively. Patient worked with physical therapyand was ambulating well with assistance. At time of discharge patient's calf was soft and nontenderwith no active signs of DVT. She was given DVT prophylaxis with home eliquis, SCDs, and teds. She remained medically stable during hospitalization. At time of discharge dressing was clean dry and intact Significant Findings Severe lateral tibial plateau deformity secondary to prior tibial plateau fracture. Medications Home acetaminophen, 1000 mg, Oral, q6hr, PRN atorvastatin 40 mg oral tablet, 40 mg= 1 tabs, Oral, Daily, HS, Still taking, not as prescribed: HS Eliquis 5 mg oral tablet, 5 mg= 1 tabs, Oral, BID famotidine 20 mg oral tablet, 20 mg= 1 tabs, Oral, Daily, PRN, PRN metoprolol succinate 100 mg oral tablet, extended release, 100 mg= 1 tabs, Oral, Daily, AM One A Day Women's Complete, 1 tabs, Oral, Daily, AM verapamil 180 mg/12 hours oral tablet, extended release, 180 mg= 1 tabs, Oral, Daily, AM Prescriptions oxyCODONE 5 mg oral tablet, 5 mg, Oral, q6hr, PRN pregabalin 75 mg oral capsule, 75 mg, Oral, q12hr, PRN Procedures and Treatment Provided left total knee arthroplasty Physical Exam Vitals & Measurements T: 36.5 ?C (Oral) HR: 66 (Monitored) RR: 19 BP: 142/56 SpO2: 99% HT: 163 cm HT: 163 cm WT: 91.0 kg WT: 91.0 kg (Dosing) BMI: 35 BMI: 35 General exam: Patient is a well-appearing female resting comfortably no acute distress. Patient is awake alert and orient x 3. Normal mood and affect. Left lower extremity: Dressing clean dry and intact. No erythema or drainage. Mild edema. Tenderness to palpation. Motor intact quad, hamstring, TA, GSC, EHL, FHL. Sensation intact to light touch SPN, DPN, sural, saphenous, deep nerve distribution. 1+ DP pulse. Toes well-perfused. No calf pain. Negative Homans. Additional Vitals No qualifying data available. Discharge Plan Atrial fibrillation, persistent Current use of anticoagulant therapy Hypertension (Complaint of) Status post total left knee replacement Postop day 4 status post left total knee arthroplasty Continue to elevate lower extremity DVT prophylaxis Bienvenido Ochoa teds A.m. hemoglobin 10.2. Hemodynamically stable. Continue to monitor. P.o. pain control PT/OT Dressing to remain in place until follow-up in 2 weeks. May shower over dressing. Ortho stable for transfer back to medsurg once cleared by medicine Anticipate DC to ECF when arranged and medically stable Outpatient follow-up in 2 weeks Orders: Discharge Patient Patient Discharge Condition stable Discharge Disposition ECF Electronically signed by Bella Yarbrough PA-C 11/27/24 00:55 EDT Patient care discussed with Bella Yarbrough PA-C. Agree with assessment and plan. Electronically signed by Luis Alberto Perez MD 11/27/24 13:[facility] Chief Complaint Left knee pain Reason for Consultation: Medical capacity management specialist Provider: Dr. Perez Date of Consult: 11/21/2024 Assessment/Plan Brief Hospital Course Summary: This is a 74 Years old Female with pertinent history of _GERD history of blood clots, recent A-fib diagnosis started on Eliquis this week, hypertension, PAD along with multiple medical problems brought in from Home with Left knee pain. Patient is admitted for left knee replacement,_. Assessment: GERD, dyslipidemia, constipation, overactive bladder Hypertension PAD Pain and surgical management per orthopedic/surgery Acute kidney insufficiency, on CKD 2, resolved, monitor History of blood clots, w/ recent diagnosis of atrial fibrillation (on Eliquis) A-fib w/ VR in 120s on 11/25 Plan: Patient transferred to ICU for closer monitoring On Eliquis, with home med metoprolol succinate 100 mg ER once daily Verapamil 180 mg ER, once daily EKG (11/25): A-fib with RVR, VR 120 Encouraged p.o. fluid intake On metoprolol tartrate 5 mg IV push q4h PRN for hr>110 with holding parameters for SBP<100 cardiology evaluation and recs to continue current dosing as above w/ close outpatient cardio follow up, upon discharge. > Continue with patient home medications small frequent meals head of bed up no late-night eating avoid triggering foods > Continue with Eliquis twice daily, monitor hemoglobin > Patient has a history of PAD monitor for circulation issues to the lower extremity surgical site. Currently with brisk cap refill Discussion: I discussed with the patient, family, patient's nurse, and care transition about the patient's plan of care. I reviewed other provider notes. Anticipated Discharge Location: [facility] Patient follow-up with PCP, cardiology, orthopedics, vascular surgery upon discharge. Medical necessity for ongoing hospitalization: ongoing symptom management Code Status: Full Resuscitation History of Present Illness Patient is seen postop left knee with past medical history of GERD history of blood clots, recent A-fib on Eliquis, hypertension, PAD with hospitalist consultation for medical management. Patient states to be tolerating p.o. intake, with pain well-controlled, on room air. Denies any chest pain or ti ghtness. Review of Systems All 14 point review of system discussed and pertinent listed on HPI. All other review of system arenegative. Objective General: Alert and oriented, well nourished, no acute distress. Eye: PERR, normal conjunctiva, no scleral icterus. HENT: Normocephalic, No active drainage noted to external ears, normal hearing, no active nasal drainage, no erythema or oral lesions noted. Neck: Supple, non-tender. Lungs: Clear to auscultation and percussion, non-labored respiration. Heart: S1, S2, Normal rate, irregularly, irregular rhythm Abdomen: Soft, non-tender, non-distended, normal bowel sounds. Musculoskeletal: Left knee postop wrap, cooling device in place brisk cap refill extremity warm Skin: Skin is warm, dry and pink, no rashes or lesions to exposed areas. Neurologic: Awake, alert, and oriented X3. Psychiatric: Cooperative, appropriate mood and affect. Vitals & Measurements T: 36.5 ?C (Oral) TMIN: 36.5 ?C (Oral) TMAX: 37.0 ?C (Oral) HR: 66 (Monitored) RR: 19 BP: 142/56 SpO2: 99% WT: 91.0 kg (Dosing) WT: 91.0 kg Additional Vitals No qualifying data available. Problem List/Past Medical History Ongoing GERD (gastroesophageal reflux disease) History of blood clots Hypertension Knee pain, left Nocturia Osteoarthritis of knee PAD (peripheral artery disease) Urinary urgency Historical No qualifying data Degree of Malnutrition: Degree of Malnutrition MQ: Does Not meet criteria Procedure/Surgical History LUMBAR RADIO FREQUENCY ABLATION Colonoscopy REMOVE TONSILS AND ADENOIDS Appendectomy RIGHT KNEE REPLACEMENT HIP REPLACEMENT, BILATERAL Arthroplasty Knee Total Replacement-MIS (Left) (11/21/2024) Medications Inpatient acetaminophen, 650 mg, Oral, QID acetaminophen, 650 mg, Oral, q4hr, PRN atorvastatin, 40 mg, Oral, HS (at bedtime) Benadryl, 25 mg, Oral, q4hr, PRN bisacodyl, 10 mg= 1 supp, Rectal, Daily, PRN Colace, 100 mg, Oral, BID Eliquis, 5 mg, Oral, BID famotidine, 20 mg, Oral, Daily, PRN labetalol, 5 mg= 1 mL, IV Push, q4hr, PRN magnesium hydroxide 8% oral suspension, 30 mL, Oral, Daily, PRN metoprolol succinate 100 mg oral tablet, extended release, 100 mg, Oral, Daily metoprolol tartrate, 5 mg= 5 mL, IV Push, q4hr, PRN MiraLax, 17 g= 1 EA, Oral, Daily Normal Saline Flush 0.9% injectable solution, 10 mL, IV Push, As Indicated, PRN oxyCODONE, 5 mg, Oral, q4hr, PRN oxyCODONE, 10 mg, Oral, q4hr, PRN pregabalin, 75 mg, Oral, q12hr, PRN verapamil 12 hour extended release, 180 mg, Oral, Daily Zofran, 4 mg= 2 mL, IV Push, q6hr, PRN Home acetaminophen, 1000 mg, Oral, q6hr, PRN atorvastatin 40 mg oral tablet, 40 (more content not included)...[facility]05-13-2025 NoteChief Complaint Left knee pain Reason for Consultation AF with RVR History of Present Illness 74F with history of PAD and hypertension admitted 11/21/24 after undergoing left total knee arthroplasty by Dr. Luis Alberto Perez. - Longstanding anticoagulation with Eliquis due to prior DVT and immobility related to knee arthritis - Incidental diagnosis of atrial fibrillation on preoperative ECG 11/05/24 - Saw Dr. Naz Barney, [facility] partition making machine operator, in [place] > He noted she was completed asymptomatic > Ventricular rates were controlled due to preexisting treatment with metoprolol tartrate 100 mgBID and verapamil SR 180 mg daily - TTE completed preoperatively at [facility] on 11/18 --> normal LVEF with mild leftatrial enlargement - Eliquis held preoperatively and started after surgery - Patient did not sleep well last night due to being uncomfortable - Pain in knee this morning --> heart rate was elevated - ECG showed AF at 120 bpm --> transferred to ICU and cardiology consultation requested - After morning medications administered, ventricular rate has remained controlled throughout the day - Patient denies palpitations, chest pain, shortness of breath, or lightheadedness Cardiac Testing Echocardiography 11/18/24: EF 50-55%, mild LVH, indeterminate diastolic function, mild LAE, mild MR, mild [place] ([facility]) Physical Exam Vitals & Measurements T: 37 ?C (Oral) HR: 86 (Monitored) RR: 15 BP: 119/57 SpO2: 100% Constitutional: No acute distress HEENT: No xanthelasmas Neck: No JVD Respiratory: Respirations even and non-labored, clear to auscultation bilaterally Cardiovascular: Chest wall is non-tender, no parasternal heaves, apical impulse not displaced, irregularly irregular rhythm with normal S1 and S2 and no murmurs, carotid upstrokes brisk and equal bilaterally withoutbruits, pedal pulses 2+ bilaterally, no pedal edema Extremities: No cyanosis Skin: No ecchymosis Psych: Normal orientation Assessment/Plan 1. Persistent atrial fibrillation on anticoagulation - AF initially diagnosed last month - Increased ventricular rates exacerbated by increased sympathetic tone due to pain this morning - Goal to keep resting HR <110 bpm - Continue metoprolol succinate 100 mg daily - Continue verapamil SR 180 mg daily - Continue Eliquis 5 mg BID for stroke prophylaxis - If ventricular rates adequately controlled tomorrow morning, patient may transfer back to regularmedical floor vs SNF for subacute rehab - Follow up with Dr. 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 Hypertension - Continue verapamil SR 180 mg daily - Continue metoprolol succinate 100 mg daily Will follow with you. Medical Decision Making Number of Problems Addressed: Moderate (1 chronic problem with exacerbation + 1 stable chronic problem) Data Reviewed/Analyzed: Moderate (reviewed results of 2 unique lab tests and echocardiogram report) Risk of Complications, Morbidity, or Mortality: Moderate (prescription drug management) Problem List/Past Medical History Ongoing GERD (gastroesophageal reflux disease) History of blood clots Hypertension Nocturia Osteoarthritis of knee PAD (peripheral artery disease) Urinary urgency Procedure/Surgical History LUMBAR RADIO FREQUENCY ABLATION Colonoscopy REMOVE TONSILS AND ADENOIDS Appendectomy RIGHT KNEE REPLACEMENT HIP REPLACEMENT, BILATERAL Arthroplasty Knee Total Replacement-MIS (Left) (11/21/2024) Medications Inpatient acetaminophen, 650 mg, Oral, QID acetaminophen, 650 mg, Oral, q4hr, PRN atorvastatin, 40 mg, Oral, HS (at bedtime) Benadryl, 25 mg, Oral, q4hr, PRN bisacodyl, 10 mg= 1 supp, Rectal, Daily, PRN Colace, 100 mg, Oral, BID Eliquis, 5 mg, Oral, BID famotidine, 20 mg, Oral, Daily, PRN labetalol, 5 mg= 1 mL, IV Push, q4hr, PRN magnesium hydroxide 8% oral suspension, 30 mL, Oral, Daily, PRN metoprolol succinate 100 mg oral tablet, extended release, 100 mg, Oral, Daily metoprolol tartrate, 5 mg= 5 mL, IV Push, q4hr, PRN MiraLax, 17 g= 1 EA, Oral, Daily Normal Saline Flush 0.9% injectable solution, 10 mL, IV Push, As Indicated, PRN oxyCODONE, 5 mg, Oral, q4hr, PRN oxyCODONE, 10 mg, Oral, q4hr, PRN pregabalin, 75 mg, Oral, q12hr, PRN verapamil 12 hour extended release, 180 mg, Oral, Daily Zofran, 4 mg= 2 mL, IV Push, q6hr, PRN Home acetaminophen, 1000 mg, Oral, q6hr, PRN atorvastatin 40 mg oral tablet, 40 mg= 1 tabs, Oral, Daily, HS, Still taking, not as prescribed: HS Eliquis 5 mg oral tablet, 5 mg= 1 tabs, Oral, BID famotidine 20 mg oral tablet, 20 mg= 1 tabs, Oral, Daily, PRN, PRN metoprolol succinate 100 mg oral tablet, extended release, 100 mg= 1 tabs, Oral, Daily, AM One A Day Women's Complete, 1 tabs, Oral, Daily, AM oxyCODONE 5 mg oral tablet, 5 mg, Oral, q6hr, PRN pregabalin 75 mg oral capsule, 75 mg, Oral, q12hr, PRN verapamil 180 mg/12 hours oral tablet, extended release, 180 mg= 1 tabs, (more content not included)...[facility]05-13-2025 NoteChief Complaint Left knee pain Reason for Consultation: Medical capacity management specialist Provider: Dr. Perez Date of Consult: 11/21/2024 Assessment/Plan Brief Hospital Course Summary: This is a 74 Years old Female with pertinent history of _GERD history of blood clots, recent A-fib diagnosis started on Eliquis this week, hypertension, PAD along with multiple medical problems brought in from Home with Left knee pain. Patient is admitted for left knee replacement,_. Assessment: GERD, dyslipidemia, constipation, overactive bladder Hypertension PAD Pain and surgical management per orthopedic/surgery Acute kidney insufficiency, on CKD 2, resolved, monitor History of blood clots, w/ recent diagnosis of atrial fibrillation (on Eliquis) A-fib with RVR (VR 127) on 11/25 Plan: Patient transferred to ICU for closer monitoring On Eliquis, with home med metoprolol succinate 100 mg ER once daily Verapamil 180 mg ER, once daily EKG (11/25): A-fib with RVR, VR 120 On maintenance NS 0.9% at 80 cc/h Encouraged p.o. fluid intake Ordered metoprolol tartrate 5 mg IV push q4h PRN for hr>110 with holding parameters for SBP<100 Consulted cardiology for further evaluation and management > Continue with patient home medications small frequent meals head of bed up no late-night eating avoid triggering foods > Continue with Eliquis twice daily, monitor hemoglobin > Continue with metoprolol succinate with verapamil ER daily; with labetalol as needed > Patient has a history of PAD monitor for circulation issues to the lower extremity surgical site. Currently with brisk cap refill Discussion: I discussed with the patient, family, patient's nurse, and care transition about the patient's plan of care. I reviewed other provider notes. Anticipated Discharge Location: To be discussed Patient follow-up with PCP, cardiology, orthopedics, vascular surgery upon discharge. Medical necessity for ongoing hospitalization: ongoing workup for active diagnosis Code Status: Full Resuscitation History of Present Illness Patient is seen postop left knee with past medical history of GERD history of blood clots, recent A-fib on Eliquis, hypertension, PAD with hospitalist consultation for medical management. Patient states to be tolerating p.o. intake, with pain well-controlled, on room air. Denies any chest pain or ti ghtness. New concern for A-fib with RVR (11/25), cardiology consulted, close monitoring in ICU. Objective General: Alert and oriented, well nourished, no acute distress. Eye: PERR, normal conjunctiva, no scleral icterus. HENT: Normocephalic, No active drainage noted to external ears, normal hearing, no active nasal drainage, no erythema or oral lesions noted. Neck: Supple, non-tender. Lungs: Clear to auscultation and percussion, non-labored respiration. Heart: S1, S2, Normal rate, irregularly, irregular rhythm, HR 110s Abdomen: Soft, non-tender, non-distended, normal bowel sounds. Musculoskeletal: Left knee postop wrap, cooling device in place brisk cap refill extremity warm Skin: Skin is warm, dry and pink, no rashes or lesions to exposed areas. Neurologic: Awake, alert, and oriented X3. Psychiatric: Cooperative, appropriate mood and affect. Vitals & Measurements T: 37.4 ?C (Oral) TMIN: 36.6 ?C (Oral) TMAX: 37.4 ?C (Oral) HR: 127 (Peripheral) RR: 18 BP: 164/70 SpO2: 98% Additional Vitals No qualifying data available. Problem List/Past Medical History Ongoing GERD (gastroesophageal reflux disease) History of blood clots Hypertension Knee pain, left Nocturia Osteoarthritis of knee PAD (peripheral artery disease) Urinary urgency Historical No qualifying data Degree of Malnutrition: No qualifying data available. Procedure/Surgical History LUMBAR RADIO FREQUENCY ABLATION Colonoscopy REMOVE TONSILS AND ADENOIDS Appendectomy RIGHT KNEE REPLACEMENT HIP REPLACEMENT, BILATERAL Arthroplasty Knee Total Replacement-MIS (Left) (11/21/2024) Medications Inpatient acetaminophen, 650 mg, Oral, QID acetaminophen, 650 mg, Oral, q4hr, PRN atorvastatin, 40 mg, Oral, HS (at bedtime) Benadryl, 25 mg, Oral, q4hr, PRN bisacodyl, 10 mg= 1 supp, Rectal, Daily, PRN Colace, 100 mg, Oral, BID Eliquis, 5 mg, Oral, BID famotidine, 20 mg, Oral, Daily, PRN labetalol, 5 mg= 1 mL, IV Push, q4hr, PRN magnesium hydroxide 8% oral suspension, 30 mL, Oral, Daily, PRN metoprolol succinate 100 mg oral tablet, extended release, 100 mg, Oral, Daily metoprolol tartrate, 5 mg= 5 mL, IV Push, q4hr, PRN MiraLax, 17 g= 1 EA, Oral, Daily Normal Saline Flush 0.9% injectable solution, 10 mL, IV Push, As Indicated, PRN oxyCODONE, 5 mg, Oral, q4hr, PRN oxyCODONE, 10 mg, Oral, q4hr, PRN pregabalin, 75 mg, Oral, q12hr, PRN Sodium Chloride 0.9% intravenous solution 1,000 mL, 1000 mL, IV verapamil 12 hour extended release, 180 mg, Oral, Daily Zofran, 4 mg= 2 mL, IV Push, q6hr, PRN Home acetaminophen, 1000 mg, O (more content not included)...[facility]05-12-2025 NoteChief Complaint Left knee pain Reason for Consultation: Medical capacity management specialist Provider: Dr. Perez Date of Consult: 11/21/2024 Assessment/Plan Brief Hospital Course Summary: This is a 74 Years old Female with pertinent history of _GERD history of blood clots, recent A-fib diagnosis started on Eliquis this week, hypertension, PAD along with multiple medical problems brought in from Home with Left knee pain. Patient is admitted for left knee replacement,_. Assessment: GERD, dyslipidemia, constipation, overactive bladder History of blood clots, w/ recent diagnosis of atrial fibrillation (on Eliquis) Hypertension PAD Pain and surgical management per orthopedic/surgery Acute kidney insufficiency, on CKD 2, resolved, monitor Plan: _> Continue with patient home medications small frequent meals head of bed up no late-night eating avoid triggering foods > Continue with Eliquis twice daily, monitor hemoglobin > Continue with metoprolol succinate with verapamil ER daily; with labetalol as needed > Patient has a history of PAD monitor for circulation issues to the lower extremity surgical site. Currently with brisk cap refill Discussion: I discussed with the patient, family, patient's nurse, and care transition about the patient's plan of care. I reviewed other provider notes. Anticipated Discharge Location: To be discussed Patient follow-up with PCP, cardiology, orthopedics, vascular surgery upon discharge. Medical necessity for ongoing hospitalization: ongoing workup for active diagnosis Code Status: Full Resuscitation History of Present Illness Patient is seen postop left knee with past medical history of GERD history of blood clots, recent A-fib on Eliquis this week, hypertension, PAD with hospitalist consultation for medical management. Patient states to be tolerating p.o. intake, with pain well-controlled, on room air. Denies any chestpain or tightness. Review of Systems All 14 point review of system discussed and pertinent listed on HPI. All other review of system arenegative. Objective General: Alert and oriented, well nourished, no acute distress. Eye: PERR, normal conjunctiva, no scleral icterus. HENT: Normocephalic, No active drainage noted to external ears, normal hearing, no active nasal drainage, no erythema or oral lesions noted. Neck: Supple, non-tender. Lungs: Clear to auscultation and percussion, non-labored respiration. Heart: S1, S2, Normal rate, irregularly, irregular rhythm. Abdomen: Soft, non-tender, non-distended, normal bowel sounds. Musculoskeletal: Left knee postop wrap, cooling device in place brisk cap refill extremity warm Skin: Skin is warm, dry and pink, no rashes or lesions to exposed areas. Neurologic: Awake, alert, and oriented X3. Psychiatric: Cooperative, appropriate mood and affect. Vitals & Measurements T: 36.5 ?C (Oral) TMIN: 36.5 ?C (Oral) TMAX: 36.8 ?C (Oral) HR: 96 (Peripheral) RR: 18 BP: 123/73 SpO2: 98% Additional Vitals No qualifying data available. Problem List/Past Medical History Ongoing GERD (gastroesophageal reflux disease) History of blood clots Hypertension Knee pain, left Nocturia Osteoarthritis of knee PAD (peripheral artery disease) Urinary urgency Historical No qualifying data Degree of Malnutrition: No qualifying data available. Procedure/Surgical History LUMBAR RADIO FREQUENCY ABLATION Colonoscopy REMOVE TONSILS AND ADENOIDS Appendectomy RIGHT KNEE REPLACEMENT HIP REPLACEMENT, BILATERAL Arthroplasty Knee Total Replacement-MIS (Left) (11/21/2024) Medications Inpatient acetaminophen, 650 mg, Oral, QID acetaminophen, 650 mg, Oral, q4hr, PRN atorvastatin, 40 mg, Oral, HS (at bedtime) Benadryl, 25 mg, Oral, q4hr, PRN bisacodyl, 10 mg= 1 supp, Rectal, Daily, PRN Colace, 100 mg, Oral, BID Eliquis, 5 mg, Oral, BID famotidine, 20 mg, Oral, Daily, PRN labetalol, 5 mg= 1 mL, IV Push, q4hr, PRN magnesium hydroxide 8% oral suspension, 30 mL, Oral, Daily, PRN metoprolol succinate 100 mg oral tablet, extended release, 100 mg, Oral, Daily MiraLax, 17 g= 1 EA, Oral, Daily Normal Saline Flush 0.9% injectable solution, 10 mL, IV Push, As Indicated, PRN oxyCODONE, 5 mg, Oral, q4hr, PRN oxyCODONE, 10 mg, Oral, q4hr, PRN pregabalin, 75 mg, Oral, q12hr, PRN Sodium Chloride 0.9% intravenous solution 1,000 mL, 1000 mL, IV verapamil 12 hour extended release, 180 mg, Oral, Daily Zofran, 4 mg= 2 mL, IV Push, q6hr, PRN Home acetaminophen, 1000 mg, Oral, q6hr, PRN atorvastatin 40 mg oral tablet, 40 mg= 1 tabs, Oral, Daily, HS, Still taking, not as prescribed: HS Eliquis 5 mg oral tablet, 5 mg= 1 tabs, Oral, BID famotidine 20 mg oral tablet, 20 mg= 1 tabs, Oral, Daily, PRN, PRN metoprolol succinate 100 mg oral tablet, extended release, 100 mg= 1 tabs, Oral, Daily, AM One A Day Women's Complete, 1 tabs, Oral, Daily, AM oxyCODONE 5 mg oral tablet, 5 mg, Oral, q6hr, PRN pregabalin 75 mg oral c (more content not included)...[facility]05-11-2025 NoteChief Complaint Left knee pain Reason for Consultation: Medical capacity management specialist Provider: Dr. Perez Date of Consult: 11/21/2024 Assessment/Plan Brief Hospital Course Summary: This is a 74 Years old Female with pertinent history of _GERD history of blood clots, recent A-fib diagnosis started on Eliquis this week, hypertension, PAD along with multiple medical problems brought in from Home with Left knee pain. Patient is admitted for left knee replacement,_. Assessment: GERD, dyslipidemia, constipation, overactive bladder History of blood clots, recent diagnosis of atrial fibrillation (on Eliquis) Hypertension PAD Pain and surgical management per orthopedic/surgery Acute kidney insufficiency, on CKD 2, resolved, monitor Plan: _> Continue with patient home medications small frequent meals head of bed up no late-night eating avoid triggering foods > Continue with Eliquis twice daily, monitor hemoglobin > Continue with metoprolol succinate with verapamil ER daily; with labetalol as needed > Patient has a history of PAD monitor for circulation issues to the lower extremity surgical site. Currently with brisk cap refill Discussion: I discussed with the patient, family, patient's nurse, and care transition about the patient's plan of care. I reviewed other provider notes. Anticipated Discharge Location: To be discussed Patient follow-up with PCP, cardiology, orthopedics, vascular surgery upon discharge. Medical necessity for ongoing hospitalization: ongoing workup for active diagnosis Code Status: Full Resuscitation History of Present Illness Patient is seen postop left knee with past medical history of GERD history of blood clots, recent A-fib on Eliquis this week, hypertension, PAD with hospitalist consultation for medical management. Patient states to be tolerating p.o. intake, with pain well-controlled, on room air. Denies any chestpain or tightness. Review of Systems All 14 point review of system discussed and pertinent listed on HPI. All other review of system arenegative. Objective General: Alert and oriented, well nourished, no acute distress. Eye: PERR, normal conjunctiva, no scleral icterus. HENT: Normocephalic, No active drainage noted to external ears, normal hearing, no active nasal drainage, no erythema or oral lesions noted. Neck: Supple, non-tender. Lungs: Clear to auscultation and percussion, non-labored respiration. Heart: Normal rate, regular rhythm. Abdomen: Soft, non-tender, non-distended, normal bowel sounds. Musculoskeletal: Left knee postop wrap, cooling device in place brisk cap refill extremity warm Skin: Skin is warm, dry and pink, no rashes or lesions to exposed areas. Neurologic: Awake, alert, and oriented X3. Psychiatric: Cooperative, appropriate mood and affect. Vitals & Measurements T: 37.1 ?C (Oral) TMIN: 36.5 ?C (Oral) TMAX: 37.1 ?C (Oral) HR: 88 (Peripheral) RR: 14 BP: 162/85 SpO2: 99% WT: 96.8 kg Additional Vitals No qualifying data available. Problem List/Past Medical History Ongoing GERD (gastroesophageal reflux disease) History of blood clots Hypertension Knee pain, left Nocturia Osteoarthritis of knee PAD (peripheral artery disease) Urinary urgency Historical No qualifying data Degree of Malnutrition: No qualifying data available. Procedure/Surgical History LUMBAR RADIO FREQUENCY ABLATION Colonoscopy REMOVE TONSILS AND ADENOIDS Appendectomy RIGHT KNEE REPLACEMENT HIP REPLACEMENT, BILATERAL Arthroplasty Knee Total Replacement-MIS (Left) (11/21/2024) Medications Inpatient acetaminophen, 650 mg, Oral, QID acetaminophen, 650 mg, Oral, q4hr, PRN atorvastatin, 40 mg, Oral, HS (at bedtime) Benadryl, 25 mg, Oral, q4hr, PRN bisacodyl, 10 mg= 1 supp, Rectal, Daily, PRN Colace, 100 mg, Oral, BID Eliquis, 5 mg, Oral, BID famotidine, 20 mg, Oral, Daily, PRN labetalol, 5 mg= 1 mL, IV Push, q4hr, PRN magnesium hydroxide 8% oral suspension, 30 mL, Oral, Daily, PRN metoprolol succinate 100 mg oral tablet, extended release, 100 mg, Oral, Daily MiraLax, 17 g= 1 EA, Oral, Daily Normal Saline Flush 0.9% injectable solution, 10 mL, IV Push, As Indicated, PRN oxyCODONE, 5 mg, Oral, q4hr, PRN oxyCODONE, 10 mg, Oral, q4hr, PRN pregabalin, 75 mg, Oral, q12hr, PRN Sodium Chloride 0.9% intravenous solution 1,000 mL, 1000 mL, IV verapamil 12 hour extended release, 180 mg, Oral, Daily Zofran, 4 mg= 2 mL, IV Push, q6hr, PRN Home acetaminophen, 1000 mg, Oral, q6hr, PRN atorvastatin 40 mg oral tablet, 40 mg= 1 tabs, Oral, Daily, HS, Still taking, not as prescribed: HS Eliquis 5 mg oral tablet, 5 mg= 1 tabs, Oral, BID famotidine 20 mg oral tablet, 20 mg= 1 tabs, Oral, Daily, PRN, PRN metoprolol succinate 100 mg oral tablet, extended release, 100 mg= 1 tabs, Oral, Daily, AM One A Day Women's Complete, 1 tabs, Oral, Daily, AM verapamil 180 mg/12 hours oral tablet, extended release, 180 mg= 1 tabs, Oral, Daily, AM (more content not included)...[facility]05-10-2025 NoteChief Complaint Left knee pain Reason for Consultation: Medical capacity management specialist Provider: Dr. Perez Date of Consult: 11/21/2024 Assessment/Plan Brief Hospital Course Summary: This is a 74 Years old Female with pertinent history of _GERD history of blood clots, recent A-fib diagnosis started on Eliquis this week, hypertension, PAD along with multiple medical problems brought in from Home with Left knee pain. Patient is admitted for left knee replacement,_. Assessment: GERD, dyslipidemia, constipation, overactive bladder History of blood clots, recent diagnosis of atrial fibrillation (on Eliquis) Hypertension PAD Pain and surgical management per orthopedic/surgery CKD 3A, monitor Plan: _> Continue with patient home medications small frequent meals head of bed up no late-night eating avoid triggering foods > Continue with Eliquis twice daily, monitor hemoglobin > Continue with metoprolol succinate with verapamil ER daily; with labetalol as needed > Patient has a history of PAD monitor for circulation issues to the lower extremity surgical site. Currently with brisk cap refill Discussion: I discussed with the patient, family, patient's nurse, and care transition about the patient's plan of care. I reviewed other provider notes. Anticipated Discharge Location: To be discussed Patient follow-up with PCP, cardiology, orthopedics, vascular surgery upon discharge. Medical necessity for ongoing hospitalization: ongoing workup for active diagnosis Code Status: Full Resuscitation History of Present Illness Patient is seen postop left knee with past medical history of GERD history of blood clots, recent A-fib on Eliquis this week, hypertension, PAD with hospitalist consultation for medical management. Patient states to be tolerating p.o. intake, with pain well-controlled, on room air. Denies any chestpain or tightness. Review of Systems All 14 point review of system discussed and pertinent listed on HPI. All other review of system arenegative. Objective General: Alert and oriented, well nourished, no acute distress. Eye: PERR, normal conjunctiva, no scleral icterus. HENT: Normocephalic, No active drainage noted to external ears, normal hearing, no active nasal drainage, no erythema or oral lesions noted. Neck: Supple, non-tender. Lungs: Clear to auscultation and percussion, non-labored respiration. Heart: Normal rate, regular rhythm. Abdomen: Soft, non-tender, non-distended, normal bowel sounds. Musculoskeletal: Left knee postop wrap, cooling device in place brisk cap refill extremity warm Skin: Skin is warm, dry and pink, no rashes or lesions to exposed areas. Neurologic: Awake, alert, and oriented X3. Psychiatric: Cooperative, appropriate mood and affect. Vitals & Measurements T: 36.5 ?C (Oral) TMIN: 36.3 ?C (Oral) TMAX: 36.7 ?C (Oral) HR: 82 (Peripheral) RR: 16 BP: 148/76 SpO2: 100% HT: 163 cm HT: 163 cm WT: 97.7 kg WT: 97.7 kg BMI: 35 BMI: 35 Additional Vitals No qualifying data available. Problem List/Past Medical History Ongoing GERD (gastroesophageal reflux disease) History of blood clots Hypertension Knee pain, left Nocturia Osteoarthritis of knee PAD (peripheral artery disease) Urinary urgency Historical No qualifying data Degree of Malnutrition: No qualifying data available. Procedure/Surgical History LUMBAR RADIO FREQUENCY ABLATION Colonoscopy REMOVE TONSILS AND ADENOIDS Appendectomy RIGHT KNEE REPLACEMENT HIP REPLACEMENT, BILATERAL Arthroplasty Knee Total Replacement-MIS (Left) (11/21/2024) Medications Inpatient acetaminophen, 650 mg, Oral, QID acetaminophen, 650 mg, Oral, q4hr, PRN atorvastatin, 40 mg, Oral, HS (at bedtime) Benadryl, 25 mg, Oral, q4hr, PRN bisacodyl, 10 mg= 1 supp, Rectal, Daily, PRN ceFAZolin, 2 g= 50 mL, IV Piggyback, q8hr Colace, 100 mg, Oral, BID Eliquis, 5 mg, Oral, BID famotidine, 20 mg, Oral, Daily, PRN labetalol, 5 mg= 1 mL, IV Push, q4hr, PRN magnesium hydroxide 8% oral suspension, 30 mL, Oral, Daily, PRN metoprolol succinate 100 mg oral tablet, extended release, 100 mg, Oral, Daily MiraLax, 17 g= 1 EA, Oral, Daily Normal Saline Flush 0.9% injectable solution, 10 mL, IV Push, As Indicated, PRN oxyCODONE, 5 mg, Oral, q4hr, PRN oxyCODONE, 10 mg, Oral, q4hr, PRN pregabalin, 75 mg, Oral, q12hr, PRN Sodium Chloride 0.9% intravenous solution 1,000 mL, 1000 mL, IV verapamil 12 hour extended release, 180 mg, Oral, Daily Zofran, 4 mg= 2 mL, IV Push, q6hr, PRN Home acetaminophen, 1000 mg, Oral, q6hr, PRN atorvastatin 40 mg oral tablet, 40 mg= 1 tabs, Oral, Daily, HS, Still taking, not as prescribed: HS Eliquis 5 mg oral tablet, 5 mg= 1 tabs, Oral, BID famotidine 20 mg oral tablet, 20 mg= 1 tabs, Oral, Daily, PRN, PRN metoprolol succinate 100 mg oral tablet, extended release, 100 mg= 1 tabs, Oral, Daily, AM One A Day Women's Complete, 1 tabs, Oral, Daily, AM verapamil 180 mg/12 hours oral tab (more content not included)...[facility]05-09-2025 NoteIndication for Surgery Patient is a 74-year-old female who presented for evaluation of low pain. Patient sustained a fall last summer injuring her left knee. She had a displaced proximal tibia fracture which was treated nonsurgically. She went on to have a complex deformity and severe arthritis of the left knee. She had persistent pain despite nonsurgical management. Discussion was had with patient regarding left totalknee arthroplasty to assist with pain relief and allow for ambulation. Discussed procedure, risks, benefits, and alternatives including but not limited to bleeding, infection, neurovascular injury, hardware failure, fracture, stiffness, VTE, continued pain, need for additional surgery, and risks of anesthesia. Patient understood the risks and elected to proceed with surgery. Preoperative Diagnosis 1. Left knee pain 2. Left knee posttraumatic arthritis Postoperative Diagnosis 1. Left knee pain 2. Left knee posttraumatic arthritis Operation 1. Left total knee arthroplasty 2. Modifier 22 for 50% increased work due to additional time spent with utilization of revision implants and additional time spent with soft tissue releases due to complex deformity secondary to prior fracture. Surgeon(s) Chris MUJICA, Luis Alberto Vegas (Surgeon - Primary) Barker Peeler Bella Yarbrough PA-C (Protein Specialist) Anesthesia General Chance MUJICA, Salas De Jesus (Provider) Tressa GOLD-TARGETEER, Moises Herrmann (Provider) Moy GOLD-TARGETEER, Mayi Ferguson (Provider) Estimated Blood Loss 500.0 mL Urine Output 150.0 mL Findings Severe lateral tibial plateau deformity secondary to prior tibial plateau fracture. Specimen(s) Bony cuts disposed of Complications None Technique Implants: Kumar [employer] Persona revision Size 9 revision femur 14 x 75 mm cemented stem on femur Size F revision tibia 14 x 75 mm cemented stem on tibia 32 mm patella Fix central cone 1 tibia Two 4.0 mm cancellous screws CPS 18 mm tibial polyethylene Procedure: Patient was identified and greeted in the preoperative holding area. The correct surgical site was identified and marked. Surgical consent was obtained and placed in the chart. Patient was taken to the operative suite and transported to the operative table. Patient received general anesthetic per anesthesia. Patient received preoperative IV Ancef and IV tranexamic acid. A Boogie catheter was placed. A tourniquet was placed on the left lower extremity. Left lower extremity was sterilely prepped and draped. Surgical timeout was performed confirming correct surgical site, patient, and procedure. Sigurd exsanguination was used and tourniquet was inflated to 250 mmHg. The knee was flexed up and a midline incision was made over the anterior knee. Incision was carried down through skin and subcutaneous tissue. Full-thickness medial and lateral flaps were elevated. Medial parapatellar arthrotomy was performed. The knee was taken into extension and medial approach was performed to the proximaltibia. Infrapatellar fat pad was sharply released off the anterior tibia. The patella was everted and the lateral half of the infrapatellar fat pad was sharply excised. Synovial bands were released from the lateral gutter. Towel clips were placed on the quadriceps and patellar tendon. The articularsurface of the patella was cut parallel to the anterior surface of the patella. The patella was sized to a 32 mm button. The lug holes were drilled and the trial button placed. Overhanging lateral facet was debrided with a rongeur. Topicals were placed on the joint capsule. Synovectomy was performed of the suprapatellar pouch. The knee was flexed up and retractors were placed around the medial lat eral aspect of the knee. The remainder of the lateral meniscus was sharply excised. The ACL was chronically deficient. Osteophytes were removed from the intercondylar notch. The femoral canal was opened approximately 1 cm anterior to the PCL origin. The intramedullary guide was placed and pinned for a 6 degree valgus cut. The intramedullary guide was removed. The distal femur articular surface was cut and removed. There was noted to be significant lateral femoral condyle bone loss and minimal cut was taken from the lateral condyle. The proximal tibia was circumferentially exposed and the kneewas taken into deep flexion. There was a large bony defect of the posterior lateral tibial plateau. The tibial cutting guide was pinned for a 5 mm cut off the intact medial side. The guide was aligned to the mechanical axis. The femoral articular surface was cut and removed. There was still noted to be fairly significant posterior lateral bone loss present. The pins were removed. The knee was taken into deep flexion. Retractors were placed around the medial lateral aspect of the knee. The transepicondylar axis and Whitesides lines were marked. The femoral sizer was placed on the distal femur and externally rotated to match the transepicondylar axis. The femur was sized to a size 9. The fem (more content not included)...[facility]05-06-2025 History of Present illness Narrative* Korina Ham - 11/18/2024 10:30 AM EDT Explained policies and procedure of an echocardiogram/Doppler study. documented in this encounterBon [facility] Reason for cardiology consult: Preop clearance for left knee replacement Chief Complaint: Complaint HPI: Kami Fink is a 74 y.o. female with history of hypertension, hyperlipidemia, DVT on Eliquis, peripheral arterial disease, and left lower extremity venous ulcer which have healed. No prior history of coronary artery disease.. She reports that over the last 12 months she has been using a walker due to her left knee however prior to that she used to walk and swim and she denies any chest pain or shortness of breath with walking. She denies orthopnea or paroxysmal nocturnal dyspnea. She denies any palpitations. She reports occasional lightheadedness when she stands up. She denies syncope or near syncope. She reports legs edema and prior venous ulcer which has healed. She denies snoring or being sleepy or tired during the daytime She never been a smoker. She drinks alcohol occasionally. She denies any illicit drugs Family history her mother due to [place] at age 69. Her father had congestive heart failure and pacemaker. Cardiology ROS: GENERAL: Denies fever, chills, night sweats, weight loss. HEENT: Denies changes in vision, photophobia, changes in hearing, epistaxis, oral bleeding. CARDIOVASCULAR: Denies chest pain, exertional dyspnea, orthopnea/PND, lower extremity edema, palpitations, she reports occasional lightheadedness/dizziness with standing. RESPIRATORY: Denies SOB, coughing, wheezing GI: Denies abdominal pain, nausea/vomiting, heartburn, melena/hematochezia. RENAL: Denies dysuria, hematuria, flank pain. MSK: Denies muscle weakness/pain, arthralgias/joint pain. NEUROLOGIC: Denies LOC, weakness, numbness, headaches. SKIN: Denies abnormal rashes or bleeding. PSYCH: Denies significant anxiety, depression, sleep disturbances. Past Medical History She has a past medical history of Abnormal ECG, Atrial fibrillation (CMS/HCC), Deep vein thrombosis (CMS/HCC), and Hypertension. Surgical History She has a past surgical history that includes Total hip arthroplasty (Bilateral) and Removal prosthesis total knee w/ or w/o insertion spacer (Right). Social History She reports that she has never smoked. She has never used smokeless tobacco. She reports that she does not use drugs. No history on file for alcohol use. Family History Family History Problem Relation Name Age of Onset Heart attack Mother Heart failure Father Coronary artery disease Sister Allergies Patient has no known allergies. Medications Current Outpatient Medications: acetaminophen 500 mg capsule, Take 500 mg by mouth every 6 (six) hours if needed., Disp: , Rfl: atorvastatin (Lipitor) 40 mg tablet, Take 40 mg by mouth in the morning., Disp: , Rfl: Eliquis 5 mg tablet, Take 5 mg by mouth in the morning and at bedtime., Disp: , Rfl: famotidine (Pepcid) 20 mg tablet, Take by mouth in the morning., Disp: , Rfl: metoprolol tartrate (Lopressor) 100 mg tablet, Take 100 mg by mouth twice a day., Disp: , Rfl: verapamil SR (Calan-SR) 180 mg ER tablet, Take 180 mg by mouth at bedtime., Disp: , Rfl: Last Recorded Vitals Visit Vitals BP 150/75 (BP Location: Right arm, Patient Position: Sitting) Pulse 70 Ht 1.626 m (5' 4 ) Wt 90.3 kg (199 lb) SpO2 96% BMI 34.16 kg/m??? Smoking Status Never BSA 2.02 m??? Physical Examination: GENERAL: alert and oriented x3, well developed, in no acute distress. HEAD: atraumatic, normocephalic. EYES: BARBI, EOMI. NECK: trachea midline, no JVD present, no carotid bruits present. CARDIAC: S1, S2 present. RRR. No murmur, rubs, or gallops. RESPIRATORY: CTAB, no increased effort of breathing, no rales, rhonchi, or wheezing. ABDOMEN: soft, nontender, nondistended. EXTREMITIES: Edema with significant skin discoloration consistent with venous stasis bilaterally NEURO: strength/sensation equal and symmetric in bilateral upper and lower extremities. PSYCH: appropriate mood, affect, and judgement. Labs: 11/05/2024 White blood count 7.1, hemoglobin 13.6, hematocrit 40.2, platelets 188 INR 1.06 Sodium 141, potassium 4.1, BUN 34, creatinine 1.4, GFR 37, glucose 106, calcium 9.7 Total bilirubin 0.6, AST 22, ALT 33, alk phos 85, total protein 6.4, albumin 3.5 06/13/2023 HbA1c 5.2% next Triglyceride 115, cholesterol 200, LDL 109, HDL 68 TSH 3.4 Last Images: EKG 11/05/2024 showed atrial fibrillation, ventricular rate 59 bpm, poor R progression in V1-V3 consider old septal infarct. Lower extremities Doppler study 01/10/2024 PVR waveforms: Right leg: Thigh: Moderate to severe peripheral arterial disease Above knee: Mild to moderate peripheral arterial disease Below knee: Mild to moderate peripheral arterial disease Right ankle: Moderate to severe peripheral arterial disease Left leg: Thigh: Moderate to severe peripheral arterial disease Above knee: Mild to moderate peripheral arterial disease Be (more content not included)...[facility]04-21-2025 Evaluation note* Diagnosis Onset Date Resolution Status Admit Date Essential (primary) hypertension acu te November 03, 2024 1:01pm Primary osteoarthritis of le ft knee acute November 03, 2024 1:01pm Right femoral vein DVT acute Ap 2024 1:01pm [facility] Work Phone: [phone] Evaluation + Plan note* Assessment & Plan Note - Greer Su MD - 02/28/2024 9:01 AM EDTAssociated Problem(s): Venous ulcer of left leg (CMS-HCC) Wound pretty much healed. Discussed with her risk factors modification and follow-up as needed. [facility]08-15-2024 Evaluation + Plan note* Assessment & Plan Note - Greer Su MD - 02/28/2024 9:01 AM EDTAssociated Problem(s): Critical limb ischemia of left lower extremity with gangrene (CMS-HCC) Wound pretty much healed. Discussed with her risk factors modification and follow-up as needed. [facility]08-15-2024 Miscellaneous Notes* Assessment & Plan Note - Greer Su MD - 02/28/2024 9:01 AM EDTAssociated Problem(s): Venous ulcer of left leg (CMS-HCC) Wound pretty much healed. Discussed with her risk factors modification and follow-up as needed. * Assessment & Plan Note - Greer Su MD - 02/28/2024 9:01 AM EDT Associated Problem(s): Critical limb ischemia of left lower extremity with gangrene ([facility]-HCC) Wound pretty much healed. Discussed with her risk factors modification and follow-up as needed. documented in this encounterGeorgetown [facility] History of Present illness Narrative* Greer Su MD - 02/28/2024 8:30 AM EDT Images from the original note were not included. To: KATELYNN CLARK MD HPI: Kami Fink is a 73 y.o. female with Left lower extremity nonhealing venous ulcer. She has knownhistory of peripheral arterial disease and occlusive disease. No recent testing. She had a recent fracture of her left knee. She is immobilized there. She is on anticoagulation for DVT as well. She is on Eliquis.. . Ultrasound shows she has normal ELVIN bilaterally and she has GSV reflux that is relatively mild with a ladle repairer in the left lower extremity near her ulcer. We discussed interventions. In the last visit she Stated that the ulcer had been healing well. So we discussed that we Would hold off on any intervention at At that time. WeWould reevaluate in a month. She came today for reevaluation. The wound almost healed completely. There is a small little 1 mm area left. Review of Systems: Review of Systems Constitutional: Negative. HENT: Negative. Respiratory: Negative. Cardiovascular: Negative. Gastrointestinal: Negative. Endocrine: Negative. Genitourinary: Negative. Musculoskeletal: Negative. Skin: Negative. Neurological: Negative. Hematological: Negative. Medications: Current Outpatient Medications on File Prior to Visit Medication Sig Dispense Refill acetaminophen 500 mg capsule Take 1 capsule (500 mg total) by mouth every 6 (six) hours as needed. apixaban (ELIQUIS) 5 mg tablet Take 1 tablet (5 mg total) by mouth in the morning and 1 tablet (5 mg total) before bedtime. atorvastatin (LIPITOR) 40 mg tablet Take 1 tablet (40 mg total) by mouth in the morning. diclofenac (VOLTAREN) 75 mg EC tablet Take 1 tablet (75 mg total) by mouth daily as needed. famotidine (PEPCID) 20 mg tablet Take 1 tablet (20 mg total) by mouth in the morning and 1 tablet (20 mg total) before bedtime. furosemide (LASIX) 40 mg tablet Take 1 tablet (40 mg total) by mouth 2 (two) times a day. loperamide (IMODIUM A-D) 2 mg tablet Take 1 tablet (2 mg total) by mouth 4 (four) times a day as needed for diarrhea. metoprolol succinate XL (TOPROL XL) 100 mg 24 hr tablet Take 1 tablet (100 mg total) by mouth in the morning. potassium chloride (K-TAB,KLOR-CON) 10 MEQ CR tablet Take 1 tablet (10 mEq total) by mouth in the morning. traMADoL (ULTRAM) 50 mg tablet Take 1 tablet (50 mg total) by mouth every 6 (six) hours as needed. verapamil SR (CALAN-SR) 180 mg CR tablet Take 1 tablet (180 mg total) by mouth in the morning. No current facility-administered medications on file prior to visit. Past Medical History: Past Medical History: Diagnosis Date Clotting disorder ([facility]) Deep vein thrombosis ([facility]) History of arterial disease of lower extremity History of transfusion Hypertension Past Surgical History: No past surgical history on file. Social and Family History: Social History Socioeconomic History Marital status: Spouse name: Not on file Number of children: Not on file Years of education: Not on file Highest education level: Not on file Occupational History Not on file Tobacco Use Smoking status: Never Smokeless tobacco: Never Substance and Sexual Activity Alcohol use: Yes Alcohol/week: 2.0 standard drinks of alcohol Types: 2 Glasses of wine per week Drug use: Not on file Sexual activity: Not on file Other Topics Concern Not on file Social History Narrative Not on file Social Determinants of Health Financial Resource Strain: Not on file Food Insecurity: No Food Insecurity (02/28/2024) Hunger Screening Food Insecurity - Worry: Never True Food Insecurity - Inability: Never True Transportation Needs: Not on file Physical Activity: Not on file Stress: Not on file Social Connections: Not on file Interpersonal Safety: Not on file Housing Instability: Not on file History reviewed. No pertinent family history. Recent Labs: Recent and relative labs were reviewed and interpreted and contributed to the assessment and plan below. Vitals: BP 118/82 (BP Site: Left Arm, BP Postition: Sitting, BP CUFF SIZE: M (9-13 inches)) Pulse 94 Ht162.6 cm (5' 4 ) Wt 93 kg (205 lb) SpO2 100% BMI 35.19 kg/m Body mass index is 35.19 kg/m . Physical Exam: Physical Exam Constitutional: Appearance: Normal appearance. HENT: Head: Normocephalic and atraumatic. Mouth/Throat: Mouth: Mucous membranes are moist. Eyes: Extraocular Movements: Extraocular movements intact. Pupils: Pupils are equal, round, and reactive to light. Cardiovascular: Rate and Rhythm: Normal rate and regular rhythm. Pulmonary: Effort: Pulmonary effort is normal. Breath sounds: Normal breath sounds. Abdominal: General: Abdomen is flat. Bowel sounds are normal. Palpations: Abdomen is soft. Musculoskeletal: General: Normal range of motion. Cervical back: Normal range of motion. Skin: General: Skin is warm and dry. Neurological: General: No focal deficit present. Mental Status: She is alert and oriented to person, place, and time. Mental status is at baseline. Psychiatric: Mood and Affect: Mood normal. Behavior: Behavior normal. Thought Content: Thought content normal. Judgment: Judgment normal. Recent testing: ELVIN PVR and venous reflux ultrasound Assessment and Plan: Problem List Venous ulcer of left leg (CMS-HCC) - Primary Current Assessment & Plan Wound pretty much healed. Discussed with her risk factors modification and follow-up as needed. Critical limb ischemia of left lower extremity with gangrene (CMS-HCC) Current Assessment & Plan Wound pretty much healed. Discussed with her risk factors modification and follow-up as needed. Kami was seen today for 1 month follow up with no testing prior venous ulcer of lef. Diagnoses and all orders for this visit: Venous ulcer of left leg (CMS-HCC) Critical limb ischemia of left lower extremity with gangrene (CMS-HCC) Greer Su MD, DEMI, RPVI, FSVS, FACS [facility] This note was created with the assistance of a speech recognition program. While intending to generate a timely document that accurately reflects the content of the visit, no guarantee can be provided that every grammatical or spelling mistake has been or will be identified or corrected. Thank you for your understanding. [facility]Ge[facility] Evaluation + Plan note* Assessment & Plan Note - Greer Su MD - 01/24/2024 9:20 AM EDT Associated Problem(s): Venous ulcer of left leg (CMS-HCC) We will reevaluate in a month. If the ulcer healed or healing well we will hold off on any intervention otherwise we will do ultrasound-guided injection sclerotherapy and ablation of the GSV. [facility]07-11-2024 History of Present illness Narrative* Greer Su MD - 01/24/2024 9:20 AM EDT Images from the original note were not included. To: KATELYNN CLARK MD HPI: Kami Fink is a 73 y.o. female with with Left lower extremity nonhealing venous ulcer. She has known history of peripheral arterial disease and occlusive disease. No recent testing. She had a recent fracture of her left knee. She is immobilized there. She is on anticoagulation for DVT as well. She is on Eliquis.. . Ultrasound shows she has normal ELVIN bilaterally and she has GSV reflux that isrelatively mild with a ladle repairer in the left lower extremity near her ulcer. We discussed interventions. She is stating that the ulcer has been healing well recently and. So we discussed that we will hold off on any intervention at this time. We will reevaluate in a month. If the ulcer healed or healing well we will hold off on any intervention otherwise we will do ultrasound-guided injection sclerotherapy and ablation of the GSV. Review of Systems: Review of Systems Constitutional: Negative. HENT: Negative. Respiratory: Negative. Cardiovascular: Negative. Gastrointestinal: Negative. Endocrine: Negative. Genitourinary: Negative. Musculoskeletal: Negative. Skin: Negative. Neurological: Negative. Hematological: Negative. Medications: Current Outpatient Medications on File Prior to Visit Medication Sig Dispense Refill acetaminophen 500 mg capsule Take 1 capsule (500 mg total) by mouth every 6 (six) hours as needed. apixaban (ELIQUIS) 5 mg tablet Take 1 tablet (5 mg total) by mouth in the morning and 1 tablet (5 mg total) before bedtime. atorvastatin (LIPITOR) 40 mg tablet Take 1 tablet (40 mg total) by mouth in the morning. diclofenac (VOLTAREN) 75 mg EC tablet Take 1 tablet (75 mg total) by mouth daily as needed. famotidine (PEPCID) 20 mg tablet Take 1 tablet (20 mg total) by mouth in the morning and 1 tablet (20 mg total) before bedtime. furosemide (LASIX) 40 mg tablet Take 1 tablet (40 mg total) by mouth 2 (two) times a day. loperamide (IMODIUM A-D) 2 mg tablet Take 1 tablet (2 mg total) by mouth 4 (four) times a day as needed for diarrhea. metoprolol succinate XL (TOPROL XL) 100 mg 24 hr tablet Take 1 tablet (100 mg total) by mouth in the morning. potassium chloride (K-TAB,KLOR-CON) 10 MEQ CR tablet Take 1 tablet (10 mEq total) by mouth in the morning. traMADoL (ULTRAM) 50 mg tablet Take 1 tablet (50 mg total) by mouth every 6 (six) hours as needed. verapamil SR (CALAN-SR) 180 mg CR tablet Take 1 tablet (180 mg total) by mouth in the morning. No current facility-administered medications on file prior to visit. Past Medical History: Past Medical History: Diagnosis Date Clotting disorder ([facility]-HCC) Deep vein thrombosis ([facility]-HCC) History of arterial disease of lower extremity History of transfusion Hypertension Past Surgical History: No past surgical history on file. Social and Family History: Social History Socioeconomic History Marital status: Spouse name: Not on file Number of children: Not on file Years of education: Not on file Highest education level: Not on file Occupational History Not on file Tobacco Use Smoking status: Never Smokeless tobacco: Never Substance and Sexual Activity Alcohol use: Yes Alcohol/week: 2.0 standard drinks of alcohol Types: 2 Glasses of wine per week Drug use: Not on file Sexual activity: Not on file Other Topics Concern Not on file Social History Narrative Not on file Social Determinants of Health Financial Resource Strain: Not on file Food Insecurity: No Food Insecurity (01/03/2024) Hunger Screening Food Insecurity - Worry: Never True Food Insecurity - Inability: Never True Transportation Needs: Not on file Physical Activity: Not on file Stress: Not on file Social Connections: Not on file Interpersonal Safety: Not on file Housing Instability: Not on file History reviewed. No pertinent family history. Recent Labs: Recent and relative labs were reviewed and interpreted and contributed to the assessment and plan below. Vitals: BP (!) 157/91 (BP Site: Right Arm, BP Postition: Sitting) Pulse 116 Ht 162.6 cm (5' 4 ) Wt 92.1 kg (203 lb) SpO2 99% BMI 34.84 kg/m Body mass index is 34.84 kg/m . Physical Exam: Physical Exam Constitutional: Appearance: Normal appearance. HENT: Head: Normocephalic and atraumatic. Mouth/Throat: Mouth: Mucous membranes are moist. Eyes: Extraocular Movements: Extraocular movements intact. Pupils: Pupils are equal, round, and reactive to light. Cardiovascular: Rate and Rhythm: Normal rate and regular rhythm. Pulmonary: Effort: Pulmonary effort is normal. Breath sounds: Normal breath sounds. Abdominal: General: Abdomen is flat. Bowel sounds are normal. Palpations: Abdomen is soft. Musculoskeletal: General: Normal range of motion. Cervical back: Normal range of motion. Skin: General: Skin is warm and dry. Neurological: General: No focal deficit present. Mental Status: She is alert and oriented to person, place, and time. Mental status is at baseline. Psychiatric: Mood and Affect: Mood normal. Behavior: Behavior normal. Thought Content: Thought content normal. Judgment: Judgment normal. Recent testing: PVRAnd venous reflux Assessment and Plan: Problem List Venous ulcer of left leg (CMS-HCC) - Primary [facility] was seen today for critical limb ischemia. Diagnoses and all orders for this visit: Venous ulcer of left leg (CMS-HCC) Greer Su MD, DEMI, RPVI, FSVS, FACS [facility] This note was created with the assistance of a speech recognition program. While intending to generate a timely document that accurately reflects the content of the visit, no guarantee can be provided that every grammatical or spelling mistake has been or will be identified or corrected. Thank you for your understanding. [facility] Miscellaneous Notes* Assessment & Plan Note - Greer Su MD - 01/24/2024 9:20 AM EDT Associated Problem(s): Venous ulcer of left leg (CMS-HCC) We will reevaluate in a month. If the ulcer healed or healing well we will hold off on any intervention otherwise we will do ultrasound-guided injection sclerotherapy and ablation of the GSV. [facility] Evaluation + Plan note* Assessment & Plan Note - Greer Su MD - 01/03/2024 10:48 AM EDT Associated Problem(s): Critical limb ischemia of left lower extremity with gangrene (CMS-HCC) PVR with toe pressure [facility] Miscellaneous Notes* Assessment & Plan Note - Greer Su MD - 01/03/2024 10:48 AM EDTAssociated Problem(s): Critical limb ischemia of left lower extremity with gangrene (CMS-HCC) PVR with toe pressure * Assessment & Plan Note - Greer Su MD - 01/03/2024 10:47 AM EDT Associated Problem(s): Venous ulcer of left leg (CMS-HCC) Venous reflux ultrasound and compression therapy [facility] Evaluation + Plan note* Assessment & Plan Note - Greer Su MD - 01/03/2024 10:47 AM EDT Associated Problem(s): Venous ulcer of left leg (CMS-HCC) Venous reflux ultrasound and compression therapy [facility] History of Present illness Narrative* Greer Su MD - 01/03/2024 10:30 AM EDT Images from the original note were not included. To: KATELYNN CLARK MD HPI: Kami Fink is a 73 y.o. female with Left lower extremity nonhealing venous ulcer. She has knownhistory of peripheral arterial disease and occlusive disease. No recent testing. No venous insufficiency testing or ELVIN with PVR. She had a recent fracture of her left knee. She is immobilized there.She is on anticoagulation for DVT as well. She is on Eliquis.. Review of Systems: Review of Systems Constitutional: Negative. HENT: Negative. Respiratory: Negative. Cardiovascular: Negative. Gastrointestinal: Negative. Endocrine: Negative. Genitourinary: Negative. Musculoskeletal: Negative. Skin: Negative. Neurological: Negative. Hematological: Negative. Medications: Current Outpatient Medications on File Prior to Visit Medication Sig Dispense Refill apixaban (ELIQUIS) 5 mg tablet Take 1 tablet (5 mg total) by mouth in the morning and 1 tablet (5 mg total) before bedtime. atorvastatin (LIPITOR) 40 mg tablet Take 1 tablet (40 mg total) by mouth in the morning. diclofenac (VOLTAREN) 75 mg EC tablet Take 1 tablet (75 mg total) by mouth daily as needed. metoprolol succinate XL (TOPROL XL) 100 mg 24 hr tablet Take 1 tablet (100 mg total) by mouth in the morning. traMADoL (ULTRAM) 50 mg tablet Take 1 tablet (50 mg total) by mouth every 6 (six) hours as needed. verapamil SR (CALAN-SR) 180 mg CR tablet Take 1 tablet (180 mg total) by mouth in the morning. No current facility-administered medications on file prior to visit. Past Medical History: Past Medical History: Diagnosis Date Clotting disorder (CMS-HCC) Deep vein thrombosis (CMS-HCC) History of arterial disease of lower extremity History of transfusion Hypertension Past Surgical History: No past surgical history on file. Social and Family History: Social History Socioeconomic History Marital status: Spouse name: Not on file Number of children: Not on file Years of education: Not on file Highest education level: Not on file Occupational History Not on file Tobacco Use Smoking status: Never Smokeless tobacco: Never Substance and Sexual Activity Alcohol use: Yes Alcohol/week: 2.0 standard drinks of alcohol Types: 2 Glasses of wine per week Drug use: Not on file Sexual activity: Not on file Other Topics Concern Not on file Social History Narrative Not on file Social Determinants of Health Financial Resource Strain: Not on file Food Insecurity: No Food Insecurity (01/03/2024) Hunger Screening Food Insecurity - Worry: Never True Food Insecurity - Inability: Never True Transportation Needs: Not on file Physical Activity: Not on file Stress: Not on file Social Connections: Not on file Interpersonal Safety: Not on file Housing Instability: Not on file No family history on file. Recent Labs: Recent and relative labs were reviewed and interpreted and contributed to the assessment and plan below. Vitals: BP 145/87 (BP Site: Right Arm, BP Postition: Sitting, BP CUFF SIZE: M (9-13 inches)) Pulse 116 Ht 162.6 cm (5' 4 ) Wt 92.1 kg (203 lb) SpO2 98% BMI 34.84 kg/m Body mass index is 34.84 kg/m . Physical Exam: Physical Exam Constitutional: Appearance: Normal appearance. HENT: Head: Normocephalic and atraumatic. Mouth/Throat: Mouth: Mucous membranes are moist. Eyes: Extraocular Movements: Extraocular movements intact. Pupils: Pupils are equal, round, and reactive to light. Cardiovascular: Rate and Rhythm: Normal rate and regular rhythm. Pulmonary: Effort: Pulmonary effort is normal. Breath sounds: Normal breath sounds. Abdominal: General: Abdomen is flat. Bowel sounds are normal. Palpations: Abdomen is soft. Musculoskeletal: General: Normal range of motion. Cervical back: Normal range of motion. Skin: General: Skin is warm and dry. Neurological: General: No focal deficit present. Mental Status: She is alert and oriented to person, place, and time. Mental status is at baseline. Psychiatric: Mood and Affect: Mood normal. Behavior: Behavior normal. Thought Content: Thought content normal. Judgment: Judgment normal. Recent testing: Assessment and Plan: Problem List Venous ulcer of left leg ([facility]-HCC) Current Assessment & Plan Venous reflux ultrasound and compression therapy Relevant Orders Vas venous duplex insufficiency lwr bi Vas art doppler lwr bilat mult lev/PVR Critical limb ischemia of left lower extremity with gangrene ([facility]-HCC) - Primary Current Assessment & Plan PVR with toe pressure Relevant Orders Vas venous duplex insufficiency lwr bi Vas art doppler lwr bilat mult lev/PVR Kami was seen today for post-op peripheral arterial bypass and edema. Diagnoses and all orders for this visit: Critical limb ischemia of left lower extremity with gangrene (CMS-HCC) - Vas venous duplex insufficiency lwr bi; Future - Vas art doppler lwr bilat mult lev/PVR; Future Abnormal ankle brachial index (ELVIN) - [facility] [place], [place] - Vas venous duplex insufficiency lwr bi; Future - Vas art doppler lwr bilat mult lev/PVR; Future Venous ulcer of left leg (CMS-HCC) - Vas venous duplex insufficiency lwr bi; Future - Vas art doppler lwr bilat mult lev/PVR; Future Continue statin therapy and Eliquis for now. Greer Su MD, DEMI, RPVI, FSVS, FACS [facility] This note was created with the assistance of a speech recognition program. While intending to generate a timely document that accurately reflects the content of the visit, no guarantee can be provided that every grammatical or spelling mistake has been or will be identified or corrected. Thank you for your understanding. [facility] Evaluation note* Encounter Date Diagnosis Assessment Notes Treatment Notes Treatment Clinical Notes Aug, Spondylolisthesis, lumbar region (ICD-10 - M43.16) Independently reviewed [...] Aug, Lower extremity edema (ICD-10 - R60.0) [facility] Other 02-01-2024 Evaluation note* Encounter Date Diagnosis Assessment Notes Treatment Notes Treatment Clinical Notes Aug, Leg edema, right (ICD-10 - R60.0) Check US today, discussed other possibilities but r/o DVT first. [facility] Other 12-19-2023 Evaluation note* Encounter Date Diagnosis Assessment Notes Treatment Notes Treatment Clinical Notes Jun, Lumbar pain (ICD-10 - M54.50) [facility] Other 11-27-2023 Evaluation note* Encounter Date Diagnosis Assessment Notes Treatment Notes Treatment Clinical Notes May, DDD (degenerative disc disease), lumbar (ICD-10 - M51.36) [facility] Other 11-14-2023 Evaluation note* Encounter Date Diagnosis Assessment Notes Treatment Notes Treatment Clinical Notes May, Peripheral polyneuropathy (ICD-10 - G62.9) Requests labs to r/o metabolic causes. May, Lumbar pain (ICD-10 - M54.50) Chronic lumbar pain. Agrees to start w xray. May, Paronychia, toe, lef t (ICD-10 - L03.032) Pt requests antibiotic at end of visit. Keep foot clean and dry. [facility] Other 08-31-2023 Evaluation note* Encounter Date Diagnosis [...] wedding planned the end of August 2023. [facility] Other 07-27-2023 Evaluation note* Encounter Date Diagnosis [...] it is not something that I prescribed. [facility] Other 07-06-2023 Evaluation note* Encounter Date Diagnosis Assessment Notes Treatment Notes Treatment Clinical Notes Jan, Easy bruisability (ICD-10 - R23.3) Pt will get labs today. Discussed possible link w the frequent NSAIDs Jan, Essential (primary) hypertension (ICD-10 - I10) Due for labs. Possible elevated glucose - nonfasting, had steroid pills and injections due to foot issues. She is seeing podiatry for plantar fasciitis. [facility] Other 07-06-2023 Evaluation note* Encounter Date Diagnosis [...] symptoms. Any developing patterns. Stay well hydrated. [facility] Other 05-31-2023 NotePROCEDURE: XR FOOT LT MIN [...] by: TIM TORREZ Date: 2022-12-13 08:39[facility]05-30[facility] Evaluation note* Encounter Date Diagnosis Assessment Notes Treatment Notes Treatment Clinical Notes November, Left foot pain (ICD-10 - M79.672) Discussed primary concern of stress fracture. Pt agrees to xray. Reviewed ortho notes. She is to followup there prn. [facility] Other 2023 Evaluation note* Encounter Date Diagnosis Assessment Notes Treatment Notes Treatment Clinical Notes Oct, History of total right knee replacement (ICD-10 - Z96.651) Oct, Primary osteoarthritis of both knees (ICD-10 - M17.0) Oct, Other [facility] at [facility] on 10/24/2021 Happy with surgical result Follow [...] as needed basis for the left knee. [facility] Other 09-29-2022 Evaluation note* Encounter Date Diagnosis Assessment Notes Treatment Notes Treatment Clinical Notes Mar, Primary osteoarthritis of both knees (ICD-10 - M17.0) [facility] Other 08-22-2022 Evaluation note* Encounter Date Diagnosis [...] note writ ten by Richar Kruger LPN, Armed Security Officer. Edited and approved by Dr. Wayne Mccallum MD. [facility] Other 07-06-2022 Evaluation note* Encounter Date Diagnosis Assessment Notes Treatment Notes Treatment Clinical Notes Jan, Primary osteoarthritis of both knees (ICD-10 - M17.0) Jan, Aftercare following joint replacement surgery (ICD-10 - Z47.1) Jan, History of total right knee replacement (ICD-10 - Z96.651) Jan, Other [facility] at [facility] on 10/24/2021 Doing well Discussed post-op dental prophylaxis. Shared decision made to continue prophylactic antibiotics indefinitely. Follow-up at 1 year post-op for repeat examination and 2 view x-rays of the right knee. Patient instructed to call with any questions or concerns. [facility] Other 05-25-2022 Evaluation note* Encounter Date Diagnosis Assessment Notes Treatment Notes Treatment Clinical Notes November, Primary osteoarthritis of both knees (ICD-10 - M17.0) November, Aftercare following joint replacement surgery (ICD-10 - Z47.1) November, History of total right knee replacement (ICD-10 - Z96.651) November, Other [facility] at [facility] on 10/24/2021 Doing well Patient may continue activities as tolerated. Continue PT as recommended. Continue taking [id number] anti-inflammatori es as needed for assistance with swelling and pain associated with the operative extremity. Follow-up in 6 weeks for repeat examination and long standing x-rays. [facility] Other 05-04-2022 Evaluation note* Encounter Date Diagnosis [...] for 3 views of the right knee. [facility] Other 04-01-2022 Evaluation note* Encounter Date Diagnosis [...] could proceed with surgery safely. The manager statistics was vital for surgery timing and scheduling [...] plans. Prolonged services time spent: 37 minutes [facility] Other 04-01-2022 History general Narrative - Reported* Type Description Date Medical History hypertension Surgical History bilateral SANDRO Surgical History abdominal surgery Surgical History RT TKR 10/2021 Hospitalization History see above [facility] Other 04-01-2022 History general Narrative - Reported* Type Description Date Medical History hypertension Surgical History bilateral SANDRO Surgical History abdominal surgery Surgical History RT TKR 10/2021 Surgical History COLONOSCOPY Hospitalization History see above [facility] Other 04-01-2022 History general Narrative - Reported* Type Description Date Medical History hypertension Medical History Frozen shoulder Medical History Lumbar pain Surgical History bilateral SANDRO Surgical History abdominal surgery Surgical History RT TKR 10/2021 Surgical History COLONOSCOPY Hospitalization History see above [facility] Other 03-24-2022 Evaluation note* Encounter Date Diagnosis [...] rehab stay. Joints Meeting Checklist - Pharmacy: [facility] to bed - Approach/Technique: ZULLY [...] elected to proceed with the above surgery. [facility] Other 03-01-2022 Evaluation note* Encounter Date Diagnosis [...] note writ ten by Richar Kruger LPN, Armed Security Officer. Edited and approved by Dr. Wayne Mccallum MD. [facility] Other 03-01-2022 Evaluation note* Encounter Date Diagnosis Assessment Notes Treatment Notes Treatment Clinical Notes Sep, Primary osteoarthritis of both knees (ICD-10 - M17.0) [facility] Other 01-25-2022 Evaluation note* Encounter Date Diagnosis Assessment Notes Treatment Notes Treatment Clinical Notes Jul, Primary osteoarthritis of both knees (ICD-10 - M17.0) [facility] Other 01-13-2022 Evaluation note* Encounter Date Diagnosis [...] note writ ten by Richar Kruger LPN, Armed Security Officer. Edited and approved by Dr. Wayne Mccallum MD. [facility] Other 10-28-2021 Evaluation note* Encounter Date Diagnosis [...] note writ ten by Nissa Murillo CMA, Armed Security Officer. Edited and approved by Dr. Wayne Mccallum MD. [facility] [employer] Other Evaluation noteNo assessment information available [facility] Work Phone: Evaluation noteNo InformationNortGeisinger [facility] Other Evaluation note* Diagnosis Onset Date Resolution Status Right femoral vein DVT acute [facility] Work Phone: Evaluation note* Diagnosis Onset Date Resolution Status Essential (primary) hypertension acute Knee arthropathy acute Right femoral vein DVT acute PAD (peripheral artery disease) acute Primary osteoarthritis of left knee acute [facility] Work Phone: Evaluation note* Diagnosis Onset Date Resolution Status Essential (primary) hypertension acute Knee arthropathy acute Right femoral vein DVT acute PAD (peripheral artery disease) acute Primary osteoarthritis of left knee acute PAD (peripheral artery disease) acute Venous ulcer of left leg acu te [facility] Work Phone: Evaluation note* Diagnosis Onset Date Resolution Status Primary osteoarthritis of left knee acute PAD (peripheral artery disease) acute Venous ulcer of left leg acu te Primary osteoarthritis of left knee acute [facility] Work Phone: Evaluation note* Diagnosis Critical limb ischemia of left lower extremity with gangrene (CMS-HCC)- Primary Abnormal ankle brachial index (ELVIN) Venous ulcer of left leg (CMS-HCC) [facility] Diagnosis Venous ulcer of left leg (CMS-HCC)- Primary [facility]* Diagnosis Venous ulcer of left leg (CMS-HCC)- Primary Critical limb ischemia of left lower extremity with gangrene (CMS-HCC) [facility]* Diagnosis Pre-operative clearance Preoperative examination, unspecified Leg edema Edema Paroxysmal atrial fibrillation (HCC) Atrial fibrillation documented in this encounter [facility] general Narrative - Reported* Type Description Date Medical History hypertension Surgical History bilateral SANDRO Surgical History abdominal surgery [facility] Other Hospital Discharge instructionsAmbulatory Orders* Referral to Wound Care Time Frame: 10/15/23, Location: None Selected [facility] Work Phone: InstructionsNot on filedocumented in this encounter [facility] SystemInstructionsNot on filedocumented in this encounter [facility] System[facility]ructionsNot on filedocumented in this encounter [facility] SystemReason for referral (narrative)No reason for referral information availableA[facility]man [facility] Work Phone: Reason for visit Narrative* Imaging (Routine) - Pending Review Specialty Diagnoses / Procedures Referred By Eugenia t Referred To Contact Cardiology Diagnoses Pre-operative clearance Leg edema Paroxysmal atrial fibrillation (HCC) Procedures Echo (TTE) complete (PRN contrast/bubble/strain/3D) KS ECHO TTHRC R-T 2D W/WOM-MODE COMPL SPEC&COLR D KS TTE W OR WO FOL WCON,DOPPLER Vickey Mata MD [address] [facility] [id number] [place] [address] Phone: tel: fax: Referral ID Status Reason Start Date Expiration Date V isits Requested Visits Authorized [id number] Pending Review 11/16/2024 11/14/2025 1 [facility] Family History Relationship Condition Age at Onset [...] Specified Unknown natural son Heart disease Unknown Relationship Condition Age at Onset Recorded Date/T lucas father Heart problem Unknown Congestive heart failure Unknown mother Myocardial infarction Unknown sister Non-Hodgkin's lymphoma Unknown father Unknown Hypertension Unknown family member Unknown mother Unknown son Heart disease Unknown Relationship Condition Age at Onset Recorded Date/T lucas father Heart problem Unknown Congestive heart failure Unknown mother Myocardial infarction Unknown sister Non-Hodgkin's lymphoma Unknown father Unknown Hypertension Unknown family member Unknown mother Unknown son Heart disease Unknown father Congestive heart failure Unknown Advance Directives Advance Directive Response Recorded Date/ Time Advance Directives No November 29 12:37pm Advance Directive Response Recorded Date/ Time Advance Directives No November 29 1:37pm Advance Directive Response Recorded Date/ Time Advance Directives Yes June 11:09am Summary Purpose Reason for Referral Specialty Diagnoses / Procedures Referred By Contac t Referred To Contact Diagnoses Abnormal ankle brachial index (ELVIN) Critical limb ischemia of left lower extremity with gangrene (CMS-HCC) Venous ulcer of left leg (CMS-HCC) Procedures Vas art doppler lwr bilat mult lev/PVR Greer Su MD [address], [address] [address] Referral ID Status Reason Start Date Expiration Date V isits Requested Visits Authorized [id number] Pending Review 01/03/2024 01/02/2025 1 1 Specialty Diagnoses / Procedures Referred By Contac t Referred To Contact Diagnoses Abnormal ankle brachial index (ELVIN) Critical limb ischemia of left lower extremity with gangrene (CMS-HCC) Venous ulcer of left leg ([facility]-HCC) Procedures Vas venous duplex insufficiency lwr bi Greer Su MD [address], [address] [address] Referral ID Status Reason Start Date Expiration Date V isits Requested Visits Authorized [id number] Pending Review 01/03/2024 01/02/2025 1 1 Reason evaluate and t reat Diagnosis 1 Lumbar pain (M54.50) Referral Organization [facility] Referring Provider First Name Ny Referring Provider Last Name Annabel Referring Provider Specialty Nurse Pract itioner Referred Organization [facility] Referred Provider Wayne Mccallum Referred Address [address] [place],[address] Referred Provider Specialty Pain Medicin e Referral Priority Routine General Notes Eryn Reynoso 02:02:11 PM >received today, patient previously seen by Dr Mccallum (last visit Feb 2022) and is still considered established. sending p2p at this time for scheduling. Reason evaluate and t reat for peripheral vascular disease Diagnosis 1 Peripheral vascular disease (I73.9) Referral Organization [facility] Referring Provider First Name Ny Referring Provider Last Name Annabel Referring Provider Specialty Nurse Ana Lilia stevens Referred Organization [facility] Vascular Surge ry Referred Provider iWlly Yancey Referred Address [address] [facility] [address],[place], [place],[address] Referred Provider Specialty Vascular Samantha piotr Referral Priority Routine General Notes Eryn Reynoso 02:08:33 PM >received today, p2p sent for scheduling Reason *Waiting for appt chronic lumbar - recent MRI Diagnosis 1 Lumbar pain (M54.50) Referral Organization [facility] Referring Provider First Name Katelynn Referring Provider Last Name Amber Referring Provider Specialty Family Medi cine Referred Organization [facility] Referred Provider Jose Clark Referred Address [address] [facility] [address] ,[place], [place],[address] Referred Provider Specialty Neurological Surgery Referral Priority [...] left leg Primary osteoarthritis of left knee Chief Complaint Admit Date CC Adult Risk Stratification May 11:00am medication question May 30, 2024 10:43am Chief Complaint Admit Date Surgical Clearance/Discuss Meds November 032024 1:01pm Chief Complaint Admit Date Surgical Clearance/Discuss Meds November 032024 1:01pm Unknown November 06, 2024 3:0 0pm Reason for Visit Admit Date Essential (primary) hypertension October 152024 1:01pm Primary osteoarthritis of left knee Apri l 2024 1:01pm Right femoral vein DVT November 03, 2024 1:01pm Chief Complaint Admit Date L Red Eye/Post Knee Surgery December 30, 1:47pm wellness March 09, 2025 1: 27pm Reason for Visit Admit Date Essential (primary) hypertension December 302024 1:47pm Left conjunctivitis December 30, 2024 1:47 pm Paroxysmal atrial fibrillation December 1:47pm Status post left knee replacement December 142024 1:47pm Class 1 obesity with body ma ss index (BMI) of 34.0 to 34.9 in adult March 09, 2025 1:27pm Essential (primary) hypertension March 09, 2025 1:27pm Hyperlipidemia, unspecified March 09, 2025 1:27pm Medicare annual wellness visit, subseque nt March 09, 2025 1:27pm Paroxysmal atrial fibrillation March 092024 1:27pm Screening mammogram for breast cancer Au 2024 1:27pm Additional Source Comments REASON FOR VISIT (unrecogniz ed section and content) Reason Comments Post-op Peripheral Arterial Bypass New R pamela from Dr. Clark for Dr. Su for Abnormal ankle brachial index (ELVIN) records requested and Warren called for ELVIN Disk pushedto PACS Edema Wound not healing , Wound clinic would like you to look deeper into the PAD Specialty Diagnoses / Procedures Referred By Eugenia parkinson Referred To Contact Vascular Surgery Diagnoses Abnormal ankle brachial index (ELVIN) Katelynn Clark MD [address] [place] [id number] Greer Su MD [address] [place] [address] Referral ID Status Reason Start Date Expiration Date Visits Requested Visits Authorized [id number] Pending Review Specialty Services Required 11/29/2023 11/28/2024 1 1 Reason Comments Critical Limb Ischemia Reason Comments 1 month follow up with no testing prior Venous ulcer of lef Care Teams (unrecognized sec tion and content) Team Status: Active Member Role Status Dates Katelynn Clark MD Primary Care Provider Active Team Status: Inactive Member Role Status Dates Katelynn Clark MD Primary Care Provide r, Attending Provider Active Start: November 03, 2024 End: November 03, 2024 Team Status: Active Member Role Status Dates Katelynn Clark MD Primary Care Provide r, Attending Provider Active Start: May 22, 2024 Team Status: Inactive Member Role Status Dates Katelynn Clark MD Primary Care Provide r, Attending Provider Active Start: May 30, 2024 End: May 30, 2024 Team Status: Inactive Member Role Status Dates Katelynn Clark MD Attending Provider Active St art: August 16, 2023 End: August 16, 2023 Team Status: Inactive Member Role Status Dates Katelynn Clark MD Primary Care Provide r, Attending Provider Active Start: August 30, 2023 End: August 30, 2023 Team Status: Inactive Member Role Status Dates Katelynn Clark MD Primary Care Provider Active Start: September 13, 2023 End: September 13, 2023 Willy Yancey MD Attending Provider Active Start: September 13, 2023 End: September 13, 2023 NORA Izaguirre Referring Provider Active Start: September 13, 2023 End: September 13, 2023 Team Status: Inactive Member Role Status Dates Katelynn Clark MD Primary Care Provider Active Start: September 13, 2023 End: September 13, 2023 Willy Yancey MD Attending Provider Active Start: September 13, 2023 End: September 13, 2023 Team Status: Inactive Member Role Status Dates Katelynn Clark MD Primary Care Provider Active Start: October 04, 2023 End: October 04, 2023 Jose Najera II, MD Active Sta rt: October 04, 2023 End: October 04, 2023 NORA Castro Attending Provider Active Start: October 04, 2023 End: October 04, 2023 Team Status: Inactive Member Role Status Dates Katelynn Clark MD Primary Care Provider Active Jose Najera II, MD Attending Provider Active Team Status: Active Member Role Status Dates Provider Conversion Attending Provider Active St art: June 27, 2023 Team Status: Inactive Member Role Status Dates Katelynn Clark MD Primary Care Provide r, Attending Provider Active Start: October 15, 2023 End: October 15, 2023 Team Status: Inactive Member Role Status Dates Katelynn Clark MD Primary Care Provider Active Start: December 13, 2023 End: December 13, 2023 Jose Najera II, MD Attending Provider Active Start: December 13, 2023 End: December 13, 2023 Passenger Service Representative Relationship Specialty Start Date End Date Katelynn Clark MD [address] [place], [place] [id number] PCP - General Family Medicine 11/29/23 Passenger Service Representative Relationship Specialty Start Date End Date Katelynn Clark MD [address] [place] [id number] PCP - General Family Medicine 11/29/23 Passenger Service Representative Relationship Specialty Start Date End Date Katelynn Clark MD [address] [place] [id number] PCP - General Family Medicine 11/29/23 Team Status: Inactive Member Role Status Dates NON STAFF Attending Provider Active Start: 2024 End: November 06, 2024 Team Status: Inactive Member Role Status Dates Katelynn Clark MD Primary Care Provider Active Start: December 30, 2024 End: December 30, 2024 Katelynn Clark MD Attending Provider Active St art: December 30, 2024 End: December 30, 2024 Team Status: Inactive Member Role Status Dates Katelynn Clark MD Primary Care Provider Active Start: March 09, 2025 End: March 09, 2025 Katelynn Clark MD Attending Provider Active St art: March 09, 2025 End: March 09, 2025 Goals (unrecognized section and content) Goals may be documented in a n alternate section INFORMATION SOURCE (unrecogn ized section and content) DATE CREATED AUTHOR 12/22/2022 [facility] DATE CREATED AUTHOR AUTHOR'S ORGANIZ ATION 06/20/2023 [facility] DATE CREATED AUTHOR AUTHOR'S ORGANIZ ATION 11/21/2024 Kassi salas DATE CREATED AUTHOR AUTHOR'S ORGANIZ ATION 11/30/2024 [facility] DATE CREATED AUTHOR AUTHOR'S ORGANIZ ATION 12/10/2024 [facility] DATE CREATED AUTHOR AUTHOR'S ORGANIZ ATION 12/11/2024 [facility] DATE CREATED AUTHOR AUTHOR'S ORGANIZ ATION 02/24/2025 [facility] FOR RECORDS PERTAINING TO PATIENTS [...] BE BASED ON THE PRIMARY CLINICAL RECORDS. [facility]. provides no warranty or guarantee of the accuracy or completeness of information in this document.
== END 2025-03-18 11:22 | disposition home or self-care (01) ==
LOC: MAMMO 11:21
PROVIDERS: PCP Family Medicine; Visit Provider Family Medicine
DX: Z12.31 Encounter for screening mammogram for malignant neoplasm of breast (principal); Z80.7 Family history of other malignant neoplasms of lymphoid, hematopoietic and related tissues
CPT/HCPCS: 77063; 77067

== ENCOUNTER 2025-04-03 10:56 | Outpatient (OUT) | payer MEDICARE, SELFPAY ==
--- OUTSIDE RECORDS SUMMARY | 2025-04-03 11:00 | XMS_ITS | Clinical Summary ---
Author Organization [facility] Address [address] [place] [address] Care Team Providers Care Garment Looper Name Role Phone Vashti Engle MD Primary Care Provider [phone] Allergies No known active allergies Medications diclofenac (Voltaren) 75 MG EC tablet Take 75 mg by mouth 2 (two) times a day as needed. 12/10/2022 Active metoprolol tartrate (Lopressor) 100 MG tablet Take 100 mg by mouth in the morning and 100 mg before bedtime. 11/26/2022 Active verapamil SR (Calan SR) 180 MG ER tablet Take 180 mg by mouth in the morning. 10/11/2022 Active Active Problems No known active problems Family History Medical History Relation Name Comments Heart disease Mother Hypertension Mother Relation Name Status Comments Father Mother Social History Tobacco Use Types Packs/Day Years Used Date Smoking Tobacco: Never Smokeless Tobacco: Never Tobacco Cessation:Counseling Given: Yes Alcohol Use Standard Drinks/Week Comments Yes 2 (1 standard drink = 0.6 oz pur e alcohol) Comments Unknown Sex and Gender Information Value Date Recorded Sex Assigned at Not on file Legal Sex Female 7:17 PM EDT Gender Identity Not on file Sexual Orientation Not on file Last Filed Vital Signs Vital Sign Reading Time Taken Comments Blood Pressure 124/81 06/18/2023 1:25 PM EST Pulse 76 06/18/2023 1:25 PM EST Temperature - - Respiratory Rate - - Oxygen Saturation - - Inhaled Oxygen Concentration - - Weight 95.3 kg (210 lb) 06/18/2023 1:25 PM EST Height 162.6 cm (5' 4 ) 06/18/2023 1:25 PM EST Body Mass Index 36.05 06/18/2023 1:25 PM EST Plan of Treatment Health Maintenance Due Date Last Done Comments Pneumococcal Vaccine: 65+ Ye ars (2 of 2 - PPSV23) 05/18/2018 05/18/2017 Influenza Vaccine (#1) 2025 2, 06/02/2021, 04/21/2019, Additional history exists Insurance MEDICARE [facility] Care Teams Garment Looper Relationship Specialty Start Date End Date Vashti Engle MD PCP - General Family Medicine 12/25/22
--- OUTSIDE RECORDS SUMMARY | 2025-04-03 11:00 | XMS_ITS | Encounter Summary ---
Author Organization [facility] Address [address] [facility], [address] [place] [address] Care Team Providers Care Stripper Apprentice Name Role Phone Unavailable Primary Care Provider Unavailabl e Reason for Referral * Imaging (Routine) - Pending Review Specialty Diagnoses / Procedures Referred By Eugenia t Referred To Contact Cardiology Diagnoses Pre-operative clearance Leg edema Paroxysmal atrial fibrillation (HCC) Procedures Echo (TTE) complete (PRN contrast/bubble/strain/3D) VA ECHO TTHRC R-T 2D W/WOM-MODE COMPL SPEC&COLR D VA TTE W OR WO FOL WCON,DOPPLER Kemi Mata MD [address] [facility] [id number] MS:[place] [address] Phone: tel: fax: Referral ID Status Reason Start Date Expiration Date V isits Requested Visits Authorized [id number] Pending Review 11/16/2024 11/14/2025 1 1 Encounter Details Date Type Department Care Team (Late st Contact Info) Description 11/14/2024 Transcribe Orders Alfredo Pre Access [address] [place] [id number] Kemi Mata MD [address] [facility] [address] MS:[place] [address] Pre-operative clearance (Primary Dx); Leg edema; Paroxysmal atrial fibrillation (HCC) Social History Tobacco Use Types Packs/Day Years Used Date Smoking Tobacco: Never Assessed Comments Unknown Sex and Gender Information Value Date Recorded Sex Assigned at Female 11/15/2024 10:04 AM EDT Legal Sex Female 4:06 PM EDT Gender Identity Not on file Sexual Orientation Not on file documented as of this encounter Plan of Treatment Not on file documented as of this encounter Results * (ABNORMAL) ECHO (TTE) COMPLETE (11/18/2024 11:03 AM EDT) LV EDV A2C 56 mL [facility] CV CPACS LV EDV A4C 55 mL [facility] CV CPACS LV ESV A2C 25 mL [facility] CV CPACS LV ESV A4C 27 mL [facility] CV CPACS IVSd 1.1(A) 0.6 - 0.9 cm [facility] CV CPACS LVIDd 4.5 3.9 - 5.3 cm [facility] CV CPACS LVIDs 3.6 cm [facility] LVOT Mean Gradient 1 mmHg [facility] LVOT VTI 13.7 cm [facility] LVOT Peak Velocity 0.6 m/s [facility] LVOT Peak Gradient 2 mmHg [facility] LVPWd 1.0(A) 0.6 - 0.9 cm [facility] LV E' Lateral Velocity 12.10 cm/s [facility] LV Ejection Fraction A2C 55 % [facility] CV [facility]ACS LV Ejection Fraction A4C 52 % [facility]ACS EF BP 55 55 - 100 % [facility] CPACS LA Minor [place] 6.4 cm [facility] CV CPACS LA Major [place] 6.2 cm [facility] CPACS LA Area 2C 24.4 cm2 [facility] CPACS LA Area 4C 23.9 cm2 [facility] CPACS LA Volume MOD A2C 78(A) 22 - 52 mL [facility] CV CPACS LA Volume MOD A4C 77(A) 22 - 52 mL [facility] CPACS LA Volume BP 78(A) 22 - 52 mL [facility] AV Cusp Mmode 2.0 cm [facility] AV Mean Gradient 2 mmHg [facility] AV VTI 18.5 cm [facility] AV Mean Velocity 0.7 m/s [facility] AV Peak Velocity 1.0 m/s [facility] AV Peak Gradient 4 mmHg [facility] CV CPACS Aortic Sinus Valsalva 3.1 cm [facility] CPACS MV E Wave Deceleration Time 197.0 ms [facility] MV E Velocity 1.18 m/s [facility] PV Max Velocity 0.8 m/s [facility] PV Peak Gradient 3 mmHg [facility] RV Basal Dimension 3.0 cm [facility] CV CPACS TAPSE 1.7 >=1.7 cm [facility] CPACS Body Surface Area 2.02 m2 [facility] Fractional Shortening 2D 20 28 - 44 % [facility] LV ESV Index A4C 14 mL/m2 [facility] LV EDV Index A4C 28 mL/m2 [facility] LV ESV Index A2C 13 mL/m2 [facility] LV EDV Index A2C 29 mL/m2 [facility] LVIDd Index 2.31 cm/m2 [facility] LVIDs Index 1.85 cm/m2 [facility] LV RWT Ratio 0.44 [facility] LV Mass 2D 164.0(A) 67 - 162 g [facility] LV Mass 2D Index 84.1 43 - 95 g/m2 [facility] E/E' Lateral 9.75 [facility] LA Volume Index BP 40(A) 16 - 34 ml/m2 [facility] LA Volume Index MOD A2C 40(A) 16 - 34 ml/m2 [facility] LA Volume Index MOD A4C 39(A) 16 - 34 ml/m2 [facility] Aortic Sinus Valsalva Index 1.59 cm/m2 [facility] AV Velocity Ratio 0.60 [facility] LVOT:AV VTI Index 0.74 [facility] Est. RA Pressure 3 mmHg [facility] EF Physician 55 % [facility] Anatomical Region Laterality Modality Echocardiography Narrative 11/18/2024 4:59 PM EDT Left Ventricle: Normal left ventricular systolic function [...] Left atrial volume index is mildly increased (35- 41 mL/m2) mL/m2. Right Atrium Right atrium size [...] Image quality: adequate. No contrast was given. Kemi Mata MD ECHO ORDERABLES Final Result documented in this encounter Visit Diagnoses Diagnosis Pre-operative clearance- Primary Preoperative examination, unspecified Leg edema Edema Paroxysmal atrial fibrillation (HCC) Atrial fibrillation Pre-operative clearance Preoperative examination, unspecified Leg edema Edema Paroxysmal atrial fibrillation (HCC) Atrial fibrillation documented in this encounter
--- OUTSIDE RECORDS SUMMARY | 2025-04-03 11:00 | XMS_ITS | Encounter Summary ---
Author Organization [facility] Address [address] [place] [address] Care Team Providers Care Cut Filer Name Role Phone Vashti Engle MD Primary Care Provider [phone] Encounter Details Date Type Department Care Team (Late st Contact Info) Description 01/10/2024 Clinisync Result Encounter [facility] External Department Unsolicited Greer Su MD [address], [place] [id number] Social History Tobacco Use Types Packs/Day Years Used Date Smoking Tobacco: Never Smokeless Tobacco: Never Alcohol Use Standard Drinks/Week Comments Yes 2 (1 standard drink = 0.6 oz pur e alcohol) Comments Unknown Sex and Gender Information Value Date Recorded Sex Assigned at Not on file Legal Sex Female 7:17 PM EDT Gender Identity Not on file Sexual Orientation Not on file documented as of this encounter Plan of Treatment Not on file documented as of this encounter Procedures Procedure Name Priority Date/Time Associated Diagnosis Comments VC EXT VENOUS REFLUX NAVJOT LMTD 01/10/2024 3:08 PM EDT documented in this encounter Results * VC EXT VENOUS REFLUX NAVJOT LMTD (01/10/2024 3:08 PM EDT) Anatomical Region Laterality Modality Other 01/10/2024 3:08 PM EDT Narrative 01/10/2024 3:09 PM EDT The [address] [address] Vein Report Signed Patient: RICKKAMI CHEEMA MR#: [id number] : 1950 Acct:[id number] Age/Sex: 73 / F ADM Date: 01/10/24 Loc: VC Attending Dr: Greer Su M.D. Ordering Physician: Greer Su M.D. Date of Service: 01/10/24 Procedure(s): VC EXT Venous Reflux NAVJOT LMTD Accession Number(s): [id number] cc: Vashti Engle M.D.; Greer Su M.D. Patient Name: KAMI FINK MR#: [id number] : 1950 Exam Date: 01/10/2024 Ordering Doctor: Greer Su M.D. RADIOLOGY REPORT PROCEDURE: VC EXT VENOUS REFLUX NAVJOT LMTD COMPARISON: None. INDICATIONS: I83.029 TECHNIQUE: Duplex imaging of the lower extremity to assess the deep and superficial venous system for the presence of deep or superficial venous incompetence and to document the location and severity of disease. The study includes evaluation of the great saphenous vein (GSV), anterior accessory saphenous vein (AASV) and small saphenous vein (SSV). Patient scanned in reverse Trendelenburg and standing. FINDINGS: RIGHT LOWER EXTREMITY: Saphenofemoral Junction Reflux: Yes 9.4mm 2.2 sec GSV: Diam (mm) Reflux/ Time (sec) Proximal Thigh 5.5 Yes 0.8 Mid Thigh 4.1 Yes 0.7 Distal Thigh 4.0 No Prox Calf 3.1 No Mid Calf 2.7 No Saphenopopliteal Junction Reflux: 3.9mm No SSV: Proximal Calf 2.2 Yes 0.6 Mid Calf 2.0 No AASV: Proximal Thigh 4.1 Yes 0.9 Mid Thigh 3.1 Yes 0.7 Distal Thigh Thrombi: No acute or chronic thrombus visualized Compressibility: Normal Flow: Normal Preforator: No perforators visualized, difficult to image calf due to fluid filled edema. Tech Note: Incompetent GSV. Patent varicose vein prox/med calf 3.8mm with 0.5s reflux. Patent varicose vein dist/med thigh off of GSV 3.9mm with 0.8s reflux. LEFT LOWER EXTREMITY: Saphenofemoral Junction Reflux: Yes 7.3 mm 1.0 sec GSV: Diam (mm) Reflux/Time (sec) Proximal Thigh 6.4 Yes 0.4 Mid Thigh 4.6 Yes 0.7 Distal Thigh 4.9 Yes 1.0 Prox Calf 5.1 Yes 0.8 Mid Calf 4.9 Yes 0.9 Saphenopopliteal Junction Relux: 3.0 mm Yes 0.6 SSV: Proximal Calf 2.5 Yes 0.6 Mid Calf 2.6 No AASV: Proximal Thigh 6.1 Yes 1.9 Mid Thigh Distal Thigh Thrombi: No acute or chronic thrombus visualized Compressibility: Normal Flow: Normal Business Systems Consultant: Dist/med calf in area of wound 6.2mm with 1.4s reflux. Tech Note: Incompetent GSV and development analyst. Patent varicose vein prox/med calf off of GSV 3.9mm with 0.9s reflux. Patent varicose vein mid/med thigh off of GSV 5.3mm with 1.8s reflux. CONCLUSION: 1. Mild bilateral great saphenous vein venous insufficiency with saphenofemoral junction reflux 2. Minimal bilateral small saphenous vein venous insufficiency without dilatation 3. Mild bilateral anterior accessory saphenous vein venous insufficiency 4. Incompetent perforating vein in the left leg in the region of the patient's wound 5. 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 Signed By: 01/10/24 1509 DD/ 1508 TD/TT: Nylon Machine Operator: Procedure Note Radiology, Radiologist, MD - 01/10/2024 [place] [address] Vein Report Signed Patient: KAMI FINK JMR#: [id number] : 8Acct:[id number] Age/Sex: 73 / FADM Date: 01/10/24 Loc: VC Attending Dr: Greer Su M.D. Ordering Physician: Greer Su M.D. Date of Service: 01/10/24 Procedure(s): VC EXT Venous Reflux NAVJOT LMTD Accession Number(s): [id number] cc: Vashti Engle M.D.; Greer Su M.D. Patient Name: KAIM FINK MR#: [id number] : 1950 Exam Date: 01/10/2024 Ordering Doctor: Greer Su M.D. RADIOLOGY REPORT PROCEDURE: VC EXT VENOUS REFLUX NAVJOT LMTD COMPARISON: None. INDICATIONS: I83.029 TECHNIQUE: Duplex imaging of the lower extremity to assess the deepand superficial venous system for the presence of deep or superficial venous incompetence and to document the location and severity of disease. Thestudy includes evaluation of the great saphenous vein (GSV), anterior accessory saphenous vein (AASV) and small saphenous vein (SSV). Patient scanned in reverse Trendelenburg and standing. FINDINGS: RIGHT LOWER EXTREMITY: Saphenofemoral Junction Reflux: Yes 9.4mm 2.2 sec GSV: Diam (mm) Reflux/ Time (sec) Proximal Thigh 5.5 Yes 0.8 Mid Thigh 4.1 Yes 0.7 Distal Thigh 4.0 No Prox Calf 3.1 No Mid Calf 2.7 No Saphenopopliteal Junction Reflux: 3.9mm No SSV: Proximal Calf 2.2 Yes 0.6 Mid Calf 2.0 No AASV: Proximal Thigh 4.1 Yes 0.9 Mid Thigh 3.1 Yes 0.7 Distal Thigh Thrombi: No acute or chronic thrombus visualized Compressibility: Normal Flow: Normal Preforator: No perforators visualized, difficult to image calf due to fluid fillededema. Tech Note: Incompetent GSV. Patent varicose vein prox/med calf 3.8mm with0.5s reflux. Patent varicose vein dist/med thigh off of GSV 3.9mm with 0.8sreflux. LEFT LOWER EXTREMITY: Saphenofemoral Junction Reflux: Yes 7.3 mm 1.0 sec GSV: Diam (mm) Reflux/Time (sec) Proximal Thigh 6.4 Yes 0.4 Mid Thigh 4.6 Yes 0.7 Distal Thigh 4.9 Yes 1.0 Prox Calf 5.1 Yes 0.8 Mid Calf 4.9 Yes 0.9 Saphenopopliteal Junction Relux: 3.0 mm Yes 0.6 SSV: Proximal Calf 2.5 Yes 0.6 Mid Calf 2.6 No AASV: Proximal Thigh 6.1 Yes 1.9 Mid Thigh Distal Thigh Thrombi: No acute or chronic thrombus visualized Compressibility: Normal Flow: Normal Business Systems Consultant: Dist/med calf in area of wound 6.2mm with 1.4s reflux. Tech Note: Incompetent GSV and development analyst. Patent varicose vein prox/medcalf off of GSV 3.9mm with 0.9s reflux. Patent varicose vein mid/med thigh offof GSV 5.3mm with 1.8s reflux. CONCLUSION: 1. Mild bilateral great saphenous vein venous insufficiency with saphenofemoral junction reflux 2. Minimal bilateral small saphenous vein venous insufficiency without dilatation 3. Mild bilateral anterior accessory saphenous vein venous insufficiency 4. Incompetent perforating vein in the left leg in the region of thepatient's wound 5. 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 Signed By:01/10/24 1509 DD/ 1508 TD/TT: Nylon Machine Operator: Greer Su MD [facility] Final Resu lt documented in this encounter Visit Diagnoses Not on filedocumented in this encounter Care Teams Cut Filer Relationship Specialty Start Date End Date Vashti Egnle MD PCP - General Family Medicine 12/25/22 documented as of this encounter
--- OUTSIDE RECORDS SUMMARY | 2025-04-03 11:00 | XMS_ITS | Encounter Summary ---
Author Organization [facility] Address [address] [place] [address] Care Team Providers Care Seaming Machine Operator Name Role Phone Vashti Engle MD Primary Care Provider [phone] Encounter Details Date Type Department Care Team (Late st Contact Info) Description 12/27/2023 Orders Only [facility] [address] [facility] [place] [address] Samuel Georges MD [address] [place] [address] Social History Tobacco Use Types Packs/Day Years [...] on file documented as of this encounter Visit Diagnoses Not on filedocumented in this encounter Care Teams Seaming Machine Operator Relationship Specialty Start Date End Date Vashti Engle MD PCP - General Family Medicine 12/25/22 documented as of this encounter
--- OUTSIDE RECORDS SUMMARY | 2025-04-03 11:01 | XMS_ITS | Clinical Summary ---
Author Organization [facility] Address [address], [address] [place] [address] Care Team Providers Care Lead Clinical Research Coordinator Name Role Phone Unavailable Primary Care Provider Unavailabl e Social History Tobacco Use Types Packs/Day Years Used Date Smoking Tobacco: Never Assessed Comments Unknown Sex and Gender Information Value Date Recorded Sex Assigned at Female 11/15/2024 10:04 AM EDT Legal Sex Female 4:06 PM EDT Gender Identity Not on file Sexual Orientation Not on file Last Filed Vital Signs Vital Sign Reading Time Taken Comments Blood Pressure - - Pulse - - Temperature - - Respiratory Rate - - Oxygen Saturation - - Inhaled Oxygen Concentration - - Weight 90.3 kg (199 lb) 11/18/2024 11:01 AM EDT Height 162.5 cm (5' 3.98 ) 11/18/2024 11:01 AM E DT Body Mass Index 34.18 11/18/2024 11:01 AM EDT Plan of Treatment Health Maintenance Due Date Last Done Comments Depression Screen 1960 Hepatitis C screen 1966 DTaP/Tdap/Td vaccine (1 - Tdap) 1967 Shingles vaccine (1 of 2) 1998 DEXA (modify frequency per FRAX score) 2003 Pneumococcal 50+ years Vaccine (2 of 2 - PCV20 or PCV21) 05/18/2018 05/18/2017 Annual Wellness Visit (Medicare) 11/18/2024 Flu vaccine (#1) 02/13/2025 05/30/2024, 04/2022, 06/02/2021, Additional history exists COVID-19 Vaccine ( season) 2025 05/30/2024, 08/28/2023, 05/13/2022, Additional history exists Respiratory Syncytial Virus (RSV) or age 60 yrs+ Completed 09/18/2023 Hepatitis A vaccine Aged Out No longe r eligible based on patient's age to complete this topic Hepatitis B vaccine Aged Out No longe r eligible based on patient's age to complete this topic Hib vaccine Aged Out No longer eligi ble based on patient's age to complete this topic Meningococcal (ACWY) vaccine Aged Out No longer eligible based on patient's age to complete this topic Meningococcal B vaccine Aged Out No l onger eligible based on patient's age to complete this topic Polio vaccine Aged Out No longer elig ible based on patient's age to complete this topic Insurance MEDICARE [employer] MEDICARE SUPP MEDICARE [employer] MEDICARE SUPP
--- OUTSIDE RECORDS SUMMARY | 2025-04-03 11:01 | XMS_ITS | Encounter Summary ---
Author Organization [facility] Address [address] [place] [address] Care Team Providers Care Software Design Engineer Name Role Phone Vashti Engle MD Primary Care Provider [phone] Encounter Details Date Type Department Care Team (Late st Contact Info) Description 01/10/2024 Clinisync Result Encounter [facility] External Department Unsolicited Greer Su MD [address], [place] [id number] Social History Tobacco Use Types Packs/Day Years [...] Procedure Name Priority Date/Time Associated Diagnosis Comments SEGMENTAL BLOOD PRESSURE 01/10/2024 10:57 AM EDT documented in this encounter Results * SEGMENTAL BLOOD PRESSURE (01/10/2024 10:57 AM EDT) Anatomical Region Laterality Modality Radiographic Roseann ging 01/10/2024 10:5 7 AM EDT Narrative 01/10/2024 11:00 AM EDT The [address] [address] Vein Report Signed Patient: KAMI FINK MR#: [id number] : 1950 Acct:[id number] Age/Sex: 73 / F ADM Date: 01/10/24 Loc: [facility] Attending Dr: Greer Su M.D. Ordering Physician: Greer Su M.D. Date of Service: 01/10/24 Procedure(s): VC SEGMENTAL PRESSURES Accession Number(s): [id number] cc: Vashti Engle M.D.; Greer Su M.D. [place] [address] Patient Name: KAMI FINK MRN: [id number] date: 1950 Sex: F Assigned Patient Location: Current Patient Location: VC Accession/Order Number: [id number] Exam Date: 01/10/2024 08:04 Report Date: 01/10/2024 10:57 At the request of: GREER SU Procedure: VC SEGMENTAL PRESSURES EXAM: VC SEGMENTAL PRESSURES HISTORY: I73.9 , left leg ulcer COMPARISON: None. FINDINGS: Segmental pressures presented as follows (right, left) in mmHg. Brachial: 155, 163 Upper thigh: 187, 178 Lower thigh: 203, 167 Calf: 230, 170 DPA: 204, 161 CERTIFIED HYPERBARIC TECHNOLOGIST: 207, 214 1st Toe: 106, 121 ELVIN: 1.27, 1.31 TBI: 0.65, 0.74 The ABIs are borderline elevated suggesting arterial sclerosis The TBI's are mildly low suggesting low risk of ischemia PVR waveforms: Right leg: Thigh: Moderate to [...] ankle: Moderate to severe peripheral arterial disease VEIN/VC SEGMENTAL PRESSURES IMPRESSION: ABIs suggests arterial sclerosis PVR waveform suggests mild to severe bilateral peripheral arterial disease Electronically authenticated by: NIKHIL ANTHONY Date: 01/10/2024 10:57 Dictated By: Nikhil Anthony M.D. Signed By: 01/10/24 1100 DD/ 1057 TD/TT: Stuffer: Procedure Note Radiology, Radiologist, MD - 01/10/2024 [place] [address] Vein Report Signed Patient: KAMI FINK JMR#: [id number] : 1950cct:[id number] Age/Sex: 73 / FADM Date: 01/10/24 Loc: VC Attending Dr: Greer Su M.D. Ordering Physician: Greer Su M.D. Date of Service: 01/10/24 Procedure(s): VC SEGMENTAL PRESSURES Accession Number(s): [id number] cc: Vashti Engle M.D.; Greer Su M.D. The [place] [id number] Patient Name: KAMI FINK MRN: [id number] date: 1950 Sex: F Assigned Patient Location: Current Patient Location: VC Accession/Order Number: [id number] Exam Date: 01/10/2024 08:04 Report Date: 01/10/2024 10:57 At the request of: GREER SU Procedure: VC SEGMENTAL PRESSURES EXAM: VC SEGMENTAL PRESSURES HISTORY: I73.9 , left leg ulcer COMPARISON: None. FINDINGS: Segmental pressures presented as follows (right, left) in mmHg. Brachial: 155, 163 Upper thigh: 187, 178 Lower thigh: 203, 167 Calf: 230, 170 DPA: 204, 161 CERTIFIED HYPERBARIC TECHNOLOGIST: 207, 214 1st Toe: 106, 121 ELVIN: 1.27, 1.31 TBI: 0.65, 0.74 The ABIs are borderline elevated suggesting arterial sclerosis The TBI's are mildly low suggesting low risk of ischemia PVR waveforms: Right leg: Thigh: Moderate to [...] ankle: Moderate to severe peripheral arterial disease VEIN/VC SEGMENTAL PRESSURES IMPRESSION: ABIs suggests arterial sclerosis PVR waveform suggests mild to severe bilateral peripheral arterial disease Electronically authenticated by: NIKHIL ANTHONY Date: 01/10/2024 10:57 Dictated By: Nikhil Anthony M.D. Signed By:01/10/24 1100 DD/ 1057 TD/TT: Stuffer: [facility] Georges MUJICA IMG XR PROCEDURES Final Resu lt documented in this encounter Visit Diagnoses Not on filedocumented in this encounter Care Teams Software Design Engineer Relationship Specialty Start Date End Date Vashti Engle MD PCP - General Family Medicine 12/25/22 documented as of this encounter
--- OUTSIDE RECORDS SUMMARY | 2025-04-03 11:01 | XMS_ITS | Encounter Summary ---
Author Organization [facility] Address [id number] [address] [place] [address] Care Team Providers Care Rn On Site Name Role Phone Vashti Engle MD Primary Care Provider [phone] Encounter Details Date Type Department Care Team (Late st Contact Info) Description 01/03/2024 Orders Only [facility] [address] [place] [address] Greer Su MD [address], [facility] [address] [place] [address] Social History Tobacco Use Types Packs/Day Years Used Date Smoking Tobacco: Never Smokeless Tobacco: Never Alcohol Use Standard Drinks/Week Comments Yes 2 (1 standard drink = 0.6 oz pur e alcohol) Hunger Screening Answer Date Recorded Within the past 12 months we worried whether our food would run out before we got money to buy more. Never True 01/03/2024 Within the past 12 months th e food we bought just didn't last and we didn't have money to get more. Never True 01/03/2024 Comments Unknown Sex and Gender Information Value Date Recorded Sex Assigned at Not on file Legal Sex Female 3:23 PM EDT Gender Identity Not on file Sexual Orientation Not on file documented as of this encounter Plan of Treatment Not on file documented as of this encounter Procedures Procedure Name Priority Date/Time Associated Diagnosis Comments VASC ARTERIAL DOPPLER LOWER PVR WITH EXERCISE/PVR Routine 08/13/2023 3:20 PM EST documented in this encounter Results * Vasc art doppler lwr PVR W/exercise (08/13/2023 3:20 PM EST) Anatomical Region Laterality Modality Vascular N/A Ultrasound us Greer Su MD CV VASCULAR ORDERABLES Final Result documented in this encounter Visit Diagnoses Not on filedocumented in this encounter Care Teams Rn On Site Relationship Specialty Start Date End Date Vashti Engle MD [address] [place] [address] PCP - General Family Medicine 11/29/23 documented as of this encounter
--- OUTSIDE RECORDS SUMMARY | 2025-04-03 11:01 | XMS_ITS | Encounter Summary ---
Author Organization [employer] [facility] [employer] Address [id number] [address] [place] [address] Care Team Providers Care Telehealth Director Name Role Phone Vashti Engle MD Primary Care Provider [phone] Encounter Details Date Type Department Care Team (Late st Contact Info) Description 12/03/2023 Orders Only [facility] [place] [address] Transcribe, Orders Support User Pain (Primary Dx) Social History Tobacco Use Types Packs/Day Years Used Date Smoking Tobacco: Never Assessed Comments Unknown Sex and Gender Information Value Date Recorded Sex Assigned at Not on file Legal Sex Female 3:23 PM EDT Gender Identity Not on file Sexual Orientation Not on file documented as of this encounter Plan of Treatment Not on file documented as of this encounter Results * Vas venous duplex lwr single right (08/16/2023 1:05 PM EST) us Scanning Provider External CV VASCULAR ORDERABLE S Final Result MEDSTREAMING documented in this encounter Visit Diagnoses Diagnosis Pain- Primary Generalized pain documented in this encounter Care Teams Telehealth Director Relationship Specialty Start Date End Date Vashti Engle MD [address] [place] [address] PCP - General Family Medicine 11/29/23 documented as of this encounter
--- OUTSIDE RECORDS SUMMARY | 2025-04-03 11:01 | XMS_ITS | Encounter Summary ---
Author Organization [facility] Address [address] [place] [address] Care Team Providers Care Kiln Firer Name Role Phone Vashti Engle MD Primary Care Provider Encounter Details Date Type Department Care Team (Late st Contact Info) Description 05/09/2023 Abstract [facility] [address] [place] [address] Jorge A Joe, DPM FACFAS [address] [facility] [address] Social History Tobacco Use Types Packs/Day Years Used Date Smoking Tobacco: Never Smokeless Tobacco: Never Alcohol Use Standard Drinks/Week Comments Yes 2 (1 standard drink = 0.6 oz pur e alcohol) Comments Unknown Sex and Gender Information Value Date Recorded Sex Assigned at Not on file Legal Sex Female 7:17 PM EDT Gender Identity Not on file Sexual Orientation Not on file COVID-19 Exposure Response Date Recorded In the last 10 days, have yo u been in contact with someone who was confirmed or suspected to have Coronavirus/COVID-19? No / Unsure 05/09/2023 11:15 AM EDT documented as of this encounter Plan of Treatment Not on file documented as of this encounter Visit Diagnoses Not on filedocumented in this encounter Care Teams Kiln Firer Relationship Specialty Start Date End Date Vashti Engle MD PCP - General Family Medicine 12/25/22 documented as of this encounter
--- OUTSIDE RECORDS SUMMARY | 2025-04-03 11:01 | XMS_ITS | Encounter Summary ---
Author Organization [facility] [facility] Address [id number] [address] [place] [address] Care Team Providers Care Payroll And Benefits Specialist Name Role Phone Vashti Engle MD Primary Care Provider [phone] Encounter Details Date Type Department Care Team (Late st Contact Info) Description 01/22/2024 Orders Only [facility] [address] [place] [address] Greer Su MD [address], [facility] [address] [place] [address] Social History Tobacco Use Types Packs/Day Years [...] Name Priority Date/Time Associated Diagnosis Comments VASC VENOUS DUPLEX INSUFFICIENCY LOWER BILATERAL Routine 01/22/2024 1:23 PM EDT documented in this encounter Results * Vas venous duplex insufficiency lwr bi (01/22/2024 1:23 PM EDT) Anatomical Region Laterality Modality Vascular Bilateral Ultrasound us Greer Su MD CV VASCULAR ORDERABLES Final Result documented in this encounter Visit Diagnoses Not on filedocumented in this encounter Care Teams Payroll And Benefits Specialist Relationship Specialty Start Date End Date Vashti Engle MD [address] [place] [address] PCP - General Family Medicine 11/29/23 documented as of this encounter
--- OUTSIDE RECORDS SUMMARY | 2025-04-03 11:01 | XMS_ITS | Clinical Summary ---
Author Organization [employer] Address [id number] [address] [place] [address] Care Team Providers Care Copy Worker Name Role Phone Vashti Engle MD Primary Care Provider [phone] Allergies No known active allergies Medications atorvastatin (LIPITOR) 40 mg tablet Take 1 tablet (40 mg total) by mouth in the morning. Active apixaban (ELIQUIS) 5 mg tablet Take 1 tablet (5 mg total) by mouth in the morning and 1 tablet (5 mg total) before bedtime. Active diclofenac (VOLTAREN) 75 mg EC tablet Take 1 tablet (75 mg total) by mouth daily as needed. 08/29/2023 Active metoprolol succinate XL (TOPROL XL) 100 mg 24 hr tablet Take 1 tablet (100 mg total) by mouth in the morning. 08/29/2023 Active traMADoL (ULTRAM) 50 mg tablet Take 1 tablet (50 mg total) by mouth every 6 (six) hours as needed. 12/26/2023 Active verapamil SR (CALAN-SR) 180 mg CR tablet Take 1 tablet (180 mg total) by mouth in the morning. Active acetaminophen 500 mg capsule Take 1 capsule (500 mg total) by mouth every 6 (six) hours as needed. Active furosemide (LASIX) 40 mg tablet Take 1 tablet (40 mg total) by mouth 2 (two) times a day. Active loperamide (IMODIUM A-D) 2 mg tablet Take 1 tablet (2 mg total) by mouth 4 (four) times a day as needed for diarrhea. Active famotidine (PEPCID) 20 mg tablet Take 1 tablet (20 mg total) by mouth in the morning and 1 tablet (20 mg total) before bedtime. Active potassium chloride (K-TAB,KLOR-CON ) 10 MEQ CR tablet Take 1 tablet (10 mEq total) by mouth in the morning. Active Active Problems Problem Noted Date Diagnosed Date Venous ulcer of left leg 01/03/2024 Assessment & Plan (02/28/2024 9:01 AM EDT): Wound pretty much healed. Discussed with her risk factors modification and follow-up as needed. Assessment & Plan (01/24/2024 9:20 AM EDT): We will reevaluate in a month. If the ulcer healed or healing well we will hold off on any intervention otherwise we will do ultrasound-guided injection sclerotherapy and ablation of the GSV. 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 Discussed with her risk factors modification and follow-up as needed. Assessment & Plan (01/03/2024 10:48 AM EDT): PVR with toe pressure Social History Tobacco Use Types Packs/Day Years Used Date Smoking Tobacco: Never Smokeless Tobacco: Never Tobacco Cessation:Counseling Given: Not Answered Alcohol Use Standard Drinks/Week Comments Yes 2 (1 standard drink = 0.6 oz pur e alcohol) Hunger Screening Answer Date Recorded Within the past 12 months we worried whether our food would run out before we got money to buy more. Never True 02/28/2024 Within the past 12 months th e food we bought just didn't last and we didn't have money to get more. Never True 02/28/2024 Comments Unknown Sex and Gender Information Value Date Recorded Sex Assigned at Not on file Legal Sex Female 3:23 PM EDT Gender Identity Not on file Sexual Orientation Not on file Last Filed Vital Signs Vital Sign Reading Time Taken Comments Blood Pressure 118/82 02/28/2024 8:47 AM EDT Pulse 94 02/28/2024 8:47 AM EDT Temperature - - Respiratory Rate - - Oxygen Saturation 100% 02/28/2024 8:47 AM EDT Inhaled Oxygen Concentration - - Weight 93 kg (205 lb) 02/28/2024 8:47 AM EDT Height 162.6 cm (5' 4 ) 02/28/2024 8:47 AM EDT Body Mass Index 35.19 02/28/2024 8:47 AM EDT Plan of Treatment Health Maintenance Due Date Last Done Comments Depression Screening 1960 DTaP,Tdap and Td Vaccines (1 - Tdap) 1967 Zoster (Shingles) Vaccine (1 of 2) 1998 Fall Risk Screening 2013 Tobacco Screening 02/27/2025 02/28/2024 COVID-19 Vaccine (2024-08 6 season) 2025 08/28/2023, 05/13/2022, 02/03/2022, Additional history exists Influenza Vaccine 03/16/2025 05/29/2023, , 06/02/2021, Additional history exists Medical Devices Not on file Insurance MEDICARE [facility] Care Teams Copy Worker Relationship Specialty Start Date End Date Vashti Engle MD [address] [place] [address] PCP - General Family Medicine 11/29/23
--- OUTSIDE RECORDS SUMMARY | 2025-04-03 11:03 | XMS_ITS | CCD ---
Author Organization [facility] CliniSyal Care Team Providers Care Conveyor Man Name Role Phone Wayne Mccallum Unavailable Jose [...] Unavailable MD Katelynn Clark Primary Care Provider [phone] MD Willy Yancey Attending Provider [phone] Katelynn Clark MD Primary Care Provider NON STAFF Attending Provider Unavailable Unavailable Primary Care Provider UnavailVICKYE Kellogg Referring Unavailable VICKEY MATA Attending Unavailable [...] Unavailable Katelynn Clark MD Primary Care Provider [phone] Katelynn Clark MD Attending Provider Allergies Allergy Classification Reported Allergen(s) Allergy Type Date of Onset Reaction(s) Facility (6 sources) patient allergy list reviewed by nurse or physicia Propensity to adverse reactions 5 Comment:Done [email or web address] Other (6 sources) Allergies Reconciled Propensity to adverse reactions Unknown [email or web address] Other Medications Current Medications Medication Drug Class(es) [...] 31, 2021 2:03pm take 1 capsule by [facility] every six hours as needed acetaminophen 500 [...] Start: 10-06-2021 take 1 capsule by mo [facility] every twelve hours Cefadroxil 500 MG 1 [...] 24 Sep, 2021 Active polyethylene glycol 3350 43775 mg powder for oral solution (12 sources) [...] lower limb ischemia ; Translations: [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, left leg] [...] Range Facility Office Visiton 02-19-2025 Follow-up visit [id number] Kami Fink 1950 F Date Provider Department Center 02/19/2025 VICKEY POLLARD [facility] Family History Problem Relation Age of Onset Heart attack Mother Heart failure Father Coronary artery disease Sister Family Status - Relation Status Age at Mother Father Sister Level of Service:[address]607 [place] OFFICE/OUTPATIENT ESTABLISHED MOD MDM 30 MIN Reason for Visit and Comments: 2 month follow up [Other] Atrial Fibrillation [80] Hypertension [688686] Hyperlipidemia [182] Recent Echo [Other] Holter monitor [Other] MULLIGAN with being out in the heat [Other] [facility] 36on 12-12-2024 36 Vickey Mata MD Physician Signed 11/28/2024 Copy I reviewed with the patient 3 days Holter monitor and it shows A-fib all the time and her ventricular rate is mostly controlled, continue current management. Please inform the patient LVM to inform patient of Dr. Mata's findings and recommendation. [facility] XR KNEE LEFT (3 VIEWS)on XR KNEE [...] Jada Lopez MD 12/05/[address] [facility] Comment on above: Order Comment: Post op left 3V AP, LAT, Patella 36on 11-28-2024 36 I reviewed with the patient 3 days Holter monitor and it shows A-fib all the time and her ventricular rate is mostly controlled, continue current management. Please inform the patient Normal [facility] .eGFRon 11-26-2024 GFR/1.73 sq M.predicted MDRD (S/P/Bld) [Vol rate/Area] mL/min/{1.73_m2} Normal >=[address] [facility] Comment on above: Result Comment: [facility] Laboratories have implemented the eGFR calculation [...] = years Performed By: #### E GFR ####[address] [address] Basic Metabolic Profileon Anion gap [Moles/Vol] 6 mmol/L Normal 4-12 [facility] Comment on above: Performed By: #### H GBHCT #### [address] [address] BUN Crea Ratio 16.9 ratio Normal 15.0-25.0 [facility] Comment on above: Performed By: #### H GBHCT #### [address] [address] Calcium [Mass/Vol] 8.5 mg/dL Low 8.6-10.3 [facility] Comment on above: Performed By: #### H GBHCT #### [address] [address] Chloride [Moles/Vol] 104 mmol/L Normal 98-107 [facility] Comment on above: Performed By: #### H GBHCT #### [address] [address] CO2 [Moles/Vol] 27 mmol/L Normal 21-31 [facility] Comment on above: Performed By: #### H GBHCT #### [address] [address] Creatinine [Mass/Vol] 0.89 mg/dL Normal 0.60-1.20 [facility] Comment on above: Performed By: #### H GBHCT #### [address] [address] Glucose [Mass/Vol] 108 mg/dL High 70-99 [facility] Comment on above: Performed By: #### H GBHCT #### [address] [address] Potassium [Moles/Vol] 4.1 mmol/L Normal 3.4-4.8 [facility] Comment on above: Performed By: #### H GBHCT #### [facility] [address] [place] [address] Sodium [Moles/Vol] 137 mmol/L Normal 136-145 [facility] Comment on above: Performed By: #### H GBHCT #### [facility] [address] [place] [address] Urea nitrogen [Mass/Vol] 15 mg/dL Normal 7-25 [facility] Comment on above: Performed By: #### H GBHCT #### [facility] [address] [place] [address] Cardiology Progress Noteon 0 11-26-2024 Cardiology Progress [...] diastolic function, mild LAE, mild MR, mild [place] ([facility]) Objective Vitals & Measurements T: 36.5 ?C [...] prophylaxis - Follow up with Dr. Barney, [facility] electrical electronics engineer, after discharge 2. Hypertension - Continue verapamil [...] Roberto Riojas DO 11/26/24 06:44 EDT Normal [facility] Hgb & Hcton 11-26-2024 Hematocrit (Bld) [Volume fraction] 30.6 % Low 36.0-46.0 [facility] Comment on above: Performed By: #### H GBHCT #### [address] [address] Hemoglobin (Bld) [Mass/Vol] 10.2 g/dL Low 12.0-16.0 [facility] Comment on above: Performed By: #### H GBHCT #### [address] [address] Inpatient Clinical Summaryon 11-26-2024 Inpatient Clinical Summary [address] [address] [phone] [address] [phone] Clinical Summary Person Information Name: Kami Fink Age: 74 Years : 1950 Sex: Female PCP: Katelynn Clark MD Marital Status: Phone: PCP: Race: White Ethnicity: Not or Language: Greenlandic Visit Id: Visit Reason: Surgery Speciality: Acuity: Enc Type: Inpatient Med Service: Orthopedics Arrival: 11/21/2024 13:18:45 Discharge: Dispo Type: Address: [address] [place] [id number] Preferred Communication Mode: Verbal Preferred Language: Greenlandic Discharge Diagnosis: Atrial fibrillation, persistent; Current use [...] FREQUENCY ABLATI (more content not included)... Normal [facility] Orthopedic Progress Noteon 0 11-26-2024 Orthopedic Progress [...] dressing. Ortho stable for transfer back to [facility] once cleared by medicine Anticipate DC to [facility] when arranged and medically stable Outpatient follow-up in 2 weeks Orders: oxyCODONE, 5 mg, Oral, Tab, q4hr, PRN moderate pain [4-6 on pain scale], First Dose: 11/21/24 18:04:00 EDT, Dispense From Location: [facility], 11/21/24 18:04:00 EDT oxyCODONE, 10 mg, Oral, Tab, q4hr, PRN severe pain [7-10 on pain scale], First Dose: 11/21/24 18:04:00 EDT, Dispense From Location: [facility], 11/21/24 18:04:00 EDT verapamil, 180 mg, Oral, Tab-ER, Daily, First Dose: 11/22/24 9:00:00 EDT, Dispense From Location: [facility], 11/21/24 18:06:00 EDT Electronically signed by Bella Yarbrough PA-C 11/26/24 07:17 EDT Patient care discussed with Bella Yarbrough PA-C. Agree with assessment and plan. Electronically signed by Luis Alberto Perez MD 11/27/24 13:55 EDT [facility] Progress Note-Nurseon 2024 Progress Note-Nurse [facility] All questions answered. Electronically signed by Dalila Adams 11/26/24 14:50 EDT [facility] .eGFRon 11-25-2024 GFR/1.73 sq M.predicted MDRD (S/P/Bld) [Vol rate/Area] mL/min/{1.73_m2} Normal >=[address] [facility] Comment on above: Result Comment: [facility] Laboratories have implemented the eGFR calculation [...] years Performed By: #### H GBHCT #### [facility] [address] [place] [address] Basic Metabolic Profileon BUN Crea Ratio 15.6 ratio Normal 10.0-20.0 [facility] Comment on above: Performed By: #### H GBHCT #### [address] [address] [place] [address] Creatinine [Mass/Vol] 0.96 mg/dL Normal 0.44-1.03 [facility] Comment on above: Performed By: #### H GBHCT #### [address] [address] [place] [address] Urea nitrogen [Mass/Vol] 15 mg/dL Normal 8-26 [facility] Comment on above: Performed By: #### H GBHCT #### [address] [address] Anion gap [Moles/Vol] 5 mmol/L Normal 4-12 [facility] Comment on above: Performed By: #### H GBHCT #### [address] [address] Calcium [Mass/Vol] 8.8 mg/dL Normal 8.6-10.3 [facility] Comment on above: Performed By: #### H GBHCT #### [address] [address] Chloride [Moles/Vol] 105 mmol/L Normal 98-110 [facility] Comment on above: Performed By: #### H GBHCT #### [address] [address] CO2 [Moles/Vol] 26 mmol/L Normal 22-32 [facility] Comment on above: Performed By: #### H GBHCT #### [address] [address] Glucose [Mass/Vol] 109 mg/dL High 70-99 [facility] Comment on above: Performed By: #### H GBHCT #### [address] [address] Potassium [Moles/Vol] 4.1 mmol/L Normal 3.4-4.8 [facility] Comment on above: Performed By: #### H GBHCT #### [address] [address] Sodium [Moles/Vol] 136 mmol/L Normal 133-142 [facility] Comment on above: Performed By: #### H GBHCT #### [address] [address] Hgb & Hcton 11-25-2024 Hematocrit (Bld) [Volume fraction] 32.8 % Low 36.0-46.0 [facility] Comment on above: Performed By: #### H GBHCT #### [address] [address] Hemoglobin (Bld) [Mass/Vol] 10.9 g/dL Low 12.0-16.0 [facility] Comment on above: Performed By: #### H [facility] #### [facility] [address] [place] [address] Orthopedic Progress Noteon 0 11-25-2024 Orthopedic Progress [...] Alberto Perez MD 11/25/24 20:16 EDT Normal [facility] Progress Note-Nurseon 2024 Progress Note-Nurse This nurse entered the room at 0610 patient resting heart rate 127, blood pressure 164/70, this nurse auscultated heart irregular rate and rhythm. This nurse messaged hospitalist, ordered EKG. EKG came back with Afib with RVR. Transfer to ICU ordered. This nurse gave report to PERSONNEL [employer]ERKS SUPERVISOR Cosme Maradiaga. Electronically signed by Dakota Reagan 11/25/24 09:20 EDT Normal [facility] .eGFRon 11-24-2024 GFR/1.73 sq M.predicted MDRD (S/P/Bld) [Vol rate/Area] mL/min/{1.73_m2} Normal >=[address] [facility] Comment on above: Result Comment: [facility] Laboratories have implemented the eGFR calculation [...] = years Performed By: #### E GFR ####[address] [address] Basic Metabolic Profileon Anion gap [Moles/Vol] 8 mmol/L Normal 10-25 [facility] Comment on above: Performed By: #### C [id number] ####[address] [address] BUN Crea Ratio 19.5 ratio Normal 10.0-20.0 [facility] Comment on above: Performed By: #### C [id number] ####[address] [address] Calcium [Mass/Vol] 8.6 mg/dL Normal 8.6-10.3 [facility] Comment on above: Performed By: #### C [id number] ####[address] [address] Chloride [Moles/Vol] 102 mmol/L Normal 98-110 [facility] Comment on above: Performed By: #### C [id number] ####[address] [address] CO2 [Moles/Vol] 25 mmol/L Normal 22-32 [facility] Comment on above: Performed By: #### C D:[id number] ####[address] [address] Creatinine [Mass/Vol] 0.87 mg/dL Normal 0.44-1.03 [facility] Comment on above: Performed By: #### C [id number] ####[address] [address] Glucose [Mass/Vol] 101 mg/dL High 70-99 [facility] Comment on above: Performed By: #### C [id number] ####[address] [address] Potassium [Moles/Vol] 4.2 mmol/L Normal 3.4-4.8 [facility] Comment on above: Performed By: #### C D:[id number] ####[address] [address] Sodium [Moles/Vol] 135 mmol/L Normal 133-142 [facility] Comment on above: Performed By: #### C [id number] ####[address] [address] Urea nitrogen [Mass/Vol] 17 mg/dL Normal 8-26 [facility] Comment on above: Performed By: #### C [id number] ####[address] [address] Hgb & Hcton 11-24-2024 Hematocrit (Bld) [Volume fraction] 31.9 % Low 36.0-46.0 [facility] Comment on above: Performed By: #### H GBHCT ####[address] [place] [address] Hemoglobin (Bld) [Mass/Vol] 10.7 g/dL Low 12.0-16.0 [facility] Comment on above: Performed By: #### H GBHCT ####[address] [place] [address] Orthopedic Progress Noteon 0 11-24-2024 Orthopedic Progress [...] Alberto Perez MD 11/24/24 07:29 EDT Normal [facility] .eGFRon 11-23-2024 GFR/1.73 sq M.predicted MDRD (S/P/Bld) [Vol rate/Area] mL/min/{1.73_m2} Normal >=[address] [facility] Comment on above: Result Comment: [facility] Laboratories have implemented the eGFR calculation [...] years Performed By: #### H GBHCT #### [facility] [address] [place] [address] Basic Metabolic Profileon Anion gap [Moles/Vol] 5 mmol/L Normal 4-12 [facility] Comment on above: Order Comment: taina tomlinson 2 times 11/23/2024 05:40:48 EDT ss Performed By: #### C [id number] ####[facility] [place] [address] BUN Crea Ratio 24.1 ratio High 10.0-20.0 [facility] Comment on above: Order Comment: taina tomlinson 2 times 11/23/2024 05:40:48 EDT ss Performed By: #### C [id number] ####[address] [address] Calcium [Mass/Vol] 8.7 mg/dL Normal 8.6-10.3 [facility] Comment on above: Order Comment: taina tomlinson 2 times 11/23/2024 05:40:48 EDT ss Performed By: #### C D:[id number] ####[address] [address] Chloride [Moles/Vol] 105 mmol/L Normal 98-110 [facility] Comment on above: Order Comment: taina tomlinson 2 times 11/23/2024 05:40:48 EDT ss Performed By: #### C [id number] ####[address] [address] CO2 [Moles/Vol] 25 mmol/L Normal 22-32 [facility] Comment on above: Order Comment: taina tomlinson 2 times 11/23/2024 05:40:48 EDT ss Performed By: #### C [id number] ####[address] [address] Creatinine [Mass/Vol] 0.83 mg/dL Normal 0.44-1.03 [facility] Comment on above: Order Comment: taina tomlinson 2 times 11/23/2024 05:40:48 EDT ss Performed By: #### C D:[id number] ####[address] [address] Glucose [Mass/Vol] 100 mg/dL High 70-99 [facility] Comment on above: Order Comment: taina tomlinson 2 times 11/23/2024 05:40:48 EDT ss Performed By: #### C [id number] ####[address] [address] Potassium [Moles/Vol] 4.2 mmol/L Normal 3.4-4.8 [facility] Comment on above: Order Comment: taina tomlinson 2 times 11/23/2024 05:40:48 EDT ss Performed By: #### C D:[id number] ####[address] [address] Sodium [Moles/Vol] 135 mmol/L Normal 133-142 [facility] Comment on above: Order Comment: taina tomlinson 2 times 11/23/2024 05:40:48 EDT ss Performed By: #### C D:[id number] ####[address] [address] Urea nitrogen [Mass/Vol] 20 mg/dL Normal 8-26 [facility] Comment on above: Order Comment: taina tomlinson 2 times 11/23/2024 05:40:48 EDT ss Performed By: #### C D:[id number] ####[address] [address] Hgb & Hcton 11-23-2024 Hematocrit (Bld) [Volume fraction] 35.4 % Low 36.0-46.0 [facility] Comment on above: Performed By: #### H GBHCT ####[address] [address] Hemoglobin (Bld) [Mass/Vol] 11.5 g/dL Low 12.0-16.0 [facility] Comment on above: Performed By: #### H GBHCT ####[address] [address] Orthopedic Progress Noteon 0 11-23-2024 Orthopedic Progress [...] Alberto Perez MD 11/23/24 13:46 EDT Normal [facility] .eGFRon 11-22-2024 Estimated GFR 55 mL/min/1.73m? Low >=[address] [facility] Comment on above: Result Comment: [facility] Laboratories have implemented the eGFR calculation [...] years Performed By: #### H GBHCT #### [address] [address] Basic Metabolic Profileon Anion gap [Moles/Vol] 7 mmol/L Normal 4-12 [facility] Comment on above: Performed By: #### H GBHCT #### [address] [place] [address] BUN Crea Ratio 20.0 ratio Normal 10.0-20.0 [facility] Comment on above: Performed By: #### H GBHCT #### [address] [address] Calcium [Mass/Vol] 8.8 mg/dL Normal 8.6-10.3 [facility] Comment on above: Performed By: #### H GBHCT #### [address] [address] Chloride [Moles/Vol] 106 mmol/L Normal 98-110 [facility] Comment on above: Performed By: #### H GBHCT #### [address] [address] CO2 [Moles/Vol] 24 mmol/L Normal 22-32 [facility] Comment on above: Performed By: #### H GBHCT #### [address] [address] Creatinine [Mass/Vol] 1.05 mg/dL High 0.44-1.03 [facility] Comment on above: Performed By: #### H GBHCT #### [address] [address] Glucose [Mass/Vol] 160 mg/dL High 70-99 [facility] Comment on above: Performed By: #### H GBHCT #### [address] [address] Potassium [Moles/Vol] 4.3 mmol/L Normal 3.4-4.8 [facility] Comment on above: Performed By: #### H GBHCT #### [address] [address] Sodium [Moles/Vol] 137 mmol/L Normal 133-142 [facility] Comment on above: Performed By: #### H GBHCT #### [address] [address] Urea nitrogen [Mass/Vol] 21 mg/dL Normal 8-26 [facility] Comment on above: Performed By: #### H GBHCT #### [facility] [address] [place] [address] Hgb & Hcton 11-22-2024 Hematocrit (Bld) [Volume fraction] 35.5 % Low 36.0-46.0 [facility] Comment on above: Performed By: #### H GBHCT #### [facility] [address] [place] [address] Hemoglobin (Bld) [Mass/Vol] 12.1 g/dL Normal 12.0-16.0 [facility] Comment on above: Performed By: #### H GBHCT #### [address] [place] [address] Orthopedic Progress Noteon 0 11-22-2024 Orthopedic Progress [...] Alberto Perez MD 11/22/24 16:05 EDT Normal [facility] Consultation Note - Generico n 11-21-2024 Consultation [...] q6hr, PRN (more content not included)... Normal [facility] XR Knee 1 or 2 Views Lefton [...] Signed, Electronically Signed in Other Vendor System) [facility] 36on 11-19-2024 36 Regarding echo result from [...] cleared for surgery from cardiac standpoint. Normal [facility] Cardiac echo study Procedure Ordered By: Vero Delgado on 11-18-2024 Aortic Sinus Valsalva 3.1 cm [employer] Work Phone: Aortic Sinus Valsalva Index 1.59 cm/m2 [employer] Phone: AV Cusp Mmode 2 cm [employer] Phone: AV Mean Gradient 2 mmHg [employer] Work Phone: AV Mean Velocity 0.7 m/s [employer] Work Phone: AV Peak Gradient 4 mmHg [employer] Work Phone: AV Peak Velocity 1 m/s [employer] Phone: AV Velocity Ratio 0.6 [employer] Phone: AV VTI 18.5 cm [employer] Work Phone: Body surface area Derived from formula 2.02 m2 [employer] Work Phone: E/E' Lateral 9.75 [employer] Phone: EF BP 55 % 55 - 100 % [employer] Work Phone: EF Physician 55 % [employer] Work Phone: Est. RA Pressure 3 mmHg [facility] Phone: Fractional Shortening 2D 20 % 28 - 44 % [employer] Work Phone: Interpretation and review of laboratory results Abnormal [employer] Phone: IVSd 1.1 cm Abnormal 0.6 - 0.9 cm [employer] Phone: LA Area 2C 24.4 cm2 [employer] Work Phone: LA Area 4C 23.9 cm2 [employer] Work Phone: LA Major [place] 6.2 cm [employer] Phone: LA Minor [place] 6.4 cm [employer] Work Phone: LA Volume BP 78 mL Abnormal 22 - 52 mL [employer] Work Phone: LA Volume Index BP 40 ml/m2 Abnormal 16 - 34 ml/m2 [employer] Work Phone: LA Volume Index MOD A2C 40 ml/m2 Abnormal 16 - 34 ml/m2 [employer] Work Phone: LA Volume Index MOD A4C 39 ml/m2 Abnormal 16 - 34 ml/m2 [employer] Work Phone: LA Volume MOD A2C 78 mL Abnormal 22 - 52 mL [employer] Phone: LA Volume MOD A4C 77 mL Abnormal 22 - 52 mL [employer] Phone: LV E' Lateral Velocity 12.1 cm/s [employer] Work Phone: LV EDV A2C 56 mL [employer] Work Phone: LV EDV A4C 55 mL [employer] Work Phone: LV EDV Index A2C 29 mL/m2 [employer] Work Phone: LV EDV Index A4C 28 mL/m2 [employer] Work Phone: LV Ejection Fraction A2C 55 % [employer] Work Phone: LV Ejection Fraction A4C 52 % [employer] Work Phone: LV ESV A2C 25 mL [employer] Work Phone: LV ESV A4C 27 mL [employer] Work Phone: LV ESV Index A2C 13 mL/m2 [employer] Work Phone: LV ESV Index A4C 14 mL/m2 [employer] Work Phone: LV Mass 2D 164 g Abnormal 67 - 162 g Bon [employer] Work Phone: LV Mass 2D Index 84.1 g/m2 43 - 95 g/m2 [employer] Work Phone: LV RWT Ratio 0.44 [employer] Phone: LVIDd 4.5 cm 3.9 - 5.3 cm [employer] Work Phone: LVIDd Index 2.31 cm/m2 [employer] Phone: LVIDs 3.6 cm [employer] Phone: LVIDs Index 1.85 cm/m2 [employer] Phone: LVOT Mean Gradient 1 mmHg [employer] Phone: LVOT Peak Gradient 2 mmHg [employer] Phone: LVOT Peak Velocity 0.6 m/s Bon Se [employer] Phone: LVOT VTI 13.7 cm [employer] Phone: LVOT:AV VTI Index 0.74 [employer] Phone: LVPWd 1 cm Abnormal 0.6 - 0.9 cm [employer] Phone: MV E Velocity 1.18 m/s [employer] Phone: MV E Wave Deceleration Time 197 ms [employer] Phone: PV Max Velocity 0.8 m/s [facility] [employer] Phone: PV Peak Gradient 3 mmHg [facility] [facility] [employer] Phone: RV Basal Dimension 3 cm Bon [employer] Phone: TAPSE 1.7 cm 1.7 cm Bon [employer] Work Phone: [facility] Work Phone: Cardiac echo study Procedure on [...] Image quality: adequate. No contrast was given. [facility] CV CPACS Radiology Study observation (narrative) [facility] [employer] Office Visiton 11-14-2024 Follow-up visit [id number] Kami Fink 1950 F Date Provider Department Center 11/14/2024 [id number] Family History Problem Relation Age of Onset Heart attack Mother Heart failure Father Coronary artery disease Sister Family Status - Relation Status Age at Mother Father Sister Level of Service:[address] [place] OFFICE/OUTPATIENT NEW MODERATE MDM 45 MINUTES Reason for Visit and Comments: Atrial Fibrillation [80] New Patient [632] pre op clearance [Other] - Normal [facility] Urine Cultureon 11-06-2024 Bacteria identified Cx Nom (U) ORDERING PHYSICIAN LUIS ALBERTO PEREZ Urine Culture Results No Growth 2 Days PERFORMED BY: [place] [address] PATHOLOGIST PAINT ROLLER WINDER GREER MCKENZIE M.D. Normal [facility] Comment on above: Performed By: #### C UU #### [facility] [address] XR knee RT 2Von 11-02-2022 XR knee RT 2V [facility] [employer] Other XR knee RT 2V [facility] [employer] Other XR knee RT 2V 1111 [facility] [employer] Other XR knee RT 2V [address] [employer] Other XR knee RT 2V XRay Report [employer] Other XR knee RT 2V Signed [email or web address] Other XR knee RT 2V Patient: Kami Fink MR#: [id number] [place] [employer] Other XR knee RT 2V 31 [email or web address] Other XR knee RT 2V : 1950 Acct:[id number] [email or web address] Other XR knee RT 2V Age/Sex: 72 / F ADM Date: 11/02/22 [email or web address] Other XR knee RT 2V Loc: [facility] Room: Type: [facility] [email or web address] Other XR knee RT 2V Attending Dr: Jose Najera II, MD [email or web address] Other XR knee RT 2V Copies to: Jose Najera MD [email or web address] Other XR knee RT 2V Ordering Provider: Jose Najera MD [email or web address] Other XR knee RT 2V Date of Service: 11/02/22 [email or web address] Other XR knee RT 2V XR/XR knee RT 2V: History of total right knee replacement [email or web address] Other XR knee RT 2V RIGHT KNEE - 2 views N [employer] Other XR knee RT 2V CLINICAL HISTORY: Follow-up right TKA [email or web address] Other XR knee RT 2V COMPARISON: Right knee 01/18/2022 [email or web address] Other XR knee RT 2V FINDINGS: [email or web address] Other XR knee RT 2V No evidence of hardware complication or acute bony process. [email or web address] Other XR knee RT 2V XR/XR knee RT 2V [email or web address] Other XR knee RT 2V IMPRESSION: [employer] Other XR knee RT 2V NO EVIDENCE OF HARDWARE COMPLICATION. [email or web address] Other XR knee RT 2V Impression dictated by: Audie Mondragon Jr., D.OEdgard11/02/2022 3:18 PM [email or web address] Other XR knee RT 2V Dictation Location: [place] [address] [email or web address] Other XR knee RT 2V Transcribed By: PWS 11/02/22 [facility] [email or web address] Other XR knee RT 2V Dictated By: Audie Mondragon Jr, DO 11/02/22 [facility] [email or web address] Other XR knee RT 2V Signed By: [email or web address] Other XR knee RT 2V 11/02/22 [facility] [employer] Other Vital Signs Date Time Vital Sign Value Performing Clinician Facility 03-09-2025 13:35-0400 Body height 161.29 cm Katelynn Clark MD Work Phone: [facility] 03-09-2025 13:35-0400 Body mass index (BMI) [Ratio] 34.5 kg/m2 Katelynn Clark MD Work Phone: [facility] 03-09-2025 13:35-0400 Body weight 89.81 kg Katelynn Clark MD Work Phone: [facility] 03-09-2025 13:35-0400 Diastolic blood pressure 79 mm[Hg] Katelynn Clark MD Work Phone: [facility] 03-09-2025 13:35-0400 Heart rate 78 /min Katelynn Clark MD Work Phone: [facility] 03-09-2025 13:35-0400 Respiratory rate 14 /min Katelynn Clark MD Work Phone: [facility] 03-09-2025 13:35-0400 SaO2% (BldA) [Mass fraction] 97 % Katelynn Clark MD Work Phone: [facility] 03-09-2025 13:35-0400 Systolic blood pressure 124 mm[Hg] Katelynn Clark MD Work Phone: [facility] 12-30-2024 13:49-0400 Body height 161.29 cm Katelynn Clark MD Work Phone: [facility] 12-30-2024 13:49-0400 Body mass index (BMI) [Ratio] 34.9 kg/m2 Katelynn Clark MD Work Phone: [facility] 12-30-2024 13:49-0400 Body weight 90.71 kg Katelynn Clark MD Work Phone: [facility] 12-30-2024 13:49-0400 Diastolic blood pressure 69 mm[Hg] Katelynn Clark MD Work Phone: [facility] 12-30-2024 13:49-0400 Heart rate 76 /min Katelynn Clark MD Work Phone: [facility] 12-30-2024 13:49-0400 Systolic blood pressure 117 mm[Hg] Katelynn Clark MD Work Phone: [facility] 11-18-2024 11:01-0400 Body height 162.5 cm Vickey Mata MD Work Phone: [facility] 11-18-2024 11:01-0400 Body mass index (BMI) [Ratio] 34.18 kg/m2 Vickey Mata MD Work Phone: [facility] 11-18-2024 11:01-0400 Body weight 90.27 kg Vickey Mata MD Work Phone: [facility] 11-03-2024 13:02-0400 Body height 161.29 cm [facility] 11-03-2024 13:02-0400 Body mass index (BMI) [Ratio] 34.7 kg/m2 [facility] 11-03-2024 13:02-0400 Body weight 90.26 kg [facility] 11-03-2024 13:02-0400 Diastolic blood pressure 80 mm[Hg] [facility] 11-03-2024 13:02-0400 Heart rate 88 /min [facility] 11-03-2024 13:02-0400 Systolic blood pressure 147 mm[Hg] [facility] 05-30-2024 10:57-0500 Body height 161.29 cm [facility] 05-30-2024 10:57-0500 Body mass index (BMI) [Ratio] 35 kg/m2 [facility] 05-30-2024 10:57-0500 Body weight 91.17 kg [facility] 05-30-2024 10:57-0500 Diastolic blood pressure 76 mm[Hg] [facility] 05-30-2024 10:57-0500 Heart rate 66 /min [facility] 05-30-2024 10:57-0500 Systolic blood pressure 116 mm[Hg] [facility] 02-28-2024 08:47-0400 Body height 162.6 cm Greer Su MD Work Phone: [facility] 02-28-2024 08:47-0400 Body mass index (BMI) [Ratio] 35.19 kg/m2 Greer Su MD Work Phone: [facility] 02-28-2024 08:47-0400 Body weight 92.99 kg Greer Su MD Work Phone: [facility] 02-28-2024 08:47-0400 Diastolic blood pressure 82 mm[Hg] Greer Su MD Work Phone: [facility] 02-28-2024 08:47-0400 Heart rate 94 /min Greer Su MD Work Phone: [facility] 02-28-2024 08:47-0400 SaO2% (BldA) [Mass fraction] 100 % Greer Su MD Work Phone: [facility] 02-28-2024 08:47-0400 Systolic blood pressure 118 mm[Hg] Greer Su MD Work Phone: [facility] 01-24-2024 08:52-0400 Body height 162.6 cm Greer Su MD Work Phone: [facility] 01-24-2024 08:52-0400 Body mass index (BMI) [Ratio] 34.84 kg/m2 Greer Su MD Work Phone: [facility] 01-24-2024 08:52-0400 Body weight 92.08 kg Greer Su MD Work Phone: [facility] 01-24-2024 08:52-0400 Diastolic blood pressure 91 mm[Hg] Greer Su MD Work Phone: [facility] 01-24-2024 08:52-0400 Heart rate 116 /min Greer Su MD Work Phone: [facility] 01-24-2024 08:52-0400 SaO2% (BldA) [Mass fraction] 99 % Greer Su MD Work Phone: [facility] 01-24-2024 08:52-0400 Systolic blood pressure 157 mm[Hg] Greer Su MD Work Phone: [facility] 01-03-2024 10:35-0400 Diastolic blood pressure 87 mm[Hg] Greer Su MD Work Phone: [facility] 01-03-2024 10:35-0400 SaO2% (BldA) [Mass fraction] 98 % Greer Su MD Work Phone: [facility] 01-03-2024 10:35-0400 Systolic blood pressure 145 mm[Hg] Greer Su MD Work Phone: [facility] 01-03-2024 10:33-0400 Body height 162.6 cm Greer Su MD Work Phone: [facility] 01-03-2024 10:33-0400 Body mass index (BMI) [Ratio] 34.84 kg/m2 Greer Su MD Work Phone: [facility] 01-03-2024 10:33-0400 Body weight 92.08 kg Greer Su MD Work Phone: [facility] 01-03-2024 10:33-0400 Heart rate 116 /min Greer Su MD Work Phone: [facility] 12-13-2023 14:51-0400 Body height 161.29 cm [facility] 12-13-2023 14:51-0400 Body mass index (BMI) [Ratio] 35.4 kg/m2 [facility] 12-13-2023 14:51-0400 Body weight 92.07 kg [facility] 10-15-2023 11:18-0400 Body height 161.29 cm MD Katelynn Clark Work Phone: [facility] 10-15-2023 11:18-0400 Body mass index (BMI) [Ratio] 36.6 kg/m2 MD Katelynn Clark Work Phone: [facility] 10-15-2023 11:18-0400 Body weight 95.36 kg MD Katelynn Clark Work Phone: [facility] 10-15-2023 11:18-0400 Diastolic blood pressure 81 mm[Hg] MD Katelynn Clark Work Phone: [facility] 10-15-2023 11:18-0400 Heart rate 77 /min MD Katelynn Clark Work Phone: [facility] 10-15-2023 11:18-0400 Systolic blood pressure 142 mm[Hg] MD Katelynn Clark Work Phone: [facility] 09-13-2023 11:54-0500 Body height 161.29 cm MD Katelynn Clark Work Phone: [facility] 09-13-2023 11:54-0500 Body mass index (BMI) [Ratio] 37.8 kg/m2 MD Katelynn Clark Work Phone: [facility] 09-13-2023 11:54-0500 Body temperature 97.6 [degF] MD Katelynn Clark Work Phone: [facility] 09-13-2023 11:54-0500 Body weight 98.42 kg MD Katelynn Clark Work Phone: [facility] 09-13-2023 11:54-0500 Diastolic blood pressure 82 mm[Hg] MD Katelynn Clark Work Phone: [facility] 09-13-2023 11:54-0500 Heart rate 89 /min MD Katelynn Clark Work Phone: [facility] 09-13-2023 11:54-0500 Respiratory rate 16 /min MD Katelynn Clark Work Phone: [facility] 09-13-2023 11:54-0500 SaO2% (BldA) [Mass fraction] 99 % MD Katelynn Clark Work Phone: [facility] 09-13-2023 11:54-0500 Systolic blood pressure 124 mm[Hg] MD Katelynn Clark Work Phone: [facility] 08-30-2023 10:41-0500 Body height 161.29 cm [facility] 08-30-2023 10:41-0500 Body mass index (BMI) [Ratio] 37.8 kg/m2 [facility] 08-30-2023 10:41-0500 Body weight 98.42 kg [facility] 08-30-2023 10:41-0500 Diastolic blood pressure 81 mm[Hg] [facility] 08-30-2023 10:41-0500 Heart rate 87 /min [facility] 08-30-2023 10:41-0500 Systolic blood pressure 155 mm[Hg] [facility] 08-23-2023 09:20-0500 Body height 161.29 cm Ny Jin Other [facility] [employer] Other 08-23-2023 09:20-0500 Body mass index (BMI) [Ratio] 37.48 kg/m2 Ny Jin Other [facility] [employer] Other 08-23-2023 09:20-0500 Body weight 97.52 kg Ny Jin Other [email or web address] Other 08-16-2023 10:00-0500 Body height 161.29 cm Katelynn Clark Other [facility] 08-16-2023 10:00-0500 Body mass index (BMI) [Ratio] 37.83 kg/m2 Katelynn Clark Other [email or web address] Other 08-16-2023 10:00-0500 Body weight 98.43 kg Katelynn Clark Other [email or web address] Other 08-16-2023 10:00-0500 Body weight 98.42 kg [facility] 08-16-2023 10:00-0500 Diastolic blood pressure 81 mm[Hg] Katelynn lCark Other [facility] 08-16-2023 10:00-0500 Systolic blood pressure 147 mm[Hg] Katelynn Clark Other [facility] 05-29-2023 11:30-0500 Body height 161.29 cm Katelynn Clark Other [facility] [employer] Other 05-29-2023 11:30-0500 Body mass index (BMI) [Ratio] 37.41 kg/m2 Katelynn Clark Other [email or web address] Other 05-29-2023 11:30-0500 Body weight 97.34 kg Katelynn Clark Other [email or web address] Other 05-29-2023 11:30-0500 Diastolic blood pressure 85 mm[Hg] Katelynn Clark Other [email or web address] Other 05-29-2023 11:30-0500 Respiratory rate 16 /min Katelynn Clark Other [email or web address] Other 05-29-2023 11:30-0500 Systolic blood pressure 174 mm[Hg] Katelynn Clark Other [email or web address] Other 03-15-2023 08:45-0400 Body height 161.29 cm Jose South English II Other [email or web address] Other 03-15-2023 08:45-0400 Body mass index (BMI) [Ratio] 38.01 kg/m2 Jose South English II Other [email or web address] Other 03-15-2023 08:45-0400 Body weight 98.88 kg Jose South English II Other [email or web address] Other 01-18-2023 11:15-0400 Body height 161.29 cm Katelynn Clark Other [email or web address] Other 01-18-2023 11:15-0400 Body mass index (BMI) [Ratio] 38.01 kg/m2 Katelynn Clark Other [email or web address] Other 01-18-2023 11:15-0400 Body weight 98.88 kg Katelynn Clark Other [email or web address] Other 01-18-2023 11:15-0400 Diastolic blood pressure 81 mm[Hg] Katelynn Clark Other [email or web address] Other 01-18-2023 11:15-0400 Systolic blood pressure 167 mm[Hg] Katelynn Clark Other [email or web address] Other 12-12-2022 13:45-0400 Body height 161.29 cm Katelynn Clark Other [email or web address] Other 12-12-2022 13:45-0400 Body mass index (BMI) [Ratio] 37.48 kg/m2 Katelynn Clark Other [email or web address] Other 12-12-2022 13:45-0400 Body weight 97.52 kg Katelynn Clark Other [email or web address] Other 12-12-2022 13:45-0400 Diastolic blood pressure 59 mm[Hg] Katelynn Clark Other [email or web address] Other 12-12-2022 13:45-0400 Systolic blood pressure 147 mm[Hg] Katelynn Clark Other [email or web address] Other 11-02-2022 15:45-0400 Body height 167.64 cm Joes South English II Other [email or web address] Other 12-07-2021 11:45-0400 Body height 167.64 cm Jose Reinaldo II Other [email or web address] Other 12-07-2021 11:45-0400 Body mass index (BMI) [Ratio] 34.7 kg/m2 Jose Reinaldo II Other [email or web address] Other 12-07-2021 11:45-0400 Body weight 97.52 kg Jose Reinaldo II Other [email or web address] Other 11-16-2021 11:45-0400 Body height 167.64 cm Jose South English II Other [email or web address] Other 11-16-2021 11:45-0400 Body mass index (BMI) [Ratio] 34.7 kg/m2 Jose South English II Other [email or web address] Other 11-16-2021 11:45-0400 Body weight 97.52 kg Jose Reinaldo II Other [email or web address] Other 10-06-2021 16:00-0400 Body height 167.64 cm Jose South English II Other [email or web address] Other 10-06-2021 16:00-0400 Body mass index (BMI) [Ratio] 34.7 kg/m2 Jose South English II Other [email or web address] Other 10-06-2021 16:00-0400 Body weight 97.52 kg Jose Reinaldo II Other [email or web address] Other 09-13-2021 16:15-0500 Body height 167.64 cm Wayne Mccallum Other [email or web address] Other 09-13-2021 16:15-0500 Body mass index (BMI) [Ratio] 34.7 kg/m2 Wayne Mccallum Other [email or web address] Other 09-13-2021 16:15-0500 Body weight 97.52 kg Wayne Mccallum Other [email or web address] Other Encounters Encounter Date Encounter Type Care Provider Facility Start: 03-09-2025 End: 03-09-2025 ambulatory Katelynn Clark MD Work Phone: [facility] Work Phone: Start: 03-09-2025 End: 03-09-2025 Patient encounter procedure Katelynn Clark MD -[facility] Work Phone: Start: 02-19-2025 End: 02-19-2025 ambulatory [facility] Start: 12-30-2024 End: 12-30-2024 Patient encounter procedure Katelynn Clark MD -[facility] Work Phone: Start: 12-04-2024 ambulatory LUIS ALBERTO [facility] Start: 11-21-2024 End: 11-26-2024 Evaluation and management of inpatient Tod Zacarias MD Facility:[facility] Start: 11-18-2024 End: 11-20-2024 ambulatory [facility] Start: 11-18-2024 Encounter for other preprocedural examination [facility] Start: 11-18-2024 End: 11-20-2024 Preoperative state Vickey Mata MD Work Phone: [facility] Work Phone: Start: 11-18-2024 End: 11-20-2024 Subsequent hospital visit by physician Vickey Mata MD Work Phone: [facility] Non-Invasive Cardiology Comment on above: Pre-operative cleara nce; Leg edema; Paroxysmal atrial fibrillation (HCC) Start: 11-14-2024 End: 11-14-2024 ambulatory [facility] Start: 11-14-2024 End: 11-14-2024 Encounter for other preprocedural examination [facility] Start: 11-13-2024 End: 11-13-2024 ambulatory Luis Alberto Perez MD Facility:[facility] Start: 11-06-2024 End: 11-06-2024 ambulatory NON STAFF [facility] Work Phone: Start: 11-06-2024 End: 11-06-2024 Departed Referred [facility] Start: 11-03-2024 End: 11-03-2024 ambulatory [facility] Work Phone: Start: 11-03-2024 End: 11-03-2024 Patient encounter procedure [facility] Physician [facility] Work Phone: Start: 05-30-2024 End: 05-30-2024 ambulatory [facility] Work Phone: Start: 05-30-2024 End: 05-30-2024 Patient encounter procedure [facility] Physician [facility] Work Phone: Start: 05-22-2024 Non-patient / Non-visit [facility] Physician 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 ([facility]-HCC) (Primary Dx); Abnormal ankle brachial index (ELVIN); Venous ulcer of left leg ([facility]-H[facility]) Start: 12-13-2023 End: 12-13-2023 ambulatory [facility] Work Phone: Start: 12-13-2023 End: 12-13-2023 Patient encounter procedure [facility] Physician [facility] Work Phone: Start: 10-15-2023 End: 10-15-2023 ambulatory MD Katelynn Clark Work Phone: [facility] Work Phone: Start: 10-15-2023 End: 10-15-2023 Patient encounter procedure MD Katelynn Clark Work Phone: [facility] Physician [facility] Work Phone: Start: 10-04-2023 End: 10-04-2023 ambulatory MD Katelynn Clark Work Phone: [facility] Work Phone: Start: 10-04-2023 End: 10-04-2023 Patient encounter procedure MD Katelynn Clark Work Phone: [facility] Physician [facility] Work Phone: Start: 09-13-2023 End: 09-13-2023 Patient encounter procedure MD Katelynn Clark Work Phone: [facility] Start: 09-13-2023 End: 09-13-2023 Patient encounter procedure MD Katelynn Clark Work Phone: [facility] Physician [facility] Work Phone: Start: 08-30-2023 End: 08-30-2023 ambulatory [facility] Work Phone: Start: 08-30-2023 End: 08-30-2023 Patient encounter procedure [facility] Work Phone: Start: 08-27-2023 End: 08-27-2023 ambulatory Ny Annabel Other [email or web address] Other Start: 08-27-2023 Telephone encounter Ny Jin [facility] Start: 08-23-2023 End: 08-23-2023 ambulatory Ny Jin Other [email or web address] Other Start: 08-23-2023 Office outpatient ne w 45 minutes Ny Jin [facility] Start: 08-16-2023 End: 08-16-2023 ambulatory Katelynn Clark Other [email or web address] Other Start: 08-16-2023 Office outpatient vi sit 15 minutes Katelynn Clark [facility] Start: 08-16-2023 Telephone encounter Katelynn Clark [facility] Start: 08-16-2023 End: 08-16-2023 Patient encounter procedure [facility]- Start: 08-13-2023 End: 08-13-2023 ambulatory Jose Najera II Other [email or web address] Other Start: 08-13-2023 Telephone encounter Jose Najera II [facility] Start: 07-03-2023 End: 07-03-2023 ambulatory Katelynn Clark Other [email or web address] Other Start: 07-03-2023 Telephone encounter Katelynn Clark [facility] Start: 06-27-2023 Patient encounter procedure [facility]- Start: 06-18-2023 End: 06-18-2023 ambulatory ANABELLA STEWART Not Available Start: 06-11-2023 End: 06-11-2023 ambulatory Katelynn Clark Other [email or web address] Other Start: 06-11-2023 Telephone encounter Katelynn Clark [facility] Start: 06-01-2023 End: 06-01-2023 ambulatory ANABELLA STEWART Not Available Start: 05-29-2023 End: 05-29-2023 ambulatory Katelynn Clark Other [email or web address] Other Start: 05-29-2023 Office outpatient vi sit 15 minutes Katelynn Clark [facility] Start: 05-29-2023 Telephone encounter Katelynn Clark [facility] Start: 05-14-2023 End: 05-14-2023 ambulatory Jose South English II Other [email or web address] Other Start: 05-14-2023 Telephone encounter Jose South English II [facility] Start: 04-02-2023 End: 04-02-2023 ambulatory Katelynn Clark Other [email or web address] Other Start: 04-02-2023 Telephone encounter Katelynn Clark [facility] Start: 03-15-2023 End: 03-15-2023 ambulatory Jose South English II Other [email or web address] Other Start: 03-15-2023 Office outpatient vi sit 25 minutes Jose South English II [facility] Start: 02-26-2023 End: 02-26-2023 ambulatory Katelynn Clark Other [email or web address] Other Start: 02-26-2023 Telephone encounter Katelynn Clark [facility] Start: 02-08-2023 End: 02-08-2023 ambulatory Jose Reinaldo II Other [email or web address] Other Start: 02-08-2023 Office outpatient vi sit 25 minutes Jose South English II [facility] Start: 01-19-2023 End: 01-19-2023 ambulatory Katelynn Clark Other [email or web address] Other Start: 01-19-2023 Telephone encounter Katelynn Clark [facility] Start: 01-18-2023 End: 01-18-2023 ambulatory Katelynn Clark Other [email or web address] Other Start: 01-18-2023 Office outpatient vi sit 15 minutes Katelynn Clark [facility] Start: 01-17-2023 End: 01-17-2023 ambulatory Jose South English II Other [email or web address] Other Start: 01-17-2023 Telephone encounter Jose South English II [facility] Start: 12-13-2022 End: 12-13-2022 ambulatory Katelynn Clark Other [email or web address] Other Start: 12-13-2022 Telephone encounter Jose Reinaldo II [facility] Start: 12-12-2022 End: 12-13-[address] KATELYNN CLARK Facility: Start: 12-12-2022 Office outpatient vi sit 15 minutes Katelynn Clark [facility] Start: 11-02-2022 End: 11-02-2022 ambulatory Jose South English II Other [email or web address] Other Start: 11-02-2022 Office outpatient vi sit 25 minutes Jose South English II [facility] Start: 10-10-2022 End: 10-10-2022 ambulatory Jose Reinaldo II Other [email or web address] Other Start: 10-10-2022 Telephone encounter Jose Reinaldo II [facility] Start: 06-23-2022 End: 06-23-2022 ambulatory MD Katelynn Clark Work Phone: [facility] Work Phone: Start: 06-23-2022 End: 06-23-2022 Patient encounter procedure MD Katelynn Clark Work Phone: [facility] Start: 04-13-2022 End: 04-13-2022 ambulatory Jose South English II Other [email or web address] Other Start: 04-13-2022 Telephone encounter Jose Reinaldo II [facility] Start: 03-06-2022 End: 03-06-2022 ambulatory Wayne Mccallum Other [email or web address] Other Start: 03-06-2022 Office outpatient vi sit 15 minutes Wayne Mccallum [facility] Start: 01-18-2022 (Post-Op) Post-Op Jose Reinaldo II [facility] Start: 01-18-2022 End: 01-18-2022 ambulatory Jose Reinaldo II Other [email or web address] Other Start: 12-07-2021 (Post-Op) Post-Op Jose Reinaldo II [facility] Start: 12-07-2021 End: 12-07-2021 ambulatory Jose Reinaldo II Other [email or web address] Other Start: 11-21-2021 Pre-procedure evalua tion check Jose Reinaldo II Other [email or web address] Other Start: 11-16-2021 End: 11-16-2021 ambulatory Jose South English II Other [email or web address] Other Start: 11-16-2021 Office outpatient vi sit 15 minutes Jose South English II [facility] Start: 10-14-2021 (Prolonged) Prolonge d Services Jose Reinaldo II [facility] Start: 10-14-2021 End: 10-14-2021 ambulatory Jose Reinaldo II Other [email or web address] Other Start: 10-06-2021 End: 10-06-2021 ambulatory Jose South English II Other [email or web address] Other Start: 10-06-2021 Office outpatient vi sit 25 minutes Jose Najera II [facility] Start: 09-13-2021 End: 09-13-2021 ambulatory Jose Najera II Other [email or web address] Other Start: 09-13-2021 Office outpatient vi sit 25 minutes Wayne Kerrymateo [facility] Start: 09-13-2021 Telephone encounter Jose Najera II [facility] Start: 08-09-2021 End: 08-09-2021 ambulatory Wayne Paynemateo Other [email or web address] Other Start: 08-09-2021 Telephone encounter Wayne Mccallum [facility] Start: 07-28-2021 End: 07-28-2021 ambulatory Wayne Mccallum Other [email or web address] Other Start: 07-28-2021 Office outpatient vi sit 15 minutes Wayne Mccallum [facility] Start: 06-27-2021 Adult health examination Renny Najera II Other [email or web address] Other Start: 05-12-2021 Office outpatient vi sit 15 minutes Wayne Kerrymateo [facility] Procedures Date Procedure Procedure Detail Performing Clinician [...] Adult BMI Screening Adult BMI Screen ing [facility] Start: 01-23-2025 Tobacco Screening Tobacco Screening [facility] Start: 01-02-2025 Adult BMI Screening Adult BMI Screen ing [facility] Start: 01-02-2025 Tobacco Screening Tobacco Screening [facility] Start: 11-27-2024 COVID-19 Vaccine () COVID-19 Vaccine () [facility] Start: 11-18-2024 Annual Wellness Visi t (Medicare) Annual Wellness Visit (Medicare) [facility] Start: 11-06-2024 Urine culture [facility] Start: 11-06-2024 Bacteria identified in Urine by Culture Urine Culture [facility] Start: 03-16-2024 Influenza vaccination Influenza Vacc ine [facility] Start: 02-28-2024 End: 02-28-2024 Patient encounter procedure 02/28/2024 8:30 AM EDT Office Visit [facility] [address] [place] [address] Greer Su MD [address], [address] [address] [facility] Start: 01-24-2024 End: 01-24-2024 Patient encounter procedure 01/24/2024 9:20 AM EDT Office Visit [facility] [address] [place] [address] Greer Su MD [address], [address] [address] [facility] Start: 01-03-2024 End: 01-02-2025 US.doppler Extremity arteries - bilateral for physiologic artery study Vas art doppler lwr bilat mult lev/PVR Vascular Ultrasound Routine Abnormal ankle brachial index (ELVIN) Critical limb ischemia of left lower extremity with gangrene (CMS-HCC) Venous ulcer of left leg (CMS-HCC) Expected: 01/03/2024, Expires: 01/02/2025 [facility] Comment on above: Expected: 01/03/2024 , Expires: 01/02/2025 Start: 01-03-2024 End: 01-02-2025 US.doppler Lower extremity vein - bilateral Vas venous duplex insufficiency lwr bi Vascular Ultrasound Routine Abnormal ankle brachial index (ELVIN) Critical limb ischemia of left lower extremity with gangrene (CMS-HCC) Venous ulcer of left leg (CMS-HCC) Expected: 01/03/2024, Expires: 01/02/2025 [employer] Work Phone: Comment on above: Expected: 01/03/2024 , Expires: 01/02/2025 Start: 12-27-2023 COVID-19 Vaccine ( season) COVID-19 Vaccine ( season) [facility] Start: 10-15-2023 Patient referral [facility] Work Phone: Start: 05-18-2018 Pneumococcal 50+ yea rs Vaccine (2 of 2 - PPSV23) Pneumococcal 50+ years Vaccine (2 of 2 - PPSV23) [facility] Start: 2013 Fall Risk Screening Fall Risk Screen ing [employer] Start: 2003 Screening for osteoporosis DEXA (modify frequency per FRAX score) [facility] Start: 1998 Administration of varicella zoster vaccine Zoster (Shingles) Vaccine (1 of 2) [facility] Start: 1998 Shingles vaccine (1 of 2) Shingles vaccine (1 of 2) [facility] Start: 1967 DTaP,Tdap and Td Vaccines (1 - Tdap) DTaP,Tdap and Td Vaccines (1 - Tdap) [facility] Start: 1967 DTaP/Tdap/Td vaccine (1 - Tdap) DTaP/Tdap/Td vaccine (1 - Tdap) [facility] Start: 1966 Adult BMI Follow Up Plan Adult BMI Follow Up Plan [employer] Start: 1966 Hepatitis C screening Hepatitis C sc reen [facility] Start: 1960 Depression Screen Depression Screen [facility] Start: 1960 Depression Screening Depression Scre ening [employer] Start: 1948 Medicare Annual Well ness Visit Medicare Annual Wellness Visit [facility] [employer] Comprehensive metabo lic 2000 panel - Serum or Plasma [facility] MG Breast - bilatera l Screening [facility] Patient referral [facility] Work Phone: [facility] Immunizations Immunization Date Immunization Notes Care Provider Fa jaime 05-29-2023 influenza virus vaccine, unspecified formulation [facility] 05-29-2023 influenza, high dose seasonal, preservative-free Katelynn Clark Other [facility] [employer] Other 04-11-2021 COVID-19 mRNA, Comirnaty (Pfizer) MD Katelynn Clark Work Phone: [facility] 09-07-2020 COVID-19 mRNA, Comirnaty (Pfizer) MD Katelynn Clark Work Phone: [facility] 08-17-2020 COVID-19 mRNA, Comirnaty (Pfizer) MD Katelynn Clark Work Phone: [facility] 05-24-2020 Kenalog -40 mg Wayne Mccallum Other [facility] [facility] [employer] Other 03-31-2020 influenza virus vaccine, split virus (incl. purified surface antigen) Jose Najera II Other [email or web address] Other 03-31-2020 influenza virus vaccine, unspecified formulation [facility] 08-11-2019 Kenalog -40 mg Wayne Mccallum Other [email or web address] Other 11-04-2018 Kenalog -40 mg Wayne Payneer Other [email or web address] Other 03-19-2018 Supquincy Mccallum Other [email or web address] Other 03-12-2018 Theraputic Injection Wayne Mccallum Other [email or web address] Other 03-05-2018 Supquincy Mccallum Other [email or web address] Other 02-26-2018 Daya Mccallum Other [email or web address] Other 02-19-2018 Daya Mccallum Other [email or web address] Other 11-27-2017 Kenalog -40 mg Wayne Mccallum Other [email or web address] Other 05-31-2016 influenza virus vaccine, split virus (incl. purified surface antigen) Jose South English II Other [email or web address] Other 05-31-2016 influenza virus vaccine, unspecified formulation [facility] 05-31-2016 pneumococcal polysaccharide vaccine, 23 valent Jose South English II Other [facility] Payers Date Payer Category Payer Self-pay [id number] 2023 Medicare [id number] 2023 Unknown 2019 Medicare [id number] 2013 Medicare [id number] 1959 Medicare [id number] 2.1 [id number] 1959 Unknown [id number] 2.1 [id number] 1948 Unknown [id number] 2.16.84 [id number] 1948 Unknown [id number] 2.16.840 [id number] 1948 Unknown [id number] 2.16.840 [id number] 1948 Unknown [id number] 2.16.8 [id number] 1948 Unknown [id number] 2.16. [id number] 1948 Unknown [id number] 2.16. [id number] 1948 Unknown [id number] 2.16.8 [id number] 1948 Unknown [id number] 2.16.8 [id number] Unknown Karen BC/JM [id number] Unknown [id number] 2.16.8 [id number] Social History Date Type Detail Facility Unknown if ever smoked [email or web address] Other Start: 01-03-2024 End: 02-28-2024 Sex Assigned At [facility] [employer] Other Start: 10-26-2021 End: 07-13-2024 Tobacco smoking status NHIS Never smoked tobacco (finding) [facility] Start: 1950 Sex Assigned At Female F [facility] Start: 05-30-2024 End: 11-14-2024 Sex Female (finding) [facility] Start: 01-03-2024 Tobacco use and exposure Smokeless tobacco [facility] Start: 01-03-2024 End: 08-15-2024 Alcoholic beverage intake Current drinker of alcohol (finding) [employer] Start: 01-03-2024 End: 02-28-2024 Alcoholic beverage intake [employer] Within the past 12 months we worried whether our food would run out before we got money to buy more. Never True [employer] Start: 1950 Sex assigned at Not on file P [employer] [facility] Tobacco smoking status [facility] Tobacco smoking consumption unknown [facility] Medical Equipment Procedure Code Equipment Code Equipment Origin al Text Equipment Identifier Dates Arthroplasty, knee, total, minimally invasive Orthopaedic cement, non-medicated [id number] FDA Start: 10-24-2021 Arthroplasty, knee, total, minimally invasive Uncoated knee femur prosthesis, metallic ()[id number] FDA Start: 10-24-2021 Arthroplasty, knee, total, minimally invasive Tibial insert ()[id number] FDA Start: 10-24-2021 Arthroplasty, knee, total, minimally invasive Polyethylene patella prosthesis ()[id number] FDA Start: 10-24-2021 Arthroplasty, knee, total, minimally invasive Knee stem ()[id number] FDA Start: 10-24-2021 Arthroplasty, knee, total, minimally invasive Uncoated knee tibia prosthesis, metallic ()[id number] FDA Start: 10-24-2021 Clinical Notes 05-12-2021 to 02-19-2025 Note Date & Type Note Facility 02-19-2025 Note [facility] [place] [facility] Note Reason for cardiology [...] drugs Family history her mother due to CO at age 69. Her father had congestive [...] - 11/21/2024 Echo 11/19/2024 at [facility] in [place] Lower extremities Doppler study 01/10/2024 PVR waveforms: [...] Below knee: Mi (more content not included)... [facility] 12-30-2024 Evaluation note Diagnosis Onset Date [...] for breast cancer acute March 09 1:27pm [facility] Work Phone: 1(815) 898-206105-15-2025 NoteAdmission Information Patient is a 74-year-old female [...] by Luis Alberto Perez MD 11/27/24 [facility] Chief Complaint Left knee pain Reason for Consultation: Medical manager talent management Provider: Dr. Perez Date of Consult: 11/21/2024 [...] reviewed other provider notes. Anticipated Discharge [facility] Patient follow-up with PCP, cardiology, orthopedics, [...] mg oral tablet, 40 (more content not included)...[facility]05-13-2025 NoteChief Complaint Left knee pain Reason for [...] ECG 11/05/24 - Saw Dr. Naz Barney, [facility] electrical electronics engineer, in [place] > He noted she was completed asymptomatic > Ventricular rates were controlled due to preexisting treatment with metoprolol tartrate 100 mgBID and verapamil SR 180 mg daily - TTE completed preoperatively at [facility] on 11/18 --> normal LVEF with mild [...] diastolic function, mild LAE, mild MR, mild [place] ([facility]) Physical Exam Vitals & Measurements T: 37 [...] rehab - Follow up with Dr. Barney, [facility] electrical electronics engineer, after discharge 2. Hypertension - Continue verapamil [...] 180 mg= 1 tabs, (more content not included)...[facility]05-13-2025 NoteChief Complaint Left knee pain Reason for Consultation: Medical manager talent management Provider: Dr. Perez Date of Consult: 11/21/2024 [...] acetaminophen, 1000 mg, O (more content not included)...[facility]05-12-2025 NoteChief Complaint Left knee pain Reason for Consultation: Medical manager talent management Provider: Dr. Perez Date of Consult: 11/21/2024 [...] 75 mg oral c (more content not included)...[facility]05-11-2025 NoteChief Complaint Left knee pain Reason for Consultation: Medical manager talent management Provider: Dr. Perez Date of Consult: 11/21/2024 [...] tabs, Oral, Daily, AM (more content not included)...[facility]05-10-2025 NoteChief Complaint Left knee pain Reason for Consultation: Medical manager talent management Provider: Dr. Perez Date of Consult: 11/21/2024 [...] mg/12 hours oral tab (more content not included)...[facility]05-09-2025 NoteIndication for Surgery Patient is a 74-year-old [...] MUJICA, Luis Alberto Vegas (Surgeon - Primary) Bag Machine Tender Bella Yarbrough PA-C (Box Car Checker) Anesthesia General Chance MUJICA, Salas De Jesus (Provider) Tressa GOLD-STORE HOST, Moises Herrmann (Provider) Moy GOLD-STORE HOST, Mayi Ferguson (Provider) Estimated Blood Loss 500.0 [...] confirming correct surgical site, patient, and procedure. Jackman exsanguination was used and tourniquet was inflated [...] size 9. The fem (more content not included)...[facility]05-06-2025 History of Present illness Narrative* Korina Ham - 11/18/2024 10:30 AM EDT Explained policies and procedure of an echocardiogram/Doppler study. documented in this encounterBon [facility] Reason for [...] drugs Family history her mother due to CO at age 69. Her father had congestive [...] peripheral arterial disease Be (more content not included)...[facility]04-21-2025 Evaluation note* Diagnosis Onset Date Resolution Status Admit Date Essential (primary) hypertension acu te November 03, 2024 1:01pm Primary osteoarthritis of le ft knee acute November 03, 2024 1:01pm Right femoral vein DVT acute Ap 2024 1:01pm [facility] Work Phone: 1(213) 492-642808-15-2024 Evaluation + Plan note* Assessment & Plan Note - Greer Su MD - 02/28/2024 9:01 AM EDTAssociated Problem(s): Venous ulcer of left leg (CMS-HCC) Wound pretty much healed. Discussed with her risk factors modification and follow-up as needed. [facility]08-15-2024 Evaluation + Plan note* Assessment & Plan Note - Greer Su MD - 02/28/2024 9:01 AM EDTAssociated Problem(s): Critical limb ischemia of left lower extremity with gangrene (CMS-HCC) Wound pretty much healed. Discussed with her risk factors modification and follow-up as needed. [facility]08-15-2024 Miscellaneous Notes* Assessment & Plan Note - Greer Su MD - 02/28/2024 9:01 AM EDTAssociated Problem(s): Venous ulcer of left leg (CMS-HCC) Wound pretty much healed. Discussed with her risk factors modification and follow-up as needed. * Assessment & Plan Note - Greer Su MD - 02/28/2024 9:01 AM EDT Associated Problem(s): Critical limb ischemia of left lower extremity with gangrene ([facility]-HCC) Wound pretty much healed. Discussed with her risk factors modification and follow-up as needed. [facility] History of Present illness Narrative* Greer [...] reflux that is relatively mild with a dip lube operator in the left lower extremity near her [...] Past Medical History: Diagnosis Date Clotting disorder ([facility]) Deep vein thrombosis ([facility]) History of arterial disease of lower extremity [...] you for your understanding. [facility] Evaluation + Plan note* Assessment & Plan Note - Greer Su MD - 01/24/2024 9:20 AM EDT Associated Problem(s): Venous ulcer of left leg (CMS-HCC) We will reevaluate in a month. If the ulcer healed or healing well we will hold off on any intervention otherwise we will do ultrasound-guided injection sclerotherapy and ablation of the GSV. [facility]07-11-2024 History of Present illness Narrative* Greer [...] GSV reflux that isrelatively mild with a dip lube operator in the left lower extremity near her [...] Past Medical History: Diagnosis Date Clotting disorder ([facility]-HCC) Deep vein thrombosis ([facility]-HCC) History of arterial disease of lower [...] ulcer of left leg (CMS-HCC) - Primary [facility] was seen today for critical limb [...] you for your understanding. documented in this encounterA[facility]-2024 Miscellaneous Notes* Assessment & Plan Note - Greer Su MD - 01/24/2024 9:20 AM EDT Associated Problem(s): Venous ulcer of left leg (CMS-HCC) We will reevaluate in a month. If the ulcer healed or healing well we will hold off on any intervention otherwise we will do ultrasound-guided injection sclerotherapy and ablation of the GSV. documented in this encounterA[facility]06-[facility]-20[facility] Evaluation + Plan note* Assessment & Plan Note - Greer Su MD - 01/03/2024 10:48 AM EDT Associated Problem(s): Critical limb ischemia of left lower extremity with gangrene (CMS-HCC) PVR with toe pressure [facility]06-20-2024 Miscellaneous Notes* Assessment & Plan Note - Greer Su MD - 01/03/2024 10:48 AM EDTAssociated Problem(s): Critical limb ischemia of left lower extremity with gangrene (CMS-HCC) PVR with toe pressure * Assessment & Plan Note - Greer Su MD - 01/03/2024 10:47 AM EDT Associated Problem(s): Venous ulcer of left leg (CMS-HCC) Venous reflux ultrasound and compression therapy documented in this encounterA[facility]06-[facility]-2024 Evaluation + Plan note* Assessment & Plan Note - Greer Su MD - 01/03/2024 10:47 AM EDT Associated Problem(s): Venous ulcer of left leg (CMS-HCC) Venous reflux ultrasound and compression therapy [facility]06-20-2024 History of Present illness Narrative* Greer [...] Problem List Venous ulcer of left leg ([facility]-HCC) Current Assessment & Plan Venous reflux ultrasound and compression therapy Relevant Orders Vas venous duplex insufficiency lwr bi Vas art doppler lwr bilat mult lev/PVR Critical limb ischemia of left lower extremity with gangrene ([facility]-HCC) - Primary Current Assessment & Plan [...] (ELVIN) - [facility] [place], [place] - Vas venous duplex insufficiency lwr [...] you for your understanding. documented in this encounterA[facility]02-[facility]-2024 Evaluation note* Encounter Date Diagnosis Assessment [...] Aug, Lower extremity edema (ICD-10 - R60.0) [email or web address] Other 02-01-2024 Evaluation note* Encounter Date Diagnosis Assessment Notes Treatment Notes Treatment Clinical Notes Aug, Leg edema, right (ICD-10 - R60.0) Check US today, discussed other possibilities but r/o DVT first. [email or web address] Other 12-19-2023 Evaluation note* Encounter Date Diagnosis Assessment Notes Treatment Notes Treatment Clinical Notes Jun, Lumbar pain (ICD-10 - M54.50) [email or web address] Other 11-27-2023 Evaluation note* Encounter Date Diagnosis Assessment Notes Treatment Notes Treatment Clinical Notes May, DDD (degenerative disc disease), lumbar (ICD-10 - M51.36) [email or web address] Other 11-14-2023 Evaluation note* Encounter Date Diagnosis Assessment Notes Treatment Notes Treatment Clinical Notes May, Peripheral polyneuropathy (ICD-10 - G62.9) Requests labs to r/o metabolic causes. May, Lumbar pain (ICD-10 - M54.50) Chronic lumbar pain. Agrees to start w xray. May, Paronychia, toe, lef t (ICD-10 - L03.032) Pt requests antibiotic at end of visit. Keep foot clean and dry. [email or web address] Other 08-31-2023 Evaluation note* Encounter Date Diagnosis [...] wedding planned the end of August 2023. [email or web address] Other 07-27-2023 Evaluation note* Encounter Date Diagnosis [...] it is not something that I prescribed. [email or web address] Other 07-06-2023 Evaluation note* Encounter Date Diagnosis Assessment Notes Treatment Notes Treatment Clinical Notes Jan, Easy bruisability (ICD-10 - R23.3) Pt will get labs today. Discussed possible link w the frequent NSAIDs Jan, Essential (primary) hypertension (ICD-10 - I10) Due for labs. Possible elevated glucose - nonfasting, had steroid pills and injections due to foot issues. She is seeing podiatry for plantar fasciitis. [email or web address] Other 07-06-2023 Evaluation note* Encounter Date Diagnosis [...] symptoms. Any developing patterns. Stay well hydrated. [email or web address] Other 05-31-2023 NotePROCEDURE: XR FOOT LT MIN [...] Electronically authenticated by: TIM TORREZ Date: 2022-12-13 08:39[facility]05-30-2023 Evaluation note* Encounter Date Diagnosis Assessment Notes Treatment Notes Treatment Clinical Notes November, Left foot pain (ICD-10 - M79.672) Discussed primary concern of stress fracture. Pt agrees to xray. Reviewed ortho notes. She is to followup there prn. [email or web address] Other 2023 Evaluation note* Encounter Date Diagnosis Assessment Notes Treatment Notes Treatment Clinical Notes Oct, History of total right knee replacement (ICD-10 - Z96.651) Oct, Primary osteoarthritis of both knees (ICD-10 - M17.0) Oct, Other [facility] at [facility] on 10/24/2021 Happy with surgical result [...] as needed basis for the left knee. [email or web address] Other 09-29-2022 Evaluation note* Encounter Date Diagnosis Assessment Notes Treatment Notes Treatment Clinical Notes Mar, Primary osteoarthritis of both knees (ICD-10 - M17.0) [email or web address] Other 08-22-2022 Evaluation note* Encounter Date Diagnosis [...] note writ ten by Richar Kruger LPN, Topology Professor. Edited and approved by Dr. Wayne Mccallum MD. [email or web address] Other 07-06-2022 Evaluation note* Encounter Date Diagnosis Assessment Notes Treatment Notes Treatment Clinical Notes Jan, Primary osteoarthritis of both knees (ICD-10 - M17.0) Jan, Aftercare following joint replacement surgery (ICD-10 - Z47.1) Jan, History of total right knee replacement (ICD-10 - Z96.651) Jan, Other [facility] at [facility] on 10/24/2021 Doing well Discussed post-op dental prophylaxis. Shared decision made to continue prophylactic antibiotics indefinitely. Follow-up at 1 year post-op for repeat examination and 2 view x-rays of the right knee. Patient instructed to call with any questions or concerns. [email or web address] Other 05-25-2022 Evaluation note* Encounter Date Diagnosis Assessment Notes Treatment Notes Treatment Clinical Notes November, Primary osteoarthritis of both knees (ICD-10 - M17.0) November, Aftercare following joint replacement surgery (ICD-10 - Z47.1) November, History of total right knee replacement (ICD-10 - Z96.651) November, Other [facility] at [facility] on 10/24/2021 Doing well Patient may continue activities as tolerated. Continue PT as recommended. Continue taking ulan-tpx-[id number] anti-inflammatori es as needed for assistance with swelling and pain associated with the operative extremity. Follow-up in 6 weeks for repeat examination and long standing x-rays. [email or web address] Other 05-04-2022 Evaluation note* Encounter Date Diagnosis [...] for 3 views of the right knee. [email or web address] Other 04-01-2022 Evaluation note* Encounter Date Diagnosis [...] patient could proceed with surgery safely. The woods manager was vital for surgery timing and [...] plans. Prolonged services time spent: 37 minutes [email or web address] Other 04-01-2022 History general Narrative - Reported* Type Description Date Medical History hypertension Surgical History bilateral SANDRO Surgical History abdominal surgery Surgical History RT TKR 10/2021 Hospitalization History see above [email or web address] Other 04-01-2022 History general Narrative - Reported* Type Description Date Medical History hypertension Surgical History bilateral SANDRO Surgical History abdominal surgery Surgical History RT TKR 10/2021 Surgical History COLONOSCOPY Hospitalization History see above [email or web address] Other 04-01-2022 History general Narrative - Reported* Type Description Date Medical History hypertension Medical History Frozen shoulder Medical History Lumbar pain Surgical History bilateral SANDRO Surgical History abdominal surgery Surgical History RT TKR 10/2021 Surgical History COLONOSCOPY Hospitalization History see above [email or web address] Other 03-24-2022 Evaluation note* Encounter Date Diagnosis [...] rehab stay. Joints Meeting Checklist - Pharmacy: [facility] to bed - Approach/Technique: ZULLY - [...] elected to proceed with the above surgery. [email or web address] Other 03-01-2022 Evaluation note* Encounter Date Diagnosis [...] note writ ten by Richar Kruger LPN, Topology Professor. Edited and approved by Dr. Wayne Mccallum MD. [email or web address] Other 03-01-2022 Evaluation note* Encounter Date Diagnosis Assessment Notes Treatment Notes Treatment Clinical Notes Sep, Primary osteoarthritis of both knees (ICD-10 - M17.0) [email or web address] Other 01-25-2022 Evaluation note* Encounter Date Diagnosis Assessment Notes Treatment Notes Treatment Clinical Notes Jul, Primary osteoarthritis of both knees (ICD-10 - M17.0) [email or web address] Other 01-13-2022 Evaluation note* Encounter Date Diagnosis [...] note writ ten by Richar Kruger LPN, Topology Professor. Edited and approved by Dr. Wayne Mccallum MD. [email or web address] Other 10-28-2021 Evaluation note* Encounter Date Diagnosis [...] note writ ten by Nissa Murillo CMA, Topology Professor. Edited and approved by Dr. Wayne Mccallum MD. [facility] Other Evaluation noteNo assessment information available [facility] Work Phone: Evaluation noteNo InformationNortEncompass [facility] Other Evaluation note* Diagnosis Onset Date Resolution Status Right femoral vein DVT acute [facility] Work Phone: Evaluation note* Diagnosis Onset Date Resolution Status Essential (primary) hypertension acute Knee arthropathy acute Right femoral vein DVT acute PAD (peripheral artery disease) acute Primary osteoarthritis of left knee acute [facility] Work Phone: Evaluation note* Diagnosis Onset Date Resolution Status Essential (primary) hypertension acute Knee arthropathy acute Right femoral vein DVT acute PAD (peripheral artery disease) acute Primary osteoarthritis of left knee acute PAD (peripheral artery disease) acute Venous ulcer of left leg acu te [facility] Work Phone: Evaluation note* Diagnosis Onset Date Resolution Status Primary osteoarthritis of left knee acute PAD (peripheral artery disease) acute Venous ulcer of left leg acu te Primary osteoarthritis of left knee acute [facility] Work Phone: Evaluation note* Diagnosis Critical limb ischemia of left lower extremity with gangrene (CMS-HCC)- Primary Abnormal ankle brachial index (ELVIN) Venous ulcer of left leg (CMS-HCC) documented in this encounter [facility] SystemEvaluation note* Diagnosis Venous ulcer of left leg (CMS-HCC)- Primary documented in this encounter [facility] SystemEvaluation note* Diagnosis Venous ulcer of left leg (CMS-HCC)- Primary Critical limb ischemia of left lower extremity with gangrene (CMS-HCC) documented in this encounter [facility] SystemEvaluation note* Diagnosis Pre-operative clearance Preoperative examination, unspecified Leg edema Edema Paroxysmal atrial fibrillation (HCC) Atrial fibrillation documented in this encounter [facility] general Narrative - Reported* Type Description Date Medical History hypertension Surgical History bilateral SANDRO Surgical History abdominal surgery [email or web address] Other Hospital Discharge instructionsAmbulatory Orders* Referral to Wound Care Time Frame: 10/15/23, Location: None Selected [facility] Work Phone: InstructionsNot on filedocumented in this encounter [facility]ructionsNot on filedocumented in this encounter [facility]ructionsNot on filedocumented in this encounter [facility] SystemReason for referral (narrative)No reason for referral [facility] Work Phone: Reason for visit Narrative* Imaging (Routine) - Pending Review Specialty Diagnoses / Procedures Referred By Eugenia t Referred To Contact Cardiology Diagnoses Pre-operative clearance Leg edema Paroxysmal atrial fibrillation (HCC) Procedures Echo (TTE) complete (PRN contrast/bubble/strain/3D) [place] ECHO TTHRC R-T 2D W/WOM-MODE COMPL SPEC&COLR D [place] TTE W OR WO FOL WCON,DOPPLER Vickey Mata MD [address] [facility] [address] [place] [address] Phone: tel: fax: Referral ID Status Reason Start Date Expiration Date V isits Requested Visits Authorized [id number] Pending Review 11/16/2024 11/14/2025 1 1 [facility] Family History Relationship Condition Age at Onset [...] lev/PVR Greer Su MD [address], [address] [address] Referral ID Status Reason Start Date Expiration Date V isits Requested Visits Authorized [id number] Pending Review 01/03/2024 01/02/2025 1 1 Specialty Diagnoses / Procedures Referred By Contac t Referred To Contact Diagnoses Abnormal ankle brachial index (ELVIN) Critical limb ischemia of left lower extremity with gangrene (CMS-HCC) Venous ulcer of left leg ([facility]-HCC) Procedures Vas venous duplex insufficiency lwr bi Greer Su MD [address], [address] [address] Referral ID Status Reason Start Date Expiration Date V isits Requested Visits Authorized [id number] Pending Review 01/03/2024 01/02/2025 1 1 Reason evaluate and t reat Diagnosis 1 Lumbar pain (M54.50) Referral Organization [facility] Referring Provider First Name Ny Referring Provider Last Name Annabel Referring Provider Specialty Nurse Pract itioner Referred Organization [facility] Referred Provider Wayne Mccallum Referred Address [address] [place],[address] Referred Provider Specialty Pain Medicin e Referral Priority Routine General Notes Eryn Reynoso 02:02:11 PM >received today, patient previously seen by Dr Mccallum (last visit Feb 2022) and is still considered established. sending p2p at this time for scheduling. Reason evaluate and t reat for peripheral vascular disease Diagnosis 1 Peripheral vascular disease (I73.9) Referral Organization [facility] Referring Provider First Name Ny Referring Provider Last Name Annabel Referring Provider Specialty Nurse Ana Lilia stevens Referred Organization [facility] Vascular Surge ry Referred Provider Willy Yancey Referred Address [address],[facility] [address],[place], [place],[address] Referred Provider Specialty Vascular Samantha piotr Referral Priority Routine General Notes Eryn Reynoso 02:08:33 PM >received today, p2p sent for scheduling Reason *Waiting for appt chronic lumbar - recent MRI Diagnosis 1 Lumbar pain (M54.50) Referral Organization [facility] Referring Provider First Name Katelynn Referring Provider Last Name Amber Referring Provider Specialty Family Medi cine Referred Organization [facility] Spine Center Referred Provider Jose Clark Referred Address [address] [facility] [address] ,[place], [place],[address] Referred Provider Specialty Neurological Surgery Referral Priority [...] ankle brachial index (ELVIN) records requested and [place] called for ELVIN Disk pushedto PACS Edema Wound not healing , Wound clinic would like you to look deeper into the PAD Specialty Diagnoses / Procedures Referred By Eugenia parkinson Referred To Contact Vascular Surgery Diagnoses Abnormal ankle brachial index (ELVIN) Katelynn Clark MD [address] [place] [address] Greer Su MD [address] [place] [address] Referral ID Status Reason Start Date Expiration Date Visits Requested Visits Authorized [id number] Pending Review Specialty Services Required 11/29/2023 11/28/2024 [...] December 13, 2023 End: December 13, 2023 Conveyor Man Relationship Specialty Start Date End Date Katelynn Clark MD [address] [place], [place] [id number] PCP - General Family Medicine 11/29/23 Conveyor Man Relationship Specialty Start Date End Date Katelynn Clark MD [address] [place] [address] PCP - General Family Medicine 11/29/23 Conveyor Man Relationship Specialty Start Date End Date Katelynn Clark MD [address] [place] [address] PCP - General Family Medicine 11/29/23 Team [...] and content) DATE CREATED AUTHOR 12/22/2022 [facility] DATE CREATED AUTHOR AUTHOR'S ORGANIZ ATION 06/20/2023 [facility] DATE CREATED AUTHOR AUTHOR'S ORGANIZ ATION 11/21/2024 [facility] DATE CREATED AUTHOR AUTHOR'S ORGANIZ ATION 11/30/2024 [facility] DATE CREATED AUTHOR AUTHOR'S ORGANIZ ATION 12/10/2024 [facility] DATE CREATED AUTHOR AUTHOR'S ORGANIZ ATION 12/11/2024 [facility] DATE CREATED AUTHOR AUTHOR'S ORGANIZ ATION 02/24/2025 [facility] FOR RECORDS PERTAINING TO PATIENTS WHO [...] BE BASED ON THE PRIMARY CLINICAL RECORDS. [facility]. provides no warranty or guarantee of the accuracy or completeness of information in this document.
[2025-04-03 11:13] LABS: Hematocrit 43.2 % (36.0-48.0); Hemoglobin 14.4 g/dL (12.0-16.0); Immature Granulocytes Abs Auto 0.03 10^3/uL (0.00-0.03); Immature Granulocytes Pct Auto 0.5 % (0.0-0.5); Lymphocytes Absolute Auto 1.3 10^3/uL (1.2-3.8); Mean Corpuscular HGB Conc 33.3 g/dL (29.9-35.2); Mean Corpuscular Hemoglobin 29.6 pg (26.7-34.0); Mean Corpuscular Volume 88.9 fL (81.0-99.0); Platelet Count 205 10^3/uL (150-450); Red Blood Count 4.86 10^6/uL (4.20-5.40); White Blood Count 6.0 10^3/uL (4.0-11.0)
[2025-04-03 11:39] LABS: Alanine Aminotransferase 29 U/L (14-59); Albumin Globulin Ratio 0.9; Albumin Level 3.4 g/dL (3.4-5.0); Alkaline Phosphatase 90 U/L (46-116); Anion Gap 11.5; Aspartate Amino Transferase 24 U/L (15-37); Blood Urea Nitrogen 28.0 mg/dL (7.0-18.0); Calcium 9.6 mg/dL (8.5-10.1); Carbon Dioxide 26.8 mmol/L (21.0-32.0); Chloride 107 mmol/L (98-107); Cholesterol 125 mg/dL (<=200); Estimated GFR (African America >60 (>=60 mL/min/1.73m^2); Estimated GFR (Non-African Ame 53 (>=60 mL/min/1.73m^2); Globulin 3.7 g/dL; Glucose 98 mg/dL (74-106); HDL Cholesterol 66 mg/dL (40-60); Potassium 4.3 mmol/L (3.5-5.1); Sodium 141 mmol/L (136-145); Total Protein 7.1 g/dL (6.4-8.2); Triglycerides 100 mg/dL (<=150); VLDL CHOLESTEROL 20.0 mg/dL
== END 2025-04-03 10:57 | disposition home or self-care (01) ==
LOC: LAB 10:58
PROVIDERS: PCP Family Medicine; Visit Provider Family Medicine
DX: Z00.00 Encounter for general adult medical examination without abnormal findings (principal); I48.0 Paroxysmal atrial fibrillation; E78.5 Hyperlipidemia, unspecified; I10 Essential (primary) hypertension
CPT/HCPCS: 36415; 80053; 80061; 85025

== ENCOUNTER 2025-04-30 08:11 | Outpatient (OUT) | payer MEDICARE, SELFPAY ==
--- OUTSIDE RECORDS SUMMARY | 2025-04-30 08:14 | XMS_ITS | Encounter Summary ---
Author Organization [facility] Address [address] [place] [address] Care Team Providers Care Store Deli Manager Name Role Phone Vashti Engle MD Primary Care Provider [phone] Encounter Details Date Type Department Care Team (Late st Contact Info) Description 01/10/2024 Clinisync Result Encounter [facility] External Department Unsolicited Greer Su MD [address], [place] [id number] Social History Tobacco Use Types Packs/Day Years [...] EDT Narrative 01/10/2024 3:09 PM EDT The [address] [address] Vein Report Signed Patient: RICKKAMI CHEEMA MR#: [id number] : 1950 Acct:[id number] Age/Sex: 73 / F ADM Date: 01/10/24 Loc: VC Attending Dr: Greer Su M.D. Ordering Physician: Greer Su M.D. Date of Service: 01/10/24 Procedure(s): VC EXT Venous Reflux NAVJOT LMTD Accession Number(s): [id number] cc: Vashti Engle M.D.; Greer Su M.D. Patient Name: KAMI FINK MR#: [id number] : 1950 Exam Date: 01/10/2024 Ordering Doctor: [...] chronic thrombus visualized Compressibility: Normal Flow: Normal Balancer: Dist/med calf in area of wound 6.2mm with 1.4s reflux. 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 Patent varicose vein prox/med calf off of [...] Signed By: 01/10/24 1509 DD/ 1508 TD/TT: Caul Fat Puller: Procedure Note Radiology, Radiologist, MD - 01/10/2024 [place] [address] Vein Report Signed Patient: KAMI FINK JMR#: [id number] : 8Acct:[id number] Age/Sex: 73 / FADM Date: 01/10/24 Loc: VC Attending Dr: Greer Su M.D. Ordering Physician: Greer Su M.D. Date of Service: 01/10/24 Procedure(s): VC EXT Venous Reflux NAVJOT LMTD Accession Number(s): [id number] cc: Vashti Engle M.D.; Greer Su M.D. Patient Name: KAMI FINK MR#: [id number] : 1950 Exam Date: 01/10/2024 Ordering Doctor: [...] chronic thrombus visualized Compressibility: Normal Flow: Normal Balancer: Dist/med calf in area of wound 6.2mm with 1.4s reflux. 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 Patent varicose vein prox/medcalf off of GSV [...] M.D. Signed By:01/10/24 1509 DD/ 1508 TD/TT: Caul Fat Puller: Greer Su MD [facility] Final Resu lt documented in this encounter Visit Diagnoses Not on filedocumented in this encounter Care Teams Store Deli Manager Relationship Specialty Start Date End Date Vashti Engle MD PCP - General Family Medicine 12/25/22 documented as of this encounter
--- OUTSIDE RECORDS SUMMARY | 2025-04-30 08:14 | XMS_ITS | Clinical Summary ---
Author Organization [facility] Address [address] [place] [address] Care Team Providers Care Physical Chemist Name Role Phone Vashti Engle MD Primary Care Provider [phone] Allergies No known active allergies Medications acetaminophen 500 mg capsule Take 500 mg by mouth every 6 (six) hours if needed. Active Eliquis 5 mg tablet Take 5 mg by mouth in the morning and at bedtime. Active atorvastatin (Lipitor) 40 mg tablet Take 40 mg by mouth in the morning. Active famotidine (Pepcid) 20 mg tablet Take by mouth in the morning. Active metoprolol tartrate (Lopressor) 100 mg tablet Take 100 mg by mouth twice a day. 11/26/2022 Active verapamil SR (Calan-SR) 180 mg ER tablet Take 180 mg by mouth at bedtime. Active Active Problems Problem Noted Date Diagnosed Date Pre-op evaluation 11/16/2024 Longstanding persistent atrial fibrillation 10/2024 Bilateral leg edema 11/16/2024 Venous insufficiency 11/16/2024 Peripheral arterial disease 11/16/2024 Essential hypertension 11/16/2024 Hyperlipidemia 11/16/2024 Critical limb ischemia of le ft lower extremity with gangrene 01/03/2024 Venous ulcer of left leg 01/03/2024 Encounters Date Type Department Care Team Description 04/15/2025 Telephone [facility] [address] [place] [address] Marisela Hayes MA 02/19/2025 11:00 AM EDT Office Visit [facility] [address] [place] [address] Kemi Mata MD Longstanding persistent atrial fibrillation (CMS/HCC) (Primary Dx); Essential hypertension; Peripheral arterial disease; Venous insufficiency; Pure hypercholesterolemia; Class 1 obesity due to excess calories without serious comorbidity with body mass index (BMI) of 33.0 to 33.9 in adult from Last 3 Months Family History Medical History Relation Name Comments Heart failure Father Heart attack Mother Coronary artery disease Sister Relation Name Status Comments Father Mother Sister Social History Tobacco Use Types Packs/Day Years Used Date Smoking Tobacco: Never Smokeless Tobacco: Never Tobacco Cessation:Counseling Given: Not Answered Alcohol Use Standard Drinks/Week Comments Yes 0 (1 standard drink = 0.6 oz pur e alcohol) occasional Comments Unknown Sex and Gender Information Value Date Recorded Sex Assigned at Female 02/17/2025 3:32 PM EDT Legal Sex Female 4:57 PM EDT Gender Identity Female 02/17/2025 3:32 PM EDT Sexual Orientation Heterosexual or Straight 11/2024 3:32 PM EDT Last Filed Vital Signs Vital Sign Reading Time Taken Comments Blood Pressure 157/93 02/19/2025 11:35 AM EDT Pulse 83 02/19/2025 11:35 AM EDT Temperature - - Respiratory Rate - - Oxygen Saturation 98% 02/19/2025 11:35 AM EDT Inhaled Oxygen Concentration - - Weight 88 kg (194 lb) 02/19/2025 11:35 AM EDT Height 162.6 cm (5' 4 ) 02/19/2025 11:35 AM EDT Body Mass Index 33.3 02/19/2025 11:35 AM EDT Plan of Treatment Health Maintenance Due Date Last Done Comments Medicare Annual Wellness (AWV) 1950 Depression Screening 1960 Adult Tetanus 1970 Zoster Vaccines (1 of 2) 1998 Fall Risk Screening 2013 Pneumococcal Vaccine: 50+ Years (2 of 2 - PCV20 or PCV21) 05/18/2018 05/18/2017 COVID-19 Vaccine ( season) 2025 05/30/2024, 08/28/2023, 05/13/2022, Additional history exists Influenza Vaccine (#1) 2025 , 04/24/2022, 06/02/2021, Additional history exists HIB Vaccines Aged Out No longer eligi ble based on patient's age to complete this topic HPV Vaccines Aged Out No longer eligi ble based on patient's age to complete this topic IPV Vaccines Aged Out No longer eligi ble based on patient's age to complete this topic Meningococcal B Vaccine Aged Out No l onger eligible based on patient's age to complete this topic Meningococcal Vaccine Aged Out No marisa patel eligible based on patient's age to complete this topic Rotavirus Vaccines Aged Out No longer eligible based on patient's age to complete this topic Insurance MEDICARE Member Subscriber Plan / Payer (Ef fective 2023-Present) Name:Kami Fink Member ID:[id number] Relation to Subscriber:Self Name:Kami Fink Subscriber ID:[id number] Payer ID:[id number] Group ID:Not on file Type:Medicare Address: [facility] [place] [id number] [facility] Care Teams Physical Chemist Relationship Specialty Start Date End Date Vas[place] [address] PCP - General 11/11/24
--- OUTSIDE RECORDS SUMMARY | 2025-04-30 08:14 | XMS_ITS | Clinical Summary ---
Author Organization [facility] Address [address] [place] [address] Care Team Providers Care Straw Hat Presser Name Role Phone Vashti Engle MD Primary Care Provider [phone] Allergies No known active allergies Medications diclofenac [...] 06/18/2023 1:25 PM EST Plan of Treatment Not on file Insurance MEDICARE [facility] Care Teams Straw Hat Presser Relationship Specialty Start Date End Date Vashti Engel MD PCP - General Family Medicine 12/25/22
--- OUTSIDE RECORDS SUMMARY | 2025-04-30 08:15 | XMS_ITS | Encounter Summary ---
Author Organization [facility] Address [address] [place] [address] Care Team Providers Care Loan Teller Name Role Phone Vashti Engle MD Primary Care Provider [phone] Encounter Details Date Type Department Care Team (Late st Contact Info) Description 05/09/2023 Abstract [facility] [address] [place] [address] Jorge A Joe, DPM FACFAS [address] [facility] [place] [address] Social History Tobacco Use Types Packs/Day Years [...] on filedocumented in this encounter Care Teams Loan Teller Relationship Specialty Start Date End Date Vashti Engle MD PCP - General Family Medicine 12/25/22 documented as of this encounter
--- OUTSIDE RECORDS SUMMARY | 2025-04-30 08:15 | XMS_ITS | Encounter Summary ---
Author Organization [employer] Address [id number] [address] [place] [address] Care Team Providers Care Compressor Station Operator Name Role Phone Vashti Engle MD Primary Care Provider [phone] Encounter Details Date Type Department Care Team (Late st Contact Info) Description 01/22/2024 Orders Only [facility] [address] [place] [address] Greer Su MD [address], [facility] [address] [place] [address] Social History Tobacco Use Types Packs/Day Years [...] on filedocumented in this encounter Care Teams Compressor Station Operator Relationship Specialty Start Date End Date Vashti Engle MD [address] [place] [address] PCP - General Family Medicine 11/29/23 documented as of this encounter
--- OUTSIDE RECORDS SUMMARY | 2025-04-30 08:15 | XMS_ITS | Clinical Summary ---
Author Organization [facility] Address [address], [address] [place] [address] Care Team Providers Care Golf Coach Name Role Phone Unavailable Primary Care Provider [...]
--- OUTSIDE RECORDS SUMMARY | 2025-04-30 08:15 | XMS_ITS | Encounter Summary ---
Author Organization [employer] Address [id number] [address] [place] [address] Care Team Providers Care Dry Wall Installations Mechanic Name Role Phone Vashti Engle MD Primary Care Provider [phone] Encounter Details Date Type Department Care Team (Late st Contact Info) Description 01/03/2024 Orders Only [facility] [address] [place] [address] Greer Su MD [address], [facility] [address] [place] [address] Social History Tobacco Use Types Packs/Day Years [...] on filedocumented in this encounter Care Teams Dry Wall Installations Mechanic Relationship Specialty Start Date End Date Vashti Engle MD [address] [place] [address] PCP - General Family Medicine 11/29/23 documented as of this encounter
--- OUTSIDE RECORDS SUMMARY | 2025-04-30 08:15 | XMS_ITS | Encounter Summary ---
Author Organization [facility] Address [address] [place] [address] Care Team Providers Care Refractive Surgeon Name Role Phone Vashti Engle MD Primary Care Provider [phone] Encounter Details Date Type Department Care Team (Late st Contact Info) Description 12/27/2023 Orders Only [facility] [address] [place] [address] Samuel Georges MD [address] [place] [address] Social History Tobacco Use Types Packs/Day Years [...] on filedocumented in this encounter Care Teams Refractive Surgeon Relationship Specialty Start Date End Date Vashti Engle MD PCP - General Family Medicine 12/25/22 documented as of this encounter
--- OUTSIDE RECORDS SUMMARY | 2025-04-30 08:15 | XMS_ITS | Clinical Summary ---
Author Organization [employer] Address [id number] [address] [place] [address] Care Team Providers Care Exterior Interior Specialist Name Role Phone Vashti Engle MD Primary Care Provider [phone] Allergies No known active allergies Medications atorvastatin [...] Medical Devices Not on file Insurance MEDICARE [facility] Care Teams Exterior Interior Specialist Relationship Specialty Start Date End Date Vashti Engle MD [address] [place] [address] PCP - General Family Medicine 11/29/23
--- OUTSIDE RECORDS SUMMARY | 2025-04-30 08:15 | XMS_ITS | Encounter Summary ---
Author Organization [facility] Address [address] [place] [address] Care Team Providers Care International Account Manager Name Role Phone Vashti Engle MD Primary Care Provider [phone] Encounter Details Date Type Department Care Team (Late st Contact Info) Description 01/10/2024 Clinisync Result Encounter [facility] External Department Unsolicited Greer Su MD [address], [place] [id number] Social History Tobacco Use Types Packs/Day Years [...] EDT Narrative 01/10/2024 11:00 AM EDT The [address] [address] Vein Report Signed Patient: KAMI FINK MR#: [id number] : 1950 Acct:[id number] Age/Sex: 73 / F ADM Date: 01/10/24 Loc: VC Attending Dr: Greer Su M.D. Ordering Physician: Greer Su M.D. Date of Service: 01/10/24 Procedure(s): VC SEGMENTAL PRESSURES Accession Number(s): [id number] cc: Vashti Engle M.D.; Greer Su M.D. [place] [address] Patient Name: KAMI FINK MRN: [id number] date: 1950 Sex: F Assigned Patient Location: Current Patient Location: VC Accession/Order Number: [id number] Exam Date: 01/10/2024 08:04 Report Date: 01/10/2024 10:57 At the request of: GREER SU Procedure: VC SEGMENTAL PRESSURES EXAM: VC SEGMENTAL PRESSURES HISTORY: I73.9 , left leg ulcer COMPARISON: None. FINDINGS: Segmental pressures presented as follows (right, left) in mmHg. Brachial: 155, 163 Upper thigh: 187, 178 Lower thigh: 203, 167 Calf: 230, 170 DPA: 204, 161 TRANSPLANT NURSE PRACTITIONER: 207, 214 1st Toe: 106, 121 ELVIN: [...] Signed By: 01/10/24 1100 DD/ 1057 TD/TT: Staff Educator: Procedure Note Radiology, Radiologist, MD - 01/10/2024 [place] [address] Vein Report Signed Patient: KAMI FINK JMR#: [id number] : 1950cct:[id number] Age/Sex: 73 / FADM Date: 01/10/24 Loc: VC Attending Dr: Greer Su M.D. Ordering Physician: Greer Su M.D. Date of Service: 01/10/24 Procedure(s): VC SEGMENTAL PRESSURES Accession Number(s): [id number] cc: Vashti Engle M.D.; Greer Su M.D. The [place] [id number] Patient Name: KAMI FINK MRN: [id number] date: 1950 Sex: F Assigned Patient Location: Current Patient Location: VC Accession/Order Number: [id number] Exam Date: 01/10/2024 08:04 Report Date: 01/10/2024 10:57 At the request of: GREER SU Procedure: VC SEGMENTAL PRESSURES EXAM: VC SEGMENTAL PRESSURES HISTORY: I73.9 , left leg ulcer COMPARISON: None. FINDINGS: Segmental pressures presented as follows (right, left) in mmHg. Brachial: 155, 163 Upper thigh: 187, 178 Lower thigh: 203, 167 Calf: 230, 170 DPA: 204, 161 TRANSPLANT NURSE PRACTITIONER: 207, 214 1st Toe: 106, 121 ELVIN: [...] M.D. Signed By:01/10/24 1100 DD/ 1057 TD/TT: Staff Educator: [facility] Georges MUJICA IMG XR PROCEDURES Final Resu lt documented in this encounter Visit Diagnoses Not on filedocumented in this encounter Care Teams International Account Manager Relationship Specialty Start Date End Date Vashti Engle MD PCP - General Family Medicine 12/25/22 documented as of this encounter
--- OUTSIDE RECORDS SUMMARY | 2025-04-30 08:15 | XMS_ITS | Encounter Summary ---
Author Organization [facility] Address [address], [address] [place] [address] Care Team Providers Care Book Trimmer Name Role Phone Unavailable Primary Care Provider Unavailabl e Reason for Referral * Imaging (Routine) - Pending Review Specialty Diagnoses / Procedures Referred By Eugenia t Referred To Contact Cardiology Diagnoses Pre-operative clearance Leg edema Paroxysmal atrial fibrillation (HCC) Procedures Echo (TTE) complete (PRN contrast/bubble/strain/3D) MO ECHO TTHRC R-T 2D W/WOM-MODE COMPL SPEC&COLR D MO TTE W OR WO FOL WCON,DOPPLER Kemi Mata MD [address] [facility] [id number] MS:[place] [address] Phone: tel: fax: Referral ID Status Reason Start Date Expiration Date V isits Requested Visits Authorized [id number] Pending Review 11/16/2024 11/14/2025 1 1 Encounter Details Date Type Department Care Team (Late st Contact Info) Description 11/14/2024 Transcribe Orders Alfredo Pre Access [address] [place] [id number] Kemi Mata MD [address] [facility] [id number] MS:[place] [address] Pre-operative clearance (Primary Dx); Leg edema; Paroxysmal [...] 100 % [facility] LA Minor [place] 6.4 cm [facility] LA Major [place] 6.2 cm [facility] LA Area [...] MV E Wave Deceleration Time 197.0 ms [facility] MV E Velocity 1.18 m/s [facility] PV Max Velocity 0.8 m/s [facility] PV Peak Gradient 3 mmHg [facility] RV Basal Dimension 3.0 cm [facility] TAPSE 1.7 >=1.7 cm [facility] Body Surface Area 2.02 m2 [facility] Fractional Shortening 2D 20 28 - 44 % [facility] LV ESV Index A4C 14 mL/m2 [facility] LV EDV Index A4C 28 mL/m2 [facility] LV ESV Index A2C 13 mL/m2 [facility] LV EDV Index A2C 29 mL/m2 [facility] LVIDd Index 2.31 cm/m2 [facility] LVIDs Index 1.85 cm/m2 [facility] LV RWT Ratio 0.44 [facility] LV Mass 2D 164.0(A) 67 - 162 g [facility] LV Mass 2D Index 84.1 43 - 95 g/m2 [facility] E/E' Lateral 9.75 [facility] LA Volume Index BP 40(A) 16 - 34 ml/m2 [facility] LA Volume Index MOD A2C 40(A) 16 - 34 ml/m2 [facility] LA Volume Index MOD A4C 39(A) 16 - 34 ml/m2 [facility] Aortic Sinus Valsalva Index 1.59 cm/m2 [facility] AV Velocity Ratio 0.60 [facility] LVOT:AV VTI Index 0.74 [facility] Est. RA Pressure 3 mmHg [facility] EF Physician 55 % [facility] Anatomical Region Laterality Modality Echocardiography [...]
--- OUTSIDE RECORDS SUMMARY | 2025-04-30 08:16 | XMS_ITS | Encounter Summary ---
Author Organization [facility] Address [id number] [address] [place] [address] Care Team Providers Care Telemarketing Representative Name Role Phone Vashti Engle MD Primary Care Provider [phone] Encounter Details Date Type Department Care Team (Late st Contact Info) Description 12/03/2023 Orders Only [facility] [employer] [address] [facility] [place] [address] Transcribe, Orders Support User Pain [...] pain documented in this encounter Care Teams Telemarketing Representative Relationship Specialty Start Date End Date Vashti Engle MD [address] [place] [address] PCP - General Family Medicine 11/29/23 documented as of this encounter
--- OUTSIDE RECORDS SUMMARY | 2025-04-30 08:16 | XMS_ITS | Patient Health Record ---
Author Organization [facility] Address [address] [place] [address] Care Team Providers Care Doctor Of Nurse Anesthesia Practice Name Role Phone Vashti Engle M.D. Primary Care Provider Unavail able Austin Perez Unavailable [phone] Jesus Stinson Unavailable [phone] Donovan, Kara Unavailable [phone] Bella Yarbrough Unavailable [phone] Allergies No Known Allergies Results Component Value Reference Range Notes Basic Metabolic Profile Reviewed date:11/24/2024 12:13:46 PM Interpretation: Performing Lab: Notes/Report: missed 2 times 11/23/2024 05:40:48 EDT ss [address] [address] Sodium Lvl 135 133-142 mmol/L Potassium Lvl 4.2 3.4-4.8 mmol/L Chloride 105 98-110 mmol/L CO2 25 22-32 mmol/L Anion Gap 5 4-12 Glucose Lvl 100 70-99 mg/dL BUN 20 8-26 mg/dL Creatinine Lvl 0.83 0.44-1.03 mg/dL BUN Crea Ratio 24.1 10.0-20.0 ratio Calcium Lvl 8.7 8.6-10.3 mg/dL .eGFR Reviewed date:11/24/2024 12:13:46 PM Interpretation: Performing Lab: Notes/Report: [address] [address] Estimated GFR >60 >=60 mL/min/1.73m? max = indicates the maximum of SCr/? or 1 Stage 3a Mild to moderate loss of kidney function 59 to 45 min = indicates the minimum of SCr/? or 1 Abbreviations/Units: Stage 3b Moderate to severe loss of kidney function 44 to 33 eGFR = 142 X min(SCr/?, 1)? X max(SCr /?, 1)-1.200 X 0.9938Age X 1.012 [if female] Age = years SCr (standardized serum creatinine) = mg/dL eGFR (estimated glomerular filtration rate) = mL/min/1.73 m2 Stage 5 Kidney failure Less than 15 Stage 4 Severe loss of kidney function 29 to 15 ? = -0.241 (females) or -0.302 (males) Stages of Chronic Kidney Disease GFR GFR calculated using the CKD-Epi Creatinine Equation (2020): [facility] have implemented the eGFR calculation approach that does not have a coefficient for race and that conforms to the NKF-ASN Task Force Recommendations. ? = 0.7 (females) or 0.9 (males) Hgb Reviewed date:11/24/2024 12:13:46 PM Interpretation: Performing Lab: Notes/Report: [place] [address] Hgb 11.5 12.0-16.0 g/dL Hct 35.4 36.0-46.0 % Basic Metabolic Profile Reviewed date:11/24/2024 12:13:46 PM Interpretation: Performing Lab: Notes/Report: [place] [address] Sodium Lvl 135 133-142 mmol/L Potassium Lvl 4.2 3.4-4.8 mmol/L Chloride 102 98-110 mmol/L CO2 25 22-32 mmol/L Anion Gap 8 4-12 Glucose Lvl 101 70-99 mg/dL BUN 17 8-26 mg/dL Creatinine Lvl 0.87 0.44-1.03 mg/dL BUN Crea Ratio 19.5 10.0-20.0 ratio Calcium Lvl 8.6 8.6-10.3 mg/dL .eGFR Reviewed date:11/24/2024 12:13:46 PM Interpretation: Performing Lab: Notes/Report: [place] [address] Estimated GFR >60 >=60 mL/min/1.73m? ? = -0.241 (females) or -0.302 (males) Stage 5 Kidney failure Less than 15 [facility] have implemented the eGFR calculation approach that does not have a coefficient for race and that conforms to the NKF-ASN Task Force Recommendations. eGFR (estimated glomerular filtration rate) = mL/min/1.73 m2 max = indicates the maximum of SCr/? or 1 Stages of Chronic Kidney Disease GFR ? = 0.7 (females) or 0.9 (males) Stage 4 Severe loss of kidney function 29 to 15 GFR calculated using the CKD-Epi Creatinine Equation (2020): Stage 3b Moderate to severe loss of kidney function 44 to 33 Abbreviations/Units: min = indicates the minimum of SCr/? or 1 Stage 3a Mild to moderate loss of kidney function 59 to 45 Age = years eGFR = 142 X min(SCr/?, 1)? X max(SCr /?, 1)-1.200 X 0.9938Age X 1.012 [if female] SCr (standardized serum creatinine) = mg/dL Hgb Reviewed date:11/24/2024 12:13:53 PM Interpretation: Performing Lab: Notes/Report: [address] [address] Hgb 12.1 12.0-16.0 g/dL Hct 35.5 36.0-46.0 % .eGFR Reviewed date:11/24/2024 12:13:53 PM Interpretation: Performing Lab: Notes/Report: [address] [address] Estimated GFR 55 >=60 mL/min/1.73m? Stage 3a Mild to moderate loss of kidney function 59 to 45 [facility] have implemented the eGFR calculation approach that does not have a coefficient for race and that conforms to the NKF-ASN Task Force Recommendations. ? = 0.7 (females) or 0.9 (males) SCr (standardized serum creatinine) = mg/dL eGFR (estimated glomerular filtration rate) = mL/min/1.73 m2 max = indicates the maximum of SCr/? or 1 eGFR = 142 X min(SCr/?, 1)? X max(SCr /?, 1)-1.200 X 0.9938Age X 1.012 [if female] GFR calculated using the CKD-Epi Creatinine Equation (2020): Age = years Stage 5 Kidney failure Less than 15 Stage 4 Severe loss of kidney function 29 to 15 Abbreviations/Units: Stages of Chronic Kidney Disease GFR ? = -0.241 (females) or -0.302 (males) min = indicates the minimum of SCr/? or 1 Stage 3b Moderate to severe loss of kidney function 44 to 33 Basic Metabolic Profile Reviewed date:11/24/2024 12:13:53 PM Interpretation: Performing Lab: Notes/Report: [address] [address] Sodium Lvl 137 133-142 mmol/L Potassium Lvl 4.3 3.4-4.8 mmol/L Chloride 106 98-110 mmol/L CO2 24 22-32 mmol/L Anion Gap 7 4-12 Glucose Lvl 160 70-99 mg/dL BUN 21 8-26 mg/dL Creatinine Lvl 1.05 0.44-1.03 mg/dL BUN Crea Ratio 20.0 10.0-20.0 ratio Calcium Lvl 8.8 8.6-10.3 mg/dL XR Knee 1 or 2 Views Left Reviewed date:11/24/2024 12:13:53 PM Interpretation: Performing Lab: Notes/Report: Patient Name: Linda Fink EXAM: XR Knee 1 or 2 Views Left Surgery Scheduling Reviewed date:11/26/2024 02:32:09 PM Interpretation: Performing Lab: Notes/Report: Primary Insurance Company: Medicare Surgeon/Assist: Austin Perez MD Surgery Location: [facility] Surgery Date & Time: November 21, 2024 Procedure: Left Total Knee Arthroplasty Special Equipment: Kumar Persona Prima ry& Revision Components Diagnosis: Left Knee Pain/OA Admission Type: inpatient Anesthesia Type/CPNB: General Bed 72 hr Lab Location: [facility] Welder: Ingris Curiel Physician: Vashti Engle Hgb Reviewed date:11/24/2024 12:13:46 PM Interpretation: Performing Lab: Notes/Report: [address] [address] Hgb 10.7 12.0-16.0 g/dL Hct 31.9 36.0-46.0 % Basic Metabolic Profile Reviewed date:12/02/2024 02:47:29 PM Interpretation: Performing Lab: Notes/Report: [address] [address] Sodium Lvl 136 133-142 mmol/L Potassium Lvl 4.1 3.4-4.8 mmol/L Chloride 105 98-110 mmol/L CO2 26 22-32 mmol/L Anion Gap 5 4-12 Glucose Lvl 109 70-99 mg/dL BUN 15 8-26 mg/dL Creatinine Lvl 0.96 0.44-1.03 mg/dL BUN Crea Ratio 15.6 10.0-20.0 ratio Calcium Lvl 8.8 8.6-10.3 mg/dL .eGFR Reviewed date:12/02/2024 02:47:29 PM Interpretation: Performing Lab: Notes/Report: [address] [address] Estimated GFR >60 >=60 mL/min/1.73m? Stage 3a Mild to moderate loss of kidney function 59 to 45 SCr (standardized serum creatinine) = mg/dL Stages of Chronic Kidney Disease GFR Stage 5 Kidney failure Less than 15 Stage 4 Severe loss of kidney function 29 to 15 ? = -0.241 (females) or -0.302 (males) eGFR (estimated glomerular filtration rate) = mL/min/1.73 m2 Abbreviations/Units: GFR calculated using the CKD-Epi Creatinine Equation (2020): Age = years eGFR = 142 X min(SCr/?, 1)? X max(SCr /?, 1)-1.200 X 0.9938Age X 1.012 [if female] ? = 0.7 (females) or 0.9 (males) max = indicates the maximum of SCr/? or 1 min = indicates the minimum of SCr/? or 1 Stage 3b Moderate to severe loss of kidney function 44 to 33 [facility] have implemented the eGFR calculation approach that does not have a coefficient for race and that conforms to the NKF-ASN Task Force Recommendations. Hgb Reviewed date:12/02/2024 02:47:20 PM Interpretation: Performing Lab: Notes/Report: [address] [address] Hgb 10.2 12.0-16.0 g/dL Hct 30.6 36.0-46.0 % Hgb Reviewed date:12/02/2024 02:47:29 PM Interpretation: Performing Lab: Notes/Report: [address] [address] Hgb 10.9 12.0-16.0 g/dL Hct 32.8 36.0-46.0 % Basic Metabolic Profile Reviewed date:12/02/2024 02:47:20 PM Interpretation: Performing Lab: Notes/Report: [facility] [address] [place] [address] Sodium Lvl 137 136-145 mmol/L Potassium Lvl 4.1 3.4-4.8 mmol/L Chloride 104 98-107 mmol/L CO2 27 21-31 mmol/L Anion Gap 6 4-12 mmol/L Glucose Lvl 108 70-99 mg/dL BUN 15 7-25 mg/dL Creatinine Lvl 0.89 0.60-1.20 mg/dL BUN Crea Ratio 16.9 15.0-25.0 ratio Calcium Lvl 8.5 8.6-10.3 mg/dL .eGFR Reviewed date:12/02/2024 02:47:20 PM Interpretation: Performing Lab: Notes/Report: [facility] [address] [place] [address] Estimated GFR >60 >=60 mL/min/1.73m? Stage 1 Normal to mild loss of kidney function ? 90 Stage 5 Kidney failure < 15 eGFR = 142 X min(SCr/?, 1)? X max(SCr /?, 1)-1.200 X 0.9938Age X 1.012 [if female] SCr (standardized serum creatinine) = mg/dL min = indicates the minimum of SCr/? or 1 eGFR (estimated glomerular filtration rate) = mL/min/1.73 m2 Stages of Chronic Kidney Disease GFR Stage 3a Mild to moderate loss of kidney function 45 - 59 ? = -0.241 (females) or -0.302 (males) Age = years max = indicates the maximum of SCr/? or 1 GFR calculated using the CKD-Epi Creatinine Equation (2020): Stage 4 Severe loss of kidney function 15 - 29 Stage 3b Moderate to severe loss of kidney function 30 - 45 Abbreviations/Units: [facility] have implemented the eGFR calculation approach that does not have a coefficient for race and that conforms to the NKF-ASN Task Force Recommendations. ? = 0.7 (females) or 0.9 (males) Stage 2 Mild loss of kidney function 60 - 89 Reason For Referral Reason NO AUTH REQ...............................11/21/24.....................................MCR /AARP Left Total Knee Arthroplasty @ [facility] Diagnos is 1 Primary osteoarthritis of left knee (M17 .12) Diagnos is 2 Left knee pain (M25.562) Referra garnett [facility] Referri tomi Provide r First Name Austin krishna Provide r Last Name Chris krishna Provide r Special ity Orthopedic Surgery Referre d [facility]- Referre d Address [address] [place], [place],[address] 214,[place] Procedu re 1 Arthroplasty Knee Total Med/Lat Compartm ents ([address]) General Notes Ingris Virgen 10/31/2024 07:59:31 AM >, Aracelis Matias 10/31/2024 08:37:13 AM > MEDICARE PART A ACTIVE AND EFFECTIVE 04/15/13 AND PART B ACTIVE AND EFFECTIVE 02/13/14 PER [employer] WITH AARP SECONDARY. NO AUTHORIZATION REQUIRED. FAXED TO [facility].Param Kelly 10/31/2024 08:54:48 AM > Clifford garnett Priorit y Routine Medications Medication SIG (Take, Route, Frequency, Duration) Notes Start Date End Date Status Eliquis Active Eliquis 5 mg for 30 Days Activ e Imodium Active Lasix Active Metoprolol Succinate ER 100 mg TAKE 1 TABLET BY MOUTH ONCE DAILY for 90 Days Active Metoprolol Succinate ER 100 mg for 90 Days Active atorvastatin Active ciprofloxacin ophthalmic 0.3% for 7 Days Active diclofenac Active ciprofloxacin ophthalmic 0.3% PUT 1 TO 2 DROPS IN AFFECTED EYE(S) EVERY 2 HRS. UP TO 8X'S PER DAY. FOR 2 DAYS; THEN 4 X'S DAILY FOR 5 DAYS IN BOTH EYES for 7 Days Active Pepcid Active potassium chloride A ctive traMADol Active verapamil Active Social History Tobacco Use: Social History Observation Description Date Details (start date - stop date) Never Smoker NA - NA AUDIT-C (Standard) Question Answer Notes Did you have a drink containing alcohol in the p ast year? No Points 0 Interpretation Negative Tobacco Control (Standard) Question Answer Notes Tobacco use: Nonsmoker Problems Problem Type SNOMED Code ICD Code Onset Dates Problem Status W/U Status Risk Notes Problem History of musculoskeletal operation (172572269) Aftercare following joint replacement surgery (Z47.1) Active confirmed Problem 278413348435953 Primary osteoarthritis, right shoulder (M19.011) Active confirmed Problem Osteoarthritis of knee (087089298) Primary osteoarthritis of left knee (M17.12) Active confirmed Problem 643134785750983 Primary osteoarthritis, left shoulder (M19.012) Active confirmed Problem 618641890 Closed fracture of left tibial plateau, initial encounter (S82.142A) Active confirmed Problem 054035260 Closed fracture of left tibial plateau with routine healing (S82.142D) Active confirmed Problem Artificial knee joint present (321838743000) Status post left knee replacement (Z96.652) Active confirmed Vital Signs Height 5'4 in 01/19/2025 Weight 205 lbs 01/19/2025 BMI 35.18 01/19/2025 Encounters Encounter Location Date Provider Diagnosis [facility] [address] [place] [address] 05/19/2024 Jesus Milad Closed fracture of left tibial plateau with routine healing S82.142D [facility] [address] [place] [address] 06/02/2024 Austin Perez Primary osteoarthrit is of left knee M17.12 and Closed fracture of left tibial plateau with routine healing S82.142D [facility] [address] [place] [address] 06/30/2024 Austin Perez Primary osteoarthrit is of left knee M17.12 [facility] [address] [place] [address] 11/17/2024 Austin Perez Primary osteoarthrit is of left knee M17.12 [facility] [address] [place], [place] [id number] 11/21/2024 Austin Perez Primary osteoarthrit is of left knee M17.12 [facility] [address] [place] [address] 12/04/2024 Bella Yarbrough Status post left kne e replacement Z96.652 and Aftercare following joint replacement surgery Z47.1 [facility] [address] [place] [address] 01/12/2025 Jesus Milad Pain in right should er M25.511 ; Primary osteoarthritis, right shoulder M19.011 ; Pain in left shoulder M25.512 and Primary osteoarthritis, left shoulder M19.[address] [facility] [address] [place] [address] 01/19/2025 Bella Linnea Status post left kne e replacement Z96.652 and Aftercare following joint replacement surgery Z47.1 [facility] [address] [place] [address] 01/26/2025 Rema Dempseycomb Primary osteoarthritis, left shoulder M19.012 and Primary osteoarthritis, right shoulder M19.011 [facility] [address] [place] [address] 05/05/2024 Jesus Stinson [facility] [address] [place] [address] 11/04/2024 Austin Perez Primary osteoarthrit is of left knee M17.12 ; Left knee pain M25.562 ; 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 ; Encounter for other preprocedural examination Z01.818 and Encounter for preprocedural cardiovascular examination Z01.810 Assessments Encounter Date Diagnosis (ICD Code) Assessment Notes Treatment Notes Treatment Clinical Notes Section Notes 05/19/2024 Closed fracture of left tibial plateau with routine healing (ICD-10 - S82.142D) 06/02/2024 Primary osteoarthritis of left knee (ICD-10 - M17.12) Left knee pain Left knee osteoarthritis Left knee lateral tibial plateau fracture 06/02/2024 Closed fracture of left tibial plateau with routine healing (ICD-10 - S82.142D) Left knee pain Left knee osteoarthritis Left knee lateral tibial plateau fracture 06/30/2024 Primary osteoarthritis of left knee (ICD-10 - M17.12) Left knee pain Left knee osteoarthritis Left knee lateral tibial plateau fracture malunion 11/04/2024 Left knee pain (ICD-10 - M25.562) 11/04/2024 Primary osteoarthritis of left knee (ICD-10 - M17.12) 11/17/2024 Primary osteoarthritis of left knee (ICD-10 - M17.12) Left knee pain Left knee posttraumatic arthritis 11/21/2024 Primary osteoarthritis of left knee (ICD-10 - M17.12) 12/04/2024 Aftercare following joint replacement surgery (ICD-10 - Z47.1) S/p left TKA 11/21/2024 12/04/2024 Status post left knee replacement (ICD-10 - Z96.652) S/p left TKA 11/21/2024 01/12/2025 Primary osteoarthritis, right shoulder (ICD-10 - M19.011) 01/12/2025 Pain in right shoulder (ICD-10 - M25.511) 01/19/2025 Aftercare following joint replacement surgery (ICD-10 - Z47.1) S/p left TKA 11/21/2024 01/19/2025 Status post left knee replacement (ICD-10 - Z96.652) S/p left TKA 11/21/2024 01/26/2025 Primary osteoarthritis, right shoulder (ICD-10 - M19.011) 01/26/2025 Primary osteoarthritis, left shoulder (ICD-10 - M19.012) 01/12/2025 Pain in left shoulder (ICD-10 - M25.512) 11/04/2024 Carrier or suspected carrier of Methicillin resistant Staphylococcus aureus (ICD-10 - Z22.322) 11/04/2024 Encounter for other preprocedural examination (ICD-10 - Z01.818) 01/12/2025 Primary osteoarthritis, left shoulder (ICD-10 - M19.012) 11/04/2024 Encounter for preprocedural cardiovascular examination (ICD-10 - Z01.810) 05/19/2024 Other Prior to her tibial plateau fracture she was planning to proceed with a knee replacement. She would like to meet with Dr. Perez for discussion and when possible would like to proceed with knee replacement. I have made the appropriate referral. She will follow-up with me on an as needed basis. Import medication 06/02/2024 Other Discussed treatment options with patient and family. Patient has had some interval healing of her fracture and callus formation. There is a portion of nonunion at the articular surface due to the mild displacement. There are no acute fractures on CAT scan. At this time she has failed to obtain relief with nonsurgical management. Her fracture appears to have sufficient healing that she could be a candidate for a total knee arthroplasty. Patient will work on obtaining medical clearance from her PCP. In the meantime she will continue to wear her T ROM brace. Continue ice and anti-inflammatory as needed for pain. Activity modification as needed for pain. Activity as tolerated. Continues her walker for ambulation. All questions and concerns were addressed. Patient was in agreement the treatment plan. We will plan to see the patient back in 2 to 3 months for repeat clinical and radiographic evaluation. Left knee pain Left knee osteoarthritis Left knee lateral tibial plateau fracture 06/30/2024 Other Discussed treatment options with patient. Patient does have severe degenerative changes of her left knee as well as deformity secondary to her fracture. She was given a left knee corticosteroid injection today to help with her pain. Continue ice and anti-inflammatory as needed for pain. Activity modification as needed for pain. Activity as tolerated. Continue to wear her brace as needed. All questions and concerns were addressed. Patient was in agree with treatment plan. Will plan to the patient back in 3 months for repeat clinical and radiographic evaluation. Left knee pain Left knee osteoarthritis Left knee lateral tibial plateau fracture malunion 11/17/2024 Other Discussed nonoperative and operative interventions with patient. Patient continues to have significant left knee pain despite nonsurgical management including ice, anti-inflammatori es, activity modification, home exercise program, physical therapy, injections, brace, and walker. Pain is affecting her ADLs and quality of life. Radiographs demonstrate end-stage osteoarthritis of the left knee with considerable deformity secondary to her prior tibial plateau fracture. Discussion was had with patient that she could benefit from a left total knee arthroplasty to assist with pain relief. Discussed procedure, risk, benefits, and alternatives including but not limited to bleeding, infection, neurovascular injury, hardware failure, fracture, stiffness, VTE, continued pain, need for additional surgery, and risk of anesthesia. Patient understood the risk and elected to proceed with surgery. Continue ice and anti-inflammatory as needed for pain. Activity modification as needed for pain. Activity as tolerated. Continue use her walker and brace as needed. All questions and concerns were addressed. Patient was in agreement with the treatment plan. This note will serve as clinical documentation for today's visit as well as H&P purposes. Left knee pain Left knee posttraumatic arthritis 12/04/2024 Other Discussed treatment options with patient and her daughter. At this time patient is doing very well. She is progressing well with therapy. Patient's flexion is already back to 95 degrees. Patient was encouraged to elevate leg with prop under heel to help get back to full extension. Patient to continue physical therapy and home exercises for any stretching and strengthening. May continue activity modification, rest, ice, elevation, and use of anti-inflammatori es as needed for pain control. Patient was in agreement with treatment plan. All questions and concerns were addressed at the time of the appointment. Will plan to see patient back in 6 weeks for repeat clinical and radiographic evaluation. Patient was encouraged to call the office with any questions or concerns. S/p left TKA 11/21/2024 01/12/2025 Other For her bilater al shoulder osteoarthritis she is interested in corticosteroid injections. 01/19/2025 Other Discussed treatment options with patient. At this time patient is doing very well and is advancing as expected. She is very happy with her progression and activity. She states she does get frustrated at times, but overall mobility has significantly improved since surgery. Patient to continue physical therapy and home exercises for any stretching and strengthening. Continue activity modification, rest, ice, elevation, and use of Tylenol as needed for pain control. Patient was in agreement treatment plan. All questions and concerns were addressed at the time of the appointment. Will plan to see patient back in 4 months for repeat clinical and radiographic evaluation. Patient was encouraged to call the office with any questions or concerns. S/p left TKA 11/21/2024 01/26/2025 Other We have discuss ed further treatments today. I did discuss that we could do glenohumeral joint injections today for her which she wants to do. We will follow-up otherwise as needed. Plan Of Treatment Pending Test Test Name Order Date Chest 2 views - [id number] 11/04/2024 PT/ INR - [id number] 11/04/2024 EKG 11/04/2024 CBC 11/04/2024 CMP 11/04/2024 MRSA (Bilateral Nares) PCR 11/04/2024 Home PT 03/24/2024 APTT 11/04/2024 UA with Reflex C & S 11/04/2024 CT KNEE LEFT WO CONTRAST 04/21/2024 SCC- KNEE 2 VIEW LEFT - 32787 01/07/2024 SCC- SHOULDER 3 VIEW RIGHT 17242 025 SCC- SHOULDER 3 VIEW LEFT 80377 01/13/20 RSS: KNEE LEFT NAVJOT AP,NAVJOT PA ,LEFT LAT,B [place]ISE - 81470 01661 11/17/2024 RSS: KNEE POST OP RIGHT 3V AP,[place], [place] [address] 01/19/2025 RSS: KNEE POST OP LEFT 3V AP,LAT, PATELL A [id number] 12/04/2024 RSS- PT- s/p total knee 2-3 x per week f or 6 weeks 11/04/2024 SCC- KNEE 2 VIEW LEFT - 22720 12/27/2023 SCC- KNEE 2 VIEW LEFT - 23277 04/21/2024 SCC- KNEE 2 VIEW LEFT - 57384 01/21/2024 SCC- KNEE 2 VIEW LEFT - 33663 02/18/2024 SCC- KNEE 2 VIEW LEFT - 19637 03/24/2024 Next Appt Details Provider Name:Austin Perez, 05/25/2025 10:30:00 AM, [address] [facility] , [place] [address], [place], [address], Insurance Providers Payer Name Payer Address Payer Phone Subscriber Number Group Number Insured Name Patient Relationship to Insured Coverage Start Date Coverage End Date [place] [address] [place] [address] [id number] LINDA FINK Self - patient is the insured [facility] SU[facility] [address] [place] [address] [id number] LINDA FINK Self - patient is the insured Medications Administered Medication Instructions Date of Administration Dosage Notes BUPIVACAINE 06/30/2024 2 mL BUPIVACAINE 01/12/2025 4 mL Depo-Medrol 01/12/2025 2 mL Depo-Medrol 01/26/2025 4 mL Kenalog 06/30/2024 1 mL lidocaine 06/30/2024 2 mL lidocaine 01/12/2025 4 mL lidocaine 01/26/2025 4 mL SENSORCAINE 0.5% 01/26/2025 4 mL Medical (General) History Medical History History ICD Code Atrial fibrillation Hypertension Surgical History Surgery Date(Month/Year) Left total knee replacement 11/21/2024
--- OUTSIDE RECORDS SUMMARY | 2025-04-30 08:16 | XMS_ITS | CCD ---
Author Organization [facility] CliniSysd Care Team Providers Care Job Checker Name Role Phone Wanye Mccallum Unavailable Jose Najera II Unavailable [phone] MD Katelynn Clark Primary Care Provider [phone] MD Jose Najera II Attending Provider DR [...] Care Provider Katelynn Clark MD Attending Provider [phone] Allergies Allergy Classification Reported Allergen(s) Allergy Type Date of Onset Reaction(s) Facility (6 sources) patient allergy list reviewed by nurse or physicia Propensity to adverse reactions 5 Comment:Done [employer] Other (6 sources) Allergies Reconciled Propensity to adverse reactions Unknown [employer] Other Medications Current Medications Medication Drug Class(es) [...] 31, 2021 2:03pm take 1 capsule by [facility] every six hours as needed acetaminophen 500 [...] 2:10pm docusate sodium 50 mg / sennosides, residential 8.6 mg oral tablet (3 sources) Start: [...] 10-06-2021 take 1 capsule by mo [facility] every twelve hours Cefadroxil 500 MG [...] 24 Sep, 2021 Active polyethylene glycol 3350 75187 mg powder for oral solution (12 sources) [...] lower limb ischemia ; Translations: [Atherosclerosis of [place] arteries of extremities with gangrene, left leg] [...] Range Facility Office Visiton 02-19-2025 Follow-up visit [id number] Kami Fink 1950 F Date Provider Department Center 02/19/2025 VICKEY POLLARD [facility] Family History Problem Relation Age of Onset Heart attack Mother Heart failure Father Coronary artery disease Sister Family Status - Relation Status Age at Mother Father Sister Level of Service:58193 [place] OFFICE/OUTPATIENT ESTABLISHED MOD MDM 30 MIN Reason for Visit and Comments: 2 month follow up [Other] Atrial Fibrillation [80] Hypertension [309340] Hyperlipidemia [182] Recent Echo [Other] Holter monitor [Other] MULLIGAN with being out in the heat [Other] [facility] 36on 12-12-2024 36 Vickey Mata MD Physician Signed 11/28/2024 Copy I reviewed with the patient 3 days Holter monitor and it shows A-fib all the time and her ventricular rate is mostly controlled, continue current management. Please inform the patient LVM to inform patient of Dr. Mata's findings and recommendation. [facility] XR KNEE LEFT (3 VIEWS)on XR KNEE [...] Jada Lopez MD 12/05/24 Final result Normal [facility] Comment on above: Order Comment: Post op left 3V AP, LAT, Patella 36on 11-28-2024 36 I reviewed with the patient 3 days Holter monitor and it shows A-fib all the time and her ventricular rate is mostly controlled, continue current management. Please inform the patient Normal [facility] .eGFRon 11-26-2024 GFR/1.73 sq M.predicted MDRD (S/P/Bld) [Vol rate/Area] mL/min/{1.73_m2} Normal >=60 [facility] Comment on above: Result Comment: [facility] Laboratories have implemented the eGFR [...] = years Performed By: #### E GFR ####[address] [address] Basic Metabolic Profileon Anion gap [Moles/Vol] 6 mmol/L Normal 4-12 [facility] Comment on above: Performed By: #### H GBHCT #### [address] [address] BUN Crea Ratio 16.9 ratio Normal 15.0-25.0 [facility] Comment on above: Performed By: #### H GBHCT #### [address] [address] Calcium [Mass/Vol] 8.5 mg/dL Low 8.6-10.3 [facility] Comment on above: Performed By: #### H GBHCT #### [address] [address] Chloride [Moles/Vol] 104 mmol/L Normal 98-107 [facility] Comment on above: Performed By: #### H GBHCT #### [address] [address] CO2 [Moles/Vol] 27 mmol/L Normal 21-31 [facility] Comment on above: Performed By: #### H GBHCT #### [address] [address] Creatinine [Mass/Vol] 0.89 mg/dL Normal 0.60-1.20 [facility] Comment on above: Performed By: #### H GBHCT #### [address] [address] Glucose [Mass/Vol] 108 mg/dL High 70-99 [facility] Comment on above: Performed By: #### H GBHCT #### [address] [address] Potassium [Moles/Vol] 4.1 mmol/L Normal 3.4-4.8 [facility] Comment on above: Performed By: #### H GBHCT #### [facility] [address] [place] [address] Sodium [Moles/Vol] 137 mmol/L Normal 136-145 [facility] Comment on above: Performed By: #### H GBHCT #### [facility] [address] [place] [address] Urea nitrogen [Mass/Vol] 15 mg/dL Normal 7-25 [facility] Comment on above: Performed By: #### H GBHCT #### [facility] [address] [place] [address] Cardiology Progress Noteon 0 11-26-2024 Cardiology Progress [...] diastolic function, mild LAE, mild MR, mild [place] ([facility]) Objective Vitals & Measurements T: 36.5 ?C [...] prophylaxis - Follow up with Dr. Barney, [facility] public relations studies director, after discharge 2. Hypertension - Continue verapamil [...] Roberto Riojas DO 11/26/24 06:44 EDT Normal [facility] Hgb & Hcton 11-26-2024 Hematocrit (Bld) [Volume fraction] 30.6 % Low 36.0-46.0 [facility] Comment on above: Performed By: #### H GBHCT #### [address] [address] Hemoglobin (Bld) [Mass/Vol] 10.2 g/dL Low 12.0-16.0 [facility] Comment on above: Performed By: #### H GBHCT #### [address] [address] Inpatient Clinical Summaryon 11-26-2024 Inpatient Clinical Summary [address] [address] [phone] [address] [phone] Clinical Summary Person Information Name: Kami Fink Age: 74 Years : 1950 Sex: Female PCP: Katelynn Clark MD Marital Status: Phone: PCP: Race: White Ethnicity: Not or Language: Icelandic Visit Id: Visit Reason: Surgery Speciality: Acuity: Enc Type: Inpatient Med Service: Orthopedics Arrival: 11/21/2024 13:18:45 Discharge: Dispo Type: Address: [address] [place] [phone] Preferred Communication Mode: Verbal Preferred Language: Icelandic Discharge Diagnosis: Atrial fibrillation, persistent; Current use [...] FREQUENCY ABLATI (more content not included)... Normal [facility] Orthopedic Progress Noteon 0 11-26-2024 Orthopedic Progress [...] dressing. Ortho stable for transfer back to [facility] once cleared by medicine Anticipate DC to ECF when arranged and medically stable Outpatient follow-up in 2 weeks Orders: oxyCODONE, 5 mg, Oral, Tab, q4hr, PRN moderate pain [4-6 on pain scale], First Dose: 11/21/24 18:04:00 EDT, Dispense From Location: [facility], 11/21/24 18:04:00 EDT oxyCODONE, 10 mg, Oral, Tab, q4hr, PRN severe pain [7-10 on pain scale], First Dose: 11/21/24 18:04:00 EDT, Dispense From Location: [facility], 11/21/24 18:04:00 EDT verapamil, 180 mg, Oral, Tab-ER, Daily, First Dose: 11/22/24 9:00:00 EDT, Dispense From Location: [facility], 11/21/24 18:06:00 EDT Electronically signed by Bella Yarbrough PA-C 11/26/24 07:17 EDT Patient care discussed with Bella Yarbrough PA-C. Agree with assessment and plan. Electronically signed by Luis Alberto Perez MD 11/27/24 13:55 EDT [facility] Progress Note-Nurseon 2024 Progress Note-Nurse Report called to [facility] at [facility] at 1445. All questions answered. Electronically signed by Dalila Adams 11/26/24 14:50 EDT [facility] .eGFRon 11-25-2024 GFR/1.73 sq M.predicted MDRD (S/P/Bld) [Vol rate/Area] mL/min/{1.73_m2} Normal >=60 [facility] Comment on above: Result Comment: [facility] Laboratories have implemented the eGFR [...] years Performed By: #### H GBHCT #### [facility] [address] [place] [address] Basic Metabolic Profileon BUN Crea Ratio 15.6 ratio Normal 10.0-20.0 [facility] Comment on above: Performed By: #### H GBHCT #### [address] [address] [place] [address] Creatinine [Mass/Vol] 0.96 mg/dL Normal 0.44-1.03 [facility] Comment on above: Performed By: #### H GBHCT #### [address] [address] [place] [address] Urea nitrogen [Mass/Vol] 15 mg/dL Normal 8-26 [facility] Comment on above: Performed By: #### H GBHCT #### [address] [address] Anion gap [Moles/Vol] 5 mmol/L Normal 4-12 [facility] Comment on above: Performed By: #### H GBHCT #### [address] [address] Calcium [Mass/Vol] 8.8 mg/dL Normal 8.6-10.3 [facility] Comment on above: Performed By: #### H GBHCT #### [address] [address] Chloride [Moles/Vol] 105 mmol/L Normal 98-110 [facility] Comment on above: Performed By: #### H GBHCT #### [address] [address] CO2 [Moles/Vol] 26 mmol/L Normal 22-32 [facility] Comment on above: Performed By: #### H GBHCT #### [address] [address] Glucose [Mass/Vol] 109 mg/dL High 70-99 [facility] Comment on above: Performed By: #### H GBHCT #### [address] [address] Potassium [Moles/Vol] 4.1 mmol/L Normal 3.4-4.8 [facility] Comment on above: Performed By: #### H GBHCT #### [address] [address] Sodium [Moles/Vol] 136 mmol/L Normal 133-142 [facility] Comment on above: Performed By: #### H GBHCT #### [address] [address] Hgb & Hcton 11-25-2024 Hematocrit (Bld) [Volume fraction] 32.8 % Low 36.0-46.0 [facility] Comment on above: Performed By: #### H GBHCT #### [address] [address] Hemoglobin (Bld) [Mass/Vol] 10.9 g/dL Low 12.0-16.0 [facility] Comment on above: Performed By: #### H [facility] #### [facility] [address] [place] [address] Orthopedic Progress Noteon 0 11-25-2024 Orthopedic Progress [...] Alberto Perez MD 11/25/24 20:16 EDT Normal [facility] Progress Note-Nurseon 2024 Progress Note-Nurse This nurse entered the room at 0610 patient resting heart rate 127, blood pressure 164/70, this nurse auscultated heart irregular rate and rhythm. This nurse messaged hospitalist, ordered EKG. EKG came back with Afib with RVR. Transfer to ICU ordered. This nurse gave report to INSURANCE ASSOCIATE Cosme Maradiaga. Electronically signed by Dakota Reagan 11/25/24 09:20 EDT Normal [facility] .eGFRon 11-24-2024 GFR/1.73 sq M.predicted MDRD (S/P/Bld) [Vol rate/Area] mL/min/{1.73_m2} Normal >=60 [facility] Comment on above: Result Comment: [facility] Laboratories have implemented the eGFR [...] = years Performed By: #### E GFR ####[address] [address] Basic Metabolic Profileon Anion gap [Moles/Vol] 8 mmol/L Normal 10-25 [facility] Comment on above: Performed By: #### C [id number] ####[address] [address] BUN Crea Ratio 19.5 ratio Normal 10.0-20.0 [facility] Comment on above: Performed By: #### C D:[id number] ####[address] [address] Calcium [Mass/Vol] 8.6 mg/dL Normal 8.6-10.3 [facility] Comment on above: Performed By: #### C D:[id number] ####[address] [address] Chloride [Moles/Vol] 102 mmol/L Normal 98-110 [facility] Comment on above: Performed By: #### C D:[id number] ####[address] [address] CO2 [Moles/Vol] 25 mmol/L Normal 22-32 [facility] Comment on above: Performed By: #### C D:[id number] ####[address] [address] Creatinine [Mass/Vol] 0.87 mg/dL Normal 0.44-1.03 [facility] Comment on above: Performed By: #### C D:[id number] ####[address] [address] Glucose [Mass/Vol] 101 mg/dL High 70-99 [facility] Comment on above: Performed By: #### C D:[id number] ####[address] [address] Potassium [Moles/Vol] 4.2 mmol/L Normal 3.4-4.8 [facility] Comment on above: Performed By: #### C D:[id number] ####[address] [address] Sodium [Moles/Vol] 135 mmol/L Normal 133-142 [facility] Comment on above: Performed By: #### C [id number] ####[address] [address] Urea nitrogen [Mass/Vol] 17 mg/dL Normal 8-26 [facility] Comment on above: Performed By: #### C [id number] ####[address] [address] Hgb & Hcton 11-24-2024 Hematocrit (Bld) [Volume fraction] 31.9 % Low 36.0-46.0 [facility] Comment on above: Performed By: #### H GBHCT ####[address] [place] [address] Hemoglobin (Bld) [Mass/Vol] 10.7 g/dL Low 12.0-16.0 [facility] Comment on above: Performed By: #### H GBHCT ####[address] [place] [address] Orthopedic Progress Noteon 0 11-24-2024 Orthopedic Progress [...] Continue to elevate lower extremity DVT prophylaxis Bievnenido Ochoa teds A.m. hemoglobin 11.5. Hemodynamically stable. [...] Alberto Perez MD 11/24/24 07:29 EDT Normal [facility] .eGFRon 11-23-2024 GFR/1.73 sq M.predicted MDRD (S/P/Bld) [Vol rate/Area] mL/min/{1.73_m2} Normal >=60 [facility] Comment on above: Result Comment: [facility] Laboratories have implemented the eGFR [...] years Performed By: #### H GBHCT #### [facility] [address] [place] [address] Basic Metabolic Profileon Anion gap [Moles/Vol] 5 mmol/L Normal 4-12 [facility] Comment on above: Order Comment: taina tomlinson 2 times 11/23/2024 05:40:48 EDT ss Performed By: #### C D:[id number] ####[facility] [place] [address] BUN Crea Ratio 24.1 ratio High 10.0-20.0 [facility] Comment on above: Order Comment: taina tomlinson 2 times 11/23/2024 05:40:48 EDT ss Performed By: #### C D:[id number] ####[address] [address] Calcium [Mass/Vol] 8.7 mg/dL Normal 8.6-10.3 [facility] Comment on above: Order Comment: taina tomlinson 2 times 11/23/2024 05:40:48 EDT ss Performed By: #### C [id number] ####[address] [address] Chloride [Moles/Vol] 105 mmol/L Normal 98-110 [facility] Comment on above: Order Comment: taina tomlinson 2 times 11/23/2024 05:40:48 EDT ss Performed By: #### C D:[id number] ####[address] [address] CO2 [Moles/Vol] 25 mmol/L Normal 22-32 [facility] Comment on above: Order Comment: taina tomlinson 2 times 11/23/2024 05:40:48 EDT ss Performed By: #### C D:[id number] ####[address] [address] Creatinine [Mass/Vol] 0.83 mg/dL Normal 0.44-1.03 [facility] Comment on above: Order Comment: taina tomlinson 2 times 11/23/2024 05:40:48 EDT ss Performed By: #### C D:[id number] ####[address] [address] Glucose [Mass/Vol] 100 mg/dL High 70-99 [facility] Comment on above: Order Comment: taina tomlinson 2 times 11/23/2024 05:40:48 EDT ss Performed By: #### C D:[id number] ####[address] [address] Potassium [Moles/Vol] 4.2 mmol/L Normal 3.4-4.8 [facility] Comment on above: Order Comment: taina tomlinson 2 times 11/23/2024 05:40:48 EDT ss Performed By: #### C D:[id number] ####[address] [address] Sodium [Moles/Vol] 135 mmol/L Normal 133-142 [facility] Comment on above: Order Comment: taina tomlinson 2 times 11/23/2024 05:40:48 EDT ss Performed By: #### C D:[id number] ####[address] [address] Urea nitrogen [Mass/Vol] 20 mg/dL Normal 8-26 [facility] Comment on above: Order Comment: taina tomlinson 2 times 11/23/2024 05:40:48 EDT ss Performed By: #### C D:[id number] ####[address] [address] Hgb & Hcton 11-23-2024 Hematocrit (Bld) [Volume fraction] 35.4 % Low 36.0-46.0 [facility] Comment on above: Performed By: #### H GBHCT ####[address] [address] Hemoglobin (Bld) [Mass/Vol] 11.5 g/dL Low 12.0-16.0 [facility] Comment on above: Performed By: #### H GBHCT ####[address] [address] Orthopedic Progress Noteon 0 11-23-2024 Orthopedic Progress [...] Alberto Perez MD 11/23/24 13:46 EDT Normal [facility] .eGFRon 11-22-2024 Estimated GFR 55 mL/min/1.73m? Low >=60 [facility] Comment on above: Result Comment: [facility] Laboratories have implemented the eGFR [...] years Performed By: #### H GBHCT #### [address] [address] Basic Metabolic Profileon Anion gap [Moles/Vol] 7 mmol/L Normal 4-12 [facility] Comment on above: Performed By: #### H GBHCT #### [address] [place] [address] BUN Crea Ratio 20.0 ratio Normal 10.0-20.0 [facility] Comment on above: Performed By: #### H GBHCT #### [address] [address] Calcium [Mass/Vol] 8.8 mg/dL Normal 8.6-10.3 [facility] Comment on above: Performed By: #### H GBHCT #### [address] [address] Chloride [Moles/Vol] 106 mmol/L Normal 98-110 [facility] Comment on above: Performed By: #### H GBHCT #### [address] [address] CO2 [Moles/Vol] 24 mmol/L Normal 22-32 [facility] Comment on above: Performed By: #### H GBHCT #### [address] [address] Creatinine [Mass/Vol] 1.05 mg/dL High 0.44-1.03 [facility] Comment on above: Performed By: #### H GBHCT #### [address] [address] Glucose [Mass/Vol] 160 mg/dL High 70-99 [facility] Comment on above: Performed By: #### H GBHCT #### [address] [address] Potassium [Moles/Vol] 4.3 mmol/L Normal 3.4-4.8 [facility] Comment on above: Performed By: #### H GBHCT #### [address] [address] Sodium [Moles/Vol] 137 mmol/L Normal 133-142 [facility] Comment on above: Performed By: #### H GBHCT #### [address] [address] Urea nitrogen [Mass/Vol] 21 mg/dL Normal 8-26 [facility] Comment on above: Performed By: #### H GBHCT #### [facility] [address] [place] [address] Hgb & Hcton 11-22-2024 Hematocrit (Bld) [Volume fraction] 35.5 % Low 36.0-46.0 [facility] Comment on above: Performed By: #### H GBHCT #### [facility] [address] [place] [address] Hemoglobin (Bld) [Mass/Vol] 12.1 g/dL Normal 12.0-16.0 [facility] Comment on above: Performed By: #### H GBHCT #### [address] [place] [address] Orthopedic Progress Noteon 0 11-22-2024 Orthopedic Progress [...] Alberto Perez MD 11/22/24 16:05 EDT Normal [facility] Consultation Note - Generico n 11-21-2024 Consultation [...] q6hr, PRN (more content not included)... Normal [facility] XR Knee 1 or 2 Views Lefton [...] Signed, Electronically Signed in Other Vendor System) [facility] 36on 11-19-2024 36 Regarding echo result from [...] cleared for surgery from cardiac standpoint. Normal [facility] Cardiac echo study Procedure Ordered By: Vero Delgado on 11-18-2024 Aortic Sinus Valsalva 3.1 cm [employer] Work Phone: Aortic Sinus Valsalva Index 1.59 cm/m2 [employer] Phone: AV Cusp Mmode 2 cm [employer] Phone: AV Mean Gradient 2 mmHg [employer] Phone: AV Mean Velocity 0.7 m/s [employer] Phone: AV Peak Gradient 4 mmHg [employer] Phone: AV Peak Velocity 1 m/s [employer] Phone: AV Velocity Ratio 0.6 [employer] Phone: AV VTI 18.5 cm [employer] Work Phone: Body surface area Derived from formula 2.02 m2 [employer] Work Phone: E/E' Lateral 9.75 [employer] Phone: EF BP 55 % 55 - 100 % [employer] Work Phone: EF Physician 55 % [employer] Work Phone: Est. RA Pressure 3 mmHg Bon [employer] Phone: Fractional Shortening 2D 20 % 28 - 44 % [employer] Work Phone: Interpretation and review of laboratory results Abnormal [employer] Phone: IVSd 1.1 cm Abnormal 0.6 - 0.9 cm [employer] Phone: LA Area 2C 24.4 cm2 [employer] Work Phone: LA Area 4C 23.9 cm2 [employer] Work Phone: LA Major Milroy 6.2 cm [employer] Phone: LA Minor Milroy 6.4 cm [employer] Work Phone: LA Volume BP 78 mL Abnormal 22 - 52 mL [employer] Work Phone: LA Volume Index BP 40 ml/m2 Abnormal 16 - 34 ml/m2 [employer] Work Phone: LA Volume Index MOD A2C 40 ml/m2 Abnormal 16 - 34 ml/m2 [employer] Work Phone: LA Volume Index MOD A4C 39 ml/m2 Abnormal 16 - 34 ml/m2 [employer] Work Phone: LA Volume MOD A2C 78 mL Abnormal 22 - 52 mL [employer] Phone: LA Volume MOD A4C 77 mL Abnormal 22 - 52 mL [employer] Phone: LV E' Lateral Velocity 12.1 cm/s [employer] Work Phone: LV EDV A2C 56 mL [employer] Work Phone: LV EDV A4C 55 mL [employer] Work Phone: LV EDV Index A2C 29 mL/m2 [employer] Work Phone: LV EDV Index A4C 28 mL/m2 [employer] Work Phone: LV Ejection Fraction A2C 55 % [employer] Work Phone: LV Ejection Fraction A4C 52 % [employer] Work Phone: LV ESV A2C 25 mL [employer] Work Phone: LV ESV A4C 27 mL [employer] Work Phone: LV ESV Index A2C 13 mL/m2 [employer] Work Phone: LV ESV Index A4C 14 mL/m2 [employer] Work Phone: LV Mass 2D 164 g Abnormal 67 - 162 g [employer] Work Phone: LV Mass 2D Index 84.1 g/m2 43 - 95 g/m2 [employer] Work Phone: LV RWT Ratio 0.44 [employer] Phone: LVIDd 4.5 cm 3.9 - 5.3 cm [employer] Work Phone: LVIDd Index 2.31 cm/m2 [employer] Phone: LVIDs 3.6 cm [employer] Phone: LVIDs Index 1.85 cm/m2 [employer] Phone: LVOT Mean Gradient 1 mmHg [employer] Phone: LVOT Peak Gradient 2 mmHg [employer] Phone: LVOT Peak Velocity 0.6 m/s Bon Se [employer] Phone: LVOT VTI 13.7 cm [employer] Phone: LVOT:AV VTI Index 0.74 [employer] Phone: LVPWd 1 cm Abnormal 0.6 - 0.9 cm [employer] Phone: MV E Velocity 1.18 m/s [employer] Phone: MV E Wave Deceleration Time 197 ms [employer] Phone: PV Max Velocity 0.8 m/s Bon [place] [facility] [employer] Phone: PV Peak Gradient 3 mmHg Bon Seco urs [employer] Phone: RV Basal Dimension 3 cm [employer] Phone: TAPSE 1.7 cm 1.7 cm Bon [employer] Work Phone: [facility] Work Phone: Cardiac echo study Procedure on [...] Image quality: adequate. No contrast was given. [facility] CV CPACS Radiology Study observation (narrative) [facility] [place] [employer] Office Visiton 11-14-2024 Follow-up visit [id number] Kami Fink 1950 F Date Provider Department Center 11/14/2024 [id number] Family History Problem Relation Age of Onset Heart attack Mother Heart failure Father Coronary artery disease Sister Family Status - Relation Status Age at Mother Father Sister Level of Service:66079 [place] OFFICE/OUTPATIENT NEW MODERATE MDM 45 MINUTES Reason for Visit and Comments: Atrial Fibrillation [80] New Patient [632] pre op clearance [Other] - Normal [facility] Urine Cultureon 11-06-2024 Bacteria identified Cx Nom (U) ORDERING PHYSICIAN LUIS ALBERTO PEREZ Urine Culture Results No Growth 2 Days PERFORMED BY: [place] [address] PATHOLOGIST [employer] MCKENZIE M.D. Normal [facility] Comment on above: Performed By: #### C UU #### [facility] [address] XR knee RT 2Von 11-02-2022 XR knee RT 2V [facility] [employer] Other XR knee RT 2V [facility] [employer] Other XR knee RT 2V 1111 [facility] [employer] Other XR knee RT 2V [address] [employer] Other XR knee RT 2V XRay Report [employer] Other XR knee RT 2V Signed [employer] Other XR knee RT 2V Patient: Kami Fink MR#: [id number] [place] [employer] Other XR knee RT 2V 31 [employer] Other XR knee RT 2V : 1950 Acct:[id number] [employer] Other XR knee RT 2V Age/Sex: 72 / F ADM Date: 11/02/22 [employer] Other XR knee RT 2V Loc: [facility] Room: Type: [facility] [employer] Other XR knee RT 2V Attending Dr: Jose Najera II, MD [employer] Other XR knee RT 2V Copies to: Jose Najera MD [employer] Other XR knee RT 2V Ordering Provider: Jose Najera MD [employer] Other XR knee RT 2V Date of Service: 11/02/22 [employer] Other XR knee RT 2V XR/XR knee RT 2V: History of total right knee replacement [employer] Other XR knee RT 2V RIGHT KNEE - 2 views N [employer] Other XR knee RT 2V CLINICAL HISTORY: Follow-up right TKA [employer] Other XR knee RT 2V COMPARISON: Right knee 01/18/2022 [employer] Other XR knee RT 2V FINDINGS: [employer] Other XR knee RT 2V No evidence of hardware complication or acute bony process. [employer] Other XR knee RT 2V XR/XR knee RT 2V [employer] Other XR knee RT 2V IMPRESSION: [employer] Other XR knee RT 2V NO EVIDENCE OF HARDWARE COMPLICATION. [employer] Other XR knee RT 2V Impression dictated by: Audie Mondragon Jr., D.OEdgard11/02/2022 3:18 PM [employer] Other XR knee RT 2V Dictation Location: [place] [address] [employer] Other XR knee RT 2V Transcribed By: PWS 11/02/22 Formerly [facility], 1928–1983 [employer] Other XR knee RT 2V Dictated By: Audie Mondragon Jr, DO 11/02/22 [facility] [employer] Other XR knee RT 2V Signed By: [employer] Other XR knee RT 2V 11/02/22 Formerly [facility], 1928–1983 [employer] Other Vital Signs Date Time Vital Sign Value Performing Clinician Facility 03-09-2025 13:35-0400 Body height 161.29 cm Katelynn Clark MD Work Phone: [facility] 03-09-2025 13:35-0400 Body mass index (BMI) [Ratio] 34.5 kg/m2 Katelynn Clark MD Work Phone: [facility] 03-09-2025 13:35-0400 Body weight 89.81 kg Katelynn Clark MD Work Phone: [facility] 03-09-2025 13:35-0400 Diastolic blood pressure 79 mm[Hg] Katelynn Clark MD Work Phone: [facility] 03-09-2025 13:35-0400 Heart rate 78 /min Katelynn Clark MD Work Phone: [facility] 03-09-2025 13:35-0400 Respiratory rate 14 /min Katelynn Clark MD Work Phone: [facility] 03-09-2025 13:35-0400 SaO2% (BldA) [Mass fraction] 97 % Katelynn Clark MD Work Phone: [facility] 03-09-2025 13:35-0400 Systolic blood pressure 124 mm[Hg] Katelynn Clark MD Work Phone: [facility] 12-30-2024 13:49-0400 Body height 161.29 cm Katelynn Clark MD Work Phone: [facility] 12-30-2024 13:49-0400 Body mass index (BMI) [Ratio] 34.9 kg/m2 Katelynn Clark MD Work Phone: [facility] 12-30-2024 13:49-0400 Body weight 90.71 kg Katelynn Clark MD Work Phone: [facility] 12-30-2024 13:49-0400 Diastolic blood pressure 69 mm[Hg] Katelynn Clark MD Work Phone: [facility] 12-30-2024 13:49-0400 Heart rate 76 /min Katelynn Clark MD Work Phone: [facility] 12-30-2024 13:49-0400 Systolic blood pressure 117 mm[Hg] Katelynn Clark MD Work Phone: [facility] 11-18-2024 11:01-0400 Body height 162.5 cm Vickey Mata MD Work Phone: [facility] 11-18-2024 11:01-0400 Body mass index (BMI) [Ratio] 34.18 kg/m2 Vickey Mata MD Work Phone: [facility] 11-18-2024 11:01-0400 Body weight 90.27 kg Vickey Mata MD Work Phone: [facility] 11-03-2024 13:02-0400 Body height 161.29 cm [facility] 11-03-2024 13:02-0400 Body mass index (BMI) [Ratio] 34.7 kg/m2 [facility] 11-03-2024 13:02-0400 Body weight 90.26 kg [facility] 11-03-2024 13:02-0400 Diastolic blood pressure 80 mm[Hg] [facility] 11-03-2024 13:02-0400 Heart rate 88 /min [facility] 11-03-2024 13:02-0400 Systolic blood pressure 147 mm[Hg] [facility] 05-30-2024 10:57-0500 Body height 161.29 cm [facility] 05-30-2024 10:57-0500 Body mass index (BMI) [Ratio] 35 kg/m2 [facility] 05-30-2024 10:57-0500 Body weight 91.17 kg [facility] 05-30-2024 10:57-0500 Diastolic blood pressure 76 mm[Hg] [facility] 05-30-2024 10:57-0500 Heart rate 66 /min [facility] 05-30-2024 10:57-0500 Systolic blood pressure 116 mm[Hg] [facility] 02-28-2024 08:47-0400 Body height 162.6 cm Greer Su MD Work Phone: [facility] 02-28-2024 08:47-0400 Body mass index (BMI) [Ratio] 35.19 kg/m2 Greer Su MD Work Phone: [facility] 02-28-2024 08:47-0400 Body weight 92.99 kg Greer Su MD Work Phone: [facility] 02-28-2024 08:47-0400 Diastolic blood pressure 82 mm[Hg] Greer Su MD Work Phone: [facility] 02-28-2024 08:47-0400 Heart rate 94 /min Greer Su MD Work Phone: [facility] 02-28-2024 08:47-0400 SaO2% (BldA) [Mass fraction] 100 % Greer Su MD Work Phone: [facility] 02-28-2024 08:47-0400 Systolic blood pressure 118 mm[Hg] Greer Su MD Work Phone: [facility] 01-24-2024 08:52-0400 Body height 162.6 cm Greer Su MD Work Phone: [facility] 01-24-2024 08:52-0400 Body mass index (BMI) [Ratio] 34.84 kg/m2 Greer Su MD Work Phone: [facility] 01-24-2024 08:52-0400 Body weight 92.08 kg Greer Su MD Work Phone: [facility] 01-24-2024 08:52-0400 Diastolic blood pressure 91 mm[Hg] Greer Su MD Work Phone: [facility] 01-24-2024 08:52-0400 Heart rate 116 /min Greer Su MD Work Phone: [facility] 01-24-2024 08:52-0400 SaO2% (BldA) [Mass fraction] 99 % Greer Su MD Work Phone: [facility] 01-24-2024 08:52-0400 Systolic blood pressure 157 mm[Hg] Greer Su MD Work Phone: [facility] 01-03-2024 10:35-0400 Diastolic blood pressure 87 mm[Hg] Greer Su MD Work Phone: [facility] 01-03-2024 10:35-0400 SaO2% (BldA) [Mass fraction] 98 % Greer Su MD Work Phone: [facility] 01-03-2024 10:35-0400 Systolic blood pressure 145 mm[Hg] Greer Su MD Work Phone: [facility] 01-03-2024 10:33-0400 Body height 162.6 cm Greer Su MD Work Phone: [facility] 01-03-2024 10:33-0400 Body mass index (BMI) [Ratio] 34.84 kg/m2 Greer Su MD Work Phone: [facility] 01-03-2024 10:33-0400 Body weight 92.08 kg Greer Su MD Work Phone: [facility] 01-03-2024 10:33-0400 Heart rate 116 /min Greer Su MD Work Phone: [facility] 12-13-2023 14:51-0400 Body height 161.29 cm [facility] 12-13-2023 14:51-0400 Body mass index (BMI) [Ratio] 35.4 kg/m2 [facility] 12-13-2023 14:51-0400 Body weight 92.07 kg [facility] 10-15-2023 11:18-0400 Body height 161.29 cm MD Katelynn Clark Work Phone: [facility] 10-15-2023 11:18-0400 Body mass index (BMI) [Ratio] 36.6 kg/m2 MD Katelynn Clark Work Phone: [facility] 10-15-2023 11:18-0400 Body weight 95.36 kg MD Katelynn Clark Work Phone: [facility] 10-15-2023 11:18-0400 Diastolic blood pressure 81 mm[Hg] MD Katelynn Clark Work Phone: [facility] 10-15-2023 11:18-0400 Heart rate 77 /min MD Katelynn Clark Work Phone: [facility] 10-15-2023 11:18-0400 Systolic blood pressure 142 mm[Hg] MD Katelynn Clakr Work Phone: [facility] 09-13-2023 11:54-0500 Body height 161.29 cm MD Katelynn Clark Work Phone: [facility] 09-13-2023 11:54-0500 Body mass index (BMI) [Ratio] 37.8 kg/m2 MD Katelynn Clark Work Phone: [facility] 09-13-2023 11:54-0500 Body temperature 97.6 [degF] MD Katelynn Clark Work Phone: [facility] 09-13-2023 11:54-0500 Body weight 98.42 kg MD Katelynn Clark Work Phone: [facility] 09-13-2023 11:54-0500 Diastolic blood pressure 82 mm[Hg] MD Katelynn Clark Work Phone: [facility] 09-13-2023 11:54-0500 Heart rate 89 /min MD Katelynn Calrk Work Phone: [facility] 09-13-2023 11:54-0500 Respiratory rate 16 /min MD Katelynn Clark Work Phone: [facility] 09-13-2023 11:54-0500 SaO2% (BldA) [Mass fraction] 99 % MD Katelynn Clark Work Phone: [facility] 09-13-2023 11:54-0500 Systolic blood pressure 124 mm[Hg] MD Katelynn Clark Work Phone: [facility] 08-30-2023 10:41-0500 Body height 161.29 cm [facility] 08-30-2023 10:41-0500 Body mass index (BMI) [Ratio] 37.8 kg/m2 [facility] 08-30-2023 10:41-0500 Body weight 98.42 kg [facility] 08-30-2023 10:41-0500 Diastolic blood pressure 81 mm[Hg] [facility] 08-30-2023 10:41-0500 Heart rate 87 /min [facility] 08-30-2023 10:41-0500 Systolic blood pressure 155 mm[Hg] [facility] 08-23-2023 09:20-0500 Body height 161.29 cm Ny Jin Other [facility] [employer] Other 08-23-2023 09:20-0500 Body mass index (BMI) [Ratio] 37.48 kg/m2 Ny Jin Other [employer] [facility] [employer] Other 08-23-2023 09:20-0500 Body weight 97.52 kg Ny Jin Other [employer] Other 08-16-2023 10:00-0500 Body height 161.29 cm Katelynn Clark Other [facility] 08-16-2023 10:00-0500 Body mass index (BMI) [Ratio] 37.83 kg/m2 Katelynn Clark Other [employer] Other 08-16-2023 10:00-0500 Body weight 98.43 kg Katelynn Clark Other [employer] Other 08-16-2023 10:00-0500 Body weight 98.42 kg [facility] 08-16-2023 10:00-0500 Diastolic blood pressure 81 mm[Hg] Katelynn Clark Other [facility] 08-16-2023 10:00-0500 Systolic blood pressure 147 mm[Hg] Katelynn Clark Other [facility] 05-29-2023 11:30-0500 Body height 161.29 cm Katelynn Clark Other [facility] [employer] Other 05-29-2023 11:30-0500 Body mass index (BMI) [Ratio] 37.41 kg/m2 Katelynn Clark Other [employer] Other 05-29-2023 11:30-0500 Body weight 97.34 kg Katelynn Clark Other [employer] Other 05-29-2023 11:30-0500 Diastolic blood pressure 85 mm[Hg] Katelynn Clark Other [employer] Other 05-29-2023 11:30-0500 Respiratory rate 16 /min Katelynn Clark Other [employer] Other 05-29-2023 11:30-0500 Systolic blood pressure 174 mm[Hg] Katelynn Clark Other [employer] Other 03-15-2023 08:45-0400 Body height 161.29 cm Jose Dekalb II Other [employer] Other 03-15-2023 08:45-0400 Body mass index (BMI) [Ratio] 38.01 kg/m2 Jose Dekalb II Other [employer] Other 03-15-2023 08:45-0400 Body weight 98.88 kg Jose Reinaldo II Other [employer] Other 01-18-2023 11:15-0400 Body height 161.29 cm Katelynn Clark Other [employer] Other 01-18-2023 11:15-0400 Body mass index (BMI) [Ratio] 38.01 kg/m2 Katelynn Clark Other [employer] Other 01-18-2023 11:15-0400 Body weight 98.88 kg Katelynn Clark Other [employer] Other 01-18-2023 11:15-0400 Diastolic blood pressure 81 mm[Hg] Katelynn Clark Other [employer] Other 01-18-2023 11:15-0400 Systolic blood pressure 167 mm[Hg] Katelynn Clark Other [employer] Other 12-12-2022 13:45-0400 Body height 161.29 cm Katelynn Clark Other [employer] Other 12-12-2022 13:45-0400 Body mass index (BMI) [Ratio] 37.48 kg/m2 Katelynn Clark Other [employer] Other 12-12-2022 13:45-0400 Body weight 97.52 kg Katelynn Clark Other [employer] Other 12-12-2022 13:45-0400 Diastolic blood pressure 59 mm[Hg] Katelynn Clark Other [employer] Other 12-12-2022 13:45-0400 Systolic blood pressure 147 mm[Hg] Katelynn Clark Other [employer] Other 11-02-2022 15:45-0400 Body height 167.64 cm Jose Dekalb II Other [employer] Other 12-07-2021 11:45-0400 Body height 167.64 cm Jose Dekalb II Other [employer] Other 12-07-2021 11:45-0400 Body mass index (BMI) [Ratio] 34.7 kg/m2 Jose Dekalb II Other [employer] Other 12-07-2021 11:45-0400 Body weight 97.52 kg Jose Dekalb II Other [employer] Other 11-16-2021 11:45-0400 Body height 167.64 cm Jose Reinaldo II Other [employer] Other 11-16-2021 11:45-0400 Body mass index (BMI) [Ratio] 34.7 kg/m2 Jose Reinaldo II Other [employer] Other 11-16-2021 11:45-0400 Body weight 97.52 kg Jose Reinaldo II Other [employer] Other 10-06-2021 16:00-0400 Body height 167.64 cm Jose Dekalb II Other [employer] Other 10-06-2021 16:00-0400 Body mass index (BMI) [Ratio] 34.7 kg/m2 Jose Reinaldo II Other [employer] Other 10-06-2021 16:00-0400 Body weight 97.52 kg Jose Dekalb II Other [employer] Other 09-13-2021 16:15-0500 Body height 167.64 cm Wayne Mccallum Other [employer] Other 09-13-2021 16:15-0500 Body mass index (BMI) [Ratio] 34.7 kg/m2 Wayne Mccallum Other [employer] Other 09-13-2021 16:15-0500 Body weight 97.52 kg Wayne Mccallum Other [employer] Other Encounters Encounter Date Encounter Type Care Provider Facility Start: 03-09-2025 End: 03-09-2025 ambulatory Katelynn Clark MD Work Phone: [facility] Work Phone: Start: 03-09-2025 End: 03-09-2025 Patient encounter procedure Katelynn Clark MD -[facility] Work Phone: Start: 02-19-2025 End: 02-19-2025 ambulatory [facility] Start: 12-30-2024 End: 12-30-2024 Patient encounter procedure Katelynn Clark MD -[facility] Work Phone: Start: 12-04-2024 ambulatory LUIS ALBERTO [facility] Start: 11-21-2024 End: 11-26-2024 Evaluation and management of inpatient Tod Zacarias MD Facility:[facility] Start: 11-18-2024 End: 11-20-2024 ambulatory [facility] Start: 11-18-2024 Encounter for other preprocedural examination [facility] Start: 11-18-2024 End: 11-20-2024 Preoperative state Vickey Mata MD Work Phone: [facility] Work Phone: Start: 11-18-2024 End: 11-20-2024 Subsequent hospital visit by physician Vickey Mata MD Work Phone: [facility] Non-Invasive Cardiology Comment on above: Pre-operative cleara nce; Leg edema; Paroxysmal atrial fibrillation (HCC) Start: 11-14-2024 End: 11-14-2024 ambulatory [facility] Start: 11-14-2024 End: 11-14-2024 Encounter for other preprocedural examination [facility] Start: 11-13-2024 End: 11-13-2024 ambulatory Luis Alberto Perez MD Facility:[facility] Start: 11-06-2024 End: 11-06-2024 ambulatory NON STAFF [facility] Work Phone: Start: 11-06-2024 End: 11-06-2024 Departed Referred [facility] Path [facility] Start: 11-03-2024 End: 11-03-2024 ambulatory [facility] Work Phone: Start: 11-03-2024 End: 11-03-2024 Patient encounter procedure [facility] Work Phone: Start: 05-30-2024 End: 05-30-2024 ambulatory [facility] Work Phone: Start: 05-30-2024 End: 05-30-2024 Patient encounter procedure [facility] Work Phone: Start: 05-22-2024 Non-patient / Non-visit [facility] Work Phone: Start: 02-28-2024 End: 02-28-2024 Office [...] on above: Venous ulcer of left leg ([facility]-H[facility]) (Primary Dx) Start: 01-03-2024 End: 01-03-2024 Office outpatient new 45 minutes Greer Su MD Work Phone: [facility] Comment on above: 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 ([facility]-HCC) (Primary Dx); Abnormal ankle brachial index (ELVIN); Venous ulcer of left leg ([facility]-HCC) Start: 12-13-2023 End: 12-13-2023 ambulatory [facility] Work Phone: Start: 12-13-2023 End: 12-13-2023 Patient encounter procedure [facility] Work Phone: Start: 10-15-2023 End: 10-15-2023 ambulatory MD Katelynn Clark Work Phone: [facility] Work Phone: Start: 10-15-2023 End: 10-15-2023 Patient encounter procedure MD Katelynn Clark Work Phone: [facility] Work Phone: Start: 10-04-2023 End: 10-04-2023 ambulatory MD Katelynn Clark Work Phone: [facility] Work Phone: Start: 10-04-2023 End: 10-04-2023 Patient encounter procedure MD Katelynn Clark Work Phone: [facility] Work Phone: Start: 09-13-2023 End: 09-13-2023 Patient encounter procedure MD Katelynn Clark Work Phone: [facility] Start: 09-13-2023 End: 09-13-2023 Patient encounter procedure MD Katelynn Clark Work Phone: [facility] Work Phone: Start: 08-30-2023 End: 08-30-2023 ambulatory [facility] Work Phone: Start: 08-30-2023 End: 08-30-2023 Patient encounter procedure [facility] Work Phone: Start: 08-27-2023 End: 08-27-2023 ambulatory Ny Annabel Other [employer] Other Start: 08-27-2023 Telephone encounter Ny Jin [employer] Start: 08-23-2023 End: 08-23-2023 ambulatory Ny Jin Other [employer] Other Start: 08-23-2023 Office outpatient ne w 45 minutes Ny Jin [facility] Neuro[facility] Start: 08-16-2023 End: 08-16-2023 ambulatory Katelynn Clark Other [employer] Other Start: 08-16-2023 Office outpatient vi sit 15 minutes Katelynn Clark [facility] Start: 08-16-2023 Telephone encounter Katelynn Clark [facility] Start: 08-16-2023 End: 08-16-2023 Patient encounter procedure [facility]- Start: 08-13-2023 End: 08-13-2023 ambulatory Jose Najera II Other [employer] Other Start: 08-13-2023 Telephone encounter Jose Najera II [facility] Start: 07-03-2023 End: 07-03-2023 ambulatory Katelynn Clark Other [employer] Other Start: 07-03-2023 Telephone encounter Katelynn Clark [facility] Start: 06-27-2023 Patient encounter procedure [facility]- Start: 06-18-2023 End: 06-18-2023 ambulatory ANABELLA STEWART Not Available Start: 06-11-2023 End: 06-11-2023 ambulatory Katelynn Clark Other [employer] Other Start: 06-11-2023 Telephone encounter Katelynn Clark [facility] Start: 06-01-2023 End: 06-01-2023 ambulatory ANABELLA STEWART Not Available Start: 05-29-2023 End: 05-29-2023 ambulatory Katelynn Clark Other [employer] Other Start: 05-29-2023 Office outpatient vi sit 15 minutes Katelynn Clark [facility] Start: 05-29-2023 Telephone encounter Katelynn Clark [facility] Start: 05-14-2023 End: 05-14-2023 ambulatory Jose Dekalb II Other [employer] Other Start: 05-14-2023 Telephone encounter Jose Dekalb II [facility] Start: 04-02-2023 End: 04-02-2023 ambulatory Katelynn Clark Other [employer] Other Start: 04-02-2023 Telephone encounter Katelynn Clark [facility] Start: 03-15-2023 End: 03-15-2023 ambulatory Jose Reinaldo II Other [employer] Other Start: 03-15-2023 Office outpatient vi sit 25 minutes Jose Reinaldo II [facility] Start: 02-26-2023 End: 02-26-2023 ambulatory Katelynn Clark Other [employer] Other Start: 02-26-2023 Telephone encounter Katelynn Clark [facility] Start: 02-08-2023 End: 02-08-2023 ambulatory Jose Dekalb II Other [employer] Other Start: 02-08-2023 Office outpatient vi sit 25 minutes Jose Dekalb II [facility] Start: 01-19-2023 End: 01-19-2023 ambulatory Katelynn Clark Other [employer] Other Start: 01-19-2023 Telephone encounter Katelynn Clark [facility] Start: 01-18-2023 End: 01-18-2023 ambulatory Katelynn Clark Other [employer] Other Start: 01-18-2023 Office outpatient vi sit 15 minutes Katelynn Clark [facility] Start: 01-17-2023 End: 01-17-2023 ambulatory Jose Dekalb II Other [employer] Other Start: 01-17-2023 Telephone encounter Jose Dekalb II [facility] Start: 12-13-2022 End: 12-13-2022 ambulatory Katelynn Clark Other [employer] Other Start: 12-13-2022 Telephone encounter Jose Dekalb II [facility] Start: 12-12-2022 End: 12-13-[address] KATELYNN CLARK Facility: Start: 12-12-2022 Office outpatient vi sit 15 minutes Katelynn Clark [facility] Start: 11-02-2022 End: 11-02-2022 ambulatory Jose Reinaldo II Other [employer] Other Start: 11-02-2022 Office outpatient vi sit 25 minutes Jose Dekalb II [facility] Start: 10-10-2022 End: 10-10-2022 ambulatory Jose Dekalb II Other [employer] Other Start: 10-10-2022 Telephone encounter Jose Reinaldo II [facility] Start: 06-23-2022 End: 06-23-2022 ambulatory MD Katelynn Clark Work Phone: [facility] Work Phone: Start: 06-23-2022 End: 06-23-2022 Patient encounter procedure MD Katelynn Clark Work Phone: [facility] Start: 04-13-2022 End: 04-13-2022 ambulatory Jose Dekalb II Other [employer] Other Start: 04-13-2022 Telephone encounter Jose Dekalb II [facility] Start: 03-06-2022 End: 03-06-2022 ambulatory Wayne Mccallum Other [employer] Other Start: 03-06-2022 Office outpatient vi sit 15 minutes Wayne Mccallum [facility] Start: 01-18-2022 (Post-Op) Post-Op Jose Dekalb II [facility] Start: 01-18-2022 End: 01-18-2022 ambulatory Jose Dekalb II Other [employer] Other Start: 12-07-2021 (Post-Op) Post-Op Jose Reinaldo II [facility] Start: 12-07-2021 End: 12-07-2021 ambulatory Jose Dekalb II Other [employer] Other Start: 11-21-2021 Pre-procedure evalua tion check Jose Dekalb II Other [employer] Other Start: 11-16-2021 End: 11-16-2021 ambulatory Jose Reinaldo II Other [employer] Other Start: 11-16-2021 Office outpatient vi sit 15 minutes Jose Dekalb II [facility] Start: 10-14-2021 (Prolonged) Prolonge d Services Jose Dekalb II [facility] Start: 10-14-2021 End: 10-14-2021 ambulatory Jose Reinaldo II Other [employer] Other Start: 10-06-2021 End: 10-06-2021 ambulatory Jose Dekalb II Other [employer] Other Start: 10-06-2021 Office outpatient vi sit 25 minutes Jose Najera II [facility] Start: 09-13-2021 End: 09-13-2021 ambulatory Jose Najera II Other [employer] Other Start: 09-13-2021 Office outpatient vi sit 25 minutes Wayne Kerrymateo [facility] Start: 09-13-2021 Telephone encounter Jose Najera II [facility] Start: 08-09-2021 End: 08-09-2021 ambulatory Wayne Paynemateo Other [employer] Other Start: 08-09-2021 Telephone encounter Wayne Mccallum [facility] Start: 07-28-2021 End: 07-28-2021 ambulatory Wayne Mccallum Other [employer] Other Start: 07-28-2021 Office outpatient vi sit 15 minutes Wayne Mccallum [facility] Start: 06-27-2021 Adult health examination Renny Njaera II Other [employer] Other Start: 05-12-2021 Office outpatient vi sit 15 minutes Wayne Kerrymateo [facility] Procedures Date Procedure Procedure Detail Performing Clinician [...] Adult BMI Screening Adult BMI Screen ing [facility] Start: 01-23-2025 Tobacco Screening Tobacco Screening [facility] Start: 01-02-2025 Adult BMI Screening Adult BMI Screen ing [facility] Start: 01-02-2025 Tobacco Screening Tobacco Screening [facility] Start: 11-27-2024 COVID-19 Vaccine () COVID-19 Vaccine () [facility] [employer] [facility] Start: 11-18-2024 Annual Wellness Visi t (Medicare) Annual Wellness Visit (Medicare) [facility] Start: 11-06-2024 Urine culture [facility] Start: 11-06-2024 Bacteria identified in Urine by Culture Urine Culture [facility] Start: 03-16-2024 Influenza vaccination Influenza Vacc ine [facility] Start: 02-28-2024 End: 02-28-2024 Patient encounter procedure 02/28/2024 8:30 AM EDT Office Visit [facility] [address] [place] [address] Greer Su MD [address], [address] [address] [facility] Start: 01-24-2024 End: 01-24-2024 Patient encounter procedure 01/24/2024 9:20 AM EDT Office Visit [facility] [address] [place] [address] Greer Su MD [address], [address] [address] [facility] Start: 01-03-2024 End: 01-02-2025 US.doppler Extremity arteries - bilateral for physiologic artery study Vas art doppler lwr bilat mult lev/PVR Vascular Ultrasound Routine Abnormal ankle brachial index (ELVIN) Critical limb ischemia of left lower extremity with gangrene (CMS-HCC) Venous ulcer of left leg (CMS-HCC) Expected: 01/03/2024, Expires: 01/02/2025 [facility] Comment on above: Expected: 01/03/2024 , Expires: 01/02/2025 Start: 01-03-2024 End: 01-02-2025 US.doppler Lower extremity vein - bilateral Vas venous duplex insufficiency lwr bi Vascular Ultrasound Routine Abnormal ankle brachial index (ELVIN) Critical limb ischemia of left lower extremity with gangrene (CMS-HCC) Venous ulcer of left leg (CMS-HCC) Expected: 01/03/2024, Expires: 01/02/2025 [employer] Work Phone: Comment on above: Expected: 01/03/2024 , Expires: 01/02/2025 Start: 12-27-2023 COVID-19 Vaccine ( season) COVID-19 Vaccine ( season) [facility] Start: 10-15-2023 Patient referral [facility] Work Phone: Start: 05-18-2018 Pneumococcal 50+ yea rs Vaccine (2 of 2 - PPSV23) Pneumococcal 50+ years Vaccine (2 of 2 - PPSV23) [employer] Start: 2013 Fall Risk Screening Fall Risk Screen ing [facility] Start: 2003 Screening for osteoporosis DEXA (modify frequency per FRAX score) [facility] [facility] Start: 1998 Administration of varicella zoster vaccine Zoster (Shingles) Vaccine (1 of 2) [facility] Start: 1998 Shingles vaccine (1 of 2) Shingles vaccine (1 of 2) [facility] Start: 1967 DTaP,Tdap and Td Vaccines (1 - Tdap) DTaP,Tdap and Td Vaccines (1 - Tdap) [facility] Start: 1967 DTaP/Tdap/Td vaccine (1 - Tdap) DTaP/Tdap/Td vaccine (1 - Tdap) [facility] Start: 1966 Adult BMI Follow Up Plan Adult BMI Follow Up Plan [facility] Start: 1966 Hepatitis C screening Hepatitis C sc reen [facility] Start: 1960 Depression Screen Depression Screen [facility] Start: 1960 Depression Screening Depression Scre ening [facility] Start: 1948 Medicare Annual Well ness Visit Medicare Annual Wellness Visit [facility] Comprehensive metabo lic 2000 panel - Serum or Plasma [facility] MG Breast - bilatera l Screening [facility] Patient referral [facility] Work Phone: [facility] Immunizations Immunization Date Immunization Notes Care Provider Fa jaime 05-29-2023 influenza virus vaccine, unspecified formulation [facility] 05-29-2023 influenza, high dose seasonal, preservative-free Katelynn Clark Other [facility] [employer] Other 04-11-2021 COVID-19 mRNA, Comirnaty (Pfizer) MD Katelynn Clark Work Phone: [facility] 09-07-2020 COVID-19 mRNA, Comirnaty (Pfizer) MD Katelynn Clark Work Phone: [facility] 08-17-2020 COVID-19 mRNA, Comirnaty (Pfizer) MD Katelynn Clark Work Phone: [facility] 05-24-2020 Kenalog -40 mg Wayne Mccallum Other [facility] [employer] Other 03-31-2020 influenza virus vaccine, split virus (incl. purified surface antigen) Jose Najera II Other [employer] Other 03-31-2020 influenza virus vaccine, unspecified formulation [facility] 08-11-2019 Kenalog -40 mg Wayne Mccallum Other [employer] Other 11-04-2018 Kenalog -40 mg Wayne Payneer Other [employer] Other 03-19-2018 Supquincy Mccallum Other [employer] Other 03-12-2018 Theraputic Injection Wayne Mccallum Other [employer] Other 03-05-2018 Supquincy Mccallum Other [employer] Other 02-26-2018 Daya Mccallum Other [employer] Other 02-19-2018 Daya Mccallum Other [employer] Other 11-27-2017 Kenalog -40 mg Wayne Mccallum Other [employer] Other 05-31-2016 influenza virus vaccine, split virus (incl. purified surface antigen) Jose Dekalb II Other [employer] Other 05-31-2016 influenza virus vaccine, unspecified formulation [facility] 05-31-2016 pneumococcal polysaccharide vaccine, 23 valent Jose Dekalb II Other [facility] Payers Date Payer Category Payer Self-pay [id number] 2023 Medicare [id number] 2023 Unknown 2019 Medicare [id number] 2013 Medicare [id number] 1959 Medicare [id number] 2.1 [id number] 1959 Unknown [id number] 2.1 [id number] 1948 Unknown [id number] 2.16.84 [id number] 1948 Unknown [id number] 2.16.840 .[id number] 1948 Unknown [id number] 2.16.840 .[id number] 1948 Unknown [id number] 2.16.8 [id number] 1948 Unknown [id number] 2.16. [id number] 1948 Unknown [id number] 2.16. [id number] 1948 Unknown [id number] 2.16.8 [id number] 1948 Unknown [id number] 2.16.8 [id number] Unknown Karen BC/JM [id number] Unknown [id number] 2.16.8 [id number] Social History Date Type Detail Facility Unknown if ever smoked [employer] Other Start: 01-03-2024 End: 02-28-2024 Sex Assigned At [facility] Other Start: 10-26-2021 End: 07-13-2024 Tobacco smoking status NHIS Never smoked tobacco (finding) [facility] Start: 1950 Sex Assigned At Female [facility] Start: 05-30-2024 End: 11-14-2024 Sex Female (finding) [facility] Start: 01-03-2024 Tobacco use and exposure Smokeless tobacco [facility]-user [facility] Start: 01-03-2024 End: 08-15-2024 Alcoholic beverage intake Current drinker of alcohol (finding) [facility] Start: 01-03-2024 End: 02-28-2024 Alcoholic beverage intake [facility] Within the past 12 months we worried whether our food would run out before we got money to buy more. Never True [facility] Start: 1950 Sex assigned at Not on file P [employer] [facility] Tobacco smoking status [facility] Tobacco smoking consumption unknown [facility] Medical Equipment Procedure Code Equipment Code Equipment Origin al Text Equipment Identifier Dates Arthroplasty, knee, total, minimally invasive Orthopaedic cement, non-medicated [id number] FDA Start: 10-24-2021 Arthroplasty, knee, total, minimally invasive Uncoated knee femur prosthesis, metallic ()[id number] FDA Start: 10-24-2021 Arthroplasty, knee, total, minimally invasive Tibial insert [id number] FDA Start: 10-24-2021 Arthroplasty, knee, total, minimally invasive Polyethylene patella prosthesis ()[id number] FDA Start: 10-24-2021 Arthroplasty, knee, total, minimally invasive Knee stem ()[id number] FDA Start: 10-24-2021 Arthroplasty, knee, total, minimally invasive Uncoated knee tibia prosthesis, metallic ()[id number] FDA Start: 10-24-2021 Clinical Notes 05-12-2021 to 02-19-2025 Note Date & Type Note Facility 02-19-2025 Note [place] [facility] Note Reason for cardiology [...] drugs Family history her mother due to NH at age 69. Her father had congestive [...] monitor 11/18/2024 - 11/21/2024 Echo 11/19/2024 at [facility] in [place] Lower extremities Doppler study 01/10/2024 PVR waveforms: [...] Below knee: Mi (more content not included)... [facility] 12-30-2024 Evaluation note Diagnosis Onset Date Resolution [...] for breast cancer acute March 09 1:27pm [facility] Work Phone: [phone]) 824-170105-15-2025 NoteAdmission Information Patient is a 74-year-old female [...] Alberto Perez MD 11/27/24 13[facility] Chief Complaint Left knee pain Reason for Consultation: Medical change management director Provider: Dr. Perez Date of Consult: 11/21/2024 [...] reviewed other provider notes. Anticipated [facility] Patient follow-up with PCP, cardiology, orthopedics, [...] mg oral tablet, 40 (more content not included)...[facility]05-13-2025 NoteChief Complaint Left knee pain Reason for [...] ECG 11/05/24 - Saw Dr. Naz Barney, [facility] public relations studies director, in [place] > He noted she was completed asymptomatic > Ventricular rates were controlled due to preexisting treatment with metoprolol tartrate 100 mgBID and verapamil SR 180 mg daily - TTE completed preoperatively at [facility] on 11/18 --> normal LVEF with mild [...] diastolic function, mild LAE, mild MR, mild WA ([facility]) Physical Exam Vitals & Measurements T: 37 [...] rehab - Follow up with Dr. Barney, [facility] public relations studies director, after discharge 2. Hypertension - Continue verapamil [...] 180 mg= 1 tabs, (more content not included)...[facility]05-13-2025 NoteChief Complaint Left knee pain Reason for Consultation: Medical change management director Provider: Dr. Perez Date of Consult: 11/21/2024 [...] acetaminophen, 1000 mg, O (more content not included)...[facility]05-12-2025 NoteChief Complaint Left knee pain Reason for Consultation: Medical change management director Provider: Dr. Perez Date of Consult: 11/21/2024 [...] 75 mg oral c (more content not included)...[facility]05-11-2025 NoteChief Complaint Left knee pain Reason for Consultation: Medical change management director Provider: Dr. Perez Date of Consult: 11/21/2024 [...] tabs, Oral, Daily, AM (more content not included)...[facility]05-10-2025 NoteChief Complaint Left knee pain Reason for Consultation: Medical change management director Provider: Dr. Perez Date of Consult: 11/21/2024 [...] mg/12 hours oral tab (more content not included)...[facility]05-09-2025 NoteIndication for Surgery Patient is a 74-year-old [...] MUJICA, Luis Alberto Vegas (Surgeon - Primary) Flower Planter Bella Yarbrough PA-C (Volleyball Commentator) Anesthesia General Chance MUJICA, Salas De Jesus (Provider) Tressa GOLD-HARDWOOD FLOOR SANDER, Moises Herrmann (Provider) Moy GOLD-HARD[employer]OD FLOOR SANDER, Mayi Ferguson (Provider) Estimated Blood Loss 500.0 [...] confirming correct surgical site, patient, and procedure. [place] exsanguination was used and tourniquet was inflated [...] size 9. The fem (more content not included)...[facility]05-06-2025 History of Present illness Narrative* Korina Ham - 11/18/2024 10:30 AM EDT Explained policies and procedure of an echocardiogram/Doppler study. [facility] Reason for [...] drugs Family history her mother due to NH at age 69. Her father had congestive [...] peripheral arterial disease Be (more content not included)...[facility]04-21-2025 Evaluation note* Diagnosis Onset Date Resolution Status Admit Date Essential (primary) hypertension acu te November 03, 2024 1:01pm Primary osteoarthritis of le ft knee acute November 03, 2024 1:01pm Right femoral vein DVT acute Ap 2024 1:01pm [facility] Work Phone: 1([phone]) 624-114408-15-2024 Evaluation + Plan note* Assessment & Plan Note - Greer Su MD - 02/28/2024 9:01 AM EDTAssociated Problem(s): Venous ulcer of left leg (CMS-HCC) Wound pretty much healed. Discussed with her risk factors modification and follow-up as needed. [facility]08-15-2024 Evaluation + Plan note* Assessment & Plan Note - Greer Su MD - 02/28/2024 9:01 AM EDTAssociated Problem(s): Critical limb ischemia of left lower extremity with gangrene (CMS-HCC) Wound pretty much healed. Discussed with her risk factors modification and follow-up as needed. [facility]08-15-2024 Miscellaneous Notes* Assessment & Plan Note - Greer Su MD - 02/28/2024 9:01 AM EDTAssociated Problem(s): Venous ulcer of left leg (CMS-HCC) Wound pretty much healed. Discussed with her risk factors modification and follow-up as needed. * Assessment & Plan Note - Greer Su MD - 02/28/2024 9:01 AM EDT Associated Problem(s): Critical limb ischemia of left lower extremity with gangrene ([facility]-HCC) Wound pretty much healed. Discussed with her risk factors modification and follow-up as needed. documented in this encounterS[facility] History of Present illness Narrative* Greer Su [...] reflux that is relatively mild with a field counsel in the left lower extremity near her [...] Past Medical History: Diagnosis Date Clotting disorder ([facility]) Deep vein thrombosis ([facility]) History of arterial disease of [...] you for your understanding. documented in this encounterS[facility]-20[facility] Evaluation + Plan note* Assessment & Plan Note - Greer Su MD - 01/24/2024 9:20 AM EDT Associated Problem(s): Venous ulcer of left leg (CMS-HCC) We will reevaluate in a month. If the ulcer healed or healing well we will hold off on any intervention otherwise we will do ultrasound-guided injection sclerotherapy and ablation of the GSV. [facility]07-11-2024 History of Present illness Narrative* Greer Su [...] GSV reflux that isrelatively mild with a field counsel in the left lower extremity near her [...] Past Medical History: Diagnosis Date Clotting disorder ([facility]-H[facility]) Deep vein thrombosis ([facility]) History of arterial disease of lower extremity [...] ulcer of left leg (CMS-HCC) - Primary [facility] was seen today for critical limb [...] you for your understanding. documented in this encounterSCCI [facility]-2024 Miscellaneous Notes* Assessment & Plan Note - Greer Su MD - 01/24/2024 9:20 AM EDT Associated Problem(s): Venous ulcer of left leg (CMS-HCC) We will reevaluate in a month. If the ulcer healed or healing well we will hold off on any intervention otherwise we will do ultrasound-guided injection sclerotherapy and ablation of the GSV. documented in this encounterS[facility]-20[facility] Evaluation + Plan note* Assessment & Plan Note - Greer Su MD - 01/03/2024 10:48 AM EDT Associated Problem(s): Critical limb ischemia of left lower extremity with gangrene (CMS-HCC) PVR with toe pressure [facility]2024 Miscellaneous Notes* Assessment & Plan Note - Greer Su MD - 01/03/2024 10:48 AM EDTAssociated Problem(s): Critical limb ischemia of left lower extremity with gangrene (CMS-HCC) PVR with toe pressure * Assessment & Plan Note - Greer Su MD - 01/03/2024 10:47 AM EDT Associated Problem(s): Venous ulcer of left leg (CMS-HCC) Venous reflux ultrasound and compression therapy documented in this encounterS[facility]-2024 Evaluation + Plan note* Assessment & Plan Note - Greer Su MD - 01/03/2024 10:47 AM EDT Associated Problem(s): Venous ulcer of left leg (CMS-HCC) Venous reflux ultrasound and compression therapy [facility]06-20[facility]20[facility] History of Present illness Narrative* Greer Su [...] Problem List Venous ulcer of left leg ([facility]) Current Assessment & Plan Venous reflux ultrasound and compression therapy Relevant Orders Vas venous duplex insufficiency lwr bi Vas art doppler lwr bilat mult lev/PVR Critical limb ischemia of left lower extremity with gangrene ([facility]-HCC) - Primary Current Assessment & Plan PVR [...] (ELVIN) - [facility] [place] [place] - Vas venous duplex insufficiency lwr [...] you for your understanding. documented in this encounterSCCI [facility]-20[facility] Evaluation note* Encounter Date Diagnosis Assessment Notes [...] Aug, Lower extremity edema (ICD-10 - R60.0) [employer] Other 02-01-2024 Evaluation note* Encounter Date Diagnosis Assessment Notes Treatment Notes Treatment Clinical Notes Aug, Leg edema, right (ICD-10 - R60.0) Check US today, discussed other possibilities but r/o DVT first. [employer] Other 12-19-2023 Evaluation note* Encounter Date Diagnosis Assessment Notes Treatment Notes Treatment Clinical Notes Jun, Lumbar pain (ICD-10 - M54.50) [employer] Other 11-27-2023 Evaluation note* Encounter Date Diagnosis Assessment Notes Treatment Notes Treatment Clinical Notes May, DDD (degenerative disc disease), lumbar (ICD-10 - M51.36) [employer] Other 11-14-2023 Evaluation note* Encounter Date Diagnosis Assessment Notes Treatment Notes Treatment Clinical Notes May, Peripheral polyneuropathy (ICD-10 - G62.9) Requests labs to r/o metabolic causes. May, Lumbar pain (ICD-10 - M54.50) Chronic lumbar pain. Agrees to start w xray. May, Paronychia, toe, lef t (ICD-10 - L03.032) Pt requests antibiotic at end of visit. Keep foot clean and dry. [employer] Other 08-31-2023 Evaluation note* Encounter Date Diagnosis [...] wedding planned the end of August 2023. [employer] Other 07-27-2023 Evaluation note* Encounter Date Diagnosis [...] it is not something that I prescribed. [employer] Other 07-06-2023 Evaluation note* Encounter Date Diagnosis Assessment Notes Treatment Notes Treatment Clinical Notes Jan, Easy bruisability (ICD-10 - R23.3) Pt will get labs today. Discussed possible link w the frequent NSAIDs Jan, Essential (primary) hypertension (ICD-10 - I10) Due for labs. Possible elevated glucose - nonfasting, had steroid pills and injections due to foot issues. She is seeing podiatry for plantar fasciitis. [employer] Other 07-06-2023 Evaluation note* Encounter Date Diagnosis [...] symptoms. Any developing patterns. Stay well hydrated. [employer] Other 05-31-2023 NotePROCEDURE: XR FOOT LT MIN [...] Electronically authenticated by: TIM TORREZ Date: 2022-12-13 08:39[facility]05-30-2023 Evaluation note* Encounter Date Diagnosis Assessment Notes Treatment Notes Treatment Clinical Notes November, Left foot pain (ICD-10 - M79.672) Discussed primary concern of stress fracture. Pt agrees to xray. Reviewed ortho notes. She is to followup there prn. [employer] Other 2023 Evaluation note* Encounter Date Diagnosis Assessment Notes Treatment Notes Treatment Clinical Notes Oct, History of total right knee replacement (ICD-10 - Z96.651) Oct, Primary osteoarthritis of both knees (ICD-10 - M17.0) Oct, Other [facility] at [facility] on 10/24/2021 Happy with surgical result [...] as needed basis for the left knee. [employer] Other 09-29-2022 Evaluation note* Encounter Date Diagnosis Assessment Notes Treatment Notes Treatment Clinical Notes Mar, Primary osteoarthritis of both knees (ICD-10 - M17.0) [employer] Other 08-22-2022 Evaluation note* Encounter Date Diagnosis [...] note writ ten by Richar Kruger LPN, Allied Health Teacher. Edited and approved by Dr. Wayne Mccallum MD. [employer] Other 07-06-2022 Evaluation note* Encounter Date Diagnosis Assessment Notes Treatment Notes Treatment Clinical Notes Jan, Primary osteoarthritis of both knees (ICD-10 - M17.0) Jan, Aftercare following joint replacement surgery (ICD-10 - Z47.1) Jan, History of total right knee replacement (ICD-10 - Z96.651) Jan, Other [facility] TKA at [facility] on 10/24/2021 Doing well Discussed post-op dental prophylaxis. Shared decision made to continue prophylactic antibiotics indefinitely. Follow-up at 1 year post-op for repeat examination and 2 view x-rays of the right knee. Patient instructed to call with any questions or concerns. [employer] Other 05-25-2022 Evaluation note* Encounter Date Diagnosis Assessment Notes Treatment Notes Treatment Clinical Notes November, Primary osteoarthritis of both knees (ICD-10 - M17.0) November, Aftercare following joint replacement surgery (ICD-10 - Z47.1) November, History of total right knee replacement (ICD-10 - Z96.651) November, Other [facility] TKA at [facility] on 10/24/2021 Doing well Patient may continue activities as tolerated. Continue PT as recommended. Continue taking ydzp-gdx-mzabiju anti-inflammatori es as needed for assistance with swelling and pain associated with the operative extremity. Follow-up in 6 weeks for repeat examination and long standing x-rays. [employer] [facility] Other 05-04-2022 Evaluation note* Encounter Date Diagnosis [...] for 3 views of the right knee. [employer] Other 04-01-2022 Evaluation note* Encounter Date Diagnosis [...] patient could proceed with surgery safely. The interactive account manager was vital for surgery timing [...] plans. Prolonged services time spent: 37 minutes [employer] Other 04-01-2022 History general Narrative - Reported* Type Description Date Medical History hypertension Surgical History bilateral SANDRO Surgical History abdominal surgery Surgical History RT TKR 10/2021 Hospitalization History see above [employer] [facility] Other 04-01-2022 History general Narrative - Reported* Type Description Date Medical History hypertension Surgical History bilateral SANDRO Surgical History abdominal surgery Surgical History RT TKR 10/2021 Surgical History COLONOSCOPY Hospitalization History see above [employer] [facility] Other 04-01-2022 History general Narrative - Reported* Type Description Date Medical History hypertension Medical History Frozen shoulder Medical History Lumbar pain Surgical History bilateral SANDRO Surgical History abdominal surgery Surgical History RT TKR 10/2021 Surgical History COLONOSCOPY Hospitalization History see above [employer] Other 03-24-2022 Evaluation note* Encounter Date Diagnosis [...] rehab stay. Joints Meeting Checklist - Pharmacy: [facility] to bed - Approach/Technique: ZULLY - Implants: [...] elected to proceed with the above surgery. [employer] [facility] Other 03-01-2022 Evaluation note* Encounter Date Diagnosis [...] note writ ten by Richar Kruger LPN, Allied Health Teacher. Edited and approved by Dr. Wayne Mccallum MD. [employer] Other 03-01-2022 Evaluation note* Encounter Date Diagnosis Assessment Notes Treatment Notes Treatment Clinical Notes Sep, Primary osteoarthritis of both knees (ICD-10 - M17.0) [employer] Other 01-25-2022 Evaluation note* Encounter Date Diagnosis Assessment Notes Treatment Notes Treatment Clinical Notes Jul, Primary osteoarthritis of both knees (ICD-10 - M17.0) [employer] Other 01-13-2022 Evaluation note* Encounter Date Diagnosis [...] note writ ten by Richar Kruger LPN, Allied Health Teacher. Edited and approved by Dr. Wayne Mccallum MD. [employer] Other 10-28-2021 Evaluation note* Encounter Date Diagnosis [...] note writ ten by Nissa Murillo CMA, Allied Health Teacher. Edited and approved by Dr. Wayne Mccallum MD. [facility] [employer] Other Evaluation noteNo assessment information available [facility] Work Phone: Evaluation noteNo InformationNortEncompass Health [facility] [employer] Other Evaluation note* Diagnosis Onset Date Resolution Status Right femoral vein DVT acute [facility] Work Phone: Evaluation note* Diagnosis Onset Date Resolution Status Essential (primary) hypertension acute Knee arthropathy acute Right femoral vein DVT acute PAD (peripheral artery disease) acute Primary osteoarthritis of left knee acute [facility] Work Phone: Evaluation note* Diagnosis Onset Date Resolution Status Essential (primary) hypertension acute Knee arthropathy acute Right femoral vein DVT acute PAD (peripheral artery disease) acute Primary osteoarthritis of left knee acute PAD (peripheral artery disease) acute Venous ulcer of left leg acu te [facility] Work Phone: Evaluation note* Diagnosis Onset Date Resolution Status Primary osteoarthritis of left knee acute PAD (peripheral artery disease) acute Venous ulcer of left leg acu te Primary osteoarthritis of left knee acute [facility] Work Phone: Evaluation note* Diagnosis Critical limb ischemia of left lower extremity with gangrene (CMS-HCC)- Primary Abnormal ankle brachial index (ELVIN) Venous ulcer of left leg (CMS-HCC) [facility] Diagnosis Venous ulcer of left leg (CMS-HCC)- Primary [facility] Diagnosis Venous ulcer of left leg (CMS-HCC)- Primary Critical limb ischemia of left lower extremity with gangrene (CMS-HCC) [facility] Diagnosis Pre-operative clearance Preoperative examination, unspecified Leg edema Edema Paroxysmal atrial fibrillation (HCC) Atrial fibrillation documented in this encounter [facility] general Narrative - Reported* Type Description Date Medical History hypertension Surgical History bilateral SANDRO Surgical History abdominal surgery [employer] Other Hospital Discharge instructionsAmbulatory Orders* Referral to Wound Care Time Frame: 10/15/23, Location: None Selected [facility] Work Phone: InstructionsNot on filedocumented in this encounter [facility] filedocumented in [facility] encounter [facility] filedocumented in this encounter [facility] (narrative)No reason for referral [facility]: Reason for visit Narrative* Imaging (Routine) - Pending Review Specialty Diagnoses / Procedures Referred By Eugenia t Referred To Contact Cardiology Diagnoses Pre-operative clearance Leg edema Paroxysmal atrial fibrillation (HCC) Procedures Echo (TTE) complete (PRN contrast/bubble/strain/3D) WA ECHO TTHRC R-T 2D W/WOM-MODE COMPL SPEC&COLR D WA TTE W OR WO FOL WCON,DOPPLER Vickey Mata MD [address] [facility] [id number] [place] [address] Phone: tel: fax: Referral ID Status Reason Start Date Expiration Date V isits Requested Visits Authorized [id number] Pending Review 11/16/2024 11/14/2025 1 1 [facility] Family History Relationship Condition Age at [...] lev/PVR Greer Su MD [address], [address] [address] Referral ID Status Reason Start Date Expiration Date V isits Requested Visits Authorized [id number] Pending Review 01/03/2024 01/02/2025 1 1 Specialty Diagnoses / Procedures Referred By Contac t Referred To Contact Diagnoses Abnormal ankle brachial index (ELVIN) Critical limb ischemia of left lower extremity with gangrene (CMS-HCC) Venous ulcer [facility] left leg ([facility] Procedures Vas venous duplex insufficiency lwr bi Greer Su MD [address], [address] [address] Referral ID Status Reason Start Date Expiration Date V isits Requested Visits Authorized [id number] Pending Review 01/03/2024 01/02/2025 1 1 Reason evaluate and t reat Diagnosis 1 Lumbar pain (M54.50) Referral Organization [facility] Referring Provider First Name Ny Referring Provider Last Name Annabel Referring Provider Specialty Nurse Pract itioner Referred Organization [facility] Referred Provider Wayne Mccallum Referred Address [address] [place],[address] Referred Provider Specialty Pain Medicin e Referral Priority Routine General Notes Eryn Reynoso 02:02:11 PM >received today, patient previously seen by Dr Mccallum (last visit Feb 2022) and is still considered established. sending p2p at this time for scheduling. Reason evaluate and t reat for peripheral vascular disease Diagnosis 1 Peripheral vascular disease (I73.9) Referral Organization [facility] Referring Provider First Name Ny Referring Provider Last Name Annabel Referring Provider Specialty Nurse Ana Lilia stevens Referred Organization [facility] Vascular Surge ry Referred Provider Willy Yancey Referred Address [address] [facility] [address],[place], [place],[address] Referred Provider Specialty Vascular Samantha piotr Referral Priority Routine General Notes Eryn Reynoso 02:08:33 PM >received today, p2p sent for scheduling Reason *Waiting for appt chronic lumbar - recent MRI Diagnosis 1 Lumbar pain (M54.50) Referral Organization [facility] Referring Provider First Name Katelynn Referring Provider Last Name Amber Referring Provider Specialty Family Medi cine Referred Organization [facility] Sp[facility] Center Referred Provider Jose Clark Referred Address [address] [facility] [address] ,[place], [place],[address] Referred Provider Specialty Neurological Surgery Referral Priority [...] ankle brachial index (ELVIN) records requested and [facility] called for ELVIN Disk pushedto PACS Edema Wound not healing , Wound clinic would like you to look deeper into the PAD Specialty Diagnoses / Procedures Referred By Eugenia parkinson Referred To Contact Vascular Surgery Diagnoses Abnormal ankle brachial index (ELVIN) Katelynn Clark MD [address] [place] [id number] Greer Su MD [address] [place] [address] Referral ID Status Reason Start Date Expiration Date Visits Requested Visits Authorized [id number] Pending Review Specialty Services Required 11/29/2023 11/28/2024 [...] December 13, 2023 End: December 13, 2023 Job Checker Relationship Specialty Start Date End Date Katelynn Clark MD [address] [place], [place] [id number] PCP - General Family Medicine 11/29/23 Job Checker Relationship Specialty Start Date End Date Katelynn Clark MD [address] [place] [id number] PCP - General Family Medicine 11/29/23 Job Checker Relationship Specialty Start Date End Date Katelynn Clark MD [address] [place] [id number] PCP - General Family Medicine 11/29/23 Team [...] and content) DATE CREATED AUTHOR 12/22/2022 [facility] DATE CREATED AUTHOR AUTHOR'S ORGANIZ ATION 06/20/[address] [facility] DATE CREATED AUTHOR AUTHOR'S ORGANIZ ATION 11/21/2024 [facility] DATE CREATED AUTHOR AUTHOR'S ORGANIZ ATION 11/30/2024 [facility] DATE CREATED AUTHOR AUTHOR'S ORGANIZ ATION 12/10/2024 [facility] DATE CREATED AUTHOR AUTHOR'S ORGANIZ ATION 12/11/2024 [facility] DATE CREATED AUTHOR AUTHOR'S ORGANIZ ATION 02/24/2025 [facility] FOR RECORDS PERTAINING TO PATIENTS WHO [...] BE BASED ON THE PRIMARY CLINICAL RECORDS. [facility]. provides no warranty or guarantee of the accuracy or completeness of information in this document.
--- NOTE | 2025-04-30 08:45 | PM.CN ---
Consult Note: HPI Data of Consult Patient: known to practice within the last 3 years Consult date: 04/30/25 Requesting Physician: Amena Gutiérrez NP Primary Care Provider: Vashti Engle MD Consult Narrative Reason for consult: low back pain Narrative: Kami Fink a pleasant 75 year old female presents for evaluation and management of chronic moderate to severe low back pain secondary to lumbar spondylosis unresponsive to > 6 weeks of PT/HEP, heat, ice, tylenol, NSAIDs. Pt interested in repeating lumbar RFA as prior bilateral L4-5 L5-S1 facet RFA provided >50% improvement in pain and functional ability greater than 6 months. pt denies fall/injury in the last 6 months. has been recovering from left total knee replacement 12/07 and doing well overall. pt notes low back pain 2/10 increasing to 8/10 aching with standing, walking, twisting, pushing, pulling, lifting, stairs, bending, activity. cc:: CC: Amena Gutiérrez NP Review of Systems ROS Musculoskeletal Reports: back pain PFSH PFSH Medical History DVT (deep venous thrombosis) ?I82.409 - Acute embolism and thrombosis of unspecified deep veins of unspecified lower extremity (ICD-10) Hypertension ?I10 - Essential (primary) hypertension (ICD-10) Hyperlipidemia ?E78.5 - Hyperlipidemia, unspecified (ICD-10) Lumbar spondylosis ?M47.816 - Spondylosis without myelopathy or radiculopathy, lumbar region (ICD-10) Osteoarthritis of left knee ?M17.12 - Unilateral primary osteoarthritis, left knee (ICD-10) Low back pain ?M54.50 - Low back pain, unspecified (ICD-10) Osteoarthritis ?M19.90 - Unspecified osteoarthritis, unspecified site (ICD-10) PAD (peripheral artery disease) ?I73.9 - Peripheral vascular disease, unspecified (ICD-10) Hiatal hernia ?K44.9 - Diaphragmatic hernia without obstruction or gangrene (ICD-10) Heartburn ?R12 - Heartburn (ICD-10) Surgical History H/O exploratory laparotomy ?Z98.890 - Other specified postprocedural states (ICD-10) History of knee replacement ?Z96.659 - Presence of unspecified artificial knee joint (ICD-10) History of hip replacement ?Z96.649 - Presence of unspecified artificial hip joint (ICD-10) Family History Father Family history of CHF (congestive heart failure) Mother Family history of myocardial infarction Sister Family history of cancer Family history of hypertension Family history of stroke Social History Within the past year, how often did you have a drink containing alcohol: monthly or less Within the past year, how many standard drinks containing alcohol did you have on a typical day: 1 or 2 Within the past year, how often did you have six or more drinks on one occasion: never Total score: 0 Score interpretation: A score less than 3 is consistent with normal alcohol consumption. 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 Highest level of school completed/degree received: Associate degree: occupational, technical, vocational program Are you now , , , , never or living with a partner: In a typical week, how many times do you talk on the telephone with family, friends, or neighbors: 3 or more times per week How often do you get together with friends or relatives: once per week How often do you attend cheondoism or scientology services: never Little interest or pleasure in doing things: not at all Feeling down, depressed, or hopeless: not at all Feel stressed/tense/nervous/anxious/difficulty sleeping: not at all Do you think of yourself as: straight/heterosexual Gender Identity: female Meds Home Medications and Allergies Home Medications ?Medication ?Instructions ?Recorded ?Confirmed ?Type apixaban 5 mg tablet (Eliquis) 5 mg PO BID 09/24/23 12/26/23 History atorvastatin 40 mg tablet 40 mg PO DAILY 09/24/23 12/26/23 History diclofenac sodium 75 mg 75 mg PO Q12H PRN pain 09/24/23 12/26/23 History tablet,delayed release metoprolol succinate 100 mg 100 mg PO DAILY 09/24/23 12/26/23 History tablet,extended release 24 hr verapamil 180 mg tablet,extended 180 mg PO DAILY 09/24/23 12/26/23 History release tramadol 50 mg tablet 50 mg PO Q6H PRN Pain Scale 7-10 2 12/30/23 Rx days #8 tabs Allergies Allergy/AdvReac Type Severity Reaction Status Date / Time No Known Drug Allergies Allergy Verified 11/19/23 08:54 Exam Constitutional Documenting provider has reviewed patient's vital signs: yes Common normals: no apparent distress, oriented x3, healthy appearing, alert and well nourished General appearance: cooperative HENMT Common normals: normocephalic, hearing grossly normal bilaterally and moist oral mucous membranes Head and scalp: normocephalic Eye Common normals: PERRL Pupil: PERRL Neck & C-Spine Common normals: full ROM General: normal visual inspection Chest Common normals: inspection of chest normal Respiratory Common normals: normal respiratory effort, no retractions and no use of accessory muscles Back & Pelvis Lumbar spine/lower back: ROM limited, pain with ROM, lumbar spinal tenderness and straight leg raise negative bilaterally Other: positive facet loading bilaterally strength 5/5 in BLE sensation intact BLE Neuro Common normals: oriented x3 Sensorium/orientation: alert Psych Common normals: mental status grossly normal, thought process normal, cooperative, affect normal, speech normal and activity/motor behavior normal Speech: normal speech Thought process: normal thought process Results Imaging lumbar xray: Attestation: I have reviewed the pertinent imaging results. Radiologist's impression: Prominent scoliotic curvature of lumbar spine. Grade 1 retrolisthesis of L2 on 3, L3 on 4, and grade 1 anterior listhesis of L4 on 5, and grade 2 anterior listhesis of L5 on S1. Degenerative endplate changes L1, L2, L3 versus mild compression fractures. Multilevel moderate degenerative facet arthropathy. DISC SPACES: Marked narrowing L1-L2, L2-L3, L3-L4, L5-S1. PARASPINOUS: Negative. No paraspinous abnormality is seen. OTHER: Bilateral hip replacements. Additional Findings Additional findings: If on a controlled substance or opioids, I have checked an [place] report on this patient and there are no aberrancies noted in the prescribing history.??If on a controlled substance or opioid a drug screen was completed and reviewed within the last year, and if there has not been a drug screen completed we ordered one today to monitor higher risk, state monitored pain medication use. As part of providing excellent, safe, comprehensive care, the following was completed at our patient's visit: 1. A medication reconciliation and review to ensure accurate knowledge of current/active medications, including asking our patients to inform us about any ivsy-gyd-mzdruec medications or herbal remedies/nutritional supplements/alternative remedies. 2. A review to specifically ensure our patients have had annual screening for screening for depression, screening for tobacco use, and screening for unhealthy alcohol use. For concerning screenings had a discussion with the patient, provided patient education, and recommended follow-up with primary care provider when appropriate. If patient noted with a risk of falling, they received education on strength, gait, and balance training to prevent future risk of falling. Portions of this note may have been carried over from the previous visit and updated as appropriate. Please note this office utilizes paper charting in addition to the electronic medical record. A list of current medications, vitals, and PMH is available there as the clinical staff outside of myself do not have access to [employer] charting during the clinic day operations. As part of providing quality comprehensive care the current medications, vitals, and PMH were reviewed in the paper chart. Assessment and Plan Assessment and Plan (1) Lumbar spondylosis: Plan The patient has had over 3 months of moderate to severe low back pain with functional impairment and inadequate response to conservative care including NSAIDS (unless there are contraindication such as concurrent blood thinners), multiple oral or topical pain medications, and home exercise program/physical therapy.? Patient has completed >6 weeks of guided home exercise program and/or formal physical therapy program without relief of their symptoms.? The Oswestry Disability Index was completed, and the patient scored a 31%.? repeat bilateral L4-5 L5-S1 facet RFA under fluoroscopy with 10mg po valium 30-60mins prior to procedure for anxiolysis continue HEP as tolerated continue tylenol and diclofenac as ordered by PCP f/u 1 month after RFA complete
== END 2025-04-30 08:12 | disposition home or self-care (01) ==
LOC: PM 08:12
PROVIDERS: PCP Family Medicine; Visit Provider Nurse Practitioner
DX: M47.816 Spondylosis without myelopathy or radiculopathy, lumbar region (principal)
CPT/HCPCS: G0463

== ENCOUNTER 2025-05-25 08:32 | Day surgery (SDC) | payer MEDICARE, SELFPAY ==
--- OUTSIDE RECORDS SUMMARY | 2025-05-25 08:36 | XMS_ITS | Patient Health Record ---
Author Organization [facility] Address [address] [place] [address] Care Team Providers Care Injection Maintenance Technician Name Role Phone Vashti Engle M.D. Primary Care Provider Unavail able Austin Perez Unavailable [phone] Jesus Stinson Unavailable [phone] DonovanRema Unavailable [phone] Bella Yarbrough Unavailable [phone] Allergies No Known Allergies Results Component Value Reference Range Notes Basic Metabolic Profile Reviewed date:11/24/2024 12:13:46 PM Interpretation: Performing Lab: Notes/Report: missed 2 times 11/23/2024 05:40:48 EDT ss [address] [address] Sodium Lvl 135 133-142 mmol/L Potassium Lvl4.23.4-4.8 mmol/BNlbbqjpf38715-461 mmol/ZFD37430-66 mmol/LAnion Gap 54-12Glucose Mrm80076-25 mg/bEIXJ517-19 mg/dLCreatinine Lvl0.830.44-1.03 mg/dL BUN Crea Ratio24.110.0-20.0 ratioCalcium Lvl8.78.6-10.3 mg/dL.eGFR Reviewed date:11/24/2024 12:13:46 PM Interpretation: Performing Lab: Notes/Report: [address] [address]Rmlmmchyx GFR>60>=60 mL/min/1.73m? [facility] have implemented the eGFR [...] of SCr/? or 1 Age = years Hgb Reviewed date:11/24/2024 12:13:46 PM Interpretation: Performing Lab: Notes/Report: [address] [address]Inf94.512.0-16.0 g/dLHct35.436.0-46.0 %Hgb Reviewed date:11/24/2024 12:13:53 PM Interpretation: Performing Lab: Notes/Report: [address] [address]Qdh09.112.0-16.0 g/dLHct35.536.0-46.0 %.eGFR Reviewed date:11/24/2024 12:13:53 PM Interpretation: Performing Lab: Notes/Report: [address] [address]Rrfwqamox GFR55>=60 mL/min/1.73m? [facility] have implemented the eGFR [...] of SCr/? or 1 Age = years Basic Metabolic Profile Reviewed date:11/24/2024 12:13:53 PM Interpretation: Performing Lab: Notes/Report: [address] [address]Nahijn Uyc972334-894 mmol/LPotassium Lvl4.33.4-4.8 mmol/L Igyinbhx62400-541 mmol/GJU60632-94 mmol/LAnion Caq62-00Hrkpqhu Tel34347-79 mg/dL RTB981-44 mg/dLCreatinine Lvl1.050.44-1.03 mg/dLBUN Crea Ratio20.010.0-20.0 ratioCalcium Lvl8.88.6-10.3 mg/dLXR Knee 1 or 2 Views Left Reviewed date:11/24/2024 12:13:53 PM Interpretation: Performing Lab: Notes/Report: Patient Name: Linda Fink EXAM: XR Knee 1 or 2 Views LeftSurgery Scheduling Reviewed date:11/26/2024 02:32:09 PM Interpretation: Performing Lab: Notes/Report: Primary Insurance Company:MedicareSuHigh Performance SmarteBuildingon/Assist:VARGHESE Conradurgery Location: BVurgery Date & Time:November 21, 2024Procedure:Left Total Knee ArthroplastySpecial Equipment:Kumar Persona Primary& Revision ComponentsDiagnosis:Left Knee Pain/OA Admission Type:inpatientAnesthesia Type/CPNB:EbbdqwbWwa31 hrLab Location: Analy:[place] Physician:Vashti Funez Metabolic Profile Reviewed date:11/24/2024 12:13:46 PM Interpretation: Performing Lab: Notes/Report: [address] [place], [place] [address]Csdjek Jxx572159-870 mmol/LPotassium Lvl4.23.4-4.8 mmol/L Voubqmtp20172-187 mmol/UHJ21786-25 mmol/LAnion Bes14-11Ivtkmfw Erv79450-49 mg/dL VHF488-99 mg/dLCreatinine Lvl0.870.44-1.03 mg/dLBUN Crea Ratio19.510.0-20.0 ratioCalcium Lvl8.68.6-10.3 mg/dL.eGFR Reviewed date:11/24/2024 12:13:46 PM Interpretation: Performing Lab: Notes/Report: [address] [address]Ociweppzt GFR>60>=60 mL/min/1.73m? [facility] have implemented the eGFR [...] of SCr/? or 1 Age = years Hgb Reviewed date:11/24/2024 12:13:46 PM Interpretation: Performing Lab: Notes/Report: [address] [address]Ncb65.712.0-16.0 g/dLHct31.936.0-46.0 %Basic Metabolic Profile Reviewed date:12/02/2024 02:47:29 PM Interpretation: Performing Lab: Notes/Report: [address] [address]Ruyrat Ghs752802-874 mmol/LPotassium Lvl4.13.4-4.8 mmol/L Byfccxor25948-229 mmol/VLY22882-94 mmol/LAnion Zfx63-99Bmtewui Azs27766-80 mg/dL CFG129-21 mg/dLCreatinine Lvl0.960.44-1.03 mg/dLBUN Crea Ratio15.610.0-20.0 ratioCalcium Lvl8.88.6-10.3 mg/dL.eGFR Reviewed date:12/02/2024 02:47:29 PM Interpretation: Performing Lab: Notes/Report: [address] [address]Qlfauawhp GFR>60>=60 mL/min/1.73m? [facility] have implemented the eGFR [...] of SCr/? or 1 Age = years Hgb Reviewed date:12/02/2024 02:47:29 PM Interpretation: Performing Lab: Notes/Report: [address] [address]Rrt37.912.0-16.0 g/dLHct32.836.0-46.0 %Basic Metabolic Profile Reviewed date:12/02/2024 02:47:20 PM Interpretation: Performing Lab: Notes/Report: [address] [address]Fgotyr Vcq328116-295 mmol/LPotassium Lvl4.13.4-4.8 mmol/L Nspvdbse29974-091 mmol/IVM50894-50 mmol/LAnion Aek33-62 mmol/LGlucose Xio35873- 99 mg/hIJUL465-94 mg/dLCreatinine Lvl0.890.60-1.20 mg/dLBUN Crea Ratio16.915.0- 25.0 ratioCalcium Lvl8.58.6-10.3 mg/dL.eGFR Reviewed date:12/02/2024 02:47:20 PM Interpretation: Performing Lab: Notes/Report: [address] [address]Tcuzgqwtd GFR>60>=60 mL/min/1.73m? [facility] have implemented the eGFR [...] of SCr/? or 1 Age = years Hgb Reviewed date:12/02/2024 02:47:20 PM Interpretation: Performing Lab: Notes/Report: [address] [address]Eof39.212.0-16.0 g/dLHct30.636.0-46.0 % Reason For Referral Reason NO AUTH REQ...............................11/21/24.....................................MCR /AARP Left Total Knee Arthroplasty @ [facility] Diagnos is 1 Primary osteoarthritis of left knee (M17 .12) Diagnos is 2 Left knee pain (M25.562) Referra l [facility] Referri ng Provide r First Name Austin Referri tomi Provide r Last Name Chris krishna Provide r Special ity Orthopedic Surgery Referre d [facility]- Referre d Address [facility] [place], [place],[address] 214,[place] Procedu re 1 Arthroplasty Knee Total Med/Lat Compartm ents ([address]) General Notes Ingris Virgen 10/31/2024 07:59:31 AM >, Aracelis Matias 10/31/2024 08:37:13 AM > MEDICARE PART A ACTIVE AND EFFECTIVE 04/15/13 AND PART B ACTIVE AND EFFECTIVE 02/13/14 PER AVAILITY WITH AARP SECONDARY. NO AUTHORIZATION REQUIRED. FAXED TO [facility].Param Kelly 10/31/2024 08:54:48 AM > Clifford garnett Priorit y Routine Medications Medication SIG (Take, Route, Frequency, Duration) Notes Start Date End Date Status Eliquis ActiveEliquis 5 mgfor 30 DaysActiveImodiumActiveLasixActiveMetoprolol Succinate ER 100 mgTAKE 1 TABLET BY MOUTH ONCE DAILY for 90 DaysActiveMetoprolol Succinate ER 100 mgfor 90 DaysActiveatorvastatinActiveciprofloxacin ophthalmic 0.3%for 7 DaysActivediclofenacActiveciprofloxacin ophthalmic 0.3%PUT 1 TO 2 DROPS IN AFFECTED EYE(S) EVERY 2 HRS. UP TO 8X'S PER DAY. FOR 2 DAYS; THEN 4 X'S DAILY FO R 5 DAYS IN BOTH EYES for 7 DaysActivePepcidActivepotassium chlorideActive traMADolActiveverapamilActive Social History Tobacco Use: Social History Observation Description Date Details (start date - stop date) Never Smoker NA - NA AUDIT-C (Standard) Question Answer Notes Did you have a drink containing alcohol in the p ast year? No Vlgisl7EafprzehaurkdlDbpwkdygYkjjcfq Control (Standard) Question Answer Notes Tobacco use: Nonsmoker Problems Problem Type SNOMED Code ICD Code Onset Dates Problem Status W/U Status Risk Notes Problem History of musculosk eletal operation (053835308) Aftercare following joint replacement surgery (Z47.1) KmnqqzygqsabruvZmwvidb774144155965791Iygxeej osteoarthritis, right shoulder (M19.011)ActiveconfirmedProblemOsteoarthritis of knee (533075192)Primary osteoarthritis of left knee (M17.12)PcstmyagyxyfeasTcqmjtd643843567093795Levktjt osteoarthritis, left shoulder (M19.012)JzitgmcfxtdrdzwQqqbugh665806415Ojefbu fracture of left tibial plateau, initial encounter (S82.142A)Activeconfirmed Xzcdqzf382977425Aqkuaz fracture of left tibial plateau with routine healing (S82.142D)ActiveconfirmedProblemArtificial knee joint present (877396678003) Status post left knee replacement (Z96.652)Activeconfirmed Vital Signs Height 5'4 in 01/19/2025 Uxjlwv687 lbs01/19/2025BMI35.18001/19/2025 Encounters Encounter Location Date [facility] [address] [facility] [place] [address] 06/02/2024 Austin Perez Primary osteoarthrit is of left knee M17.12 and Closed fracture of left tibial plateau with routine healing S82.142D [place] [address] [facility] [place] [address] 06/30/2024 Austin Perez Primary osteoarthrit is of left knee M17.12 [facility] [address] [place] [address] 11/17/2024 Austin Perez Primary osteoarthrit is of left knee M17.12 [facility] [address] [place], [place] [address] 11/21/2024 Austin Perez Primary osteoarthrit is of left knee M17.12 [facility] [address] [facility] [place] [address] 12/04/2024 Bella Linnea Status post left kne e replacement Z96.652 and Aftercare following joint replacement surgery Z47.1 [facility] [address] [place] [address] 01/12/2025 Jesus Eucedaland Pain in right should er M25.511 ; Primary osteoarthritis, right shoulder M19.011 ; Pain in left shoulder M25.512 and Primary osteoarthritis, left shoulder M19.012 [facility] [address] [place] [address] 01/19/2025 Bella Linnea Status post left kne e replacement Z96.652 and Aftercare following joint replacement surgery Z47.1 [facility] [address] [place] [address] 01/26/2025 Rema Dempseycomb Primary osteoarthritis, left shoulder M19.012 and Primary osteoarthritis, right shoulder M19.011 [facility] [address] [place] [address] 11/04/2024 Austin Perez Primary osteoarthrit is of left knee M17.12 ; Left knee pain M25.562 ; 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 ; Encounter for other preprocedural examination Z01.818 and Encounter for preprocedural cardiovascular examination Z01.810 Assessments Encounter Date Diagnosis (ICD Code) Assessment Notes Treatment Notes Treatment Clinical Notes Section Notes 06/02/2024 Primary osteoarthritis of left k nee (ICD-10 - M17.12) Left knee pain Left knee osteoarthritis Left knee lateral tibial plateau fracture 4Closed fracture of left tibial plateau with routine healing (ICD-10 - S82.142D) Left knee pain Left knee osteoarthritis Left knee lateral tibial plateau fracture 4Primary osteoarthritis of left knee (ICD-10 - M17.12) Left knee pain Left knee osteoarthritis Left knee lateral tibial plateau fracture malunion 11/04/2024Left knee pain (ICD-10 - M25.562)11/04/2024Primary osteoarthritis of left knee (ICD-10 - M17.12)11/17/2024Primary osteoarthritis of left knee (ICD-10 - M17.12) Left knee pain Left knee posttraumatic arthritis 11/21/2024Primary osteoarthritis of left knee (ICD-10 - M17.12)12/04/2024 Aftercare following joint replacement surgery (ICD-10 - Z47.1)S/p left TKA /Status post left knee replacement (ICD-10 - Z96.652)S/p left TKA /Primary osteoarthritis, right shoulder (ICD-10 - M19.011) 01/12/2025Pain in right shoulder (ICD-10 - M25.511)01/19/2025ftercare following joint replacement surgery (ICD-10 - Z47.1)S/p left TKA /01/2025Status post left knee replacement (ICD-10 - Z96.652)S/p left TKA / Primary osteoarthritis, right shoulder (ICD-10 - M19.011)01/26/2025Pr osteoarthritis, left shoulder (ICD-10 - M19.012)01/12/2025Pain in left shoulder (ICD-10 - M25.512)11/04/2024arrier or suspected carrier of Methicillin resistant Staphylococcus aureus (ICD-10 - Z22.322)11/04/2024Encounter for other preprocedural examination (ICD-10 - Z01.818)01/12/2025Pr osteoarthritis, left shoulder (ICD-10 - M19.012)11/04/2024Encounter for preprocedural cardiovascular examination (ICD-10 - Z01.810)06/02/2024OtherDiscussed treatment options with patient and family. Patient has had some interval healing of her fr acture and callus formation. There is a portion [...] T ROM brace. Continue ice and anti-inflammatory asneeded for pain. Activity modification as needed for pain. Activity as tolerated. Continues her walker for ambulation. All questions and concerns were addressed. Patient was in agreement the treatment plan. We will plan to see the patient back in 2 to 3 months for repeat clinical and radiographic evaluation. Left knee pain Left knee osteoarthritis Left knee lateral tibial plateau fracture 06/30/2024OtherDiscussed treatment options with patient. Patient does have severe degenerative changes of her leftknee as well as deformity secondary to her [...] Left knee lateral tibial plateau fracture malunion 11/17/2024Other Discussed nonoperative and operative interventions with patient. Patient continues to have significant left knee pain despite nonsurgical management including ice, anti-inflammatories, activity modification, home exercise program, physical therapy, [...] Left knee pain Left knee posttraumatic arthritis 12/04/2024OtherDiscussed treatment options with patient and her daughter. At this time patient is doing very well.She is progressing well with therapy. Patient's flexion is already back to 95 degrees. Patient was encouraged to elevate leg with prop under heel to help get back to full extension. Patient to continue physical therapy and home exercises for any stretching and strengthening. May continue activity modification, rest, ice, elevation, and use of anti-inflammatories as needed for pain control. Patient was in agreement with treatment plan. All questions and concerns were addressed at the time of the appointment. Will plan to see patient back in 6 weeks for repeat clinical and radiographic evaluation. Patient was encouraged to call the office with any questions or concerns.S/p left TKA /OtherFor her bilateral shoulder osteoarthritis she is interested in corticosteroid injections. 01/19/2025OtherDiscussed treatment options with patient. At this time patient is doing very well and is advancing as expected. She is very happy with her progression and activity. She states she does get frustratedat times, but overall mobility has significantly improved [...] clinical and radiographic evaluation. Patient was encouraged tocall the office with any questions or concerns.S/p left TKA /OtherWe have discussed further treatments today. I did discuss that we could do glenohumeral joint injections today for her which she wants to do. We will follow-up otherwise as needed. Plan Of Treatment Pending Test Test Name Order Date Chest 2 views - 93879 11/04/2024 PT/ INR - 73796 11/04/2024 EKG 11/04/2024 CBC 11/04/2024 CMP 11/04/2024 MRSA (Bilateral Nares) PCR 11/04/2024 Home PT 03/24/2024 APTT 11/04/2024 UA with Reflex C & S 11/04/2024 CT KNEE LEFT WO CONTRAST 04/21/2024 SCC- KNEE 2 VIEW LEFT - 10520 01/07/2024 SCC- SHOULDER 3 VIEW RIGHT 07451 025 SCC- SHOULDER 3 VIEW LEFT 09477 01/13/20 RSS: KNEE LEFT NAVJOT AP,NAVJOT PA ,LEFT LAT,B [place] - 87348 71935 11/17/2024 RSS: KNEE POST OP RIGHT 3V AP,[place], [place] [address] 01/19/2025 RSS: KNEE POST OP LEFT 3V AP,LAT, PATELL A [address]6575 12/04/2024 RSS- PT- s/p total knee 2-3 x per week f or 6 weeks 11/04/2024 SCC- KNEE 2 VIEW LEFT - 06933 12/27/2023 SCC- KNEE 2 VIEW LEFT - 11228 04/21/2024 SCC- KNEE 2 VIEW LEFT - 30755 01/21/2024 SCC- KNEE 2 VIEW LEFT - 66652 02/18/2024 SCC- KNEE 2 VIEW LEFT - 00580 03/24/2024 Next Appt Details Provider Name:Austin Perez, 06/01/2025 10:10:00 AM, [address] [facility] , [place] [place] [address], [place], [address], Insurance Providers Payer Name Payer Address Payer Phone Subscriber Number Group Number Insured Name Patient Relationship to Insured Coverage Start Date Coverage End [place] [address] [id number] Yuly FINK - patient is the insuredAARP SUPPLEMENTPO [address] [place] [id number], CARYLSelf - patient is the insured Medications Administered Medication Instructions Date of Administration Dosage Notes BUPIVACAINE fGPCWQRCHBENY51/30/20254 mLDepo-Kvalst20 mLDepo-Medrol oXGisgpyh91/16/20241 kHpvtbcgsgk53/16/20242 hHjnjrjckdk70/30/20254 vRaanqyqypa05/14/20254 mLSENSORCAINE 0.5% mL Medical (General) History Medical History History ICD Code Atrial fibrillation HypertensionSurgical History Surgery Date(Month/Year) Left total knee replacement 11/21/2024
--- OUTSIDE RECORDS SUMMARY | 2025-05-25 08:36 | XMS_ITS | Clinical Summary ---
Author Organization [facility] Address [address], [address] [place] [address] Care Team Providers Care Supervisor [employer] Name Role Phone Unavailable Primary Care Provider Unavailabl e Social History Tobacco UseTypesPacks/DayYears UsedDateSmoking Tobacco: Never Assessed CommentsUnknownSex and Gender InformationValueDate RecordedSex Assigned at Usxjsf0311/15/2024 10:04 AM EDTLegal PkkVtyzqr24/02/2025 4:06 PM EDTGender IdentityNot on fileSexual OrientationNot on file Last Filed Vital Signs Vital SignReadingTime TakenCommentsBlood Pressure--Pulse--Temperature-- Respiratory Rate--Oxygen Saturation--Inhaled Oxygen Concentration--Ncrfpe94.3 kg (199 lb)11/18/2024 11:01 AM HWNKzlbdj390.5 cm (5' 3.98 )11/18/2024 11:01 AM EDT Body Mass Index34.18011/18/2024 11:01 AM EDT Plan of Treatment Health MaintenanceDue DateLast DoneCommentsDepression Fhxeuk2104/20/1960Hepatitis C lgszej0504/20/1966DTaP/Tdap/Td vaccine (1 - Tdap)1967Shingles vaccine (1 of 2)1998DEXA (modify frequency per FRAX score)2003Pneumococcal 50+ years Vaccine (2 of 2 - PCV20 or PCV21)Annual Wellness Visit (Medicare)11/18/2024Flu vaccine (#1)511/, 04/24/2022, 06/02/2021, Additional history existsCOVID-19 Vaccine ( season) 5107/30/2023, 08/28/2023, 05/13/2022, Additional history exists Respiratory Syncytial Virus (RSV) or age 60 yrs+Fasrrcbeo97/05/2024 Hepatitis A vaccineAged OutNo longer eligible based on patient's age to complete this topicHepatitis B vaccineAged OutNo longer eligible based on patient's age to complete this topicHib vaccineAged OutNo longer eligible based on patient's age to complete this topicMeningococcal (ACWY) vaccineAged OutNo longer eligible based on patient's age to complete this topicMeningococcal B vaccineAged OutNo longer eligible based on patient's age to complete this topicPolio vaccineAged OutNo longer eligible based on patient's age to complete this topic Insurance
--- OUTSIDE RECORDS SUMMARY | 2025-05-25 08:36 | XMS_ITS | Clinical Summary ---
Author Organization [facility] Address [address] [place] [address] Care Team Providers Care Compressor Service Technician Name Role Phone Vashti Engle MD Primary Care Provider [phone] Allergies No known active allergies Medications MedicationSigDispense QuantityRefillsLast FilledStart DateEnd DateStatus acetaminophen 500 mg capsule Take 500 mg by mouth every 6 (six) hours if needed.Active Eliquis 5 mg tablet Take 5 mg by mouth in the morning and at bedtime.Active atorvastatin (Lipitor) 40 mg tablet Take 40 mg by mouth in the morning.Active famotidine (Pepcid) 20 mg tablet Take by mouth in the morning.Active metoprolol tartrate (Lopressor) 100 mg tablet Take 100 mg by mouth twice a day.11/26/2022ctive verapamil SR (Calan-SR) 180 mg ER tablet Take 180 mg by mouth at bedtime.Active Active Problems ProblemNoted DateDiagnosed DatePre-op acdrnidnqy55/04/2025Longstanding persistent atrial xhwukefyyqnq00/04/2025ilateral leg edema11/16/2024Venous xiusweiblpfwj65/04/2025Peripheral arterial lclafas4211/16/2024Essential xaxdcaibfwdb42/04/1871Verfygquwxmylw17/04/2025ritical limb ischemia of left lower extremity with qemkcxrw89/20/2024Venous ulcer of left leg01/03/2024 Encounters DateTypeDepartmentCare UhmnWqchzxofdzc16/07/2025Telephone [facility] [address] [place] [address] Marisela Hayes MA 04/15/2025Telephone [facility] [address] [place] [address] Marisela Hayes MA from Last 3 Months Family History Medical HistoryRelationNameCommentsHeart failureFatherHeart attackMotherCoronary artery diseaseSisterRelationNameStatusCommentsFatherDeceasedMotherDeceasedSister Social History Tobacco UseTypesPacks/DayYears UsedDateSmoking Tobacco: NeverSmokeless Tobacco: Never Tobacco Cessation:Counseling Given: Not Answered Alcohol UseStandard Drinks/WeekCommentsYes0 (1 standard drink = 0.6 oz pure alcohol)occasionalCommentsUnknownSex and Gender InformationValueDate RecordedSex Assigned at PssccPrbnbl25/05/2025 3:32 PM EDTLegal SexFemale 11/05/2024 4:57 PM EDTGender WlyuwwksIyshrh21/05/2025 3:32 PM EDTSexual OrientationHeterosexual or Enggsayf59/05/2025 3:32 PM EDT Last Filed Vital Signs Vital SignReadingTime TakenCommentsBlood Rnpeerqe958/9302/19/2025 11:35 AM EDT Khvii877902/19/2025 11:35 AM EDTTemperature--Respiratory Rate--Oxygen Saturation 98%02/19/2025 11:35 AM EDTInhaled Oxygen Concentration--Cgdzdk51 kg (194 lb) 02/19/2025 11:35 AM VCWIcnbof144.6 cm (5' 4 )02/19/2025 11:35 AM EDTBody Mass Index33.308 11:35 AM EDT Plan of Treatment Health MaintenanceDue DateLast DoneCommentsMedicare Annual Wellness (AWV) 1948Depression Xuxtefbfy51/06/1960Adult Upkkqvm8404/20/1970Zoster Vaccines (1 of 2)1998Fall Risk Njxiavgqg70/06/2013COVID-19 Vaccine ( season), 08/28/2023, 05/13/2022, Additional history exists Influenza Vaccine (#1), 05/29/2023, 04/24/2022, Additional history existsPneumococcal Vaccine: 50+ NzyjmIhlsrxkam27/03/2017, 05/31/2016HIB VaccinesAged OutNo longer eligible based on patient's age to complete this topic HPV VaccinesAged OutNo longer eligible based on patient's age to complete this topicIPV VaccinesAged OutNo longer eligible based on patient's age to complete this topicMeningococcal B VaccineAged OutNo longer eligible based on patient's age to complete this topicMeningococcal VaccineAged OutNo longer eligible based on patient's age to complete this topicRotavirus VaccinesAged OutNo longer eligible based on patient's age to complete this topic Insurance Care Teams Team MemberRelationshipSpecialtyStart DateEnd Date Vashti Engle MD Sobia6 Cassie Prasad [facility] [place] [address] [facility]11/11/24
--- OUTSIDE RECORDS SUMMARY | 2025-05-25 08:36 | XMS_ITS | CCD ---
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 Repairer Name Role Phone Wayne Mccallum Unavailable Jose Najera II Unavailable MD Katelynn Clark Primary Care Provider MD Jose Najera II Attending Provider DR KATELYNN CLARK Attending Unavailable AMBER, DR KATELYNN Porter Primary Care Unavailable AMBER, DR KATELYNN Porter Admitting Unavailable DR TIM TORREZ Consulting Unavailable AMBER, DR KATELYNN Porter Consulting [...] Primary Care Unava ilable Linnea MELENDEZ, Bella Katarina Admitting Unavailable Karina Leiva Consulting Unavailable Matti [...] Care Provider Katelynn Clark MD Attending Provider Katelynn Clark MD Primary Care Provider [phone] Allergies Allergy ClassificationReported Allergen(s)Allergy TypeDate of OnsetReaction(s) Facility (6 sources)patient allergy list reviewed by nurse or physiciaPropensity to adverse zmxkpcjpy62-74-3444Vufsznw:[facility] Adjug Other (6 sources)Allergies ReconciledPropensity to adverse reactionsUnknoSt. [facility] Adjug Other Medications Current Medications MedicationDrug Class(es)DatesSig (Normalized)Sig (Original)acetaminophen 500 mg oral tablet (20 sources)Start: 30-22-9664fden 1 tablet by mouth four times daily as needed for painAcetaminophen 500 mg Tablet Active 500 MG PO Four times daily as needed for Pain 120 30 October 12:00am Complies with drug therapyStart: 10-25-2021 End: 26-42-2389lvrw 1000 mg by mouth every eight hoursAcetaminophen Discontinued 1000 MG PO Q8H October 25, 2021 12:00am October 31, 2021 2:03pmStart: 10-06-2021 End: 51-29-9229bsjp 2 tablets by mouth every eight hoursAcetaminophen 500 mg Tablet Discontinued 1000 MG PO Q8H October 25, 2021 12:00am October 31, 2021 2: 03pmtake 1 capsule by mouth every six hours as neededacetaminophen 500 mg capsule Take 1 capsule (500 mg total) by mouth every 6 (six) hours as needed. A ctiveamoxicillin 500 mg oral capsule (7 sources)Penicillin-class Antibacterialtake 1 capsule by mouth every eight hoursAmoxicillin 500 MG 1 capsule Orally Three times a day Activeamoxicillin 875 mg / clavulanate 125 mg oral tablet (10 sources)Penicillin-class Antibacterialtake 1 tablet by mouth every twelve hoursAmoxicillin-Pot Clavulanate 875-125 MG 1 tablet Orally every 12 hrs for 7 days Activeapixaban 5 mg oral tablet (20 sources)Factor Xa InhibitorStart: 14-00-6559klyw 1 tablet by mouth twice dailyApixaban (Eliquis) 5 mg tablet Active 0 .ROUTE .COMPLEX 60 January 19, 2025 4:32pm Take 1 tablet by mouth twice daily Complies with drug therapyStart: 08-30-2023 End: 92-02-0924yvhi 1 tablet by mouth twice dailyApixaban (Eliquis) 5 mg tablet Discontinued 5 MG PO Twice daily 56 November 03, 2024 3:00pm January 19, 2025 4:32pmdiclofenac potassium 50 mg oral tablet (20 sources)Nonsteroidal Anti-inflammatory DrugStart: 65-58-7769ovyg 1 tablet by mouth twice dailyDiclofenac Potassium 50 mg tablet Active 50 MG PO Twice daily 180 March 09, 2025 12:00am Complies with drug therapyStart: 10-31-2024 End: 14-10-6774hyvdm 2 g topically four times dailyDiclofenac Sodium 1 % gel Discontinued 2 GM TOPICAL Four times daily October 31, 2024 12:00am 2024 1:28pm apply to single elbow, wrist or hand; for hand includes palm/fingers/back of handStart: 10-31-2024 End: 43-00-9179eeqvo 2 g topically four times dailyDiclofenac Sodium 1 % gel Discontinued 2 GM TOPICAL Four times daily October 31, 2024 12:00am 2024 1:28pm apply to single elbow, wrist or hand; for hand includes palm/fingers/back of handStart: 02-86-1272mdyc 1 tablet by mouth once daily as neededdiclofenac (VOLTAREN) 75 mg EC tablet Take 1 tablet (75 mg total) by mouth daily as needed. 08/29/2023 ActiveStart: 56-95-1850Hphekdbk 1 % apply 1-2 grams to affected area Externally 4x's a day for 30 days Jan, ActiveStart: 59-51-2524Ldqdjgvb 1 % apply 1-2 grams to affected area Externally 4x's a day for 30 days Jan, ActiveStart: 12-10-2022 End: 62-33-9002ojzs 1 tablet by mouth twice dailyDiclofenac Sodium 75 mg tablet,delayed release (DR/EC) Discontinued 75 MG PO Twice daily December 13, 2023 12:00am December 13, 2023 2:58pmStart: 11-27-2017 End: 57-45-0105cstl 1 tablet by mouth twice dailyDiclofenac Sodium 75 mg tablet,delayed release (DR/EC) Discontinued 75 MG PO Twice daily October 10, 2021 12:00am October 25, 2021 2:10pmdocusate sodium 50 mg / sennosides, senior care 8.6 mg oral tablet (3 sources)Start: 20-47-2838gkgp 2 tablets by mouth every twenty-four hours Senokot S 8.6-50 MG 2 tablets Orally Once a day for 30 day(s) MED TO BED UPON DISCHARGE DOS:10/24/2021 Sep, Activeloperamide hydrochloride 2 mg oral tablet (2 sources)Opioid Agonisttake 1 tablet by mouth four times daily as needed for diarrhealoperamide (IMODIUM A-D) 2 mg tablet Take 1 tablet (2 mg total) by mouth 4 (four) times a day as needed for diarrhea. Activeondansetron 8 mg oral tablet (3 sources)Serotonin-3 Receptor AntagonistStart: 10-12-4594nlkc 1 tablet by mouth three times daily as needed for nauseaOndansetron HCl 8 MG 1 tablet as needed for nausea Orally TID for 10 days MED TO BED UPON DISCHARGEDOS:10/24/2021 Sep, ActivetraMADol hydrochloride 50 mg oral tablet (20 sources)Opioid AgonistStart: 11-57-0755sjhu 1 tablet by mouth every six hours as neededtraMADoL (ULTRAM) 50 mg tablet Take 1 tablet (50 mg total) by mouth every 6 (six) hours as needed. 12/26/2023 ActiveStart: 10-25-2021 End: 06-87-4856yunf 1 tablet by mouth every four hours as needed for pain Tramadol 50 mg Tablet Discontinued 50 MG PO Q4H as needed for Pain Scale 1 - 5 October 25, 2021 12:00am October 31, 2021 2:03pmStart: 51-03-5068hxdp 1 tablet by mouth every six hours as needed for paintraMADol HCl 50 MG 1 tablet as needed for pain Orally every 6 hrs for 10 days MED TO BED UPON DISCHARGE DOS:10/24/2021 Sep, ActiveStart: 07-28-2021 End: 05-21-1050qzql 1 tablet by mouth twice daily as needed for painTramadol 50 mg tablet Discontinued 50 MG PO Twice daily as needed for Pain October 10, 2021 12:00amApril 2021 9:50am Completed/Discontinued Medications MedicationDrug Class(es)DatesSig (Normalized)Sig (Original)ascorbic acid 500 mg oral tablet (18 sources)Vitamin CStart: 10-25-2021 End: 90-91-0328nzzw 1 tablet by mouth twice daily at mealtimeAscorbic Acid (Vitamin C) (Vitamin C) 500 mg Tablet Discontinued 500 MG PO Twice daily with meals 60 October 31, 2021 12:00am October 15, 2023 11:28amaspirin 81 mg delayed release oral tablet (20 sources)Platelet Aggregation Inhibitor, Nonsteroidal Anti-inflammatory Drug Start: 10-25-2021 End: 68-17-9625sgvy 1 tablet by mouth twice dailyAspirin 81 mg Tablet,Delayed Release (Dr/Ec) Discontinued 81 MG PO Twice daily 40 October 31, 2021 12:00am October 15, 2023 11:28amStart: 10-46-1628dcww 1 tablet by mouth twice daily Aspirin 81 MG 1 tablet Orally BID for 35 days MED TO BED UPON DISCHARGE DOS:10/24/2021 Sep, Activeatorvastatin 40 mg oral tablet (15 sources)HMG-CoA Reductase InhibitorStart: 09-16-2023 End: 12-49-7796exqv 1 tablet by mouth once dailyAtorvastatin 40 mg tablet Discontinued 40 MG PO Daily July 13, 2024 1:00am March 09, 2025 1:36pm calcium carbonate 1250 mg / cholecalciferol 200 unt oral tablet (2 sources)Vitamin DStart: 10-25-2021 End: 38-04-8951fuvw 1 tablet by mouth twice dailyCalcium Carbonate-Vitamin D3 (Oyster Shell Calcium-Vit D3) 500 mg-5 mcg (200 unit) Tablet Discontinued 1 TAB PO Twice daily 60 October 31, 2021 12:00am October 15, 2023 11:28amCalcium Carbonate-Vitamin D3 (Oyster Shell Calcium-Vit D3) 500 mg-5 mcg (200 unit) Tablet (16 sources)Start: 10-31-2021 End: 80-82-0595moao 1 tablet by mouth twice dailyCalcium Carbonate-Vitamin D3 (Oyster Shell Calcium-Vit D3) 500 mg-5 mcg (200 unit) Tablet Discontinued 1 TAB PO Twice daily 60 30 October 30, 2021 11:00pm October 15, 2023 10:28amStart: 10-31-2021 End: 41-69-0004rdpf 1 tablet by mouth twice dailyCalcium Carbonate-Vitamin D3 (Oyster Shell Calcium-Vit D3) 500 mg-5 mcg (200 unit) Tablet Discontinued 1 TAB PO Twice daily 60 30 October 31, 2021 12:00am October 15, 2023 11:28amStart: 50-61-9009dfru 1 tablet by mouth twice dailyCalcium Carbonate-Vitamin D3 (Oyster Shell Calcium-Vit D3) 500 mg-5 mcg (200 unit) Tablet Active 1 TAB PO Twice daily 60 30 October 31, 2021 12:00amStart: 86-03-4614qwzu 1 tablet by mouth twice dailyCalcium Carbonate-Vitamin D3 (Oyster Shell Calcium-Vit D3) 500 mg-5 mcg (200 unit) Tablet Active 1 TAB PO Twice daily 60 30 October 30, 2021 11:00pm Start: 10-25-2021 End: 45-79-9617xdxy 1 tablet by mouth twice dailyCalcium Carbonate-Vitamin D3 (Oyster Shell Calcium-Vit D3) 500 mg-5 mcg (200 unit) Tablet Discontinued 1 TAB PO Twice daily October 25, 2021 12:00am October 31, 2021 2:03pmStart: 10-25-2021 End: 97-56-5999kazl 1 tablet by mouth twice dailyCalcium Carbonate-Vitamin D3 (Oyster Shell Calcium-Vit D3) 500 mg-5 mcg (200 unit) Tablet Discontinued 1 TAB PO Twice daily October 24, 2021 11:00pm October 31, 2021 1:03pmcefadroxil 500 mg oral capsule (12 sources)Cephalosporin AntibacterialStart: 10-25-2021 End: 27-09-7319csin 1 capsule by mouth twice dailyCefadroxil 500 mg Capsule Discontinued 500 MG PO Twice daily October 25, 2021 12:00am October 31, 2021 2:03pmStart: 90-59-4115oonm 1 capsule by mouth every twelve hoursCefadroxil 500 MG 1 tablet Orally every 12 hrs for 7 days MED TO BED UPON DISCHARGE DOS:10/24/2021 24 Mar, 2022 Activecelecoxib 200 mg oral capsule (20 sources)Nonsteroidal Anti-inflammatory DrugStart: 10-06-2021 End: 01-26-0684kxul 1 capsule by mouth twice dailyCelecoxib 200 mg Capsule Discontinued 200 MG PO Twice daily October 25, 2021 12:00am October 31, 2021 2:03pmcephalexin 500 mg oral capsule (6 sources)Cephalosporin AntibacterialStart: 10-15-2023 End: 00-23-6075pdgh 1 capsule by mouth three times dailyCephalexin 500 mg capsule Discontinued 500 MG PO Three times daily 02 02October 15, 2023 12:00am May 30, 2024 12:01pmciprofloxacin 3 mg/ml ophthalmic solution (1 source)Quinolone AntimicrobialStart: 12-30-2024 End: 42-64-9338Ocypavsjpoumm Hcl 0.3 % drops Discontinued 0 OPHTHALMIC .COMPLEX December 30, 2024 12:00am March 09, 2025 1:36pm put 1-2 drps in affected eye(s) every 2hr up to 8 times/day x2days; then 4 times/day x5days Eye-Both doxycycline hyclate 100 mg oral capsule (1 source)Tetracycline-class DrugStart: 07-13-2024 End: 74-26-8524axzx 1 capsule by mouth twice dailyDoxycycline Hyclate 100 mg capsule Discontinued 100 MG PO Twice daily 26 01July 13, 2024 1:00am March 09, 2025 1:56pmfamotidine 20 mg oral tablet (20 sources)Histamine-2 Receptor AntagonistStart: 10-10-2021 End: 33-08-0800elgn 1 tablet by mouth once dailyFamotidine 20 mg Tablet Discontinued 20 MG PO Daily October 31, 2021 12:00am April 14, 2024 8:19amfurosemide 40 mg oral tablet (20 sources)Loop DiureticStart: 04-14-2024 End: 22-78-9804bcwp 1 tablet by mouth once dailyFurosemide (Lasix) 40 mg tablet Discontinued 40 MG PO Daily July 01, 2024 1:06pm March 09, 2025 1:39pmtake 1 tablet by mouth twice dailyfurosemide (LASIX) 40 mg tablet Take 1 tablet (40 mg total) by mouth 2 (two) times a day. Activehyaluronate (20 sources)Start: 83-68-7624Ifpxrsa Mar,Start: 03-39-2344Taiehyp Feb,Start: 60-88-0984Wykkfrm Feb,Start: 65-67-3336Hyahsop Feb,hyoscyamine sulfate 0.125 mg disintegrating oral tablet (18 sources)Start: 10-31-2021 End: 68-63-7932mwnt 1 tablet by mouth four times daily as neededHyoscyamine Sulfate (Anaspaz) 0.125 mg Tablet,Disintegrating Discontinued 0.125 MG PO Four times daily as needed for IBS 120 October 31, 2021 12:00am November 03, 2024 1:28pmStart: 10-10-2021 End: 46-65-3572ythu 1 tablet by mouth four times daily as neededHyoscyamine Sulfate 0.125 mg Tablet, Sublingual Discontinued 0.125 MG PO Four times daily as neededfor IBS October 10, 2021 12:00am October 31, 2021 2:03pmmelatonin 5 mg oral tablet (9 sources)Start: 10-31-2021 End: 56-47-4231jnvb 1 tablet by mouth once daily at bedtime as neededMelatonin 5 mg Tablet Discontinued 5 MG PO Daily at bedtime as needed for Insomnia October 31, 2021 12:00am October 15, 2023 11:29am24 hr metoprolol succinate 100 mg extended release oral tablet (20 sources)beta-Adrenergic BlockerStart: 66-67-3664qmqy 1 tablet by mouth every twenty-four hours in the morningmetoprolol succinate XL (TOPROL XL) 100 mg 24 hr tablet Take 1 tablet (100 mg total) by mouth in the morning. 08/29/2023 Active Start: 08-29-2023 End: 30-18-2826akrc 1 tablet by mouth once dailyMetoprolol Succinate 100 mg tablet extended release 24 hr Discontinued 100 MG PO Daily July 13, 2024 1:00am March 09, 2025 1:36pmStart: 10-31-2021 End: 39-30-3064lptg 1 tablet by mouth in the morningmetoprolol tartrate (Lopressor) 100 MG tablet Take 100 mg by mouth in the morning and 100 mg before bedtime. 11/26/2022 ActiveStart: 10-10-2021 End: 14-88-3992dvam 1 tablet by mouth once daily in the morningMetoprolol Tartrate 100 mg tablet Discontinued 100 MG PO Every morning October 10, 2021 12:00am October 31, 2021 2:03pmtake 1 tablet by mouth every twenty-four hours Metoprolol Succinate ER 100 MG 1 tablet Orally Once a day for 90 days Active oxyCODONE hydrochloride 5 mg oral capsule (20 sources)Opioid AgonistStart: 12-01-2024 End: 23-61-9889rydy 1 capsule by mouth every eight hours as needed for pain Oxycodone 5 mg capsule Discontinued 5 MG PO Every 8 hours as needed for pain 20 7 December 12, 2024 December 30, 2024 2:16pmStart: 10-31-2021 End: 51-52-6048vsln 1 tablet by mouth four times daily as needed for pain Oxycodone 5 mg Tablet Discontinued 5 MG PO Four times daily as needed for Pain (Scale Score 7-10) 20 5 October 31, 2021 October 15, 2023 11:29amStart: 10-25-2021 End: 81-64-7227nbkq 1 tablet by mouth every four hours as needed for pain Oxycodone 5 mg Tablet Discontinued 5 MG PO Every 4 hours as needed for Pain Scale 6 - 10 October 25, 2021 October 31, 2021 2:03pmStart: 95-40-2439gflo 1 tablet by mouth every four hours as needed for painoxyCODONE HCl 5 MG 1 tablet as needed for pain Orally every 4 hrs for 10 days MED TO BED UPON DISCHARGE DOS:10/24/2021 Sep, Activepolyethylene glycol 3350 91258 mg powder for oral solution (12 sources)Osmotic LaxativeStart: 10-06-2021 End: 40-39-9653Sdcocdcjvumh Glycol 3350 (Miralax) 17 gram Powder In Packet Discontinued 17 GM PO Daily as needed for Constipation October 25, 2021 12:00am October 31, 2021 2:03pmmicroencapsulated potassium chloride 20 meq extended release oral tablet (19 sources)Start: 04-14-2024 End: 19-88-1617Cfqmgwcdp Chloride (Klor-Con M20) 20 mEq tablet,ER particles/crystals Discontinued 20 MEQ PO Daily July 01, 2024 4:41pm November 03, 2024 1:08pmpotassium chloride (K-TAB,KLOR-CON) 10 MEQ CR tablet Take 1 tablet (10 mEq total) by mouth in the morning. ActiveraNITIdine 150 mg oral tablet (20 sources)Histamine-2 Receptor AntagonistStart: 08-29-2023 End: 45-13-5237xyca 1 tablet by mouth once daily at bedtimeRanitidine Hcl 150 mg tablet Discontinued 150 MG PO Daily at bedtime August 29, 2023 1:00am October 15, 2023 11:30amtake 1 tablet by mouth once daily at bedtimeZantac 150 MG 1 tablet at bedtime Orally Once a day prn ActiveTheraputic Injection (20 sources)Start: 98-68-9511Afkxqyduyg Injection Feb,triamcinolone acetonide 40 mg/ml injectable suspension (20 sources)CorticosteroidStart: 95-15-7474Lioccjl-40 Feb, 120 mgStart: 77-13-7678Vavvnzj-40 Feb, 40 mgStart: 44-27-3557Zoleguo -40 mg May, 40 mgStart: 77-30-2356Zfuvgil -40 mg Jul, 40 mgStart: 11-04-2018 Kenalog -40 mg Oct, 40 mgStart: 64-68-4878Luljpvl -40 mg November, 40 mg24 hr verapamil hydrochloride 180 mg extended release oral capsule (20 sources)Calcium Channel BlockerStart: 07-13-2024 End: 23-98-4063ehky 1 capsule by mouth once dailyVerapamil 180 mg capsule,ext rel. pellets 24 hr Discontinued 180 MG PO Daily July 13, 2024 1:00am March 09, 2025 1:36pmStart: 09-27-2023 End: 11-81-0920pokz 1 tablet by mouth once dailyVerapamil 180 mg tablet extended release Active 0 .ROUTE .COMPLEX February 02, 2025 11:37am Take 1tablet by mouth once daily for 90 days Complies with drug therapyStart: 10-10-2021 End: 66-80-3274wasu 1 tablet by mouth in the morningverapamil SR (Calan SR) 180 MG ER tablet Take 180 mg by mouth in the morning. 10/11/2022 Active Problems Active Problems Problem ClassificationProblemDateDocumented DateEpisodic/ChronicAbdominal pain (6 sources)Generalized abdominal pain; Translations: [Generalized abdominal pain]EpisodicAdministrative/social admission (9 sources)Other reduced mobility; Translations: [Impaired mobility and activities of daily living]65-75-8244GztxhmwsHgdiurq on above:Problem List clean-up per request of Phys. EHR CmteCardiac dysrhythmias (10 sources)Paroxysmal atrial fibrillation; Translations: [Paroxysmal atrial fibrillation]Onset: 421591-32-8743SakoabvDblkpclavig and hemorrhagic disorders (2 sources)Spontaneous ecchymosesEpisodicDisorders of lipid metabolism (4 sources)Hyperlipidemia; Translations: [Hyperlipidemia, unspecified]Onset: 62-92-2998UttwhpzCtcnbqzmg hypertension (20 sources)Hypertensive disorder; Translations: [Essential (primary) hypertension]Onset: 043688-10-6536ElobtbtHshouso on above:Problem List clean-up per request of Phys. EHR CmteGangrene (5 sources)Critical lower limb ischemia ; Translations: [Atherosclerosis of [place] arteries of extremities with gangrene, left leg]Onset: 01-03-2024 75-27-7590KdykzjuYnbhqqntrcqmo and screening for infectious disease (6 sources)Vaccination given; Translations: [Encounter for immunization]Episodic Inflammation; infection of eye (except that caused by tuberculosis or sexually transmitteddisease) (2 sources)Conjunctivitis of left eye; Translations: [Unspecified conjunctivitis]58-28-3322RaltupyyTnthdkntnqwsko (20 sources)Primary gonarthrosis, bilateral; Translations: [Bilateral primary osteoarthritis of knee]Onset: 05-12-2021 Resolved: 14-08-3461MwxepqxBspkssl on above:Problem List clean-up per request of Phys. EHR CmteOther acquired deformities (3 sources)Lumbar spondylolisthesis; Translations: [Spondylolisthesis, lumbar region]EpisodicOther acquired deformities (1 source)Spondylolisthesis, lumbar regionEpisodicOther aftercare (20 sources)Patient encounter status; Translations: [Aftercare following joint replacement surgery]ChronicOther aftercare (3 sources)Aftercare following joint replacement surgeryOnset: 11-16-2021 Resolved: 34-79-0233EfvjxgeUtddu circulatory disease (6 sources)Elevated blood-pressure reading without diagnosis of hypertension; Translations: [Elevated blood-pressure reading, without diagnosis of hypertension]EpisodicOther connective tissue disease (20 sources)History of total knee arthroplasty; Translations: [Presence of right artificial knee joint]22-04-1950BximqmgXrfckpi on above:Problem List clean-up per request of Phys. EHR CmteOther connective tissue disease (6 sources)Presence of right artificial knee jointOnset: 11-16-2021 Resolved: 60-62-8195FpwaxubZemdl connective tissue disease (1 source)Presence of left artificial knee joint; Translations: [Presence of left artificial knee joint]Onset: 77-48-2392ThzqmupWkuso connective tissue disease (5 sources)Pain in left foot; Translations: [PAIN IN LEFT FOOT]Onset: 12-12-2022 EpisodicOther connective tissue disease (20 sources)Adhesive capsulitis of shoulder; Translations: [Adhesive capsulitis of unspecified shoulder]EpisodicOther connective tissue disease (1 source)Adhesive capsulitis of unspecified shoulder; Translations: [Frozen shoulder]EpisodicOther diseases of veins and lymphatics (3 sources)Lymphedema of bilateral lower limbs; Translations: [Lymphedema, not elsewhere classified]ChronicOther gastrointestinal disorders (9 sources)Irritable bowel syndrome; Translations: [Irritable bowel syndrome without diarrhea]69-64-9112IxrygvwEblmcnk on above:Problem List clean-up per request of Phys. EHR CmteOther injuries and conditions due to external causes (6 sources)History of fall; Translations: [History of falling]EpisodicOther lower respiratory disease (1 source)Acute lower respiratory tract infection; Translations: [Unspecified acute lower respiratory infection]59-67-0566WhsftikmAcfxg nervous system disorders (20 sources)Chronic pain; Translations: [Other chronic pain]ChronicOther nervous system disorders (4 sources)Other chronic pain; Translations: [Other chronic pain G89.29]Onset: 05-12-2021 Resolved: 47-47-3725XvjlaijSqshg nervous system disorders (10 sources)Polyneuropathy; Translations: [Polyneuropathy, unspecified]Chronic Other nervous system disorders (2 sources)Polyneuropathy, unspecifiedChronicOther nervous system disorders (9 sources)Postoperative pain ; Translations: [Other acute postprocedural pain] 11-90-1068EvpladntKzlpwvc on above:Problem List clean-up per request of Phys. EHR CmteOther nutritional; endocrine; and metabolic disorders (12 sources)Obese class I; Translations: [Body mass index (BMI) 31.0-31.9, adult]ChronicOther nutritional; endocrine; and metabolic disorders (6 sources)Body mass index 30+ - obesity; Translations: [Body mass index 36.0- 36.9, adult]Onset: 76-17-2615NvtxipfLwzsz nutritional; endocrine; and metabolic disorders (6 sources)Obese class II; Translations: [Body mass index 37.0-37.9, adult] Onset: 31-34-1599ZrndmljOjndj nutritional; endocrine; and metabolic disorders (2 sources)Obesity; Translations: [Class 1 obesity with body mass index (BMI) of 34.0 to 34.9 in adult]11-60-9675DunzdlfFssnpbdzjo and visceral atherosclerosis (15 sources)Peripheral vascular disease; Translations: [Peripheral vascular disease, unspecified]ChronicPhlebitis; thrombophlebitis and thromboembolism (12 sources)Deep venous thrombosis of lower extremity; Translations: [Acute embolism and thrombosis of right femoral vein]44-35-6246TmbvdpcaExqfqovu codes; unclassified (11 sources)Patient encounter status; Translations: [Encounter for prophylactic measures, unspecified]49-54-2689MmezfkuwWlcavnu on above:Problem List clean-up per request of Phys. EHR CmteResidual codes; unclassified (5 sources)Edema of lower extremity; Translations: [Localized edema]11-18-2024 EpisodicResidual codes; unclassified (1 source)Preoperative dsygd51-57-2230BxukwbekCwvk and subcutaneous tissue infections (1 source)Cellulitis of left toeEpisodicSpondylosis; intervertebral disc disorders; other back problems (15 sources)Lumbar spondylosis with myelopathy; Translations: [Other spondylosis with myelopathy, lumbar region]Onset: 24-85-2164VqhngulBiuzfygpksf; intervertebral disc disorders; other back problems (20 sources)Low back pain; Translations: [Lumbar pain]EpisodicUnclassified (2 sources)2 month follow upOnset: 66-25-5490Inbyraec veins of lower extremity (14 sources)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; Translations: [Venous stasisulcer of left lower extremity]Onset: 308496-94-9776Gscqpzrt Past or Other Problems Problem ClassificationProblemDateDocumented DateEpisodic/ChronicOther ear and sense organ disorders (6 sources)Impacted cerumen; Translations: [Impacted cerumen]Onset: 01-25-2016 EpisodicOther gastrointestinal disorders (6 sources)Diarrhea; Translations: [Diarrhea]Onset: 64-41-5835MlnxxlsoKgxpm non- traumatic joint disorders (4 sources)Pain in right knee; Translations: [Right knee pain M25.561]Onset: 05-12-2021 Resolved: 11-07-6781RwyymhcyBzthe non-traumatic joint disorders (4 sources)Pain in left knee; Translations: [Left knee pain M25.562]Onset: 05-12-2021 Resolved: 69-64-2889WldacfsxMdwya non-traumatic joint disorders (6 sources)Arthralgia of the lower leg; Translations: [Pain in right knee]Onset: 64-99-9483EncepawdGxviy upper respiratory infections (6 sources)Acute maxillary sinusitis; Translations: [Acute recurrent maxillary sinusitis]Onset: 33-49-5576KcmjdhaiWrpudfdt codes; unclassified (5 sources)Localized edema; Translations: [Localized edema]Onset: 11-14-2024 EpisodicResidual codes; unclassified (1 source)Finding of systemic arterial pressure; Translations: [Other general symptoms and signs]97-63-6665ZbpnaiufOjazehhmezss (1 source)Lumbar pain; Translations: [Lumbar pain]Unclassified (2 sources)Lumbar pain M54.50 Results Test NameValueInterpretationReference RangeFacilityOffice Visiton 02-19-2025 Follow-up [id number] Kami Fink 1950 F Date Provider Department Center 02/19/2025 [id number] MATA LANEY [facility] Family History Problem Relation Age of Onset Heart attack Mother Heart failure Father Coronary artery disease Sister Family Status - Relation Status Age at Mother Father Sister Level of Service:55231 [place] OFFICE/OUTPATIENT ESTABLISHED MOD MDM 30 MIN Reason for Visit and Comments: 2 month follow up [Other] Atrial Fibrillation [80] Hypertension [192185] Hyperlipidemia [182] Recent Echo [Other] Holter monitor [Other] MULLIGAN with being out in the heat [Other][facility] 36on [id number] Khoury, MD Physician Signed 11/28/2024 Copy I reviewed with the patient 3 days Holter monitor and it shows A-fib all the time and her ventricular rate is mostly controlled, continue current management. Please inform the patient LVM to inform patient of Dr. Mata's findings and recommendation.Normal [facility] HospitalXR KNEE LEFT (3 VIEWS)on 86-34-2242VL KNEE LEFT (3 VIEWS)RADRPT EXAMINATION: XR KNEE LEFT (3 VIEWS), 12/04/2024 [...] Signed by: Jada Lopez MD 12/05/24 Final resultNormBlanchard Valley Health System Bluffton HospitalComment on above:Order Comment: Post op left 3V AP, LAT, Muekvoz29as [id number] reviewed with the patient 3 days Holter monitor and it shows A-fib all the time and her ventricular rate is mostly controlled, continue current management. Please inform the patientNormalUniversAdena Fayette Medical Center.eGFRon 24-67-8204BNG/1.73 sq M.predicted MDRD (S/P/Bld) [Vol rate/Area]mL/min/{1.73_m2} Normal>=60[facility] CenterComment on above:Result Comment: [facility] have implemented the eGFR calculation approach that does not havea coefficient for race and that conforms to [...] maximum of SCr/? or 1 Age = yearsPerformed By: #### EGFR ####[address] [address]Kwgdp Metabolic Profileon 21-95-0305Cdccv gap [Moles/Vol] 6 mmol/LNormal4-12[facility] Medical CenterComment on above:Performed By: #### HGBHCT #### [address] [address]BDL Crea Ratio16.9 tcimjHyvxzd39.0-25.0[facility] Medical CenterComment on above:Performed By: #### HGBHCT #### [address] [address]Trgpsij [Mass/Vol]8.5 mg/dLLow8.6-10.3BUniversity Hospitals Elyria Medical CenterComment on above:Performed By: #### HGBHCT #### [address] [address]Nadtvsnx [Moles/Vol]104 mmol/MXvmslb66-401FnovuaofxUniversity Hospitals Parma Medical CenterComment on above:Performed By: #### HGBHCT #### [address] [address]YK9 [Moles/Vol]27 mmol/JXyzpfu64-74EzdrmyfakUniversity Hospitals Parma Medical CenterComment on above:Performed By: #### HGBHCT #### [address] [address]Rvprdcjpbk [Mass/Vol]0.89 mg/dLNormal0.60-1.20[facility] Medical CenterComment on above:Performed By: #### HGBHCT #### [address] [address]Svqanwo [Mass/Vol]108 mg/bMIcck02-39AtbowxrmjUniversity Hospitals Parma Medical CenterComment on above:Performed By: #### HGBHCT #### [address] [address]Fnyiuuwbx [Moles/Vol]4.1 mmol/LNormal3.4-4.8BUniversity Hospitals Elyria Medical CenterComment on above:Performed By: #### HGBHCT #### [address] [address]Qxlxoy [Moles/Vol]137 mmol/EIpkkpr277-981SygnsmyuqUniversity Hospitals Parma Medical CenterComment on above:Performed By: #### HGBHCT #### [address] [address]Cxrv nitrogen [Mass/Vol]15 mg/dLNormal7-25[facility] Medical CenterComment on above:Performed By: #### HGBHCT #### [address] [address]Kaihiuwijq Progress Noteon 12-33-9825Bezwzyrpxl Progress Note Subjective 74F with history of [...] diastolic function, mild LAE, mild MR, mild [place] ([facility]) Objective Vitals & Measurements T: 36.5 ?C [...] prophylaxis - Follow up with 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 Hypertension - [...] signed by Roberto Riojas DO 11/26/24 06:44 EDTNormalUniversity Hospitals Parma Medical Center Hgb & Hcton 68-66-9963Szybwdpruz (Bld) [Volume fraction]30.6 %Low36.0-46.0 [facility] Medical CenterComment on above:Performed By: #### HGBHCT #### [address] [address]Btzmdvmien (Bld) [Mass/Vol]10.2 g/dLLow12.0-16.0[facility] Medical CenterComment on above:Performed By: #### HGBHCT #### [address] [address]Gltatkjgy Clinical Summaryon 92-01-4920Jfzpyuuul Clinical Summary[address] [address] [phone] [address] [phone] Clinical Summary Person Information Name: Kami Fink Age: 74 Years : 1950 Sex: Female PCP: Amber MUJICA, Katelynn Salinas Marital Status: Phone: PCP: Race: White Ethnicity: Not or Language: Nepalese Visit Id: Visit Reason: Surgery Speciality: Acuity: Enc Type: Inpatient Med Service: Orthopedics Arrival: 11/21/2024 13:18:45 Discharge: Dispo Type: Address: [address] [place] [id number] Preferred Communication Mode: Verbal Preferred Language: Nepalese Discharge Diagnosis: Atrial fibrillation, persistent; Current use [...] Abnormalities: Scars Lines/Devices/BM Information: Urinary Catheter Type: Indwelling/Continuous Urinary Catheter Size: Urinary Catheter Activity Date: Discontinued Pre-insertion Indwelling Catheter Education: Ostomy Type: GI Tube Type: GI Tube Size: GI Tube Activity Date: Date of Last Bowel Movement: 11/25/2024 Functional Status: Sensory Deficits: None, Uncorrected visual impairment Valuables/Belongings: Glasses, Clothes, Electronics History of Falls Within [...] LUMBAR RADIO FREQUENCY ABLATI (more content not included)...[facility] HospitalOrthopedic Progress Noteon 70-72-1607Brdexvwfve Progress NoteSubjective Patient resting comfortably in bed, pain well [...] elevate lower extremity DVT prophylaxis TIN Ochoas, deondres A.m. hemoglobin 10.2. Hemodynamically stable. Continue to monitor. P.o. pain control PT/OT Dressing to remain in place until follow-up in 2 weeks. May shower over dressing. Ortho stable for transfer back to [facility] once cleared by medicine Anticipate DC to ECF when arranged and medically stable Outpatient follow-up in 2 weeks Orders: oxyCODONE, 5 mg, Oral, Tab, q4hr, PRN moderate pain [4-6 on pain scale], First Dose: 11/21/24 18:04:00 EDT, Dispense From Location: [facility], 11/21/24 18:04:00 EDT oxyCODONE, 10 mg, Oral, Tab, q4hr, PRN severe pain [7-10 on pain scale], First Dose: 11/21/24 18:04:00 EDT, Dispense From Location: [facility], 11/21/24 18:04:00 EDT verapamil, 180 mg, Oral, Tab-ER, Daily, First Dose: 11/22/24 9:00:00 EDT, Dispense From Location: [facility], 11/21/24 18:06:00 EDT Electronically signed by Bella Yarbrough PA-C 11/26/24 07:17 EDT Patient care discussed with Bella Yarbrough PA-C. Agree with assessment and plan. Electronically signed by Luis Alberto Perez MD 11/27/24 13:55 EDTCommunity Memorial HospitalProgress Note-Nurseon 11-77-5927Gqwfuclh Note-NurseReport [facility]. All questions answered. Electronically signed by Dalila Adams 11/26/24 14:50 EDTCommunity Memorial Hospital.eGFRon 20-47-9807WYR/1.73 sq M.predicted MDRD (S/P/Bld) [Vol rate/Area]mL/min/{1.73_m2} Normal>=60[facility] CenterComment on above:Result Comment: [facility] have implemented the eGFR calculation approach that does not havea coefficient for race and that conforms to [...] maximum of SCr/? or 1 Age = yearsPerformed By: #### HGBHCT #### [address] [address]Krgqk Metabolic Profileon 50-58-7397VJA Crea Ratio15.6 ratio Zdodfl13.0-20.0[facility] CenterComment on above:Performed By: #### HGBHCT #### [address] [address]Hdzbwsjopn [Mass/Vol]0.96 mg/dLNormal0.44-1.03[facility] CenterComment on above:Performed By: #### HGBHCT #### [address] [address]Xpnj nitrogen [Mass/Vol]15 mg/dLNormal8-26[facility] CenterComment on above:Performed By: #### HGBHCT #### [address] [address]Uewfc gap [Moles/Vol]5 mmol/LNormal4-12[facility] CenterComment on above:Performed By: #### HGBHCT #### [address] [address]Zempovx [Mass/Vol]8.8 mg/dLNormal8.6-10.3BUniversity Hospitals Elyria Medical CenterComment on above:Performed By: #### HGBHCT #### [address] [address]Ihllzomg [Moles/Vol]105 mmol/WTvewoz87-067WexghaqklUniversity Hospitals Parma Medical CenterComment on above:Performed By: #### HGBHCT #### [address] [address]SZ8 [Moles/Vol]26 mmol/MQfejxl66-73WndcftwmpUniversity Hospitals Parma Medical CenterComment on above:Performed By: #### HGBHCT #### [address] [address]Kuhgsvj [Mass/Vol]109 mg/bEKbcw72-53DzigvhiytUniversity Hospitals Parma Medical CenterComment on above:Performed By: #### HGBHCT #### [address] [address]Pnieorvpg [Moles/Vol]4.1 mmol/LNormal3.4-4.8BUniversity Hospitals Elyria Medical CenterComment on above:Performed By: #### HGBHCT #### [address] [address]Butebn [Moles/Vol]136 mmol/FYqyjeo480-982RdxkxhqecUniversity Hospitals Parma Medical CenterComment on above:Performed By: #### HGBHCT #### [address] [address]Zpt & Hcton 17-73-1933Mqyxbbnwwa (Bld) [Volume fraction]32.8 % Low36.0-46.0[facility] CenterComment on above:Performed By: #### HGBHCT #### [address] [address]Ftphwtkmhf (Bld) [Mass/Vol]10.9 g/dLLow12.0-16.0[facility] CenterComment on above:Performed By: #### HGBHCT #### [address] [address]Hrbdayqvox Progress Noteon 49-72-7396Ummoktpscf Progress Note Subjective Patient resting comfortably in bed. Pain well-controlled. Was able to ambulate in room and hallwayswith therapy. Denies chest pain, shortness of breath, [...] DVT prophylaxis TIN Ochoas, teds A.m. hemoglobin 10.9. Hemodynamically stable. Continue to monitor. P.o. pain control PT/OT Dressing to remain in place until follow-up in 2 weeks. May shower over dressing. Nurse noticed heart rate fluctuations and got EKG which showed new onset afib in RVR, patient beingtransferred to ccu Anticipate DC to ECF when [...] by Luis Alberto Perez MD 11/25/24 20:16 [facility]urseon 73-88-1356Eyiojtvl Note-NurseThis nurse entered the room at 0610 patient resting heart rate 127, blood pressure 164/70, this nurse auscultated heart irregular rate and rhythm. This nurse messaged hospitalist, ordered EKG. EKG came back with Afib with RVR. Transfer to ICU ordered. This nurse gave report to BATTALION FIRE CHIEFMEGAN Maradiaga. Electronically signed by Dakota Reagan 11/25/24 09:20 [facility].eGFRon 87-66-4053NNO/1.73 sq M.predicted MDRD (S/P/Bld) [Vol rate/Area]mL/min/{1.73_m2} Normal>=60[facility] CenterComment on above:Result Comment: [facility] have implemented the eGFR calculation approach that does not havea coefficient for race and that conforms to [...] maximum of SCr/? or 1 Age = yearsPerformed By: #### EGFR ####[address] [address]Zfmvf Metabolic Profileon 69-95-7003Uoosf gap [Moles/Vol] 8 mmol/LNormal4-12[facility] CenterComment on above:Performed By: #### CD:[id number] ####[address] [address]TRZ Crea Ratio19.5 eqxeeSdpqrp71.0-20.0[facility] Comment on above:Performed By: #### CD:[id number] ####[address] [address]Jmjavoc [Mass/Vol]8.6 mg/dLNormal 8.6-10.3BUniversity Hospitals Elyria Medical CenterComment on above:Performed By: #### CD:[id number] ####[address] [address]Rgbqbfkm [Moles/Vol]102 mmol/IEreovy13-962AvgojmhxaUniversity Hospitals Parma Medical Center Comment on above:Performed By: #### CD:[id number] ####[address] [address]VJ7 [Moles/Vol]25 mmol/LNormal 22-32[facility] CenterComment on above:Performed By: #### CD:[id number] ####[address] [address]Fhibfjysra [Mass/Vol]0.87 mg/dLNormal0.44-1.03[facility] CenterComment on above:Performed By: #### CD:[id number] ####[address] [address]Aiyilky [Mass/Vol]101 mg/dLHigh 70-99[facility] CenterComment on above:Performed By: #### CD:[id number] ####[address] [address]Hvllcmdkb [Moles/Vol]4.2 mmol/LNormal3.4-4.8BUniversity Hospitals Elyria Medical Center Comment on above:Performed By: #### CD:[id number] ####[address] [address]Ebtzgq [Moles/Vol]135 mmol/L Iwkoqq175-035TtizzzrtaUniversity Hospitals Parma Medical CenterComment on above:Performed By: #### CD:[id number] ####[address] [address]Rpna nitrogen [Mass/Vol]17 mg/dLNormal8-26[facility] Comment on above:Performed By: #### CD:[id number] ####[address] [address]Duv & Hcton 12-03-8279Ncystxfwob (Bld) [Volume fraction]31.9 %Low36.0-46.0[facility] CenterComment on above:Performed By: #### HGBHCT ####[address] [address]Kvjiioysqa (Bld) [Mass/Vol]10.7 g/dLLow12.0-16.0[facility] CenterComment on above:Performed By: #### HGBHCT ####[address] [address]Guirjhnsbz Progress Noteon 88-84-6755Smlytctryp Progress NoteSubjective Patient resting comfortably in bed. Pain well-controlled [...] an acute complication. Signed By: Pippa MUJICA, Nikhil Stephenson Physical Exam General exam: Patient is [...] DVT prophylaxis Gabriela, SCDs, teds A.m. hemoglobin 11.5. Hemodynamically stable. Continue [...] by Luis Alberto Perez MD 11/24/24 07:29 EDTNormalUniversity Hospitals Parma Medical Center.eGFRon 92-78-3839FJK/1.73 sq M.predicted MDRD (S/P/Bld) [Vol rate/Area]mL/min/{1.73_m2} Normal>=60[facility] CenterComment on above:Result Comment: [facility] have implemented the eGFR calculation approach that does not havea coefficient for race and that conforms to [...] maximum of SCr/? or 1 Age = yearsPerformed By: #### HGBHCT #### [facility] [address] [place], [place] [address]Gbpgk Metabolic Profileon 87-27-8650Rmfgh gap [Moles/Vol]5 mmol/LNormal4-12[facility] CenterComment on above:Order Comment: missed 2 times 11/23/2024 05:40:48 EDT ssPerformed By: #### CD:[id number] ####[address] [address]KFI Crea Ratio24.1 sjcosYvid19.0-20.0[facility] CenterComment on above:Order Comment: missed 2 times 11/23/2024 05:40:48 EDT ssPerformed By: #### CD:[id number] ####[address] [address]Bpfayhy [Mass/Vol]8.7 mg/dLNormal8.6-10.3BUniversity Hospitals Elyria Medical Center Comment on above:Order Comment: missed 2 times 11/23/2024 05:40:48 EDT ss Performed By: #### CD:[id number] ####[address] [address]Cwxcpumn [Moles/Vol]105 mmol/BYsbgsv28-430LbicyrovrUniversity Hospitals Parma Medical CenterComment on above:Order Comment: missed 2 times 11/23/2024 05:40:48 EDT ssPerformed By: #### CD:[id number] ####[facility] [place], [place] [address]BJ5 [Moles/Vol]25 mmol/LNgjuef64-01SfwoxqtswUniversity Hospitals Parma Medical CenterComment on above:Order Comment: missed 2 times 11/23/2024 05:40:48 EDT ssPerformed By: #### CD:[id number] ####[address] [address]Csthfaqujm [Mass/Vol]0.83 mg/dLNormal 0.44-1.03[facility] CenterComment on above:Order Comment: missed 2 times 11/23/2024 05:40:48 EDT ssPerformed By: #### CD:[id number] ####[address] [address]Rixhqcz [Mass/Vol]100 mg/rPWzpt99-04SkycktmwpUniversity Hospitals Parma Medical CenterComment on above:Order Comment: missed 2 times 11/23/2024 05:40:48 EDT ssPerformed By: #### CD:[id number] ####[address] [address]Pmmzcmsdu [Moles/Vol]4.2 mmol/LNormal3.4-4.8BUniversity Hospitals Elyria Medical CenterComment on above:Order Comment: missed 2 times 11/23/2024 05:40:48 EDT ssPerformed By: #### CD:[id number] ####[address] [address]Lbdojv [Moles/Vol]135 mmol/AIilxyo790-072SncbhgzccUniversity Hospitals Par[facility] Center Comment on above:Order Comment: missed 2 times 11/23/2024 05:40:48 EDT ss Performed By: #### CD:[id number] ####[address] [address]Thcg nitrogen [Mass/Vol]20 mg/dLNormal8-26[facility] CenterComment on above:Order Comment: missed 2 times 11/23/2024 05:40:48 EDT ssPerformed By: #### CD:[id number] ####[address] [address]Gmz & Hcton 17-76-1151Avmsfzijyo (Bld) [Volume fraction]35.4 %Low36.0-46.0[facility] CenterComment on above:Performed By: #### HGBHCT ####[address] [address]Ifipayhpub (Bld) [Mass/Vol]11.5 g/dLLow12.0-16.0[facility] CenterComment on above:Performed By: #### HGBHCT ####[address] [address]Dueqxgrmku Progress Noteon 07-51-7480Bmshpddrvf Progress NoteSubjective Patient resting comfortably in bed. Pain well-controlled. [...] an acute complication. Signed By: Pippa MUJICA, Nikhil Stephenson Physical Exam General exam: Patient is [...] by Luis Alberto Perez MD 11/23/24 13:46 EDTNormalUniversity Hospitals Parma Medical Center.eGFRon 68-53-4607Btjihejon GFR55 mL/min/1.73m?Low>=60[facility] Comment on above:Result Comment: [facility] have implemented the eGFR calculation approach that does not havea coefficient for race and that conforms to [...] maximum of SCr/? or 1 Age = yearsPerformed By: #### HGBHCT #### [address] [address]Iyrpz Metabolic Profileon 99-94-8000Hchbc gap [Moles/Vol]7 mmol/LNormal4-12[facility] CenterComment on above:Performed By: #### HGBHCT #### [address] [address]UPZ Crea Ratio20.0 luzleHwprhd59.0-20.0[facility] CenterComment on above:Performed By: #### HGBHCT #### [address] [address]Sqhwvms [Mass/Vol]8.8 mg/dLNormal8.6-10.3BUniversity Hospitals Elyria Medical CenterComment on above:Performed By: #### HGBHCT #### [address] [address]Teblfmjz [Moles/Vol]106 mmol/XSuiefl98-076GpsmolsusUniversity Hospitals Parma Medical CenterComment on above:Performed By: #### HGBHCT #### [address] [address]YH5 [Moles/Vol]24 mmol/HNnkowm82-84WhtphthxiUniversity Hospitals Parma Medical CenterComment on above:Performed By: #### HGBHCT #### [address] [address]Htydlchtue [Mass/Vol]1.05 mg/dLHigh0.44-1.03[facility] CenterComment on above:Performed By: #### HGBHCT #### [address] [address]Ahypsrn [Mass/Vol]160 mg/fTYpbv09-47DcrmgxspnUniversity Hospitals Parma Medical CenterComment on above:Performed By: #### HGBHCT #### [address] [address]Udsplfpqr [Moles/Vol]4.3 mmol/LNormal3.4-4.8BUniversity Hospitals Elyria Medical CenterComment on above:Performed By: #### HGBHCT #### [address] [address]Tkyzzt [Moles/Vol]137 mmol/WJbkavu131-847IcibwpgvbUniversity Hospitals Parma Medical CenterComment on above:Performed By: #### HGBHCT #### [address] [address]Wgde nitrogen [Mass/Vol]21 mg/dLNormal8-26[facility] CenterComment on above:Performed By: #### HGBHCT #### [address] [address]Ery & Hcton 05-68-6740Uzzjolqjeq (Bld) [Volume fraction]35.5 % Low36.0-46.0[facility] CenterComment on above:Performed By: #### HGBHCT #### [address] [address]Tdurxadcwp (Bld) [Mass/Vol]12.1 g/pPRaotdv66.0-16.0[facility] CenterComment on above:Performed By: #### HGBHCT #### [address] [address]Ngnzawndfj Progress Noteon 34-24-0799Msefqjtslj Progress Note Subjective Patient resting comfortably in bed. Pain well-controlled. Denies chest pain or shortness of breath.Denies fevers or chills. Boogie catheter was placed due to urinary urgency and difficulty getting tothe bathroom. Denies numbness or tingling in her [...] an acute complication. Signed By: Pippa MUJICA, Nikhil Stephenson Physical Exam General exam: Patient is [...] by Luis Alberto Perez MD 11/22/24 16:05 TCommunity [facility] Consultation Note - Genericon 42-73-0556Lomlcedpzqcs Note - GenericChief Complaint Left knee pain Assessment/Plan Brief Hospital [...] mg, Oral, q6hr, PRN (more content not included)...Normal [facility] CenterXR Knee 1 or 2 Views Lefton 62-89-2212UG Knee 1 or 2 Views LeftEXAM: XR Knee 1 or 2 Views Left HISTORY: s/p left TKA COMPARISON: April 21, 2024. TECHNIQUE: AP and crosstable lateral views of the left knee were obtained. FINDINGS: There are postoperative changes from an arthroplasty procedure with normal alignment. Associated subcutaneous emphysema. IMPRESSION: Status post left total knee arthroplasty without evidence of an acute complication. Final Dictated by: Nikhil Das MD Dictated DT/TM: 11/21/2024 7:29 pm Signed by: Nikhil Das MD Signed (Electronic Signature): 11/21/2024 7:32 pm Transcribed DT/TM: 11/21/2024 7:31 (If Report Is Signed, Electronically Signed in Other Vendor System)Normal [facility]36on 99-97-182401Mflsjpnum echo result from 11/18/2024: MD Eusebia Coyle [...] notified she's cleared for surgery from cardiac standpoint.NormalAvita Health System Ontario HospitalCardiac echo study ProcedureOrdered By: Vero Delgado on 83-52-1105Vmxiin Sinus Valsalva3.1 cmBon [employer] Phone: Aortic Sinus Valsalva Index1.59 cm/m2Bon [employer] Phone: AV Cusp Mmode2 cmBon [employer] Phone: AV Mean Bqaukige0reVeOpc [employer] Phone: AV Mean Velocity0.7 m/sBon [employer] Phone: AV Peak Nzitqtrl0eaLzHqp [employer] Phone: AV Peak Velocity1 m/sBon [employer] Phone: AV Velocity Ratio0.6Bon [employer] Work Phone: AV VTI18.5 cmB[facility] [employer] Work Phone: Body surface area Derived from formula2.02 m2[facility] [employer] Work Phone: E/E' Lateral9.75Bon [employer] Work Phone: EF BP55 %55 - 100 %[employer] Work Phone: [phone] Zuokmsppd52 %[employer] Work Phone: Est. RA Pnarlljm9lnHbSfu [employer] Work Phone: Fractional Shortening 2D20 %28 - 44 %[employer] Work Phone: Interpretation and review of laboratory results AbnormalBon [employer] Work Phone: IVSd1.1 cmAbnormal0.6 - 0.9 cmBanner Md Anderson Cancer Center [employer] Work Phone: LA Area 2C24.4 cm2Bon [employer] Work Phone: LA Area 4C23.9 cm2Bon [employer] Work Phone: LA Major Axis6.2 cmM[employer] Work Phone: LA Minor Axis6.4 cmM[employer] Work Phone: [phone] Volume BP78 wAEgxzczpy62 - 52 mLBon [employer] Work Phone: LA Volume Index BP40 ml/l5Mxejyxlr31 - 34 ml/m2Bon [employer] Work Phone: [phone] Volume Index MOD A2C40 ml/g3Klyamnps16 - 34 ml/m2 [employer] Work Phone: [phone] Volume Index MOD A4C39 ml/e7Ufenkrtt52 - 34 ml/m2 [employer] Work Phone: LA Volume MOD A2C78 yDOdkxhqgo79 - 52 mLBon [employer] Work Phone: LA Volume MOD A4C77 bXDdylapwc32 - 52 mLM[employer] Work Phone: LV E' Lateral Pspghbwe54.1 cm/sBon [employer] Work Phone: LV EDV A2C56 mLM[employer] Work Phone: [phone] EDV A4C55 mLM[employer] Work Phone: LV EDV Index A2C29 mL/m2Bon [employer] Work Phone: LV EDV Index A4C28 mL/m2Bon [employer] Work Phone: LV Ejection Fraction A2C55 %[employer] Work Phone: LV Ejection Fraction A4C52 %Bon [employer] Work Phone: LV ESV A2C25 mLM[employer] Work Phone: LV ESV A4C27 mLM[employer] Work Phone: LV ESV Index A2C13 mL/m2Bon [employer] Work Phone: LV ESV Index A4C14 mL/m2Bon [employer] Work Phone: LV Mass 2D164 xRhquqmzn36 - 162 gBon [employer] Work Phone: LV Mass 2D Index84.1 g/m243 - 95 g/m2Bon [employer] Work Phone: LV RWT Ratio0.44Bon [employer] Work Phone: [phone] cm3.9 - 5.3 cmBon [employer] Work Phone: LVIDd Index2.31 cm/m2Bon [employer] Work Phone: CWGLi5.6 cmBon [employer] Phone: [phone] Index1.85 cm/m2Bon [employer] Phone: [phone] Mean Xrzgfoxe5nvGmMqw [employer] Phone: [phone] Peak Poyirsyr3cgKdEot [employer] Phone: LVOT Peak Velocity0.6 m/sBon [employer] Phone: LVOT VTI13.7 cmBanner Md Anderson Cancer Center [employer] Phone: [phone]:AV VTI Index0.74[facility] [employer] Phone: [phone] cmAbnormal0.6 - 0.9 cmBanner Md Anderson Cancer Center [employer] Phone: [phone] E Velocity1.18 m/sBArkmicro Phone: [phone] E Wave Deceleration Wfrt755 msBanner Md Anderson Cancer Center [employer] Phone: [phone] Max Velocity0.8 m/sBon [employer] Phone: [phone] Peak Wdxsaooj4efAkFvg [employer] Phone: [phone] Basal Dimension3 cmBanner Md Anderson Cancer Center [employer] Phone: [phone] cm1.7 [facility] [employer] Phone: [phone] [employer] Phone: [phone] echo study Procedureon 83-63-1719Jscg Ventricle: Normal left ventricular systolic function with [...] Details Image quality: adequate. No contrast was given.[facility] CV CPACSRadiology Study observation (narrative)[facility] HospitalOffice Visiton 67-18-6515Swkgmx- up [id number] Kami Fink 1950 F Date Provider Department Center 11/14/2024 37879-LEZZDPVICKEY MATA LANEY Doe Family History Problem Relation Age of Onset Heart attack Mother Heart failure Father Coronary artery disease Sister Family Status - Relation Status Age at Mother Father Sister Level of Service:[address] [place] OFFICE/OUTPATIENT NEW MODERATE MDM 45 MINUTES Reason for Visit and Comments: Atrial Fibrillation [80] New Patient [632] pre op clearance [Other] -NormalUnJoint Township District Memorial HospitalUrine Culture on 33-17-8745Mjhssbsn identified Cx Nom (U)ORDERING PHYSICIAN LUIS ALBERTO PEREZ Urine Culture Results No Growth 2 Days PERFORMED BY: [address] [address] PATHOLOGIST REELING MACHINE SETUP OPERATOR GREER MCKENZIE M.D.NormalThe [facility] Physician GroupComment on above: Performed By: #### CUU #### [address] [address] USANo Panel InformationOrdered By: Radiologist Radiology on 00-03-8091[facility] Work Phone: SEGMENTAL BLOOD PRESSUREon [phone] [place] [id number] Vein Report Signed Patient: KAMI FINK MR#: [id number] : 1950 Acct:[id number] Age/Sex: 73 / F ADM Date: 01/10/24 Loc: VC Attending Dr: Greer Su M.D. Ordering Physician: Greer Su M.D. Date of Service: 01/10/24 Procedure(s): VC SEGMENTAL PRESSURES Accession Number(s): [id number] cc: Katelynn Clark M.D.; Greer Su M.D. [address] [address] Patient Name: KAMI FINK MRN: TBH:[id number] date: 1950 Sex: F Assigned Patient Location: Current Patient Location: VC Accession/Order Number: [id number] Exam Date: 01/10/2024 08:04 Report Date: 01/10/2024 10:57 At the request of: GREER SU Procedure: VC SEGMENTAL PRESSURES EXAM: VC SEGMENTAL PRESSURES HISTORY: I73.9 , left leg ulcer COMPARISON: None. FINDINGS: Segmental pressures presented as follows (right, left) in mmHg. Brachial: 155, 163 Upper thigh: 187, 178 Lower thigh: 203, 167 Calf: 230, 170 DPA: 204, 161 LIFE SKILLS COACH: 207, 214 1st Toe: 106, 121 ELVIN: [...] Signed By: 01/10/24 1100 DD/ 1057 TD/TT: Project Drilling Engineer:DUGLASadiology, Radiologist, - 01/10/2024 [place] [address] Vein Report Signed Patient: KAMI FINK MR#: [id number] : 1950 Acct:[id number] Age/Sex: 73 / F ADM Date: 01/10/24 Loc: VC Attending Dr: Greer Su M.D. Ordering Physician: Greer Su M.D. Date of Service: 01/10/24 Procedure(s): VC SEGMENTAL PRESSURES Accession Number(s): [id number] cc: Katelynn Clark M.D.; Greer Su M.D. The [place] [address] Patient Name: KAMI FINK MRN: TBH:[id number] date: 1950 Sex: F Assigned Patient Location: Current Patient Location: Accession/Order Number: [id number] Exam Date: 01/10/2024 08:04 Report Date: 01/10/2024 10:57 At the request of: GREER SU Procedure: VC SEGMENTAL PRESSURES EXAM: VC SEGMENTAL PRESSURES HISTORY: I73.9 , left leg ulcer COMPARISON: None. FINDINGS: Segmental pressures presented as follows (right, left) in mmHg. Brachial: 155, 163 Upper thigh: 187, 178 Lower thigh: 203, 167 Calf: 230, 170 DPA: 204, 161 LIFE SKILLS COACH: 207, 214 1st Toe: 106, 121 ELVIN: [...] Signed By: 01/10/24 1100 DD/ 1057 TD/TT: Project Drilling Engineer: ANTONIO HealthcareRadiology Study observation (narrative)[facility] LouisVC EXT VENOUS REFLUX NAVJOT LMTDon 79-95-3181[place]vv[place], [place] [address] Vein Report Signed Patient: KAMI FINK MR#: [id number] : 1950 Acct:[id number] Age/Sex: 73 / F ADM Date: 01/10/24 Loc: VC Attending Dr: Greer Su M.D. Ordering Physician: Greer Su M.D. Date of Service: 01/10/24 Procedure(s): VC EXT Venous Reflux NAVJOT LMTD Accession Number(s): [id number] cc: Katelynn Clark M.D.; Greer Su M.D. Patient Name: KAMI FINK MR#: [id number] : 1950 Exam Date: 01/10/2024 Ordering Doctor: [...] chronic thrombus visualized Compressibility: Normal Flow: Normal Merchandise Flow Associate: Dist/med calf in area of wound 6.2mm with 1.4s reflux. Tech Note: Incompetent GSV and second mate. Patent varicose vein prox/med calf off of [...] measuring up to 5.3 mm Dictated by: Nikhil Anthony MD on 01/10/2024 at 15:05 Approved by: Nikhil Anthony MD on 01/10/2024 at 15:08 Dictated By: Nikhil Anthony M.D. Signed By: 01/10/24 1509 DD/ 1508 TD/TT: Project Drilling Engineer:PRUDENCIOHRadiology, Radiologist, - 01/10/[address] [address] Vein Report Signed Patient: KAMI FINK MR#: [id number] : 1950 Acct:[id number] Age/Sex: 73 / F ADM Date: 01/10/24 Loc: VC Attending Dr: Greer Su M.D. Ordering Physician: Greer Su M.D. Date of Service: 01/10/24 Procedure(s): VC EXT Venous Reflux NAVJOT LMTD Accession Number(s): [id number] cc: Katelynn Clark M.D.; Greer Su M.D. Patient Name: KAMI FINK MR#: [id number] : 1950 Exam Date: 01/10/2024 Ordering Doctor: [...] chronic thrombus visualized Compressibility: Normal Flow: Normal Merchandise Flow Associate: Dist/med calf in area of wound 6.2mm with 1.4s reflux. Tech Note: Incompetent GSV and second mate. Patent varicose vein prox/med calf off of [...] measuring up to 5.3 mm Dictated by: Nikhil Anthony MD on 01/10/2024 at 15:05 Approved by: Nikhil Anthony MD on 01/10/2024 at 15:08 Dictated By: Nikhil Anthony M.D. Signed By: 01/10/24 1509 DD/ 1508 TD/TT: Project Drilling Engineer: ANTONIO HealthcareRadiology Study observation (narrative)[facility]. LouisXR knee RT 2Von 40-70-9503FM knee RT 2[facility] Other XR knee RT 2VFRUCLA Medical Center, [place] [facility] Other XR knee RT 6Q7580 Alejandro [facility] [employer] Other XR knee RT 2VSandVALENTE lopez [address]Vyotv [employer] Other XR knee RT 2VXRLarkin [facility] Other XR knee RT [place]ignedH[place] [facility] Other XR knee RT 2VPatient: Kami Fink MR#: [id number] [place] [facility] Other XR knee RT 6X28Nbzpr [employer] Other XR knee RT 2VDOB: 1950 Acct:[id number] [employer] Other XR knee RT 2VAge/Sex: 72 / F ADM Date: 11/02/22[place] [facility] Other XR knee RT 2VLoc: SOXD Room: Type: [facility] [employer] Other XR knee RT 2VAttending Dr: Jose Najera II, MD [place] [employer] Other XR knee RT 2VCopies to: Jose Najera MDHuntington Station [facility] Other XR knee RT 2VOrdering Provider: Jose Najera MD [place] [facility] Other XR knee RT 2VDate of Service: 11/02/22[place] [facility] Other XR knee RT 2VAccession #: ([id number] XR/XR knee RT 2V: History of total right knee replacementHuntington Station [facility] Other XR knee RT 2VRIGHT KNEE - 2 viewsH[place] [facility] Other XR knee RT 2VCLINICAL HISTORY: Follow-up right TKA [place] [facility] Other XR knee RT 2VCOMPARISON: Right knee 01/18/2022[place] [facility] Other XR knee RT 2VFINDINGS:[facility] Other XR knee RT 2VNo evidence of hardware complication or acute bony process.[facility] Other XR knee RT 2VORDER #: [id number] XR/XR knee RT 2VNoperry county memorial hospital [employer] Other XR knee RT 2VIMPRESSION:[facility] Other XR knee RT 2VNO EVIDENCE OF HARDWARE COMPLICATION. [facility] Other XR knee RT 2VImpression dictated by: Audie Mondragon Jr., DEdgardOEdgard11/02/2022 3:18 [facility] [employer] Other XR knee RT 2VDictation Location: [address] [employer] Other XR knee RT 2VTranscribed By: PWS 11/02/[address] [place] [address] [employer] Other XR knee RT 2VDictated By: Audie Mondragon Jr, DO 11/02/22 [facility]Goal[facility] [employer] Other XR knee RT 2VSigned By:[facility] Other XR knee RT 2V11/02/[address] [place] [address] [employer] Other Vital Signs Date TimeVital SignValuePerforming HejomitsfErsrsyqh26-10-0979 13:35-0400Body mhkesw916.29 cmKatelynn Clark MD Work Phone: [facility]08-25-2025 13:35-0400 Body mass index (BMI) [Ratio]34.5 kg/x5GkognlKatelynn Clark MD Work Phone: [facility]08-25-2025 13:35-0400 Body brupgp71.81 kgKatelynn Clark MD Work Phone: 1(168)[address]08-25-2025 13:35-0400 Diastolic blood aindmvkb66 mm[Hg]Katelynn Clark MD Work Phone: 1(438)[address]08-25-2025 13:35-0400 Heart rate78 /Ninfa Clark MD Work Phone: 1(021)[address] [place], [place] 1910908-25-2025 13:35-0400 Respiratory rate14 /Ninfa Clark MD Work Phone: 1(462)[address]08-25-2025 13:35-0400 SaO2% (BldA) [Mass fraction]97 %Katelynn Clark MD Work Phone: 1(054)[address] [place], [place] 1910908-25-2025 13:35-0400 Systolic blood kxonlcts502 mm[Hg]Katelynn Clark MD Work Phone: 1(758)[address] [place], [place] 1910906-17-2025 13:49-0400 Body .29 cmKatelynn Clark MD Work Phone: 1(085)[address] [place], [place] 1910906-17-2025 13:49-0400 Body mass index (BMI) [Ratio]34.9 kg/w8BmehnlKatelynn Clark MD Work Phone: 1(006)[address] [place], [place] 1910906-17-2025 13:49-0400 Body itspgz60.71 kgKatelynn Clark MD Work Phone: 1(319)[address] [place], [place] 1910906-17-2025 13:49-0400 Diastolic blood wojhuauw12 mm[Hg]Katelynn Clark MD Work Phone: 1(758)[address]06-17-2025 13:49-0400 Heart rate76 /Ninfa Clark MD Work Phone: 1(858)[address] [place], [place] 1910906-17-2025 13:49-0400 Systolic blood cvgepozc470 mm[Hg]Katelynn Clark MD Work Phone: 1(034)[address] [place], [place] [address]10905-06-2025 11:01-0400 Body ngasue610.5 cmSwanda Mata MD Work Phone: [facility]05-06-2025 11:01-0400Body mass index (BMI) [Ratio]34.18 kg/m3DlhhkVickey Mata MD Work Phone: [facility]05-06-2025 11:01-0400Body wordgz24.27 kgVickey Mata MD Work Phone: [facility]04-21-2025 13:02-0400Body voujll567.29 cmAk[facility]04-21-2025 13:02-0400Body mass index (BMI) [Ratio]34.7 kg/w1ZmffwanmtAkron Children'S Hospital04-21-2025 13:02-0400Body heydhi51.26 [facility]04-21-2025 13:02-0400Diastolic blood keicmakh87 mm[Hg][facility] 11-03-2024 13:02-0400Heart rate88 /[facility] 11-03-2024 13:02-0400Systolic blood nmagdyfz734 mm[Hg][facility]11-15-2024 10:57-0500Body yyivml358.29 cmAkron [facility]11-15-2024 10:57-0500Body mass index (BMI) [Ratio]35 kg/p9DjogvzqkmAkron Children'S Hospital11-15-2024 10:57-0500Body hykdfs55.17 kgAk[facility] Hospital11-15-2024 10:57-0500Diastolic blood mbcjstvu97 mm[Hg] [facility]11-15-2024 10:57-0500Heart rate66 /[facility]11-15-2024 10:57-0500Systolic blood dlrhwsma209 mm[Hg] [facility]08-15-2024 08:47-0400Body mkwxih857.6 cmGreer Su MD Work Phone: [facility]08-15-2024 08:47-0400Body mass index (BMI) [Ratio]35.19 kg/a6QllrrfbGreer Su MD Work Phone: 1(159)[facility]08-15-2024 08:47-0400Body .99 kgGreer Su MD Work Phone: 1(796)[facility]08-15-2024 08:47-0400Diastolic blood mm[Hg]Greer Su MD Work Phone: 1(961)[facility]08-15-2024 08:47-0400Heart rate 94 /minGreer Su MD Work Phone: 1(191)[facility]08-15-2024 08:47-2510MsB9% (BldA) [Mass fraction]100 %Greer Su MD Work Phone: 1(381)[facility]08-15-2024 08:47-0400Systolic blood dxqawqqm525 mm[Hg]Greer Su MD Work Phone: 1(357)[facility]07-11-2024 08:52-0400Body bvzzeg220.6 cmGreer Su MD Work Phone: 1(162)[facility]07-11-2024 08:52-0400Body mass index (BMI) [Ratio]34.84 kg/d6DhbrhjnGreer Su MD Work Phone: 1)[facility]07-11-2024 08:52-0400Body zlawvo98.08 kgGreer Su MD Work Phone: 1(353)[facility]07-11-2024 08:52-0400Diastolic blood mm[Hg]Greer Su MD Work Phone: 1(577)[facility]07-11-2024 08:52-0400Heart rate 116 /minGreer Su MD Work Phone: 1(728)[facility]07-11-2024 08:52-9169UqX2% (BldA) [Mass fraction]99 %Greer Su MD Work Phone: 1(120)[facility]07-11-2024 08:52-0400Systolic blood isjuzdtd737 mm[Hg]Greer Su MD Work Phone: 1(419)[facility]06-20-2024 10:35-0400Diastolic blood yrzpapqp87 mm[Hg]Greer Su MD Work Phone: 1(176)[facility]06-20-2024 10:35-5669BtB5% (BldA) [Mass fraction]98 %Greer Su MD Work Phone: 1(512)[facility]06-20-2024 10:35-0400Systolic blood pyfxhzyq960 mm[Hg]Greer Su MD Work Phone: 1(287)[facility]06-20-2024 10:33-0400Body auogzx946.6 cmGreer Su MD Work Phone: 1(344)[facility]06-20-2024 10:33-0400Body mass index (BMI) [Ratio]34.84 kg/f4VmxbvytGreer Su MD Work Phone: 1(573)[facility]06-20-2024 10:33-0400Body olurdc52.08 kgGreer Su MD Work Phone: 1(408)[facility]06-20-2024 10:33-0400Heart rate 116 /minGreer Su MD Work Phone: 1(272)[facility]05-30-2024 14:51-0400Body syaqqk725.29 cm[facility]05-30-2024 14:51-0400Body mass index (BMI) [Ratio]35.4 kg/q8FjzwuksyvAkron Children'S Hospital05-30-2024 14:51-0400Body .07 kg[facility]04-01-2024 11:18-0400Body rfqyaw950.29 cmMD Katelynn Clark Work Phone: [facility]04-01-2024 11:18-0400 Body mass index (BMI) [Ratio]36.6 kg/m2MD Katelynn Clark Work Phone: [facility]04-01-2024 11:18-0400 Body fbzrue63.36 kgMD Katelynn Clark Work Phone: [facility]04-01-2024 11:18-0400 Diastolic blood hsunopsf37 mm[Hg]MD Katelynn Clark Work Phone: 1(734)[address]04-01-2024 11:18-0400 Heart rate77 /minMD Katelynn Clark Work Phone: 1(557)[address]04-01-2024 11:18-0400 Systolic blood vyqscymk930 mm[Hg]MD Katelynn Clark Work Phone: 1(088)[address]02-29-2024 11:54-0500 Body daugwt082.29 cmMD Katelynn Clark Work Phone: 1(286)[address]02-29-2024 11:54-0500 Body mass index (BMI) [Ratio]37.8 kg/m2MD Katelynn Clark Work Phone: 1(712)[address]02-29-2024 11:54-0500 Body pgbcbadwmps53.6 [degF]MD Katelynn Clark Work Phone: 1(934)[address]02-29-2024 11:54-0500 Body xixycr41.42 kgMD Katelynn Clark Work Phone: 1(017)[address]02-29-2024 11:54-0500 Diastolic blood jmdqbiuc69 mm[Hg]MD Katelynn Clark Work Phone: 1(882)[address]02-29-2024 11:54-0500 Heart rate89 /minMD Katelynn Clark Work Phone: 1(822)077-[address] [place], [place] 28[address]302-29-2024 11:54-0500 Respiratory rate16 /minMD Katelynn Clark Work Phone: 1(448)[address]02-29-2024 11:54-0500 SaO2% (BldA) [Mass fraction]99 %MD Katelynn Clark Work Phone: 1(153)953[facility]36[facility]02-29-2024 11:54-0500 Systolic blood ctugiyha423 mm[Hg]MD Katelynn Clark Work Phone: 1(583)[address]02-15-2024 10:41-0500 Body .29 cmAk[facility]02-15-2024 10:41-0500Body mass index (BMI) [Ratio]37.8 kg/m9YwhespfyfAkron Children'S Hospital02-15-2024 10:41-0500Body ucacil90.42 kgAk[facility] Hospital02-15-2024 10:41-0500Diastolic blood mm[Hg][facility] 08-30-2023 10:41-0500Heart rate87 /minAkron [facility]'S Hospital 08-30-2023 10:41-0500Systolic blood mjdbrkip958 mm[Hg][facility]02-08-2024 09:20-0500Body fqedpd312.29 cmMiniica Jin Other [employer] Other 02-08-2024 09:20-0500Body mass index (BMI) [Ratio] 37.48 kg/z2Lxykfyy Jin Other [facility] Other 02-08-2024 09:20-0500Body ziaybh92.52 kgGeolindybryan Jin Other [facility] Other 02-01-2024 10:00-0500Body xiazgg544.29 cmKatelynn Clark Other [facility]02-01-2024 10:00-0500 Body mass index (BMI) [Ratio]37.83 kg/h8RvcqyzKatelynn Clark Other [facility] Other 02-01-2024 10:00-0500Body .43 kgMichella Amber Other [facility] Other 02-01-2024 10:00-0500Body lnidia18.42 [facility]02-01-2024 10:00-0500Diastolic blood prutkcne54 mm[Hg] Katelynn Clark Other [facility]02-01-2024 10:00-0500 Systolic blood uvhkwgku352 mm[Hg]Katelynnrolando Clark Other [facility]11-14-2023 11:30-0500 Body .29 cmKatelynn Abmer Other [facility] Other 11-14-2023 11:30-0500Body mass index (BMI) [Ratio] 37.41 kg/i2Aaoptf Amber Other [facility] Other 11-14-2023 11:30-0500Body .34 kgKatelynn Amber Other [facility] Other 11-14-2023 11:30-0500Diastolic blood wzxgdboh06 mm[Hg] Katelynn Clark Other [facility] Other 11-14-2023 11:30-0500Respiratory rate16 /minKatelynn Amber Other [facility] Other 11-14-2023 11:30-0500Systolic blood jyvfnnsg975 mm[Hg] Katelynn Clark Other [facility] Other 08-31-2023 08:45-0400Body .29 cmRobert Reinaldo II Other [facility] Other 08-31-2023 08:45-0400Body mass index (BMI) [Ratio] 38.01 kg/f9Unyhmf Garrett II Other [employer] Other 08-31-2023 08:45-0400Body npkare20.88 kgRobert Reinaldo II Other [employer] Other 07-06-2023 11:15-0400Body .29 cmKatelynn Clark Other [facility] Other 07-06-2023 11:15-0400Body mass index (BMI) [Ratio] 38.01 kg/e9MhatxwKatelynn Clark Other [facility] Other 07-06-2023 11:15-0400Body xxdubt49.88 kgDahianaisaias Amber Other [facility] Other 07-06-2023 11:15-0400Diastolic blood otgeldov74 mm[Hg] Katelynn Clark Other [facility] Other 07-06-2023 11:15-0400Systolic blood zrtqujzm528 mm[Hg] Katelynn Clark Other [facility] Other 05-30-2023 13:45-0400Body yvscjj765.29 cmKatelynn Clark Other [facility] Other 05-30-2023 13:45-0400Body mass index (BMI) [Ratio] 37.48 kg/d0FqklqaKatelynn Clark Other [facility] Other 05-30-2023 13:45-0400Body xasmfr76.52 kgKatelynn Clark Other [facility] Other 05-30-2023 13:45-0400Diastolic blood bveikijw65 mm[Hg] Katelynn Clark Other [facility] Other 05-30-2023 13:45-0400Systolic blood geoctlof219 mm[Hg] Katelynn Clark Other [facility] Other 2023 15:45-0400Body stovwm738.64 cmRobert Garrett II Other [facility] Other 05-25-2022 11:45-0400Body .64 cmRobert Garrett II Other [facility] Other 05-25-2022 11:45-0400Body mass index (BMI) [Ratio]34.7 kg/k0Btucjs Garrett II Other [facility] Other 05-25-2022 11:45-0400Body zczutc14.52 kgRobert Garrett II Other [facility] Other 05-04-2022 11:45-0400Body looqhi418.64 cmRobert Garrett II Other [facility] Other 05-04-2022 11:45-0400Body mass index (BMI) [Ratio]34.7 kg/n4Banymy Garrett II Other [facility] Other 05-04-2022 11:45-0400Body jnfdvi08.52 kgRobert Reinaldo II Other [facility] Other 03-24-2022 16:00-0400Body jhhizv714.64 cmRobert Garrett II Other [facility] Other 03-24-2022 16:00-0400Body mass index (BMI) [Ratio]34.7 kg/l4Pyxjcl Reinaldo II Other [facility] Other 03-24-2022 16:00-0400Body xuypji64.52 kgRobert Garrett II Other [employer] Other 03-01-2022 16:15-0500Body sgssay366.64 cmThomas Felter Other [employer] Other 03-01-2022 16:15-0500Body mass index (BMI) [Ratio]34.7 kg/r4Jtcjyt Felter Other [employer] Other 03-01-2022 16:15-0500Body ufcagv50.52 kgThomas Felter Other [facility] Other Encounters Encounter DateEncounter TypeCare ProviderFacilityStart: 03-09-2025 End: 20-20-3524cvvvycalckUkbvud E Braun MD Work Phone: [facility] Work Phone: Start: 03-09-2025 End: 66-69-5800Rovpbpt encounter procedureKatelynn Clrak MD-[facility] Work Phone: Start: 02-19-2025 End: 56-28-2427ioyipufwxxTPRCHSalem Regional Medical Centertart: 12-30-2024 End: 34-51-2070Osyxscm encounter procedureKatelynn Clark MD-[facility] Work Phone: Start: 13-42-5639vgyubyksbhSQQW S [facility] Rehabilitationtart: 11-21-2024 End: 01-66-2042Ykwrhiiufa and management of inpatientTod Zacarias MD [facility]: 11-18-2024 End: 64-83-4271poekfcbdexIUPZXSouthwest General Health Centertart: 11-18-2024 Encounter [facility] Start: 11-18-2024 End: 63-99-7029Lzkwddawjema stateSwanda Mata MD Work Phone: [facility] Work Phone: Start: 11-18-2024 End: 88-83-0060Jzotkukmsz hospital visit by Aparna Mata MD Work Phone: [facility] Non-Invasive CardiologyComment on above:Pre-operative clearance; Leg edema; Paroxysmal atrial fibrillation (HCC)Start: 11-14-2024 End: 57-02-3566zwnbrdxgymKYZCASalem Regional Medical Centertart: 11-14-2024 End: 44-82-1685Gfzwnnwea for other preprocedural examinationSCleveland Clinic Avon Hospitaltart: 11-13-2024 End: 57-26-2748tffpoextjeIten S Smith MDFacility:[facility]ativetart: 11-06-2024 End: 99-73-4189gnzlgmtmxbSXQCleveland Clinic [facility] Work Phone: Start: 11-06-2024 End: 08-17-1378Fddzaaon [facility]-LAB Path Spec [facility] HospStart: 11-03-2024 End: 96-51-0771wotijdnrijNznyohczjKeenan Private Hospital Work Phone: Start: 11-03-2024 End: 86-53-8021Nbbtiao encounter procedureTransylvania Regional Hospital [facility] Work Phone: Start: 05-30-2024 End: 21-48-3747gokhjwmsniHbkabbqpyPeoples Hospital Work Phone: Start: 05-30-2024 End: 36-28-1313Jkyahsu encounter procedureTransylvania Regional Hospital Physician [facility] Work Phone: Start: 11-59-4929Wpf-patient / Non-visitFirvirginia hospital center Phys[facility] Work Phone: Start: 02-28-2024 End: 39-49-6401Vndnlc outpatient visit 10 minutesMohamed Chad Su MD Work Phone: [facility] Vascular SurgeryComment on above:Venous ulcer of left leg (CMS-HCC) (Primary Dx); Critical limb ischemia of left lower extremity with gangrene (CMS-HCC)Start: 01-24-2024 End: 69-58-7028Phuxha outpatient visit 25 minutesMohamed Chad Su MD Work Phone: [facility] Comment on above:Venous ulcer of left leg (CMS-HCC) (Primary Dx)Start: 01-10-2024 End: 01-31-9314Yjmmizdom Result EncounterMohamed Marysol Su MD Work Phone: [facility] External Department UnsolicitedStart: 01-10-2024 End: 55-77-7628Ukwlqwwyb Result EncounterMohamed Marysol Su MD Work Phone: [facility] External Department UnsolicitedStart: 01-03-2024 End: 12-41-9759Runikl outpatient new 45 minutesMohamed Chad Su MD Work Phone: [facility] Comment on above:Critical limb ischemia of left lower extremity with gangrene (CMS-HCC) (Primary Dx); Abnormal ankle brachial index (ELVIN); Venous ulcer of left leg (CMS-HCC)Start: 12-13-2023 End: 26-95-7385felquhiceyMpghffxcuPeoples Hospital Work Phone: Start: 12-13-2023 End: 45-30-4032Nunbxsk encounter procedureTransylvania Regional Hospital [facility] Work Phone: Start: 10-15-2023 End: 65-33-0726atovaexdcsXN Marcia E Braun Work Phone: [facility] Work Phone: Start: 10-15-2023 End: 72-82-9900Fkdozpj encounter procedureMD Katelynn Clark Work Phone: [facility] Work Phone: Start: 10-04-2023 End: 02-15-0652sxruqhfwrfBG Marcia E Braun Work Phone: [facility] Work Phone: Start: 10-04-2023 End: 35-60-6091Gkdqwtj encounter procedureMD Bakeria Amber Work Phone: [facility] Work Phone: Start: 09-13-2023 End: 88-13-0674Idlxqip encounter procedureMD Katelynn Clark Work Phone: [facility] VascularStart: 09-13-2023 End: 22-97-6221Oeqsguk encounter procedureMD Katelynn Clark Work Phone: [facility] Work Phone: Start: 08-30-2023 End: 80-41-5967uouqyysknwWeosmlrwyPeoples Hospital Work Phone: Start: 08-30-2023 End: 37-42-7167Gaiejwo encounter procedureTransylvania Regional Hospital [facility] Work Phone: Start: 08-27-2023 End: 55-22-9251cgulmpqvgoWgjhgns [employer] Other [facility] [employer] Other start: 88-39-8836Mgkfksire encounterNy Jin [facility] Referral CoordinatorStart: 08-23-2023 End: 13-40-4723mcmrzfaoleFmizbtx [employer] Other [employer] Other start: 90-79-4433Tgdhxt outpatient new 45 minutes Ny LouisSouthern [facility] NeurosurgeryStart: 08-16-2023 End: 29-35-2885wyjhzjkklxPlulbl Braun Other [facility] [employer] Other Start: 79-99-1114Yonqfg outpatient visit 15 minutes [facility] ClinicStart: 35-45-5354Wxnevgwwa encounterMarcigladys Michaels Medical ClinicStart: 08-16-2023 End: 35-13-9515Wscixnr encounter procedureCamille Physician Group-Start: 08-13-2023 End: 04-62-5551yrzvbyvqfgIwlqvu Reinaldo II Other [employer] Other Start: 42-09-8219Mdlzyybqs encounterRobert Garrett II [facility]icsStart: 07-03-2023 End: 08-12-9008lahzjfnrmcIaoocy Clark Other [employer] Other Start: 38-17-9115Atmvxnbuu encounterMarcia Tanvir [facility] ClinicStart: 70-47-0913Zjiswvp encounter procedureFirjermain Physician Group-Start: 06-18-2023 End: 27-76-7066xawhvudlszVQHZ D DOLCENot AvailableStart: 06-11-2023 End: 83-33-4054hscmumlatkJnlvsz Clark Other [employer] Other Start: 92-34-9105Jrsdxwyvb encounterMarcia Tanvir [facility] ClinicStart: 06-01-2023 End: 18-89-6946pjascsctbuONNO D DOLCENot AvailableStart: 05-29-2023 End: 68-67-1584iyipthzjcvQkbjbn Clark Other [employer] Other Start: 45-14-2816Kdgyyy outpatient visit 15 minutes [facility] ClinicStart: 49-83-6455Nvtuiacgu encounterMarcigladys Michaels [facility] ClinicStart: 05-14-2023 End: 01-36-0243iimuliollqZwcjjx Reinaldo II Other [employer] Other Start: 65-93-7067Ufeapyslw encounterRobert Garrett II [facility]icsStart: 04-02-2023 End: 17-34-3637lyunltfsarCyoipn Clark Other [employer] Other Start: 19-08-1475Fxjhmcmcz encounterMarcia BraunG [facility] ClinicStart: 03-15-2023 End: 10-73-7804kgulfxxxlnKssjwl Garrett II Other [employer] Other Start: 21-74-8202Puwlip outpatient visit 25 minutes Jose Najera IIFPG [facility] OrthopedicsStart: 02-26-2023 End: 73-66-0793umedcyxoghCnqcpg Clark Other [email or web address] Other Start: 52-90-6232Faviltenh encounterMarcia BraunG [facility] ClinicStart: 02-08-2023 End: 93-55-7737apkxkyfdchZapphb Garrett II Other [employer] Other Start: 34-05-5637Ubqddd outpatient visit 25 minutes Jose Najera IIFPG [facility]opedicsStart: 01-19-2023 End: 35-25-1073qqocbdiezqZkibbx Clark Other [email or web address] Other Start: 55-66-1368Qqedvbsmb encounterMarcia BraunFPG [facility] ClinicStart: 01-18-2023 End: 55-70-3674vzatwqrxtlSoonwv Clark Other [employer] Other Start: 95-44-3290Fwmoys outpatient visit 15 minutes [facility]nn ClarkG [facility] ClinicStart: 01-17-2023 End: 59-83-8798hspswriyykRdxuwa Garrett II Other [employer] Other Start: 28-21-9928Ujvsuemak encounterRobert Reinaldo II [facility]icsStart: 12-13-2022 End: 50-76-6842zjzsutbstgEdddtd Braun Other [employer] Other Start: 44-24-1949Lpsbhbbxp encounterRobert Reinaldo II [facility]icsStart: 12-12-2022 End: 33-96-6914kruhuldqbpCY KATELYNN CLARKFacility:O8Irmrg: 72-86-1674Fuomsh outpatient visit 15 minutesKatelynn ClarkFPG [facility] ClinicStart: 11-02-2022 End: 54-31-0608ahmpmbuhfzTbgwzw Garrett II Other [employer] Other Start: 92-54-4582Hvhkaz outpatient visit 25 minutes Jose Garrett IIFPG [facility]icsStart: 10-10-2022 End: 67-00-7850fpoiseugghIzdics Reinaldo II Other [email or web address] Other Start: 31-89-2570Vejcyivsa encounterRobert Reinaldo II [facility]icsStart: 06-23-2022 End: 22-61-6471nqafxqmobjFB Marcia E Braun Work Phone: [facility] Work Phone: Start: 06-23-2022 End: 34-97-5584Itsrjmy encounter procedureMD Katelynn Clark Work Phone: [facility] Start: 04-13-2022 End: 95-92-9231rxiysuobskXggdkf Garrett II Other [employer] Other Start: 38-30-6028Zqtfucjvz encounterRobert Reinaldo II [facility]icsStart: 03-06-2022 End: 46-56-4170khfxjclmoxSqjhnv Felter Other [employer] Other Start: 99-16-3382Oxprcw outpatient visit 15 minutes [facility] [place]Start: 01-18-2022(Post-Op) Post-Op Jose Garrett IIFPG [facility]icsStart: 01-18-2022 End: 27-39-9564byqzsoeaeiLalpqu Reinaldo II Other [employer] Other Start: 12-07-2021(Post-Op) Post-OpRobert Garrett II [facility]icsStart: 12-07-2021 End: 30-27-3140semaxcmjflPrbueg Garrett II Other [employer] Other Start: 51-06-1866Qvv-procedure evaluation checkRobert Garrett II Other [employer] Other Start: 11-16-2021 End: 92-62-7763aeviiakbquLsqfua Garrett II Other [employer] Other Start: 79-39-6212Nhyugj outpatient visit 15 minutes Jose De Andaisle IIFPG [facility]icsStart: 10-14-2021(Prolonged) Prolonged ServicesRobert Reinaldo IIFPG [place]icsStart: 10-14-2021 End: 89-67-0341gduywzflouAthmcc Reinaldo II Other [employer] Other Start: 10-06-2021 End: 54-64-8267aobkybfglcXvinep Reinaldo II Other [employer] Other Start: 73-61-4445Gbwslu outpatient visit 25 minutes Jose Najera IIFPG [facility]icsStart: 09-13-2021 End: 04-51-2603dczhzghodnMsyzxj Garrett II Other [employer] Other Start: 77-66-2264Fazhsn outpatient visit 25 minutes Wayne FelterFPG [facility] [place] CreekStart: 18-44-7378Mwnrtyuqb encounter Jose Najera IIFPG [facility]icsStart: 08-09-2021 End: 69-20-9917dcebzaavtaIzjzex Felter Other [employer] Other Start: 41-50-1338Ctqelkmfc encounterThomas FelterFPLurdes [facility] OrthopedicsStart: 07-28-2021 End: 01-49-0841vdhlyvoerrYxmaat Felter Other [employer] Other Start: 18-43-2307Lxhiso outpatient visit 15 minutes Wayne FelterFPG [facility] [place] CreekStart: 30-58-0110Prqjo health examinationRobert Garrett II Other [employer] Other Start: 30-89-2308Jxeysu outpatient visit 15 minutes Wayne FelterFPG [facility] [place] Procedures DateProcedureProcedure DetailPerforming ClinicianStart: 40-94-6544Vwcw [facility] r-t 2d w/wom-mode compl spec&colr Leno Mata MD Work Phone: Start: 53-19-4243UI EXT VENOUS REFLUX NAVJOT LMTDMohamed Marysol Su MD Work Phone: Start: 62-92-4098GHKRWALBZ BLOOD PRESSUREMohamed Marysol Su MD Work Phone: Start: 27-19-3642Exykg brachial pressure indexMD Katelynn Clark Work Phone: Start: 02-04-1680Sxsqwxlbzo examination of kneeMD Katelynn Clark Work Phone: Start: 61-30-8229Cxdcbfurr for malignant neoplasm of colonRobert Garrett II Other Start: 52-10-6104Rwhpwlz examination of patientRobert Reinaldo II Other Start: 80-13-2192Nbkrssrax mammographyRobert Garrett II Other Screening for malignant neoplasm of breastRobert Garrett II Other Plan of Treatment DateCare ActivityDetailAuthorStart: 94-53-7782Oumec BMI ScreeningAdult BMI ScreeningPomerene Hospital SystemStart: 31-44-6436Hykukfy ScreeningTobacco ScreeningNovant Health Clemmons Medical Centertart: 25-74-3070Dogmy BMI ScreeningAdult BMI ScreeningProKindred Healthcare SystemStart: 99-83-7879Zfruvfc ScreeningTobacco ScreeningPomerene Hospital SystemStart: 12-81-7016KTOSH-19 Vaccine ( season)COVID-19 Vaccine ()Bon [facility] InstituteReal Life Plus [facility] HospitalStart: 15-53-9651Jozohj Wellness Visit (Medicare)Annual Wellness Visit (Medicare)Bon [facility] Neurological InstitutePixel QiCarilion Clinic St. Albans HospitalStart: 70-40-5097Tdevh cultureOhioHealthtart: 96-77-7344Ojbqfrqr identified in Urine by CultureUrine Culture OhioHealthtart: 58-47-7028Znfezslxt vaccinationInfluenza VaccinePomerene Hospital SystemStart: 02-28-2024 End: 61-65-0110Rpyxipc encounter mbokxjllc99/15/2024 8:30 AM EDT Office Visit [facility] [place] [address] Greer Su MD [address], [address] [address] [facility] CareStart: 01-24-2024 End: 57-35-2197Tapoufh encounter amrgzwdfo72/11/2024 9:20 AM EDT Office Visit [facility] [address] [place] [address] Greer Su MD [address], [address] [address] [facility] CareStart: 01-03-2024 End: 98-53-5233OV.doppler Extremity arteries - bilateral for physiologic artery studyVas art doppler lwr bilat mult lev/PVR Vascular Ultrasound Routine Abnormal ankle brachial index (ELVIN) Critical limb ischemia of left lower extremity with gangrene (CMS-HCC) Venous ulcer of left leg (CMS-HCC) Expected: 01/03/2024, Expires: 01/02/2025P[facility] Hospital SystemComment on above:Expected: 01/03/2024, Expires: 01/02/2025Start: 01-03-2024 End: 30-90-8103AB.doppler Lower extremity vein - bilateralVas venous duplex insufficiency lwr bi Vascular Ultrasound Routine Abnormal ankle brachial index (ELVIN) Critical limb ischemia of left lower extremity with gangrene (CMS-HCC) Venous ulcer of left leg (CMS-HCC) Expected: 01/03/2024, Expires: 01/02/2025 [facility] Work Phone: Comment on above:Expected: 01/03/2024, Expires: 01/02/2025Start: 20-48-3513XUSNR-19 Vaccine ( season)COVID-19 Vaccine ( season)[facility] SystemStart: 59-33-4906Zkwqnju referral [facility] Work Phone: Start: 10-26-0765Cttypfonitdq 50+ years Vaccine (2 of 2 - PPSV23)Pneumococcal 50+ years Vaccine (2 of 2 - PPSV23)Bon [facility] CenterStart: 78-47-6121Coyk Risk ScreeningFall Risk ScreeningPomerene Hospital SystemStart: 87-69-1681Avrvqqwoc for osteoporosisDEXA (modify frequency per FRAX score)Bon [facility] CenterStart: 32-87-6738Jtrqodzgdkxvzn of varicella zoster vaccineZoster (Shingles) Vaccine (1 of 2)[facility] Medical Centertart: 54-36-7714Ctozfyhf vaccine (1 of 2)Shingles vaccine (1 of 2)[facility]: 51-76-5617LKiP,Tdap and Td Vaccines (1 - Tdap)DTaP,Tdap and Td Vaccines (1 - Tdap)[facility] Centertart: 99-00-4050PQtR/Tdap/Td vaccine (1 - Tdap)DTaP/Tdap/Td vaccine (1 - Tdap)[facility]: 76-13-8748Zdlbl BMI Follow Up PlanAdult BMI Follow Up PlanNovant Health Clemmons Medical Centertart: 91-24-4290Rmsxngzvt C screeningHepatitis C screenBon [facility], Incart: 97-20-5936Wjhlxffwws ScreenDepression ScreenLifePoint Health: 40-87-1402Lopkskihyd ScreeningDepression ScreeningNovant Health Clemmons Medical Centertart: 1948Medicare Annual Wellness VisitMedicare Annual Wellness VisitDayton Children's HospitalComprehensive metabolic 2000 panel - Serum or Plasma [facility] HospitalMG Breast - bilateral ScreeningAkron Children'S HospitalPatient referralProtestant Deaconess [facility] Work Phone: [facility] Immunizations Immunization DateImmunizationNotesCare CswgebckPtdvaiif81-17-2162eariwozfk virus vaccine, unspecified formulationAk[facility]'S Hospital11-14-2023 influenza, high dose seasonal, preservative-freeDahianacigladys Clark Other [facility] Other [id number]-64 mRNAMalorie (Pfizer)MD Katelynn Clark Work Phone: [facility]02-23-2021COVID-19 mRNAMalorie (Pfizer)MD Katelynn Clark Work Phone: [facility]02-02-2021COVID-19 mRNAMalorie (Pfizer)MD Katelynn Clark Work Phone: [facility]11-09-2020Kenalog -40 mgThomas Felter Other [employer] Other 09-789823-53-9110ozfewswqo virus vaccine, split virus (incl. purified surface antigen)Jose Najera Bueda Other [employer] Other 09-765696-48-0370ganovojtv virus vaccine, unspecified formulationAk[facility] Children'S Hospital01-27-2020Kenalog -40 mgThomas Felter Other [employer] Other 04-288040-56-4614Anvagto -40 mgThomas Felter Other [employer] Other 09860093-92-5997XpoqyhuWcznqj Felter Other [employer] Other 08-805971-05-3670Seubtjjxui InjectionThomas Felter Other [employer] Other 08-506671-81-1066VadoeelHgcafc Felter Other [employer] Other 08-602594-80-5094AmvrgaaEbqjpp Felter Other [employer] Other 08998641-14-6244SyhzsfsYytfjn Felter Other [employer] Other 05-078441-88-3794Fioziwb -40 mgThomas Felter Other [employer] Other 11-248615-55-6482lqfcqtynx virus vaccine, split virus (incl. purified surface antigen)Jose Najera KRISTY Other [employer] Other 11-838424-78-3949xfmkihcjf virus vaccine, unspecified formulationAk[facility]'S Hospital11-16-2016pneumococcal polysaccharide vaccine, 23 Hubert Najera II Other [facility] Payers DatePayer CategoryPayerPolicy [id number] [id number] 2024 [id number] 2014Private Health InsuranceAARP [id number] 2013Medicare [id number] [id number] 2..[id number] 2..1.719774.2988-06-1948 [id number] 2..1.436201.3.579.2.66754-62-3598Qukptth055317 2.0.1.302653.3.579.2.200624-28-1461Wwlteyt899728 2..1.092067.3.57[id number] 2..1.334162.3.57[id number] 2.0.1.195960.3.57[id number] 2.16.840.1.991262.3.57[id number] 2.16.840.1.718577.3.57[id number] 2.840.1.093879.3.579.2.754UnknownAnthem /[id number]-[id number]-[id number] 2.16840.1.666897.3.579.2.531 Social History DateTypeDetailFacilityUnknown if ever smokedH[place]ton [place] [employer] Other Start: 06-18-2023 End: 74-97-0343Ffl Assigned At [facility] [employer] Other Start: 10-26-2021 End: 60-98-9462Elfwaey smoking status NHISNever smoked tobacco (finding) [facility] CenterStart: 24-91-2295Mle Assigned At [facility] Southtart: 05-30-2024 End: 03-58-5695KlePtfxpu (finding)[facility] CenterStart: 12-25-2022 End: 16-74-6551Kjaycqd use and exposureSmokeless tobacco non-userPomerene Hospital SystemStart: 06-18-2023 End: 72-70-5126Izqazilcj beverage intakeCurrent drinker of alcohol (finding) [facility] SystemStart: 06-18-2023 End: 78-69-2001Frioowjot beverage intakeProKindred Healthcare SystemStart: 09-27-2022 Within the past 12 months we worried whether our food would run out before we got money to buy more.Never TrueProKindred Healthcare SystemStart: 50-82-1045Mjo assigned at birthNot on [facility] CenterTobaintegris canadian valley hospital [facility] smoking status WAIS Tobacco smoking consumption unknownCentra [facility] Medical Equipment Procedure CodeEquipment CodeEquipment Original TextEquipment IdentifierDates Arthroplasty, knee, total, minimally invasiveOrthopaedic cement, non-medicated ()[id number] FDAStart: 54-16-6583Jfmfpdbpuutc, knee, total, minimally invasiveUncoated knee femur prosthesis, metallic ()[id number] FDAStart: 20-19-2675Troatngtgssa, knee, total, minimally invasiveTibial insert()[id number] FDAStart: 30-55-7309Tunhchyrhkpc, knee, total, minimally invasivePolyethylene patella prosthesis()[id number] FDAStart: 10-24-2021 Arthroplasty, knee, total, minimally invasiveKnee stem ()[id number] FDAStart: 23-37-9156Zdpnlzzqrcat, knee, total, minimally invasiveUncoated knee tibia prosthesis, metallic ()[id number] FDAStart: 10-24-2021 Clinical Notes 05-12-2021 to 02-19-2025 Note Date & FyjtRntfXlrfezld58-67-8048 [facility] Reason for [...] drugs Family history her mother due to MO at age 69. Her father had congestive [...] monitor 11/18/2024 - 11/21/2024 Echo 11/19/2024 at [facility] in [place] Lower extremities Doppler study 01/10/2024 PVR waveforms: Right leg: Thigh: Moderate to severe peripheral arterial disease Above knee: Mild to moderate peripheral arterial disease Below knee: Mild to moderate peripheral arterial disease Right ankle: Moderate to severe peripheral arterial disease Left leg: Thigh: Moderate to severe peripheral arterial disease Above knee: Mild to moderate peripheral arterial disease Below knee: Mi (more content not included)...[facility] 12-30-2024 Evaluation note* Diagnosis Onset Date Resolution Status Admit Date Essential (primary) hypertension acuteJune 2024 1:47pmLeft conjunctivitisacuteJune 2024 1:47pm Paroxysmal atrial fibrillationacuteJune 2024 1:47pmStatus post left knee replacementacuteJune 2024 1:47pmClass 1 obesity with body mass index (BMI) of 34.0 to 34.9 in adultacuteAugust 2024 1:27pmEssential (primary) hypertensionacuteAugust 2024 1:27pmHyperlipidemia, unspecifiedacuteAugust 2024 1:27pmMedicare annual wellness visit, subsequentacuteAugust 2024 1:27pmParoxysmal atrial fibrillationacuteAugust 2024 1:27pmScreening mammogram for breast canceracuteAugust 2024 1:27pm [facility] Work Phone: 1(499) 877-985405-15-2025 NoteAdmission Information Patient is a 74-year-old female [...] dressing. Ortho stable for transfer back to [facility] once cleared by medicine Anticipate DC to ECF when arranged and medically stable Outpatient follow-up in 2 weeks Orders: Discharge Patient Patient Discharge Condition stable Discharge Disposition ECF Electronically signed by Bella Yarbrough PA-C 11/27/24 00:55 EDT Patient care discussed with Bella Yarbrough PA-C. Agree with assessment and plan. Electronically signed by Luis Alberto Perez MD 11/27/24 13:[facility] Chief Complaint Left knee pain Reason for Consultation: Medical pain management nurse practitioner Provider: Dr. Perez Date of Consult: 11/21/2024 [...] mg oral tablet, 40 (more content not included)...[facility]05-13-2025 NoteChief Complaint Left knee pain Reason for [...] ECG 11/05/24 - Saw Dr. Naz Barney, [facility] slabbing machine operator, in [place] > He noted she was completed asymptomatic > Ventricular rates were controlled due to preexisting treatment with metoprolol tartrate 100 mgBID and verapamil SR 180 mg daily - TTE completed preoperatively at [facility] on 11/18 --> normal LVEF with mild [...] diastolic function, mild LAE, mild MR, mild [place] ([facility]) Physical Exam Vitals & Measurements T: 37 [...] rehab - Follow up with 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 Hypertension - [...] 180 mg= 1 tabs, (more content not included)...[facility]05-13-2025 NoteChief Complaint Left knee pain Reason for Consultation: Medical pain management nurse practitioner Provider: Dr. Perez Date of Consult: 11/21/2024 [...] acetaminophen, 1000 mg, O (more content not included)...[facility]05-12-2025 NoteChief Complaint Left knee pain Reason for Consultation: Medical pain management nurse practitioner Provider: Dr. Perez Date of Consult: 11/21/2024 [...] 75 mg oral c (more content not included)...[facility]05-11-2025 NoteChief Complaint Left knee pain Reason for Consultation: Medical pain management nurse practitioner Provider: Dr. Perez Date of Consult: 11/21/2024 [...] tabs, Oral, Daily, AM (more content not included)...[facility]05-10-2025 NoteChief Complaint Left knee pain Reason for Consultation: Medical pain management nurse practitioner Provider: Dr. Perez Date of Consult: 11/21/2024 [...] mg/12 hours oral tab (more content not included)...[facility]05-09-2025 NoteIndication for Surgery Patient is a 74-year-old [...] MUJICA, Luis Alberto Vegas (Surgeon - Primary) Community Service Patrol Officer Bella Yarbrough PA-C (Senior [employer] Software Engineer) Anesthesia General Chance MUJICA, Salas De Jesus (Provider) Tressa SUBSTITUTE TEACHER-LVN, Moises Herrmann (Provider) Moy POLLACKN-LVN, Mayi Ferguson (Provider) Estimated Blood Loss 500.0 [...] confirming correct surgical site, patient, and procedure. Weatherby exsanguination was used and tourniquet was inflated [...] size 9. The fem (more content not included)...[facility]05-06-2025 History of Present illness Narrative* Korina Ham - 11/18/2024 10:30 AM EDT Explained policies and procedure of an echocardiogram/Doppler study. documented in this encounterBon [facility]05-02-2025 NoteB[facility] Note [...] drugs Family history her mother due to MO at age 69. Her father had congestive [...] peripheral arterial disease Be (more content not included)...[facility]04-21-2025 Evaluation note* Diagnosis Onset Date Resolution Status Admit Date Essential (primary) hypertension acuteApril 2024 1:01pmPrimary osteoarthritis of left kneeacuteApril 2024 1:01pmRight femoral vein DVTacuteApril 2024 1:01pm [facility] Work Phone: 1(982) 537-903708-15-2024 Evaluation + Plan note* Assessment & Plan Note - Greer Su MD - 02/28/2024 9:01 AM EDTAssociated Problem(s): Venous ulcer of left leg (CMS-HCC) Wound pretty much healed. Discussed with her risk factors modification and follow-up as needed. [facility]08-15-2024 Evaluation + Plan note* Assessment & Plan Note - Greer Su MD - 02/28/2024 9:01 AM EDTAssociated Problem(s): Critical limb ischemia of left lower extremity with gangrene (CMS-HCC) Wound pretty much healed. Discussed with her risk factors modification and follow-up as needed. [facility]08-15-2024 Miscellaneous Notes* Assessment & Plan Note - Greer Su MD - 02/28/2024 9:01 AM EDTAssociated Problem(s): Venous ulcer of left leg (CMS-HCC) Wound pretty much healed. Discussed with her risk factors modification and follow-up as needed. * Assessment & Plan Note - Greer Su MD - 02/28/2024 9:01 AM EDT Associated Problem(s): Critical limb ischemia of left lower extremity with gangrene ([facility]) Wound pretty much healed. Discussed with her risk factors modification and follow-up as needed. documented in this encounterDayton Children's Hospital08-15-2024 History of Present illness Narrative* Greer [...] reflux that is relatively mild with a second mate in the left lower extremity near her [...] Past Medical History: Diagnosis Date Clotting disorder ([facility]) Deep vein thrombosis ([facility]) History of arterial disease of [...] of left lower extremity with gangrene (CMS-HCC) rGeer Su MD, DEMI, RPVI, FSVS, FACS [facility] [...] you for your understanding. documented in this encounterProMedica Health Vqinpo54-86-0725 Evaluation + Plan note* Assessment & Plan Note - Greer Su MD - 01/24/2024 9:20 AM EDT Associated Problem(s): Venous ulcer of left leg (CMS-HCC) We will reevaluate in a month. If the ulcer healed or healing well we will hold off on any intervention otherwise we will do ultrasound-guided injection sclerotherapy and ablation of the GSV. [facility]07-11-2024 History of Present illness Narrative* Greer [...] GSV reflux that isrelatively mild with a second mate in the left lower extremity near her [...] Past Medical History: Diagnosis Date Clotting disorder ([facility]) Deep vein thrombosis ([facility]) History of arterial disease of lower [...] ulcer of left leg (CMS-HCC) - Primary Kami was seen today for critical limb ischemia. [...] you for your understanding. documented in this encounterDayton Children's Hospital07-11-2024 Miscellaneous Notes* Assessment & Plan Note - Greer Su MD - 01/24/2024 9:20 AM EDT Associated Problem(s): Venous ulcer of left leg (CMS-HCC) We will reevaluate in a month. If the ulcer healed or healing well we will hold off on any intervention otherwise we will do ultrasound-guided injection sclerotherapy and ablation of the GSV. documented in this encounterDayton Children's Hospital06-20-2024 Evaluation + Plan note* Assessment & Plan Note - Greer Su MD - 01/03/2024 10:48 AM EDT Associated Problem(s): Critical limb ischemia of left lower extremity with gangrene (CMS-HCC) PVR with toe pressure [facility]06-20-2024 Miscellaneous Notes* Assessment & Plan Note - Greer Su MD - 01/03/2024 10:48 AM EDTAssociated Problem(s): Critical limb ischemia of left lower extremity with gangrene (CMS-HCC) PVR with toe pressure * Assessment & Plan Note - Greer Su MD - 01/03/2024 10:47 AM EDT Associated Problem(s): Venous ulcer of left leg (CMS-HCC) Venous reflux ultrasound and compression therapy documented in this encounterDayton Children's Hospital06-20-2024 Evaluation + Plan note* Assessment & Plan Note - Greer Su MD - 01/03/2024 10:47 AM EDT Associated Problem(s): Venous ulcer of left leg (CMS-HCC) Venous reflux ultrasound and compression therapy [facility]06-20-2024 History of Present illness Narrative* Greer [...] Past Medical History: Diagnosis Date Clotting disorder [facility] Deep vein thrombosis ([facility]) History of arterial disease of lower [...] Problem List Venous ulcer of left leg ([facility]) Current Assessment & Plan Venous reflux ultrasound and compression therapy Relevant Orders Vas venous duplex insufficiency lwr bi Vas art doppler lwr bilat mult lev/PVR Critical limb ischemia of left lower extremity with gangrene (CMS-HCC) - Primary Current Assessment & Plan PVR [...] (ELVIN) - [facility] - [place], [place] - Vas venous duplex insufficiency lwr bi; Future - Vas art doppler lwr bilat mult lev/PVR; Future Venous ulcer of left leg (CMS-HCC) - Vas venous duplex insufficiency lwr bi; Future - Vas art doppler lwr bilat mult lev/PVR; Future Continue statin therapy and Eliquis for now. Greer Su MD, DEMI, RPVI, FSVS, FACS [facility] This note was created with the assistance of a speech recognition program. While intending to generate a timely document that accurately reflects the content of the visit, no guarantee can be provided that every grammatical or spelling mistake has been or will be identified or corrected. Thank you for your understanding. documented in this encounterUniversity Hospitals Parma Medical CenterJascha Hawthorn [id number] Evaluation note* Encounter Date Diagnosis Assessment Notes [...] pain when standing more than 5 minutes. Shehas a recent DVT in her right calf that is being treated with Eliquis. Her major concern today is the numbness in her left foot, reviewing her EMG showing severe polyneuropathy. There are no surgicalindications for this patient at this time. I do recommend the patient see vascular for further brad p, I will send a referral. Patient also could benefit from pain management for her back pain and sacroiliac, I will send referral to Dr. Mccallum. She should continue follow-up with her primary care. Iwill see her in 6 months for follow-up. Aug,eripheral vascular insufficiency (ICD-10 - I73.9) Aug,eripheral polyneuropathy (ICD-10 - G62.9) Aug,Lumbar stenosis without neurogenic claudication (ICD-10 - M48.061) Aug,Lower extremity edema (ICD-10 - R60.0) [facility] Other 02-01-2024 Evaluation note* Encounter Date Diagnosis Assessment Notes Treatment Notes Treatment Clinical Notes Aug, Leg edema, right (ICD-10 - R60.0 ) Check US today, discussed other possibilities but r/o DVT first. [facility] Other 12-19-2023 Evaluation note* Encounter Date Diagnosis Assessment Notes Treatment Notes Treatment Clinical Notes Jun, Lumbar pain (ICD-10 - M54.50) [facility] Other 11-27-2023 Evaluation note* Encounter Date Diagnosis Assessment Notes Treatment Notes Treatment Clinical Notes May, DDD (degenerative disc disease), lumbar (ICD-10 - M51.36) [facility] Other 11-14-2023 Evaluation note* Encounter Date Diagnosis Assessment Notes Treatment Notes Treatment Clinical Notes May, Peripheral polyneuropathy (ICD-1 0 - G62.9) Requests labs to r/o metabolic causes. May,Lumbar pain (ICD-10 - M54.50)Chronic lumbar pain. Agrees to start w xray. May,aronychia, toe, left (ICD-10 - L03.032)Pt requests antibiotic at end of visit. Keep foot clean and dry. [facility] Other 08-31-2023 Evaluation note* Encounter Date Diagnosis Assessment Notes Treatment Notes Treatment Clinical Notes Feb, History of total right knee repl acement (ICD-10 - Z96.651) Feb,rimary osteoarthritis of left knee (ICD-10 - M17.12) Feb,Other1. We had a long discussion with the patient today concerning their left knee osteoarthritis. The radiographs do show osteoarthritis of the knee. At this time the patient would like to avoid surgicalintervention. We did discuss the risk and benefits of surgical versus nonoperative management. The p atient would like to proceed with nonoperative management. We discussed that our options include injections, physical therapy, and the consistent use of anti- inflammatories. All 3 of these options, including their risks and benefits, were discussed at length with the patient. 2. Tylenol: Discussed taking Tylenol (acetaminophen). Recommended adjusting their dosing to 1000mg by mouth up to 3 times a day. 3. NSAIDs: Recommended continuing with her diclofenac and Voltaren gel 4. Physical therapy: Discussed formal physical therapy and home regimen. Patient preferred no PT atthis time. 5. Injections: Discussed injections as a [...] wedding planned the end of August 2023. [facility] Other 07-27-2023 Evaluation note* Encounter Date Diagnosis Assessment Notes Treatment Notes Treatment Clinical Notes Jan, History of total right knee repl acement (ICD-10 - Z96.651) Jan,rimary osteoarthritis of both knees (ICD-10 - M17.0) Jan,OtherWe did discuss treatment options for her left knee and her generalized pain. At this point time if she is not going to take any systemic anti-inflammatory medications then I would recommend more topical anti- inflammatories like Voltaren gel. I prescribed her this [...] it is not something that I prescribed. [facility] Other 07-06-2023 Evaluation note* Encounter Date Diagnosis Assessment Notes Treatment Notes Treatment Clinical Notes Jan, Easy bruisability (ICD-10 - R23. 3) Pt will get labs today. Discussed possible link w the frequent NSAIDs Jan,Essential (primary) hypertension (ICD-10 - I10)Due for labs. Possible elevated glucose - nonfasting, had steroid pills and injections due to foot issues. She is seeing podiatry for plantar fasciitis. [facility] Other 07-06-2023 Evaluation note* Encounter Date Diagnosis Assessment Notes Treatment Notes Treatment Clinical Notes Jan, Easy bruisability (ICD-10 - R23. 3) Pt will get labs today. Discussed possible link w the frequent NSAIDs Jan,Essential (primary) hypertension (ICD-10 - I10)Blood pressure remains well controlled at this time. Denies cardiac symptoms. Shows no signs or symptoms or poor control. Patient to continue with above medication and we will continue to monitor. Advised to pay attention to body and symptoms. Any developing patterns. Stay well hydrated. [facility] Other 05-31-2023 NotePROCEDURE: XR FOOT LT MIN [...] Electronically authenticated by: TIM TORREZ Date: 2022-12-13 08:39[facility]05-30-2023 Evaluation note* Encounter Date Diagnosis Assessment Notes Treatment Notes Treatment Clinical Notes November, Left foot pain (ICD-10 - M79.672 ) Discussed primary concern of stress fracture. Pt agrees to xray. Reviewed ortho notes. She is to followup there prn. [facility] Other 2023 Evaluation note* Encounter Date Diagnosis Assessment Notes Treatment Notes Treatment Clinical Notes Oct, History of total right knee repl acement (ICD-10 - Z96.651) Oct,rimary osteoarthritis of both knees (ICD-10 - M17.0) Oct,[facility]21 Happy with surgical result Follow [...] as needed basis for the left knee. [facility] Other 09-29-2022 Evaluation note* Encounter Date Diagnosis Assessment Notes Treatment Notes Treatment Clinical Notes Mar, Primary osteoarthritis of both k nees (ICD-10 - M17.0) [facility] Other 08-22-2022 Evaluation note* Encounter Date Diagnosis Assessment Notes Treatment Notes Treatment Clinical Notes Feb, Primary osteoarthritis of both k nees (ICD-10 - M17.0) We discussed treatment options for the patient's persistent left knee pain. She shows notable pain consistent with the knee joint. She has failed multiple previous conservative treatment options. Given location of pain and exam findings, patient is a candidate for a repeat left knee injection whichwe will proceed with today in office. Risks and benefits of procedure explained to patient; patientverbalizes understanding. Patient tolerated well. Feb,ight knee pain (ICD-10 - M25.561) Feb,Left knee pain (ICD-10 - M25.562) Feb,ther chronic pain (ICD-10 - G89.29) Feb,therAbove note written by Richar Kruger LPN, Dope And Fabric Worker. Edited and approved by Dr. Wayne Mccallum MD. [facility] Other 07-06-2022 Evaluation note* Encounter Date Diagnosis Assessment Notes Treatment Notes Treatment Clinical Notes Jan, Primary osteoarthritis of both k nees (ICD-10 - M17.0) Jan,ftercare following joint replacement surgery (ICD-10 - Z47.1) Jan,History of total right knee replacement (ICD-10 - Z96.651) Jan,[facility]2021 Doing well Discussed post-op dental prophylaxis. Shared decision made to continue prophylactic antibiotics indefinitely. Follow-up at 1 year post-op for repeat examination and 2 view x-rays of the right knee. Patient instructed to call with any questions or concerns. [facility] Other 05-25-2022 Evaluation note* Encounter Date Diagnosis Assessment Notes Treatment Notes Treatment Clinical Notes November, Primary osteoarthritis of both k nees (ICD-10 - M17.0) November,ftercare following joint replacement surgery (ICD-10 - Z47.1) November,History of total right knee replacement (ICD-10 - Z96.651) November,[facility] 10/24/2021 Doing well Patient may continue activities as tolerated. Continue PT as recommended. Continue taking [id number]-[id number] anti-inflammatories as needed for assistance with swelling and pain associated with the operative extremity. Follow-up in 6 weeks for repeat examination and long standing x-rays. [facility] Other 05-04-2022 Evaluation note* Encounter Date Diagnosis Assessment Notes Treatment Notes Treatment Clinical Notes November, Primary osteoarthritis of both k nees (ICD-10 - M17.0) November,ftercare following joint replacement surgery (ICD-10 - Z47.1) November,History of total right knee replacement (ICD-10 - Z96.651) November,therOverall patient is continue to progress quite well. [...] for 3 views of the right knee. [facility] Other 04-01-2022 Evaluation note* Encounter Date Diagnosis Assessment Notes Treatment Notes Treatment Clinical Notes Oct, Other Prolonged Services 1. H and P date: 10/06/2021 2. Diagnosis: Right knee primary osteoarthritis 3. Counseling: Counseling education was provided her history and physical 4. Coordination of care: The patient was discussed at today's total joints meeting with anesthesia,OR staff, and implant reps in an effort to coordinate the patient's care during the perioperative period. The anesthesiologist was involved in discussions regarding the patient's pain management suchas regional blocks, anesthesia plans the day of surgery such as general versus spinal, as well as afinal review of lab work to ensure the patient could proceed with surgery safely. The manager managing was vital for surgery timing and scheduling purposes. The implant rep was also available for necessarydiscussions regarding preoperative templates that were created on [...] tests including albumin levels, vitamin D levels, hemoglobin,hemoglobin A1c, cotinine serum level, and MRSA nasal [...] plans. Prolonged services time spent: 37 minutes [facility] Other 04-01-2022 History general Narrative - Reported* Type Description Date Medical History hypertension Surgical Historybilateral THASurgical Historyabdominal surgerySurgical HistoryRT TKR10/2021Hospitalization Historysee above [facility] Other 04-01-2022 History general Narrative - Reported* Type Description Date Medical History hypertension Surgical Historybilateral THASurgical Historyabdominal surgerySurgical HistoryRT TKRurgical HistoryCOLONOSCOPYHospitalization Historysee above [facility] Other 04-01-2022 History general Narrative - Reported* Type Description Date Medical History hypertension Medical HistoryFrozen shoulderMedical HistoryLumbar painSurgical History bilateral THASurgical Historyabdominal surgerySurgical HistoryRT TKR10/2021 Surgical HistoryCOLONOSCOPYHospitalization Historysee above [facility] Other 03-24-2022 Evaluation note* Encounter Date Diagnosis Assessment Notes Treatment Notes Treatment Clinical Notes Sep, Primary osteoarthritis of both k nees (ICD-10 - M17.0) Sep,ther 1. Right TKA Home Medications - DVT [...] rehab stay. Joints Meeting Checklist - Pharmacy: [facility] med to bed - Approach/Technique: ZULLY [...] activity modification, physical therapy, oral anti-inflammatories, and intra- articular steroid injections. We will moveforward with the definitive treatment option and schedule [...] elected to proceed with the above surgery. [facility] Other 03-01-2022 Evaluation note* Encounter Date Diagnosis Assessment Notes Treatment Notes Treatment Clinical Notes Sep, Primary osteoarthritis of both k nees (ICD-10 - M17.0) Patient complains of bilateral knee pain, right greater than left. Given her increasing pain symptoms as well failed previous conservative measures, she is encouraged to continue to follow up with Orthopedics in regard to her surgery. She continues to benefit from Tramadol 50 mg twice daily, refillprovided today. Risks and side effects of this medication was discussed in detail with the patient who voiced understanding. Oaars was processed and reviewed with no discrepancies. Overall, patient is in agreement with our treatment plan. Sep,ight knee pain (ICD-10 - M25.561) Sep,Left knee pain (ICD-10 - M25.562) Sep,2Other chronic pain (ICD-10 - G89.29) Sep,therAbove note written by Richar Kruger LPN, Dope And Fabric Worker. Edited and approved by Dr. Wayne Mccallum MD. [facility] Other 03-01-2022 Evaluation note* Encounter Date Diagnosis Assessment Notes Treatment Notes Treatment Clinical Notes Sep, Primary osteoarthritis of both k nees (ICD-10 - M17.0) [facility] Other 01-25-2022 Evaluation note* Encounter Date Diagnosis Assessment Notes Treatment Notes Treatment Clinical Notes Jul, Primary osteoarthritis of both k nees (ICD-10 - M17.0) [facility] Other 01-13-2022 Evaluation note* Encounter Date Diagnosis Assessment Notes Treatment Notes Treatment Clinical Notes Jul, Primary osteoarthritis of both k nees (ICD-10 - M17.0) Patient complains of bilateral [...] patient; patient verbalizes understanding. Patient tolerated well. Jul,ight knee pain (ICD-10 - M25.561) Jul,Left knee pain (ICD-10 - M25.562) Jul,ther chronic pain (ICD-10 - G89.29) Given her severity of pain and plan to wait at least some time for possible surgery, we will plan on trialing Tramadol 50mg up two times daily as needed. Risks and side effects of this medication wasdiscussed in detail with the patient who voiced understanding. Oaars was processed and reviewed with no discrepancies. Patient signed an opioid contract with us today and provided a saliva sample fortoxasure screening, will await confirmatory results. Jul,therAbove note written by Richar Kruger LPN, Dope And Fabric Worker. Edited and approved by Dr. Wayne Mccallum MD. [facility] Other 10-28-2021 Evaluation note* Encounter Date Diagnosis Assessment Notes Treatment Notes Treatment Clinical Notes Apr, Primary osteoarthritis of both k nees (ICD-10 - M17.0) Patient complains of right knee pain. Patient has failed several conservative treatment options. Based on previous positive results and returning pain symptoms, patient is a candidate for a repeat right knee cortisone injections which we will proceed with in the office today. Risks and benefits of procedure explained to patient; patient verbalizes understanding. Apr,ight knee pain (ICD-10 - M25.561) Apr,eft knee pain (ICD-10 - M25.562) Apr,Other chronic pain (ICD-10 - G89.29) Apr,OtherAbove note written by Nissa Murillo CMA, Dope And Fabric Worker. Edited and approved by Dr. Wayne Mccallum MD. [facility] [employer] Other Evaluation noteNo assessment information available [facility] Work Phone: Evaluation noteNo InformationNortCrozer-Chester Medical Center [employer] Other Evaluation note* Diagnosis Onset Date Resolution Status Right femoral vein DVT acute [facility] Work Phone: Evaluation note* Diagnosis Onset Date Resolution Status Essential (primary) hypertension acuteKnee arthropathyacuteRight femoral vein DVTacutePAD (peripheral artery disease)acutePrimary osteoarthritis of left kneeacute [facility] Work Phone: Evaluation note* Diagnosis Onset Date Resolution Status Essential (primary) hypertension acuteKnee arthropathyacuteRight femoral vein DVTacutePAD (peripheral artery disease)acutePrimary osteoarthritis of left kneeacutePAD (peripheral artery disease)acuteVenous ulcer of left legacute [facility] Work Phone: Evaluation note* Diagnosis Onset Date Resolution Status Primary osteoarthritis of left knee acutePAD (peripheral artery disease)acuteVenous ulcer of left legacutePrimary osteoarthritis of left kneeacute [facility] Work Phone: Evaluation note* Diagnosis Critical limb ischemia of left lower extremity with gangrene [facility] Primary Abnormal ankle brachial index (ELVIN) Venous ulcer of left leg ([facility]) documented in this encounter [facility]* Diagnosis Venous ulcer of left leg (CMS-HCC)- Primary [facility]* Diagnosis Venous ulcer of left leg (CMS-HCC)- Primary Critical limb ischemia of left lower extremity with gangrene (CMS-HCC) [facility]* Diagnosis Pre-operative clearance Preoperative examination, unspecified Leg edema Edema Paroxysmal atrial fibrillation (HCC) Atrial fibrillation documented in this encounter [facility] Narrative - Reported* Type Description Date Medical History hypertension Surgical Historybilateral THASurgical Historyabdominal surgery [facility] Other Hospital Discharge instructionsAmbulatory Orders* Referral to Wound Care Time Frame: 10/15/23, Location: None [facility] Work Phone: InstructionsNot on filedocumented in this encounter [facility] SystemInstructionsNot on filedocumented in this encounter [facility] SystemInstructionsNot on filedocumented in this encounter [facility] SystemReason for referral (narrative)No reason for referral information availableProtestant Deaconess [facility] Work Phone: Reason for visit Narrative* Imaging (Routine) - Pending ReviewSpecialtyDiagnoses / ProceduresReferred By ContactReferred To ContactCardiology Diagnoses Pre-operative clearance Leg edema Paroxysmal atrial fibrillation (HCC) Procedures Echo (TTE) complete (PRN contrast/bubble/strain/3D) WY ECHO TTHRC R-T 2D W/WOM-MODE COMPL SPEC&COLR D WY TTE W OR WO FOL WCON,DOPPLER Vickey Mata MD [address] [facility] [id number] [place] [address] Phone: tel: fax: Referral IDStatusReasonStart DateExpiration DateVisits RequestedVisits [id number] Review/ [facility] [employer] Family History Relationship Condition Age at Onset Recorded Date/T lucas father Heart problem Unknown Congestive heart failureUnknownNot SpecifiedMyocardial infarctionUnknownsister Non-Hodgkin's lymphomaUnknown Relationship Condition Age at Onset Recorded Date/T lucas father Heart problem Unknown Congestive heart failureUnknownNot SpecifiedMyocardial infarctionUnknownsister Non-Hodgkin's lymphomaUnknownfatherDeceasedUnknownHypertensionUnknownfamily memberDeceasedUnknownNot SpecifiedDeceasedUnknownnatural sonHeart diseaseUnknown Relationship Condition Age at Onset Recorded Date/T lucas father Heart problem Unknown Congestive heart failureUnknownmotherMyocardial infarctionUnknownsisterNon- Hodgkin's lymphomaUnknownfatherDeceasedUnknownHypertensionUnknownfamily member DeceasedUnknownmotherDeceasedUnknownsonHeart diseaseUnknown Relationship Condition Age at Onset Recorded Date/T lucas father Heart problem Unknown Congestive heart failureUnknownmotherMyocardial infarctionUnknownsisterNon- Hodgkin's lymphomaUnknownfatherDeceasedUnknownHypertensionUnknownfamily member DeceasedUnknownmotherDeceasedUnknownsonHeart diseaseUnknownfatherCongestive heart failureUnknown Advance Directives Advance Directive Response Recorded Date/ Time Advance Directives No November 29 8 12:37pm Advance Directive Response Recorded Date/ Time Advance Directives No November 29 8 1:37pm Advance Directive Response Recorded Date/ Time Advance Directives Yes June 11:09am Summary Purpose Reason for Referral SpecialtyDiagnoses / ProceduresReferred By ContactReferred To Contact Diagnoses Abnormal ankle brachial index (ELVIN) Critical limb ischemia of left lower extremity with gangrene (CMS-HCC) Venous ulcer of left leg (CMS-HCC) Procedures Vas art doppler lwr bilat mult lev/PVR Greer Su MD [address], [place] [address] Referral IDStatusReasonStart DateExpiration DateVisits RequestedVisits [id number] /[id number] / ProceduresReferred By ContactReferred To Contact Diagnoses Abnormal ankle brachial index (ELVIN) Critical limb ischemia of left lower extremity with gangrene ([facility]) [facility]) Procedures Vas venous duplex insufficiency lwr Greer Bravo MD [address], [address] [address] Referral IDStatusReasonStart DateExpiration DateVisits RequestedVisits [id number] Review/ Reason evaluate and t reat Diagnosis 1 Lumbar pain (M54.50) Referral Organization [facility] urosurger Referring Provider First Name Ny Referring Provider Last Name Jin Referring Provider Specialty Nurse Pract itioner Referred Organization [facility] Pain Managemen t [place] Referred Provider Wayne Mccallum Referred Address [address] , [place],[address] Referred Provider Specialty Pain Medicin e Referral Priority Routine General Notes Eryn Reynoso 02:02:11 PM >received today, patient previously seen by Dr Mccallum (last visit Feb 2022) and is still considered established. sending p2p at this time for scheduling. Reason evaluate and t reat for peripheral vascular disease Diagnosis 1 Peripheral vascular disease (I73.9) Referral Organization [facility] Referring Provider First Name Ny Referring Provider Last Name Annabel Referring Provider Specialty Nurse Pract itioner Referred Organization [facility] Vascular Surge ry Referred Provider Willy Yancey Referred Address [address] [place] [address] [address],[place], [place],[address] Referred Provider Specialty Vascular Samantha piotr Referral Priority Routine General Notes Eryn Reynoso 02:08:33 PM >received today, p2p sent for scheduling Reason *Waiting for appt chronic lumbar - recent MRI Diagnosis 1 Lumbar pain (M54.50) Referral Organization [facility] Brando díaz Referring Provider First Name Katelynn Referring Provider Last Name Amber Referring Provider Specialty Family Medi cine Referred Organization [facility] Spine Center Referred Provider Jose Clark Referred Address [address] [place] [address] [address] ,[place], [place],[address] Referred Provider Specialty Neurological Surgery Referral Priority Routine General Notes Shira Gan 12 / 12:19:28 PM >received today, referral faxed P2P Chief Complaint and Reason for Visit Chief Complaint Legs Swelling 2 WEEK CHECK UPReason for VisitRight femoral vein DVT Chief Complaint Legs Swelling 2 WEEK CHECK UP Referred by Ny Jin for PVD i73.9 OP SP LT KNEE PAIN REQUESTING INJECTIONReason for VisitEssential (primary) hypertension Knee arthropathy Right femoral vein DVT PAD (peripheral artery disease) Primary osteoarthritis of left knee Chief Complaint Legs Swelling 2 WEEK CHECK UP Referred by Ny Jin for PVD i73.9 OP SP LT KNEE PAIN REQUESTING INJECTION Wound on legReason for VisitEssential (primary) hypertension Knee arthropathy Right femoral vein DVT PAD (peripheral artery disease) Primary osteoarthritis of left knee PAD (peripheral artery disease) Venous ulcer of left leg Chief Complaint OP SP LT KNEE PAIN R EQUESTING INJECTION Wound on leg OP SP LT KNEE PAINReason for VisitPrimary osteoarthritis of left knee PAD (peripheral artery [...] Date L [facility]/Post Knee Surgery December 30 1:47pm wellness March 09, 2025 1: 27pm [...] FOR VISIT (unrecogniz ed section and content) ReasonCommentsPost-op Peripheral Arterial BypassNew Referral from Dr. Clark for Dr. Su for Abnormal ankle brachial index (ELVIN) [facility] Disk pushedto PACSEdemaWound not healing , Wound clinic would like you to look deeper into the PADSpecialtyDiagnoses / ProceduresReferred By ContactReferred To ContactVascular Surgery Diagnoses Abnormal ankle brachial index (ELVIN) Katelynn Clark MD [facility] [place] [address] Greer Su MD [address] [place] [address] Referral IDStatusReasonStart DateExpiration DateVisits RequestedVisits [id number] Review Specialty Services Required /[id number] Limb IschemiaReasonComments1 month follow up with no testing prior [...] Start: September 13, 2023 End: September 13, 2023Willy Yancey MDAttending ProviderActiveStart: September 13, 2023 End: September 13, 2023Ny Jin FISHER LAMPARA NET-CReferring ProviderActiveStart: September 13, 2023 End: September 13, 2023 Team Status: Inactive Member Role Status Dates Katelynn Clark MD Primary Care Provider Active Start: September 13, 2023 End: September 13, 2023Willy Yancey MDAttending ProviderActiveStart: September 13, 2023 End: September 13, 2023 Team Status: Inactive Member Role Status Dates Katelynn Clark MD Primary Care Provider Active Start: October 04, 2023 End: October 03anthony Najera II, MDActiveStart: October 04, 2023 End: October 04, 2023Eryn Green NP-CAttending ProviderActiveStart: October 04, 2023 End: October 04, 2023 Team Status: Inactive Member Role Status Dates Katelynn Clark MD Primary Care Provider Active Jose Tequila Najera II MDAttending ProviderActive Team Status: Active Member Role Status Dates Provider Conversion Attending Provider Active St art: June 27, 2023 Team Status: Inactive Member Role Status Dates Katelynn Clark MD Primary Care Provide r, Attending Provider Active Start: October 15, 2023 End: October 15, 2023 Team Status: Inactive Member Role Status Dates Katelynn Clark MD Primary Care Provider Active Start: December 13, 2023 End: December 12anthony Najera II MDAttending ProviderActiveStart: December 13, 2023 End: December 13, 2023Team MemberRelationshipSpecialtyStart [place] [address] [place] [id number] [facility]11/29/23Team MemberRelationshipSpecialtyStart [place] [address] [place] [address] PCP - GeneralFamily Medicine11/29/23Team MemberRelationshipSpecialtyStart DateEnd Date Katelynn Clark MD [facility] [place] [address] PCP - GeneralFamily Medicine11/29/23 Team Status: Inactive Member Role Status Dates NON STAFF Attending Provider Active Start: 2024 End: November 06, 2024 Team Status: Inactive Member Role Status Dates Katelynn Clark MD Primary Care Provider Active Start: December 30, 2024 End: December 30, 2024Lisa Damian ProviderActiveStart: December 30, 2024 End: December 30, 2024 Team Status: Inactive Member Role Status Dates Katelynn Clark MD Primary Care Provider Active Start: March 09, 2025 End: March 09, 2025Lisa Damian ProviderActiveStart: March 09, 2025 End: March 09, 2025Team MemberRelationshipSpecialtyStart DateEnd Date Katelynn Clark MD PCP - GeneralFamily Medicine12/25/22 Goals (unrecognized section and content) Goals may be documented in a n alternate section INFORMATION SOURCE (unrecogn ized section and content) DATE CREATED AUTHOR 12/22/2022 [facility] DATE CREATED AUTHOR AUTHOR'S ORGANIZ ATION 06/20/2023 [facility] DATE CREATED AUTHOR AUTHOR'S ORGANIZ ATION 11/21/2024 [facility] DATE CREATED AUTHOR AUTHOR'S ORGANIZ ATION 11/30/2024 [facility] DATE CREATED AUTHOR AUTHOR'S ORGANIZ ATION 12/10/2024 [facility] DATE CREATED AUTHOR AUTHOR'S ORGANIZ ATION 12/11/2024 [facility] DATE CREATED AUTHOR AUTHOR'S ORGANIZ ATION 02/24/2025 [facility] FOR RECORDS PERTAINING TO PATIENTS WHO [...] BE BASED ON THE PRIMARY CLINICAL RECORDS. [facility] [facility]. provides no warranty or guarantee of the accuracy or completeness of information in this document.
--- OUTSIDE RECORDS SUMMARY | 2025-05-25 08:36 | XMS_ITS | Clinical Summary ---
Author Organization [facility] Address [id number] [address] [place] [address] Care Team Providers Care Account Management Assistant Name Role Phone Vashti Engle MD Primary Care Provider [phone] Allergies No known active allergies Medications MedicationSigDispense QuantityRefillsLast FilledStart DateEnd DateStatus atorvastatin (LIPITOR) 40 mg tablet Take 1 tablet (40 mg total) by mouth in the morning.Active apixaban (ELIQUIS) 5 mg tablet Take 1 tablet (5 mg total) by mouth in the morning and 1 tablet (5 mg total) before bedtime.Active diclofenac (VOLTAREN) 75 mg EC tablet Take 1 tablet (75 mg total) by mouth daily as needed.08/29/2023ctive metoprolol succinate XL (TOPROL XL) 100 mg 24 hr tablet Take 1 tablet (100 mg total) by mouth in the morning.08/29/2023ctive traMADoL (ULTRAM) 50 mg tablet Take 1 tablet (50 mg total) by mouth every 6 (six) hours as needed.12/26/2023 Active verapamil SR (CALAN-SR) 180 mg CR tablet Take 1 tablet (180 mg total) by mouth in the morning.Active acetaminophen 500 mg capsule Take 1 capsule (500 mg total) by mouth every 6 (six) hours as needed.Active furosemide (LASIX) 40 mg tablet Take 1 tablet (40 mg total) by mouth 2 (two) times a day.Active loperamide (IMODIUM A-D) 2 mg tablet Take 1 tablet (2 mg total) by mouth 4 (four) times a day as needed for diarrhea. Active famotidine (PEPCID) 20 mg tablet Take 1 tablet (20 mg total) by mouth in the morning and 1 tablet (20 mg total) before bedtime.Active potassium chloride (K-TAB,KLOR-CON) 10 MEQ CR tablet Take 1 tablet (10 mEq total) by mouth in the morning.Active Active Problems ProblemNoted DateDiagnosed DateVenous ulcer of left leg01/03/2024 Assessment & Plan (02/28/2024 9:01 AM EDT): [...] and compression therapy Critical limb ischemia of left lower extremity with /20/2024 Assessment & Plan (02/28/2024 9:01 AM EDT): Wound pretty much healed. Discussed with her risk factors modification and follow-up as needed. Assessment & Plan (01/03/2024 10:48 AM EDT): PVR with toe pressure Social History Tobacco UseTypesPacks/DayYears UsedDateSmoking Tobacco: NeverSmokeless Tobacco: Never Tobacco Cessation:Counseling Given: Not Answered Alcohol UseStandard Drinks/WeekCommentsYes2 (1 standard drink = 0.6 oz pure alcohol)Hunger ScreeningAnswerDate RecordedWithin the past 12 months we worried whether our food would run out before we got money to buy more.Never True 02/28/2024Within the past 12 months the food we bought just didn't last and we didn't have money to get more.Never True02/28/2024CommentsUnknownSex and Gender InformationValueDate RecordedSex Assigned at BirthNot on fileLegal Sex Fymtcv4211/29/2023 3:23 PM EDTGender IdentityNot on fileSexual OrientationNot on file Last Filed Vital Signs Vital SignReadingTime TakenCommentsBlood Liqnwtro892/8208 8:47 AM EDT Pdcxj717002/28/2024 8:47 AM EDTTemperature--Respiratory Rate--Oxygen Saturation 100%02/28/2024 8:47 AM EDTInhaled Oxygen Concentration--Empmuu93 kg (205 lb) 02/28/2024 8:47 AM QKZDmxrlz114.6 cm (5' 4 )02/28/2024 8:47 AM EDTBody Mass Index35.19002/28/2024 8:47 AM EDT Plan of Treatment Health MaintenanceDue DateLast DoneCommentsDepression Beudxbxki47/06/1960 DTaP,Tdap and Td Vaccines (1 - Tdap)1967Zoster (Shingles) Vaccine (1 of 2) 1998Fall Risk Talnuiklz04/06/2013Tobacco Hlsqourqf48 COVID-19 Vaccine ( season)502/, 05/13/2022, 02/03/2022, Additional history existsInfluenza Btflhdq02/01/528387/, 04/24/2022, 06/02/2021, Additional history existsRSV ( or age 60+ yrs) Jipqhypmo61/05/2024 Medical Devices Not on file Insurance Care Teams Team MemberRelationshipSpecialtyStart DateEnd Date Vashti Engle MD [facility] [place] [address] PCP - GeneralFamily Medicine11/29/23
--- OUTSIDE RECORDS SUMMARY | 2025-05-25 08:36 | XMS_ITS | Encounter Summary ---
Author Organization [facility] Address [address] [place] [address] Care Team Providers Care Deputy County Attorney Name Role Phone Vashti Engle MD Primary Care Provider [phone] Encounter Details DateTypeDepartmentCare Team (Latest Contact Info)Zcyhkfumylq64/27/2024Clinisync Result Encounter [facility] External Department Unsolicited Greer Su MD [facility], [address] [address] Social History Tobacco UseTypesPacks/DayYears UsedDateSmoking Tobacco: NeverSmokeless Tobacco: NeverAlcohol UseStandard Drinks/WeekCommentsYes2 (1 standard drink = 0.6 oz pure alcohol)CommentsUnknownSex and Gender InformationValueDate RecordedSex Assigned at BirthNot on fileLegal QzjWcflss21/15/2023 7:17 PM EDTGender Identity Not on fileSexual OrientationNot on filedocumented as of this encounter Plan of Treatment Not on file documented as of this encounter Procedures Procedure NamePriorityDate/TimeAssociated DiagnosisCommentsSEGMENTAL BLOOD XULCDSTI38/27/2024 10:57 AM EDT documented in this encounter Results * SEGMENTAL BLOOD PRESSURE (01/10/2024 10:57 AM EDT)Anatomical RegionLaterality ModalityRadiographic ImagingSpecimen (Source)Anatomical Location / Laterality Collection Method / VolumeCollection TimeReceived Time01/10/2024 10:57 AM EDT Narrative 01/10/2024 11:00 AM EDT [facility] ?[address] ? [place] [address] ?Vein Report ? Signed ? Patient: RICKEL,KAMI J ?MR#: [id number] ?? : 1950 ?Acct:[id number] ?? Age/Sex: 73 / F ?ADM Date: 06/27/24 ?? Loc: VC ? Attending Dr: Greer Su M.D. ? Ordering Physician: Greer Su M.D. ?? Date of Service: 01/10/24 ?? Procedure(s): VC SEGMENTAL PRESSURES ?? Accession Number(s): [id number] ? cc: Vashti Engle M.D.; Greer Su M.D. ? [facility] ? [address] ? [place] [address] ? Patient Name: ?? KAMI FINK ? MRN: [facility]:[id number] ? date: 1950 ?Sex: F ?? Assigned Patient Location: VC ?? Current Patient Location: VC ?? Accession/Order Number: [id number] ?? Exam Date: 01/10/2024 ??08:04 ?Report Date: 01/10/2024 ??10:57 ? At the request of: ?? GREER ??TESSA ? Procedure: ??VC SEGMENTAL PRESSURES ? EXAM: VC SEGMENTAL PRESSURES ? HISTORY: I73.9 , left leg ulcer ? COMPARISON: None. ? FINDINGS: ? Segmental pressures presented as follows (right, left) in mmHg. ? Brachial: 155, 163 ?? Upper thigh: 187, 178 ?? Lower thigh: 203, 167 ?? Calf: 230, 170 ?? DPA: 204, 161 ?? SHELL MOLDING ROLLER BLAST OPERATOR: 207, 214 ?? 1st Toe: 106, 121 ? ELVIN: 1.27, 1.31 ?? TBI: 0.65, 0.74 ? The ABIs are borderline elevated suggesting arterial sclerosis ?? The TBI's are mildly low suggesting low risk of ischemia ? PVR waveforms: ? Right leg: ?? Thigh: Moderate to severe peripheral arterial disease ?? Above knee: Mild to moderate peripheral arterial disease ?? Below knee: Mild to moderate peripheral arterial disease ?? Right ankle: Moderate to severe peripheral arterial disease ? Left leg: ?? Thigh: Moderate to severe peripheral arterial disease ?? Above knee: Mild to moderate peripheral arterial disease ?? Below knee: Mild to moderate peripheral arterial disease ?? Right ankle: Moderate to severe peripheral arterial disease ? VEIN/VC SEGMENTAL PRESSURES ?? IMPRESSION: ? ABIs suggests arterial sclerosis ? PVR waveform suggests mild to severe bilateral peripheral arterial disease ? Electronically authenticated by: NIKHIL ??RAJ ?? Date: 01/10/2024 ??10:57 ? Dictated By: ?Nikhil Anthony M.D. ? Signed By: ?01/09/ 1100 ? DD/ 1057 ? TD/TT: ? Emergency Worker: Procedure Note Radiology, Radiologist, - 01/10/2024 [place] [id number] Vein Report Signed Patient: KAMI FINK JMR#: [id number] : 1950cct:[id number] Age/Sex: 73 / FADM Date: 01/10/24 Loc: VC Attending Dr: Greer Su M.D. Ordering Physician: Greer Su M.D. Date of Service: 01/10/24 Procedure(s): VC SEGMENTAL PRESSURES Accession Number(s): [id number] cc: Vashti Engle M.D.; Greer Su M.D. The [place] [address] Patient Name: KMAI FINK MRN: [facility]:[id number] date: 1950 Sex: F Assigned Patient Location: Current Patient Location: Accession/Order Number: [id number] Exam Date: 01/10/2024 08:04 Report Date: 01/10/2024 10:57 At the request of: GREER SU Procedure: VC SEGMENTAL PRESSURES EXAM: VC SEGMENTAL PRESSURES HISTORY: I73.9 , left leg ulcer COMPARISON: None. FINDINGS: Segmental pressures presented as follows (right, left) in mmHg. Brachial: 155, 163 Upper thigh: 187, 178 Lower thigh: 203, 167 Calf: 230, 170 DPA: 204, 161 SHELL MOLDING ROLLER BLAST OPERATOR: 207, 214 1st Toe: 106, 121 ELVIN: [...] M.D. Signed By:01/10/24 1100 DD/ 1057 TD/TT: Emergency Worker: Authorizing ProviderResult TypeResult StatusMohamed Marysol Su MDIMG XR PROCEDURES Final Result documented in this encounter Visit Diagnoses Not on filedocumented in this encounter Care Teams Team MemberRelationshipSpecialtyStart DateEnd Date Vashti Engle MD PCP - GeneralFamily Medicine12/25/22documented as of this encounter
--- OUTSIDE RECORDS SUMMARY | 2025-05-25 08:36 | XMS_ITS | Clinical Summary ---
Author Organization [facility] Address [address] [place] [address] Care Team Providers Care Assistant Manager Retail Name Role Phone Vashti Engle MD Primary Care Provider [phone] Allergies No known active allergies Medications MedicationSigDispense QuantityRefillsLast FilledStart DateEnd DateStatus diclofenac (Voltaren) 75 MG EC tablet Take 75 mg by mouth 2 (two) times a day as needed.12/10/2022ctive metoprolol tartrate (Lopressor) 100 MG tablet Take 100 mg by mouth in the morning and 100 mg before bedtime.11/26/2022ctive verapamil SR (Calan SR) 180 MG ER tablet Take 180 mg by mouth in the morning.10/11/2022ctive Active Problems No known active problems Family History Medical HistoryRelationNameCommentsHeart diseaseMotherHypertensionMotherRelation NameStatusCommentsFatherDeceasedMotherDeceased Social History Tobacco UseTypesPacks/DayYears UsedDateSmoking Tobacco: NeverSmokeless Tobacco: Never Tobacco Cessation:Counseling Given: Yes Alcohol UseStandard Drinks/WeekCommentsYes2 (1 standard drink = 0.6 oz pure alcohol)CommentsUnknownSex and Gender InformationValueDate RecordedSex Assigned at BirthNot on fileLegal CdtErztvz90/15/2023 7:17 PM EDTGender Identity Not on fileSexual OrientationNot on file Last Filed Vital Signs Vital SignReadingTime TakenCommentsBlood Evrccdoq632/8112 1:25 PM EST Ezxoj5286 1:25 PM ESTTemperature--Respiratory Rate--Oxygen Saturation-- Inhaled Oxygen Concentration--Ynqpgr18.3 kg (210 lb)06/18/2023 1:25 PM ESTHeight 162.6 cm (5' 4 )06/18/2023 1:25 PM ESTBody Mass Index36.0506/18/2023 1:25 PM EST Plan of Treatment Not on file Insurance Care Teams Team MemberRelationshipSpecialtyStart DateEnd Date Vashti Engle MD PCP - GeneralFamily Medicine12/25/22
--- OUTSIDE RECORDS SUMMARY | 2025-05-25 08:36 | XMS_ITS | Encounter Summary ---
Author Organization [facility] Address [address] [place] [address] Care Team Providers Care Professional Builder Name Role Phone Vashti Engle MD Primary Care Provider [phone] Encounter Details DateTypeDepartmentCare Team (Latest Contact Info)Ueisxjivgvx93/07/2025Telephone [facility] [address] [place] [address] Marisela Hayes MA Social History Tobacco UseTypesPacks/DayYears UsedDateSmoking Tobacco: NeverSmokeless Tobacco: NeverAlcohol UseStandard Drinks/WeekCommentsYes0 (1 standard drink = 0.6 oz pure alcohol)occasionalCommentsUnknownSex and Gender InformationValueDate RecordedSex Assigned at WwfqxRtlbig99/05/2025 3:32 PM EDTLegal SexFemale 11/05/2024 4:57 PM EDTGender YypegykxKafqjo50/05/2025 3:32 PM EDTSexual OrientationHeterosexual or Japxpsam58/05/2025 3:32 PM EDTdocumented as of this encounter Plan of Treatment Not on file documented as of this encounter Visit Diagnoses Not on filedocumented in this encounter Care Teams Team MemberRelationshipSpecialtyStart DateEnd Date Vashti Engle MD [address] [place] [address] PCP - General11/11/24documented as of this encounter
--- OUTSIDE RECORDS SUMMARY | 2025-05-25 08:36 | XMS_ITS | Encounter Summary ---
Author Organization [facility] Address [address] [place] [address] Care Team Providers Care Dot Net Developer Name Role Phone Vashti Engle MD Primary Care Provider [phone] Encounter Details DateTypeDepartmentCare Team (Latest Contact Info)Gmpphkmbrsw64/27/2024Clinisync Result Encounter [facility] External Department Unsolicited Greer Su MD [address] [facility], [address] [address] Social History Tobacco UseTypesPacks/DayYears UsedDateSmoking Tobacco: NeverSmokeless Tobacco: NeverAlcohol UseStandard Drinks/WeekCommentsYes2 (1 standard drink = 0.6 oz pure alcohol)CommentsUnknownSex and Gender InformationValueDate RecordedSex Assigned at BirthNot on fileLegal GojWhbpzm11/15/2023 7:17 PM EDTGender Identity Not on fileSexual OrientationNot on filedocumented as of this encounter Plan of Treatment Not on file documented as of this encounter Procedures Procedure NamePriorityDate/TimeAssociated DiagnosisCommentsVC EXT VENOUS REFLUX NAVJOT LMTD01/10/2024 3:08 PM EDT documented in this encounter Results * VC EXT VENOUS REFLUX NAVJOT LMTD (01/10/2024 3:08 PM EDT)Anatomical Region LateralityModalityOtherSpecimen (Source)Anatomical Location / Laterality Collection Method / VolumeCollection TimeReceived Time01/10/2024 3:08 PM EDT Narrative 01/10/2024 3:09 PM EDT [facility] ?[address] ? [place] [address] ?Vein Report ? Signed ? Patient: RICKEL,KAMI J ?MR#: [id number] ?? : 1950 ?Acct:[id number] ?? Age/Sex: 73 / F ?ADM Date: 06/27/24 ?? Loc: VC ? Attending Dr: Greer Su M.D. ? Ordering Physician: Greer Su M.D. ?? Date of Service: 01/10/24 ?? Procedure(s): VC EXT Venous Reflux NAVJOT LMTD ?? Accession Number(s): [id number] ? cc: Vashti Engle M.D.; Greer Su M.D. ? Patient Name: ? KAMI RICKEL ? MR#: [id number] ? : 1950 ? Exam Date: 01/10/2024 ?? Ordering Doctor: Greer Su M.D. ? RADIOLOGY REPORT ? PROCEDURE: ? VC EXT VENOUS REFLUX NAVJOT LMTD ? COMPARISON: ? None. ? INDICATIONS: ? I83.029 ? TECHNIQUE: ? Duplex imaging of the lower extremity to assess the deep and ?? superficial venous system for the presence of deep or superficial venous ?? incompetence and to document the location and severity of disease. ??The study ?? includes evaluation of the great saphenous vein (GSV), anterior accessory ?? saphenous vein (AASV) and small saphenous vein (SSV). ??Patient scanned in ?? reverse Trendelenburg and standing. ?? FINDINGS: ? RIGHT LOWER EXTREMITY: ?? Saphenofemoral Junction Reflux: Yes 9.4mm 2.2 sec ?? GSV: ? Diam (mm) ?Reflux/ Time (sec) ?? Proximal Thigh ? 5.5 ? Yes ?? 0.8 ?? Mid Thigh ? 4.1 ? Yes ?? 0.7 ?? Distal Thigh ? 4.0 ? No ?? Prox Calf ? 3.1 ? No ?? Mid Calf ? 2.7 ? No ? Saphenopopliteal Junction Reflux: 3.9mm ?No ? SSV: ? Proximal Calf ? 2.2 ? Yes ?? 0.6 ?? Mid Calf ? 2.0 ? No ? AASV: ? Proximal Thigh ? 4.1 ? Yes ?? 0.9 ?? Mid Thigh ? 3.1 ? Yes ?? 0.7 ?? Distal Thigh ? Thrombi: ? No acute or chronic thrombus visualized ? Compressibility: ? Normal ? Flow: ? Normal ? Preforator: ?? No perforators visualized, difficult to image calf due to fluid filled edema. ?? Tech Note: Incompetent GSV. Patent varicose vein prox/med calf 3.8mm with 0.5s ?? reflux. Patent varicose vein dist/med thigh off of GSV 3.9mm with 0.8s reflux. ? LEFT LOWER EXTREMITY: ?? Saphenofemoral Junction Reflux: Yes 7.3 mm 1.0 sec ?? GSV: ? Diam (mm) ? Reflux/Time (sec) ?? Proximal ??Thigh ? 6.4 ? Yes ?0.4 ?? Mid ?? Thigh ? 4.6 ? Yes ?0.7 ?? Distal ??Thigh ? 4.9 ? Yes ?1.0 ?? Prox ??Calf ? 5.1 ? Yes ?0.8 ?? Mid ??Calf ? 4.9 ? Yes ?0.9 ?? Saphenopopliteal Junction Relux: ? 3.0 mm ? Yes ?0.6 ?? SSV: ? Proximal ??Calf ? 2.5 ? Yes ??0.6 ?? Mid ??Calf ? 2.6 ? No ? AASV: ? Proximal ??Thigh ? 6.1 ? Yes ?1.9 ?? Mid ??Thigh ? Distal ??Thigh ? Thrombi: ? No acute or chronic thrombus visualized ? Compressibility: ? Normal ? Flow: ? Normal ? Coffee Plantation Worker: ?? Dist/med calf in area of wound 6.2mm with 1.4s reflux. ?? Tech Note: Incompetent GSV and dross puller. Patent varicose vein prox/med calf ?? off of GSV 3.9mm with 0.9s reflux. Patent varicose vein mid/med thigh off of ?? GSV 5.3mm with 1.8s reflux. ? CONCLUSION: ?? 1. Mild bilateral great saphenous vein venous insufficiency with ?? saphenofemoral junction reflux ?? 2. Minimal bilateral small saphenous vein venous insufficiency without ?? dilatation ?? 3. Mild bilateral anterior accessory saphenous vein venous insufficiency ?? 4. Incompetent perforating vein in the left leg in the region of the patient's ?? wound ?? 5. 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 Dictated by: Delroy Booth MD on 01/10/2024 at 15:05 ? Approved by: Delroy Booth MD on 01/10/2024 at 15:08 ? Dictated By: ?Delroy Booth M.D. ? Signed By: ?01/10/24 1509 ? DD/ 1508 ? TD/TT: ? Vice President Risk Management: Procedure Note Radiology, Radiologist, MD - 01/10/[address] [address] Vein Report Signed Patient: KAMI FINK JMR#: [id number] : 8Acct:[id number] Age/Sex: 73 / FADM Date: 01/10/24 Loc: VC Attending Dr: Mohamed Georges M.D. Ordering Physician: Greer Su M.D. Date of Service: 01/10/24 Procedure(s): VC EXT Venous Reflux NAVJOT LMTD Accession Number(s): [id number] cc: Vashti Engle M.D.; Greer Su M.D. Patient Name: KAMI FINK MR#: [id number] : 1950 Exam Date: 01/10/2024 Ordering Doctor: Greer uS M.D. RADIOLOGY REPORT PROCEDURE: VC EXT VENOUS [...] chronic thrombus visualized Compressibility: Normal Flow: Normal Coffee Plantation Worker: Dist/med calf in area of wound 6.2mm with 1.4s reflux. Tech Note: Incompetent GSV and dross puller. Patent varicose vein prox/medcalf off of GSV [...] M.D. Signed By:01/10/24 1509 DD/ 1508 TD/TT: Vice President Risk Management: Authorizing ProviderResult TypeResult StatusMohamed Fm Georges MDCLINISYNC IMAGING Final Result documented in this encounter Visit Diagnoses Not on filedocumented in this encounter Care Teams Team MemberRelationshipSpecialtyStart DateEnd Date Vashti Engle MD PCP - GeneralFamily Medicine12/25/22documented as of this encounter
[2025-05-25 08:42] VITALS: BP 180/74; PULSE 78; TEMP 37.4; O2SAT 99
[2025-05-25 09:22] VITALS: BP 154/78; BP 165/85; PULSE 77; PULSE 78; O2SAT 98
[2025-05-25] MEDS: BUPIVACAINE HCL 0.25% PF 25 MG/10 ML VIAL 4 ML INJ (09:33)
[2025-05-25] MEDS: LIDOCAINE HCL 2% 400 MG/20 ML MDV 16 ML INJ (09:33)
[2025-05-25] MEDS: METHYLPREDNISOLONE ACETATE 40 MG/ML VIAL INJ ×2 (09:34)
--- NOTE | 2025-05-25 09:40 | P.ON_ITS ---
Date of procedure: 05/25/25 Pre-op diagnosis: Pain due to lumbar spondylosis without myelopathy Post-op diagnosis: same as pre-op Procedure: Procedure: Bilateral L4-5, L5-S1 radiofrequency ablation Medications: Bupivacaine 0.25% 4cc, depomedrol 80mg, lidocaine 2% 6cc The patient was seen and examined in the preoperative holding area.? The site was marked.? Written informed consent was obtained and placed on the chart.? The patient was brought to the medical procedure unit and placed in the prone position.? A timeout was completed verifying correct patient, procedure, positioning, and special requirements.? The skin overlying the target points, the designated medial branch, were prepped and draped in the usual sterile fashion.? The target point was achieved with a 20-gauge 15 cm with a 10 mm curved active tip radiofrequency cannula under direct fluoroscopic visualizati on.? The needle was inserted at level L4 on the right side. Needle tip position was confirmed with lateral fluoroscopic position.? Motor stimulation was carried out at 2 Hz up to 5 volts with the absence of extremity activity.? This was repeated at level L5, S1 on right side.?? Sensory stimulation was carried out.? Concordant pain was realized at the above- mentioned sites.? Then radiofrequency lesioning was carried out times 90 seconds at 80 degrees times 2 lesions at each level.? The radiofrequency probe was removed prior to cannula removal.? The above-mentioned injectate was placed in 1 mL increments.? The needle was removed. The same procedure, with the same steps, was then completed on the left side at the same levels. Insertion sites were covered.? The patient was taken to the postoperative recovery area and monitored for an appropriate length of time before being found suitable for discharge in the company of a responsible adult.? Anesthesia: Local Surgeon: Marc Nowak Pathology: none sent Condition: stable Disposition: no change
== END 2025-05-25 09:42 | disposition home or self-care (01) ==
PROVIDERS: PCP Family Medicine; Visit Provider Anesthesiology
DX: M47.816 Spondylosis without myelopathy or radiculopathy, lumbar region (principal)
CPT/HCPCS: 64635; 64636; J0665; J1010

== ENCOUNTER 2025-06-25 10:54 | Outpatient (OUT) | payer MEDICARE, SELFPAY ==
--- OUTSIDE RECORDS SUMMARY | 2025-06-25 11:10 | XMS_ITS | CCD ---
Author Organization [facility] Care Team Providers Care Heel Sander Name Role Phone Wayne Mccallum Unavailable Jose Najera II Unavailable [phone] MD Katelynn Clark Primary Care Provider [phone] MD Jose Najera II Attending Provider DR KATELYNN CLARK Attending Unavailable AMBER, DR KATELYNN Porter Primary Care Unavailable AMBER, DR KATELYNN Porter Admitting Unavailable DR TIM TORREZ Consulting Unavailable AMBER, DR KATELYNN Porter Consulting Unavailable Katelynn Clark Unavailable ANABELLA STEWART Attending Unavailable ANABELLA STEWART Attending Unavailable Ny Jin Unavailable MD Katelynn Clark Primary Care Provider [phone] MD Willy Yancey Attending Provider Katelynn Clark [...] Care Provider Katelynn Clark MD Attending Provider [phone] Katelynn Clark MD Primary Care Provider Allergies Allergy ClassificationReported Allergen(s)Allergy TypeDate of OnsetReaction(s) Facility (6 sources)patient allergy list reviewed by nurse or physiciaPropensity to adverse jvfpfccra91-01-7252Efcnpgt:[facility] [place] Other (6 sources)Allergies ReconciledPropensity to adverse reactionsUnknoHedrick Medical Center [place] Other Medications Current Medications MedicationDrug Class(es)DatesSig (Normalized)Sig (Original)acetaminophen 500 mg oral tablet (20 sources)Start: 15-07-0146xylp 1 tablet by mouth four times daily as needed for painAcetaminophen 500 mg Tablet Active 500 MG PO Four times daily as needed for Pain 120 30 October 12:00am Complies with drug therapyStart: 10-25-2021 End: 92-49-8600bchq 1000 mg by mouth every eight hoursAcetaminophen Discontinued 1000 MG PO Q8H October 25, 2021 12:00am October 31, 2021 2:03pmStart: 10-06-2021 End: 58-04-8084mvyb 2 tablets by mouth every eight hoursAcetaminophen [...] mg oral tablet (20 sources)Factor Xa InhibitorStart: 54-13-3350ooms 1 tablet by mouth twice dailyApixaban (Eliquis) 5 mg tablet Active 0 .ROUTE .COMPLEX 60 January 19, 2025 4:32pm Take 1 tablet by mouth twice daily Complies with drug therapyStart: 08-30-2023 End: 12-30-3860lsnq 1 tablet by mouth twice dailyApixaban (Eliquis) 5 mg tablet Discontinued 5 MG PO Twice daily 56 November 03, 2024 3:00pm January 19, 2025 4:32pmdiclofenac potassium 50 mg oral tablet (20 sources)Nonsteroidal Anti-inflammatory DrugStart: 50-83-5223sfcy 1 tablet by mouth twice dailyDiclofenac Potassium 50 mg tablet Active 50 MG PO Twice daily 180 March 09, 2025 12:00am Complies with drug therapyStart: 10-31-2024 End: 10-76-7584hdflg 2 g topically four times dailyDiclofenac Sodium 1 % gel Discontinued 2 GM TOPICAL Four times daily October 31, 2024 12:00am 2024 1:28pm apply to single elbow, wrist or hand; for hand includes palm/fingers/back of handStart: 10-31-2024 End: 93-42-5143fkgna 2 g topically four times dailyDiclofenac Sodium 1 % gel Discontinued 2 GM TOPICAL Four times daily October 31, 2024 12:00am 2024 1:28pm apply to single elbow, wrist or hand; for hand includes palm/fingers/back of handStart: 02-25-4471zyvn 1 tablet by mouth once daily as neededdiclofenac (VOLTAREN) 75 mg EC tablet Take 1 tablet (75 mg total) by mouth daily as needed. 08/29/2023 ActiveStart: 22-06-2094Ujkbsves 1 % apply 1-2 grams to affected area Externally 4x's a day for 30 days Jan, ActiveStart: 23-91-0249Klgfjxbq 1 % apply 1-2 grams to affected area Externally 4x's a day for 30 days Jan, ActiveStart: 12-10-2022 End: 17-52-1487hjek 1 tablet by mouth twice dailyDiclofenac Sodium 75 mg tablet,delayed release (DR/EC) Discontinued 75 MG PO Twice daily December 13, 2023 12:00am December 13, 2023 2:58pmStart: 11-27-2017 End: 58-30-0866dzgz 1 tablet by mouth twice dailyDiclofenac Sodium 75 mg tablet,delayed release (DR/EC) Discontinued 75 MG PO Twice daily October 10, 2021 12:00am October 25, 2021 2:10pmdocusate sodium 50 mg / sennosides, half-way 8.6 mg oral tablet (3 sources)Start: 77-55-4508elir 2 tablets by mouth every twenty-four hours [...] mg oral tablet (3 sources)Serotonin-3 Receptor AntagonistStart: 51-93-1132nlhp 1 tablet by mouth three times daily as needed for nauseaOndansetron HCl 8 MG 1 tablet as needed for nausea Orally TID for 10 days MED TO BED UPON DISCHARGEDOS:10/24/2021 Sep, ActivetraMADol hydrochloride 50 mg oral tablet (20 sources)Opioid AgonistStart: 38-00-2563klmm 1 tablet by mouth every six hours as neededtraMADoL (ULTRAM) 50 mg tablet Take 1 tablet (50 mg total) by mouth every 6 (six) hours as needed. 12/26/2023 ActiveStart: 10-25-2021 End: 38-79-0504vhch 1 tablet by mouth every four hours as needed for pain Tramadol 50 mg Tablet Discontinued 50 MG PO Q4H as needed for Pain Scale 1 - 5 October 25, 2021 12:00am October 31, 2021 2:03pmStart: 59-45-4174qqmf 1 tablet by mouth every six hours as needed for paintraMADol HCl 50 MG 1 tablet as needed for pain Orally every 6 hrs for 10 days MED TO BED UPON DISCHARGE DOS:10/24/2021 Sep, ActiveStart: 07-28-2021 End: 19-26-4184zbop 1 tablet by mouth twice daily as needed for painTramadol 50 mg tablet Discontinued 50 MG PO Twice daily as needed for Pain October 10, 2021 12:00amApril 2021 9:50am Completed/Discontinued Medications MedicationDrug Class(es)DatesSig (Normalized)Sig (Original)ascorbic acid 500 mg oral tablet (18 sources)Vitamin CStart: 10-25-2021 End: 90-56-5699ivfp 1 tablet by mouth twice daily at mealtimeAscorbic Acid (Vitamin C) (Vitamin C) 500 mg Tablet Discontinued 500 MG PO Twice daily with meals 60 October 31, 2021 12:00am October 15, 2023 11:28amaspirin 81 mg delayed release oral tablet (20 sources)Platelet Aggregation Inhibitor, Nonsteroidal Anti-inflammatory Drug Start: 10-25-2021 End: 44-42-9724jkaz 1 tablet by mouth twice dailyAspirin 81 mg Tablet,Delayed Release (Dr/Ec) Discontinued 81 MG PO Twice daily 40 October 31, 2021 12:00am October 15, 2023 11:28amStart: 56-77-8727eskt 1 tablet by mouth twice daily Aspirin 81 MG 1 tablet Orally BID for 35 days MED TO BED UPON DISCHARGE DOS:10/24/2021 Sep, Activeatorvastatin 40 mg oral tablet (15 sources)HMG-CoA Reductase InhibitorStart: 09-16-2023 End: 15-98-2160lheh 1 tablet by mouth once dailyAtorvastatin 40 mg tablet Discontinued 40 MG PO Daily July 13, 2024 1:00am March 09, 2025 1:36pm calcium carbonate 1250 mg / cholecalciferol 200 unt oral tablet (2 sources)Vitamin DStart: 10-25-2021 End: 15-10-7495fbhs 1 tablet by mouth twice dailyCalcium Carbonate-Vitamin D3 (Oyster Shell Calcium-Vit D3) 500 mg-5 mcg (200 unit) Tablet Discontinued 1 TAB PO Twice daily 60 October 31, 2021 12:00am October 15, 2023 11:28amCalcium Carbonate-Vitamin D3 (Oyster Shell Calcium-Vit D3) 500 mg-5 mcg (200 unit) Tablet (16 sources)Start: 10-31-2021 End: 51-86-0600tudw 1 tablet by mouth twice dailyCalcium Carbonate-Vitamin D3 (Oyster Shell Calcium-Vit D3) 500 mg-5 mcg (200 unit) Tablet Discontinued 1 TAB PO Twice daily 60 30 October 30, 2021 11:00pm October 15, 2023 10:28amStart: 10-31-2021 End: 34-13-2686baog 1 tablet by mouth twice dailyCalcium Carbonate-Vitamin D3 (Oyster Shell Calcium-Vit D3) 500 mg-5 mcg (200 unit) Tablet Discontinued 1 TAB PO Twice daily 60 30 October 31, 2021 12:00am October 15, 2023 11:28amStart: 78-06-2939ckcg 1 tablet by mouth twice dailyCalcium Carbonate-Vitamin D3 (Oyster Shell Calcium-Vit D3) 500 mg-5 mcg (200 unit) Tablet Active 1 TAB PO Twice daily 60 30 October 31, 2021 12:00amStart: 30-45-4826emac 1 tablet by mouth twice dailyCalcium Carbonate-Vitamin D3 (Oyster Shell Calcium-Vit D3) 500 mg-5 mcg (200 unit) Tablet Active 1 TAB PO Twice daily 60 30 October 30, 2021 11:00pm Start: 10-25-2021 End: 11-50-9148yedk 1 tablet by mouth twice dailyCalcium Carbonate-Vitamin D3 (Oyster Shell Calcium-Vit D3) 500 mg-5 mcg (200 unit) Tablet Discontinued 1 TAB PO Twice daily October 25, 2021 12:00am October 31, 2021 2:03pmStart: 10-25-2021 End: 05-31-3688vklc 1 tablet by mouth twice dailyCalcium Carbonate-Vitamin D3 (Oyster Shell Calcium-Vit D3) 500 mg-5 mcg (200 unit) Tablet Discontinued 1 TAB PO Twice daily October 24, 2021 11:00pm October 31, 2021 1:03pmcefadroxil 500 mg oral capsule (12 sources)Cephalosporin AntibacterialStart: 10-25-2021 End: 18-31-1189xjzj 1 capsule by mouth twice dailyCefadroxil 500 mg Capsule Discontinued 500 MG PO Twice daily October 25, 2021 12:00am October 31, 2021 2:03pmStart: 60-56-1432jkyu 1 capsule by mouth every twelve hoursCefadroxil 500 MG 1 tablet Orally every 12 hrs for 7 days MED TO BED UPON DISCHARGE DOS:10/24/2021 24 Mar, 2022 Activecelecoxib 200 mg oral capsule (20 sources)Nonsteroidal Anti-inflammatory DrugStart: 10-06-2021 End: 87-01-2079txbg 1 capsule by mouth twice dailyCelecoxib 200 mg Capsule Discontinued 200 MG PO Twice daily October 25, 2021 12:00am October 31, 2021 2:03pmcephalexin 500 mg oral capsule (6 sources)Cephalosporin AntibacterialStart: 10-15-2023 End: 47-61-4415mpil 1 capsule by mouth three times dailyCephalexin 500 mg capsule Discontinued 500 MG PO Three times daily 02 02October 15, 2023 12:00am May 30, 2024 12:01pmciprofloxacin 3 mg/ml ophthalmic solution (1 source)Quinolone AntimicrobialStart: 12-30-2024 End: 93-87-4697Expxcyitwotlv Hcl 0.3 % drops Discontinued 0 OPHTHALMIC .COMPLEX December 30, 2024 12:00am March 09, 2025 1:36pm put 1-2 drps in affected eye(s) every 2hr up to 8 times/day x2days; then 4 times/day x5days Eye-Both doxycycline hyclate 100 mg oral capsule (1 source)Tetracycline-class DrugStart: 07-13-2024 End: 39-77-1473ouvl 1 capsule by mouth twice dailyDoxycycline Hyclate 100 mg capsule Discontinued 100 MG PO Twice daily 26 01July 13, 2024 1:00am March 09, 2025 1:56pmfamotidine 20 mg oral tablet (20 sources)Histamine-2 Receptor AntagonistStart: 10-10-2021 End: 16-13-0321ijnp 1 tablet by mouth once dailyFamotidine 20 mg Tablet Discontinued 20 MG PO Daily October 31, 2021 12:00am April 14, 2024 8:19amfurosemide 40 mg oral tablet (20 sources)Loop DiureticStart: 04-14-2024 End: 36-45-7928ordz 1 tablet by mouth once dailyFurosemide (Lasix) 40 mg tablet Discontinued 40 MG PO Daily July 01, 2024 1:06pm March 09, 2025 1:39pmtake 1 tablet by mouth twice dailyfurosemide (LASIX) 40 mg tablet Take 1 tablet (40 mg total) by mouth 2 (two) times a day. Activehyaluronate (20 sources)Start: 30-51-6773Swyzahb Mar,Start: 07-69-8840Npnejag Feb,Start: 00-10-5613Ynrkhfc Feb,Start: 28-83-5773Xhowpsd Feb,hyoscyamine sulfate 0.125 mg disintegrating oral tablet (18 sources)Start: 10-31-2021 End: 49-95-6658jsch 1 tablet by mouth four times daily as neededHyoscyamine Sulfate (Anaspaz) 0.125 mg Tablet,Disintegrating Discontinued 0.125 MG PO Four times daily as needed for IBS 120 October 31, 2021 12:00am November 03, 2024 1:28pmStart: 10-10-2021 End: 12-95-7574pczt 1 tablet by mouth four times daily as neededHyoscyamine Sulfate 0.125 mg Tablet, Sublingual Discontinued 0.125 MG PO Four times daily as neededfor IBS October 10, 2021 12:00am October 31, 2021 2:03pmmelatonin 5 mg oral tablet (9 sources)Start: 10-31-2021 End: 04-92-2228jaoz 1 tablet by mouth once daily at bedtime as neededMelatonin 5 mg Tablet Discontinued 5 MG PO Daily at bedtime as needed for Insomnia October 31, 2021 12:00am October 15, 2023 11:29am24 hr metoprolol succinate 100 mg extended release oral tablet (20 sources)beta-Adrenergic BlockerStart: 91-78-9760qgrz 1 tablet by mouth every twenty-four hours in the morningmetoprolol succinate XL (TOPROL XL) 100 mg 24 hr tablet Take 1 tablet (100 mg total) by mouth in the morning. 08/29/2023 Active Start: 08-29-2023 End: 73-64-0400ocag 1 tablet by mouth once dailyMetoprolol Succinate 100 mg tablet extended release 24 hr Discontinued 100 MG PO Daily July 13, 2024 1:00am March 09, 2025 1:36pmStart: 10-31-2021 End: 64-85-1631oupg 1 tablet by mouth in the morningmetoprolol tartrate (Lopressor) 100 MG tablet Take 100 mg by mouth in the morning and 100 mg before bedtime. 11/26/2022 ActiveStart: 10-10-2021 End: 90-19-5029vleo 1 tablet by mouth once daily in the morningMetoprolol Tartrate 100 mg tablet Discontinued 100 MG PO Every morning October 10, 2021 12:00am October 31, 2021 2:03pmtake 1 tablet by mouth every twenty-four hours Metoprolol Succinate ER 100 MG 1 tablet Orally Once a day for 90 days Active oxyCODONE hydrochloride 5 mg oral capsule (20 sources)Opioid AgonistStart: 12-01-2024 End: 31-02-0973drbc 1 capsule by mouth every eight hours as needed for pain Oxycodone 5 mg capsule Discontinued 5 MG PO Every 8 hours as needed for pain 20 7 December 12, 2024 December 30, 2024 2:16pmStart: 10-31-2021 End: 43-76-6472juqu 1 tablet by mouth four times daily as needed for pain Oxycodone 5 mg Tablet Discontinued 5 MG PO Four times daily as needed for Pain (Scale Score 7-10) 20 5 October 31, 2021 October 15, 2023 11:29amStart: 10-25-2021 End: 60-42-8160ipfe 1 tablet by mouth every four hours as needed for pain Oxycodone 5 mg Tablet Discontinued 5 MG PO Every 4 hours as needed for Pain Scale 6 - 10 October 25, 2021 October 31, 2021 2:03pmStart: 04-58-2149ferf 1 tablet by mouth every four hours as needed for painoxyCODONE HCl 5 MG 1 tablet as needed for pain Orally every 4 hrs for 10 days MED TO BED UPON DISCHARGE DOS:10/24/2021 Sep, Activepolyethylene glycol 3350 15776 mg powder for oral solution (12 sources)Osmotic LaxativeStart: 10-06-2021 End: 95-35-3458Rtvoymoggqon Glycol 3350 (Miralax) 17 gram Powder In Packet Discontinued 17 GM PO Daily as needed for Constipation October 25, 2021 12:00am October 31, 2021 2:03pmmicroencapsulated potassium chloride 20 meq extended release oral tablet (19 sources)Start: 04-14-2024 End: 39-66-4840Bmpbzulag Chloride (Klor-Con M20) 20 mEq tablet,ER particles/crystals Discontinued 20 MEQ PO Daily July 01, 2024 4:41pm November 03, 2024 1:08pmpotassium chloride (K-TAB,KLOR-CON) 10 MEQ CR tablet Take 1 tablet (10 mEq total) by mouth in the morning. ActiveraNITIdine 150 mg oral tablet (20 sources)Histamine-2 Receptor AntagonistStart: 08-29-2023 End: 10-32-1320uaza 1 tablet by mouth once daily at bedtimeRanitidine Hcl 150 mg tablet Discontinued 150 MG PO Daily at bedtime August 29, 2023 1:00am October 15, 2023 11:30amtake 1 tablet by mouth once daily at bedtimeZantac 150 MG 1 tablet at bedtime Orally Once a day prn ActiveTheraputic Injection (20 sources)Start: 07-56-0660Jbeguwpovl Injection Feb,triamcinolone acetonide 40 mg/ml injectable suspension (20 sources)CorticosteroidStart: 53-13-7132Xjvrdpk-40 Feb, 120 mgStart: 07-34-8344Qzmzixo-40 Feb, 40 mgStart: 56-08-9765Hvrlrgv -40 mg May, 40 mgStart: 34-70-6022Cgngqza -40 mg Jul, 40 mgStart: 11-04-2018 Kenalog -40 mg Oct, 40 mgStart: 08-20-5800Nssvqqc -40 mg November, 40 mg24 hr verapamil hydrochloride 180 mg extended release oral capsule (20 sources)Calcium Channel BlockerStart: 07-13-2024 End: 56-85-8102vdcf 1 capsule by mouth once dailyVerapamil 180 mg capsule,ext rel. pellets 24 hr Discontinued 180 MG PO Daily July 13, 2024 1:00am March 09, 2025 1:36pmStart: 09-27-2023 End: 89-97-5548elzs 1 tablet by mouth once dailyVerapamil 180 mg tablet extended release Active 0 .ROUTE .COMPLEX February 02, 2025 11:37am Take 1tablet by mouth once daily for 90 days Complies with drug therapyStart: 10-10-2021 End: 36-68-0258rcyn 1 tablet by mouth in the morningverapamil SR (Calan SR) 180 MG ER tablet Take 180 mg by mouth in the morning. 10/11/2022 Active Problems Active Problems Problem ClassificationProblemDateDocumented DateEpisodic/ChronicAbdominal pain (6 sources)Generalized abdominal pain; Translations: [Generalized abdominal pain]EpisodicAdministrative/social admission (9 sources)Other reduced mobility; Translations: [Impaired mobility and activities of daily living]32-09-9111RfexyjuvNvseiai on above:Problem List clean-up per request of Phys. EHR CmteCardiac dysrhythmias (10 sources)Paroxysmal atrial fibrillation; Translations: [Paroxysmal atrial fibrillation]Onset: 280110-30-7566BpgllwtMraljbduuqt and hemorrhagic disorders (2 sources)Spontaneous ecchymosesEpisodicDisorders of lipid metabolism (4 sources)Hyperlipidemia; Translations: [Hyperlipidemia, unspecified]Onset: 31-10-9889PvwrlwaCesuykzvu hypertension (20 sources)Hypertensive disorder; Translations: [Essential (primary) hypertension]Onset: 514446-11-5680CyruipjMbsuscz on above:Problem List clean-up per request of Phys. EHR CmteGangrene (5 sources)Critical lower limb ischemia ; Translations: [Atherosclerosis of [place] arteries of extremities with gangrene, left leg]Onset: 01-03-2024 94-40-6818YlejmyhLddvxqekhrdjc and screening for infectious disease (6 sources)Vaccination given; Translations: [Encounter for immunization]Episodic Inflammation; infection of eye (except that caused by tuberculosis or sexually transmitteddisease) (2 sources)Conjunctivitis of left eye; Translations: [Unspecified conjunctivitis]94-18-2741FqarxrzeJrwtdkiyyulqvr (20 sources)Primary gonarthrosis, bilateral; Translations: [Bilateral primary osteoarthritis of knee]Onset: 05-12-2021 Resolved: 21-43-5724RnpkqobVsnokpl on above:Problem List clean-up per request of Phys. EHR CmteOther acquired deformities (3 sources)Lumbar spondylolisthesis; Translations: [Spondylolisthesis, lumbar region]EpisodicOther acquired deformities (1 source)Spondylolisthesis, lumbar regionEpisodicOther aftercare (20 sources)Patient encounter status; Translations: [Aftercare following joint replacement surgery]ChronicOther aftercare (3 sources)Aftercare following joint replacement surgeryOnset: 11-16-2021 Resolved: 04-60-9894FoandjlEaqmf circulatory disease (6 sources)Elevated blood-pressure reading without diagnosis of hypertension; Translations: [Elevated blood-pressure reading, without diagnosis of hypertension]EpisodicOther connective tissue disease (20 sources)History of total knee arthroplasty; Translations: [Presence of right artificial knee joint]33-34-6034IphlmqeApbagsc on above:Problem List clean-up per request of Phys. EHR CmteOther connective tissue disease (6 sources)Presence of right artificial knee jointOnset: 11-16-2021 Resolved: 20-79-7837GakgabkQisev connective tissue disease (1 source)Presence of left artificial knee joint; Translations: [Presence of left artificial knee joint]Onset: 48-33-1517ZbxeieaSyxhn connective tissue disease (5 sources)Pain in left [...] bowel syndrome; Translations: [Irritable bowel syndrome without diarrhea]23-31-9151AnknrypZpmjfdp on above:Problem List clean-up per request of Phys. EHR CmteOther injuries and conditions due to external causes (6 sources)History of fall; Translations: [History of falling]EpisodicOther lower respiratory disease (1 source)Acute lower respiratory tract infection; Translations: [Unspecified acute lower respiratory infection]18-65-1595FuavyykqFpkrg nervous system disorders (20 sources)Chronic pain; Translations: [Other chronic pain]ChronicOther nervous system disorders (4 sources)Other chronic pain; Translations: [Other chronic pain G89.29]Onset: 05-12-2021 Resolved: 04-63-5060PykgwgoUsuoz nervous system disorders (10 sources)Polyneuropathy; Translations: [Polyneuropathy, unspecified]Chronic Other nervous system disorders (2 sources)Polyneuropathy, unspecifiedChronicOther nervous system disorders (9 sources)Postoperative pain ; Translations: [Other acute postprocedural pain] 94-66-1707LdbahjvgHoeqols on above:Problem List clean-up per request of Phys. EHR CmteOther nutritional; endocrine; and metabolic disorders (12 sources)Obese class I; Translations: [Body mass index (BMI) 31.0-31.9, adult]ChronicOther nutritional; endocrine; and metabolic disorders (6 sources)Body mass index 30+ - obesity; Translations: [Body mass index 36.0- 36.9, adult]Onset: 33-03-6374YgzalthIdefv nutritional; endocrine; and metabolic disorders (6 sources)Obese class II; Translations: [Body mass index 37.0-37.9, adult] Onset: 47-82-0845UhtlectRsmas nutritional; endocrine; and metabolic disorders (2 sources)Obesity; Translations: [Class 1 obesity with body mass index (BMI) of 34.0 to 34.9 in adult]13-83-6964ThmosqtZmzfjmlmuq and visceral atherosclerosis (15 sources)Peripheral vascular disease; Translations: [Peripheral vascular disease, unspecified]ChronicPhlebitis; thrombophlebitis and thromboembolism (12 sources)Deep venous thrombosis of lower extremity; Translations: [Acute embolism and thrombosis of right femoral vein]13-15-8900IjvvlyjzIzrtzyid codes; unclassified (11 sources)Patient encounter status; Translations: [Encounter for prophylactic measures, unspecified]25-37-8249WainlyebNofrdkh on above:Problem List clean-up per request of Phys. EHR CmteResidual codes; unclassified (5 sources)Edema of lower extremity; Translations: [Localized edema]11-18-2024 EpisodicResidual codes; unclassified (1 source)Preoperative sggpu41-28-3349EjedgvquDkrd and subcutaneous tissue infections (1 source)Cellulitis of left toeEpisodicSpondylosis; intervertebral disc disorders; other back problems (15 sources)Lumbar spondylosis with myelopathy; Translations: [Other spondylosis with myelopathy, lumbar region]Onset: 50-09-8123QmolloiYhjuwomvfwd; intervertebral disc disorders; other back problems (20 sources)Low back pain; Translations: [Lumbar pain]EpisodicUnclassified (2 sources)2 month follow upOnset: 07-41-0551Ijgymntu veins of lower extremity (14 sources)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; Translations: [Venous stasisulcer of left lower extremity]Onset: 540582-89-4934Skhuoyya Past or Other Problems Problem ClassificationProblemDateDocumented DateEpisodic/ChronicOther ear and sense organ disorders (6 sources)Impacted cerumen; Translations: [Impacted cerumen]Onset: 01-25-2016 EpisodicOther gastrointestinal disorders (6 sources)Diarrhea; Translations: [Diarrhea]Onset: 33-89-6618YecigdofDkmid non- traumatic joint disorders (4 sources)Pain in right knee; Translations: [Right knee pain M25.561]Onset: 05-12-2021 Resolved: 31-98-0323UwlemuhpOahpu non-traumatic joint disorders (4 sources)Pain in left knee; Translations: [Left knee pain M25.562]Onset: 05-12-2021 Resolved: 96-96-2756TdbuyniiEkdrg non-traumatic joint disorders (6 sources)Arthralgia of the lower leg; Translations: [Pain in right knee]Onset: 32-13-8690DegydgunQsmno upper respiratory infections (6 sources)Acute maxillary sinusitis; Translations: [Acute recurrent maxillary sinusitis]Onset: 70-73-9767VteusgtpEwaevjih codes; unclassified (5 sources)Localized edema; Translations: [Localized edema]Onset: 11-14-2024 EpisodicResidual codes; unclassified (1 source)Finding of systemic arterial pressure; Translations: [Other general symptoms and signs]69-41-5134CgamvrpgFhmmrfvjjsdr (1 source)Lumbar pain; Translations: [Lumbar pain]Unclassified (2 sources)Lumbar pain M54.50 Results Test NameValueInterpretationReference RangeFacilityOffice Visiton 02-19-2025 Follow-up [id number] Kami Fink 1950 F Date Provider Department Center 02/19/2025 [id number] MATA [facility] Family History Problem Relation Age of Onset Heart attack Mother Heart failure Father Coronary artery disease Sister Family Status - Relation Status Age at Mother Father Sister Level of Service:24989 [place] OFFICE/OUTPATIENT ESTABLISHED MOD MDM 30 MIN Reason for Visit and Comments: 2 month follow up [Other] Atrial Fibrillation [80] Hypertension [772944] Hyperlipidemia [182] Recent Echo [Other] Holter monitor [Other] MULLIGAN with being out in the heat [Other][facility] 36on [id number] Khoury, MD Physician Signed 11/28/2024 Copy I reviewed with the patient 3 days Holter monitor and it shows A-fib all the time and her ventricular rate is mostly controlled, continue current management. Please inform the patient LVM to inform patient of Dr. Mata's findings and recommendation.[facility] ([facility] VIEWS)on 48-70-2251WC KNEE LEFT (3 VIEWS)RADRPT EXAMINATION: XR KNEE [...] Signed by: Jada Lopez MD 12/05/24 Final resultNormToledo HospitalComment on above:Order Comment: Post op left 3V AP, LAT, Lgpypki97fs [id number] reviewed with the patient 3 days Holter monitor and it shows A-fib all the time and her ventricular rate is mostly controlled, continue current management. Please inform the patientNormalUniversMercy Health Defiance Hospital.eGFRon 53-96-6585MJF/1.73 sq M.predicted MDRD (S/P/Bld) [Vol rate/Area]mL/min/{1.73_m2} Normal>=60[facility] HospitalComment on above:Result Comment: [facility] Laboratories have implemented the eGFR calculation approach [...] 1 Age = yearsPerformed By: #### EGFR ####[address] [address]Exgux Metabolic Profileon 52-94-7484Rvkul gap [Moles/Vol] 6 mmol/LNormal4-12[facility] HospitalComment on above:Performed By: #### HGBHCT #### [address] [address]CRB Crea Ratio16.9 yxnfbIfstnz12.0-25.0[facility] HospitalComment on above:Performed By: #### HGBHCT #### [address] [address]Cdzpryg [Mass/Vol]8.5 mg/dLLow8.6-10.3BWVUMedicine Barnesville HospitalComment on above:Performed By: #### HGBHCT #### [address] [address]Fvfzcgdw [Moles/Vol]104 mmol/AApdwze26-100PdpxevqwsWyandot Memorial HospitalComment on above:Performed By: #### HGBHCT #### [address] [address]VV4 [Moles/Vol]27 mmol/JHiyggm65-85TzbeojcpoWyandot Memorial HospitalComment on above:Performed By: #### HGBHCT #### [address] [address]Ejpugeakkh [Mass/Vol]0.89 mg/dLNormal0.60-1.20[facility] HospitalComment on above:Performed By: #### HGBHCT #### [address] [address]Dasgyty [Mass/Vol]108 mg/cDKnup57-47StpjimmtxWyandot Memorial HospitalComment on above:Performed By: #### HGBHCT #### [address] [address]Otgaaemld [Moles/Vol]4.1 mmol/LNormal3.4-4.8BWVUMedicine Barnesville HospitalComment on above:Performed By: #### HGBHCT #### [address] [address]Pkcrge [Moles/Vol]137 mmol/ZDtravf269-844CzoxtswbzWyandot Memorial HospitalComment on above:Performed By: #### HGBHCT #### [address] [address]Lxhw nitrogen [Mass/Vol]15 mg/dLNormal7-25[facility] HospitalComment on above:Performed By: #### HGBHCT #### [address] [address]Rvxeiusrba Progress Noteon 04-03-0762Dlozqtelbr Progress Note Subjective 74F with history of [...] diastolic function, mild LAE, mild MR, mild NV ([facility]) Objective Vitals & Measurements T: 36.5 ?C [...] prophylaxis - Follow up with Dr. Barney, RUST application integration engineer, after discharge 2. Hypertension - Continue [...] signed by Roberto Riojas DO 11/26/24 06:44 EDTNormalWyandot Memorial Hospital Hgb & Hcton 59-21-9836Orxcxauhuw (Bld) [Volume fraction]30.6 %Low36.0-46.0 [facility] HospitalComment on above:Performed By: #### HGBHCT #### [address] [address]Bhpgoydtvd (Bld) [Mass/Vol]10.2 g/dLLow12.0-16.0[facility] HospitalComment on above:Performed By: #### HGBHCT #### [address] [address]Pqxhkjqvm Clinical Summaryon 29-87-4644Ktibbwokl Clinical Summary[address] [address] [phone] [address] [phone] Clinical Summary Person Information Name: Kami Fink Age: 74 Years : 1950 Sex: Female PCP: Amber MUJICA, Katelynn Salinas Marital Status: Phone: PCP: Race: White Ethnicity: Not or Language: Tajik Visit Id: Visit Reason: Surgery Speciality: Acuity: Enc Type: Inpatient Med Service: Orthopedics Arrival: 11/21/2024 13:18:45 Discharge: Dispo Type: Address: [address] [place] [id number] Preferred Communication Mode: Verbal Preferred Language: Tajik Discharge Diagnosis: Atrial fibrillation, persistent; Current use [...] LUMBAR RADIO FREQUENCY ABLATI (more content not included)...[facility] HospitalOrthopedic Progress Noteon 43-13-8076Aecjfcntps Progress NoteSubjective Patient resting comfortably in bed, [...] dressing. [facility] Anticipate DC to [facility] when arranged and medically stable Outpatient follow-up in 2 weeks Orders: oxyCODONE, 5 mg, Oral, Tab, q4hr, PRN moderate pain [4-6 on pain scale], First Dose: 11/21/24 18:04:00 EDT, Dispense From Location: [facility], 11/21/24 18:04:00 EDT oxyCODONE, 10 mg, Oral, Tab, q4hr, PRN severe pain [7-10 on pain scale], First Dose: 11/21/24 18:04:00 EDT, Dispense From Location: [facility], 11/21/24 18:04:00 EDT verapamil, 180 mg, Oral, Tab-ER, Daily, First Dose: 11/22/24 9:00:00 EDT, Dispense From Location: [facility], 11/21/24 18:06:00 EDT Electronically signed by Bella Yarbrough PA-C 11/26/24 07:17 EDT Patient care discussed with Bella Yarbrough PA-C. Agree with assessment and plan. Electronically signed by Luis Alberto Perez MD 11/27/24 13:55 EDTVan Wert County HospitalProgress Note-Nurseon 23-11-9626Gqbmgplj Note-NurseReport [facility]. All questions answered. Electronically signed by Dalila Adams 11/26/24 14:50 EDTVan Wert [facility] Hospital.eGFRon 42-85-5256DZS/1.73 sq M.predicted MDRD (S/P/Bld) [Vol rate/Area]mL/min/{1.73_m2} Normal>=60[facility] HospitalComment on above:Result Comment: [facility] Laboratories have implemented the eGFR calculation approach [...] Age = yearsPerformed By: #### HGBHCT #### [address] [address]Pdeix Metabolic Profileon 60-13-4599QIQ Crea Ratio15.6 ratio Afqonr90.0-20.0[facility] HospitalComment on above:Performed By: #### HGBHCT #### [address] [address]Hvssxvpmyf [Mass/Vol]0.96 mg/dLNormal0.44-1.03[facility] HospitalComment on above:Performed By: #### HGBHCT #### [address] [address]Gjel nitrogen [Mass/Vol]15 mg/dLNormal8-26[facility] HospitalComment on above:Performed By: #### HGBHCT #### [address] [address]Fjigf gap [Moles/Vol]5 mmol/LNormal4-12[facility] HospitalComment on above:Performed By: #### HGBHCT #### [address] [address]Aqbhsrc [Mass/Vol]8.8 mg/dLNormal8.6-10.3BWVUMedicine Barnesville HospitalComment on above:Performed By: #### HGBHCT #### [address] [address]Udcjmfjt [Moles/Vol]105 mmol/YYatwgz98-540TubqqrjrjWyandot Memorial HospitalComment on above:Performed By: #### HGBHCT #### [address] [address]AJ6 [Moles/Vol]26 mmol/HBbrfnl95-58KoiiwrjzrWyandot Memorial HospitalComment on above:Performed By: #### HGBHCT #### [address] [address]Trtkagy [Mass/Vol]109 mg/fUNjfa03-50QtosreqlaWyandot Memorial HospitalComment on above:Performed By: #### HGBHCT #### [address] [address]Narkqhcvk [Moles/Vol]4.1 mmol/LNormal3.4-4.8BWVUMedicine Barnesville HospitalComment on above:Performed By: #### HGBHCT #### [address] [address]Qtljhs [Moles/Vol]136 mmol/GQyntll935-072BqqneuedqWyandot Memorial HospitalComment on above:Performed By: #### HGBHCT #### [address] [address]Tgl & Hcton 95-80-6297Nrshffajle (Bld) [Volume fraction]32.8 % Low36.0-46.0[facility] HospitalComment on above:Performed By: #### HGBHCT #### [address] [address]Rixjevuxdk (Bld) [Mass/Vol]10.9 g/dLLow12.0-16.0[facility] HospitalComment on above:Performed By: #### HGBHCT #### [address] [address]Hvdzwfxhcl Progress Noteon 77-04-3931Xwtjtdkxhk Progress Note Subjective Patient resting comfortably in [...] by Luis Alberto Perez MD 11/25/24 20:16 [facility] CampusProgress Note-Nurseon 95-72-8844Sjvqepsn Note-NurseThis nurse entered the room at 0610 patient resting heart rate 127, blood pressure 164/70, this nurse auscultated heart irregular rate and rhythm. This nurse messaged hospitalist, ordered EKG. EKG came back with Afib with RVR. Transfer to ICU ordered. This nurse gave report to GUT PULLERMEGAN Maradiaga. Electronically signed by Dakota Reagan 11/25/24 09:20 [facility].eGFRon 11-39-1348HWK/1.73 sq M.predicted MDRD (S/P/Bld) [Vol rate/Area]mL/min/{1.73_m2} Normal>=60[facility] HospitalComment on above:Result Comment: [facility] Laboratories have implemented the eGFR calculation approach [...] 1 Age = yearsPerformed By: #### EGFR ####[address] [address]Vilww Metabolic Profileon 44-68-1811Seysj gap [Moles/Vol] 8 mmol/LNormal4-12[facility] HospitalComment on above:Performed By: #### CD:[id number] ####[address] [address]GTJ Crea Ratio19.5 bnxueNecpbp64.0-20.0[facility] Comment on above:Performed By: #### CD:[id number] ####[address] [address]Tjihqka [Mass/Vol]8.6 mg/dLNormal 8.6-10.3BWVUMedicine Barnesville HospitalComment on above:Performed By: #### CD:[id number] ####[address] [address]Cwzrxyny [Moles/Vol]102 mmol/CKpkkro14-431HwmfusjatWyandot Memorial Hospital Comment on above:Performed By: #### CD:[id number] ####[address] [address]CK0 [Moles/Vol]25 mmol/LNormal 22-32[facility] HospitalComment on above:Performed By: #### CD:[id number] ####[address] [address]Rhmazfjopt [Mass/Vol]0.87 mg/dLNormal0.44-1.03[facility] HospitalComment on above:Performed By: #### CD:[id number] ####[address] [address]Kyrbmtp [Mass/Vol]101 mg/dLHigh 70-99[facility] HospitalComment on above:Performed By: #### CD:[id number] ####[address] [address]Dnlyrmbjb [Moles/Vol]4.2 mmol/LNormal3.4-4.8BWVUMedicine Barnesville Hospital Comment on above:Performed By: #### CD:[id number] ####[address] [address]Xtuzij [Moles/Vol]135 mmol/L Xkdcee025-432GuhwncwuiWyandot Memorial HospitalComment on above:Performed By: #### CD:[id number] ####[address] [address]Ieys nitrogen [Mass/Vol]17 mg/dLNormal8-26[facility] Comment on above:Performed By: #### CD:[id number] ####[address] [address]Xfq & Hcton 90-59-9775Cjxvxskgmg (Bld) [Volume fraction]31.9 %Low36.0-46.0[facility] HospitalComment on above:Performed By: #### HGBHCT ####[address] [address]Vxszjyjehm (Bld) [Mass/Vol]10.7 g/dLLow12.0-16.0[facility] HospitalComment on above:Performed By: #### HGBHCT ####[address] [address]Ocegaezdjy Progress Noteon 27-25-1613Dnnxhjawll Progress NoteSubjective Patient resting comfortably in bed. [...] by Luis Alberto Perez MD 11/24/24 07:29 EDTNormalWyandot Memorial Hospital.eGFRon 43-25-1605HTB/1.73 sq M.predicted MDRD (S/P/Bld) [Vol rate/Area]mL/min/{1.73_m2} Normal>=60[facility] HospitalComment on above:Result Comment: [facility] Laboratories have implemented the eGFR calculation approach [...] Age = yearsPerformed By: #### HGBHCT #### [facility] [address] [place], [place] [address]Aydjk Metabolic Profileon 28-82-8981Ymtnj gap [Moles/Vol]5 mmol/LNormal4-12[facility] HospitalComment on above:Order Comment: missed 2 times 11/23/2024 05:40:48 EDT ssPerformed By: #### CD:[id number] ####[address] [address]SWM Crea Ratio24.1 uopgiGfwx45.0-20.0[facility] HospitalComment on above:Order Comment: missed 2 times 11/23/2024 05:40:48 EDT ssPerformed By: #### CD:[id number] ####[address] [address]Enqgwsi [Mass/Vol]8.7 mg/dLNormal8.6-10.3BWVUMedicine Barnesville Hospital Comment on above:Order Comment: missed 2 times 11/23/2024 05:40:48 EDT ss Performed By: #### CD:[id number] ####[address] [address]Mgvhpjgo [Moles/Vol]105 mmol/TGyunii15-231VagbxukfyWyandot Memorial HospitalComment on above:Order Comment: missed 2 times 11/23/2024 05:40:48 EDT ssPerformed By: #### CD:[id number] ####[facility] [place], [place] [address]NA3 [Moles/Vol]25 mmol/HMydblm69-00FwfpkchucWyandot Memorial HospitalComment on above:Order Comment: missed 2 times 11/23/2024 05:40:48 EDT ssPerformed By: #### CD:[id number] ####[address] [address]Irflgrluqy [Mass/Vol]0.83 mg/dLNormal 0.44-1.03[facility] HospitalComment on above:Order Comment: missed 2 times 11/23/2024 05:40:48 EDT ssPerformed By: #### CD:[id number] ####[address] [address]Gbajber [Mass/Vol]100 mg/yASixy38-68YjvysmijuWyandot Memorial HospitalComment on above:Order Comment: missed 2 times 11/23/2024 05:40:48 EDT ssPerformed By: #### CD:[id number] ####[address] [address]Fhurtrrzu [Moles/Vol]4.2 mmol/LNormal3.4-4.8BWVUMedicine Barnesville HospitalComment on above:Order Comment: missed 2 times 11/23/2024 05:40:48 EDT ssPerformed By: #### CD:[id number] ####[address] [address]Vejayq [Moles/Vol]135 mmol/JPstahz444-693YkrxphetyWyandot Memorial Hospital Comment on above:Order Comment: missed 2 times 11/23/2024 05:40:48 EDT ss Performed By: #### CD:[id number] ####[address] [address]Aewa nitrogen [Mass/Vol]20 mg/dLNormal8-26[facility] HospitalComment on above:Order Comment: missed 2 times 11/23/2024 05:40:48 EDT ssPerformed By: #### CD:[id number] ####[address] [address]Aco & Hcton 45-91-3274Fbadduejmp (Bld) [Volume fraction]35.4 %Low36.0-46.0[facility] HospitalComment on above:Performed By: #### HGBHCT ####[address] [address]Dzyirlgoxe (Bld) [Mass/Vol]11.5 g/dLLow12.0-16.0[facility] HospitalComment on above:Performed By: #### HGBHCT ####[address] [address]Gslgukdixj Progress Noteon 87-69-1875Ouoskrzxql Progress NoteSubjective Patient resting comfortably in bed. [...] by Luis Alberto Perez MD 11/23/24 13:46 EDTNormalWyandot Memorial Hospital.eGFRon 27-66-5945Brrwhhibs GFR55 mL/min/1.73m?Low>=60[facility] Comment on above:Result Comment: [facility] Laboratories have implemented the eGFR calculation approach [...] Age = yearsPerformed By: #### HGBHCT #### [address] [address]Wqlas Metabolic Profileon 50-03-4459Nxlzl gap [Moles/Vol]7 mmol/LNormal4-12[facility] HospitalComment on above:Performed By: #### HGBHCT #### [address] [address]EAP Crea Ratio20.0 yauxzRjzjcm15.0-20.0[facility] HospitalComment on above:Performed By: #### HGBHCT #### [address] [address]Hfzxtga [Mass/Vol]8.8 mg/dLNormal8.6-10.3BWVUMedicine Barnesville HospitalComment on above:Performed By: #### HGBHCT #### [address] [address]Eyavajtb [Moles/Vol]106 mmol/GTekaor97-119JqukrkiwnWyandot Memorial HospitalComment on above:Performed By: #### HGBHCT #### [address] [address]ZL6 [Moles/Vol]24 mmol/LExirax53-98RdvrsgsznWyandot Memorial HospitalComment on above:Performed By: #### HGBHCT #### [address] [address]Tudbzzqwjh [Mass/Vol]1.05 mg/dLHigh0.44-1.03[facility] HospitalComment on above:Performed By: #### HGBHCT #### [address] [address]Normabv [Mass/Vol]160 mg/vFKbrv80-47ZwztvhnneWyandot Memorial HospitalComment on above:Performed By: #### HGBHCT #### [address] [address]Emrmhyxat [Moles/Vol]4.3 mmol/LNormal3.4-4.8BWVUMedicine Barnesville HospitalComment on above:Performed By: #### HGBHCT #### [address] [address]Mianpj [Moles/Vol]137 mmol/WRmtdje735-128RowlrlzozWyandot Memorial HospitalComment on above:Performed By: #### HGBHCT #### [address] [address]Hzvl nitrogen [Mass/Vol]21 mg/dLNormal8-26[facility] HospitalComment on above:Performed By: #### HGBHCT #### [address] [address]Blk & Hcton 33-72-6927Jeisyfcfuo (Bld) [Volume fraction]35.5 % Low36.0-46.0[facility] HospitalComment on above:Performed By: #### HGBHCT #### [address] [address]Mysiixrmzj (Bld) [Mass/Vol]12.1 g/xPKbkakl51.0-16.0[facility] HospitalComment on above:Performed By: #### HGBHCT #### [address] [address]Gtgnhpwvbk Progress Noteon 73-00-8039Tlcvgnpgok Progress Note Subjective Patient resting comfortably in [...] of an acute complication. Signed By: Pippa UMJICA, Nikhil Stephenson Physical Exam General exam: Patient [...] by Luis Alberto Perez MD 11/22/24 16:05 [facility] Consultation Note - Genericon 19-73-9589Vzymakpzegde Note - GenericChief Complaint Left knee pain [...] Oral, q6hr, PRN (more content not included)...Normal [facility] HospitalXR Knee 1 or 2 Views Lefton 81-48-1219MR Knee 1 or 2 Views LeftEXAM: XR [...] Signed, Electronically Signed in Other Vendor System)Normal [facility]36on 75-34-591281Brwfetwfb echo result from 11/18/2024: MD Eusebia Coyle [...] notified she's cleared for surgery from cardiac standpoint.NormalWVUMedicine Harrison Community HospitalCardiac echo study ProcedureOrdered By: Vero Delgado on 79-13-1056Syylwh Sinus Valsalva3.1 cmBon [employer] Phone: Aortic Sinus Valsalva Index1.59 cm/m2Bon [employer] Phone: AV Cusp Mmode2 cmBon [employer] Phone: AV Mean Ipxawspa7ksCeGan [employer] Phone: AV Mean Velocity0.7 m/sBon [employer] Phone: AV Peak Ajlyrnmm1xlLeLfb [employer] Phone: AV Peak Velocity1 m/sBon [employer] Phone: AV Velocity Ratio0.6Bon [employer] Work Phone: AV VTI18.5 cmVal[facility]wise [facility] [employer] Work Phone: Body surface area Derived from formula2.02 m2[facility] [employer] Work Phone: E/E' Lateral9.75Bon [employer] Work Phone: EF BP55 %55 - 100 %[email or web address] Work Phone: [phone] Zicjddgrc96 %[employer] Work Phone: Est. RA Uvmhwypr8twSfDyn [employer] Work Phone: Fractional Shortening 2D20 %28 - 44 %[employer] Work Phone: Interpretation and review of laboratory results AbnormalBon [employer] Work Phone: IVSd1.1 cmAbnormal0.6 - 0.9 cmValleywise [facility] [employer] Work Phone: LA Area 2C24.4 cm2Bon [employer] Work Phone: LA Area 4C23.9 cm2Bon [employer] Work Phone: LA Major Axis6.2 [email or web address] Work Phone: LA Minor Axis6.4 [email or web address] Work Phone: [phone] Volume BP78 vXOmxeqmzo93 - 52 mLBon [employer] Work Phone: LA Volume Index BP40 ml/x9Jxwxjyxz28 - 34 ml/m2Bon [employer] Work Phone: [phone] Volume Index MOD A2C40 ml/a4Fjbanyat91 - 34 ml/m2 [employer] Work Phone: [phone] Volume Index MOD A4C39 ml/k5Htmsizez83 - 34 ml/m2 [employer] Work Phone: LA Volume MOD A2C78 fUEerbxbmj61 - 52 mLBon [employer] Work Phone: LA Volume MOD A4C77 gHRuqvlrvk38 - 52 mLArtvalue.com Work Phone: LV E' Lateral Srqxlyax15.1 cm/sBon [employer] Work Phone: LV EDV A2C56 [email or web address] Work Phone: LV EDV A4C55 [email or web address] Work Phone: LV EDV Index A2C29 mL/m2Bon [employer] Work Phone: LV EDV Index A4C28 mL/m2Bon [employer] Work Phone: LV Ejection Fraction A2C55 %[email or web address] Work Phone: LV Ejection Fraction A4C52 %Bon [employer] Work Phone: LV ESV A2C25 [email or web address] Work Phone: LV ESV A4C27 [email or web address] Work Phone: LV ESV Index A2C13 mL/m2Bon [employer] Work Phone: LV ESV Index A4C14 mL/m2Bon [employer] Work Phone: LV Mass 2D164 eGpyzaimp24 - 162 gBon [employer] Work Phone: LV Mass 2D Index84.1 g/m243 - 95 g/m2Bon [employer] Work Phone: LV RWT Ratio0.44Bon [employer] Work Phone: [phone] cm3.9 - 5.3 cmBon [employer] Work Phone: LVIDd Index2.31 cm/m2Bon [employer] Work Phone: OJRKv0.6 cmBon [employer] Phone: [phone] Index1.85 cm/m2Bon [employer] Phone: [phone] Mean Zitcksru1agLnCjg [employer] Phone: [phone] Peak Indgjqzu0dvGdXgg [employer] Phone: LVOT Peak Velocity0.6 m/sBon [employer] Phone: LVOT VTI13.7 cmVal[facility] [employer] Phone: [phone]:AV VTI Index0.74[facility] [employer] Phone: [phone] cmAbnormal0.6 - 0.9 cmValleywise Behavioral [facility] Center [facility] [employer] Phone: [phone] E Velocity1.18 m/sBBio[employer] Phone: [phone] E Wave Deceleration Nquk720 msValleywise Behavioral Health Center [facility] [employer] Phone: [phone] Max Velocity0.8 m/sBon [employer] Phone: [phone] Peak Qbiwspga4ewAjHes [employer] Phone: [phone] Basal Dimension3 cmValleywise Behavior[facility] [employer] Phone: [phone] cm1.7 [facility] [employer] Phone: [phone] [employer] Phone: [phone] echo study Procedureon 60-75-5695Upct Ventricle: Normal left ventricular systolic function with [...] Details Image quality: adequate. No contrast was given.[facility] CV CPACSRadiology Study observation (narrative)[facility] HospitalOffice Visiton 30-95-0309Lctydo- up [id number] Kami Fink 1950 F Date Provider Department Center 11/14/2024 01093-QEVTLAVICKEY MATA LANEY Doe Family History Problem Relation Age of Onset Heart attack Mother Heart failure Father Coronary artery disease Sister Family Status - Relation Status Age at Mother Father Sister Level of Service:19338 [place] OFFICE/OUTPATIENT NEW MODERATE MDM 45 MINUTES Reason for Visit and Comments: Atrial Fibrillation [80] New Patient [632] pre op clearance [Other] -NormalUnTriHealth McCullough-Hyde Memorial HospitalUrine Culture on 91-39-2187Inqrmhpy identified Cx Nom (U)ORDERING PHYSICIAN LUIS ALBERTO PEREZ Urine Culture Results No Growth 2 Days PERFORMED BY: [address] [address] PATHOLOGIST INDUSTRIAL MAINTENANCE TECHNICIAN GREER MCKENZIE M.D.NormalThe Unc Health Blue Ridge - Valdese Physician GroupComment on above: Performed By: #### CUU #### [address] [address] USANo Panel InformationOrdered By: Radiologist Radiology on 61-68-0586[facility] Work Phone: SEGMENTAL BLOOD PRESSUREon 26-30-6345FgvJames [place] [phone] Vein Report Signed Patient: KAMI FINK MR#: [id number] : 1950 Acct:[id number] Age/Sex: 73 / F ADM Date: 01/10/24 Loc: [facility] Attending Dr: Greer Su M.D. Ordering Physician: Greer Su M.D. Date of Service: 01/10/24 Procedure(s): VC SEGMENTAL PRESSURES Accession Number(s): [id number] cc: Katelynn Clark M.D.; Greer Su M.D. [address] [address] Patient Name: KAMI FINK MRN: [id number] date: 1950 Sex: F Assigned Patient Location: Current Patient Location: VC Accession/Order Number: [id number] Exam Date: 01/10/2024 08:04 Report Date: 01/10/2024 10:57 At the request of: GREER SU Procedure: VC SEGMENTAL PRESSURES EXAM: VC SEGMENTAL PRESSURES HISTORY: I73.9 , left leg ulcer COMPARISON: None. FINDINGS: Segmental pressures presented as follows (right, left) in mmHg. Brachial: 155, 163 Upper thigh: 187, 178 Lower thigh: 203, 167 Calf: 230, 170 DPA: 204, 161 INVESTIGATOR CLAIMS: 207, 214 1st Toe: 106, 121 ELVIN: [...] Signed By: 01/10/24 1100 DD/ 1057 TD/TT: Insurance Salesman:DUGLASadiology, Radiologist, - 01/10/2024 [place] [address] Vein Report Signed Patient: KAMI FINK MR#: [id number] : 1950 Acct:[id number] Age/Sex: 73 / F ADM Date: 01/10/24 Loc: [facility] Attending Dr: Greer Su M.D. Ordering Physician: Greer Su M.D. Date of Service: 01/10/24 Procedure(s): VC SEGMENTAL PRESSURES Accession Number(s): [id number] cc: Katelynn Clark M.D.; Greer Su M.D. The [place] [address] Patient Name: KAMI FINK MRN: [id number] date: 1950 Sex: F Assigned Patient Location: Current Patient Location: Accession/Order Number: [id number] Exam Date: 01/10/2024 08:04 Report Date: 01/10/2024 10:57 At the request of: GREER SU Procedure: VC SEGMENTAL PRESSURES EXAM: VC SEGMENTAL PRESSURES HISTORY: I73.9 , left leg ulcer COMPARISON: None. FINDINGS: Segmental pressures presented as follows (right, left) in mmHg. Brachial: 155, 163 Upper thigh: 187, 178 Lower thigh: 203, 167 Calf: 230, 170 DPA: 204, 161 INVESTIGATOR CLAIMS: 207, 214 1st Toe: 106, 121 ELVIN: [...] Signed By: 01/10/24 1100 DD/ 1057 TD/TT: Insurance Salesman: ANTONIO HealthcareRadiology Study observation (narrative)[facility] Medical CenterVC EXT VENOUS REFLUX NAVJOT LMTDon 00-59-2112[place] [address] Vein Report Signed Patient: KAMI FINK MR#: [id number] : 1950 Acct:[id number] Age/Sex: 73 / F ADM Date: 01/10/24 Loc: VC Attending Dr: Greer Su M.D. Ordering Physician: Greer Su M.D. Date of Service: 01/10/24 Procedure(s): VC EXT Venous Reflux NAVJOT LMTD Accession Number(s): [id number] cc: Katelynn Clark M.D.; Greer Su M.D. Patient Name: KAMI FINK MR#: [id number] : 1950 Exam Date: 01/10/2024 Ordering Doctor: [...] chronic thrombus visualized Compressibility: Normal Flow: Normal [employer] Contact Printer: Dist/med calf in area of wound 6.2mm with 1.4s reflux. 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 Patent varicose vein prox/med calf off of [...] Signed By: 01/10/24 1509 DD/ 1508 TD/TT: Insurance Salesman:PRUDENCIOHRadiology, Radiologist, - 01/10/[address] [address] Vein Report Signed Patient: KAMI FINK MR#: [id number] : 1950 Acct:[id number] Age/Sex: 73 / F ADM Date: 01/10/24 Loc: [facility] Attending Dr: Greer Su M.D. Ordering Physician: Greer Su M.D. Date of Service: 01/10/24 Procedure(s): VC EXT Venous Reflux NAVJOT LMTD Accession Number(s): [id number] cc: Katelynn Clark M.D.; Greer Su M.D. Patient Name: KAMI FINK MR#: [id number] : 1950 Exam Date: 01/10/2024 Ordering Doctor: [...] chronic thrombus visualized Compressibility: Normal Flow: Normal [employer] Contact Printer: Dist/med calf in area of wound 6.2mm with 1.4s reflux. 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 Patent varicose vein prox/med calf off of [...] Signed By: 01/10/24 1509 DD/ 1508 TD/TT: Insurance Salesman: ANTONIO HealthcareRadiology Study observation (narrative)[facility] CenterXR [facility] RT 2Von 70-20-7282ES knee RT 2[facility] [employer] Other XR knee RT 2VFR[facility] [employer] Other XR knee RT [id number] Alejandro [facility] [employer] Other XR knee RT 2VSandVALENTE lopez 28848Edimo [employer] Other XR knee RT 2VXRBaptist Medical Center South [place] Other XR knee RT 2VSignedWinchen[place] Other XR knee RT 2VPatient: Kami Fink MR#: [id number] [place] [employer] Other XR knee RT [id number] [employer] Other XR knee RT 2VDOB: 1950 Acct:[id number] [employer] Other XR knee RT 2VAge/Sex: 72 / F ADM Date: 11/02/22[place] [employer] Other XR knee RT 2VLoc: SOXD Room: Type: [facility] [employer] Other XR knee RT 2VAttending Dr: Jose Najera II, MD [place] [employer] Other XR knee RT 2VCopies to: Jose Najera MDWinchendon [employer] Other XR knee RT 2VOrdering Provider: Jose Najera MD [place] [employer] Other XR knee RT 2VDate of Service: 11/02/22[place] [employer] Other XR knee RT 2VAccession #: ([id number] XR/XR knee RT 2V: History of total right knee replacementWinchendon [employer] Other XR knee RT 2VRIGHT KNEE - 2 viewsW[place]hen[place] [employer] Other XR knee RT 2VCLINICAL HISTORY: Follow-up right TKA [place] [employer] Other XR knee RT 2VCOMPARISON: Right knee 01/18/2022[place] [employer] Other XR knee RT 2VFINDINGS:[employer] Other XR knee RT 2VNo evidence of hardware complication or acute bony process.[employer] Other XR knee RT 2VORDER #: [id number] XR/XR knee RT 2VNocooper [facility] [place] Other XR knee RT 2VIMPRESSION:[employer] Other XR knee RT 2VNO EVIDENCE OF HARDWARE COMPLICATION. [employer] Other XR knee RT 2VImpression dictated by: Audie Mondragon Jr., DEdgardOEdgard11/02/2022 3:18 [facility] [employer] Other XR knee RT 2VDictation Location: [address] [employer] Other XR knee RT 2VTranscribed By: PWS 11/02/[address] [place] [address] [place] Other XR knee RT 2VDictated By: Audie Mondragon Jr, DO 11/02/22 [facility] Center[facility] [place] Other XR knee RT 2VSigned By:[employer] Other XR knee RT 2V11/02/[address] [place] [address] [place] Other Vital Signs Date TimeVital SignValuePerforming WujpnpspuXnyzhxpr71-32-2442 13:35-0400Body cmxbya211.29 cmKatelynn Clark MD Work Phone: [facility]08-25-2025 13:35-0400 Body mass index (BMI) [Ratio]34.5 kg/e7XfgainKatelynn Clark MD Work Phone: [facility]08-25-2025 13:35-0400 Body yddske71.81 kgKatelynn Clark MD Work Phone: 1(766)[address]08-25-2025 13:35-0400 Diastolic blood eenlxlsn11 mm[Hg]Katelynn Clark MD Work Phone: 1(875)[address]08-25-2025 13:35-0400 Heart rate78 /Ninfa Clark MD Work Phone: 1(447)[address] [place], [place] 1206608-25-2025 13:35-0400 Respiratory rate14 /Ninfa Clark MD Work Phone: 1(633)[address]08-25-2025 13:35-0400 SaO2% (BldA) [Mass fraction]97 %Katelynn Clark MD Work Phone: 1(511)[address] [place], [place] 1206608-25-2025 13:35-0400 Systolic blood mm[Hg]Katelynn Clark MD Work Phone: 1(536)[address] [place], [place] 1206606-17-2025 13:49-0400 Body ktuflo248.29 cmKatelynn Clark MD Work Phone: 1(725)[address] [place], [place] 1206606-17-2025 13:49-0400 Body mass index (BMI) [Ratio]34.9 kg/p0LyaeuuKatelynn Clark MD Work Phone: 1(569)[address] [place], [place] 1206606-17-2025 13:49-0400 Body abmkcm89.71 kgKatelynn Clark MD Work Phone: 1(266)[address] [place], [place] 1206606-17-2025 13:49-0400 Diastolic blood tzvetwbs17 mm[Hg]Katelynn Clark MD Work Phone: 1(189)[address]06-17-2025 13:49-0400 Heart rate76 /Ninfa Clark MD Work Phone: 1(102)[address] [place], [place] 1206606-17-2025 13:49-0400 Systolic blood iiabfslc953 mm[Hg]Katelynn Clark MD Work Phone: 1(852)[address] [place], [place] 1206605-06-2025 11:01-0400 Body cboyms645.5 cmSwanda Mata MD Work Phone: [facility]05-06-2025 11:01-0400Body mass index (BMI) [Ratio]34.18 kg/k3ThzzrVickey Mata MD Work Phone: [facility]05-06-2025 11:01-0400Body hiozhr62.27 kgVickey Mata MD Work Phone: [facility]04-21-2025 13:02-0400Body tzekun118.29 cm[facility]04-21-2025 13:02-0400Body mass index (BMI) [Ratio]34.7 kg/j1WubyjuacxMercy Health Willard Hospital04-21-2025 13:02-0400Body hcucpk61.26 [facility]04-21-2025 13:02-0400Diastolic blood lsvmysma14 mm[Hg][facility] 11-03-2024 13:02-0400Heart rate88 /[facility] 11-03-2024 13:02-0400Systolic blood awutzvdk077 mm[Hg][facility]11-15-2024 10:57-0500Body svabst929.29 cmMercy Health [facility] Hospital11-15-2024 10:57-0500Body mass index (BMI) [Ratio]35 kg/h0VkurfqfwwMercy Health Willard Hospital11-15-2024 10:57-0500Body pufvwk03.17 kgMercy Health Willard Hospital11-15-2024 10:57-0500Diastolic blood rrhiwknl27 mm[Hg] [facility]11-15-2024 10:57-0500Heart rate66 /[facility]11-15-2024 10:57-0500Systolic blood wkoeobcl029 mm[Hg] [facility]08-15-2024 08:47-0400Body .6 cmGreer Su MD Work Phone: [facility]08-15-2024 08:47-0400Body mass index (BMI) [Ratio]35.19 kg/t9LokbijcGreer Su MD Work Phone: 1(939)[facility]08-15-2024 08:47-0400Body .99 kgGreer Su MD Work Phone: 1(202)[facility]08-15-2024 08:47-0400Diastolic blood cfgsovfm74 mm[Hg]Greer Su MD Work Phone: 1(987)[facility]08-15-2024 08:47-0400Heart rate 94 /minGreer Su MD Work Phone: 1(390)[facility]08-15-2024 08:47-1980JbL7% (BldA) [Mass fraction]100 %Greer Su MD Work Phone: 1(631)[facility]08-15-2024 08:47-0400Systolic blood htitugxt289 mm[Hg]Greer Su MD Work Phone: 1(994)[facility]07-11-2024 08:52-0400Body eypzdc776.6 cmGreer Su MD Work Phone: 1(727)[facility]07-11-2024 08:52-0400Body mass index (BMI) [Ratio]34.84 kg/o1XkfhsdbGreer Su MD Work Phone: 1(058)[facility]07-11-2024 08:52-0400Body .08 kgGreer Su MD Work Phone: 1(040)[facility]07-11-2024 08:52-0400Diastolic blood ufdzclot75 mm[Hg]Greer Su MD Work Phone: 1(043)[facility]07-11-2024 08:52-0400Heart rate 116 /minGreer Su MD Work Phone: 1(285)[facility]07-11-2024 08:52-3833IbR3% (BldA) [Mass fraction]99 %Greer Su MD Work Phone: 1(638)[facility]07-11-2024 08:52-0400Systolic blood xalurjlb737 mm[Hg]Greer Su MD Work Phone: 1(419)[facility]06-20-2024 10:35-0400Diastolic blood syfikrbg65 mm[Hg]Greer Su MD Work Phone: 1(103)[facility]06-20-2024 10:35-0168JqF7% (BldA) [Mass fraction]98 %Greer Su MD Work Phone: 1(351)[facility]06-20-2024 10:35-0400Systolic blood wqblzgnu220 mm[Hg]Greer Su MD Work Phone: 1(497)[facility]06-20-2024 10:33-0400Body neicjt244.6 cmGreer Su MD Work Phone: 1(460)[facility]06-20-2024 10:33-0400Body mass index (BMI) [Ratio]34.84 kg/g4FqthewmGreer Su MD Work Phone: 1(834)[facility]06-20-2024 10:33-0400Body bwubij25.08 kgGreer Su MD Work Phone: 1(460)[facility]06-20-2024 10:33-0400Heart rate 116 /minGreer Su MD Work Phone: 1(284)[facility]05-30-2024 14:51-0400Body inrlxr704.29 cmMer[facility]05-30-2024 14:51-0400Body mass index (BMI) [Ratio]35.4 kg/x7AlahrkjetMercy Health Willard Hospital05-30-2024 14:51-0400Body nfajyd40.07 kgMer[facility]04-01-2024 11:18-0400Body .29 cmMD Katelynn Clark Work Phone: [facility]04-01-2024 11:18-0400 Body mass index (BMI) [Ratio]36.6 kg/m2MD Katelynn Clark Work Phone: [facility]04-01-2024 11:18-0400 Body ucpylg09.36 kgMD Katelynn lCark Work Phone: [facility]04-01-2024 11:18-0400 Diastolic blood mm[Hg]MD Katelynn Clark Work Phone: 1(474)[address]04-01-2024 11:18-0400 Heart rate77 /minMD Katelynn Clark Work Phone: 1(213)[address]04-01-2024 11:18-0400 Systolic blood xwtctuus551 mm[Hg]MD Katelynn Clark Work Phone: 1(396)[address]02-29-2024 11:54-0500 Body wpaqzw403.29 cmMD Katelynn Clark Work Phone: 1(389)[address]02-29-2024 11:54-0500 Body mass index (BMI) [Ratio]37.8 kg/m2MD Katelynn Clark Work Phone: 1(253)[address]02-29-2024 11:54-0500 Body cytfyhwmzoc51.6 [degF]MD Katelynn Clark Work Phone: 1(173)[address]02-29-2024 11:54-0500 Body .42 kgMD Katelynn Clark Work Phone: 1(072)[address]02-29-2024 11:54-0500 Diastolic blood uggzlhle59 mm[Hg]MD Katelynn Clark Work Phone: 1(365)[address]02-29-2024 11:54-0500 Heart rate89 /minMD Katelynn Clark Work Phone: 1(158)401-[address] [place], [place] 2450302-29-2024 11:54-0500 Respiratory rate16 /minMD Katelynn Clark Work Phone: 1(593)[address]02-29-2024 11:54-0500 SaO2% (BldA) [Mass fraction]99 %MD Katelynn Clark Work Phone: 1(477)846[facility]48[facility]02-29-2024 11:54-0500 Systolic blood jmytfzyt578 mm[Hg]MD Katelynn Clark Work Phone: 1(398)[address]02-15-2024 10:41-0500 Body fahvgx407.29 cmMer[facility]02-15-2024 10:41-0500Body mass index (BMI) [Ratio]37.8 kg/o9WgyfxqpaiMercy Health Willard Hospital02-15-2024 10:41-0500Body kybptg80.42 kgMercy Health [facility] Hospital02-15-2024 10:41-0500Diastolic blood kfmanvvf49 mm[Hg][facility] 08-30-2023 10:41-0500Heart rate87 /minMercy Health Willard Hospital 08-30-2023 10:41-0500Systolic blood dxrauzjd157 mm[Hg][facility]02-08-2024 09:20-0500Body vuxghz590.29 cmMiniica Jin Other [employer] Other 02-08-2024 09:20-0500Body mass index (BMI) [Ratio] 37.48 kg/n4Gbvnpdy Jin Other [employer] Other 02-08-2024 09:20-0500Body biccpg87.52 kgGeolindybryan Jin Other [employer] Other 02-01-2024 10:00-0500Body .29 cmKatelynn Clark Other [facility]02-01-2024 10:00-0500 Body mass index (BMI) [Ratio]37.83 kg/q6WvksasKatelynn Clark Other [employer] Other 02-01-2024 10:00-0500Body eiamsd59.43 kgMichella Amber Other [employer] Other 02-01-2024 10:00-0500Body .42 [facility]02-01-2024 10:00-0500Diastolic blood mucxpjup90 mm[Hg] Katelynn Clark Other [facility]02-01-2024 10:00-0500 Systolic blood kobriavc834 mm[Hg]Katelynnrolando Clark Other [facility]11-14-2023 11:30-0500 Body qjioig705.29 cmKatelynn Amber Other [employer] Other 11-14-2023 11:30-0500Body mass index (BMI) [Ratio] 37.41 kg/f6Nejxjm Amber Other [employer] Other 11-14-2023 11:30-0500Body nsgpez24.34 kgKatelynn Amber Other [employer] Other 11-14-2023 11:30-0500Diastolic blood sishfnkz16 mm[Hg] Katelynn Clark Other [employer] Other 11-14-2023 11:30-0500Respiratory rate16 /minKatelynn Amber Other [employer] Other 11-14-2023 11:30-0500Systolic blood iojhpbrl087 mm[Hg] Katelynn Clark Other [employer] Other 08-31-2023 08:45-0400Body tyvjvi302.29 cmRobert Reinaldo II Other [employer] Other 08-31-2023 08:45-0400Body mass index (BMI) [Ratio] 38.01 kg/k7Aycbyd [place] Other [employer] Other 08-31-2023 08:45-0400Body .88 kgRobert Reinaldo II Other [employer] Other 07-06-2023 11:15-0400Body twogia375.29 cmKatelynn Clark Other [employer] Other 07-06-2023 11:15-0400Body mass index (BMI) [Ratio] 38.01 kg/d0LqrbkrKatelynn Clark Other [employer] Other 07-06-2023 11:15-0400Body .88 kgDahianaisaias Amber Other [employer] Other 07-06-2023 11:15-0400Diastolic blood pjbyzpdr28 mm[Hg] Katelynn Clark Other [employer] Other 07-06-2023 11:15-0400Systolic blood okjygvad159 mm[Hg] Katelynn Clark Other [employer] Other 05-30-2023 13:45-0400Body rjraez276.29 cmKatelynn Clark Other [employer] Other 05-30-2023 13:45-0400Body mass index (BMI) [Ratio] 37.48 kg/p7WkiltlKatelynn Clark Other [employer] Other 05-30-2023 13:45-0400Body zuxlgy48.52 kgKatelynn Clark Other [employer] Other 05-30-2023 13:45-0400Diastolic blood uzkfwpyq99 mm[Hg] Katelynn Clark Other [employer] Other 05-30-2023 13:45-0400Systolic blood zawiolpx120 mm[Hg] Katelynn Clark Other [employer] Other 2023 15:45-0400Body aiuznz741.64 cmRobert Rio [place]rib[place] II Other [employer] Other 05-25-2022 11:45-0400Body pxrtuh677.64 cmRobert [place] II Other [employer] Other 05-25-2022 11:45-0400Body mass index (BMI) [Ratio]34.7 kg/n2Dmnxqw [place] II Other [employer] Other 05-25-2022 11:45-0400Body .52 kgRobert [place] II Other [employer] Other 05-04-2022 11:45-0400Body .64 cmRobert Rio [place] II Other [employer] Other 05-04-2022 11:45-0400Body mass index (BMI) [Ratio]34.7 kg/s4Lweext [place] II Other [employer] Other 05-04-2022 11:45-0400Body atckfx79.52 kgRobert Reinaldo II Other [employer] Other 03-24-2022 16:00-0400Body kupdde607.64 cmRobert Rio [place] II Other [employer] Other 03-24-2022 16:00-0400Body mass index (BMI) [Ratio]34.7 kg/n9Bjjrer Reinaldo II Other [employer] Other 03-24-2022 16:00-0400Body mogmpc44.52 kgRobert [place] II Other [employer] Other 03-01-2022 16:15-0500Body ozvwyi875.64 cmThomas Felter Other [employer] Other 03-01-2022 16:15-0500Body mass index (BMI) [Ratio]34.7 kg/b6Esvnfk Felter Other [employer] Other 03-01-2022 16:15-0500Body ejsdfg22.52 kgThomas Felter Other [employer] Other Encounters Encounter DateEncounter TypeCare ProviderFacilityStart: 03-09-2025 End: 55-02-9395gcqgzveptmDsjjxy E Braun MD Work Phone: [facility] Work Phone: Start: 03-09-2025 End: 82-20-9328Munpvsb encounter procedureKatelynn Clark MD-[facility] Work Phone: Start: 02-19-2025 End: 48-48-6568lbuwtpiduaZUSTQMemorial Health System [facility] Hospitaltart: 12-30-2024 End: 67-55-3275Nllvikl encounter procedureKatelynn Clark MD-[facility] Work Phone: Start: 78-18-0283whqqhpaqiuIDWX S [facility]tart: 11-21-2024 End: 45-53-5753Lubdwawwrp and management of inpatientTod Zacarias MD [facility]: 11-18-2024 End: 12-20-3182liagultqjkOKCGZOhioHealth Nelsonville Health Centertart: 11-18-2024 Encounter for other preprocedural examinationSSelect [facility] Start: 11-18-2024 End: 38-65-7684Nzwgjieelujx stateSwanda Mata MD Work Phone: [facility] Work Phone: Start: 11-18-2024 End: 43-68-6085Omtpvqspjd hospital visit by Aparna Mata MD Work Phone: [facility] Non-Invasive CardiologyComment on above:Pre-operative clearance; Leg edema; Paroxysmal atrial fibrillation (HCC)Start: 11-14-2024 End: 83-94-2081jnueijkokyTIWZTMemorial Health System Marietta Memorial Hospitaltart: 11-14-2024 End: 31-84-7495Qwvmfutgn for other preprocedural examinationSKindred Hospital Daytontart: 11-13-2024 End: 20-27-1988otlxtnrdreXyja S Smith MDFacility:[facility]art: 11-06-2024 End: 22-21-9095sgjaolvepjPGLSelect Medical [facility] Work Phone: Start: 11-06-2024 End: 77-86-7368Txmznqlf [facility]-LAB [facility] HospStart: 11-03-2024 End: 79-95-9306gtnrljekxqVzpvlzvjqAv[facility] Work Phone: Start: 11-03-2024 End: 85-63-2367Jasvzew encounter procedureUn[facility] Work Phone: Start: 05-30-2024 End: 65-43-0078wzwshcttyhUjbcehztdSumma Health [facility] Work Phone: Start: 05-30-2024 End: 03-75-1426Iyfupsu encounter procedureUn[facility] Work Phone: Start: 93-44-4580Ork-patient / Non-visitFirjohnston memorial hospital [facility] Work Phone: Start: 02-28-2024 End: 36-73-1323Txbctu outpatient visit 10 minutesMohamed Chad Su MD Work Phone: [facility] Vascular SurgeryComment on above:Venous ulcer of left leg (CMS-HCC) (Primary Dx); Critical limb ischemia of left lower extremity with gangrene (CMS-HCC)Start: 01-24-2024 End: 94-74-8496Nuxbcc outpatient visit 25 minutesMohamed Chad Su MD Work Phone: [facility] Comment on above:Venous ulcer of left leg (CMS-HCC) (Primary Dx)Start: 01-10-2024 End: 22-09-8126Qqozbhuvf Result EncounterMohamed Marysol Su MD Work Phone: [facility] External Department UnsolicitedStart: 01-10-2024 End: 27-34-5019Djidccprm Result EncounterMohamed Marysol Su MD Work Phone: [facility] External Department UnsolicitedStart: 01-03-2024 End: 96-57-0910Nmuztk outpatient new 45 minutesMohamed Chad Su MD Work Phone: [facility] Comment on above:Critical limb ischemia of left lower extremity with gangrene (CMS-HCC) (Primary Dx); Abnormal ankle brachial index (ELVIN); Venous ulcer of left leg (CMS-HCC)Start: 12-13-2023 End: 38-88-2815eqohpbvwmfEkcgvmowiSumma Health [facility] Campus Work Phone: Start: 12-13-2023 End: 16-28-4568Jlivwxp encounter procedureUn[facility] Work Phone: Start: 10-15-2023 End: 36-29-5104tsbgogfenrSW Marcia E Braun Work Phone: [facility] Work Phone: Start: 10-15-2023 End: 69-11-2627Ksqsdln encounter procedureMD Katelynn Clark Work Phone: [facility] Work Phone: Start: 10-04-2023 End: 12-46-1419zvyymzxeaaYT Marcia E Braun Work Phone: [facility] Work Phone: Start: 10-04-2023 End: 23-35-0386Xynaqfs encounter procedureMD Bakeria Amber Work Phone: [facility] Work Phone: Start: 09-13-2023 End: 45-50-1160Exsoaeh encounter procedureMD Katelynn Clark Work Phone: [facility] VascularStart: 09-13-2023 End: 77-16-3417Aqqcsac encounter procedureMD Katelynn Clark Work Phone: [facility] Work Phone: Start: 08-30-2023 End: 77-79-5081lxocttyakwYyytnoolrSumma Health [facility] Campus Work Phone: Start: 08-30-2023 End: 52-71-1499Baalszr encounter procedureUn[facility] Work Phone: Start: 08-27-2023 End: 74-97-9679hanfmspskrYanodqb Springer Other [place] [employer] Other start: 13-90-6825Livkunurm encounterNy Jin [facility] Referral CoordinatorStart: 08-23-2023 End: 32-64-3749vzjqltimgrMekhptk Springer Other [place] Other start: 26-58-4719Ydfzlk outpatient new 45 minutes Ny LouisSy[facility] [place] NeurosurgeryStart: 08-16-2023 End: 97-36-7990kuoulzxjbrBhnfsw Braun Other [place] Other Start: 61-53-7085Wqvley outpatient visit 15 minutes [facility] ClinicStart: 48-43-0815Bqvogjdpd encounterMarcigladys [facility] ClinicStart: 08-16-2023 End: 70-88-7690Uachiuu encounter procedureCamille Physician Group-Start: 08-13-2023 End: 70-70-0180evzudpimikHmqiya Reinaldo II Other [employer] Other Start: 83-86-3415Bprkmgfwl encounterRobert Rio [place] II [facility] OrthopedicsStart: 07-03-2023 End: 66-71-2891meshkkfwsiPswiql Clark Other [employer] Other Start: 08-74-4829Kgzawdwng encounterMarcia Tanvir [facility] ClinicStart: 87-36-2761Jspsocq encounter procedureFirjermain Physician Group-Start: 06-18-2023 End: 73-56-9506reabiapvhoMYCE D DOLCENot AvailableStart: 06-11-2023 End: 19-43-8779rvubitleqtGnropq Clark Other [employer] Other Start: 02-20-8587Ltgzkjnre encounterMarcia Tanvir [facility]els [facility] ClinicStart: 06-01-2023 End: 88-07-6003ohsbszdfosBJGO D DOLCENot AvailableStart: 05-29-2023 End: 87-03-2037puawmtvvwpGakhee Clark Other [employer] Other Start: 83-41-3427Adegfq outpatient visit 15 minutes Katelynn [facility] ClinicStart: 84-94-4713Diometahn encounterMarcigladys Michaels [facility] ClinicStart: 05-14-2023 End: 10-22-0136qeiwjyxwpoUnnuqj Reinaldo II Other [employer] Other Start: 98-40-7801Erxuhausc encounterRobert [place] II [facility] OrthopedicsStart: 04-02-2023 End: 78-73-0258bowogpvpmwMtvaun Clark Other [employer] Other Start: 10-01-4468Upyvjwgsz encounterMarcia BraunG [facility] ClinicStart: 03-15-2023 End: 03-15-5848fpcyvkhfjmFxczqh [place] II Other [employer] Other Start: 11-81-8187Vnudtc outpatient visit 25 minutes Jose Najera IIFPG [facility] OrthopedicsStart: 02-26-2023 End: 59-12-8976tkvwavfdeaTpsxxq Clark Other [employer] [place] Other Start: 09-23-3133Dbqywzfkg encounterMarcia BraunG [facility] ClinicStart: 02-08-2023 End: 35-59-4209xztcjiswhcAachoz [place] II Other [employer] Other Start: 50-71-2936Cutukr outpatient visit 25 minutes Jose Najera IIFPG [facility] OrthopedicsStart: 01-19-2023 End: 19-21-1490xpnjzbillzEresjn Clark Other noK[employer] Other Start: 41-14-1208Wojvgtgug encounterMarcia BraunFPG [facility] ClinicStart: 01-18-2023 End: 71-73-2044xtpqmveztrWugntf Clark Other [employer] Other Start: 83-07-3231Rerhgf outpatient visit 15 minutes Katelynn ClarkG [facility] ClinicStart: 01-17-2023 End: 65-83-0259vcndcvfetpDntvqi [place] II Other [employer] Other Start: 12-06-7690Aqmznbqgv encounterRobert Reinaldo II [facility] OrthopedicsStart: 12-13-2022 End: 38-92-8311msemigzwaiVuysho Braun Other [employer] Other Start: 78-44-0380Nndulxtgl encounterRobert Reinaldo II [facility] OrthopedicsStart: 12-12-2022 End: 96-42-1085uxqkzdcodtIC KATELYNN CLARKFacility:M2Fkvsa: 31-36-2197Vaqleb outpatient visit 15 minutesKatelynn ClarkFPG [facility] ClinicStart: 11-02-2022 End: 27-78-7661uufqtsokbdRcctce [place] II Other [employer] Other Start: 99-46-6218Bvfmgx outpatient visit 25 minutes Jose [place] IIFPG [facility] OrthopedicsStart: 10-10-2022 End: 29-64-7383oxpluxkgobAihsob Reinaldo II Other [employer] [place] Other Start: 46-00-9818Unwjmptrz encounterRobert Reinaldo II [facility] OrthopedicsStart: 06-23-2022 End: 34-30-0895hvwyticjabAF Marcia E Braun Work Phone: [facility] Work Phone: Start: 06-23-2022 End: 54-35-6368Matjxdd encounter procedureMD Katelynn Clark Work Phone: [facility] Start: 04-13-2022 End: 83-18-7619yrmtuxevskGzrvse [place] II Other [employer] Other Start: 04-73-2811Xdjtwfkwx encounterRobert Reinaldo II [facility] OrthopedicsStart: 03-06-2022 End: 39-23-5377ontnhqkqdvUelkyu Felter Other [employer] Other Start: 00-69-6053Eonkza outpatient visit 15 minutes [facility] [place] CreekStart: 01-18-2022(Post-Op) Post-Op Jose [place] IIFPG [facility] OrthopedicsStart: 01-18-2022 End: 09-55-5558kazpwpmltzQoyzpg Reinaldo II Other [employer] Other Start: 12-07-2021(Post-Op) Post-OpRobert [place] II [facility]icsStart: 12-07-2021 End: 24-08-3486tiazwlvkgnJfklpx [place] II Other [employer] Other Start: 95-38-0374Sel-procedure evaluation checkRobert [place] II Other [employer] Other Start: 11-16-2021 End: 91-31-3322larjrhqonvDzeqxe [place] II Other [employer] Other Start: 51-75-8393Wmlovu outpatient visit 15 minutes Jose De [place]aisle [facility]: 10-14-2021(Prolonged) Prolonged ServicesRobert Reinaldo IIFP[facility]Start: 10-14-2021 End: 62-28-3861ckzzczxjvbDpougp Reinaldo II Other [employer] Other Start: 10-06-2021 End: 82-58-4629zstfjeppzmStgtrn Reinaldo II Other [employer] Other Start: 29-49-7478Fvmyvs outpatient visit 25 minutes Jose Najera [facility]FP[facility]Start: 09-13-2021 End: 33-60-3357jsknhoxlhjUkjxjc [place] II Other [employer] Other Start: 20-27-1481Wihgsk outpatient visit 25 minutes Wayne FelterFPG [facility] [place]Start: 76-81-4321Gvlmwnbcn encounter Jose Najera IIFP[facility]Start: 08-09-2021 End: 90-80-8580totqjbwssvElnvqg Felter Other [employer] Other Start: 78-65-8452Dmiljbgle encounterThomas FelterFPLurdes Stoner OrthopedicsStart: 07-28-2021 End: 83-86-4426hquvfblkdaJjmhiw Felter Other [employer] Other Start: 82-45-6029Nawaiw outpatient visit 15 minutes Wayne FelterFPG Pain Management Bone CreekStart: 73-59-5320Bxyvl health examinationRobert Rio Arriba II Other [employer] Other Start: 14-30-1214Ogenrc outpatient visit 15 minutes Wayne FelterFPG [facility] [place] Procedures DateProcedureProcedure DetailPerforming ClinicianStart: 96-63-2532Olbo [facility] r-t 2d w/wom-mode compl spec&colr Leno Mata MD Work Phone: Start: 73-17-9688EI EXT VENOUS REFLUX NAVJOT LMTDMohamed Marysol Su MD Work Phone: Start: 55-83-2371MDAGRRHYR BLOOD PRESSUREMohamed Marysol Su MD Work Phone: Start: 64-45-7850Iamlx brachial pressure indexMD Katelynn Clark Work Phone: Start: 20-75-5884Zwhhmaywfp examination of kneeMD Katelynn Clark Work Phone: Start: 10-95-5417Evxmnlhqr for malignant neoplasm of colonRobert Rio Arriba II Other Start: 55-46-2264Nzjbjhf examination of patientRobert Reinaldo II Other Start: 12-10-8843Gvhzzvemb mammographyRobert Rio Ar[place] II Other Screening for malignant neoplasm of breastRobert [place] II Other Plan of Treatment DateCare ActivityDetailAuthorStart: 57-20-3687Vzuxw BMI ScreeningAdult BMI ScreeningOhioHealth Berger Hospital SystemStart: 70-40-4946Efoeryb ScreeningTobacco ScreeningFormerly [facility] Countytart: 11-73-3569Jwnap BMI ScreeningAdult BMI ScreeningProSuburban Community Hospital & Brentwood [facility] SystemStart: 32-05-9005Qatprql ScreeningTobacco ScreeningOhioHealth Berger Hospital SystemStart: 09-11-9427RJYUB-19 Vaccine ( season)COVID-19 Vaccine ()Bon [facility] CenterAlloCure [facility] HospitalStart: 90-48-0966Vftvmv Wellness Visit (Medicare)Annual Wellness Visit (Medicare)Bon [facility] CenterAllied Payment NetworkSouthside Regional Medical CenterStart: 80-91-4732Nyrfw cultureWyandot Memorial Hospitaltart: 84-38-7520Kkqissgh identified in Urine by CultureUrine Culture [facility] Hospitaltart: 32-48-3419Orvgnvfmt vaccinationInfluenza VaccineOhioHealth Berger Hospital SystemStart: 02-28-2024 End: 37-26-0901Nenpluu encounter oitigflsl73/15/2024 8:30 AM EDT Office Visit [facility] [place] [address] Greer Su MD [address], [address] [address] [facility] W[facility] CareStart: 01-24-2024 End: 29-28-1923Lriijnd encounter ppvjpviqp59/11/2024 9:20 AM EDT Office Visit [facility] [address] [place] [address] Greer Su MD [address], [address] [address] [facility] Wound CareStart: 01-03-2024 End: 75-64-4978CQ.doppler Extremity arteries - bilateral for physiologic artery studyVas art doppler lwr bilat mult lev/PVR Vascular Ultrasound Routine Abnormal ankle brachial index (ELVIN) Critical limb ischemia of left lower extremity with gangrene (CMS-HCC) Venous ulcer of left leg (CMS-HCC) Expected: 01/03/2024, Expires: 01/02/2025Ohio[facility] Hospital SystemComment on above:Expected: 01/03/2024, Expires: 01/02/2025Start: 01-03-2024 End: 94-62-8303KR.doppler Lower extremity vein - bilateralVas venous duplex insufficiency lwr bi Vascular Ultrasound Routine Abnormal ankle brachial index (ELVIN) Critical limb ischemia of left lower extremity with gangrene (CMS-HCC) Venous ulcer of left leg (CMS-HCC) Expected: 01/03/2024, Expires: 01/02/2025 [facility] Work Phone: Comment on above:Expected: 01/03/2024, Expires: 01/02/2025Start: 38-14-1433TAADU-19 Vaccine ( season)COVID-19 Vaccine ( season)[facility] SystemStart: 09-51-1865Vaqojss referral [facility] Work Phone: Start: 99-70-7507Ghgudcymcugq 50+ years Vaccine (2 of 2 - PPSV23)Pneumococcal 50+ years Vaccine (2 of 2 - PPSV23)Bon [facility] HospitalStart: 25-18-2408Vdmu Risk ScreeningFall Risk ScreeningOhioHealth Berger Hospital SystemStart: 22-89-4076Tnsmtwxun for osteoporosisDEXA (modify frequency per FRAX score)Bon [facility] HospitalStart: 23-69-9127Llohvbldjrakfr of varicella zoster vaccineZoster (Shingles) Vaccine (1 of 2)Formerly [facility] Sur[facility] Countytart: 65-78-6516Fgyxpsdb vaccine (1 of 2)Shingles vaccine (1 of 2)[facility]: 80-99-0730ERmQ,Tdap and Td Vaccines (1 - Tdap)DTaP,Tdap and Td Vaccines (1 - Tdap)[facility]ly [facility] Countytart: 96-44-8305WIeW/Tdap/Td vaccine (1 - Tdap)DTaP/Tdap/Td vaccine (1 - Tdap)[facility]: 43-24-2174Uavme BMI Follow Up PlanAdult BMI Follow Up PlanFormerly [facility] Surry Countytart: 61-54-4881Xwfeqwhgv C screeningHepatitis C screenBon Park[facility] Healthart: 94-79-9607Isdxhukajn ScreenDepression ScreenRiverside Regional Medical Center: 09-71-7133Ulkvllxrtx ScreeningDepression ScreeningFormerly [facility] Countytart: 1948Medicare Annual Wellness VisitMedicare Annual Wellness VisitMain Campus Medical CenterComprehensive metabolic 2000 panel - Serum or Plasma [facility] HospitalMG Breast - bilateral ScreeningMercy Health Willard HospitalPatient referralGeorgetown Behavioral Hospital Work Phone: [facility] Immunizations Immunization DateImmunizationNotesCare JuplmcseMqictnqw18-00-4816iraseclsx virus vaccine, unspecified formulationMercy Health Willard Hospital11-14-2023 influenza, high dose seasonal, preservative-freeDahianacigladys Clark Other [facility] Meilishuo Other 09797105-89-5272NQAHN-60 mRNAMalorie (Pfizer)MD Katelynn Clark Work Phone: [facility]02-23-2021COVID-19 mRNAMalorie (Pfizer)MD Katelynn Clark Work Phone: [facility]02-02-2021COVID-19 mRNAMalorie (Pfizer)MD Katelynn Clark Work Phone: [facility]11-09-2020Kenalog -40 mgThomas Felter Other [employer] Other 09-543197-79-7739idvaidpos virus vaccine, split virus (incl. purified surface antigen)Jose Najera Greenpie Other [employer] Other 09-149991-97-3703oetettvlk virus vaccine, unspecified formulationMercy Health Willard Hospital01-27-2020Kenalog -40 mgThomas Felter Other [employer] Other 04-600191-97-6310Cpmkhio -40 mgThomas Felter Other [employer] Other 09007310-85-8748BhaioktXwpxwm Felter Other [employer] Other 08-426545-78-1549Phfvuudpsl InjectionThomas Felter Other [employer] Other 08-032104-44-0814BysubelCeobky Felter Other [employer] Other 08-917425-73-0425DmvznisCditmh Felter Other [employer] Other 08305351-26-0594JruzltuYgdmcg Felter Other [employer] Other 05-769475-24-5474Ivlujgw -40 mgThomas Felter Other [employer] Other 11-436657-71-0792czbxthdgs virus vaccine, split virus (incl. purified surface antigen)Jose Najera KRISTY Other [employer] Other 11-864201-62-4123uydvhkigc virus vaccine, unspecified formulationMercy Health Willard Hospital11-16-2016pneumococcal polysaccharide vaccine, 23 Hubert Najera II Other [facility] Payers DatePayer CategoryPayerPolicy [id number] [id number] 2024 [id number] 2014Private Health InsuranceAARP [id number] 2013Medicare [id number] [id number] 2..[id number] 2..9.140852.8389-06-1948 [id number] 2..1.316946.3.579.2.[id number] 2.0.1.704020.3.57[id number] 2..1.286603.3.57[id number] 2..1.746587.3.57[id number] 2.0.1.759895.3.57[id number] 2.16.840.1.847298.3.57[id number] 2.16.840.1.831111.3.57[id number] 2.840.1.994832.3.579.2.754UnknownAnthem /[id number] 2.16840.1.034627.3.579.2.531 Social History DateTypeDetailFacilityUnknown if ever smokedWinchendon [employer] Other Start: 06-18-2023 End: 40-74-4641Ruf Assigned At [facility] [employer] Other Start: 10-26-2021 End: 21-29-4080Wwhignl smoking status NHISNever smoked tobacco (finding) [facility] CenterStart: 57-62-0439Rlr Assigned At [facility] Hospitaltart: 05-30-2024 End: 48-72-1043WjfKjsnbl (finding)[facility] CenterStart: 12-25-2022 End: 66-37-6081Vcmmtru use and exposureSmokeless tobacco non-userOhioHealth Berger Hospital SystemStart: 06-18-2023 End: 85-44-7667Bqasbwefj beverage intakeCurrent drinker of alcohol (finding) [facility] SystemStart: 06-18-2023 End: 21-90-9583Taohbbvfe beverage intakeProSuburban Community Hospital & Brentwood Hospital SystemStart: 09-27-2022 Within the past 12 months we worried whether our food would run out before we got money to buy more.Never TrueProSuburban Community Hospital & Brentwood Hospital SystemStart: 13-86-3120Lsk assigned at birthNot on [facility] SpringfieldTobacornerstone [facility] smoking status NVIS Tobacco smoking consumption unknownSentara Leigh Hospital Medical Equipment Procedure CodeEquipment CodeEquipment Original TextEquipment IdentifierDates Arthroplasty, knee, total, minimally invasiveOrthopaedic cement, non-medicated ()[id number] FDAStart: 42-20-1941Zhijpkujieiv, knee, total, minimally invasiveUncoated knee femur prosthesis, metallic ()[id number] FDAStart: 14-46-3282Qtohwozrhfyy, knee, total, minimally invasiveTibial insert()[id number] FDAStart: 75-05-7104Gileqjtsumqz, knee, total, minimally invasivePolyethylene patella prosthesis()[id number] FDAStart: 10-24-2021 Arthroplasty, knee, total, minimally invasiveKnee stem ()[id number] FDAStart: 20-18-3963Tivoiicvjnpa, knee, total, minimally invasiveUncoated knee tibia prosthesis, metallic ()[id number] FDAStart: 10-24-2021 Clinical Notes 05-12-2021 to 02-19-2025 Note Date & PjcaOzfjAvfvqkxz39-34-4276 [facility] Reason for [...] drugs Family history her mother due to DC at age 69. Her father had congestive [...] monitor 11/18/2024 - 11/21/2024 Echo 11/19/2024 at [facility] in [place] Lower extremities Doppler study 01/10/2024 PVR waveforms: Right leg: Thigh: Moderate to severe peripheral arterial disease Above knee: Mild to moderate peripheral arterial disease Below knee: Mild to moderate peripheral arterial disease Right ankle: Moderate to severe peripheral arterial disease Left leg: Thigh: Moderate to severe peripheral arterial disease Above knee: Mild to moderate peripheral arterial disease Below knee: Mi (more content not included)...[facility] Evaluation note* Diagnosis Onset Date [...] 1:27pmScreening mammogram for breast canceracuteAugust 2024 1:27pm [facility] Work Phone: 1(365) 446-278305-15-2025 NoteAdmission Information Patient is a 74-year-old female [...] dressing. [facility] by medicine Anticipate DC to ECF when arranged and medically stable Outpatient follow-up in 2 weeks Orders: Discharge Patient Patient Discharge Condition stable Discharge Disposition ECF Electronically signed by Bella Yarbrough PA-C 11/27/24 00:55 EDT Patient care discussed with Bella Yarbrough PA-C. Agree with assessment and plan. Electronically signed by Luis Alberto Perez MD 11/27/24 13:[facility] Chief Complaint Left knee pain Reason for Consultation: Medical manager case management Provider: Dr. Perez Date of Consult: [...] reviewed other provider notes. Anticipated Discharge Location: Alf Facility Patient follow-up with PCP, cardiology, orthopedics, [...] mg oral tablet, 40 (more content not included)...[facility]05-13-2025 NoteChief Complaint Left knee pain Reason [...] ECG 11/05/24 - Saw Dr. Naz Barney, [employer] application integration engineer, in [place] > He noted she was completed asymptomatic > Ventricular rates were controlled due to preexisting treatment with metoprolol tartrate 100 mgBID and verapamil SR 180 mg daily - TTE completed preoperatively at [facility] on 11/18 --> normal LVEF with mild [...] diastolic function, mild LAE, mild MR, mild NV ([facility]) Physical Exam Vitals & Measurements T: 37 [...] rehab - Follow up with Dr. Barney, [employer] application integration engineer, after discharge 2. Hypertension - Continue [...] 180 mg= 1 tabs, (more content not included)...[facility]05-13-2025 NoteChief Complaint Left knee pain Reason for Consultation: Medical manager case management Provider: Dr. Perez Date of Consult: [...] acetaminophen, 1000 mg, O (more content not included)...[facility]05-12-2025 NoteChief Complaint Left knee pain Reason for Consultation: Medical manager case management Provider: Dr. Perez Date of Consult: [...] 75 mg oral c (more content not included)...[facility]05-11-2025 NoteChief Complaint Left knee pain Reason for Consultation: Medical manager case management Provider: Dr. Perez Date of Consult: [...] tabs, Oral, Daily, AM (more content not included)...[facility]05-10-2025 NoteChief Complaint Left knee pain Reason for Consultation: Medical manager case management Provider: Dr. Perez Date of Consult: [...] mg/12 hours oral tab (more content not included)...[facility]05-09-2025 NoteIndication for Surgery Patient is a [...] MUJICA, Luis Alberto Vegas (Surgeon - Primary) Copyright Expert Bella Yarbrough PA-C (Teletype Clerk) Anesthesia General Chance MUJICA, Salas De Jesus (Provider) Tressa APPRENTICE COSMETOLOGIST-CASER UP, Moises Herrmann (Provider) Moy POLLACKN-CASER UP, Mayi Ferguson (Provider) Estimated Blood Loss 500.0 [...] confirming correct surgical site, patient, and procedure. [place] exsanguination was used and tourniquet was inflated [...] size 9. The fem (more content not included)...[facility]05-06-2025 History of Present illness Narrative* Korina Ham - 11/18/2024 10:30 AM EDT Explained policies and procedure of an echocardiogram/Doppler study. documented in this encounterBon [facility]05-02-2025 [facility] Note Reason [...] drugs Family history her mother due to DC at age 69. Her father had congestive [...] peripheral arterial disease Be (more content not included)...[facility]04-21-2025 Evaluation note* Diagnosis Onset Date Resolution Status Admit Date Essential (primary) hypertension acuteApril 2024 1:01pmPrimary osteoarthritis of left kneeacuteApril 2024 1:01pmRight femoral vein DVTacuteApril 2024 1:01pm [facility] Work Phone: 1(161) 220-967008-15-2024 Evaluation + Plan note* Assessment & Plan Note - Greer Su MD - 02/28/2024 9:01 AM EDTAssociated Problem(s): Venous ulcer of left leg (CMS-HCC) Wound pretty much healed. Discussed with her risk factors modification and follow-up as needed. [facility]08-15-2024 Evaluation + Plan note* Assessment & Plan Note - Greer Su MD - 02/28/2024 9:01 AM EDTAssociated Problem(s): Critical limb ischemia of left lower extremity with gangrene (CMS-HCC) Wound pretty much healed. Discussed with her risk factors modification and follow-up as needed. [facility]08-15-2024 Miscellaneous Notes* Assessment & Plan Note - Greer Su MD - 02/28/2024 9:01 AM EDTAssociated Problem(s): Venous ulcer of left leg (CMS-HCC) Wound pretty much healed. Discussed with her risk factors modification and follow-up as needed. * Assessment & Plan Note - Greer Su MD - 02/28/2024 9:01 AM EDT Associated Problem(s): Critical limb ischemia of left lower extremity with gangrene ([facility]-HCC) Wound pretty much healed. Discussed with her risk factors modification and follow-up as needed. documented in this encounterMain Campus Medical Center08-15-2024 History of Present illness Narrative* Greer Su [...] reflux that is relatively mild with a communications administrator in the left lower extremity near her [...] Past Medical History: Diagnosis Date Clotting disorder ([facility]) Deep vein thrombosis ([facility]) History of arterial disease of lower extremity [...] your understanding. documented in this encounterProMedica Health [id number] Evaluation + Plan note* Assessment & Plan Note - Greer Su MD - 01/24/2024 9:20 AM EDT Associated Problem(s): Venous ulcer of left leg (CMS-HCC) We will reevaluate in a month. If the ulcer healed or healing well we will hold off on any intervention otherwise we will do ultrasound-guided injection sclerotherapy and ablation of the GSV. [facility]07-11-2024 History of Present illness Narrative* Greer Su [...] GSV reflux that isrelatively mild with a communications administrator in the left lower extremity near her [...] Past Medical History: Diagnosis Date Clotting disorder ([facility]-HCC) Deep vein thrombosis ([facility]-HCC) History of arterial disease of lower [...] you for your understanding. documented in this encounterMain Campus Medical Center07-11-2024 Miscellaneous Notes* Assessment & Plan Note - Greer Su MD - 01/24/2024 9:20 AM EDT Associated Problem(s): Venous ulcer of left leg (CMS-HCC) We will reevaluate in a month. If the ulcer healed or healing well we will hold off on any intervention otherwise we will do ultrasound-guided injection sclerotherapy and ablation of the GSV. documented in this encounterMain Campus Medical Center06-20-2024 Evaluation + Plan note* Assessment & Plan Note - Greer Su MD - 01/03/2024 10:48 AM EDT Associated Problem(s): Critical limb ischemia of left lower extremity with gangrene (CMS-HCC) PVR with toe pressure [facility]06-20-2024 Miscellaneous Notes* Assessment & Plan Note - Greer Su MD - 01/03/2024 10:48 AM EDTAssociated Problem(s): Critical limb ischemia of left lower extremity with gangrene (CMS-HCC) PVR with toe pressure * Assessment & Plan Note - Greer Su MD - 01/03/2024 10:47 AM EDT Associated Problem(s): Venous ulcer of left leg (CMS-HCC) Venous reflux ultrasound and compression therapy documented in this encounterMain Campus Medical Center06-20-2024 Evaluation + Plan note* Assessment & Plan Note - Greer Su MD - 01/03/2024 10:47 AM EDT Associated Problem(s): Venous ulcer of left leg (CMS-HCC) Venous reflux ultrasound and compression therapy [facility]06-20-2024 History of Present illness Narrative* Greer Su [...] Past Medical History: Diagnosis Date Clotting disorder ([facility]-HCC) Deep vein thrombosis ([facility]-HCC) History of arterial disease of lower [...] Problem List Venous ulcer of left leg ([facility]-HCC) Current Assessment & Plan Venous reflux [...] (ELVIN) - [facility] - [place], [place] - Vas venous duplex insufficiency lwr [...] you for your understanding. documented in this encounterCleveland Clinic South Pointe HospitalThe Roberts Group Holland HospitalPeppfc09-69-9891 Evaluation note* Encounter Date Diagnosis Assessment Notes [...] sacroiliac, I will send referral to Dr. Mcacllum. She should continue follow-up with her primary care. Iwill see her in 6 months for follow-up. Aug,eripheral vascular insufficiency (ICD-10 - I73.9) Aug,eripheral polyneuropathy (ICD-10 - G62.9) Aug,Lumbar stenosis without neurogenic claudication (ICD-10 - M48.061) Aug,Lower extremity edema (ICD-10 - R60.0) [employer] Other 02-01-2024 Evaluation note* Encounter Date Diagnosis Assessment Notes Treatment Notes Treatment Clinical Notes Aug, Leg edema, right (ICD-10 - R60.0 ) Check US today, discussed other possibilities but r/o DVT first. [employer] Other 12-19-2023 Evaluation note* Encounter Date Diagnosis Assessment Notes Treatment Notes Treatment Clinical Notes Jun, Lumbar pain (ICD-10 - M54.50) [employer] Other 11-27-2023 Evaluation note* Encounter Date Diagnosis Assessment Notes Treatment Notes Treatment Clinical Notes May, DDD (degenerative disc disease), lumbar (ICD-10 - M51.36) [employer] Other 11-14-2023 Evaluation note* Encounter Date Diagnosis Assessment Notes Treatment Notes Treatment Clinical Notes May, Peripheral polyneuropathy (ICD-1 0 - G62.9) Requests labs to r/o metabolic causes. May,Lumbar pain (ICD-10 - M54.50)Chronic lumbar pain. Agrees to start w xray. May,aronychia, toe, left (ICD-10 - L03.032)Pt requests antibiotic at end of visit. Keep foot clean and dry. [employer] Other 08-31-2023 Evaluation note* Encounter Date Diagnosis [...] wedding planned the end of August 2023. [employer] Other 07-27-2023 Evaluation note* Encounter Date Diagnosis [...] it is not something that I prescribed. [employer] Other 07-06-2023 Evaluation note* Encounter Date Diagnosis Assessment Notes Treatment Notes Treatment Clinical Notes Jan, Easy bruisability (ICD-10 - R23. 3) Pt will get labs today. Discussed possible link w the frequent NSAIDs Jan,Essential (primary) hypertension (ICD-10 - I10)Due for labs. Possible elevated glucose - nonfasting, had steroid pills and injections due to foot issues. She is seeing podiatry for plantar fasciitis. [employer] Other 07-06-2023 Evaluation note* Encounter Date Diagnosis [...] symptoms. Any developing patterns. Stay well hydrated. [employer] Other 05-31-2023 NotePROCEDURE: XR FOOT LT MIN [...] by: TIM TORREZ Date: 2022-12-13 08:39[facility]05-30-2023 Evaluation note* Encounter Date Diagnosis Assessment Notes Treatment Notes Treatment Clinical Notes November, Left foot pain (ICD-10 - M79.672 ) Discussed primary concern of stress fracture. Pt agrees to xray. Reviewed ortho notes. She is to followup there prn. [employer] Other 2023 Evaluation note* Encounter Date Diagnosis Assessment Notes Treatment Notes Treatment Clinical Notes Oct, History of total right knee repl acement (ICD-10 - Z96.651) Oct,rimary osteoarthritis of both knees (ICD-10 - M17.0) Oct,[facility] [place] Happy with surgical result Follow [...] as needed basis for the left knee. [employer] Other 09-29-2022 Evaluation note* Encounter Date Diagnosis Assessment Notes Treatment Notes Treatment Clinical Notes Mar, Primary osteoarthritis of both k nees (ICD-10 - M17.0) [employer] Other 08-22-2022 Evaluation note* Encounter Date Diagnosis [...] Feb,therAbove note written by Richar Kruger LPN, [employer] [place]. Edited and approved by Dr. Wayne Mccallum MD. [employer] Other 07-06-2022 Evaluation note* Encounter Date Diagnosis Assessment Notes Treatment Notes Treatment Clinical Notes Jan, Primary osteoarthritis of both k nees (ICD-10 - M17.0) Jan,ftercare following joint replacement surgery (ICD-10 - Z47.1) Jan,History of total right knee replacement (ICD-10 - Z96.651) Jan,[facility] [place] Doing well Discussed post-op dental prophylaxis. Shared decision made to continue prophylactic antibiotics indefinitely. Follow-up at 1 year post-op for repeat examination and 2 view x-rays of the right knee. Patient instructed to call with any questions or concerns. [employer] Other 05-25-2022 Evaluation note* Encounter Date Diagnosis Assessment Notes Treatment Notes Treatment Clinical Notes November, Primary osteoarthritis of both k nees (ICD-10 - M17.0) November,ftercare following joint replacement surgery (ICD-10 - Z47.1) November,History of total right knee replacement (ICD-10 - Z96.651) November,[facility] [place] Doing well Patient may continue activities as tolerated. Continue PT as recommended. Continue taking baqf-klk-fwndcxx anti-inflammatories as needed for assistance with swelling and pain associated with the operative extremity. Follow-up in 6 weeks for repeat examination and long standing x-rays. [employer] Other 05-04-2022 Evaluation note* Encounter Date Diagnosis [...] for 3 views of the right knee. [employer] Other 04-01-2022 Evaluation note* Encounter Date Diagnosis [...] plans. Prolonged services time spent: 37 minutes [employer] Other 04-01-2022 History general Narrative - Reported* Type Description Date Medical History hypertension Surgical Historybilateral THASurgical Historyabdominal surgerySurgical HistoryRT TKR10/2021Hospitalization Historysee above [employer] Other 04-01-2022 History general Narrative - Reported* Type Description Date Medical History hypertension Surgical Historybilateral THASurgical Historyabdominal surgerySurgical HistoryRT TKRurgical HistoryCOLONOSCOPYHospitalization Historysee above [employer] Other 04-01-2022 History general Narrative - Reported* Type Description Date Medical History hypertension Medical HistoryFrozen shoulderMedical HistoryLumbar painSurgical History bilateral THASurgical Historyabdominal surgerySurgical HistoryRT TKR10/2021 Surgical HistoryCOLONOSCOPYHospitalization Historysee above [employer] Other 03-24-2022 Evaluation note* Encounter Date Diagnosis [...] Joints Meeting Checklist - Pharmacy: [facility] - Approach/Technique: ZULLY - [...] elected to proceed with the above surgery. [employer] Other 03-01-2022 Evaluation note* Encounter Date Diagnosis [...] Sep,therAbove note written by Richar Kruger LPN, [employer]. Edited and approved by Dr. Wayne Mccallum MD. [employer] Other 03-01-2022 Evaluation note* Encounter Date Diagnosis Assessment Notes Treatment Notes Treatment Clinical Notes Sep, Primary osteoarthritis of both k nees (ICD-10 - M17.0) [employer] Other 01-25-2022 Evaluation note* Encounter Date Diagnosis Assessment Notes Treatment Notes Treatment Clinical Notes Jul, Primary osteoarthritis of both k nees (ICD-10 - M17.0) [employer] Other 01-13-2022 Evaluation note* Encounter Date Diagnosis [...] Jul,therAbove note written by Richar Kruger LPN, [employer]. Edited and approved by Dr. Wayne Mccallum MD. [employer] Other 10-28-2021 Evaluation note* Encounter Date Diagnosis [...] Apr,OtherAbove note written by Nissa Murillo CMA, [employer]. Edited and approved by Dr. Wayne Mccallum MD. [facility] [employer] Other Evaluation noteNo assessment information available [facility] Work Phone: Evaluation noteNo InformationNortSCI-[facility] [employer] Other Evaluation note* Diagnosis Onset Date Resolution Status Right femoral vein DVT acute [facility] Work Phone: Evaluation note* Diagnosis Onset Date Resolution Status Essential (primary) hypertension acuteKnee arthropathyacuteRight femoral vein DVTacutePAD (peripheral artery disease)acutePrimary osteoarthritis of left kneeacute [facility] Work Phone: Evaluation note* Diagnosis Onset Date Resolution Status Essential (primary) hypertension acuteKnee arthropathyacuteRight femoral vein DVTacutePAD (peripheral artery disease)acutePrimary osteoarthritis of left kneeacutePAD (peripheral artery disease)acuteVenous ulcer of left legacute [facility] Work Phone: Evaluation note* Diagnosis Onset Date Resolution Status Primary osteoarthritis of left knee acutePAD (peripheral artery disease)acuteVenous ulcer of left legacutePrimary osteoarthritis of left kneeacute [facility] Work Phone: Evaluation note* Diagnosis Critical limb ischemia of left lower extremity with gangrene ([facility]-HCC)- Primary Abnormal ankle brachial index (ELVIN) Venous ulcer of left leg ([facility]-H[facility]) documented [facility]* Diagnosis Venous ulcer of left leg (CMS-HCC)- Primary [facility]* Diagnosis Venous ulcer of left leg (CMS-HCC)- Primary Critical limb ischemia of left lower extremity with gangrene (CMS-HCC) documented [facility]* Diagnosis Pre-operative clearance Preoperative examination, unspecified Leg edema Edema Paroxysmal atrial fibrillation (HCC) Atrial fibrillation documented in this encounter [facility] [facility] Narrative - Reported* Type Description Date Medical History hypertension Surgical Historybilateral THASurgical Historyabdominal surgery [employer] Other Hospital Discharge instructionsAmbulatory Orders* Referral to Wound Care Time Frame: 10/15/23, Location: None [facility] Work Phone: InstructionsNot on filedocumented in this encounter [facility] SystemInstructionsNot on filedocumented in this encounter [facility] SystemInstructionsNot on filedocumented in this encounter [facility] SystemReason for referral (narrative)No reason for referral information available[facility] Work Phone: Reason for visit Narrative* Imaging (Routine) - Pending ReviewSpecialtyDiagnoses / ProceduresReferred By ContactReferred To ContactCardiology Diagnoses Pre-operative clearance Leg edema Paroxysmal atrial fibrillation (HCC) Procedures Echo (TTE) complete (PRN contrast/bubble/strain/3D) NV ECHO TTHRC R-T 2D W/WOM-MODE COMPL SPEC&COLR D NV TTE W OR WO FOL WCON,DOPPLER Vickey Mata MD [address] [facility] [address] [place] [address] Phone: tel: fax: Referral IDStatusReasonStart DateExpiration DateVisits RequestedVisits [id number] Review/ [facility] INFOGR[employer]QS Family History Relationship Condition Age at Onset [...] lev/PVR Greer Su MD [address], [place] [address] Referral IDStatusReasonStart DateExpiration DateVisits RequestedVisits [id number] /[id number] / ProceduresReferred By ContactReferred To Contact Diagnoses Abnormal ankle brachial index (ELVIN) Critical limb ischemia of left lower extremity with gangrene ([facility]-HCC) Venous ulcer of left leg ([facility]) Procedures Vas venous duplex insufficiency lwr Greer Bravo MD [address], [address] [address] Referral IDStatusReasonStart DateExpiration DateVisits RequestedVisits [id number] Review/ Reason evaluate and t reat Diagnosis 1 Lumbar pain (M54.50) Referral Organization [facility] urosurger Referring Provider First Name Ny Referring Provider Last Name Jin Referring Provider Specialty Nurse Pract itioner Referred Organization [facility] Pain Managemen t Bone [place] Referred Provider Wayne Mccallum Referred Address [address] , [place],[address] Referred Provider Specialty Pain Medicin e Referral Priority Routine General Notes Eryn Reynoso 02:02:11 PM >received today, patient previously seen by Dr Mccallum (last visit Feb 2022) and is still considered established. sending p2p at this time for scheduling. Reason evaluate and t reat for peripheral vascular disease Diagnosis 1 Peripheral vascular disease (I73.9) Referral Organization [facility] Referring Provider First Name Ny Referring Provider Last Name Annabel Referring Provider Specialty Nurse Pract itioner Referred Organization [facility] Vascular Surge ry Referred Provider Willy Yancey Referred Address [address] [place] [address] [address],[place], [place],[address] Referred Provider Specialty Vascular Samantha piotr Referral Priority Routine General Notes Eryn Reynoso 02:08:33 PM >received today, p2p sent for scheduling Reason *Waiting for appt chronic lumbar - recent MRI Diagnosis 1 Lumbar pain (M54.50) Referral Organization [facility] Brando díaz Referring Provider First Name Katelynn Referring Provider Last Name Amber Referring Provider Specialty Family Medi cine Referred Organization [facility] Referred Provider Jose Clark Referred Address [address] [place] [address] [address] ,[place], [place],[address] Referred Provider Specialty Neurological Surgery Referral Priority [...] for Abnormal ankle brachial index (ELVIN) [facility] Disk pushedto PACSEdemaWound not healing , Wound clinic would like you to look deeper into the PADSpecialtyDiagnoses / ProceduresReferred By ContactReferred To ContactVascular Surgery Diagnoses Abnormal ankle brachial index (ELVIN) Katelynn Clark MD [facility] [place] [address] Greer Su MD [address] [place] [address] Referral IDStatusReasonStart DateExpiration DateVisits RequestedVisits [id number] Review Specialty Services Required /[id number] Limb IschemiaReasonComments1 month follow up with no [...] 13, 2023 End: September 13, 2023Ny Jin CLAY THROWER-CReferring ProviderActiveStart: September 13, 2023 End: September 13, [...] 2023Team MemberRelationshipSpecialtyStart [place] [address] [place] [address] [facility]11/29/23Team MemberRelationshipSpecialtyStart [place] [address] [place] [address] PCP - GeneralFamily Medicine11/29/23Team MemberRelationshipSpecialtyStart DateEnd Date Katelynn Clark MD [facility] [place] [address] PCP - GeneralFamily Medicine11/29/23 Team Status: Inactive [...] and content) DATE CREATED AUTHOR 12/22/2022 [facility] DATE CREATED AUTHOR AUTHOR'S ORGANIZ ATION 06/20/2023 [facility] DATE CREATED AUTHOR AUTHOR'S ORGANIZ ATION 11/21/2024 [facility] DATE CREATED AUTHOR AUTHOR'S ORGANIZ ATION 11/30/2024 [facility] DATE CREATED AUTHOR AUTHOR'S ORGANIZ ATION 12/10/2024 [facility] DATE CREATED AUTHOR AUTHOR'S ORGANIZ ATION 12/11/2024 [facility] DATE CREATED AUTHOR AUTHOR'S ORGANIZ ATION 02/24/2025 [facility] FOR RECORDS PERTAINING TO PATIENTS WHO [...] BE BASED ON THE PRIMARY CLINICAL RECORDS. [facility] [email or web address] [facility]. provides no warranty or guarantee of the accuracy or completeness of information in this document.
--- NOTE | 2025-06-25 11:20 | PM.CN ---
Consult Note: HPI Data of Consult Patient: known to practice within the last 3 years Consult date: 06/25/25 Requesting Physician: Amena Gutiérrez NP Primary Care Provider: Vashti Engle MD Consult Narrative Reason for consult: low back pain Narrative: Kami Fink a pleasant 75 year old female presents for evaluation and management of chronic moderate to severe low back pain secondary to lumbar spondylosis unresponsive to > 6 weeks of PT/HEP, heat, ice, tylenol, NSAIDs. pt denies fall/injury in the last 6 months. has been recovering from left total knee replacement 12/07 and doing well overall. pt notes low back pain 0/10 increasing to 8/10 aching with standing, walking, twisting, pushing, pulling, lifting, stairs, bending, activity. since last visist on 05/25/25 she underwent repeat bilateral L4-5 L5-S1 facet RFA with 0% improvement. cc:: CC: Amena Gutiérrez NP PFSH PFSH Medical History DVT (deep venous thrombosis) ?I82.409 - Acute embolism and thrombosis of unspecified deep veins of unspecified lower extremity (ICD-10) Hypertension ?I10 - Essential (primary) hypertension (ICD-10) Hyperlipidemia ?E78.5 - Hyperlipidemia, unspecified (ICD-10) Lumbar spondylosis ?M47.816 - Spondylosis without myelopathy or radiculopathy, lumbar region (ICD-10) Osteoarthritis of left knee ?M17.12 - Unilateral primary osteoarthritis, left knee (ICD-10) Low back pain ?M54.50 - Low back pain, unspecified (ICD-10) Osteoarthritis ?M19.90 - Unspecified osteoarthritis, unspecified site (ICD-10) PAD (peripheral artery disease) ?I73.9 - Peripheral vascular disease, unspecified (ICD-10) Hiatal hernia ?K44.9 - Diaphragmatic hernia without obstruction or gangrene (ICD-10) Heartburn ?R12 - Heartburn (ICD-10) Surgical History H/O exploratory laparotomy ?Z98.890 - Other specified postprocedural states (ICD-10) History of knee replacement ?Z96.659 - Presence of unspecified artificial knee joint (ICD-10) History of hip replacement ?Z96.649 - Presence of unspecified artificial hip joint (ICD-10) Family History Father Family history of CHF (congestive heart failure) Mother Family history of myocardial infarction Sister Family history of cancer Family history of hypertension Family history of stroke Social History Within the past year, how often did you have a drink containing alcohol: monthly or less Within the past year, how many standard drinks containing alcohol did you have on a typical day: 1 or 2 Within the past year, how often did you have six or more drinks on one occasion: never Total score: 0 Score interpretation: A score less than 3 is consistent with normal alcohol consumption. 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 Highest level of school completed/degree received: Associate degree: occupational, technical, vocational program Are you now , , , , never or living with a partner: In a typical week, how many times do you talk on the telephone with family, friends, or neighbors: 3 or more times per week How often do you get together with friends or relatives: once per week How often do you attend mu-ism or samaritan services: never Little interest or pleasure in doing things: not at all Feeling down, depressed, or hopeless: not at all Feel stressed/tense/nervous/anxious/difficulty sleeping: not at all Do you think of yourself as: straight/heterosexual Gender Identity: female Meds Home Medications and Allergies Home Medications ?Medication ?Instructions ?Recorded ?Confirmed ?Type apixaban 5 mg tablet (Eliquis) 5 mg PO BID 09/24/23 05/25/25 History atorvastatin 40 mg tablet 40 mg PO DAILY 09/24/23 05/25/25 History diclofenac sodium 75 mg 75 mg PO Q12H PRN pain 09/24/23 05/25/25 History tablet,delayed release metoprolol succinate 100 mg 100 mg PO DAILY 09/24/23 05/25/25 History tablet,extended release 24 hr verapamil 180 mg tablet,extended 180 mg PO DAILY 09/24/23 05/25/25 History release acetaminophen 500 mg tablet 500 mg PO DAILY PRN pain 04/30/25 05/25/25 History (Tylenol Extra Strength) hyoscyamine sulfate 0.125 mg tablet 0.125 mg PO DAILY PRN dyspepsia 04/30/25 05/25/25 History diazepam 10 mg tablet 10 mg PO TID PRN sedation 05/25/25 05/25/25 History Allergies Allergy/AdvReac Type Severity Reaction Status Date / Time No Known Drug Allergies Allergy Verified 05/25/25 08:38 Exam Constitutional Documenting provider has reviewed patient's vital signs: yes Common normals: no apparent distress, oriented x3 and alert General appearance: cooperative HENMT Common normals: normocephalic, hearing grossly normal bilaterally and moist oral mucous membranes Head and scalp: normocephalic Eye Common normals: PERRL Pupil: PERRL Neck & C-Spine Common normals: full ROM General: normal visual inspection Chest Common normals: inspection of chest normal Respiratory Common normals: normal respiratory effort, no retractions and no use of accessory muscles Back & Pelvis Lumbar spine/lower back: ROM limited; no pain with ROM and no lumbar spinal tenderness Other: negative facet loading bilaterally strength 5/5 in BLE sensation intact BLE notes increased low back pain with standing/walking improves with sitting and forward flexion Neuro Common normals: oriented x3 Sensorium/orientation: alert Psych Common normals: mental status grossly normal, thought process normal, cooperative, affect normal, speech normal and activity/motor behavior normal Speech: normal speech Thought process: normal thought process Results Additional Findings Additional findings: If on a controlled substance or opioids, I have checked an [place]AR[place] report on this patient and there are no aberrancies noted in the prescribing history.??If on a controlled substance or opioid a drug screen was completed and reviewed within the last year, and if there has not been a drug screen completed we ordered one today to monitor higher risk, state monitored pain medication use. As part of providing excellent, safe, comprehensive care, the following was completed at our patient's visit: 1. A medication reconciliation and review to ensure accurate knowledge of current/active medications, including asking our patients to inform us about any mbxe-hre-zzvumqn medications or herbal remedies/nutritional supplements/alternative remedies. 2. A review to specifically ensure our patients have had annual screening for screening for depression, screening for tobacco use, and screening for unhealthy alcohol use. For concerning screenings had a discussion with the patient, provided patient education, and recommended follow-up with primary care provider when appropriate. If patient noted with a risk of falling, they received education on strength, gait, and balance training to prevent future risk of falling. Portions of this note may have been carried over from the previous visit and updated as appropriate. Please note this office utilizes paper charting in addition to the electronic medical record. A list of current medications, vitals, and PMH is available there as the clinical staff outside of myself do not have access to [employer] charting during the clinic day operations. As part of providing quality comprehensive care the current medications, vitals, and PMH were reviewed in the paper chart. Assessment and Plan Assessment and Plan (1) Lumbar stenosis with neurogenic claudication: (2) Lumbar spondylosis: Plan The patient has had over 3 months of moderate to severe low back pain with functional impairment and inadequate response to conservative care including NSAIDS (unless there are contraindication such as concurrent blood thinners), multiple oral or topical pain medications, and home exercise program/physical therapy.? Patient has completed >6 weeks of guided home exercise program and/or formal physical therapy program without relief of their symptoms.? I have reviewed the imaging of the lumbar spine and no red flags were identified.? The Oswestry Disability Index was completed, and the patient scored a 29%.? update lumbar MRI without contrast to assess lumbar stenosis with NC and chronic moderate to severe low back pain pt interested in additional HEP from PT, will refer for evaluation f/u once mri complete ?
== END 2025-06-25 10:55 | disposition home or self-care (01) ==
LOC: PM 10:55
PROVIDERS: PCP Family Medicine; Visit Provider Nurse Practitioner
DX: M48.062 Spinal stenosis, lumbar region with neurogenic claudication (principal); M47.816 Spondylosis without myelopathy or radiculopathy, lumbar region
CPT/HCPCS: G0463

== ENCOUNTER 2025-07-03 09:39 | Outpatient (OUT) | payer MEDICARE, SELFPAY ==
--- OUTSIDE RECORDS SUMMARY | 2025-06-01 05:10 | XMS_ITS ---
Author Organization [facility] Address [address] [place] [address] Care Team Providers Care Doughnut Glazier Name Role Phone Vashti Engle M.D. Primary Care Provider Unavail Austin Gonzalez Unavailable [phone] REASON FOR VISIT SP LEFT TOTAL KNEE 11/21/24, Status post left total knee arthroplasty 11/21/2024 Medications Medication SIG (Take, Route, Frequency, Duration) Notes Start Date End Date Status Lasix ActivePepcidActivepotassium chlorideActivetraMADolActiveverapamilActiveEliquis ActiveEliquis 5 mg; Duration: 30 DaysActiveImodiumActiveatorvastatinActive diclofenacActiveMetoprolol Succinate ER 100 mgTAKE 1 TABLET BY MOUTH ONCE DAILY; Duration: 90 DaysActiveMetoprolol Succinate ER 100 mg; Duration: 90 DaysActive ciprofloxacin ophthalmic 0.3%; Duration: 7 DaysActiveciprofloxacin ophthalmic 0.3%PUT 1 TO 2 DROPS IN AFFECTED EYE(S) EVERY 2 HRS. UP TO 8X'S PER DAY. FOR 2 DAYS; THEN 4 X'S DAILY FOR 5 DAYS IN BOTH EYES; Duration: 7 DaysActive Encounters Encounter Location Date Provider Diagnosis [facility] [address] [place] [address] 06/01/2025 Austin Perez Status post left kne e replacement Z96.652 and Aftercare following joint replacement surgery Z47.1 Assessments Encounter Date Diagnosis (ICD Code) Assessment Notes Treatment Notes Treatment Clinical Notes Section Notes 06/01/2025 Status post left knee replacemen t (ICD-10 - Z96.652) Status post left total knee arthroplasty ftercare following joint replacement surgery (ICD-10 - Z47.1)Status post left total knee arthroplasty OtherDiscussed treatment options with patient. Overall patient is doing well following her total knee arthroplasty. Continue ice and anti-inflammatory as needed for pain. Activity modification as needed fo r pain. Continue home exercises. We did discuss the need for prophylactic antibiotics with dental procedures. All questions and concerns were addressed. Patient was in agreement with the treatment plan. Will plan to see patient back in 6 months for repeat clinical and radiographic evaluation.Status post left total knee arthroplasty 11/21/2024 Plan Of Treatment Treatment Notes Assessment Notes Other Discussed treatment options with patient. Overall patient is doing well following her total knee arthroplasty. Continue ice and anti-inflammatory as needed for pain. Activity modification as needed for pain. Continue home exercises. We did discuss the need for prophylactic antibiotics with dental procedures. All questions and concerns were addressed. Patient was in agreement with the treatment plan. Will plan to see patient back in 6 months for repeat clinical and radiographic evaluation. Pending Test Test Name Order Date RSS: KNEE POST OP LEFT 3V AP,LAT, PATELL A [id number] 06/01/2025 Next Appt Details Follow Up: 6 Weeks, Reason: Provider Name:Austin Perez, 11/30/2025 10:10:00 AM, [address] [facility] , [address], [address], Progress Notes * LINDA BARBOSADOB: [birth year] (75 yo F)Acc No.[id number]:06/01/2025 Patient:?LINDA BARBOSA :?Austin Ascencion Chris, MDDOB:1950???Age:75 Y ???Sex:FemaleDate:06/01/2025Phone:[phone]:[address] [facility], [id number]:Vashti Engle M.D. Subjective: * Chief Complaints: * 1 . SP LEFT TOTAL KNEE 11/21/24. 2. Status post left total knee arthroplasty 11/21/2024. * HPI: ???HPI:? Patient is a 75-year-old female who presents for follow-up evaluation 6- month status post left total knee arthroplasty. Overall patient is doing very well. She has no pain in the knee. She does note some crunching when she first stands up over the anterior knee.The crunching is not painful. She denies feelings of instability. Denies numbness or tingling in her toes. Denies redness or drainage from her incision. She is ambulating with a cane primarily for her balance. She continues to do home exercises. * Medical History: * Medications: T aking atorvastatin , Taking diclofenac , Taking Eliquis , Taking Imodium , Taking Lasix , Taking Pepcid , Taking potassium chloride , Taking traMADol , Taking verapamil , Taking Metoprolol Succinate ER 100 mg tablet, extended release TAKE 1 TABLET BY MOUTH ONCE DAILY , Taking Metoprolol Succinate ER 100 mg tablet, extended release , Taking ciprofloxacin ophthalmic 0.3% solution , Taking ciprofloxacin ophthalmic 0.3% solution PUT 1 TO 2 DROPS IN AFFECTED EYE(S) EVERY 2 HRS. UP TO 8X'S PER DAY. FOR 2 DAYS; THEN 4 X'S DAILY FOR 5 DAYS IN BOTH EYES , Taking Eliquis 5 mg tablet Objective: * Vitals: * Examination: ???General examination: ???General exam: Patient is a well-appearing female resting comfortably no acute distress. Patient is awake alert and orient x 3. Normal mood and affect. Ambulates with normal gait. ???X-ray Imaging Studies: ???3 views left knee obtained and reviewed. Radiographs demonstrate well aligned well-fixed revision left total knee arthroplasty. No evidence of hardware failure or loosening. No acute fracture or dislocation. Patella tracking centrally. ???Left Lower Extremity: ???Well-healed incision with no erythema or drainage. Mild edema. No effusion. No tenderness to palpation medial joint line, lateral joint line, or peripatellar. Reproducible crepitus with sit to stand. Knee range of motion 0 to 120 degrees. Knee stable varus valgus stress. Stable anterior posterior drawer. Patella tracking centrally. 5 out of 5 quad strength. Motor intact TA, GSC,EHL, FHL. Sensation intact to light touch SPN, DPN, sural, saphenous, tibial nerve distribution. 2+DP pulse. Toes well-perfused. No calf pain. Negative Homans. ??? Assessment: * Assessment: 1.?Aftercare following joint replacement surgery - Z47.1 (Primary)???2.?Status post left knee replacement - Z96.652???Status post left total knee arthroplasty 11/21/2024 Plan: * Treatment: ?Imaging: RSS: KNEE POST OP LEFT 3V AP,LAT, PATELLA [id number] Notes: Discussed treatment options with patient. Overall patient is doing well following her total knee arthroplasty. Continue ice and anti-inflammatory as needed for pain. Activity modification as needed for pain. Continue home exercises. We did discuss the need for prophylactic antibiotics with dental procedures. All questions and concerns were addressed. Patient was in agreement with the treatment plan. Will plan to see patient back in 6 months for repeat clinical and radiographic evaluation.?? * Procedure Codes: 7 3562 X-ray Knee, 3 view, Modifiers: LT * Preventive Medicine: ??Screenings:?Fall Risk Screening?Fall Risk Assessment:?No falls in the past year.? * Follow Up: 6 Weeks Forms: * Images: * Electronic signature of Austin Perez MD on 07/03/2025 at 09:44 AM ESTSign off status: Pending * Provider: Jeremías Perez MD Date: 1 08/01/2024 Generated for Printing/Faxing/eTransmitting on:?07/03/2025 09:44 AM EST History and Physical Notes * HPI (History of Present Illness) CategorySub-CategoryDetailNotesCategory NotesHPIPatient is a 75-year-old female who presents for follow-up evaluation 6-month status post left total knee arthroplasty. Overall patient is doing very well. She has no pain in the knee. She does note some crunching when she first stands up over the anterior knee. The crunching is not painful. She denies feelings of instability. Denies numbness or tingling in her toes. Denies redness or drainage from her incision. She is ambulating with a cane primarily for her balance. She continues to do home exercises. Examination CategorySub-CategoryDetailNotesCategory NotesGeneral examination General exam: Patient is a well-appearing female resting comfortably no acute distress. Patient is awake alert and orient x 3. Normal mood and affect. Ambulates with normal gait. X-ray Imaging Studies3 views left knee obtained and reviewed. Radiographs demonstrate well aligned well-fixed revision left total knee arthroplasty. No evidence of hardware failure or loosening. No acute fracture or dislocation. Patella tracking centrally.Left Lower ExtremityWell-healed incision with no erythema or drainage. Mild edema. No effusion. No tenderness to palpation medial joint line, lateral joint line, or peripatellar. Reproducible crepitus with sit to stand.Knee range of motion 0 to 120 degrees. Knee stable varus valgus stress. Stable anterior posterior drawer. Patella tracking centrally. 5 out of 5 quad strength. Motor intact TA, GSC, EHL, FHL. Sensation intact to light touch SPN, DPN, sural, saphenous, tibial nerve distribution. 2+ DP pulse. Toes well- perfused. No calf pain. Negative Homans.
--- OUTSIDE RECORDS SUMMARY | 2025-07-03 09:44 | XMS_ITS | Clinical Summary ---
Author Organization [facility] Address [address] [place] [address] Care Team Providers Care Cooler Supervisor Name Role Phone Vashti Engle MD Primary Care Provider [phone] Allergies No known active allergies Medications MedicationSigDispense [...] InformationValueDate RecordedSex Assigned at BirthNot on fileLegal AabJpslvw93/15/2023 7:17 PM EDTGender Identity Not on fileSexual OrientationNot on file Last Filed Vital Signs Vital SignReadingTime TakenCommentsBlood Azkypvoz342/8112 1:25 PM EST Abvhn3321 1:25 PM ESTTemperature--Respiratory Rate--Oxygen Saturation-- Inhaled Oxygen Concentration--Aqtziy51.3 kg (210 lb)06/18/2023 1:25 PM ESTHeight 162.6 cm (5' 4 )06/18/2023 1:25 PM ESTBody Mass Index36.0506/18/2023 1:25 PM EST Plan of Treatment Not on file Insurance Care Teams Team MemberRelationshipSpecialtyStart DateEnd Date Vasthi Engle MD PCP - GeneralFamily Medicine12/25/22
--- OUTSIDE RECORDS SUMMARY | 2025-07-03 09:44 | XMS_ITS | Clinical Summary ---
Author Organization [employer] Address [id number] [address] [place] [address] Care Team Providers Care Docket Specialist Name Role Phone Vashti Engle MD Primary Care Provider [phone] Allergies No known active allergies Medications MedicationSigDispense [...] limb ischemia of left lower extremity with kmawmmpf99/20/2024 Assessment & Plan (02/28/2024 9:01 AM EDT): [...] RecordedSex Assigned at BirthNot on fileLegal Sex Mopgzu0011/29/2023 3:23 PM EDTGender IdentityNot on fileSexual OrientationNot on file Last Filed Vital Signs Vital SignReadingTime TakenCommentsBlood Fklfvuxt697/8208 8:47 AM EDT Vquem104802/28/2024 8:47 AM EDTTemperature--Respiratory Rate--Oxygen Saturation 100%02/28/2024 8:47 AM EDTInhaled Oxygen Concentration--Rlpshv13 kg (205 lb) 02/28/2024 8:47 AM GOEGgrikr190.6 cm (5' 4 )02/28/2024 8:47 AM EDTBody Mass Index35.19002/28/2024 8:47 AM EDT Plan of Treatment Health MaintenanceDue DateLast DoneCommentsDepression Onepxxsdf16/06/1960 DTaP,Tdap and Td Vaccines (1 - Tdap)1967Zoster (Shingles) Vaccine (1 of 2) 1998Fall Risk Izteooblx25/06/2013Tobacco Blejfrhhq41 COVID-19 Vaccine ( season)502/, 05/13/2022, 02/03/2022, Additional history existsInfluenza Glvlkci37/01/131941/, 04/24/2022, 06/02/2021, Additional history existsRSV ( or age 60+ yrs) Qcvozrgwf09/05/2024 Medical Devices Not on file Insurance Care Teams Team MemberRelationshipSpecialtyStart DateEnd Date Vashti Engle MD [facility] [place] [address] PCP - GeneralFamily Medicine11/29/23
--- OUTSIDE RECORDS SUMMARY | 2025-07-03 09:44 | XMS_ITS | Clinical Summary ---
Author Organization [facility] Address [address] [place] [address] Care Team Providers Care Process Owner Name Role Phone Vashti Engle MD Primary Care Provider [phone] Allergies No known active allergies Medications MedicationSigDispense [...] at bedtime.Active Active Problems ProblemNoted DateDiagnosed DatePre-op furfxbxdjs95/04/2025Longstanding persistent atrial brpfszvhtfec41/04/2025ilateral leg edema11/16/2024Venous ntlutimmouyzu44/04/2025Peripheral arterial vmdryew9711/16/2024Essential iqptyugliqqt17/04/5358Enqdvgrpuuivxs10/04/2025ritical limb ischemia of left lower extremity with pubasegw78/20/2024Venous ulcer of left leg01/03/2024 Encounters DateTypeDepartmentCare MinxSuyfmeompcu68/07/2025Telephone [facility] [address] [place] [address] Marisela Hayes MA 04/15/2025Telephone [facility] [address] [place] [address] Marisela Hayes MA from Last 3 Months Family History Medical HistoryRelationNameCommentsHeart failureFatherHeart attackMotherCoronary artery diseaseSisterRelationNameStatusCommentsFatherDeceasedMotherDeceasedSister Social History Tobacco UseTypesPacks/DayYears UsedDateSmoking Tobacco: NeverSmokeless Tobacco: Never Tobacco Cessation:Counseling Given: Not Answered Alcohol UseStandard Drinks/WeekCommentsYes0 (1 standard drink = 0.6 oz pure alcohol)occasionalCommentsUnknownSex and Gender InformationValueDate RecordedSex Assigned at SypymJhwurg00/05/2025 3:32 PM EDTLegal SexFemale 11/05/2024 4:57 PM EDTGender HpychtnbFxuios13/05/2025 3:32 PM EDTSexual OrientationHeterosexual or Lweaddlh98/05/2025 3:32 PM EDT Last Filed Vital Signs Vital SignReadingTime TakenCommentsBlood Rwbogbyg256/9302/19/2025 11:35 AM EDT Fovjn565602/19/2025 11:35 AM EDTTemperature--Respiratory Rate--Oxygen Saturation 98%02/19/2025 11:35 AM EDTInhaled Oxygen Concentration--Nwqivi18 kg (194 lb) 02/19/2025 11:35 AM TOMQgveuc617.6 cm (5' 4 )02/19/2025 11:35 AM EDTBody Mass Index33.308 11:35 AM EDT Plan of Treatment Health MaintenanceDue DateLast DoneCommentsMedicare Annual Wellness (AWV) 1950Depression Lgchdfbin43/06/1960Adult Ofaquyf0204/20/1970Zoster Vaccines (1 of 2)1998Fall Risk Sqhfcweha18/06/2013COVID-19 Vaccine ( season), 08/28/2023, 05/13/2022, Additional history exists Influenza Vaccine (#1), 05/29/2023, 04/24/2022, Additional history existsPneumococcal Vaccine: 50+ FiqyhJokkzskmp49/03/2017, 05/31/2016HIB VaccinesAged OutNo longer eligible based on [...] Date Vashti Engle MD Sobia6 Cassie Prasad [facility] [place] [address] [facility] - [facility]11/11/24
--- OUTSIDE RECORDS SUMMARY | 2025-07-03 09:45 | XMS_ITS | Patient Health Record ---
Author Organization [facility] Address [address] [place] [address] Care Team Providers Care Wire Rope Sling Maker Name Role Phone Vashti Engle M.D. Primary Care Provider Unavail able Austin Perez Unavailable [phone] Jesus Stinson Unavailable [phone] DonovanEaglea Unavailable [phone] Bella Yarbrough Unavailable [phone] Allergies No Known Allergies Results Component Value Reference Range Notes Basic Metabolic Profile Reviewed date:11/24/2024 12:13:46 PM Interpretation: Performing Lab: Notes/Report: missed 2 times 11/23/2024 05:40:48 EDT ss [address] [address] Sodium Lvl 135 133-142 mmol/L Potassium Lvl4.23.4-4.8 mmol/EMxposswk97549-118 mmol/NFW01452-24 mmol/LAnion Gap 54-12Glucose Huy48385-35 mg/zCDCV683-58 mg/dLCreatinine Lvl0.830.44-1.03 mg/dL BUN Crea Ratio24.110.0-20.0 ratioCalcium Lvl8.78.6-10.3 mg/dL.eGFR Reviewed date:11/24/2024 12:13:46 PM Interpretation: Performing Lab: Notes/Report: [address] [address]Rhpzqnfez GFR>60>=60 mL/min/1.73m? [facility] have implemented the eGFR [...] date:11/24/2024 12:13:46 PM Interpretation: Performing Lab: Notes/Report: [address] [address]Wge16.512.0-16.0 g/dLHct35.436.0-46.0 %Hgb Reviewed date:11/24/2024 12:13:53 PM Interpretation: Performing Lab: Notes/Report: [address] [address]Uqi69.112.0-16.0 g/dLHct35.536.0-46.0 %.eGFR Reviewed date:11/24/2024 12:13:53 PM Interpretation: Performing Lab: Notes/Report: [address] [address]Tbpeurztm GFR55>=60 mL/min/1.73m? [facility] have implemented the eGFR [...] date:11/24/2024 12:13:53 PM Interpretation: Performing Lab: Notes/Report: [address] [address]Fsblsb Acw702908-962 mmol/LPotassium Lvl4.33.4-4.8 mmol/L Kvttcyfd22402-215 mmol/SNP33295-23 mmol/LAnion Ozg75-46Okstgsg Lls82808-96 mg/dL LZC894-25 mg/dLCreatinine Lvl1.050.44-1.03 mg/dLBUN Crea Ratio20.010.0-20.0 ratioCalcium Lvl8.88.6-10.3 mg/dLXR Knee 1 or 2 Views Left Reviewed date:11/24/2024 12:13:53 PM Interpretation: Performing Lab: Notes/Report: Patient Name: Linda Fink EXAM: XR Knee 1 or 2 Views LeftSurgery Scheduling Reviewed date:11/26/2024 02:32:09 PM Interpretation: Performing Lab: Notes/Report: Primary Insurance Company:MedicareSuDogVacayon/Assist:VARGHESE Conradurgery Location: BVurgery Date & Time:November 21, 2024Procedure:Left Total Knee ArthroplastySpecial Equipment:Kumar Persona Primary& Revision ComponentsDiagnosis:Left Knee Pain/OA Admission Type:inpatientAnesthesia Type/CPNB:EzsiygsEcg94 hrLab Location: Analy:[place] Physician:Vashti Funez Metabolic Profile Reviewed date:11/24/2024 12:13:46 PM Interpretation: Performing Lab: Notes/Report: [place] [id number] [place], [place] [address]Kabzgd Evo169050-010 mmol/LPotassium Lvl4.23.4-4.8 mmol/L Gvgmwmlw43089-102 mmol/UHW39959-22 mmol/LAnion Xkc48-98Vzaifhm Udc59566-50 mg/dL YRB745-17 mg/dLCreatinine Lvl0.870.44-1.03 mg/dLBUN Crea Ratio19.510.0-20.0 ratioCalcium Lvl8.68.6-10.3 mg/dL.eGFR Reviewed date:11/24/2024 12:13:46 PM Interpretation: Performing Lab: Notes/Report: [address] [address]Wadrdmyku GFR>60>=60 mL/min/1.73m? [facility] have implemented the eGFR [...] date:11/24/2024 12:13:46 PM Interpretation: Performing Lab: Notes/Report: [address] [address]Kjm62.712.0-16.0 g/dLHct31.936.0-46.0 %Basic Metabolic Profile Reviewed date:12/02/2024 02:47:29 PM Interpretation: Performing Lab: Notes/Report: [address] [address]Lstswc Buc034905-574 mmol/LPotassium Lvl4.13.4-4.8 mmol/L Ctwzuwtx78278-752 mmol/QGP26674-11 mmol/LAnion Syf84-71Fynokqd Ojq43085-84 mg/dL TXU850-23 mg/dLCreatinine Lvl0.960.44-1.03 mg/dLBUN Crea Ratio15.610.0-20.0 ratioCalcium Lvl8.88.6-10.3 mg/dL.eGFR Reviewed date:12/02/2024 02:47:29 PM Interpretation: Performing Lab: Notes/Report: [address] [address]Rkddzyhxx GFR>60>=60 mL/min/1.73m? [facility] have implemented the eGFR [...] date:12/02/2024 02:47:29 PM Interpretation: Performing Lab: Notes/Report: [address] [address]Umn06.912.0-16.0 g/dLHct32.836.0-46.0 %Basic Metabolic Profile Reviewed date:12/02/2024 02:47:20 PM Interpretation: Performing Lab: Notes/Report: [address] [address]Hhmbet Rik228451-332 mmol/LPotassium Lvl4.13.4-4.8 mmol/L Kypjxzlb92087-951 mmol/ZFH20667-30 mmol/LAnion Oun15-62 mmol/LGlucose Frf32012- 99 mg/zWCGK263-37 mg/dLCreatinine Lvl0.890.60-1.20 mg/dLBUN Crea Ratio16.915.0- 25.0 ratioCalcium Lvl8.58.6-10.3 mg/dL.eGFR Reviewed date:12/02/2024 02:47:20 PM Interpretation: Performing Lab: Notes/Report: [address] [address]Vywuwzamd GFR>60>=60 mL/min/1.73m? [facility] have implemented the eGFR [...] date:12/02/2024 02:47:20 PM Interpretation: Performing Lab: Notes/Report: [address] [address]Cjg32.212.0-16.0 g/dLHct30.636.0-46.0 % Reason For Referral Reason NO AUTH REQ...............................11/21/24.....................................MCR /AARP Left Total Knee Arthroplasty @ [facility] Diagnos is 1 Primary osteoarthritis of left knee (M17 .12) Diagnos is 2 Left knee pain (M25.562) Referra l [facility] Referri ng Provide r First Name Austin Referkaren krishna Provide r Last Name Chris krishna Provide r Special ity Orthopedic Surgery Referre d [facility]- Referre d Address [facility] [place], [place],[address], Procedu re 1 Arthroplasty Knee Total Med/Lat Compartm ents ([address]) General Notes Ingris Virgen 10/31/2024 07:59:31 AM >, Aracelis Matias 10/31/2024 08:37:13 AM > MEDICARE PART A ACTIVE AND EFFECTIVE 04/15/13 AND PART B ACTIVE AND EFFECTIVE 02/13/14 PER [employer] WITH AARP SECONDARY. NO AUTHORIZATION REQUIRED. FAXED TO [facility].Param Kelly 10/31/2024 08:54:48 AM > Clifford garnett Priorit y Routine Medications Medication SIG (Take, Route, Frequency, Duration) Notes Start Date End Date Status Eliquis ActiveEliquis 5 mg; Duration: 30 DaysActiveImodiumActiveLasixActivePepcidActive potassium chlorideActivetraMADolActiveverapamilActiveMetoprolol Succinate ER 100 mgTAKE 1 TABLET BY MOUTH ONCE DAILY; Duration: 90 DaysActiveMetoprolol Succinate ER 100 mg; Duration: 90 DaysActiveciprofloxacin ophthalmic 0.3%; Duration: 7 DaysActiveatorvastatinActivediclofenacActiveciprofloxacin ophthalmic 0.3%PUT 1 TO 2 DROPS IN AFFECTED EYE(S) EVERY 2 HRS. UP TO 8X'S PER DAY. FOR 2 DAYS; THEN 4 X'S DAILY FOR 5 DAYS IN BOTH EYES; Duration: 7 DaysActive Social History Tobacco Use: Social History Observation Description Date Details (start date - stop date) Never Smoker NA - NA AUDIT-C (Standard) Question Answer Notes Did you have a drink containing alcohol in the p ast year? No Astvqi5WssewisswtjthkUbubeatiShonagt Control (Standard) Question Answer Notes Tobacco use: Nonsmoker Problems Problem Type SNOMED Code ICD Code Onset Dates Problem Status W/U Status Risk Notes Problem Closed fracture of l eft tibial plateau (disorder) (05308340953783095) Closed fracture of left tibial plateau with routine healing (S82.142D) ActiveconfirmedProblemArtificial knee joint present (065919169085)Status post left knee replacement (Z96.652)ActiveconfirmedProblemClosed fracture of upper end of tibia (63741514)Closed fracture of left tibial plateau, initial encounter (S82.142A)ActiveconfirmedProblemLocalized, primary osteoarthritis of the shoulder region ()Primary osteoarthritis, left shoulder (M19.012)Active confirmedProblemOsteoarthritis of knee (172405733)Primary osteoarthritis of left knee (M17.12)ActiveconfirmedProblemLocalized, primary osteoarthritis of the shoulder region ()Primary osteoarthritis, right shoulder (M19.011) ActiveconfirmedProblemHistory of musculoskeletal operation (474384710)Aftercare following joint replacement surgery (Z47.1)Activeconfirmed Vital Signs Height 5'4 in 01/19/2025 Gxjexr305 lbs/6985MFD09.18001/19/2025 Encounters Encounter Location Date Provider Diagnosis [facility] [place] [address] 06/01/2025 Austin Perez Status post left kne e replacement Z96.652 and Aftercare following joint replacement surgery Z47.1 [facility] [place] [address] 11/17/2024 Austin Perez Primary osteoarthrit is of left knee M17.12 [facility] [address] [place], [place] [address] 11/21/2024 Austin Perez Primary osteoarthrit is of left knee M17.12 [facility] [address] [place] [address] 12/04/2024 Bellabro Yarbrough Status post left kne e replacement Z96.652 and Aftercare following joint replacement surgery Z47.1 [facility] [address] [place] [address] 01/12/2025 Jesus Stinson Pain in right should er M25.511 ; Primary osteoarthritis, right shoulder M19.011 ; Pain in left shoulder M25.512 and Primary osteoarthritis, left shoulder M19.012 [facility] [address] [place] [address] 01/19/2025 Bella Yarbrough Status post left kne e replacement Z96.652 and Aftercare following joint replacement surgery Z47.1 [facility] [address] [place] [address] 01/26/2025 Rema Dempseycomb Primary osteoarthritis, left shoulder M19.012 and Primary osteoarthritis, right shoulder M19.011 [facility] [address] [place] [address] 11/04/2024 Austin Perez Primary osteoarthrit is of left knee M17.12 ; Left knee pain M25.562 ; 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 ; Encounter for other preprocedural examination Z01.818 and Encounter for preprocedural cardiovascular examination Z01.810 Assessments Encounter Date Diagnosis (ICD Code) Assessment Notes Treatment Notes Treatment Clinical Notes Section Notes 11/04/2024 Left knee pain (ICD-10 - M25.562 ) 11/04/2024Primary osteoarthritis of left knee (ICD-10 - M17.12)11/17/2024Primary [...] / Primary osteoarthritis, right shoulder (ICD-10 - M19.011)01/26/2025Primary osteoarthritis, left shoulder (ICD-10 - M19.012)06/01/2025ftercare following joint replacement surgery (ICD-10 - Z47.1)Status post left total knee arthroplasty /Status post left knee replacement (ICD-10 - Z96.652)Status post left total knee arthroplasty /Pain in left shoulder (ICD-10 - M25.512)11/04/2024arrier or suspected carrier of Methicillin resistant Staphylococcus aureus (ICD-10 - Z22.322)11/04/2024Encounter for other preprocedural examination (ICD-10 - Z01.818)01/12/2025Primary osteoarthritis, left shoulder (ICD-10 - M19.012)11/04/2024Encounter for preprocedural cardiovascular examination (ICD-10 - Z01.810)06/01/2025OtherDiscussed treatment options with patient. Overall patient is doing well following her total knee art hroplasty. Continue ice and anti-inflammatory as needed for pain. Activity modification as needed for pain. Continue home exercises. We did discuss the need for prophylactic antibiotics with dental procedures. All questions and concerns were addressed. Patient was in agreement with the treatment plan. Will plan to see patient back in 6 months for repeat clinical and radiographic evaluation.Status post left total knee arthroplasty /11/2024Other Discussed nonoperative and operative interventions with patient. [...] Name Order Date Chest 2 views - 24667 11/04/2024 PT/ INR - [id number] 11/04/2024 EKG 11/04/2024 CBC 11/04/2024 CMP 11/04/2024 MRSA (Bilateral Nares) PCR 11/04/2024 Home PT 03/24/2024 APTT 11/04/2024 UA with Reflex C & S 11/04/2024 CT KNEE LEFT WO CONTRAST 04/21/2024 SCC- KNEE 2 VIEW LEFT - 02433 01/07/2024 SCC- SHOULDER 3 VIEW RIGHT 39138 025 SCC- SHOULDER 3 VIEW LEFT 12481 01/13/20 RSS: KNEE LEFT NAVJOT AP,NAVJOT PA ,LEFT LAT,B [place]ISE - 12854 26530 11/17/2024 RSS: KNEE POST OP RIGHT 3V AP,[place], [place] [address] 01/19/2025 RSS: KNEE POST OP LEFT 3V AP,LAT, PATELL A 72001 12/04/2024 RSS: KNEE POST OP LEFT 3V AP,LAT, PATELL A 78098 06/01/2025 RSS- PT- s/p total knee 2-3 x per week f or 6 weeks 11/04/2024 SCC- KNEE 2 VIEW LEFT - 89959 12/27/2023 SCC- KNEE 2 VIEW LEFT - 44996 04/21/2024 SCC- KNEE 2 VIEW LEFT - 48971 01/21/2024 SCC- KNEE 2 VIEW LEFT - 91514 02/18/2024 SCC- KNEE 2 VIEW LEFT - 17266 03/24/2024 Next Appt Details Provider Name:Austin Perez, 11/30/2025 10:10:00 AM, [address], [place] [address], [place], [address], Insurance Providers Payer Name Payer Address Payer Phone Subscriber Number Group Number Insured Name Patient Relationship to Insured Coverage Start Date Coverage End [place] [address] [place] [address] [id number] Yuly FINK - patient is the insuredAARP SUPPLEMENT [address] [place] [phone], CARYNEGARkiki - patient is the insured Medications Administered Medication Instructions Date of Administration Dosage Notes BUPIVACAINE gZNASBZAAUSNT47/30/20254 mLDepo-Vfauyf25 mLDepo-Medrol pRIkfkurh18/16/20241 fWiaauukaig11/16/20242 gZgwrfhnhim12/30/20254 mIophrkptiw17/14/20254 mLSENSORCAINE 0.5% mL Medical (General) History Medical History History ICD Code Atrial fibrillation HypertensionSurgical History Surgery Date(Month/Year) Left total knee replacement 11/21/2024
--- NOTE | 2025-07-03 09:48 | MR_ITS ---
The [address] [address] Patient Name: LINDA BARBOSA MRN: [id number] date: 1950 Sex: F Assigned Patient Location: MRI Current Patient Location: MRI Accession/Order Number: [id number] Exam Date: 07/03/2025 10:05 Report Date: 07/03/2025 14:20 At the request of: ELHAM ESCUDERO NP Procedure: MR lumbar spine wo con EXAMINATION: MRI LUMBAR SPINE WITHOUT IV CONTRAST CLINICAL HISTORY: Lumbar Stenosis With Neuroclaudication, Lumbar Spondylosis COMPARISON: MRI lumbar spine 06/29/2023 TECHNIQUE: Multiecho imaging was performed in the sagittal and axial planes without contrast administration. FINDINGS: Vertebral body heights appear maintained. No bone marrow edema is present. Spinal cord terminates in normal position without abnormal cord signal. No paraspinal mass. Visualized retroperitoneum demonstrates no acute findings. At T12-L1: Diffuse broad-based disc bulge is present with ligamentum flavum hypertrophy and facet joint degenerative changes causing mild canal and moderate bilateral neural foraminal stenosis. At L1-L2: Diffuse broad-based disc bulge is present with ligamentum flavum hypertrophy and facet joint degenerative changes causing moderate canal and bilateral neural foraminal stenosis. There is also approximately 6 mm retrolisthesis. At L2-L3: 6 mm retrolisthesis. Right paracentral disc bulge is present with ligamentum flavum hypertrophy and facet joint degenerative changes causing mild canal and severe right-sided neural foraminal stenosis. At L3-L4: 3 mm retrolisthesis. Mild diffuse broad-based disc bulge is present with ligamentum flavum hypertrophy and facet joint degenerative changes causing mild canal and bilateral neural foraminal stenosis. At L4-L5: 7 mm of anterolisthesis. Diffuse broad-based disc bulge is present with ligamentum flavum hypertrophy and facet joint degenerative changes. There appears to be questionable remote fractures involving the spinous process of L4 as well as L5. Findings are causing mild canal as well as moderate left and severe right neural foraminal stenosis. At L5-S1: 7 mm of anterolisthesis. Diffuse broad-based disc bulge is present with facet joint degenerative changes causing moderate canal and bilateral neural foraminal stenosis. MR/MR lumbar spine wo con IMPRESSION: Multilevel degenerative disease as described above. Impression dictated by: Audie Mondragon Jr., D.O. 07/03/2025 2:20 PM Dictation Location: [place] [address] Electronically authenticated by: [id number] Y Date: 07/03/2025 14:20
== END 2025-07-03 09:40 | disposition home or self-care (01) ==
LOC: MRI 09:41
PROVIDERS: PCP Family Medicine; Visit Provider Nurse Practitioner
DX: M48.062 Spinal stenosis, lumbar region with neurogenic claudication (principal); M47.816 Spondylosis without myelopathy or radiculopathy, lumbar region; M51.369 Other intervertebral disc degeneration, lumbar region without mention of lumbar back pain or lower extremity pain
CPT/HCPCS: 72148